=== PATIENT | male | born 1940 | race Caucasian/White ===

== ENCOUNTER 2019-07-20 11:52 | Inpatient (IN) | payer MEDICARE, BC ==
[2019-07-20] MEDS ORDERED: LIDOCAINE 1% INJ 10MG/ML (20 ML MDV) ONE ×2 (12:12→12:32)
[2019-07-20] MEDS ORDERED: NITROGLYCERIN OINT 1 INCH/GM PACKET TOPICAL ONE ×2 (12:58→13:01)
[2019-07-20] MEDS ORDERED: LIDOCAINE 1% INJ 10MG/ML (20 ML MDV) SQ ONE (13:00)
[2019-07-20] MEDS ORDERED: IV FLUID CONTINUATION 700 ML IV ONE (13:01)
[2019-07-20] MEDS ORDERED: MIDAZOLAM 2 MG/2 ML VIAL IV ONE (13:01)
[2019-07-20] MEDS ORDERED: NITROGLYCERIN SL TABS 0.4 MG TAB SUBLINGUAL ONE ×2 (13:24→13:29)
[2019-07-20] MEDS ORDERED: BIVALIRUDIN BOLUS 250 MG/50 ML IV ONE (13:29)
[2019-07-20] MEDS ORDERED: SODIUM CHLORIDE 0.9% IV ONE (13:30)
[2019-07-20] MEDS ORDERED: BIVALIRUDIN IV ONE (13:30)
[2019-07-20] MEDS ORDERED: niCARdipine 25 MG/10 ML VIAL ONE (13:33)
[2019-07-20] MEDS ORDERED: niCARdipine Syringe (1,000 mcg/10 mL) INTRACORON ONE (13:35)
[2019-07-20] MEDS: niCARdipine Syringe (1,000 mcg/10 mL) INTRACORON ONE ×2 (13:35→14:02)
[2019-07-20] MEDS ORDERED: DOPamine DRIP 800 MG in DEXTROSE/WATER 1 250ML.BAG IV ONE ×2 (13:36→13:37)
[2019-07-20] MEDS ORDERED: IOPAMIDOL-370 125ML BTL INJ ONE (13:41)
[2019-07-20] MEDS ORDERED: TICAGRELOR 90 MG TAB ONE (13:53)
[2019-07-20] MEDS ORDERED: TICAGRELOR 90 MG TAB PO ONE (13:56)
[2019-07-20] MEDS ORDERED: BIVALIRUDIN 250 MG in SODIUM CHLORIDE 0.9% 50 ML IV ONE (13:59)
[2019-07-20] MEDS ORDERED: IOPAMIDOL-370 100ML BTL INJ ONE (14:02)
[2019-07-20 14:36] LABS: Glucose,Whole Blood 215 mg/dL (75-99)
--- NOTE | 2019-07-20 15:25 | CONS ---
CONSULTATION CHIEF COMPLAINT: Chest pain. Israel is an 79-year-old gentleman with a history of rlm-viqjvos-awywjbmtu diabetes and hypertension who presented to [facility] with chest pain. He had some chest discomfort yesterday and worsening chest pain this morning. He describes it as a pressure that radiated to his back. His initial EKG showed acute ST-segment elevation in the inferior leads. He was given sublingual nitroglycerin, with which the ST- segment elevation has improved and the chest pain has resolved. At the time of my evaluation, he is pain-free, hemodynamically stable and in no apparent distress. PAST MEDICAL HISTORY: Significant for hypertension and diabetes. MEDICATIONS: Medications at home include aspirin, Lasix, Actos, glipizide, losartan, metformin and Ventolin. ALLERGIES: Allergies are as charted. FAMILY HISTORY: Negative for premature coronary artery disease. SOCIAL HISTORY: Negative for smoking, EtOH abuse or drug abuse. REVIEW OF SYSTEMS: HEENT is unremarkable. CARDIAC: As described above. RESPIRATORY: As described above. GI: Negative. GENITOURINARY: Negative. ALLERGY: Negative. IMMUNOLOGY: Negative. SKIN: Negative. MUSCULOSKELETAL: Negative. ENDOCRINE: Negative. DERMATOLOGY: Negative. CONSTITUTIONAL: Negative. ONCOLOGICAL: Negative. URANIUM PROCESSING SUPERVISOR: Negative. PHYSICAL EXAMINATION: Comfortable at rest. Vital signs are stable. There is no jugular venous distention. Chest exam reveals good air entry bilaterally. Heart exam reveals first and second heart sounds. No gallop. No murmur. Abdomen is soft, nontender. Examination of extremities did not reveal any edema. Peripheral pulses are palpable. ASSESSMENT: 1. Acute anterior wall myocardial infarction. 2. Hypertension. 3. emia. PLAN: The patient will undergo emergency cardiac catheterization with a view to performing angioplasty. MMODL / IJN: [id number] /
[2019-07-20] MEDS: DOPamine DRIP 800 MG in DEXTROSE/WATER 1 250ML.BAG IV SCH (15:27)
[2019-07-20] MEDS: SODIUM CHLORIDE 0.9% 1,000 ML IV SCH (15:29)
--- NOTE | 2019-07-20 18:00 | PTCA ---
PERCUTANEOUSTRANS CORORONARY ANGIOGRAPHY DATE OF SERVICE: 07/20/2019 PROCEDURE: Percutaneous transluminal coronary angioplasty and stenting of super dominant right coronary artery in the setting of an acute inferior myocardial infarction. Three drug- eluting stents were used. PERFORMED BY: Dr. Pili Carlos. Moderate conscious sedation time was 46 minutes. Patient was administered Versed. Oxygen saturation, hemodynamics and EKG were monitored closely. CLINICAL INFORMATION: Mr. Israel Diaz is an 79-year-old gentleman with history of type 2 diabetes, hypertension, hyperlipidemia, obesity and probable sleep apnea syndrome who came in with acute inferior PR from [facility]. He was seen and evaluated by Dr. Enciso, who performed a cardiac cath which revealed 80% proximal RCA stenosis with a heavy thrombus burden, and also major diagonal had significant disease. LAD and circumflex had noncritical disease. He was advised intervention that was performed expeditiously. PROCEDURE NOTE: The existing 6-Burmese introducer in the right femoral artery was used to perform the procedure. I used an all-right 3.5 guide catheter to cannulate the right coronary artery. Patient was administered Angiomax bolus and drip as per protocol. He also received 180 mg of Brilinta orally. I used a run-through wire to cross the lesion. Wire was kept distally. Without predilatation, an 18 mm long 4.0 caliber Xience stent was deployed, and soon after deployment there was some thrombus that went distally, and the entire vessel was occluded. The patient became transiently hypotensive with ST elevation. I gave him some nicardipine and he also received 3 mcg of dopamine very transiently. Blood pressure came back and the vessel opened up. I then noted that there was another lesion proximal to where I had deployed the stent, and this was addressed with another 8 mm Xience stent, and this telescoped into the previously placed stent. There was an acute marginal branch that came off at the junction of proximal and middle one third, and just above it there was a question of napkin ring lesion. In multiple views I was not convinced, but since patient had vessel closure with thrombus that started in that region and went distally, I decided to deploy another stent. I had difficulty getting past the existing stents. I used another truong wire with a Whisper wire, and over this Whisper wire I advanced an 8 mm 4.0 caliber Xience stent and deployed this at the acute marginal branch. Excellent angiographic result was achieved. Patient was hemodynamically stable. The sheath was taken out and Angio-Seal device used to secure hemostasis. He was sent to the ICU in a stable condition. Findings were discussed with the patient and I also communicated with his friend at home by telephone. He was sent to the ICU in a stable condition. MMLASHA / JACOBON: [id number] / NICOLE
[2019-07-20 18:04] LABS: Glucose,Whole Blood 237 mg/dL (75-99)
[2019-07-20 18:23] LABS: Basophils # (A) 0.1 k/uL (0-0.2); Basophils % (A) 1 %; Eosinophils # (A) 0.1 k/uL (0-0.7); Eosinophils % (A) 1 %; HCT 42.2 % (39.0-53.0); HGB 13.1 gm/dL (13.0-17.5); Lymphocytes # (A) 2.1 k/uL (1.0-4.8); Lymphocytes % (A) 19 %; MCH 29.6 pg (25.0-35.0); MCHC 31.1 g/dL (31.0-37.0); MCV 95.2 fL (80.0-100.0); Mean Platelet Volume 8.6; Monocytes # (A) 0.8 k/uL (0-1.0); Monocytes % (A) 7 %; Neutrophils # (A) 7.8 k/uL (1.3-7.7); Neutrophils % (A) 70 %; Platelet Count 205 k/uL (150-450); RBC 4.43 m/uL (4.30-5.90); RDW 14.5 % (11.5-15.5); WBC 11.2 k/uL (3.8-10.6)
[2019-07-20] MEDS: glipiZIDE 5 MG TAB PO SCH (18:32)
[2019-07-20 19:01] LABS: Potassium 4.8 mmol/L (3.5-5.1)
[2019-07-20 20:49] LABS: Glucose,Whole Blood 303 mg/dL (75-99)
[2019-07-20] MEDS: INSULIN ASPART (NovoLOG) 100 UNIT/ML VIAL SQ SCH (21:19)
[2019-07-21] MEDS: SODIUM CHLORIDE 0.9% 1,000 ML IV SCH (05:37)
[2019-07-21 05:59] LABS: Basophils # (A) 0.1 k/uL (0-0.2); Basophils % (A) 1 %; Eosinophils # (A) 0.1 k/uL (0-0.7); Eosinophils % (A) 1 %; HGB 12.7 gm/dL (13.0-17.5); Lymphocytes # (A) 2.2 k/uL (1.0-4.8); Lymphocytes % (A) 18 %; MCH 29.6 pg (25.0-35.0); MCHC 31.1 g/dL (31.0-37.0); MCV 95.5 fL (80.0-100.0); Mean Platelet Volume 8.9; Monocytes # (A) 1.1 k/uL (0-1.0); Monocytes % (A) 9 %; Neutrophils # (A) 8.4 k/uL (1.3-7.7); Neutrophils % (A) 69 %; Platelet Count 201 k/uL (150-450); RDW 14.7 % (11.5-15.5); WBC 12.2 k/uL (3.8-10.6)
[2019-07-21 06:17] LABS: Calcium 9.4 mg/dL (8.4-10.2); Potassium 4.5 mmol/L (3.5-5.1)
[2019-07-21 06:40] LABS: Glucose,Whole Blood 227 mg/dL (75-99)
[2019-07-21] MEDS: glipiZIDE 5 MG TAB PO SCH ×2 (06:50→17:08)
[2019-07-21] MEDS: INSULIN ASPART (NovoLOG) 100 UNIT/ML VIAL SQ SCH ×4 (06:50→20:27)
[2019-07-21] MEDS ORDERED: ATROPINE SULFATE 0.1 MG/ML 10ML SYRINGE ONE (08:17)
[2019-07-21] MEDS: TICAGRELOR 90 MG TAB PO SCH ×2 (08:30→20:26)
[2019-07-21] MEDS: ATORVASTATIN 80 MG TAB PO SCH (08:30)
[2019-07-21] MEDS: ASPIRIN 81 MG PO SCH (08:30)
[2019-07-21] MEDS ORDERED: FAMOTIDINE 20 MG/2 ML VIAL IV SCH (09:00)
[2019-07-21] MEDS ORDERED: METOPROLOL TARTRATE 12.5 MG TAB PO SCH (09:00)
[2019-07-21 11:42] LABS: Glucose,Whole Blood 261 mg/dL (75-99)
[2019-07-21] MEDS: LOSARTAN 50 MG TAB PO SCH ×2 (11:58→12:17)
--- NOTE | 2019-07-21 14:21 | PN ---
PROGRESS NOTE Mr. Diaz is an 79-year-old gentleman who is a fbr-qdnarfe-rdykntoke diabetic and hypertensive, who was admitted to the hospital with ST elevation myocardial infarction. The patient had a cardiac catheterization by Dr. Enciso and subsequently had percutaneous intervention by Dr. Pili Carlos. The patient had a stent placement to the RCA. Xience stent was deployed. The patient has remained relatively stable, but had developed a source of bradycardia with heart rates dipping into 30s and having junctional rhythm. Most seemed to be in sinus rhythm. He is on metoprolol, which is being held. He will continue with the rest of the medications. His activity to be increased as tolerated. He is also on dopamine. His blood pressure is running about 130/70, heart rate is varying between 38-85. O2 saturation 96%. Respirations are 12. His urine output is fair. LAB VALUES: [place] [address]. Electrolytes are within normal limits. Creatinine is 1.23, BUN is 31. Sugars are running between 250-300. His troponin went up maximal 33. Clinically lungs appear to be clear. Heart is regular, but slow. No JVD or peripheral edema. His groin is soft. FINAL IMPRESSION: 1. Status post inferior wall myocardial infarction and stent placement. 2. Bradycardia. PLAN: Will discontinue beta chata. Continue dopamine for now. Continue rest of the medication. Further recommendation will depend upon the course. He will stay in the ICU for 24 hours. MMLASHA / JACOBON: [id number] /
[2019-07-21 14:24] LABS: Hemoglobin A1C 8.9 % (4.0-6.0)
--- NOTE | 2019-07-21 15:12 | P.HPIM ---
History of Present Illness This is a pleasant 79 years old female with past medical history of diabetes mellitus, hypertension. She was transferred from [facility] chest pain. Patient presents with central chest pain, of daily duration of the left side radiating to the neck about 4/10 in severity, associated with little dyspnea, nausea and coughing. No vomiting. No change in urine or bowel habits EKG changes showing ST elevation in inferior leads. Patient has been evaluated by hand cigar making supervisor and underwent emergent cardiac angiogram, and found to have 80% blockage of the right coronary artery, patient underwent difficult PCI with 3 stent placed in the right coronary artery, during the procedure patient became transiently hypotensive and needed dopamine for short period. Postprocedure patient stabilized and transferred to the ICU for further monitoring and treatment Currently vitals are stable. Labs showed leukocytosis of 11.2 K, creatinine is elevated 1.4, glucose high at 215-303 Currently patient is on normal saline 75 mL/h, glipizide 5 mg twice a day, aspirin and Brilinta, metoprolol 12.5 mg Past Medical History Past Medical History: Diabetes Mellitus, Hypertension Additional Past Medical History / Comment(s): sinusitis, diverticulits History of Any Multi-Drug Resistant Organisms: None Reported Past Surgical History: Bowel Resection, Cholecystectomy Additional Past Surgical History / Comment(s): bowel resection d/t diverticulitis, colonoscopy Past Anesthesia/Blood Transfusion Reactions: No Reported Reaction Past Psychological History: No Psychological Hx Reported Additional Psychological History / Comment(s): pt lives with his girlfriend jose, is independant, no assitive devices.no outside services. 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 Smoking Status: Former smoker Past Alcohol Use History: Occasional Past Drug Use History: None Reported - Past Family History Mother Additional Family Medical History / Comment(s): reproductive cancer Father Family Medical History: Diabetes Mellitus Medications and Allergies Home Medications Medication Instructions Recorded Confirmed Type Losartan [Cozaar] 25 mg PO DAILY 01/29/15 07/20/19 History glipiZIDE [Glipizide] 10 mg PO BID 01/29/15 07/20/19 History metFORMIN HCL 1,000 mg PO BID 01/29/15 07/20/19 History Albuterol Sulfate [Ventolin HFA] 2 puff INHALATION RT-Q6H PRN 07/20/19 07/20/19 History Aspirin [Adult Low Dose Aspirin EC] 81 mg PO DAILY 07/20/19 07/20/19 History Furosemide [Lasix] 20 mg PO DAILY 07/20/19 07/20/19 History Pioglitazone [Actos] 30 mg PO DAILY 07/20/19 07/20/19 History Allergies Allergy/AdvReac Type Severity Reaction Status Date / Time Mushroom Allergy Vomiting Verified 01/29/15 19:06 Penicillins Allergy Unknown Verified 01/29/15 19:06 Physical Exam Vitals: Vital Signs Temp Pulse Resp BP Pulse Ox 07/21/19 12:00 98.4 F 38 L 21 137/60 96 07/21/19 11:00 85 12 127/66 92 L 07/21/19 10:30 51 L 12 129/54 93 L 07/21/19 10:00 40 L 22 112/72 97 07/21/19 09:30 41 L 10 L 119/61 93 L 07/21/19 09:00 50 L 12 120/52 96 07/21/19 08:30 60 12 115/47 92 L 07/21/19 08:00 98.1 F 51 L 12 122/65 93 L 07/21/19 07:30 25 L 12 130/51 92 L 07/21/19 07:00 50 L 7 L 139/52 97 07/21/19 06:30 50 L 15 133/52 94 L 07/21/19 06:00 36 L 19 92 L 07/21/19 05:30 31 L 21 117/42 93 L 07/21/19 05:00 48 L 9 L 107/61 93 L 07/21/19 04:30 45 L 16 98/57 95 07/21/19 04:00 97.7 F 50 L 9 L 88/45 89 L 07/21/19 03:30 46 L 25 H 102/70 95 07/21/19 03:00 53 L 13 104/53 93 L 07/21/19 02:30 31 L 16 121/108 90 L 07/21/19 02:00 53 L 17 96 07/21/19 01:30 39 L 21 121/108 91 L 07/21/19 01:00 65 9 L 110/66 90 L 07/21/19 00:30 55 L 20 112/61 93 L 07/21/19 00:00 97 F L 44 L 18 101/49 95 07/20/19 23:30 49 L 13 108/58 94 L 07/20/19 23:12 52 L 10 L 108/58 91 L 07/20/19 23:00 38 L 13 123/66 96 07/20/19 22:30 54 L 17 136/77 93 L 07/20/19 22:00 37 L 20 95 07/20/19 21:30 42 L 7 L 136/60 93 L 07/20/19 21:00 51 L 7 L 138/93 91 L 07/20/19 20:30 36 L 19 142/85 07/20/19 20:00 98.0 F 55 L 14 105/48 92 L 07/20/19 19:30 55 L 12 107/47 92 L 07/20/19 19:00 42 L 8 L 159/92 07/20/19 18:30 72 15 135/71 07/20/19 18:00 34 L 12 134/74 94 L 07/20/19 17:30 50 L 12 146/75 96 07/20/19 17:00 56 L 22 94 L 07/20/19 16:30 34 L 11 L 140/62 94 L 07/20/19 16:00 97.6 F 53 L 17 140/62 93 L 07/20/19 15:31 97.6 F 07/20/19 15:30 31 L 18 139/72 94 L Intake and Output 07/21/19 07/21/19 07/21/19 06:59 14:59 22:59 Intake Total 600 600 Output Total 1300 200 Balance -700 400 Intake: IV 600 600 Sodium Chloride 0.9% 1, 600 600 000 ml @ 50 mls/hr IV . Q20H [facility] Rx#:[id number] Output: Urine 1300 200 Other: Voiding Method Bedside Commode Bedside Commode Weight 143 kg Results CBC & Chem 7: 07/21/19 05:42 07/21/19 05:42 Labs: Abnormal Lab Results - Last 24 Hours (Table) 07/20/19 07/20/19 07/20/19 Range/Units 18:03 18:06 18:06 WBC 11.2 H (3.8-10.6) k/uL Hgb (13.0-17.5) gm/dL Neutrophils # 7.8 H (1.3-7.7) k/uL Monocytes # (0-1.0) k/uL BUN 33 H (9-20) mg/dL Creatinine 1.42 H (0.66-1.25) mg/dL Glucose 219 H (74-99) mg/dL POC Glucose (mg/dL) 237 H (75-99) mg/dL Hemoglobin A1c (4.0-6.0) % Troponin I (0.000-0.034) ng/mL 07/20/19 07/20/19 07/21/19 Range/Units 18:06 20:48 00:08 WBC (3.8-10.6) k/uL Hgb (13.0-17.5) gm/dL Neutrophils # (1.3-7.7) k/uL Monocytes # (0-1.0) k/uL BUN (9-20) mg/dL Creatinine (0.66-1.25) mg/dL Glucose (74-99) mg/dL POC Glucose (mg/dL) 303 H (75-99) mg/dL Hemoglobin A1c (4.0-6.0) % Troponin I 16.600 H* 30.000 H* (0.000-0.034) ng/mL 07/21/19 07/21/19 07/21/19 Range/Units 05:42 05:42 05:42 WBC 12.2 H (3.8-10.6) k/uL Hgb 12.7 L (13.0-17.5) gm/dL Neutrophils # 8.4 H (1.3-7.7) k/uL Monocytes # 1.1 H (0-1.0) k/uL BUN 31 H (9-20) mg/dL Creatinine (0.66-1.25) mg/dL Glucose 230 H (74-99) mg/dL POC Glucose (mg/dL) (75-99) mg/dL Hemoglobin A1c 8.9 H (4.0-6.0) % Troponin I (0.000-0.034) ng/mL 07/21/19 07/21/19 07/21/19 Range/Units 05:42 06:39 11:41 WBC (3.8-10.6) k/uL Hgb (13.0-17.5) gm/dL Neutrophils # (1.3-7.7) k/uL Monocytes # (0-1.0) k/uL BUN (9-20) mg/dL Creatinine (0.66-1.25) mg/dL Glucose (74-99) mg/dL POC Glucose (mg/dL) 227 H 261 H (75-99) mg/dL Hemoglobin A1c (4.0-6.0) % Troponin I 33.000 H* (0.000-0.034) ng/mL Thrombosis Risk Factor Assmnt - Choose All That Apply Any of the Below Risk Factors Present?: Yes Each Factor Represents 1 point: Acute AL Other Risk Factors: Yes Each Risk Factor Represents 2 Points: Patient confined to bed Each Risk Factor Represents 3 Points: Age 75 years or older Other congenital or acquired thrombophilia - If yes, enter type in comment: No Thrombosis Risk Factor Assessment Total Risk Factor Score: 6 Thrombosis Risk Factor Assessment Level: High Risk Assessment and Plan Assessment: Acute inferior STEMI, status post emergent cardiac angiogram with PCI of the Mild leukocytosis, mostly reactive, no signs symptoms of infection Acute kidney injury versus chronic kidney disease Diabetes mellitus, with hyperglycemia Hypertension Plan: This is a pleasant 79 years old female who presents with acute STEMI. Status post cardiac cath and stent placement. Cardiology are following the case closely. Continue with dual antiplatelet therapy. Check hemoglobin A1c. Follow-up WBC. Patient with kidney injury and on the top of that she got angiogram and was transected hypotensive, we'll call nephrology consult, continue with IV fluids Labs and medication were reviewed.. Continue same treatment. Continue with symptomatic treatment. Resume home medication. Monitor lytes and vitals. DVT and GI prophylaxis. Further recommendations of the clinical course of the patient DVT prophylaxis: Dual antiplatelet therapy GI Prophylaxis: Pepcid
[2019-07-21] MEDS ORDERED: HYDROmorphone 0.5 MG/0.5 ML SYRINGE IVP STA (16:37)
[2019-07-21 17:07] LABS: Glucose,Whole Blood 207 mg/dL (75-99)
--- NOTE | 2019-07-21 18:25 | XR ---
EXAMINATION TYPE: XR chest 1V portable DATE OF EXAM: 07/21/2019 COMPARISON: 01/29/2015 HISTORY: Short of breath TECHNIQUE: Single view FINDINGS: Heart is enlarged. There is mild pulmonary congestion. There are chest leads. There is no d efinite pleural effusion. Bony thorax appears intact. IMPRESSION: Cardiomegaly and mild pulmonary congestion that is increased compared to last exam. No ob vious heart failure.
--- NOTE | 2019-07-21 19:13 | CONS ---
CONSULTATION REASON FOR CONSULT: Renal failure. HISTORY OF PRESENT ILLNESS: Patient is an 79-year-old male who was admitted to the hospital with complaints of chest pain. The pain was radiating to the back. The patient initially presented to [facility] and was transferred to [place]. His EKG showed ST-segment elevation in the inferior leads. He was taken for cardiac catheterization yesterday and had stent 3 coronary stents placed. The patient denies any prior history of kidney diseases. His chest pain has resolved. The patient's creatinine was 1.23 mg/dL today. Yesterday it was 1.42 and review of previous labs shows a creatinine of about 1.3-1.2 in 2015. Patient does have a history of hypertension and type 2 diabetes. 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 The patient denies use of any nonsteroidal anti-inflammatory agents. He had been on angiotensin receptor blockers at home prior to admission. Patient's heart rate has also been low. His heart rate was as low as 25 this morning. Currently patient is maintained on dopamine. He is being followed by Cardiology. PAST MEDICAL HISTORY: Diabetes hypertension, dyslipidemia, osteoarthritis. MEDICATIONS: Medications prior to admission included aspirin, Lasix, Actos, glipizide, losartan, metformin, Ventolin. ALLERGIES: PENICILLIN AND MUSHROOMS. SOCIAL HISTORY: Previous history of smoking. No history of alcohol abuse or drug abuse. EXAMINATION: Patient is awake, comfortable, not in any acute distress. Blood pressure was 127/66, heart rate 51 per minute. He is afebrile. Examination of the heart S1, S2. Examination of lungs decreased breath sounds at bases. ABDOMEN: Soft, nontender. Examination of lower extremities shows chronic skin changes. Chronic edema is noted as well. CARD BOXER exam grossly intact. LAB: Show sodium of 139, potassium 4.5, chloride 105, BUN 31, serum creatinine 1.23. Troponin 33. Hemoglobin 12.7. UA is not available. ASSESSMENT: 1. Acute kidney injury, mostly associated with hypotension hypoperfusion. The patient is status post cardiac catheterization yesterday. Continue to monitor his renal function. 2. Chronic kidney disease NKF stage III. Previous creatinine about 1.3-1.2 mg/dL in 2015 as well. Most likely secondary to nephrosclerosis. Check urinalysis. Rule out proteinuria. 3. Type 2 diabetes, maintained on oral hypoglycemic agents including metformin. 4. Hypertension blood pressure had been low yesterday and sap plant maintenance consultant today. We can resume angiotensin receptor blockers. Consider decreasing dose if blood pressure remains low. 5. Bradycardia, maintained on dopamine, being followed by Cardiology. Not on any beta blockers. 6. Acute ST elevation myocardial infarction status post cardiac catheterization and coronary stent placement to RCA. PLAN: Continue normal saline at 50 mL an hour. May continue with angiotensin receptor blockers if blood pressure drops again. Decrease Cozaar to 25 mg per day. Avoid any other nephrotoxic agents. Check urinalysis. MMODL / IJN: [id number] /
[2019-07-21] MEDS: metFORMIN 500 MG TAB PO SCH (20:13)
[2019-07-21 20:24] LABS: Glucose,Whole Blood 206 mg/dL (75-99)
[2019-07-21] MEDS: FAMOTIDINE 20 MG TAB PO SCH (20:27)
[2019-07-21] MEDS: DOPamine DRIP 800 MG in DEXTROSE/WATER 1 250ML.BAG IV SCH (20:27)
[2019-07-21 22:59] LABS: Appearance,Urine Clear (Clear); Bacteria,Urine Rare /hpf; Bilirubin,Urine Negative (Negative); Blood,Urine Negative (Negative); Color,Urine Yellow; Glucose,Urine (UA) 3+ (Negative); Ketones,Urine Trace (Negative); Leukocyte Esterase,Urine Negative (Negative); Mucus,Urine Rare /hpf; Nitrite,Urine Negative (Negative); PH, Urine 5.5 (5.0-8.0); Protein,Urine 1+ (Negative); RBC,Urine <1 /hpf (0-5); Specific Gravity,Urine 1.035 (1.001-1.035); Squamous Epithelial Cell,Urine <1 /hpf (0-4); Urobilinogen,Urine <2.0 mg/dL (<2.0); WBC,Urine 2 /hpf (0-5)
[2019-07-22] MEDS ORDERED: IV FLUID CONTINUATION 1,000 ML IV ONE (02:45)
[2019-07-22] MEDS ORDERED: LIDOCAINE 1% INJ 10MG/ML (20 ML MDV) SQ ONE (03:07)
--- NOTE | 2019-07-22 03:27 | P.PCN ---
Date of Procedure: 07/22/19 Preoperative Diagnosis: Tachybradycardia syndrome with long pauses Postoperative Diagnosis: The same Procedure(s) Performed: Temporary pacemaker insertion Description of Procedure: Patient was brought to the lab in a fasting state. He was prepped and draped in the usual fashion. The right groin is infiltrated with lidocaine and right femoral vein was entered using Seldinger technique and a 6-Vincentian sheath was left in place. A balloon-tip temporary pacemaker wire was advanced under fluoroscopy near the floor of the right ventricle. Satisfactory thresholds were obtained. The pacemaker is set at a rate of 50 and an output of 3. She tolerated the procedure well. The duration of the procedure 13 minutes. Final impression: #1. Successful implantation of temporary pacemaker from the right groin, under fluoroscopy.
[2019-07-22 04:46] LABS: Basophils % (A) 0 %; Eosinophils % (A) 0 %; HCT 37.4 % (39.0-53.0); HGB 12.1 gm/dL (13.0-17.5); Lymphocytes # (A) 1.5 k/uL (1.0-4.8); Lymphocytes % (A) 11 %; MCH 31.1 pg (25.0-35.0); MCHC 32.4 g/dL (31.0-37.0); Mean Platelet Volume 9.8; Monocytes # (A) 1.4 k/uL (0-1.0); Monocytes % (A) 10 %; Neutrophils # (A) 10.8 k/uL (1.3-7.7); Neutrophils % (A) 77 %; Platelet Count 184 k/uL (150-450); RBC 3.89 m/uL (4.30-5.90); RDW 14.7 % (11.5-15.5)
[2019-07-22 04:56] LABS: Calcium 9.1 mg/dL (8.4-10.2); Potassium 4.5 mmol/L (3.5-5.1)
[2019-07-22 05:58] LABS: Glucose,Whole Blood 231 mg/dL (75-99)
[2019-07-22] MEDS: glipiZIDE 5 MG TAB PO SCH ×2 (06:42→17:06)
[2019-07-22] MEDS: MIDODRINE 5 MG TAB PO SCH ×2 (06:42→17:06)
[2019-07-22] MEDS: metFORMIN 500 MG TAB PO SCH ×2 (06:43→17:06)
[2019-07-22] MEDS: INSULIN ASPART (NovoLOG) 100 UNIT/ML VIAL SQ SCH ×4 (06:43→20:44)
--- NOTE | 2019-07-22 06:44 | XR ---
EXAMINATION TYPE: XR chest 1V portable DATE OF EXAM: 07/22/2019 HISTORY: shortness of breath. REFERENCE: Previous study dated 07/21/2019. FINDINGS: The heart is enlarged. There is improved vascular congestion. There is no ranjit edema. No d efinite pleural fluid is seen. There is some left basilar airspace disease either representing atelec tasis or pneumonia. IMPRESSION: OVERALL THERE HAS BEEN IMPROVEMENT IN THE APPEARANCE OF THE CHEST WITH DECREASING VASCULAR CONGESTION .
[2019-07-22] MEDS: SODIUM CHLORIDE 0.9% 1,000 ML IV SCH (06:46)
[2019-07-22] MEDS: ASPIRIN 81 MG PO SCH (08:31)
[2019-07-22] MEDS: TICAGRELOR 90 MG TAB PO SCH ×2 (08:31→20:44)
[2019-07-22] MEDS: ATORVASTATIN 80 MG TAB PO SCH (08:31)
[2019-07-22] MEDS: FAMOTIDINE 20 MG TAB PO SCH (08:31)
[2019-07-22 11:40] LABS: Glucose,Whole Blood 179 mg/dL (75-99)
[2019-07-22] MEDS: LOSARTAN 50 MG TAB PO SCH (11:45)
--- NOTE | 2019-07-22 14:13 | PN ---
PROGRESS NOTE This is an 79-year-old gentleman with history of hypertension, fxj-prccjnc-zpgqctcfl diabetes mellitus, who was admitted with inferior wall DE and underwent stent placement of the RCA. The patient has been hypotensive and bradycardic. He did develop significant pauses up to 10-16 seconds last night associated with dizziness. The patient had a temporary pacemaker implantation and has been stable since then. Still his blood pressure is running about 90-100 systolic. He is still on small dose of dopamine. His urine output for the last 24 hours has been about 1800. A chest x-ray has showed improvement in congestion. LAB WORK: [place] [address], hemoglobin is normal. His creatinine is 1.34. Blood sugars are running about 228. His vital signs showed normal temperature, heart rate is in the 50s, respirations are about 20, saturations are 99%. Clinically, patient appears to be in no acute distress. Does complain of discomfort related to staying in bed and inability to move. Lungs appear to be clear. Heart is regular. His echocardiogram showed mild hypokinesia of the inferior wall areas with ejection fraction 45 to 50 percent. IMPRESSION: 1. Status post acute inferior wall DE and stent placement. 2. Ischemic cardiomyopathy with hypokinesis, inferior wall with ejection fraction of 45-50 percent. 3. Sick sinus syndrome with long pauses, status post temporary pacemaker implantation. 4. Hypertension history, but current presenting hypotension. PLAN: We will continue his current medical therapy. Hold his Cozaar and beta blockers. Continue to monitor his rhythm. If the patient continues to have these long pauses without recovery, patient may need a permanent pacemaker implantation. Further recommendations depend upon the clinical course. MMODL / IJN: [id number] /
--- NOTE | 2019-07-22 14:49 | PN ---
PROGRESS NOTE Patient is seen for followup for acute kidney injury. The patient continues to have long pauses and his blood pressure was low. Urine output had dropped to about 0 mL/hour overnight. This morning, patient had a temporary pacemaker placed. His heart rate is better. Urine output seems to have picked up to about 15 mL/hour. The patient is comfortable awake he is not in any acute distress. PHYSICAL EXAMINATION: On examination, blood pressure was 94/52, heart rate 51 per minute. He is afebrile. Examination shows edema 1+ bilaterally. Abdomen is soft, nontender, obese. Examination of lungs decreased breath sounds at bases. COMMUNITY OUTREACH COORDINATOR exam grossly intact. LABS: Show sodium 138, potassium 4.5, chloride 102, BUN 31, creatinine 1.34, hemoglobin 12.1 g/dL. ASSESSMENT: 1. Acute kidney injury associated with hypotension, hypoperfusion. Serum creatinine is higher again as patient's blood pressure was quite low overnight. Urine output seems to have picked up now after pacemaker placement. Continue to monitor for now. I will discontinue the losartan as blood pressure remains low. I will also add midodrine. 2. Status post acute ST-elevation myocardial infarction status post cardiac catheterization with RCA stenting. 3. Bradycardia, associated with inferior wall myocardial infarction. 4. Hypotension associated with bradycardia, myocardial infarction, maintained on dopamine currently at 2 mics. 5. Hypertension. Blood pressure is currently low. Hold off on angiotensin receptor blockers. PLAN: Hold losartan for now. Add midodrine. Continue to avoid nephrotoxic agents. Repeat labs in a.m. MMHALL / IJN: [id number] /
[2019-07-22 16:52] LABS: Glucose,Whole Blood 166 mg/dL (75-99)
[2019-07-22 20:15] LABS: Glucose,Whole Blood 230 mg/dL (75-99)
--- NOTE | 2019-07-22 20:17 | P.PN ---
Subjective This is a pleasant 79 years old female with past medical history of diabetes mellitus, hypertension. She was transferred from [facility] chest pain. Patient presents with central chest pain, of daily duration of the left side radiating to the neck about 4/10 in severity, associated with little dyspnea, nausea and coughing. No vomiting. No change in urine or bowel habits EKG changes showing ST elevation in inferior leads. Patient has been evaluated by yard driver and underwent emergent cardiac angiogram, and found to have 80% blockage of the right coronary artery, patient underwent difficult PCI with 3 stent placed in the right coronary artery, during the procedure patient became transiently hypotensive and needed dopamine for short period. Postprocedure patient stabilized and transferred to the ICU for further monitoring and treatment Currently vitals are stable. 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 No chest pain or dyspnea. Hematology Technologist following the case closely, losartan. And medial drain was admitted, currently blood pressure 127/53 with heart rate is 50s, WBC 14.4 K, creatinine 1.3 and stable, glucose controlled less than 200 possible patient will need permanent pacemaker and down the root Review of systems CONSTITUTIONAL: No fever, no malaise, no fatigue. HEENT: No recent visual problems or hearing problems. Denied any sore throat. CARDIOVASCULAR: No orthopnea, PND, no palpitations, no syncope. PULMONARY: No shortness of breath, no cough, no hemoptysis. GASTROINTESTINAL: No diarrhea, no nausea, no vomiting, no abdominal pain. Normoactive bowel sounds. NEUROLOGICAL: No headaches, no weakness, no numbness. HEMATOLOGICAL: Denies any bleeding or petechiae. GENITOURINARY: Denies any burning micturition, frequency, or urgency. MUSCULOSKELETAL/RHEUMATOLOGICAL: Denies any joint pain, swelling, or any muscle pain. ENDOCRINE: Denies any polyuria or polydipsia. Active Medications Generic Name Dose Route Start Last Admin Trade Name Freq PRN Reason Stop Dose Admin Aspirin 81 mg 07/21/19 09:00 07/22/19 08:31 Aspirin PO 81 mg DAILY PRIYA Administration Atorvastatin Calcium 80 mg 07/21/19 09:00 07/22/19 08:31 Lipitor PO 80 mg DAILY PRIYA Administration Famotidine 20 mg 07/23/19 09:00 Pepcid PO DAILY PRIYA Glipizide 5 mg 07/20/19 17:30 07/22/19 17:06 Glucotrol PO 5 mg AC-BID PRIYA Administration Dopamine HCl/Dextrose 800 mg/ 250 mls @ 8.114 mls/hr 07/20/19 15:00 07/21/19 20:27 IV Solution IV 3 mcg/kg/min .Q24H PRIYA 8.114 mls/hr Administration Protocol 3 MCG/KG/MIN Sodium Chloride 1,000 mls @ 20 mls/hr 07/22/19 03:30 07/22/19 06:46 Saline 0.9% IV 20 mls/hr .Q24H PRIYA Administration Insulin Aspart 0 unit 07/20/19 21:00 07/22/19 17:06 Novolog SQ 2 unit ACHS PRIYA Administration Protocol Losartan Potassium 50 mg 07/21/19 09:00 07/22/19 11:45 Cozaar PO Not Given DAILY [facility] Metformin HCl 500 mg 07/21/19 19:15 07/22/19 17:06 Glucophage PO 500 mg BID-W/MEALS PRIYA Administration Midodrine 10 mg 07/22/19 07:30 07/22/19 17:06 Proamatine PO 10 mg AC-BID PRIYA Administration Ticagrelor 90 mg 07/21/19 09:00 07/22/19 08:31 Brilinta PO 90 mg BID PRIYA Administration Objective - Vital Signs Vital signs: Vital Signs Temp 98.8 F 07/22/19 16:00 Pulse 58 L 07/22/19 19:00 Resp 22 07/22/19 19:00 BP 119/51 07/22/19 19:00 Pulse Ox 96 07/22/19 19:00 Intake & Output 07/22/19 07/22/19 07/23/19 06:59 18:59 06:59 Intake Total 860.306 380 30 Output Total 570 214 30 Balance 290.306 166 0 Weight 143.2 kg Intake: IV 625 280 30 Sodium Chloride 0.9% 1, 575 160 20 000 ml @ 50 mls/hr IV . Q20H PRIYA Rx#:[id number] TVP 10 mL/hour .9 120 10 Intake, IV Titration 235.306 100 Amount DOPamine DRIP 800 mg In 235.306 Dextrose/Water 1 250ml. bag @ 3 MCG/KG/MIN 8.114 mls/hr IV .Q24H PRIYA Rx#: [id number] Sodium Chloride 0.9% 1, 100 000 ml @ 20 mls/hr IV . Q24H PRIYA Rx#:[id number] Output: Urine 570 214 30 Other: Voiding Method Indwelling Catheter Indwelling Catheter - Exam GENERAL: The patient is alert and oriented x3, not in any acute distress. Well developed, well nourished. HEENT: Pupils are round and equally reacting to light. EOMI. No scleral icterus. No conjunctival pallor. Normocephalic, atraumatic. No pharyngeal erythema. No thyromegaly. CARDIOVASCULAR: S1 and S2 present. No murmurs, rubs, or gallops. PULMONARY: Chest is clear to auscultation, no wheezing or crackles. ABDOMEN: Soft, nontender, nondistended, normoactive bowel sounds. No palpable organomegaly. MUSCULOSKELETAL: No joint swelling or deformity. EXTREMITIES: No cyanosis, clubbing, or pedal edema. NEUROLOGICAL: Gross neurological examination did not reveal any focal deficits. SKIN: No rashes. no petechiae. - Labs CBC & Chem 7: 07/22/19 04:12 07/22/19 04:12 Labs: Abnormal Lab Results - Last 24 Hours (Table) 07/21/19 07/21/19 07/22/19 Range/Units 20:22 22:20 04:12 WBC 14.0 H (3.8-10.6) k/uL RBC 3.89 L (4.30-5.90) m/uL Hgb 12.1 L (13.0-17.5) gm/dL Hct 37.4 L (39.0-53.0) % Neutrophils # 10.8 H (1.3-7.7) k/uL Monocytes # 1.4 H (0-1.0) k/uL BUN (9-20) mg/dL Creatinine (0.66-1.25) mg/dL Glucose (74-99) mg/dL POC Glucose (mg/dL) 206 H (75-99) mg/dL Urine Protein 1+ H (Negative) Urine Glucose (UA) 3+ H (Negative) Urine Ketones Trace H (Negative) Urine Bacteria Rare H (None) /hpf Urine Mucus Rare H (None) /hpf 07/22/19 07/22/19 07/22/19 Range/Units 04:12 05:56 11:39 WBC (3.8-10.6) k/uL RBC (4.30-5.90) m/uL Hgb (13.0-17.5) gm/dL Hct (39.0-53.0) % Neutrophils # (1.3-7.7) k/uL Monocytes # (0-1.0) k/uL BUN 31 H (9-20) mg/dL Creatinine 1.34 H (0.66-1.25) mg/dL Glucose 228 H (74-99) mg/dL POC Glucose (mg/dL) 231 H 179 H (75-99) mg/dL Urine Protein (Negative) Urine Glucose (UA) (Negative) Urine Ketones (Negative) Urine Bacteria (None) /hpf Urine Mucus (None) /hpf 07/22/19 Range/Units 16:51 WBC (3.8-10.6) k/uL RBC (4.30-5.90) m/uL Hgb (13.0-17.5) gm/dL Hct (39.0-53.0) % Neutrophils # (1.3-7.7) k/uL Monocytes # (0-1.0) k/uL BUN (9-20) mg/dL Creatinine (0.66-1.25) mg/dL Glucose (74-99) mg/dL POC Glucose (mg/dL) 166 H (75-99) mg/dL Urine Protein (Negative) Urine Glucose (UA) (Negative) Urine Ketones (Negative) Urine Bacteria (None) /hpf Urine Mucus (None) /hpf Assessment and Plan Assessment: Acute inferior STEMI, status post emergent cardiac angiogram with PCI of the RCA Ischemic cardiomyopathy with ejection fraction 45-50% Sick sinus syndrome status post temporal pacemaker placement Mild leukocytosis, mostly reactive, no signs symptoms of infection Acute kidney injury versus chronic kidney disease Diabetes mellitus, with hyperglycemia Hypertension Plan: This is a pleasant 79 years old female who presents with acute STEMI. Status post cardiac cath and stent placement. Cardiology are following the case closely. Continue with dual antiplatelet therapy. Check hemoglobin A1c. Follow-up WBC. Patient with kidney injury and on the top of that she got angiogram and was transected hypotensive, we'll call nephrology consult, continue with IV fluids Labs and medication were reviewed.. Continue same treatment. Continue with symptomatic treatment. Resume home medication. Monitor lytes and vitals. DVT and GI prophylaxis. Further recommendations of the clinical course of the patient DVT prophylaxis: Dual antiplatelet therapy GI Prophylaxis: Pepcid
[2019-07-23 04:27] LABS: Basophils # (A) 0.1 k/uL (0-0.2); Basophils % (A) 0 %; Eosinophils # (A) 0.2 k/uL (0-0.7); Eosinophils % (A) 1 %; HGB 11.7 gm/dL (13.0-17.5); Hypochromasia Slight; Lymphocytes # (A) 2.4 k/uL (1.0-4.8); Lymphocytes % (A) 17 %; MCH 30.8 pg (25.0-35.0); MCHC 31.6 g/dL (31.0-37.0); MCV 97.4 fL (80.0-100.0); Mean Platelet Volume 9.9; Monocytes # (A) 1.6 k/uL (0-1.0); Monocytes % (A) 12 %; Neutrophils # (A) 9.4 k/uL (1.3-7.7); Neutrophils % (A) 67 %; Platelet Count 185 k/uL (150-450); RDW 14.9 % (11.5-15.5)
[2019-07-23 04:48] LABS: Calcium 8.5 mg/dL (8.4-10.2); Potassium 4.5 mmol/L (3.5-5.1)
[2019-07-23] MEDS: DOPamine DRIP 800 MG in DEXTROSE/WATER 1 250ML.BAG IV SCH ×2 (05:32→16:33)
[2019-07-23] MEDS: SODIUM CHLORIDE 0.9% 1,000 ML IV SCH (05:33)
[2019-07-23 06:53] LABS: Glucose,Whole Blood 200 mg/dL (75-99)
[2019-07-23] MEDS: INSULIN ASPART (NovoLOG) 100 UNIT/ML VIAL SQ SCH ×4 (07:04→20:22)
[2019-07-23] MEDS: glipiZIDE 5 MG TAB PO SCH ×2 (07:05→16:49)
[2019-07-23] MEDS: metFORMIN 500 MG TAB PO SCH (07:05)
[2019-07-23] MEDS: MIDODRINE 5 MG TAB PO SCH ×2 (07:05→16:47)
[2019-07-23] MEDS: FAMOTIDINE 20 MG TAB PO SCH (08:28)
[2019-07-23] MEDS: TICAGRELOR 90 MG TAB PO SCH ×2 (08:28→20:22)
[2019-07-23] MEDS: ASPIRIN 81 MG PO SCH (08:28)
[2019-07-23] MEDS: LOSARTAN 50 MG TAB PO SCH (08:29)
[2019-07-23] MEDS: ATORVASTATIN 80 MG TAB PO SCH (08:29)
--- NOTE | 2019-07-23 10:55 | P.PN ---
Subjective This is a pleasant 79 years old female with past medical history of diabetes mellitus, hypertension. She was transferred from [facility] chest pain. Patient presents with central chest pain, of daily duration of the left side radiating to the neck about 4/10 in severity, associated with little dyspnea, nausea and coughing. No vomiting. No change in urine or bowel habits EKG changes showing ST elevation in inferior leads. Patient has been evaluated by parts processor and underwent emergent cardiac angiogram, and found to have 80% blockage of the right coronary artery, patient underwent difficult PCI with 3 stent placed in the right coronary artery, during the procedure patient became transiently hypotensive and needed dopamine for short period. Postprocedure patient stabilized and transferred to the ICU for further monitoring and treatment Currently vitals are stable. 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 No chest pain or dyspnea. Software Tools Engineer following the case closely, losartan. And medial drain was admitted, currently blood pressure 127/53 with heart rate is 50s, WBC 14.4 K, creatinine 1.3 and stable, glucose controlled less than 200 possible patient will need permanent pacemaker and down the root 07/23/2019 Patient remains to the ICU for close monitoring of his heart rate monitoring. He is fully awake and oriented, no chest pain or dyspnea. He feels generally weak. Vital signs stable, heart rate is 49-52, blood pressure 117/58, temporal pacemaker is in place. Labs reviewed showed creatinine 1.5, WBC 14 K, glucose 166-230. Hemoglobin A1c is 8.9, he wasn't glyburide 5 mg twice a day, metformin 500 mg was added, he going to increase the dose to 850 twice a day Cardiology team R following the patient closely and he might need permanent pacemaker depending on his progress and stability We will check TSH Review of systems CONSTITUTIONAL: No fever, no malaise, no fatigue. HEENT: No recent visual problems or hearing problems. Denied any sore throat. CARDIOVASCULAR: No orthopnea, PND, no palpitations, no syncope. PULMONARY: No shortness of breath, no cough, no hemoptysis. GASTROINTESTINAL: No diarrhea, no nausea, no vomiting, no abdominal pain. Normoactive bowel sounds. NEUROLOGICAL: No headaches, no weakness, no numbness. HEMATOLOGICAL: Denies any bleeding or petechiae. GENITOURINARY: Denies any burning micturition, frequency, or urgency. MUSCULOSKELETAL/RHEUMATOLOGICAL: Denies any joint pain, swelling, or any muscle pain. ENDOCRINE: Denies any polyuria or polydipsia. Active Medications Generic Name Dose Route Start Last Admin Trade Name Freq PRN Reason Stop Dose Admin Aspirin 81 mg 07/21/19 09:00 07/23/19 08:28 Aspirin PO 81 mg DAILY PRIYA Administration Atorvastatin Calcium 80 mg 07/21/19 09:00 07/23/19 08:29 Lipitor PO 80 mg DAILY PRIYA Administration Famotidine 20 mg 07/23/19 09:00 07/23/19 08:28 Pepcid PO 20 mg DAILY PRIYA Administration Glipizide 5 mg 07/20/19 17:30 07/23/19 07:05 Glucotrol PO 5 mg AC-BID PRIYA Administration Dopamine HCl/Dextrose 800 mg/ 250 mls @ 8.114 mls/hr 07/20/19 15:00 07/23/19 10:05 IV Solution IV 0 mcg/kg/min .Q24H PRIYA 0 mls/hr Titration Protocol 3 MCG/KG/MIN Sodium Chloride 1,000 mls @ 20 mls/hr 07/22/19 03:30 07/23/19 05:33 Saline 0.9% IV 20 mls/hr .Q24H PRIYA Administration Insulin Aspart 0 unit 07/20/19 21:00 07/23/19 07:04 Novolog SQ 3 unit ACHS PRIYA Administration Protocol Losartan Potassium 50 mg 07/21/19 09:00 07/23/19 08:29 Cozaar PO Not Given DAILY PRIYA Metformin HCl 500 mg 07/21/19 19:15 07/23/19 07:05 Glucophage PO 500 mg BID-W/MEALS PRIYA Administration Midodrine 10 mg 07/22/19 07:30 07/23/19 07:05 Proamatine PO 10 mg AC-BID PRIYA Administration Ticagrelor 90 mg 07/21/19 09:00 07/23/19 08:28 Brilinta PO 90 mg BID PRIYA Administration Objective - Vital Signs Vital signs: Vital Signs Temp 98.5 F 07/23/19 04:00 Pulse 51 L 07/23/19 10:00 Resp 16 07/23/19 10:00 BP 117/58 07/23/19 10:00 Pulse Ox 97 07/23/19 10:00 Intake & Output 07/22/19 07/23/19 07/23/19 18:59 06:59 18:59 Intake Total 380 571.298 54.611 Output Total 214 295 30 Balance 166 276.298 24.611 Weight 144 kg Intake: IV 280 330 30 Sodium Chloride 0.9% 1, 160 220 20 000 ml @ 50 mls/hr IV . Q20H PRIYA Rx#:[id number] TVP 10 mL/hour .9 120 110 10 Intake, IV Titration 100 241.298 24.611 Amount DOPamine DRIP 800 mg In 241.298 24.611 Dextrose/Water 1 250ml. bag @ 3 MCG/KG/MIN 8.114 mls/hr IV .Q24H PRIYA Rx#: [id number] Sodium Chloride 0.9% 1, 100 000 ml @ 20 mls/hr IV . Q24H PRIYA Rx#:[id number] Output: Urine 214 295 30 Other: Voiding Method Indwelling Catheter Indwelling Catheter - Exam GENERAL: The patient is alert and oriented x3, not in any acute distress. Well developed, well nourished. HEENT: Pupils are round and equally reacting to light. EOMI. No scleral icterus. No conjunctival pallor. Normocephalic, atraumatic. No pharyngeal erythema. No thyromegaly. CARDIOVASCULAR: S1 and S2 present. No murmurs, rubs, or gallops. PULMONARY: Chest is clear to auscultation, no wheezing or crackles. ABDOMEN: Soft, nontender, nondistended, normoactive bowel sounds. No palpable organomegaly. MUSCULOSKELETAL: No joint swelling or deformity. EXTREMITIES: No cyanosis, clubbing, or pedal edema. NEUROLOGICAL: Gross neurological examination did not reveal any focal deficits. SKIN: No rashes. no petechiae. - Labs CBC & Chem 7: 07/23/19 04:00 07/23/19 04:00 Labs: Abnormal Lab Results - Last 24 Hours (Table) 07/22/19 07/22/19 07/22/19 Range/Units 11:39 16:51 20:14 WBC (3.8-10.6) k/uL RBC (4.30-5.90) m/uL Hgb (13.0-17.5) gm/dL Hct (39.0-53.0) % Neutrophils # (1.3-7.7) k/uL Monocytes # (0-1.0) k/uL BUN (9-20) mg/dL Creatinine (0.66-1.25) mg/dL Glucose (74-99) mg/dL POC Glucose (mg/dL) 179 H 166 H 230 H (75-99) mg/dL 07/23/19 07/23/19 07/23/19 Range/Units 04:00 04:00 06:51 WBC 14.0 H (3.8-10.6) k/uL RBC 3.80 L (4.30-5.90) m/uL Hgb 11.7 L (13.0-17.5) gm/dL Hct 37.0 L (39.0-53.0) % Neutrophils # 9.4 H (1.3-7.7) k/uL Monocytes # 1.6 H (0-1.0) k/uL BUN 44 H (9-20) mg/dL Creatinine 1.56 H (0.66-1.25) mg/dL Glucose 173 H (74-99) mg/dL POC Glucose (mg/dL) 200 H (75-99) mg/dL Assessment and Plan Assessment: Acute inferior STEMI, status post emergent cardiac angiogram with PCI of the RCA Ischemic cardiomyopathy with ejection fraction 45-50% Sick sinus syndrome status post temporal pacemaker placement Mild leukocytosis, mostly reactive, no signs symptoms of infection Acute kidney injury versus chronic kidney disease Diabetes mellitus, with hyperglycemia Hypertension Plan: This is a pleasant 79 years old female who presents with acute STEMI. Status post cardiac cath and stent placement. Cardiology are following the case close ly. Continue with dual antiplatelet therapy. Check hemoglobin A1c. Follow-up WBC. Patient with kidney injury and on the top of that she got angiogram and was transected hypotensive, we'll call nephrology consult, continue with IV fluids Labs and medication were reviewed.. Continue same treatment. Continue with symptomatic treatment. Resume home medication. Monitor lytes and vitals. DVT and GI prophylaxis. Further recommendations of the clinical course of the patient DVT prophylaxis: Dual antiplatelet therapy GI Prophylaxis: Pepcid
[2019-07-23 11:46] LABS: Glucose,Whole Blood 173 mg/dL (75-99)
--- NOTE | 2019-07-23 12:44 | PN ---
PROGRESS NOTE Israel is an 79-year-old gentleman who is admitted to hospital with acute inferior wall myocardial infarction, I did an emergent heart catheterization on patient and angioplasty of right coronary artery. Over the weekend, he developed positive sinus pauses and went on to have a temporary pacemaker. This morning, he is intermittently using the pacemaker otherwise free of cardiac symptoms. Heart rate is 50 beats per minute. Blood pressure is 117/58, respiratory rate is 18, O2 saturation is 97%. There is no jugular venous distention. Chest exam reveals diminished air entry at the bases. Heart exam reveals first and second heart sounds. No gallop. No murmur. Abdomen is soft. Exam of extremities did not reveal any edema. Peripheral pulses are felt. LABS: Show a hemoglobin of 11.7, potassium is 4.5, creatinine is 1.5. ASSESSMENT: 1. Acute inferior wall myocardial infarction, status post catheterization and angioplasty of right coronary artery. 2. Sinus pause, status post temporary pacemaker. 3. Chronic renal insufficiency. PLAN: If patient continues to use the temporary pacemaker tomorrow, we will consider permanent pacemaker implantation. I will also obtain a 2D echo on him to evaluate his LV function. MMODL / IJN: [id number] /
[2019-07-23 13:29] LABS: Glucose,Whole Blood 188 mg/dL (75-99)
[2019-07-23 16:41] LABS: Glucose,Whole Blood 159 mg/dL (75-99)
[2019-07-23] MEDS ORDERED: metFORMIN 850 MG TAB PO SCH (17:30)
--- NOTE | 2019-07-23 19:56 | PN ---
PROGRESS NOTE Patient is seen for followup for acute kidney injury. His blood pressure and heart rate have stabilized now. He is currently off of dopamine. Urine output has picked up to about 50 to 40 mL/hour. Overall patient is stable. He is being considered for possible permanent pacemaker placement. On examination this morning, blood pressure was 108/44, heart rate 50 per minute. He is afebrile. EXAMINATION OF THE HEART: S1 and S2. EXAMINATION OF LUNGS: Decreased breath sounds at bases. ABDOMEN: Soft, non-tender. Examination of lower extremities shows trace edema bilaterally. WATER VALVE REPAIRER exam is grossly intact. Labs show sodium 137, potassium 4.5, chloride 104, BUN 44, creatinine 1.56, hemoglobin 11.7 g/dL. ASSESSMENT: 1. Acute kidney injury secondary to hypotension, hypoperfusion as well as a component of contrast nephropathy. Serum creatinine is higher, although urine output has picked up. It should stabilize over the next few days once patient is more hemodynamically stable. He is currently off of dopamine, and we will continue to monitor blood pressure and heart rate. Continue with the Midodrine. Angiotensin receptor blockers are on hold, given the significant hypotension. 2. Status post inferior wall myocardial infarction, status post right coronary artery stenting. 3. Bradycardia associated with inferior myocardial infarction, status post temporary venous pacemaker. 4. Type 2 diabetes, maintained on Glucotrol. 5. History of hypertension. Blood pressures had been low and angiotensin receptor blockers currently on hold. PLAN: Maintain off of dopamine. Avoid any other nephrotoxic agents. Continue with the midodrine. Continue to hold off on angiotensin receptor blockers, given the low blood pressure. Repeat labs in a.m. MMODL / IJN: [id number] /
[2019-07-23 20:17] LABS: Glucose,Whole Blood 183 mg/dL (75-99)
[2019-07-23] MEDS: INSULIN DETEMIR (LEVEMIR) 100 UNIT/ML SYR SQ SCH (21:45)
[2019-07-24 05:15] LABS: Basophils # (A) 0.1 k/uL (0-0.2); Basophils % (A) 1 %; Eosinophils # (A) 0.3 k/uL (0-0.7); Eosinophils % (A) 3 %; HCT 35.6 % (39.0-53.0); HGB 10.9 gm/dL (13.0-17.5); Hypochromasia Slight; Lymphocytes # (A) 1.7 k/uL (1.0-4.8); Lymphocytes % (A) 16 %; MCH 29.4 pg (25.0-35.0); MCHC 30.6 g/dL (31.0-37.0); MCV 96.1 fL (80.0-100.0); Monocytes # (A) 1.2 k/uL (0-1.0); Monocytes % (A) 12 %; Neutrophils # (A) 7.1 k/uL (1.3-7.7); Neutrophils % (A) 67 %; Platelet Count 173 k/uL (150-450); RBC 3.71 m/uL (4.30-5.90); RDW 14.7 % (11.5-15.5); WBC 10.6 k/uL (3.8-10.6)
[2019-07-24 05:26] LABS: Calcium 8.4 mg/dL (8.4-10.2); Potassium 3.9 mmol/L (3.5-5.1)
[2019-07-24] MEDS: SODIUM CHLORIDE 0.9% 1,000 ML IV SCH (06:32)
[2019-07-24] MEDS: MIDODRINE 5 MG TAB PO SCH ×2 (06:34→16:54)
[2019-07-24 06:46] LABS: Glucose,Whole Blood 156 mg/dL (75-99)
[2019-07-24] MEDS: INSULIN ASPART (NovoLOG) 100 UNIT/ML VIAL SQ SCH ×4 (06:49→21:02)
[2019-07-24] MEDS: glipiZIDE 5 MG TAB PO SCH ×2 (06:50→16:57)
[2019-07-24] MEDS: DOPamine DRIP 800 MG in DEXTROSE/WATER 1 250ML.BAG IV SCH (10:48)
[2019-07-24 11:46] LABS: Glucose,Whole Blood 165 mg/dL (75-99)
[2019-07-24] MEDS: TICAGRELOR 90 MG TAB PO SCH ×2 (12:13→21:02)
[2019-07-24] MEDS: FAMOTIDINE 20 MG TAB PO SCH (12:13)
[2019-07-24] MEDS: LOSARTAN 50 MG TAB PO SCH (12:13)
[2019-07-24] MEDS: ASPIRIN 81 MG PO SCH (12:13)
[2019-07-24] MEDS: ATORVASTATIN 80 MG TAB PO SCH (12:13)
--- NOTE | 2019-07-24 14:42 | CONS ---
CHUCK Wood is an 79-year-old gentleman who was admitted to hospital with acute inferior wall myocardial infarction, underwent cardiac catheterization and angioplasty of right coronary artery. His ejection fraction is 40%-45%. He developed intermittent episodes of sinus pauses and underwent temporary pacemaker on Tuesday. He remains in sinus rhythm but is frequently using his pacemaker and will need a permanent pacemaker at this time. I am going to have Dr. Hutton do this tomorrow. PHYSICAL EXAM: Hear rate is 50 beats per minute. Blood pressure is 132/70, respiratory rate is 18, O2 saturation is 98%. There is no jugular venous distention. Carotid upstroke is normal. There is no bruit. Chest exam reveals diminished air entry at the bases, heart exam reveals first and second heart sounds. No gallop. No murmur. Abdomen is soft. Exam of extremities did not reveal any edema. Peripheral pulses are felt. LABS: Show that the hemoglobin is 10.9, potassium is 3.9, creatinine is 1.3. The patient is currently on aspirin, Lipitor, insulin, Cozaar and Brilinta. ASSESSMENT: 1. Acute inferior wall myocardial infarction, status post catheterization and angioplasty. 2. Hypertension. 3. Symptomatic bradycardia. PLAN: Patient will undergo permanent pacemaker tomorrow. MMODL / IJN: [id number] /
--- NOTE | 2019-07-24 15:24 | PN ---
PROGRESS NOTE Patient is seen for followup for acute kidney injury associated with hypotension, bradycardia, inferior MO. Renal function has improved now that patient is hemodynamically stable. He had a temporary venous pacemaker placed. Heart rate is been staying high 40s to 50s. Patient is being considered for permanent pacemaker placement, awaiting Cardiology decision. His urine output has picked up and renal function has improved with creatinine down to 1.36 today from 1.56 yesterday. PHYSICAL EXAMINATION: On examination, blood pressure was 124/59, heart rate 51 per minute, patient is afebrile. Examination of the heart S1, S2. Examination of the lungs, decreased breath sounds at bases. Abdomen is soft, nontender. Examination of the lower extremities shows chronic skin changes, edema 1+ bilaterally,. COMMUNICATIONS ANALYST exam grossly intact. LABS: Show hemoglobin 10.9, sodium 139, potassium 3.9, BUN 44, creatinine 1.36, calcium 8.4. ASSESSMENT: 1. Acute kidney injury associated with hypotension, hypoperfusion, an element of acute tubular necrosis from contrast nephropathy, currently improved significantly. Now that the blood pressure has improved, we can hold the midodrine and use if blood pressure systolic less than 100. 2. Hypotension associated with inferior MO, now improved. Once blood pressure is better, patient can resume his angiotensin receptor blockers. 3. Status post inferior wall MO, status post right coronary artery stents. 4. Chronic kidney disease stage iii previous creatinine 1.3-1.2 mg/dL in 2015. Etiology is nephrosclerosis. PLAN: Hold midodrine can resume angiotensin receptor blockers if blood pressure remains consistently above 120. Repeat labs in a.m. avoid nephrotoxic agents. MMODL / IJN: [id number] /
[2019-07-24 16:47] LABS: Glucose,Whole Blood 248 mg/dL (75-99)
--- NOTE | 2019-07-24 19:04 | P.PN ---
Subjective This is a pleasant 79 years old female with past medical history of diabetes mellitus, hypertension. She was transferred from [facility] chest pain. Patient presents with central chest pain, of daily duration of the left side radiating to the neck about 4/10 in severity, associated with little dyspnea, nausea and coughing. No vomiting. No change in urine or bowel habits EKG changes showing ST elevation in inferior leads. Patient has been evaluated by customer services supervisor and underwent emergent cardiac angiogram, and found to have 80% blockage of the right coronary artery, patient underwent difficult PCI with 3 stent placed in the right coronary artery, during the procedure patient became transiently hypotensive and needed dopamine for short period. Postprocedure patient stabilized and transferred to the ICU for further monitoring and treatment Currently vitals are stable. Labs showed leukocytosis of 11.2 K, creatinine is elevated 1.4, glucose high at 215-303 Currently patient is on normal saline 75 mL/h, glipizide 5 mg twice a day, aspirin and Brilinta, metoprolol 12.5 mg 07/22/2019 Patient remains in the ICU, his heart rate dropped to 20s overnight with low blood pressure, found to have tachycardia bradycardia syndrome with long pauses customer services supervisor placed temporal pacemaker, he is awake and oriented in the ICU. No chest pain or dyspnea. Varnish Blender following the case closely, losartan. And medial drain was admitted, currently blood pressure 127/53 with heart rate is 50s, WBC 14.4 K, creatinine 1.3 and stable, glucose controlled less than 200 possible patient will need permanent pacemaker and down the root 07/23/2019 Patient remains to the ICU for close monitoring of his heart rate monitoring. He is fully awake and oriented, no chest pain or dyspnea. He feels generally weak. Vital signs stable, heart rate is 49-52, blood pressure 117/58, temporal pacemaker is in place. Labs reviewed showed creatinine 1.5, WBC 14 K, glucose 166-230. Hemoglobin A1c is 8.9, he wasn't glyburide 5 mg twice a day, metformin 500 mg was added, he going to increase the dose to 850 twice a day Cardiology team R following the patient closely and he might need permanent pacemaker depending on his progress and stability We will check TSH 07/24/2019 Patient lying in bed, no symptoms reported other than generalized weakness. No chest pain. No dyspnea. No dizziness Size Roller Operator team appointment for permanent pacemaker placement tomorrow Losartan was started. Patient is on aspirin and Brillinta, Hemoglobin A1c 8.9, patient is on glyburide, metformin is on hold. Place the patient on Levemir 5 units at bedtime Review of systems CONSTITUTIONAL: No fever, no malaise, no fatigue. HEENT: No recent visual problems or hearing problems. Denied any sore throat. CARDIOVASCULAR: No orthopnea, PND, no palpitations, no syncope. PULMONARY: No shortness of breath, no cough, no hemoptysis. GASTROINTESTINAL: No diarrhea, no nausea, no vomiting, no abdominal pain. Normoactive bowel sounds. NEUROLOGICAL: No headaches, no weakness, no numbness. HEMATOLOGICAL: Denies any bleeding or petechiae. GENITOURINARY: Denies any burning micturition, frequency, or urgency. MUSCULOSKELETAL/RHEUMATOLOGICAL: Denies any joint pain, swelling, or any muscle pain. ENDOCRINE: Denies any polyuria or polydipsia. Active Medications Generic Name Dose Route Start Last Admin Trade Name Freq PRN Reason Stop Dose Admin Aspirin 81 mg 07/21/19 09:00 07/24/19 12:13 Aspirin PO 81 mg DAILY PRIYA Administration Atorvastatin Calcium 80 mg 07/21/19 09:00 07/24/19 12:13 Lipitor PO 80 mg DAILY PRIYA Administration Famotidine 20 mg 07/23/19 09:00 07/24/19 12:13 Pepcid PO 20 mg DAILY PRIYA Administration Glipizide 5 mg 07/20/19 17:30 07/24/19 16:57 Glucotrol PO 5 mg AC-BID PRIYA Administration Dopamine HCl/Dextrose 800 mg/ 250 mls @ 8.114 mls/hr 07/20/19 15:00 07/24/19 10:48 IV Solution IV Not Given .Q24H PRIYA Protocol 3 MCG/KG/MIN Sodium Chloride 1,000 mls @ 20 mls/hr 07/22/19 03:30 07/24/19 06:32 Saline 0.9% IV 20 mls/hr .Q24H PRIYA Administration Insulin Aspart 0 unit 07/20/19 21:00 07/24/19 16:57 Novolog SQ 5 unit ACHS PRIYA Administration Protocol Insulin Detemir 5 unit 07/23/19 21:15 07/23/19 21:45 Levemir SQ 5 unit HS PRIYA Administration Losartan Potassium 50 mg 07/21/19 09:00 07/24/19 12:13 Cozaar PO 50 mg DAILY PRIYA Administration Midodrine 10 mg 07/22/19 07:30 07/24/19 16:54 Proamatine PO Not Given AC-BID PRIYA Ticagrelor 90 mg 07/21/19 09:00 07/24/19 12:13 Brilinta PO 90 mg BID PRIYA Administration Objective - Vital Signs Vital signs: Vital Signs Temp 98.9 F 07/24/19 12:00 Pulse 58 L 07/24/19 13:00 Resp 22 07/24/19 13:00 BP 123/49 07/24/19 13:00 Pulse Ox 98 07/24/19 13:00 Intake & Output 07/23/19 07/24/19 07/24/19 18:59 06:59 18:59 Intake Total 414.611 330 180 Output Total 645 565 385 Balance -230.389 -235 -205 Weight 142.2 kg Intake: IV 390 330 180 Sodium Chloride 0.9% 1, 260 220 120 000 ml @ 50 mls/hr IV . Q20H PRIYA Rx#:[id number] TVP 10 mL/hour .9 130 110 60 Intake, IV Titration 24.611 Amount DOPamine DRIP 800 mg In 24.611 Dextrose/Water 1 250ml. bag @ 3 MCG/KG/MIN 8.114 mls/hr IV .Q24H PRIYA Rx#: [id number] Output: Urine 645 565 385 Other: Voiding Method Indwelling Catheter Indwelling Catheter Indwelling Catheter # Bowel Movements 1 - Exam GENERAL: The patient is alert and oriented x3, not in any acute distress. Well developed, well nourished. HEENT: Pupils are round and equally reacting to light. EOMI. No scleral icterus. No conjunctival pallor. Normocephalic, atraumatic. No pharyngeal erythema. No thyromegaly. CARDIOVASCULAR: S1 and S2 present. No murmurs, rubs, or gallops. PULMONARY: Chest is clear to auscultation, no wheezing or crackles. ABDOMEN: Soft, nontender, nondistended, normoactive bowel sounds. No palpable organomegaly. MUSCULOSKELETAL: No joint swelling or deformity. EXTREMITIES: No cyanosis, clubbing, or pedal edema. NEUROLOGICAL: Gross neurological examination did not reveal any focal deficits. SKIN: No rashes. no petechiae. - Labs CBC & Chem 7: 07/24/19 04:56 07/24/19 04:56 Labs: Abnormal Lab Results - Last 24 Hours (Table) 07/23/19 07/23/19 07/23/19 Range/Units 13:27 16:30 20:15 RBC (4.30-5.90) m/uL Hgb (13.0-17.5) gm/dL Hct (39.0-53.0) % MCHC (31.0-37.0) g/dL Monocytes # (0-1.0) k/uL BUN (9-20) mg/dL Creatinine (0.66-1.25) mg/dL Glucose (74-99) mg/dL POC Glucose (mg/dL) 188 H 159 H 183 H (75-99) mg/dL 07/24/19 07/24/19 07/24/19 Range/Units 04:56 04:56 06:44 RBC 3.71 L (4.30-5.90) m/uL Hgb 10.9 L (13.0-17.5) gm/dL Hct 35.6 L (39.0-53.0) % MCHC 30.6 L (31.0-37.0) g/dL Monocytes # 1.2 H (0-1.0) k/uL BUN 44 H (9-20) mg/dL Creatinine 1.36 H (0.66-1.25) mg/dL Glucose 157 H (74-99) mg/dL POC Glucose (mg/dL) 156 H (75-99) mg/dL 07/24/19 Range/Units 11:45 RBC (4.30-5.90) m/uL Hgb (13.0-17.5) gm/dL Hct (39.0-53.0) % MCHC (31.0-37.0) g/dL Monocytes # (0-1.0) k/uL BUN (9-20) mg/dL Creatinine (0.66-1.25) mg/dL Glucose (74-99) mg/dL POC Glucose (mg/dL) 165 H (75-99) mg/dL Assessment and Plan Assessment: Acute inferior STEMI, status post emergent cardiac angiogram with PCI of the RCA Ischemic cardiomyopathy with ejection fraction 45-50% Sick sinus syndrome status post temporal pacemaker placement Mild leukocytosis, mostly reactive, no signs symptoms of infection Acute kidney injury versus chronic kidney disease Diabetes mellitus, with hyperglycemia Hypertension Plan: This is a pleasant 79 years old female who presents with acute STEMI. Status post cardiac cath and stent placement. Cardiology are following the case lena cabezas. Continue with dual antiplatelet therapy. Nepnhrology consult cardiology are following The case.Continue with insulin. Pacemaker per cardiology team. Labs and medication were reviewed.. Continue same treatment. Continue with symptomatic treatment. Resume home medication. Monitor lytes and vitals. DVT and GI prophylaxis. Further recommendations of the clinical course of the patient DVT prophylaxis: Dual antiplatelet therapy GI Prophylaxis: Pepcid
[2019-07-24 20:51] LABS: Glucose,Whole Blood 221 mg/dL (75-99)
[2019-07-24] MEDS: INSULIN DETEMIR (LEVEMIR) 100 UNIT/ML SYR SQ SCH (21:01)
[2019-07-25] MEDS: CALCIUM CARBONATE 500 MG CHEWABLE PO PRN (00:27)
[2019-07-25 05:08] LABS: HCT 38.4 % (39.0-53.0); HGB 11.8 gm/dL (13.0-17.5); Hypochromasia Slight; MCH 29.7 pg (25.0-35.0); MCHC 30.7 g/dL (31.0-37.0); MCV 96.7 fL (80.0-100.0); Mean Platelet Volume 9.7; Platelet Count 220 k/uL (150-450); RBC 3.97 m/uL (4.30-5.90); RDW 14.6 % (11.5-15.5); WBC 9.3 k/uL (3.8-10.6)
[2019-07-25 05:21] LABS: Calcium 8.7 mg/dL (8.4-10.2); Potassium 4.1 mmol/L (3.5-5.1)
[2019-07-25 06:16] LABS: Glucose,Whole Blood 172 mg/dL (75-99)
[2019-07-25] MEDS: SODIUM CHLORIDE 0.9% 1,000 ML IV SCH ×2 (06:16→07:02)
[2019-07-25] MEDS: MIDODRINE 5 MG TAB PO SCH ×2 (06:17→17:46)
[2019-07-25] MEDS ORDERED: CLINDAMYCIN 900 MG in DEXTROSE 5% IN WATER 50 ML IVPB ONE ×2 (06:31)
[2019-07-25] MEDS ORDERED: CLINDAMYCIN 600 MG in SODIUM CHLORIDE 0.9% IRRIGATIO 250 ML IRRIGATION ONE ×2 (06:31→07:48)
[2019-07-25] MEDS ORDERED: SODIUM CHLORIDE 0.9% 1,000 ML IV SCH ×3 (06:45→08:00)
[2019-07-25] MEDS ORDERED: SODIUM CHLORIDE 0.9% 500 ML 500 ML IV ONE (07:17)
[2019-07-25] MEDS: INSULIN ASPART (NovoLOG) 100 UNIT/ML VIAL SQ SCH ×4 (07:28→20:28)
[2019-07-25] MEDS: glipiZIDE 5 MG TAB PO SCH ×3 (07:28→16:57)
[2019-07-25] MEDS ORDERED: IOPAMIDOL-250 50ML BTL IV ONE (07:37)
[2019-07-25] MEDS ORDERED: LIDOCAINE 1% INJ 10MG/ML (20 ML MDV) ONE ×2 (07:57)
[2019-07-25] MEDS ORDERED: fentaNYL (PF) 50 MCG/ML 2 ML AMP ONE (08:00)
[2019-07-25] MEDS ORDERED: fentaNYL (PF) 50 MCG/ML 2 ML AMP IV ONE (08:05)
[2019-07-25] MEDS ORDERED: MIDAZOLAM 2 MG/2 ML VIAL IV ONE (08:05)
[2019-07-25] MEDS ORDERED: LIDOCAINE 1% INJ 10MG/ML (20 ML MDV) SQ ONE (08:10)
[2019-07-25] MEDS ORDERED: HYDROcodone/APAP 5-325MG 1 EACH TAB PO PRN (09:11)
[2019-07-25] MEDS ORDERED: ACETAMINOPHEN TAB 325 MG TAB PO PRN (09:11)
--- NOTE | 2019-07-25 09:20 | P.PCN ---
Date of Procedure: 07/25/19 Preoperative Diagnosis: Sick sinus syndrome with pauses up to 16 seconds and severe bradycardia Postoperative Diagnosis: The same Procedure(s) Performed: Axillary venography, dual-chamber pacemaker insertion Description of Procedure: HISTORY: This is a 79-year-old gentleman who was admitted to the hospital with inferior wall myocardial infarction and had stent placement of the RCA. Patient developed significant bradycardia. His of asystole lasting about 16 seconds. Patient was treated with dopamine and had a temporary pacemaker for 3 days without improvement. Patient is advised to have permanent pacemaker insertion. CONSENT:I have discussed the risks, benefits and alternative therapies for the above-mentioned procedure and for both sedation/analgesia as well as necessary blood product administration, if indicated, as they pertain to this patient. The patient has indicated understanding and acceptance of the risks and procedures discussed. PROCEDURE: Patient was brought to the lab in a fasting state. Patient was prepped and draped in the usual fashion. Patient was given IV sedation with fentanyl and Versed. The skin below the left clavicle was infiltrated with lidocaine. An incision was made parallel to deltopectoral groove was deepened until the pectoral fascia was exposed. A pocket was created by blunt dissection and cautery. Axillary venography was performed to delineate the course of the a xillary vein. 2 sticks were performed into extrathoracic portion of the axillary vein and 2 sheaths were advanced over the guidewires and left in subclavian vein. Conscious Sedation: Versed 1mg Fentanyl 50 g Duration 61minutes LEADS: ATRIAL: This is manufactured by [employer]. Model number is 5076-52. Serial number is [id number] VENTRICULAR: This is manufactured by [employer]. Model number is 5076-58 . Serial number is [id number]. The device: This is manufactured by [employer]. Model number is [id number] and the serial number is [id number] The ventricular lead is maneuvered l with help of a straight and curved stylets into the left ventricle apical region. Satisfactory position was obtained and threshold measurements were made. The atrial lead was then maneuvered into the right atrial appendage. And thresholds were obtained. THRESHOLDS: ATRIUM: The minimum patient threshold was about 1.6 at pulse width of 0.5 with impedance of 711. P-wave: 2.9 VENTRICLE:. The minimum patient threshold is 0.8 at a pulse width of 0.5 with impedance of 949 R-wave: 14.2 The leads and pulse generator remained in the pocket after it was washed with antibiotics. Pocket was closed in the usual fashion. The fascia was closed with 2-0 Prolene ,the subcutaneous tissue was closed with 3-0 Prolene and the skin was closed with 4-0 Prolene. PROGRAMMING: MODE: AAIR with mode switch to DDDR RATE: 60 to 130 OUTPUT: Atrium: 3.5 Ventricle: 3.5 FINAL IMPRESSION: Successful implantation of dual-chamber pacemaker. Axillary venography COMPLICATIONS: None PLAN: Continue prophylactic antibiotics. Chest x-ray in the morning. Increase activity from tomorrow
[2019-07-25] MEDS: FAMOTIDINE 20 MG TAB PO SCH ×2 (10:11→20:22)
[2019-07-25] MEDS: TICAGRELOR 90 MG TAB PO SCH ×2 (10:11→20:22)
[2019-07-25] MEDS: ATORVASTATIN 80 MG TAB PO SCH (10:11)
[2019-07-25] MEDS: ASPIRIN 81 MG PO SCH (10:12)
[2019-07-25] MEDS: LOSARTAN 50 MG TAB PO SCH (10:12)
--- NOTE | 2019-07-25 11:38 | ECHOF ---
Referral Reason:Chest pain and cardiomyopathy MEASUREMENTS -------- HEIGHT: 182.9 cm WEIGHT: 142.9 kg BP: 94/76 RVIDd: 3.3 cm (< 3.3) IVSd: 1.6 cm (0.6 - 1.1) LVIDd: 5.5 cm (3.9 - 5.3) LVPWd: 1.6 cm (0.6 - 1.1) IVSs: 1.9 cm LVIDs: 5.2 cm LVPWs: 2.2 cm LA Diam: 3.9 cm (2.7 - 3.8) LAESV Index (A-L): 28.76 ml/m Ao Diam: 3.8 cm (2.0 - 3.7) AV Cusp: 2.1 cm (1.5 - 2.6) MV EXCURSION: 10.542 mm (> 18.000) MV EF SLOPE: 36 mm/s (70 - 150) EPSS: 1.2 cm RAP: 5.00 mmHg RVSP: 55.58 mmHg FINDINGS -------- Resting bradycardia (HR<60bpm). This was a technically difficult study with suboptimal views. The left ventricular size is normal. There is moderate concentric left ventricular hypertrophy. O verall left ventricular systolic function is mildly impaired with, an EF between 45 - 50 %. Basal p osterior LV wall motion is hypokinetic. Basal inferior LV wall motion is hypokinetic. Basal inf eroseptal LV wall motion is hypokinetic. Mid posterior LV wall motion is hypokinetic. Mid infer ior LV wall motion is hypokinetic. The right ventricle is mildly enlarged. LA is midly dilated 29-33ml/m2. The right atrium is normal in size. 5.0mg of Lumason was utilized for enhancement of images Interatrial and interventricular septum intact. There is mild aortic valve sclerosis. There is trace to mild mitral regurgitation. Mild tricuspid regurgitation present. There is moderate to severe pulmonary hypertension. The rig ht ventricular systolic pressure, as measured by Doppler, is 55.58mmHg. Trace/mild (physiologic) pulmonic regurgitation. The aortic root is dilated measuring 3.8cm. Normal inferior vena cava with normal inspiratory collapse consistent with estimated right atrial pre ssure of 5 mmHg. The inferior vena cava is mildly dilated. There is no pericardial effusion. CONCLUSIONS -------- 1. Resting bradycardia (HR<60bpm). 2. This was a technically difficult study with suboptimal views. 3. The left ventricular size is normal. 4. There is moderate concentric left ventricular hypertrophy. 5. Overall left ventricular systolic function is mildly impaired with, an EF between 45 - 50 %. 6. Basal posterior LV wall motion is hypokinetic. 7. Basal inferior LV wall motion is hypokinetic. 8. Basal inferoseptal LV wall motion is hypokinetic. 9. Mid posterior LV wall motion is hypokinetic. 10. Mid inferior LV wall motion is hypokinetic. 11. The right ventricle is mildly enlarged. 12. LA is midly dilated 29-33ml/m2. 13. The right atrium is normal in size. 14. 5.0mg of Lumason was utilized for enhancement of images 15. Interatrial and interventricular septum intact. 16. There is mild aortic valve sclerosis. 17. There is trace to mild mitral regurgitation. 18. Mild tricuspid regurgitation present. 19. There is moderate to severe pulmonary hypertension. 20. The right ventricular systolic pressure, as measured by Doppler, is 55.58mmHg. 21. Trace/mild (physiologic) pulmonic regurgitation. 22. The aortic root is dilated measuring 3.8cm. 23. Normal inferior vena cava with normal inspiratory collapse consistent with estimated right atrial pressure of 5 mmHg. 24. The inferior vena cava is mildly dilated. 25. There is no pericardial effusion. ASSISTANT FINANCIAL ACCOUNTANT: Rosemarie Clark RDCS
[2019-07-25 11:49] LABS: Glucose,Whole Blood 219 mg/dL (75-99)
--- NOTE | 2019-07-25 12:20 | P.PN ---
Subjective This is a pleasant 79 years old female with past medical history of diabetes mellitus, hypertension. She was transferred from [facility] chest pain. Patient presents with central chest pain, of daily duration of the left side radiating to the neck about 4/10 in severity, associated with little dyspnea, nausea and coughing. No vomiting. No change in urine or bowel habits EKG changes showing ST elevation in inferior leads. Patient has been evaluated by director surgical and underwent emergent cardiac angiogram, and found to have 80% blockage of the right coronary artery, patient underwent difficult PCI with 3 stent placed in the right coronary artery, during the procedure patient became transiently hypotensive and needed dopamine for short period. Postprocedure patient stabilized and transferred to the ICU for further monitoring and treatment Currently vitals are stable. 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 No chest pain or dyspnea. Milking Machine Operator following the case closely, losartan. And medial drain was admitted, currently blood pressure 127/53 with heart rate is 50s, WBC 14.4 K, creatinine 1.3 and stable, glucose controlled less than 200 possible patient will need permanent pacemaker and down the root 07/23/2019 Patient remains to the ICU for close monitoring of his heart rate monitoring. He is fully awake and oriented, no chest pain or dyspnea. He feels generally weak. Vital signs stable, heart rate is 49-52, blood pressure 117/58, temporal pacemaker is in place. Labs reviewed showed creatinine 1.5, WBC 14 K, glucose 166-230. Hemoglobin A1c is 8.9, he wasn't glyburide 5 mg twice a day, metformin 500 mg was added, he going to increase the dose to 850 twice a day Cardiology team R following the patient closely and he might need permanent pacemaker depending on his progress and stability We will check TSH 07/24/2019 Patient lying in bed, no symptoms reported other than generalized weakness. No chest pain. No dyspnea. No dizziness Well Service Derrick Worker team appointment for permanent pacemaker placement tomorrow Losartan was started. Patient is on aspirin and Brillinta, Hemoglobin A1c 8.9, patient is on glyburide, metformin is on hold. Place the patient on Levemir 5 units at bedtime 07/25/2019 Patient lives in bed sleepy after the procedure today, his status post permanent pacemaker today. Vitas looks stable. Patient could not provide information now Heart rate 60, rest of vitals are stable. Sugar slightly elevated above 200, he is already on Levemir 5 units will increase it to 7 units and we'll keep monitoring. Labs a stable. He remains on aspirin and Brilinta. Review of systems n/a, patient could not provide information Objective - Vital Signs Vital signs: Vital Signs Temp 98.2 F 07/25/19 12:00 Pulse 60 07/25/19 12:00 Resp 15 07/25/19 12:00 BP 140/60 07/25/19 12:00 Pulse Ox 93 L 07/25/19 12:00 Intake & Output 07/24/19 07/25/19 07/25/19 18:59 06:59 18:59 Intake Total 720 360 190 Output Total 665 685 305 Balance 55 -325 -115 Weight 142.8 kg Intake: IV 360 360 190 0.9 10 Sodium Chloride 0.9% 1, 240 240 20 000 ml @ 50 mls/hr IV . Q20H [facility] Rx#:[id number] TVP 10 mL/hour .9 120 120 10 Oral 360 Output: Urine 665 685 305 Other: Voiding Method Indwelling Catheter Indwelling Catheter # Bowel Movements 1 - Exam GENERAL: The patient is alert and oriented x3, not in any acute distress. Well developed, well nourished. HEENT: Pupils are round and equally reacting to light. EOMI. No scleral icterus. No conjunctival pallor. Normocephalic, atraumatic. No pharyngeal erythema. No thyromegaly. CARDIOVASCULAR: S1 and S2 present. No murmurs, rubs, or gallops. PULMONARY: Chest is clear to auscultation, no wheezing or crackles. ABDOMEN: Soft, nontender, nondistended, normoactive bowel sounds. No palpable organomegaly. MUSCULOSKELETAL: No joint swelling or deformity. EXTREMITIES: No cyanosis, clubbing, or pedal edema. NEUROLOGICAL: Gross neurological examination did not reveal any focal deficits. SKIN: No rashes. no petechiae. - Labs CBC & Chem 7: 07/25/19 04:49 07/25/19 04:49 Labs: Abnormal Lab Results - Last 24 Hours (Table) 07/24/19 07/24/19 07/25/19 Range/Units 16:45 20:50 04:49 RBC (4.30-5.90) m/uL Hgb (13.0-17.5) gm/dL Hct (39.0-53.0) % MCHC (31.0-37.0) g/dL Chloride 110 H (98-107) mmol/L BUN 37 H (9-20) mg/dL Glucose 168 H (74-99) mg/dL POC Glucose (mg/dL) 248 H 221 H (75-99) mg/dL 07/25/19 07/25/19 07/25/19 Range/Units 04:49 06:13 11:47 RBC 3.97 L (4.30-5.90) m/uL Hgb 11.8 L (13.0-17.5) gm/dL Hct 38.4 L (39.0-53.0) % MCHC 30.7 L (31.0-37.0) g/dL Chloride (98-107) mmol/L BUN (9-20) mg/dL Glucose (74-99) mg/dL POC Glucose (mg/dL) 172 H 219 H (75-99) mg/dL Assessment and Plan Assessment: Acute inferior STEMI, status post emergent cardiac angiogram with PCI of the RCA Ischemic cardiomyopathy with ejection fraction 45-50% Sick sinus syndrome status post permanent pacemaker placement Mild leukocytosis, mostly reactive, no signs symptoms of infection. Thresholds Acute kidney injury versus chronic kidney disease, resolved Diabetes mellitus, with hyperglycemia Hypertension Plan: This is a pleasant 79 years old female who presents with acute STEMI. Status post cardiac cath and stent placement. Cardiology are following the case closely. Continue with dual antiplatelet therapy. Nepnhrology consult cardiology are following The case.Continue with insulin. Pacemaker per cardiology team. Labs and medication were reviewed.. Continue same treatment. Continue with symptomatic treatment. Resume home medication. Monitor lytes and vitals. DVT and GI prophylaxis. Further recommendations of the clinical course of the patient DVT prophylaxis: Dual antiplatelet therapy GI Prophylaxis: Pepcid
[2019-07-25] MEDS ORDERED: INSULIN DETEMIR (LEVEMIR) 100 UNIT/ML SYR SQ ONE (13:00)
[2019-07-25] MEDS: CLINDAMYCIN 900 MG in DEXTROSE 5% IN WATER 50 ML IVPB SCH ×4 (13:08→20:21)
--- NOTE | 2019-07-25 15:40 | PN ---
PROGRESS NOTE Patient is seen for followup for acute kidney injury. He is currently doing much better. Patient is status post pacemaker placement, this morning. He is resting comfortably. No chest pains. No other complaints. Urine output is maintained at 60- 80 mL/hour. Serum creatinine is down to 1.2 mg/dL. PHYSICAL EXAMINATION: Today, patient is comfortable, awake, alert, oriented x3, not in any acute distress. Blood pressure was 119/55, heart rate of 60 per minute, he is afebrile. Examination of the heart S1, S2. Examination of the lungs, bilateral breath sounds are heard. Abdomen is soft, nontender. Examination of the lower extremities shows chronic skin changes. Trace edema noted. DYSLEXIA TEACHER exam grossly intact. LABS: Show sodium 142, potassium 4.1, chloride 110, CO2 is 27, BUN 37, creatinine 1.21, hemoglobin 11.8 g/dL. ASSESSMENT: 1. Acute kidney injury, associated with hypotension, hypoperfusion, an element of acute tubular necrosis, currently significantly improved. 2. Bradycardia, associated with inferior wall myocardial infarction, status post pacemaker placement. 3. Hypotension associated with inferior wall myocardial infarction, currently resolved. 4. Status post ST elevation myocardial infarction, inferior wall, status post RCA stenting. 5. Chronic kidney disease stage III. Baseline creatinine 1.3-1.2 mg/dL in 2015, etiology nephrosclerosis. 6. Hypertension, blood pressure had been low. Therefore, antihypertensive medications including Cozaar was on hold. Currently blood pressure is much improved. The patient is back on Cozaar which is appropriate. PLAN: Continue current medications. Avoid hypotension. Repeat labs in a.m. MMODL / IJN: [id number] /
[2019-07-25] MEDS: DOPamine DRIP 800 MG in DEXTROSE/WATER 1 250ML.BAG IV SCH (16:01)
[2019-07-25 16:35] LABS: Glucose,Whole Blood 226 mg/dL (75-99)
[2019-07-25 20:26] LABS: Glucose,Whole Blood 248 mg/dL (75-99)
[2019-07-25] MEDS ORDERED: INSULIN DETEMIR (LEVEMIR) 100 UNIT/ML SYR SQ SCH ×2 (21:00)
[2019-07-26] MEDS: CLINDAMYCIN 900 MG in DEXTROSE 5% IN WATER 50 ML IVPB SCH ×4 (02:25→09:29)
[2019-07-26] MEDS: SODIUM CHLORIDE 0.9% 1,000 ML IV SCH (02:27)
[2019-07-26 06:19] LABS: Calcium 8.5 mg/dL (8.4-10.2); Potassium 4.4 mmol/L (3.5-5.1)
[2019-07-26 06:53] LABS: Glucose,Whole Blood 171 mg/dL (75-99)
[2019-07-26] MEDS: MIDODRINE 5 MG TAB PO SCH ×2 (07:10→16:36)
[2019-07-26] MEDS: INSULIN ASPART (NovoLOG) 100 UNIT/ML VIAL SQ SCH ×4 (07:13→20:49)
[2019-07-26] MEDS: glipiZIDE 5 MG TAB PO SCH ×2 (07:13→16:41)
--- NOTE | 2019-07-26 08:17 | XR ---
EXAMINATION TYPE: XR chest 2V DATE OF EXAM: 07/26/2019 COMPARISON: 07/22/2019 INDICATION: Lead placement check TECHNIQUE: Frontal and lateral views of the chest are obtained. FINDINGS: The heart size is moderately prominent. The pulmonary vasculature is normal. There is some mild left lower lobe retrocardiac infiltrate. Atelectasis and pneumonia should be consi dered. Pacemaker overlies left chest. IMPRESSION: 1. Mild developing left lower lobe infiltrate
[2019-07-26] MEDS: ATORVASTATIN 80 MG TAB PO SCH (09:31)
[2019-07-26] MEDS: FAMOTIDINE 20 MG TAB PO SCH ×2 (09:31→20:49)
[2019-07-26] MEDS: ASPIRIN 81 MG PO SCH (09:31)
[2019-07-26] MEDS: TICAGRELOR 90 MG TAB PO SCH ×2 (09:31→20:49)
[2019-07-26] MEDS: LOSARTAN 50 MG TAB PO SCH (09:31)
--- NOTE | 2019-07-26 10:30 | P.PN ---
Subjective This is a pleasant 79 years old female with past medical history of diabetes mellitus, hypertension. She was transferred from [facility] chest pain. Patient presents with central chest pain, of daily duration of the left side radiating to the neck about 4/10 in severity, associated with little dyspnea, nausea and coughing. No vomiting. No change in urine or bowel habits EKG changes showing ST elevation in inferior leads. Patient has been evaluated by mid level java developer and underwent emergent cardiac angiogram, and found to have 80% blockage of the right coronary artery, patient underwent difficult PCI with 3 stent placed in the right coronary artery, during the procedure patient became transiently hypotensive and needed dopamine for short period. Postprocedure patient stabilized and transferred to the ICU for further monitoring and treatment Currently vitals are stable. Labs showed leukocytosis of 11.2 K, creatinine is elevated 1.4, glucose high at 215-303 Currently patient is on normal saline 75 mL/h, glipizide 5 mg twice a day, aspirin and Brilinta, metoprolol 12.5 mg 07/22/2019 Patient remains in the ICU, his heart rate dropped to 20s overnight with low blood pressure, found to have tachycardia bradycardia syndrome with long pauses mid level java developer placed temporal pacemaker, he is awake and oriented in the ICU. No chest pain or dyspnea. Indian Blanket Weaver following the case closely, losartan. And medial drain was admitted, currently blood pressure 127/53 with heart rate is 50s, WBC 14.4 K, creatinine 1.3 and stable, glucose controlled less than 200 possible patient will need permanent pacemaker and down the root 07/23/2019 Patient remains to the ICU for close monitoring of his heart rate monitoring. He is fully awake and oriented, no chest pain or dyspnea. He feels generally weak. Vital signs stable, heart rate is 49-52, blood pressure 117/58, temporal pacemaker is in place. Labs reviewed showed creatinine 1.5, WBC 14 K, glucose 166-230. Hemoglobin A1c is 8.9, he wasn't glyburide 5 mg twice a day, metformin 500 mg was added, he going to increase the dose to 850 twice a day Cardiology team R following the patient closely and he might need permanent pacemaker depending on his progress and stability We will check TSH 07/24/2019 Patient lying in bed, no symptoms reported other than generalized weakness. No chest pain. No dyspnea. No dizziness Business Process Analyst team appointment for permanent pacemaker placement tomorrow Losartan was started. Patient is on aspirin and Brillinta, Hemoglobin A1c 8.9, patient is on glyburide, metformin is on hold. Place the patient on Levemir 5 units at bedtime 07/25/2019 Patient lives in bed sleepy after the procedure today, his status post permanent pacemaker today. Vitas looks stable. Patient could not provide information now Heart rate 60, rest of vitals are stable. Sugar slightly elevated above 200, he is already on Levemir 5 units will increase it to 7 units and we'll keep monitoring. Labs a stable. He remains on aspirin and Brilinta. 07/26/2019 Patient remains in the ICU. Patient is status post permanent pacemaker yesterday. Today is postprocedure day #1. Pacemaker interrogation was uneventful as per staff at bedside.Heart rate is 60-66, breathing rate 22, blood pressure 129/45 Patient himself has no chest pain or dyspnea, he complains from generalized weakness. TSH 4.1. WBCs back to normal 9.3K. Hemoglobin is 11.8. BMP is unre markable. Sugar control. Chest x-ray showing developing left lower lobe infiltrate Patient currently on normal sinus 50 mL/h and clindamycin per cardiology for postprocedure care which is stopped nowOn discharge, the patient has been prescribed We going to continue the patient on clindamycin. Consent for sputum culture Review of systems CONSTITUTIONAL: No fever, no malaise, no fatigue. HEENT: No recent visual problems or hearing problems. Denied any sore throat. NEUROLOGICAL: No headaches, no weakness, no numbness. HEMATOLOGICAL: Denies any bleeding or petechiae. GENITOURINARY: Denies any burning micturition, frequency, or urgency. MUSCULOSKELETAL/RHEUMATOLOGICAL: Denies any joint pain, swelling, or any muscle pain. ENDOCRINE: Denies any polyuria or polydipsia. Active Medications Generic Name Dose Route Start Last Admin Trade Name Freq PRN Reason Stop Dose Admin Acetaminophen 650 mg 07/25/19 09:11 Tylenol Tab PO Q6HR PRN Mild Pain Hydrocodone Bitart/Acetaminophen 1 each 07/25/19 09:11 [place] 5-325 PO Q4HR PRN Pain Aspirin 81 mg 07/21/19 09:00 07/26/19 09:31 Aspirin PO 81 mg DAILY PRIYA Administration Atorvastatin Calcium 80 mg 05/16/20 09:00 07/26/19 09:31 Lipitor PO 80 mg DAILY PRIYA Administration Calcium Carbonate/Glycine 500 mg 07/24/19 23:58 07/25/19 00:27 Tums PO 500 mg QID PRN Administration Heartburn Famotidine 20 mg 07/25/19 21:00 07/26/19 09:31 Pepcid PO 20 mg BID PRIYA Administration Glipizide 5 mg 07/20/19 17:30 07/26/19 07:13 Glucotrol PO 5 mg AC-BID PRIYA Administration Sodium Chloride 1,000 mls @ 50 mls/hr 07/25/19 06:45 07/26/19 02:27 Saline 0.9% IV 50 mls/hr .Q20H PRIYA Administration Insulin Aspart 0 unit 07/20/19 21:00 07/26/19 07:13 Novolog SQ 2 unit ACHS PRIYA Administration Protocol Insulin Detemir 10 unit 07/25/19 21:00 07/25/19 20:29 Levemir SQ 10 unit HS PRIYA Administration Losartan Potassium 50 mg 07/21/19 09:00 07/26/19 09:31 Cozaar PO 50 mg DAILY PRIYA Administration Midodrine 10 mg 07/22/19 07:30 07/26/19 07:10 Proamatine PO Not Given AC-BID PRIYA Sodium Chloride 10 ml 07/25/19 21:00 07/26/19 09:31 Saline Flush IV 10 ml Q12HR PRIYA Administration Ticagrelor 90 mg 07/21/19 09:00 07/26/19 09:31 Brilinta PO 90 mg BID PRIYA Administration Objective - Vital Signs Vital signs: Vital Signs Temp 98 F 07/26/19 04:00 Pulse 60 07/26/19 08:00 Resp 22 07/26/19 08:00 BP 129/45 07/26/19 08:00 Pulse Ox 92 L 07/26/19 09:59 Intake & Output 07/25/19 07/26/19 07/26/19 18:59 06:59 18:59 Intake Total 290 80 370 Output Total 555 725 250 Balance -265 -645 120 Weight 141.6 kg Intake: IV 290 80 70 0.9 60 30 20 Clindamycin 900 mg In 50 50 50 Dextrose 5% in Water 50 ml @ 50 mls/hr IVPB Q6H PRIYA Rx#:[id number] Sodium Chloride 0.9% 1, 20 000 ml @ 50 mls/hr IV . Q20H PRIYA Rx#:[id number] TVP 10 mL/hour .9 10 Oral 300 Output: Urine 555 725 250 Other: Voiding Method Indwelling Catheter Indwelling Catheter Indwelling Catheter - Exam GENERAL: The patient is alert and oriented x3, not in any acute distress. Well developed, well nourished. HEENT: Pupils are round and equally reacting to light. EOMI. No scleral icterus. No conjunctival pallor. Normocephalic, atraumatic. No pharyngeal erythema. No thyromegaly. CARDIOVASCULAR: S1 and S2 present. No murmurs, rubs, or gallops. PULMONARY: Chest is clear to auscultation, no wheezing or crackles. ABDOMEN: Soft, nontender, nondistended, normoactive bowel sounds. No palpable organomegaly. MUSCULOSKELETAL: No joint swelling or deformity. EXTREMITIES: No cyanosis, clubbing, or pedal edema. NEUROLOGICAL: Gross neurological examination did not reveal any focal deficits. SKIN: No rashes. no petechiae. - Labs CBC & Chem 7: 07/25/19 04:49 07/26/19 04:39 Labs: Abnormal Lab Results - Last 24 Hours (Table) 07/25/19 07/25/19 07/25/19 Range/Units 11:47 16:33 20:24 Chloride (98-107) mmol/L BUN (9-20) mg/dL Glucose (74-99) mg/dL POC Glucose (mg/dL) 219 H 226 H 248 H (75-99) mg/dL 07/26/19 07/26/19 Range/Units 04:39 06:51 Chloride 111 H (98-107) mmol/L BUN 30 H (9-20) mg/dL Glucose 159 H (74-99) mg/dL POC Glucose (mg/dL) 171 H (75-99) mg/dL Assessment and Plan Assessment: Acute inferior STEMI, status post emergent cardiac angiogram with PCI of the RCA Ischemic cardiomyopathy with ejection fraction 45-50% Sick sinus syndrome status post permanent pacemaker placement Mucous lung pneumonia Acute kidney injury versus chronic kidney disease, resolved Diabetes mellitus, with hyperglycemia Hypertension Plan: This is a pleasant 79 years old female who presents with acute STEMI. Status post cardiac cath and stent placement. Cardiology are following the case closely. Continue with dual antiplatelet therapy. Nepnhrology consult cardiology are following The case.Continue with insulin. Pacemaker per cardiology team. Continue with clindamycin. Sputum culture se nsitivity. Swallow evaluation Labs and medication were reviewed.. Continue same treatment. Continue with symptomatic treatment. Resume home medication. Monitor lytes and vitals. DVT and GI prophylaxis. Further recommendations of the clinical course of the patient DVT prophylaxis: Dual antiplatelet therapy GI Prophylaxis: Pepcid
[2019-07-26 11:36] LABS: Glucose,Whole Blood 206 mg/dL (75-99)
[2019-07-26] MEDS: FUROSEMIDE 20 MG TAB PO SCH (11:38)
--- NOTE | 2019-07-26 12:20 | PN ---
PROGRESS NOTE Patient is seen for followup for acute kidney injury. Renal function has improved significantly. Patient is status post pacemaker placement for bradycardia following inferior wall VT. He has good urine output, currently with an indwelling Hidalgo catheter. Patient denies any chest pains or shortness of breath. PHYSICAL EXAMINATION: On examination today, blood pressure was 129/45, heart rate 60 per minute, he is afebrile. Examination of the heart. S1, S2. Examination of lungs decreased breath sounds at bases. Abdomen is soft, nontender. Examination of the lower extremities shows chronic skin changes, edema. 1+ bilaterally. 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 LAB: 1. Shows sodium 142, potassium 4.4, chloride 111, CO2 is 25, BUN 30, creatinine 1.08. ASSESSMENT: 1. Acute kidney injury associated with hypotension hypoperfusion and an element of contrast nephropathy, currently improved. 2. Hypotension. now resolved. 3. Hypertension, back on the angiotensin receptor blockers at a lower dose, tolerating well. 4. Status post ST elevation VT, which was inferior wall VT status post cardiac cath and right coronary artery stenting. 5. Bradycardia status post pacemaker placement. 6. Chronic kidney disease NKF stage III previous creatinine 1.2 in 2015. Etiology is nephrosclerosis and element of diabetic kidney disease as patient does have 1+ proteinuria. PLAN: Discontinue IV fluids, encourage increased oral intake and we may need to resume low- dose loop diuretics upon discharge. Patient was on 20 mg of Lasix p.o. daily at home. We can start that from tomorrow. MMODL / IJN: [id number] /
[2019-07-26 13:28] VITALS: BMI 42.3
[2019-07-26 16:31] LABS: Glucose,Whole Blood 228 mg/dL (75-99)
[2019-07-26] MEDS: CLINDAMYCIN 300 MG in DEXTROSE 5% IN WATER 50 ML IVPB SCH ×4 (16:41→23:45)
--- NOTE | 2019-07-26 19:08 | PN ---
PROGRESS NOTE Israel is an 79-year-old gentleman who is admitted to hospital with acute inferior wall myocardial infarction underwent cardiac catheterization that revealed an 80% proximal right coronary artery stenosis and had significant disease in the diagonal branch. He underwent angioplasty of the same with stent placement. In his post AR recovery phase, he developed sinus pauses, went on to have a permanent pacemaker. An echocardiogram showed an ejection fraction of 45% with hypokinesis involving inferior wall. The patient underwent permanent pacemaker yesterday. He is doing well. The chest x-ray was unremarkable. Pacemaker is functioning normally. EXAM: Rate is 60 beats per minute blood pressure is 138/58, respiratory rate 18. Chest exam reveals diminished air entry at the bases. Heart exam reveals first and second heart sounds and a systolic murmur at the left lower sternal border. ABDOMEN: Soft. Exam of extremities did not reveal any edema. Peripheral pulses are felt. LABS: Show a potassium of 4.4, creatinine is 1.1, hemoglobin is 11.8, platelet count is 220. CURRENT MEDICATIONS: Include aspirin, Lipitor, Lasix, Glucotrol, Brilinta, Cozaar, Cozaar, and I am adding Toprol today. ASSESSMENT: 1. Acute inferior wall myocardial infarction status post catheterization and angioplasty of right coronary artery. 2. High-grade AV block status post permanent pacemaker. PLAN: Patient is doing well. He will be discharged home tomorrow. MMODL / IJN: [id number] /
[2019-07-26] MEDS: metFORMIN 500 MG TAB PO SCH (20:00)
[2019-07-26 20:44] LABS: Glucose,Whole Blood 267 mg/dL (75-99)
[2019-07-27] MEDS: CALCIUM CARBONATE 500 MG CHEWABLE PO PRN (00:02)
[2019-07-27 05:58] LABS: Glucose,Whole Blood 211 mg/dL (75-99)
[2019-07-27] MEDS: MIDODRINE 5 MG TAB PO SCH ×2 (06:23→17:22)
[2019-07-27] MEDS: INSULIN ASPART (NovoLOG) 100 UNIT/ML VIAL SQ SCH ×4 (06:24→20:54)
[2019-07-27] MEDS: glipiZIDE 5 MG TAB PO SCH ×2 (06:24→17:32)
[2019-07-27] MEDS: metFORMIN 500 MG TAB PO SCH ×2 (06:24→17:31)
[2019-07-27] MEDS: ATORVASTATIN 80 MG TAB PO SCH (09:38)
[2019-07-27] MEDS: FUROSEMIDE 20 MG TAB PO SCH (09:38)
[2019-07-27] MEDS: LOSARTAN 50 MG TAB PO SCH (09:38)
[2019-07-27] MEDS: ASPIRIN 81 MG PO SCH (09:38)
[2019-07-27] MEDS: FAMOTIDINE 20 MG TAB PO SCH ×2 (09:38→20:54)
[2019-07-27] MEDS: METOPROLOL SUCCINATE (ER) 25 MG TAB.ER.24H PO SCH (09:38)
[2019-07-27] MEDS: TICAGRELOR 90 MG TAB PO SCH ×2 (09:39→20:54)
[2019-07-27] MEDS: CLINDAMYCIN 300 MG in DEXTROSE 5% IN WATER 50 ML IVPB SCH ×2 (09:54)
--- NOTE | 2019-07-27 10:51 | XR ---
EXAMINATION TYPE: XR chest 1V DATE OF EXAM: 07/27/2019 COMPARISON: 07/26/2019 HISTORY: Lead placement check, follow-up exam TECHNIQUE: Single frontal view of the chest is obtained. FINDINGS: Dual lead left-sided cardiac device is seen with enlarged cardiac mediastinal silhouette. There is improved visualization of the right medial lower lobe with prominent epicardial fat pad. Min imal pulmonary vascular congestion. Lung apices are partially obstructed by the patient's chin. Moder ate degenerative change of the spine. No acute osseous process. IMPRESSION: Minimal pulmonary vascular congestion and improving right basilar opacity.
[2019-07-27 11:48] LABS: Glucose,Whole Blood 205 mg/dL (75-99)
--- NOTE | 2019-07-27 12:11 | PN ---
PROGRESS NOTE Patient is seen for followup for acute kidney injury, associated with hypotension and acute IN with an element of contrast nephropathy as well. Renal function has improved significantly. No labs noted today. Serum creatinine was 1.08 yesterday. Patient is currently comfortable, awake he is not in any acute distress. Blood pressure was 139/100, heart rate 58 per minute. He is afebrile. Examination shows chronic lower extremity changes with 1+ edema which is stable. Abdomen is soft, obese, nontender. Patient's arm remains in a sling from his recent pacemaker placement. 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 LABS: From 07/26/2019 shows sodium 142, potassium 4.4, BUN 30, serum creatinine 1.08. ASSESSMENT: 1. Acute kidney injury, ischemic, ATN with a component of possible contrast nephropathy, currently significantly improved. Patient is maintained on low-dose angiotensin receptor blockers and tolerating it well. 2. Chronic kidney disease stage III previous creatinine 1.2 in 2014, secondary to nephrosclerosis and diabetic kidney disease. 1+ proteinuria noted on UA. 3. Bradycardia from inferior wall myocardial infarction, status post pacemaker placement. 4. Status post ST-elevation IN, which was inferior wall IN, status post cardiac cath and right coronary artery stenting. PLAN: Continue with the Cozaar. Mcgill to use Glucophage and continue with oral Lasix at 20 mg daily. MMODL / IJN: [id number] /
[2019-07-27 12:44] LABS: Basophils # (A) 0.1 k/uL (0-0.2); Basophils % (A) 1 %; Eosinophils # (A) 0.3 k/uL (0-0.7); Eosinophils % (A) 4 %; HCT 36.6 % (39.0-53.0); HGB 11.4 gm/dL (13.0-17.5); Hypochromasia Moderate; Lymphocytes # (A) 1.7 k/uL (1.0-4.8); Lymphocytes % (A) 20 %; MCH 30.4 pg (25.0-35.0); MCHC 31.3 g/dL (31.0-37.0); MCV 97.2 fL (80.0-100.0); Mean Platelet Volume 9.5; Monocytes # (A) 0.9 k/uL (0-1.0); Monocytes % (A) 11 %; Neutrophils # (A) 5.2 k/uL (1.3-7.7); Neutrophils % (A) 62 %; Platelet Count 251 k/uL (150-450); RBC 3.76 m/uL (4.30-5.90); RDW 14.4 % (11.5-15.5); WBC 8.3 k/uL (3.8-10.6)
--- NOTE | 2019-07-27 15:47 | PN ---
PROGRESS NOTE CARDIOLOGY FOLLOW-UP NOTE: This patient is an 79-year-old gentleman who was admitted to hospital with acute inferior wall myocardial infarction. He underwent cardiac catheterization and angioplasty of right coronary artery. He developed significant pauses and underwent temporary pacemaker and subsequently underwent permanent pacemaker. This morning he is doing well and is free of symptoms. Currently on aspirin, Lipitor, Pepcid, Lasix, Glucotrol, Cozaar, Toprol and Brilinta. PHYSICAL EXAMINATION: Comfortable at rest. Vital signs are stable. There is no jugular venous distention. Carotid upstroke is normal. There is no bruit. Chest exam reveals good air entry bilaterally. Heart exam reveals first and second heart sounds. No gallop. No murmur. Abdomen is soft, nontender. Examination of extremities revealed mild edema. Peripheral pulses are felt. LABS: No recent labs. ASSESSMENT: 1. Acute inferior wall myocardial infarction, status post catheterization and angioplasty. 2. Symptomatic sinus pauses, status post permanent pacemaker. PLAN: Patient is doing well. He is stable for discharge and will follow up with me in the office in a week's time to check the pacemaker. MMODL / IJN: [id number] /
[2019-07-27 16:40] LABS: Glucose,Whole Blood 193 mg/dL (75-99)
[2019-07-27] MEDS: CLINDAMYCIN 150 MG CAP PO SCH ×2 (17:32→22:46)
--- NOTE | 2019-07-27 18:04 | P.DS ---
Providers Date of admission: 07/20/19 12:37 Attending physician: Zoey Pacheco Consults: 07/20/19 14:55 Consult Physician Urgent Consulting Provider: Suzanne Carlos Consult Reason/Comments: stemi Do you want consulting provider notified?: Already Contacted 07/20/19 22:41 Consult Physician Routine Consulting Provider: Jas Hubbard Consult Reason/Comments: Elevated creatinine Do you want consulting provider notified?: Yes Primary care physician: Stated None Hospital Course: Diagnoses: Acute inferior STEMI, status post emergent cardiac angiogram with PCI of the RCA Ischemic cardiomyopathy with ejection fraction 45-50% Sick sinus syndrome status post permanent pacemaker placement Left lower lobe pneumonia Acute kidney injury versus chronic kidney disease, resolved Diabetes mellitus, with hyperglycemia Hypertension Hospital course: This is a pleasant 79 years old female with past medical history of diabetes mellitus, hypertension. She was transferred from [facility] chest pain. Patient presents with central chest pain, EKG changes showing ST elevation in inferior leads. Patient has been evaluated by stoker erector and underwent emergent cardiac angiogram, and found to have 80% blockage of the right coronary artery, patient underwent difficult PCI with 3 stent placed in the right coronary artery, during the procedure patient became transiently hypotensive and needed dopamine for short period. Postprocedure patient stabilized and transferred to the ICU for further monitoring and treatment. However heart rate was dropping down to 20s And patient was placed on temporal pacemaker, eventually patient need permanent pacemaker placed by stoker erector team. Chest x-ray was showing mild developing left lower lobe infiltrate, patient was already on clindamycin. No leukocytosis or fever Elevated creatinine on admission came down with, [place] from 1.4 down to 1.08, and patient was restarted on his metformin as well as home dose of glyburide Physical therapy evaluated patient and recommended home with home health care. On the day of discharge patient denies chest pain or dyspnea, no abdominal pain, no nausea vomiting, no fever. No coughing. Vitas looks stable. Bedside swallow evaluation is fine. He feels generally weak, his pacemaker site is clean and dry, and he is paced on the monitor, Repeat chest x-ray this morning showing improving right basilar opacity Patient was cleared for discharge by cardiology and nephrology teams. Patient will be discharged on aspirin and Brilinta and short course of gentamicin with close outpatient follow-up Problems and management plan were discussed with the patient and he verbalized understanding and acceptance Patient was found stable and can be discharged home however he needs follow-up as an outpatient. Patient was instructed to follow up with PCP Dr. Rhoades within one week and patient agrees. Patient was instructed also to follow up with stoker erector arnol Quintero in one week and he agrees. pt told me he can call and make his own appointment , also he will call and make appointment with his new pcp and that he has his contact information at home Gen: patient is a AAOx3, no distress. Generally CVS: S1-S2, RRR, no murmur Lungs: B/L CTA, no wheezing Abdomen: soft, no distention, no tenderness, positive bowel sounds Extremity: no leg edema or induration Time spent more than 35 minutes N.B pt states he will try to get a ride to leave tonight , and if not he will has to wait till tomorrow morning , as he lives about two hours driving from the hospital Plan - Discharge Summary Discharge Rx Participant: Yes New Discharge Prescriptions: New Ticagrelor [Brilinta] 90 mg PO BID #30 tab Clindamycin [Cleocin] 150 mg PO Q8HR 5 Days #15 cap Losartan [Cozaar] 50 mg PO DAILY #30 tab Atorvastatin [Lipitor] 80 mg PO DAILY #30 tab Famotidine [Pepcid] 20 mg PO BID #60 tab Midodrine [ProAmatine] 10 mg PO AC-BID #120 tab Metoprolol Succinate (ER) [Toprol XL] 25 mg PO DAILY #30 tab.er.24h Continue glipiZIDE [Glipizide] 10 mg PO BID metFORMIN HCL 1,000 mg PO BID Pioglitazone [Actos] 30 mg PO DAILY Albuterol Sulfate [Ventolin HFA] 2 puff INHALATION RT-Q6H PRN PRN Reason: Shortness Of Breath Aspirin [Adult Low Dose Aspirin EC] 81 mg PO DAILY #30 tab Furosemide [Lasix] 20 mg PO DAILY #30 tab Discontinued Losartan [Cozaar] 25 mg PO DAILY Discharge Medication List glipiZIDE [Glipizide] 10 mg PO BID 01/29/15 [History] metFORMIN HCL 1,000 mg PO BID 01/29/15 [History] Albuterol Sulfate [Ventolin HFA] 2 puff INHALATION RT-Q6H PRN 07/20/19 [History] Pioglitazone [Actos] 30 mg PO DAILY 07/20/19 [History] Aspirin [Adult Low Dose Aspirin EC] 81 mg PO DAILY #30 tab 07/27/19 [Rx] Atorvastatin [Lipitor] 80 mg PO DAILY #30 tab 07/27/19 [Rx] Clindamycin [Cleocin] 150 mg PO Q8HR 5 Days #15 cap 07/27/19 [Rx] Famotidine [Pepcid] 20 mg PO BID #60 tab 07/27/19 [Rx] Furosemide [Lasix] 20 mg PO DAILY #30 tab 07/27/19 [Rx] Losartan [Cozaar] 50 mg PO DAILY #30 tab 07/27/19 [Rx] Metoprolol Succinate (ER) [Toprol XL] 25 mg PO DAILY #30 tab.er.24h 07/27/19 [Rx] Midodrine [ProAmatine] 10 mg PO AC-BID #120 tab 07/27/19 [Rx] Ticagrelor [Brilinta] 90 mg PO BID #30 tab 07/27/19 [Rx] Follow up Appointment(s)/Referral(s): Jas Hubbard DO [STAFF PHYSICIAN] - 2 Weeks Fletcher Mitchell [NON-STAFF] - (Supplied cane) Arnol Enciso MD [STAFF PHYSICIAN] - 1 Week Activity/Diet/Wound Care/Special Instructions: cardiac diet activity is limited till you see your doctor Discharge Disposition: HOME WITH HOME HEALTH SERVICES
[2019-07-27 20:31] LABS: Glucose,Whole Blood 265 mg/dL (75-99)
[2019-07-27 21:02] VITALS: TEMP 98.5
[2019-07-27 23:29] VITALS: RESP 16
[2019-07-28 06:06] LABS: Glucose,Whole Blood 162 mg/dL (75-99)
[2019-07-28] MEDS: MIDODRINE 5 MG TAB PO SCH (06:06)
[2019-07-28] MEDS: INSULIN ASPART (NovoLOG) 100 UNIT/ML VIAL SQ SCH ×2 (06:19→12:41)
[2019-07-28] MEDS: metFORMIN 500 MG TAB PO SCH (06:23)
[2019-07-28] MEDS: glipiZIDE 5 MG TAB PO SCH (06:23)
--- NOTE | 2019-07-28 07:50 | P.PN ---
Subjective Principal diagnosis: 79-year-old male patient with an inferior wall [place] Symptomatic sinus pauses status post permanent pacemaker implantation Left ventricular ejection fraction mildly impaired 450% with inferior wall hypokinesis Elevated RVSP He is on Midrin 10 mg twice daily along with losartan and metoprolol He is on aspirin and Brilinta Labs reviewed hemoglobin 11.4 sodium 142 potassium 4.4 creatinine 1.08 C. diff negative TSH 4.1 On examination blood pressure 142/73, pulse rate in the 60s afebrile 98.5F respirations nonlabored Breath sounds are reduced bilaterally No cardiac murmurs audible Mild bilateral lower extremity edema Patient looks comfortable Impression acute inferior wall [place] status post stenting line sinus pauses status post permanent pacemaker implantation 1 blood pressure reading that was low on the . Subsequently the blood pressure readings have been fine He has ischemic cardio myopathy I would hold off giving Midrin and observe him without his trunk If needed losartan dose can be decreased I will discontinue midodrine Watch blood pressure Ambulate Objective - Vital Signs Vital signs: Vital Signs Temp 98.5 F 07/27/19 20:00 Pulse 63 07/28/19 04:00 Resp 16 07/28/19 04:00 BP 148/65 07/28/19 04:00 Pulse Ox 95 07/28/19 04:00 Intake & Output 07/27/19 07/28/19 07/28/19 18:59 06:59 18:59 Intake Total 480 100 Balance 480 100 Weight 140.6 kg Intake: Oral 480 100 Other: # Voids 1 1 # Bowel Movements 1 1 - Labs CBC & Chem 7: 07/27/19 10:38 07/26/19 04:39 Labs: Abnormal Lab Results - Last 24 Hours (Table) 07/27/19 07/27/19 07/27/19 Range/Units 10:38 11:46 16:39 RBC 3.76 L (4.30-5.90) m/uL Hgb 11.4 L (13.0-17.5) gm/dL Hct 36.6 L (39.0-53.0) % POC Glucose (mg/dL) 205 H 193 H (75-99) mg/dL 07/27/19 07/28/19 Range/Units 20:29 06:04 RBC (4.30-5.90) m/uL Hgb (13.0-17.5) gm/dL Hct (39.0-53.0) % POC Glucose (mg/dL) 265 H 162 H (75-99) mg/dL Microbiology - Last 24 Hours (Table) 07/26/19 14:30 Gram Stain - Preliminary Sputum Sputum Culture - Preliminary
[2019-07-28] MEDS: FUROSEMIDE 20 MG TAB PO SCH (09:52)
[2019-07-28] MEDS: METOPROLOL SUCCINATE (ER) 25 MG TAB.ER.24H PO SCH (09:52)
[2019-07-28] MEDS: FAMOTIDINE 20 MG TAB PO SCH (09:52)
[2019-07-28] MEDS: ATORVASTATIN 80 MG TAB PO SCH (09:52)
[2019-07-28] MEDS: LOSARTAN 50 MG TAB PO SCH (09:52)
[2019-07-28] MEDS: CLINDAMYCIN 150 MG CAP PO SCH (09:52)
[2019-07-28] MEDS: TICAGRELOR 90 MG TAB PO SCH (09:52)
[2019-07-28] MEDS: ASPIRIN 81 MG PO SCH (09:52)
[2019-07-28 09:53] VITALS: PULSE 60
--- NOTE | 2019-07-28 11:00 | P.PN ---
Subjective Patient is seen in follow-up for acute kidney injury. Creatinine 1.08 as of July 25. Denies chest pain or shortness of breath. Good urine output. Vital signs are stable. General: The patient appeared well nourished and normally developed. HEENT: Head exam is unremarkable. Neck is without jugular venous distension. LUNGS: Lungs are clear to auscultation and percussion. Breath sounds decreased. HEART: Rate and Rhythm are regular. First and second heart sounds normal. No murmurs, rubs or gallops. ABDOMEN: Abdominal exam reveals normal bowel sounds. Non-tender and non- distended. EXTREMITITES: No clubbing, cyanosis, or edema. Objective - Vital Signs Vital signs: Vital Signs Temp 98.5 F 07/28/19 09:45 Pulse 60 07/28/19 09:45 Resp 16 07/28/19 09:45 BP 137/61 07/28/19 09:45 Pulse Ox 94 L 07/28/19 09:45 Intake & Output 07/27/19 07/28/19 07/28/19 18:59 06:59 18:59 Intake Total 480 100 Balance 480 100 Weight 140.6 kg Intake: Oral 480 100 Other: # Voids 1 1 # Bowel Movements 1 1 - Labs CBC & Chem 7: 07/27/19 10:38 07/26/19 04:39 Labs: Abnormal Lab Results - Last 24 Hours (Table) 07/27/19 07/27/19 07/27/19 Range/Units 10:38 11:46 16:39 RBC 3.76 L (4.30-5.90) m/uL Hgb 11.4 L (13.0-17.5) gm/dL Hct 36.6 L (39.0-53.0) % POC Glucose (mg/dL) 205 H 193 H (75-99) mg/dL 07/27/19 07/28/19 Range/Units 20:29 06:04 RBC (4.30-5.90) m/uL Hgb (13.0-17.5) gm/dL Hct (39.0-53.0) % POC Glucose (mg/dL) 265 H 162 H (75-99) mg/dL Microbiology - Last 24 Hours (Table) 07/26/19 14:30 Gram Stain - Final Sputum Sputum Culture - Final Assessment and Plan Plan: Assessment: 1. Acute kidney injury secondary to ATN secondary to acute CO with component of contrast-induced acute kidney injury. Improved. 2. Coronary artery disease status post stenting to the RCA and pacemaker placement. 3. Diabetes mellitus. 4. Chronic systolic CHF with ejection fraction of 40-45% with moderate to severe pulmonary hypertension. Plan: Maintain Lasix 20 mg orally once daily. Avoid nephrotoxins. Anticipate discharge soon. Follow up outpatient in 2 weeks.
[2019-07-28 12:01] VITALS: BP 164/74
[2019-07-28 12:24] LABS: Glucose,Whole Blood 258 mg/dL (75-99)
--- NOTE | 2019-07-28 19:13 | PN ---
PROGRESS NOTE DATE OF SERVICE: 07/28/2019 This 79-year-old gentleman admitted with acute inferior myocardial infarction had emergent cardiac cath/PCI of the RCA. The patient was seen by Cardiology with ejection fraction 45 to 50%. The patient also had sick sinus syndrome, pacemaker implant. Patient being closely monitored at this time. PAST MEDICAL HISTORY: Reviewed. REVIEW OF SYSTEMS: Cardiovascular system: S1, S2. Respiratory: As mentioned earlier. GI as mentioned earlier. CENTRAL NERVOUS SYSTEM: No numbness or weakness. CURRENT MEDICATIONS: Reviewed and include: 1. Tylenol p.r.n. 2. [place]. 3. Aspirin. 4. Lipitor. 5. Tums. 6. Pepcid. 7. Lasix. 8. Glucotrol. 9. NovoLog. 10.Cozaar. 11.Glucophage. 12.Toprol-XL. 13.ProAmatine. 14.Brilinta. PHYSICAL EXAMINATION: Alert and oriented times three. Pulse 60. Blood pressure 136/61, respirations 16, temperature 98.2, pulse ox 94% on room air. HEENT: Conjunctivae normal. Oral mucosa moist. NECK is no jugular venous distention. No carotid bruit. No lymph node enlargement. CARDIOVASCULAR: S1, S2 muffled. RESPIRATORY: Breath sounds diminished in the bases. Scattered rhonchi. ABDOMEN: Soft, nontender. LEGS no edema. No swelling. CENTRAL NERVOUS SYSTEM: No focal deficits. LABS: At this time shows Accu-Cheks 162, 258. ASSESSMENT: 1. Acute inferior wall [id number] myocardial infarction status post cardiac catheterization, PCI to RCA. 2. Ischemic cardiomyopathy, ejection fraction 45-50 percent. 3. Sick sinus syndrome status post permanent pacemaker implantation. 4. Left lower pneumonia. 5. Acute kidney injury with possible chronic kidney stage III baseline. 6. Diabetes mellitus type 2 with hyperglycemia. 7. Hypertension. 8. History of cholecystectomy. 9. Remote history of nicotine dependence. 10.Obesity with body mass of 42. 11.FULL CODE. RECOMMENDATIONS AND DISCUSSION: This 79-year-old gentleman presented with multiple complex medical issues, we will monitor the patient closely, continue the current medications, management and symptomatic treatment. I recommend the patient to be discharged home and follow up with Dr. Jf Harris in the outpatient setting as well as follow up with Nephrology and as well as Cardiology and the new medications are Brilinta, short course of Cleocin, Lipitor, Pepcid, and metoprolol and as well as Cozaar. Please refer to the medication reconciliation sheet for a list of discharge medications. MMODL / IJN: [id number] /
[2019-07-29] MEDS ORDERED: LOSARTAN 25 MG TAB PO SCH (09:00)
== END 2019-07-28 15:47 | disposition home health service (06) | DRG 242 ==
LOC: 2SICU 12:37 → 3SCARD 07-26 20:11
PROVIDERS: ADMIT Hospitalist; ATTEND Hospitalist
PROC: 027036Z Dilation of Coronary Artery, One Artery with Three Drug-eluting Intraluminal Devices, Percutaneous Approach (ICD-10-PCS; 2019-07-20 15:10)
PROC: 3E033XZ Introduction of Vasopressor into Peripheral Vein, Percutaneous Approach (ICD-10-PCS; 2019-07-20 15:10)
PROC: 5A1223Z Performance of Cardiac Pacing, Continuous (ICD-10-PCS; 2019-07-22)
PROC: 0JH606Z Insertion of Pacemaker, Dual Chamber into Chest Subcutaneous Tissue and Fascia, Open Approach (ICD-10-PCS; principal; 2019-07-25 08:00)
PROC: 02H63JZ Insertion of Pacemaker Lead into Right Atrium, Percutaneous Approach (ICD-10-PCS; principal; 2019-07-25 08:00)
PROC: 02HK3JZ Insertion of Pacemaker Lead into Right Ventricle, Percutaneous Approach (ICD-10-PCS; principal; 2019-07-25 08:00)
DX: I21.19 ST elevation (STEMI) myocardial infarction involving other coronary artery of inferior wall (principal); J18.9 Pneumonia, unspecified organism; N17.0 Acute kidney failure with tubular necrosis; I44.2 Atrioventricular block, complete; Z68.41 Body mass index [BMI] 40.0-44.9, adult; I13.0 Hypertensive heart and chronic kidney disease with heart failure and stage 1 through stage 4 chronic kidney disease, or unspecified chronic kidney disease; I50.22 Chronic systolic (congestive) heart failure; I49.5 Sick sinus syndrome; I27.20 Pulmonary hypertension, unspecified; E11.22 Type 2 diabetes mellitus with diabetic chronic kidney disease; N18.3 Chronic kidney disease, stage 3 (moderate); E11.65 Type 2 diabetes mellitus with hyperglycemia; E66.9 Obesity, unspecified; I25.10 Atherosclerotic heart disease of native coronary artery without angina pectoris; I25.5 Ischemic cardiomyopathy; I95.9 Hypotension, unspecified; N14.1 Nephropathy induced by other drugs, medicaments and biological substances; T50.8X5A Adverse effect of diagnostic agents, initial encounter; E78.5 Hyperlipidemia, unspecified; G47.30 Sleep apnea, unspecified; M19.90 Unspecified osteoarthritis, unspecified site; Z79.82 Long term (current) use of aspirin; Z79.84 Long term (current) use of oral hypoglycemic drugs; Z79.899 Other long term (current) drug therapy; Z87.891 Personal history of nicotine dependence; Z71.3 Dietary counseling and surveillance; Z87.19 Personal history of other diseases of the digestive system; Z90.49 Acquired absence of other specified parts of digestive tract; Z98.890 Other specified postprocedural states; Z88.0 Allergy status to penicillin; Z91.018 Allergy to other foods; Y92.230 Patient room in hospital as the place of occurrence of the external cause; Z83.3 Family history of diabetes mellitus; Z80.49 Family history of malignant neoplasm of other genital organs
CPT/HCPCS: 33208; 33210; 71045; 71046; 80048; 81001; 83036; 84443; 84484; 85025; 85027; 87070; 87205; 87324; 87635; 93306; 93458

== ENCOUNTER 2020-05-20 18:34 | Inpatient (IN) | payer MEDICARE, BC ==
[2020-05-20] MEDS ORDERED: ACETAMINOPHEN TAB 500 MG TAB PO STA (19:11)
[2020-05-20] MEDS ORDERED: dexAMETHasone 2 MG TAB PO STA (19:12)
--- NOTE | 2020-05-20 19:15 | ED ---
General Adult HPI - General Chief complaint: Shortness of Breath Stated complaint: ZAK Time Seen by Provider: 05/20/20 18:40 Source: patient, EMS, RN notes reviewed, old records reviewed Mode of arrival: EMS Limitations: no limitations - History of Present Illness Initial comments: This is an 80-year-old male who presents emergency Department stating that he has had shortness of breath and feeling fatigued for at least 2 weeks. Patient states he has had exposure to COVID . Patient states he has had a fever. Patient states she's also states and smile. Patient also states she's had diarrhea. Patient denies any chest pain or palpitations. Patient denies any abdominal pain patient denies nausea vomiting diarrhea. According to EMS with the patient was coming in he was satting in the low 80s. Patient is currently on a few liters of oxygen and sat in mid 90s. Patient is a diabetic and has high blood pressure. Patient also has a pacemaker. - Related Data Home Medications Medication Instructions Recorded Confirmed glipiZIDE [Glipizide] 20 mg PO BID 01/29/15 05/20/20 metFORMIN HCL 1,000 mg PO BID 01/29/15 05/20/20 Pioglitazone [Actos] 30 mg PO DAILY 07/20/19 05/20/20 Clopidogrel Bisulfate [Plavix] 75 mg PO DAILY 05/20/20 05/20/20 Losartan [Cozaar] 50 mg PO DAILY 05/20/20 05/20/20 Metoprolol Succinate (ER) [Toprol 50 mg PO DAILY 05/20/20 05/20/20 Xl] Previous Rx's Medication Instructions Recorded Aspirin [Adult Low Dose Aspirin EC] 81 mg PO DAILY #30 tab 07/27/19 Atorvastatin [Lipitor] 80 mg PO DAILY #30 tab 07/27/19 Furosemide [Lasix] 20 mg PO DAILY #30 tab 07/27/19 Allergies Allergy/AdvReac Type Severity Reaction Status Date / Time Mushroom Allergy Vomiting Verified 05/20/20 20:46 Penicillins Allergy Unknown Verified 05/20/20 20:46 Review of Systems ROS Statement: Those systems with pertinent positive or pertinent negative responses have been documented in the HPI. ROS Other: All systems not noted in ROS Statement are negative. Past Medical History Past Medical History: Diabetes Mellitus, Hypertension Additional Past Medical History / Comment(s): sinusitis, diverticulits History of Any Multi-Drug Resistant Organisms: None Reported Past Surgical History: Bowel Resection, Cholecystectomy Additional Past Surgical History / Comment(s): bowel resection d/t diverticulitis, colonoscopy Past Anesthesia/Blood Transfusion Reactions: No Reported Reaction Past Psychological History: No Psychological Hx Reported Smoking Status: Never smoker Past Alcohol Use History: Occasional Past Drug Use History: None Reported - Past Family History Mother Additional Family Medical History / Comment(s): reproductive cancer Father Family Medical History: Diabetes Mellitus General Exam - General Exam Comments Initial Comments: GENERAL: Patient is well-developed and well-nourished. Patient is nontoxic and well-hydr ated and is in moderate distress. ENT: Neck is soft and supple. No significant lymphadenopathy is noted. Oropharynx is clear. Moist mucous membranes. Neck has full range of motion without eliciting any pain. EYES: The sclera were anicteric and conjunctiva were pink and moist. Extraocular move ments were intact and pupils were equal round and reactive to light. Eyelids were unremarkable. PULMONARY: Unlabored respirations. Good breath sounds bilaterally. Crackles bilateral bases. CARDIOVASCULAR: There is a regular rate and rhythm without any murmurs gallops or rubs. ABDOMEN: Soft and nontender with normal bowel sounds. SKIN: Skin is clear with no lesions or rashes and otherwise unremarkable. NEUROLOGIC: Patient is alert and oriented x3. Cranial nerves II through XII are grossly intact. Motor and sensory are also intact. Normal speech, volume and content. Symmetrical smile. MUSCULOSKELETAL: Normal extremities with adequate strength and full range of motion. No lower extremity swelling or edema. No calf tenderness. LYMPHATICS: No significant lymphadenopathy is noted PSYCHIATRIC: Normal psychiatric evaluation. Limitations: no limitations Course Vital Signs 05/20/20 05/20/20 18:41 18:45 Temperature 101.5 F H Pulse Rate 62 67 Respiratory 26 H Rate Blood Pressure 119/62 O2 Sat by Pulse 84 L 97 Oximetry Medical Decision Making - Medical Decision Making EKG shows a paced rhythm at 65 bpm UT interval is on a 72 QRS is 186 QT interval 46 QTC is 505. Chest x-ray shows pulmonary infiltrates consistent with COVID. Patient was 85% on room air. I placed the patient on oxygen and he was satting 95-96%. Patient was much more comfortable. I started the patient on Decadron and ordered Decadron daily. I spoke with Dr. Edwards agreed to admit the patient admitted the patient wrote admitting orders I consult pulmonary. - Lab Data Result diagrams: 05/20/20 19:34 05/20/20 19:34 Lab Results 05/20/20 05/20/20 05/20/20 Range/Units 19:34 19:34 19:34 WBC 4.6 (3.8-10.6) k/uL RBC 3.92 L (4.30-5.90) m/uL Hgb 12.5 L (13.0-17.5) gm/dL Hct 37.1 L (39.0-53.0) % MCV 94.7 (80.0-100.0) fL MCH 31.8 (25.0-35.0) pg MCHC 33.6 (31.0-37.0) g/dL RDW 13.2 (11.5-15.5) % Plt Count 153 (150-450) k/uL MPV 9.2 Neutrophils % 53 % Lymphocytes % 32 % Monocytes % 11 % Eosinophils % 1 % Basophils % 1 % Neutrophils # 2.4 (1.3-7.7) k/uL Lymphocytes # 1.5 (1.0-4.8) k/uL Monocytes # 0.5 (0-1.0) k/uL Eosinophils # 0.0 (0-0.7) k/uL Basophils # 0.1 (0-0.2) k/uL PT 10.1 (9.0-12.0) sec INR 0.9 (<1.2) APTT 24.7 (22.0-30.0) sec D-Dimer 0.77 H (<0.60) mg/L FEU Sodium (137-145) mmol/L Potassium (3.5-5.1) mmol/L Chloride (98-107) mmol/L Carbon Dioxide (22-30) mmol/L Anion Gap mmol/L BUN (9-20) mg/dL Creatinine (0.66-1.25) mg/dL Est GFR (CKD-EPI)AfAm (>60 ml/min/1.73 sqM) Est GFR (CKD-EPI)NonAf (>60 ml/min/1.73 sqM) Glucose (74-99) mg/dL Plasma Lactic Acid José (0.7-2.0) mmol/L Calcium (8.4-10.2) mg/dL Magnesium (1.6-2.3) mg/dL Total Bilirubin (0.2-1.3) mg/dL AST (17-59) U/L ALT (4-49) U/L Alkaline Phosphatase (38-126) U/L Lactate Dehydrogenase (313-618) U/L C-Reactive Protein (<10.0) mg/L Total Protein (6.3-8.2) g/dL Albumin (3.5-5.0) g/dL Coronavirus (PCR) Detected A (Not Detectd) 05/20/20 05/20/20 Range/Units 19:34 19:34 WBC (3.8-10.6) k/uL RBC (4.30-5.90) m/uL Hgb (13.0-17.5) gm/dL Hct (39.0-53.0) % MCV (80.0-100.0) fL MCH (25.0-35.0) pg MCHC (31.0-37.0) g/dL RDW (11.5-15.5) % Plt Count (150-450) k/uL MPV Neutrophils % % Lymphocytes % % Monocytes % % Eosinophils % % Basophils % % Neutrophils # (1.3-7.7) k/uL Lymphocytes # (1.0-4.8) k/uL Monocytes # (0-1.0) k/uL Eosinophils # (0-0.7) k/uL Basophils # (0-0.2) k/uL PT (9.0-12.0) sec INR (<1.2) APTT (22.0-30.0) sec D-Dimer (<0.60) mg/L FEU Sodium 136 L (137-145) mmol/L Potassium 4.5 (3.5-5.1) mmol/L Chloride 102 (98-107) mmol/L Carbon Dioxide 26 (22-30) mmol/L Anion Gap 8 mmol/L BUN 47 H (9-20) mg/dL Creatinine 1.63 H (0.66-1.25) mg/dL Est GFR (CKD-EPI)AfAm 45 (>60 ml/min/1.73 sqM) Est GFR (CKD-EPI)NonAf 39 (>60 ml/min/1.73 sqM) Glucose 203 H (74-99) mg/dL Plasma Lactic Acid José 1.6 (0.7-2.0) mmol/L Calcium 8.3 L (8.4-10.2) mg/dL Magnesium 1.8 (1.6-2.3) mg/dL Total Bilirubin 0.5 (0.2-1.3) mg/dL AST 44 (17-59) U/L ALT 22 (4-49) U/L Alkaline Phosphatase 53 (38-126) U/L Lactate Dehydrogenase 818 H (313-618) U/L C-Reactive Protein 57.7 H (<10.0) mg/L Total Protein 6.7 (6.3-8.2) g/dL Albumin 3.4 L (3.5-5.0) g/dL Coronavirus (PCR) (Not Detectd) Disposition Clinical Impression: Pneumonia due to COVID-19 virus Disposition: ADMITTED IP TO THIS [facility] Referrals: Nonstaff,Physician [Primary Care Provider] - 1-2 days Time of Disposition: 21:06
[2020-05-20 19:49] LABS: Basophils # (A) 0.1 k/uL (0-0.2); Basophils % (A) 1 %; Eosinophils % (A) 1 %; HCT 37.1 % (39.0-53.0); HGB 12.5 gm/dL (13.0-17.5); Lymphocytes # (A) 1.5 k/uL (1.0-4.8); Lymphocytes % (A) 32 %; MCH 31.8 pg (25.0-35.0); MCHC 33.6 g/dL (31.0-37.0); MCV 94.7 fL (80.0-100.0); Mean Platelet Volume 9.2; Monocytes # (A) 0.5 k/uL (0-1.0); Monocytes % (A) 11 %; Neutrophils # (A) 2.4 k/uL (1.3-7.7); Neutrophils % (A) 53 %; Platelet Count 153 k/uL (150-450); RBC 3.92 m/uL (4.30-5.90); RDW 13.2 % (11.5-15.5); WBC 4.6 k/uL (3.8-10.6)
[2020-05-20 20:00] LABS: Albumin 3.4 g/dL (3.5-5.0); C Reactive Protein 57.7 mg/L (<10.0); Calcium 8.3 mg/dL (8.4-10.2); Magnesium 1.8 mg/dL (1.6-2.3); Potassium 4.5 mmol/L (3.5-5.1); Total Bilirubin 0.5 mg/dL (0.2-1.3); Total Protein 6.7 g/dL (6.3-8.2)
[2020-05-20 20:02] LABS: INR 0.9 (<1.2); Partial Thromboplastin Time 24.7 sec (22.0-30.0); Prothrombin Time 10.1 sec (9.0-12.0)
[2020-05-20 20:11] LABS: D-Dimer 0.77 mg/L FEU (<0.60)
--- NOTE | 2020-05-20 20:28 | XR ---
EXAMINATION TYPE: XR chest 1V portable DATE OF EXAM: 05/20/2020 COMPARISON: 07/27/2019 HISTORY: Pneumonia. Short of breath. TECHNIQUE: Single view FINDINGS: There is some coarse interstitial density in the mid and lower lung waller. Heart is slight ly enlarged. There is no obvious heart failure. There is left axillary pacemaker. IMPRESSION: Mild interstitial pulmonary infiltrates improved compared to old exam. No obvious heart f ailure. Stable cardiomegaly.
[2020-05-20] MEDS ORDERED: SODIUM CHLORIDE 0.9% 1,000 ML IV ONE (21:07)
[2020-05-20] MEDS: ENOXAPARIN 30 MG/0.3 ML SYRINGE SQ SCH (23:45)
[2020-05-21 05:08] LABS: Ferritin 984.6 ng/mL (22.0-322.0)
[2020-05-21 07:00] LABS: Glucose,Whole Blood 328 mg/dL (75-99)
[2020-05-21] MEDS: ENOXAPARIN 30 MG/0.3 ML SYRINGE SQ SCH (07:24)
[2020-05-21] MEDS: INSULIN ASPART (NovoLOG) 100 UNIT/ML VIAL SQ SCH ×4 (07:24→21:00)
[2020-05-21] MEDS: glipiZIDE 10 MG TAB PO SCH ×2 (07:25→21:00)
[2020-05-21] MEDS: ASPIRIN 81 MG PO SCH (07:25)
[2020-05-21] MEDS: PIOGLITAZONE 30 MG TAB PO SCH (07:25)
[2020-05-21] MEDS: METOPROLOL SUCCINATE (ER) 50 MG TAB.ER.24H PO SCH (07:26)
[2020-05-21] MEDS: CLOPIDOGREL 75 MG TAB PO SCH (07:26)
[2020-05-21] MEDS: dexAMETHasone 2 MG TAB PO SCH (07:26)
[2020-05-21] MEDS: ASCORBIC ACID 500 MG TAB PO SCH (07:26)
[2020-05-21] MEDS: ZINC SULFATE 220 MG CAP PO SCH (07:27)
[2020-05-21] MEDS: ATORVASTATIN 80 MG TAB PO SCH (07:27)
[2020-05-21] MEDS ORDERED: LOSARTAN 50 MG TAB PO SCH (09:00)
[2020-05-21] MEDS ORDERED: FUROSEMIDE 20 MG TAB PO SCH (09:00)
[2020-05-21] MEDS ORDERED: FAMOTIDINE 20 MG TAB PO SCH (09:00)
[2020-05-21 12:23] LABS: Glucose,Whole Blood 395 mg/dL (75-99)
--- NOTE | 2020-05-21 15:26 | P.HPIM ---
History of Present Illness 80-year-old male who presents emergency Department stating that he has had shortness of breath and feeling fatigued for at least 2 weeks. Patient states he has had exposure to COVID . Patient states he has had a fever. Patient st ates she's also states and smile. Patient also states she's had diarrhea. Patient denies any chest pain or palpitations. Patient denies any abdominal pain patient denies nausea vomiting diarrhea. According to EMS with the patient was coming in he was satting in the low 80s. Patient is currently on a few liters of oxygen and sat in mid 90s. Patient is a diabetic and has high blood pressure. Patient also has a pacemaker. Patient is presently on 2 L of oxygen was requiring 4 L yesterday. Patient was started on IV fluids patient creatinine went up to 1.6 baseline is around 1. Patient's blood sugars are highly elevated. Patient tests positive for Covid. Review of Systems REVIEW OF SYSTEMS: CONSTITUTIONAL: As mentioned in HPI HEENT: No recent visual problems or hearing problems. Denied any sore throat. CARDIOVASCULAR: No chest pain, orthopnea, PND, no palpitations, no syncope. PULMONARY: no hemoptysis. GASTROINTESTINAL: No diarrhea, no nausea, no vomiting, no abdominal pain. NEUROLOGICAL: No headaches, no weakness, no numbness. HEMATOLOGICAL: Denies any bleeding or petechiae. GENITOURINARY: Denies any burning micturition, frequency, or urgency. MUSCULOSKELETAL/RHEUMATOLOGICAL: Denies any joint pain, swelling, or any muscle pain. ENDOCRINE: Denies any polyuria or polydipsia. The rest of the 14-point review of systems is negative. Past Medical History Past Medical History: Diabetes Mellitus, Hypertension Additional Past Medical History / Comment(s): sinusitis, diverticulits History of Any Multi-Drug Resistant Organisms: None Reported Past Surgical History: Bowel Resection, Cholecystectomy Additional Past Surgical History / Comment(s): bowel resection d/t diverticulitis, colonoscopy Past Anesthesia/Blood Transfusion Reactions: No Reported Reaction Past Psychological History: No Psychological Hx Reported Additional Psychological History / Comment(s): pt lives with his girlfriend jose, is independant, no assistive devices.no outside services. 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 Smoking Status: Former smoker Past Alcohol Use History: Occasional Past Drug Use History: None Reported - Past Family History Mother Additional Family Medical History / Comment(s): reproductive cancer Father Family Medical History: Diabetes Mellitus Medications and Allergies Home Medications Medication Instructions Recorded Confirmed Type glipiZIDE [Glipizide] 20 mg PO BID 01/29/15 05/20/20 History metFORMIN HCL 1,000 mg PO BID 01/29/15 05/20/20 History Pioglitazone [Actos] 30 mg PO DAILY 07/20/19 05/20/20 History Aspirin [Adult Low Dose Aspirin EC] 81 mg PO DAILY #30 tab 07/27/19 05/20/20 Rx Atorvastatin [Lipitor] 80 mg PO DAILY #30 tab 07/27/19 05/20/20 Rx Furosemide [Lasix] 20 mg PO DAILY #30 tab 07/27/19 05/20/20 Rx Clopidogrel Bisulfate [Plavix] 75 mg PO DAILY 05/20/20 05/20/20 History Losartan [Cozaar] 50 mg PO DAILY 05/20/20 05/20/20 History Metoprolol Succinate (ER) [Toprol 50 mg PO DAILY 05/20/20 05/20/20 History Xl] Allergies Allergy/AdvReac Type Severity Reaction Status Date / Time Mushroom Allergy Vomiting Verified 05/20/20 20:46 Penicillins Allergy Unknown Verified 05/20/20 20:46 Physical Exam Vitals: Vital Signs Temp Pulse Pulse Resp BP BP Pulse Ox 05/21/20 10:36 97.8 F 65 16 104/53 95 05/21/20 08:58 98 05/21/20 05:28 97.6 F 64 124/62 98 05/21/20 00:10 98.3 F 63 19 104/60 93 L 05/20/20 23:30 98.9 F 05/20/20 18:45 67 97 05/20/20 18:41 101.5 F H 62 26 H 119/62 84 L Intake and Output 05/21/20 05/21/20 05/21/20 06:59 14:59 22:59 Other: Voiding Method Toilet Toilet # Voids 1 # Bowel Movements 0 Weight 136.078 kg PHYSICAL EXAMINATION: GENERAL: The patient is alert and oriented x3, not in any acute distress. Obese HEENT: Pupils are round and equally reacting to light. EOMI. No scleral icterus. No conjunctival pallor. Normocephalic, atraumatic. No pharyngeal erythema. No thyromegaly. CARDIOVASCULAR: S1 and S2 present. No murmurs, rubs, or gallops. PULMONARY: Chest is clear to auscultation, no wheezing or crackles. ABDOMEN: Soft, nontender, nondistended, normoactive bowel sounds. No palpable organomegaly. MUSCULOSKELETAL: No joint swelling or deformity. EXTREMITIES: No cyanosis, clubbing, or pedal edema. NEUROLOGICAL: Gross neurological examination did not reveal any focal deficits. SKIN: No rashes. Note: Because of COVID 19 isolation, some of the history and physical exam findings are indirect and obtained from nursing staff, and other physician examinations to avoid unnecessary contact with the patient. Results CBC & Chem 7: 05/20/20 19:34 05/20/20 19:34 Labs: Abnormal Lab Results - Last 24 Hours (Table) 05/20/20 05/20/20 05/20/20 Range/Units 19:34 19:34 19:34 RBC 3.92 L (4.30-5.90) m/uL Hgb 12.5 L (13.0-17.5) gm/dL Hct 37.1 L (39.0-53.0) % D-Dimer 0.77 H (<0.60) mg/L FEU Sodium (137-145) mmol/L BUN (9-20) mg/dL Creatinine (0.66-1.25) mg/dL Glucose (74-99) mg/dL POC Glucose (mg/dL) (75-99) mg/dL Calcium (8.4-10.2) mg/dL Ferritin (22.0-322.0) ng/mL Lactate Dehydrogenase (313-618) U/L C-Reactive Protein (<10.0) mg/L Albumin (3.5-5.0) g/dL Procalcitonin (0.02-0.09) ng/mL Coronavirus (PCR) Detected A (Not Detectd) 05/20/20 05/20/20 05/21/20 Range/Units 19:34 19:34 06:58 RBC (4.30-5.90) m/uL Hgb (13.0-17.5) gm/dL Hct (39.0-53.0) % D-Dimer (<0.60) mg/L FEU Sodium 136 L (137-145) mmol/L BUN 47 H (9-20) mg/dL Creatinine 1.63 H (0.66-1.25) mg/dL Glucose 203 H (74-99) mg/dL POC Glucose (mg/dL) 328 H (75-99) mg/dL Calcium 8.3 L (8.4-10.2) mg/dL Ferritin 984.6 H (22.0-322.0) ng/mL Lactate Dehydrogenase 818 H (313-618) U/L C-Reactive Protein 57.7 H (<10.0) mg/L Albumin 3.4 L (3.5-5.0) g/dL Procalcitonin 0.12 H (0.02-0.09) ng/mL Coronavirus (PCR) (Not Detectd) 05/21/20 Range/Units 12:21 RBC (4.30-5.90) m/uL Hgb (13.0-17.5) gm/dL Hct (39.0-53.0) % D-Dimer (<0.60) mg/L FEU Sodium (137-145) mmol/L BUN (9-20) mg/dL Creatinine (0.66-1.25) mg/dL Glucose (74-99) mg/dL POC Glucose (mg/dL) 395 H (75-99) mg/dL Calcium (8.4-10.2) mg/dL Ferritin (22.0-322.0) ng/mL Lactate Dehydrogenase (313-618) U/L C-Reactive Protein (<10.0) mg/L Albumin (3.5-5.0) g/dL Procalcitonin (0.02-0.09) ng/mL Coronavirus (PCR) (Not Detectd) Thrombosis Risk Factor Assmnt - Choose All That Apply Any of the Below Risk Factors Present?: Yes Each Factor Represents 1 point: Obesity (BMI >25) Other Risk Factors: Yes Each Risk Factor Represents 3 Points: Age 75 years or older Other congenital or acquired thrombophilia - If yes, enter type in comment: No Thrombosis Risk Factor Assessment Total Risk Factor Score: 4 Thrombosis Risk Factor Assessment Level: Moderate Risk Assessment and Plan Plan: -acute hypoxic respiratory failure: Secondary to covid 19 pneumonia patient will be can you done Decadron. Will be can you done Covid vitamins. Monitor inflammatory markers. -Type 2 diabetes mellitus uncontrolled elevated blood sugars secondary to systemic steroids metformin is held because of his the elevated creatinine. Patient was started on insulin. We'll also await hemoglobin A1c most probably will require insulin even if he is not on systemic steroids as per the patient his blood sugars are well controlled at home -Hypotonic hyponatremia continue with IV fluids -Acute renal failure secondary to Covid 19: Patient will be started on IV fluids -Hypertension -DVT prophylaxis-Lovenox
--- NOTE | 2020-05-21 15:34 | P.CNPUL ---
History of Present Illness Consult date: 05/21/20 Requesting physician: Fidencio Jolley Reason for consult: dyspnea, cough, hypoxemia, pneumonia, abnormal CXR/CT Chief complaint: Shortness of breath, cough, chest congestion. History of present illness: 80-year-old male, who was brought to the emergency department by EMS. The patient apparently has had 2 weeks' worth of increasing shortness of breath, and significant fatigue. The patient also had chest congestion. He had a fever. The patient states that he is just not been feeling well and getting progressively worse. He also apparently had an episode or 2 of diarrhea. The patient denied any chest pain or chest pressure or palpitations. The patient also denied nausea, vomiting, and abdominal pain. Apparently when EMS arrived, the patient's saturations were in the low 80s on room air. For that reason, he was transported in, evaluated, and admitted with a diagnosis of COVID 19 19 pneumonia. The patient does have a history of diabetes, hypertension, and a previous pacemaker insertion. White count was 4.6, hemoglobin 12.5, hematocrit 37.1, and platelet count 153,000. PT, INR, and PTT were all normal. D-dimer was 0.77. Sodium 136, potassium 4.5, chlorides 102, CO2 26, anion gap 8, BUN 47, and creatinine 1.63. Ferritin was 985, LDH 818, C-reactive protein 58, and pro-calcitonin level was 0.12. Chest x-ray did show some interstitial infiltrates. Review of Systems REVIEW OF SYSTEMS: CONSTITUTIONAL: Weakness, fatigue, and fever. NEUROLOGIC: [ Negative.] HEENT: [ Negative.] CARDIAC: [Negative.] PULMONARY: Shortness of breath, chest congestion, pain in the chest while coughing, and minimal phlegm production. GI: Diarrhea. : [Negative.] RHEUMATOLOGIC: [ Negative.] IMMUNOLOGIC: [ Negative.] ENDOCRINE: [Negative. ] DERMATOLOGIC: [Negative.] Past Medical History Past Medical History: Diabetes Mellitus, Hypertension Additional Past Medical History / Comment(s): sinusitis, diverticulits History of Any Multi-Drug Resistant Organisms: None Reported Past Surgical History: Bowel Resection, Cholecystectomy Additional Past Surgical History / Comment(s): bowel resection d/t diverticulit is, colonoscopy Past Anesthesia/Blood Transfusion Reactions: No Reported Reaction Past Psychological History: No Psychological Hx Reported Additional Psychological History / Comment(s): pt lives with his girlfriend jose, is independant, no assistive devices.no outside services. 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 Smoking Status: Former smoker Past Alcohol Use History: Occasional Past Drug Use History: None Reported - Past Family History Mother Additional Family Medical History / Comment(s): reproductive cancer Father Family Medical History: Diabetes Mellitus Medications and Allergies Home Medications Medication Instructions Recorded Confirmed Type glipiZIDE [Glipizide] 20 mg PO BID 01/29/15 05/20/20 History metFORMIN HCL 1,000 mg PO BID 01/29/15 05/20/20 History Pioglitazone [Actos] 30 mg PO DAILY 07/20/19 05/20/20 History Aspirin [Adult Low Dose Aspirin EC] 81 mg PO DAILY #30 tab 07/27/19 05/20/20 Rx Atorvastatin [Lipitor] 80 mg PO DAILY #30 tab 07/27/19 05/20/20 Rx Furosemide [Lasix] 20 mg PO DAILY #30 tab 07/27/19 05/20/20 Rx Clopidogrel Bisulfate [Plavix] 75 mg PO DAILY 05/20/20 05/20/20 History Losartan [Cozaar] 50 mg PO DAILY 05/20/20 05/20/20 History Metoprolol Succinate (ER) [Toprol 50 mg PO DAILY 05/20/20 05/20/20 History Xl] Allergies Allergy/AdvReac Type Severity Reaction Status Date / Time Mushroom Allergy Vomiting Verified 05/20/20 20:46 Penicillins Allergy Unknown Verified 05/20/20 20:46 Physical Exam Osteopathic Statement: *. No significant issues noted on an osteopathic structural exam other than those noted in the History and Physical/Consult. Vitals: Vital Signs Temp Pulse Pulse Resp BP BP Pulse Ox 05/21/20 10:36 97.8 F 65 16 104/53 95 05/21/20 08:58 98 05/21/20 05:28 97.6 F 64 124/62 98 05/21/20 00:10 98.3 F 63 19 104/60 93 L 05/20/20 23:30 98.9 F 05/20/20 18:45 67 97 05/20/20 18:41 101.5 F H 62 26 H 119/62 84 L Intake and Output 03/05/21/20 05/21/20 06:59 14:59 22:59 Other: Voiding Method Toilet Toilet # Voids 1 # Bowel Movements 0 Weight 136.078 kg No acute distress, oriented 3. Currently on 2 L nasal cannula. No conversational dyspnea, or use of accessory muscles. HEENT examination is grossly unremarkable. Mucous membranes are moist. No oral lesions. Neck supple. Full range of motion. No adenopathy thyromegaly or neck vein distention. Cardiovascular examination reveals regular rhythm rate. S1-S2 normal. No S3 or S4. No discernible murmur noted. Heart rate 65 bpm. Lungs reveal bilateral coarse rhonchi and bibasilar crackles. No wheezes. Breath sounds equal bilaterally. Abdomen soft bowel sounds are heard. No masses or tenderness. Extremities are intact. No cyanosis clubbing or edema. Skin is without rash or lesion. Neurologic examination is brief but nonfocal. Results - Laboratory Findings CBC and BMP: 05/20/20 19:34 05/20/20 19:34 PT/INR, D-dimer PT 10.1 sec (9.0-12.0) 05/20/20 19:34 INR 0.9 (<1.2) 05/20/20 19:34 D-Dimer 0.77 mg/L FEU (<0.60) H 05/20/20 19:34 Abnormal lab findings: Abnormal Labs 05/20/20 05/20/20 05/20/20 19:34 19:34 19:34 RBC 3.92 L Hgb 12.5 L Hct 37.1 L D-Dimer 0.77 H Sodium BUN Creatinine Glucose POC Glucose (mg/dL) Calcium Ferritin Lactate Dehydrogenase C-Reactive Protein Albumin Procalcitonin Coronavirus (PCR) Detected A 05/20/20 05/20/20 05/21/20 19:34 19:34 06:58 RBC Hgb Hct D-Dimer Sodium 136 L BUN 47 H Creatinine 1.63 H Glucose 203 H POC Glucose (mg/dL) 328 H Calcium 8.3 L Ferritin 984.6 H Lactate Dehydrogenase 818 H C-Reactive Protein 57.7 H Albumin 3.4 L Procalcitonin 0.12 H Coronavirus (PCR) 05/21/20 12:21 RBC Hgb Hct D-Dimer Sodium BUN Creatinine Glucose POC Glucose (mg/dL) 395 H Calcium Ferritin Lactate Dehydrogenase C-Reactive Protein Albumin Procalcitonin Coronavirus (PCR) - Diagnostic Findings Chest x-ray: image reviewed Assessment and Plan Assessment: Acute hypoxemic respiratory failure, secondary to COVID 19 pneumonitis/pneumonia. History of diabetes mellitus. History of hypertension. History of hyperlipidemia. History of chronic sinus disease. History of diverticulitis, status post bowel resection. Plan: Plan dated 05/21/2020. The patient was only a candidate for Decadron, and the typical vitamin cocktail. He was not a candidate for REM, TOCI, or CP. We will continue to follow. Prognosis is guarded. We'll make additional recommendations were appropriate. The patient should have a follow-up chest x-ray next day or two. Also, inflammatory markers should be checked periodically. Prognosis is guarded. Time with Patient: Greater than 30
[2020-05-21 17:18] LABS: Glucose,Whole Blood 450 mg/dL (75-99)
[2020-05-21 20:32] LABS: Glucose,Whole Blood 437 mg/dL (75-99)
[2020-05-21] MEDS ORDERED: INSULIN DETEMIR (LEVEMIR) 100 UNIT/ML SYR SQ SCH (21:00)
[2020-05-22] MEDS ORDERED: INSULIN DETEMIR (LEVEMIR) 100 UNIT/ML SYR SQ SCH (07:00)
[2020-05-22] MEDS: PIOGLITAZONE 30 MG TAB PO SCH (07:39)
[2020-05-22] MEDS: dexAMETHasone 2 MG TAB PO SCH (07:39)
[2020-05-22] MEDS: ASPIRIN 81 MG PO SCH (07:39)
[2020-05-22] MEDS: CLOPIDOGREL 75 MG TAB PO SCH (07:40)
[2020-05-22] MEDS: FAMOTIDINE 20 MG TAB PO SCH (07:40)
[2020-05-22] MEDS: ZINC SULFATE 220 MG CAP PO SCH (07:40)
[2020-05-22] MEDS: ASCORBIC ACID 500 MG TAB PO SCH (07:40)
[2020-05-22] MEDS: METOPROLOL SUCCINATE (ER) 50 MG TAB.ER.24H PO SCH (07:40)
[2020-05-22] MEDS: glipiZIDE 10 MG TAB PO SCH ×2 (07:40→20:22)
[2020-05-22] MEDS: ATORVASTATIN 80 MG TAB PO SCH (07:40)
[2020-05-22 07:41] LABS: Glucose,Whole Blood >600 mg/dL (75-99)
[2020-05-22] MEDS: INSULIN ASPART (NovoLOG) 100 UNIT/ML VIAL SQ SCH ×4 (07:41→20:21)
[2020-05-22 07:43] LABS: Glucose,Whole Blood 321 mg/dL (75-99)
[2020-05-22 08:01] LABS: Glucose,Whole Blood 300 mg/dL (75-99)
[2020-05-22] MEDS ORDERED: ENOXAPARIN 40 MG/0.4 ML SYRINGE SQ SCH (09:00)
[2020-05-22 09:51] LABS: Anion Gap 7.7 mmol/L (4.00-12.00); BUN/Creat Ratio 36.11 Ratio (12.00-20.00); Calcium 8.8 mg/dL (8.7-10.3); Carbon Dioxide 24.3 mmol/L (21.6-31.8); Non-African American GFR(CKD) 34.5 (60.0-200.0); Potassium 5.1 mmol/L (3.5-5.5)
[2020-05-22 12:07] LABS: Glucose,Whole Blood 266 mg/dL (75-99)
--- NOTE | 2020-05-22 14:09 | P.PN ---
Subjective 80-year-old male who presents emergency Department stating that he has had shortness of breath and feeling fatigued for at least 2 weeks. Patient states he has had exposure to COVID . Patient states he has had a fever. Patient states she's also states and smile. Patient also states she's had diarrhea. Patient denies any chest pain or palpitations. Patient denies any abdominal pain patient denies nausea vomiting diarrhea. According to EMS with the patient was coming in he was satting in the low 80s. Patient is currently on a few liters of oxygen and sat in mid 90s. Patient is a diabetic and has high blood pressure. Patient also has a pacemaker. Patient is presently on 2 L of oxygen was requiring 4 L yesterday. Patient was started on IV fluids patient creatinine went up to 1.6 baseline is around 1. Patient's blood sugars are highly elevated. Patient tests positive for Covid. 05/22/2020 Patient is presently on 2 L of oxygen appears to be doing better possibility of discharge tomorrow. Creatinine went up a bit to 1.6 baseline is around the 1. Patient was started on IV fluids will recheck the basic metabolic profile t omorrow. Constitutional: Denied any fatigue denied any fever. Cardio vascular: denied any chest pain, palpitations Gastrointestinal denied any nausea vomiting Pulmonary: Denied any shortness of breath cough Neurologic denied any new focal deficits All inpatient medications were reviewed and appropriate changes in these medications as dictated in the interval history and assessment and plan. Objective - Vital Signs Vital signs: Vital Signs Temp 98.2 F 05/22/20 11:38 Pulse 65 05/22/20 11:38 Resp 16 05/22/20 11:38 BP 131/63 05/22/20 11:38 Pulse Ox 90 L 05/22/20 11:38 Intake & Output 05/21/20 05/22/20 05/22/20 18:59 06:59 18:59 Other: Voiding Method Toilet Toilet Toilet # Voids 1 # Bowel Movements 1 1 - Exam PHYSICAL EXAMINATION: GENERAL: The patient is alert and oriented x3, not in any acute distress. Obese HEENT: Pupils are round and equally reacting to light. EOMI. No scleral icterus. No conjunctival pallor. Normocephalic, atraumatic. No pharyngeal erythema. No thyromegaly. CARDIOVASCULAR: S1 and S2 present. No murmurs, rubs, or gallops. PULMONARY: Chest is clear to auscultation, no wheezing or crackles. ABDOMEN: Soft, nontender, nondistended, normoactive bowel sounds. No palpable organomegaly. MUSCULOSKELETAL: No joint swelling or deformity. EXTREMITIES: No cyanosis, clubbing, or pedal edema. NEUROLOGICAL: Gross neurological examination did not reveal any focal deficits. SKIN: No rashes. Note: Because of COVID 19 isolation, some of the history and physical exam findings are indirect and obtained from nursing staff, and other physician examinations to avoid unnecessary contact with the patient. - Labs CBC & Chem 7: 05/20/20 19:34 05/22/20 06:26 Labs: Abnormal Lab Results - Last 24 Hours (Table) 05/21/20 05/21/20 05/22/20 Range/Units 17:17 20:31 06:26 BUN 65.0 H (9.0-27.0) mg/dL Creatinine 1.8 H (0.6-1.5) mg/dL Est GFR (CKD-EPI)AfAm 40.0 L (60.0-200.0) Est GFR (CKD-EPI)NonAf 34.5 L (60.0-200.0) BUN/Creatinine Ratio 36.11 H (12.00-20.00) Ratio Glucose 320 H (70-110) mg/dL POC Glucose (mg/dL) 450 H 437 H (75-99) mg/dL 05/22/20 05/22/20 05/22/20 Range/Units 07:40 07:42 07:49 BUN (9.0-27.0) mg/dL Creatinine (0.6-1.5) mg/dL Est GFR (CKD-EPI)AfAm (60.0-200.0) Est GFR (CKD-EPI)NonAf (60.0-200.0) BUN/Creatinine Ratio (12.00-20.00) Ratio Glucose (70-110) mg/dL POC Glucose (mg/dL) >600 H 321 H 300 H (75-99) mg/dL 05/22/20 Range/Units 12:06 BUN (9.0-27.0) mg/dL Creatinine (0.6-1.5) mg/dL Est GFR (CKD-EPI)AfAm (60.0-200.0) Est GFR (CKD-EPI)NonAf (60.0-200.0) BUN/Creatinine Ratio (12.00-20.00) Ratio Glucose (70-110) mg/dL POC Glucose (mg/dL) 266 H (75-99) mg/dL Microbiology - Last 24 Hours (Table) 05/20/20 19:15 Blood Culture - Preliminary Blood No Growth after 24 hours 05/20/20 19:34 Blood Culture - Preliminary Blood No Growth after 24 hours Assessment and Plan Plan: -acute hypoxic respiratory failure: Secondary to covid 19 pneumonia patient will be can you done Decadron. Will be can you done Covid vitamins. Monitor inflammatory markers. It appears to have improvement competitors to possibility of discharge tomorrow -Type 2 diabetes mellitus uncontrolled elevated blood sugars secondary to systemic steroids metformin is held because of his the elevated creatinine. Patient was started on insulin. We'll also await hemoglobin A1c most probably will require insulin even if he is not on systemic steroids as per the patient his blood sugars are well controlled at home -Hypotonic hyponatremia continue with IV fluids -Acute renal failure secondary to Covid 19: Patient will be continued on IV fluids -Hypertension -DVT subcutaneous heparin
--- NOTE | 2020-05-22 16:18 | P.PN ---
Subjective Progress Note Date: 05/22/20 Principal diagnosis: COVID 19 80-year-old male, who was brought to the emergency department by EMS. The patient apparently has had 2 weeks' worth of increasing shortness of breath, and significant fatigue. The patient also had chest congestion. He had a fever. The patient states that he is just not been feeling well and getting progressively worse. He also apparently had an episode or 2 of diarrhea. The patient denied any chest pain or chest pressure or palpitations. The patient also denied nausea, vomiting, and abdominal pain. Apparently when EMS arrived, the patient's saturations were in the low 80s on room air. For that reason, he was transported in, evaluated, and admitted with a diagnosis of COVID 19 19 pneumonia. The patient does have a history of diabetes, hypertension, and a previous pacemaker insertion. White count was 4.6, hemoglobin 12.5, hematocrit 37.1, and platelet count 153,000. PT, INR, and PTT were all normal. D-dimer was 0.77. Sodium 136, potassium 4.5, chlorides 102, CO2 26, anion gap 8, BUN 47, and creatinine 1.63. Ferritin was 985, LDH 818, C-reactive protein 58, and pro-calcitonin level was 0.12. Chest x-ray did show some interstitial infiltrates. On 05/22/2020 patient seen in follow-up on medical floor. he is on 2 L of oxygen his pulse ox is 90-94%, breathing comfortably, no fever or chills, blood pressure has been stable. Denies any worsening dyspnea or hypoxemia, he has a mild cough, no chest discomfort. He continues on oral Decadron 6 mg daily, IV hydration, vitamins, d-dimer was low at 0.77, patient is on subcu heparin for DVT prophylaxis, pro-calcitonin level was low, inflammatory markers were not significantly elevated on admission. Clinically symptoms have not progressed, and patient will be considered for discharge in next 24 hours. Objective - Vital Signs Vital signs: Vital Signs Temp 97.8 F 05/22/20 15:38 Pulse 64 05/22/20 15:38 Resp 16 05/22/20 15:38 BP 135/71 05/22/20 15:38 Pulse Ox 92 L 05/22/20 15:38 Intake & Output 05/21/20 05/22/20 05/22/20 18:59 06:59 18:59 Other: Voiding Method Toilet Toilet Toilet # Voids 1 # Bowel Movements 1 1 - Exam GENERAL EXAM: Alert, pleasant, 80-year-old white male is of oxygen with a pulse ox of 90-94% comfortable in no apparent distress. HEAD: Normocephalic/atraumatic. EYES: Normal reaction of pupils, equal size. Conjunctiva pink, sclera white. NOSE: Clear with pink turbinates. THROAT: No erythema or exudates. NECK: No masses, no JVD, no thyroid enlargement, no adenopathy. CHEST: No chest wall deformity. Symmetrical expansion. LUNGS: Equal air entry with no crackles, wheeze, rhonchi or dullness. CVS: Regular rate and rhythm, normal S1 and S2, no gallops, no murmurs, no rubs ABDOMEN: Soft, nontender. No hepatosplenomegaly, normal bowel sounds, no guarding or rigidity. EXTREMITIES: No clubbing, no edema, no cyanosis, 2+ pulses and upper and lower extremities. MUSCULOSKELETAL: Muscle strength and tone normal. SPINE: No scoliosis or deformity SKIN: No rashes CENTRAL NERVOUS SYSTEM: Alert and oriented -3. No focal deficits, tone is normal in all 4 extremities. PSYCHIATRIC: Alert and oriented -3. Appropriate affect. Intact judgment and insight. - Labs CBC & Chem 7: 05/20/20 19:34 05/22/20 06:26 Labs: Abnormal Lab Results - Last 24 Hours (Table) 05/21/20 05/21/20 05/22/20 Range/Units 17:17 20:31 06:26 BUN 65.0 H (9.0-27.0) mg/dL Creatinine 1.8 H (0.6-1.5) mg/dL Est GFR (CKD-EPI)AfAm 40.0 L (60.0-200.0) Est GFR (CKD-EPI)NonAf 34.5 L (60.0-200.0) BUN/Creatinine Ratio 36.11 H (12.00-20.00) Ratio Glucose 320 H (70-110) mg/dL POC Glucose (mg/dL) 450 H 437 H (75-99) mg/dL 05/22/20 05/22/20 05/22/20 Range/Units 07:40 07:42 07:49 BUN (9.0-27.0) mg/dL Creatinine (0.6-1.5) mg/dL Est GFR (CKD-EPI)AfAm (60.0-200.0) Est GFR (CKD-EPI)NonAf (60.0-200.0) BUN/Creatinine Ratio (12.00-20.00) Ratio Glucose (70-110) mg/dL POC Glucose (mg/dL) >600 H 321 H 300 H (75-99) mg/dL 05/22/20 Range/Units 12:06 BUN (9.0-27.0) mg/dL Creatinine (0.6-1.5) mg/dL Est GFR (CKD-EPI)AfAm (60.0-200.0) Est GFR (CKD-EPI)NonAf (60.0-200.0) BUN/Creatinine Ratio (12.00-20.00) Ratio Glucose (70-110) mg/dL POC Glucose (mg/dL) 266 H (75-99) mg/dL Microbiology - Last 24 Hours (Table) 05/20/20 19:15 Blood Culture - Preliminary Blood No Growth after 24 hours 05/20/20 19:34 Blood Culture - Preliminary Blood No Growth after 24 hours Assessment and Plan Plan: Assessment: #1. Acute hypoxic respiratory failure secondary to quit drinking pneumonia, she was not a candidate for Remdesivir, Tocilizumab or convalescent plasma #2. History of diabetes mellitus type 2 #3. History of hypertension #4. History of chronic sinus disease #5. History of diverticulitis, status post bowel resection Plan: Continue current medical treatment, continue vitamin cocktail, continue Decadron IV hydration, if there is no worsening dyspnea or hypoxia, patient may be considered for discharge home in the next 24 hours. We'll obtain follow-up inflammatory markers in follow-up d-dimer. I performed a history & physical examination of the patient and discussed their management with my nurse practitioner, Kay Buchanan. I reviewed the nurse practitioner's note and agree with the documented findings and plan of care. Lung sounds are positive for dim breath sounds throughout the lung waller. The findings and the impression was discussed with the patient. I attest to the d ocumentation by the nurse practitioner. Time with Patient: Less than 30
[2020-05-22 17:27] LABS: Glucose,Whole Blood 353 mg/dL (75-99)
[2020-05-22] MEDS: HEPARIN SODIUM,PORCINE 5,000 UNIT/ML 1 ML VIAL SQ SCH (17:48)
[2020-05-22] MEDS: SODIUM CHLORIDE 0.9% 1,000 ML IV SCH ×2 (17:48→23:32)
[2020-05-22 19:56] LABS: Glucose,Whole Blood 368 mg/dL (75-99)
[2020-05-22] MEDS: INSULIN DETEMIR (LEVEMIR) 100 UNIT/ML SYR SQ SCH (21:38)
[2020-05-23] MEDS: HEPARIN SODIUM,PORCINE 5,000 UNIT/ML 1 ML VIAL SQ SCH ×3 (00:14→17:15)
[2020-05-23 06:40] LABS: African American GFR (CKD) 66 (>60 ml/min/1.73 sqM); Anion Gap 4 mmol/L; Blood Urea Nitrogen 47 mg/dL (9-20); Carbon Dioxide 29 mmol/L (22-30); Chloride 110 mmol/L (98-107); Glucose 225 mg/dL (74-99); Non-African American GFR(CKD) 57 (>60 ml/min/1.73 sqM); Potassium 5.5 mmol/L (3.5-5.1); Sodium 143 mmol/L (137-145)
[2020-05-23 06:52] LABS: Glucose,Whole Blood 202 mg/dL (75-99)
[2020-05-23] MEDS: ZINC SULFATE 220 MG CAP PO SCH (07:38)
[2020-05-23] MEDS: glipiZIDE 10 MG TAB PO SCH ×2 (07:38→20:36)
[2020-05-23] MEDS: CLOPIDOGREL 75 MG TAB PO SCH (07:38)
[2020-05-23] MEDS: dexAMETHasone 2 MG TAB PO SCH (07:38)
[2020-05-23] MEDS: FAMOTIDINE 20 MG TAB PO SCH (07:38)
[2020-05-23] MEDS: ASPIRIN 81 MG PO SCH (07:38)
[2020-05-23] MEDS: ASCORBIC ACID 500 MG TAB PO SCH (07:39)
[2020-05-23] MEDS: ATORVASTATIN 80 MG TAB PO SCH (07:39)
[2020-05-23] MEDS: METOPROLOL SUCCINATE (ER) 50 MG TAB.ER.24H PO SCH (07:39)
[2020-05-23] MEDS: INSULIN ASPART (NovoLOG) 100 UNIT/ML VIAL SQ SCH ×3 (07:39→17:16)
[2020-05-23] MEDS: PIOGLITAZONE 30 MG TAB PO SCH (07:40)
[2020-05-23] MEDS ORDERED: SODIUM POLYSTYRENE SULFONATE 15 GM/60 ML BOTTLE PO STA (09:36)
[2020-05-23 11:42] LABS: Glucose,Whole Blood 255 mg/dL (75-99)
--- NOTE | 2020-05-23 13:19 | XR ---
EXAMINATION TYPE: XR chest 1V DATE OF EXAM: 05/23/2020 CLINICAL HISTORY: Difficulty breathing and covid pneumonia progress study. TECHNIQUE: Single AP portable upright view of the chest is obtained. COMPARISON: Chest x-ray from 3 days earlier FINDINGS: Chronic parenchymal change with multifocal opacities is redemonstrated. Opacities greatest in the lower lungs lung periphery left mid to lower lung and right upper lungs. Stable mild cardiomeg nakul with dual lead pacemaker and atherosclerotic change thoracic aorta. Multilevel spurring thoracic spine. IMPRESSION: Bilateral multifocal opacities consistent with known covid infection, no significant neri ge from most recent x-ray.
--- NOTE | 2020-05-23 16:02 | P.PN ---
Subjective Progress Note Date: 05/23/20 80-year-old male who presents emergency Department stating that he has had shortness of breath and feeling fatigued for at least 2 weeks. Patient states he has had exposure to COVID . Patient states he has had a fever. Patient states she's also states and smile. Patient also states she's had diarrhea. Patient denies any chest pain or palpitations. Patient denies any abdominal pain patient denies nausea vomiting diarrhea. According to EMS with the patient was coming in he was satting in the low 80s. Patient is currently on a few liters of oxygen and sat in mid 90s. Patient is a diabetic and has high blood pressure. Patient also has a pacemaker. Patient is presently on 2 L of oxygen was requiring 4 L yesterday. Patient was started on IV fluids patient creatinine went up to 1.6 baseline is around 1. Patient's blood sugars are highly elevated. Patient tests positive for Covid. 05/22/2020 Patient is presently on 2 L of oxygen appears to be doing better possibility of discharge tomorrow. Creatinine went up a bit to 1.6 baseline is around the 1. Patient was started on IV fluids will recheck the basic metabolic profile tomorrow. 05/23/2020 Patient seen and evaluated in follow-up continues to be on 2 L of oxygen and becomes dyspneic with exertion. Patient states he does not know wear oxygen at home. Pulmonary is following. Patient's blood sugars are elevated and will continue sliding scale at this time as patient is on steroids. Potassium was found to be slightly elevated at 5.5 and was given a dose of Kayexalate. Will repeat a.m. labs. Instructed and encouraged the patient to get up and increase activity as tolerated. Constitutional: Denied any fatigue denied any fever. Cardio vascular: denied any chest pain, palpitations Gastrointestinal denied any nausea vomiting Pulmonary: Denied any shortness of breath cough Neurologic denied any new focal deficits All inpatient medications were reviewed and appropriate changes in these medications as dictated in the interval history and assessment and plan. Objective - Vital Signs Vital signs: Vital Signs Temp 98.2 F 05/23/20 10:00 Pulse 74 05/23/20 10:00 Resp 18 05/23/20 10:00 BP 143/70 05/23/20 10:00 Pulse Ox 92 L 05/23/20 10:00 Intake & Output 05/22/20 05/23/20 05/23/20 18:59 06:59 18:59 Output Total 375 Balance -375 Output: Urine 375 Other: Voiding Method Toilet Toilet Toilet # Voids 3 3 # Bowel Movements 1 1 - Exam GENERAL: The patient is alert and oriented x3, not in any acute distress. Obese HEENT: Pupils are round and equally reacting to light. EOMI. No scleral icterus. No conjunctival pallor. Normocephalic, atraumatic. No pharyngeal erythema. No thyromegaly. CARDIOVASCULAR: S1 and S2 present. No murmurs, rubs, or gallops. PULMONARY: Chest is clear to auscultation, no wheezing or crackles. ABDOMEN: Soft, nontender, nondistended, normoactive bowel sounds. No palpable organomegaly. MUSCULOSKELETAL: No joint swelling or deformity. EXTREMITIES: No cyanosis, clubbing, or pedal edema. NEUROLOGICAL: Gross neurological examination did not reveal any focal deficits. SKIN: No rashes. - Labs CBC & Chem 7: 05/20/20 19:34 05/23/20 06:05 Labs: Abnormal Lab Results - Last 24 Hours (Table) 05/22/20 05/22/20 05/23/20 Range/Units 17:24 19:53 06:05 Potassium 5.5 H (3.5-5.1) mmol/L Chloride 110 H (98-107) mmol/L BUN 47 H (9-20) mg/dL Glucose 225 H (74-99) mg/dL POC Glucose (mg/dL) 353 H 368 H (75-99) mg/dL 05/23/20 05/23/20 Range/Units 06:51 11:40 Potassium (3.5-5.1) mmol/L Chloride (98-107) mmol/L BUN (9-20) mg/dL Glucose (74-99) mg/dL POC Glucose (mg/dL) 202 H 255 H (75-99) mg/dL Microbiology - Last 24 Hours (Table) 05/20/20 19:34 Blood Culture - Preliminary Blood No Growth after 48 hours 05/20/20 19:15 Blood Culture - Preliminary Blood No Growth after 48 hours Assessment and Plan Assessment: -acute hypoxic respiratory failure: Secondary to covid 19 pneumonia patient maintained on Decadron and vitamin and zinc supplements. Monitor inflammatory markers. Patient continues on 2 L of oxygen and discussed with nursing staff prior to his tolerated. -Type 2 diabetes mellitus uncontrolled elevated blood sugars secondary to systemic steroids metformin is held because of his the elevated creatinine. Patient was started on insulin. We'll also await hemoglobin A1c most probably will require insulin even if he is not on systemic steroids as per the patient his blood sugars are not well controlled at home -Hyperkalemia, potassium was 5.5 and given a dose of Kayexalate and will repeat a.m. labs -Hypotonic hyponatremia, improved -Acute renal failure secondary to Covid 19: Improved, current creatinine is 1.19 -Hypertension -DVT subcutaneous heparin Plan: Continue with current medications. IV fluids have been discontinued. Will continue with dexamethasone along with vitamin and zinc supplements. Repeat inflammatory markers in the morning along with d-dimer. Patient continues to require 2 L of oxygen and discussed with nursing staff about weaning FiO2 as tolerated. Continue with sliding scale as blood sugars have been elevated and patient is on steroids. Will repeat a.m. labs as well is potassium was elevated today and given a dose of Kayexalate. Will add incentive spirometer and instructed the patient to increase activity as tolerated. Possible discharge in 24-48 hours.
[2020-05-23 16:46] LABS: Glucose,Whole Blood 309 mg/dL (75-99)
--- NOTE | 2020-05-23 17:09 | P.PN ---
Subjective Progress Note Date: 05/23/20 Principal diagnosis: CoVID 19 pneumonia 80-year-old male, who was brought to the emergency department by EMS. The patient apparently has had 2 weeks' worth of increasing shortness of breath, and significant fatigue. The patient also had chest congestion. He had a fever. The patient states that he is just not been feeling well and getting progressively worse. He also apparently had an episode or 2 of diarrhea. The patient denied any chest pain or chest pressure or palpitations. The patient also denied nausea, vomiting, and abdominal pain. Apparently when EMS arrived, the patient's saturations were in the low 80s on room air. For that reason, he was transported in, evaluated, and admitted with a diagnosis of COVID 19 19 pneumonia. The patient does have a history of diabetes, hypertension, and a previous pacemaker insertion. White count was 4.6, hemoglobin 12.5, hematocrit 37.1, and platelet count 153,000. PT, INR, and PTT were all normal. D-dimer was 0.77. Sodium 136, potassium 4.5, chlorides 102, CO2 26, anion gap 8, BUN 47, and creatinine 1.63. Ferritin was 985, LDH 818, C-reactive protein 58, and pro-calcitonin level was 0.12. Chest x-ray did show some interstitial infiltrates. On 05/22/2020 patient seen in follow-up on medical floor. he is on 2 L of oxygen his pulse ox is 90-94%, breathing comfortably, no fever or chills, blood pressure has been stable. Denies any worsening dyspnea or hypoxemia, he has a mild cough, no chest discomfort. He continues on oral Decadron 6 mg daily, IV hydration, vitamins, d-dimer was low at 0.77, patient is on subcu heparin for DVT prophylaxis, pro-calcitonin level was low, inflammatory markers were not significantly elevated on admission. Clinically symptoms have not progressed, and patient will be considered for discharge in next 24 hours. The patient is seen today 05/23/2020 in follow-up on the regular medical floor. He is currently sitting up in chair at the bedside. Awake and alert in no acute distress. Continue O2 saturations in the low 90s on 2 L/m per nasal cannula. Afebrile. Hemodynamically stable. Blood cultures reveal no growth. Blood glucose 202. Sodium 143. Potassium 5.5. Creatinine 1.19. He remains on dexamethasone, so continues heparin, vitamin supplements. Chest x-ray continues to show bilateral multifocal opacities consistent with CoVID infection. No neri ge. Objective - Vital Signs Vital signs: Vital Signs Temp 98.0 F 05/23/20 14:00 Pulse 63 05/23/20 14:00 Resp 18 05/23/20 14:00 BP 127/63 05/23/20 14:00 Pulse Ox 90 L 05/23/20 14:00 Intake & Output 05/22/20 05/23/20 05/23/20 18:59 06:59 18:59 Output Total 375 Balance -375 Output: Urine 375 Other: Voiding Method Toilet Toilet Toilet # Voids 3 3 # Bowel Movements 1 1 - Exam GENERAL EXAM: Alert, pleasant, 80-year-old male patient, on 2 L of oxygen is of oxygen with a pulse ox of 90% comfortable in no apparent distress. HEAD: Normocephalic/atraumatic. EYES: Normal reaction of pupils, equal size. Conjunctiva pink, sclera white. NOSE: Clear with pink turbinates. THROAT: No erythema or exudates. NECK: No masses, no JVD, no thyroid enlargement, no adenopathy. CHEST: No chest wall deformity. Symmetrical expansion. LUNGS: Equal air entry with bibasilar coarse crackles CVS: Regular rate and rhythm, normal S1 and S2, no gallops, no murmurs, no rubs ABDOMEN: Soft, nontender. No hepatosplenomegaly, normal bowel sounds, no gu arding or rigidity. EXTREMITIES: No clubbing, no edema, no cyanosis, 2+ pulses and upper and lower e xtremities. MUSCULOSKELETAL: Muscle strength and tone normal. SPINE: No scoliosis or deformity SKIN: No rashes CENTRAL NERVOUS SYSTEM: No focal deficits, tone is normal in all 4 extremities. PSYCHIATRIC: Alert and oriented -3. Appropriate affect. Intact judgment and insight. - Labs CBC & Chem 7: 05/20/20 19:34 05/23/20 06:05 Labs: Abnormal Lab Results - Last 24 Hours (Table) 05/22/20 05/22/20 05/23/20 Range/Units 17:24 19:53 06:05 Potassium 5.5 H (3.5-5.1) mmol/L Chloride 110 H (98-107) mmol/L BUN 47 H (9-20) mg/dL Glucose 225 H (74-99) mg/dL POC Glucose (mg/dL) 353 H 368 H (75-99) mg/dL 05/23/20 05/23/20 05/23/20 Range/Units 06:51 11:40 16:42 Potassium (3.5-5.1) mmol/L Chloride (98-107) mmol/L BUN (9-20) mg/dL Glucose (74-99) mg/dL POC Glucose (mg/dL) 202 H 255 H 309 H (75-99) mg/dL Microbiology - Last 24 Hours (Table) 05/20/20 19:34 Blood Culture - Preliminary Blood No Growth after 48 hours 05/20/20 19:15 Blood Culture - Preliminary Blood No Growth after 48 hours Assessment and Plan Assessment: 1 Acute hypoxic respiratory failure secondary to quit drinking pneumonia, she was not a candidate for Remdesivir, Tocilizumab or convalescent plasma 2 History of diabetes mellitus type 2 3 History of hypertension 4 History of chronic sinus disease 5 History of diverticulitis, status post bowel resection Plan: The patient was seen and evaluated by Dr. Koenig Chest x-ray and labs reviewed Continue the current treatment plan Increase his activity as tolerated We'll continue to follow I, the cosigning physician, performed a history & physical examination of the patient. Lungs sounds crackles in the bilateral posterior bases. Maintaining good O2 saturations in the 90s on 2 L/m per nasal cannula. I discussed the assessment and plan of care with my nurse practitioner, Krupa Alarcon. I attest to the above note as dictated by her.
[2020-05-23 20:00] LABS: Glucose,Whole Blood 361 mg/dL (75-99)
[2020-05-23] MEDS: INSULIN DETEMIR (LEVEMIR) 100 UNIT/ML SYR SQ SCH (20:38)
[2020-05-24] MEDS: INSULIN ASPART (NovoLOG) 100 UNIT/ML VIAL SQ SCH ×5 (00:11→20:52)
[2020-05-24] MEDS: HEPARIN SODIUM,PORCINE 5,000 UNIT/ML 1 ML VIAL SQ SCH ×3 (00:36→17:10)
[2020-05-24 07:07] LABS: Glucose,Whole Blood 227 mg/dL (75-99)
[2020-05-24] MEDS: CLOPIDOGREL 75 MG TAB PO SCH (07:51)
[2020-05-24] MEDS: FAMOTIDINE 20 MG TAB PO SCH (07:51)
[2020-05-24] MEDS: ASCORBIC ACID 500 MG TAB PO SCH (07:51)
[2020-05-24] MEDS: dexAMETHasone 2 MG TAB PO SCH (07:51)
[2020-05-24] MEDS: ASPIRIN 81 MG PO SCH (07:51)
[2020-05-24] MEDS: ATORVASTATIN 80 MG TAB PO SCH (07:52)
[2020-05-24] MEDS: PIOGLITAZONE 30 MG TAB PO SCH (07:52)
[2020-05-24] MEDS: METOPROLOL SUCCINATE (ER) 50 MG TAB.ER.24H PO SCH (07:52)
[2020-05-24] MEDS: glipiZIDE 10 MG TAB PO SCH ×2 (07:52→20:53)
[2020-05-24] MEDS: ZINC SULFATE 220 MG CAP PO SCH (07:52)
[2020-05-24 11:41] LABS: Glucose,Whole Blood 202 mg/dL (75-99)
[2020-05-24 12:33] LABS: African American GFR (CKD) 59.3 (60.0-200.0); Anion Gap 5.9 mmol/L (4.00-12.00); BUN/Creat Ratio 32.31 Ratio (12.00-20.00); C Reactive Protein 4.4 mg/dL (0.0-0.8); Calcium 9.1 mg/dL (8.7-10.3); Carbon Dioxide 29.1 mmol/L (21.6-31.8); Non-African American GFR(CKD) 51.2 (60.0-200.0); Potassium 5.1 mmol/L (3.5-5.5)
--- NOTE | 2020-05-24 15:34 | P.PN ---
Subjective Progress Note Date: 05/24/20 Principal diagnosis: CoVID 19 pneumonia 80-year-old male, who was brought to the emergency department by EMS. The patient apparently has had 2 weeks' worth of increasing shortness of breath, and significant fatigue. The patient also had chest congestion. He had a fever. The patient states that he is just not been feeling well and getting progressively worse. He also apparently had an episode or 2 of diarrhea. The patient denied any chest pain or chest pressure or palpitations. The patient also denied nausea, vomiting, and abdominal pain. Apparently when EMS arrived, the patient's saturations were in the low 80s on room air. For that reason, he was transported in, evaluated, and admitted with a diagnosis of COVID 19 19 pneumonia. The patient does have a history of diabetes, hypertension, and a previous pacemaker insertion. White count was 4.6, hemoglobin 12.5, hematocrit 37.1, and platelet count 153,000. PT, INR, and PTT were all normal. D-dimer was 0.77. Sodium 136, potassium 4.5, chlorides 102, CO2 26, anion gap 8, BUN 47, and creatinine 1.63. Ferritin was 985, LDH 818, C-reactive protein 58, and pro-calcitonin level was 0.12. Chest x-ray did show some interstitial infiltrates. On 05/22/2020 patient seen in follow-up on medical floor. he is on 2 L of oxygen his pulse ox is 90-94%, breathing comfortably, no fever or chills, blood pressure has been stable. Denies any worsening dyspnea or hypoxemia, he has a mild cough, no chest discomfort. He continues on oral Decadron 6 mg daily, IV hydration, vitamins, d-dimer was low at 0.77, patient is on subcu heparin for DVT prophylaxis, pro-calcitonin level was low, inflammatory markers were not significantly elevated on admission. Clinically symptoms have not progressed, and patient will be considered for discharge in next 24 hours. The patient is seen today 05/23/2020 in follow-up on the regular medical floor. He is currently sitting up in chair at the bedside. Awake and alert in no acute distress. Continue O2 saturations in the low 90s on 2 L/m per nasal cannula. Afebrile. Hemodynamically stable. Blood cultures reveal no growth. Blood glucose 202. Sodium 143. Potassium 5.5. Creatinine 1.19. He remains on dexamethasone, so continues heparin, vitamin supplements. Chest x-ray continues to show bilateral multifocal opacities consistent with CoVID infection. No neri ge. The patient is seen today 05/24/2020 in follow-up on the regular medical floor. He is currently resting comfortably in bed. Awake and alert in no acute distress. He is maintaining O2 saturations in the 90s on 2 L/m per nasal cannula. He's been on dexamethasone, vitamin supplements, subcutaneous heparin. No worsening shortness of breath, cough or congestion. D-dimer 1.02. Sodium 145. Potassium 5.1. Creatinine 1.3. LDH 485. C-reactive protein 4.4. Objective - Vital Signs Vital signs: Vital Signs Temp 97.6 F 05/24/20 09:32 Pulse 59 L 05/24/20 09:32 Resp 18 05/24/20 09:32 BP 143/58 05/24/20 09:32 Pulse Ox 91 L 05/24/20 11:46 Intake & Output 05/23/20 05/24/20 05/24/20 18:59 06:59 18:59 Output Total 300 Balance -300 Output: Urine 300 Other: Voiding Method Toilet Toilet Toilet # Voids 3 # Bowel Movements 2 - Exam GENERAL EXAM: Alert, pleasant, 80-year-old male patient, on 2 L of oxygen is of oxygen with a pulse ox of 91% comfortable in no apparent distress. HEAD: Normocephalic/atraumatic. EYES: Normal reaction of pupils, equal size. Conjunctiva pink, sclera white. NOSE: Clear with pink turbinates. THROAT: No erythema or exudates. NECK: No masses, no JVD, no thyroid enlargement, no adenopathy. CHEST: No chest wall deformity. Symmetrical expansion. LUNGS: Equal air entry with bibasilar coarse crackles CVS: Regular rate and rhythm, normal S1 and S2, no gallops, no murmurs, no rubs ABDOMEN: Soft, nontender. No hepatosplenomegaly, normal bowel sounds, no guarding or rigidity. EXTREMITIES: No clubbing, no edema, no cyanosis, 2+ pulses and upper and lower extremities. MUSCULOSKELETAL: Muscle strength and tone normal. SPINE: No scoliosis or deformity SKIN: No rashes CENTRAL NERVOUS SYSTEM: No focal deficits, tone is normal in all 4 extremities. PSYCHIATRIC: Alert and oriented -3. Appropriate affect. Intact judgment and insight. - Labs CBC & Chem 7: 05/20/20 19:34 05/24/20 07:08 Labs: Abnormal Lab Results - Last 24 Hours (Table) 05/23/20 05/23/20 05/24/20 Range/Units 16:42 19:58 07:04 D-Dimer (<0.60) mg/L FEU Chloride (96-109) mmol/L BUN (9.0-27.0) mg/dL Est GFR (CKD-EPI)AfAm (60.0-200.0) Est GFR (CKD-EPI)NonAf (60.0-200.0) BUN/Creatinine Ratio (12.00-20.00) Ratio Glucose (70-110) mg/dL POC Glucose (mg/dL) 309 H 361 H 227 H (75-99) mg/dL Lactate Dehydrogenase (120-246) U/L C-Reactive Protein (0.0-0.8) mg/dL 05/24/20 05/24/20 05/24/20 Range/Units 07:08 07:08 11:39 D-Dimer 1.02 H (<0.60) mg/L FEU Chloride 110 H (96-109) mmol/L BUN 42.0 H (9.0-27.0) mg/dL Est GFR (CKD-EPI)AfAm 59.3 L (60.0-200.0) Est GFR (CKD-EPI)NonAf 51.2 L (60.0-200.0) BUN/Creatinine Ratio 32.31 H (12.00-20.00) Ratio Glucose 221 H (70-110) mg/dL POC Glucose (mg/dL) 202 H (75-99) mg/dL Lactate Dehydrogenase 485 H (120-246) U/L C-Reactive Protein 4.4 H (0.0-0.8) mg/dL Microbiology - Last 24 Hours (Table) 05/20/20 19:34 Blood Culture - Preliminary Blood No Growth after 72 hours 05/20/20 19:15 Blood Culture - Preliminary Blood No Growth after 72 hours Assessment and Plan Assessment: 1 Acute hypoxic respiratory failure secondary to quit drinking pneumonia, he was not a candidate for Remdesivir, Tocilizumab or convalescent plasma 2 History of diabetes mellitus type 2 3 History of hypertension 4 History of chronic sinus disease 5 History of diverticulitis, status post bowel resection Plan: The patient was seen and evaluated by Dr. Koenig The patient could be discharged home today Evaluated for possible home oxygen We will see as needed I, the cosigning physician, performed a history & physical examination of the patient. Lungs sounds crackles in the bilateral posterior bases. Maintaining good O2 saturations in the 90s on 2 L/m per nasal cannula. I discussed the assessment and plan of care with my nurse practitioner, Krupa Alarcon. I attest to the above note as dictated by her.
[2020-05-24 16:48] LABS: Glucose,Whole Blood 326 mg/dL (75-99)
--- NOTE | 2020-05-24 16:55 | P.PN ---
Subjective 80-year-old male who presents emergency Department stating that he has had shortness of breath and feeling fatigued for at least 2 weeks. Patient states he has had exposure to COVID . Patient states he has had a fever. Patient states she's also states and smile. Patient also states she's had diarrhea. Patient denies any chest pain or palpitations. Patient denies any abdominal pain patient denies nausea vomiting diarrhea. According to EMS with the patient was coming in he was satting in the low 80s. Patient is currently on a few liters of oxygen and sat in mid 90s. Patient is a diabetic and has high blood pressure. Patient also has a pacemaker. Patient is presently on 2 L of oxygen was requiring 4 L yesterday. Patient was started on IV fluids patient creatinine went up to 1.6 baseline is around 1. Patient's blood sugars are highly elevated. Patient tests positive for Covid. 05/22/2020 Patient is presently on 2 L of oxygen appears to be doing better possibility of discharge tomorrow. Creatinine went up a bit to 1.6 baseline is around the 1. Patient was started on IV fluids will recheck the basic metabolic profile to merari. 05/23/2020 Patient seen and evaluated in follow-up continues to be on 2 L of oxygen and bec omes dyspneic with exertion. Patient states he does not know wear oxygen at home. Pulmonary is following. Patient's blood sugars are elevated and will continue sliding scale at this time as patient is on steroids. Potassium was found to be slightly elevated at 5.5 and was given a dose of Kayexalate. Will repeat a.m. labs. Instructed and encouraged the patient to get up and increase activity as tolerated. 05/24/2020 Patient is presently in 2 does of hours and doing clinically well. Patient is on dexamethasone, vitamin supplements, subcutaneous heparin. No worsening shortness of breath, cough or congestion. D-dimer 1.02. Sodium 145. Potassium 5.1. Creatinine 1.3. LDH 485. C-reactive protein 4.4. His creatinine actually went up a little bit from 1.19-1.3 Constitutional: Denied any fatigue denied any fever. Cardio vascular: denied any chest pain, palpitations Gastrointestinal denied any nausea vomiting Pulmonary: Denied any shortness of breath cough Neurologic denied any new focal deficits All inpatient medications were reviewed and appropriate changes in these medicat ions as dictated in the interval history and assessment and plan. Objective - Vital Signs Vital signs: Vital Signs Temp 97.6 F 05/24/20 09:32 Pulse 59 L 05/24/20 09:32 Resp 18 05/24/20 09:32 BP 143/58 05/24/20 09:32 Pulse Ox 91 L 05/24/20 11:46 Intake & Output 05/23/20 05/24/20 05/24/20 18:59 06:59 18:59 Output Total 300 Balance -300 Output: Urine 300 Other: Voiding Method Toilet Toilet Toilet # Voids 3 # Bowel Movements 2 - Exam PHYSICAL EXAMINATION: GENERAL: The patient is alert and oriented x3, not in any acute distress. Obese HEENT: Pupils are round and equally reacting to light. EOMI. No scleral icterus. No conjunctival pallor. Normocephalic, atraumatic. No pharyngeal erythema. No thyromegaly. CARDIOVASCULAR: S1 and S2 present. No murmurs, rubs, or gallops. PULMONARY: Chest is clear to auscultation, no wheezing or crackles. ABDOMEN: Soft, nontender, nondistended, normoactive bowel sounds. No palpable organomegaly. MUSCULOSKELETAL: No joint swelling or deformity. EXTREMITIES: No cyanosis, clubbing, or pedal edema. NEUROLOGICAL: Gross neurological examination did not reveal any focal deficits. SKIN: No rashes. Note: Because of COVID 19 isolation, some of the history and physical exam findings are indirect and obtained from nursing staff, and other physician examinations to avoid unnecessary contact with the patient. - Labs CBC & Chem 7: 05/20/20 19:34 05/24/20 07:08 Labs: Abnormal Lab Results - Last 24 Hours (Table) 05/23/20 05/24/20 05/24/20 Range/Units 19:58 07:04 07:08 D-Dimer (<0.60) mg/L FEU Chloride 110 H (96-109) mmol/L BUN 42.0 H (9.0-27.0) mg/dL Est GFR (CKD-EPI)AfAm 59.3 L (60.0-200.0) Est GFR (CKD-EPI)NonAf 51.2 L (60.0-200.0) BUN/Creatinine Ratio 32.31 H (12.00-20.00) Ratio Glucose 221 H (70-110) mg/dL POC Glucose (mg/dL) 361 H 227 H (75-99) mg/dL Lactate Dehydrogenase 485 H (120-246) U/L C-Reactive Protein 4.4 H (0.0-0.8) mg/dL 05/24/20 05/24/20 05/24/20 Range/Units 07:08 11:39 16:45 D-Dimer 1.02 H (<0.60) mg/L FEU Chloride (96-109) mmol/L BUN (9.0-27.0) mg/dL Est GFR (CKD-EPI)AfAm (60.0-200.0) Est GFR (CKD-EPI)NonAf (60.0-200.0) BUN/Creatinine Ratio (12.00-20.00) Ratio Glucose (70-110) mg/dL POC Glucose (mg/dL) 202 H 326 H (75-99) mg/dL Lactate Dehydrogenase (120-246) U/L C-Reactive Protein (0.0-0.8) mg/dL Microbiology - Last 24 Hours (Table) 05/20/20 19:34 Blood Culture - Preliminary Blood No Growth after 72 hours 05/20/20 19:15 Blood Culture - Preliminary Blood No Growth after 72 hours Assessment and Plan Plan: -acute hypoxic respiratory failure: Secondary to covid 19 pneumonia patient maintained on Decadron and vitamin and zinc supplements. Monitor inflammatory markers. Patient continues on 2 L of oxygen. -Type 2 diabetes mellitus uncontrolled elevated blood sugars -Hyperkalemia, potassium was 5.5 and given a dose of Kayexalate and will repeat a.m. labs -Hypovolemic hyponatremia, improved -Acute renal failure secondary to Covid 19: Improved, current creatinine is 1.3 -Hypertension -DVT subcutaneous heparin
[2020-05-24 20:51] LABS: Glucose,Whole Blood 409 mg/dL (75-99)
[2020-05-24] MEDS: INSULIN DETEMIR (LEVEMIR) 100 UNIT/ML SYR SQ SCH (20:52)
[2020-05-25] MEDS: HEPARIN SODIUM,PORCINE 5,000 UNIT/ML 1 ML VIAL SQ SCH ×4 (00:11→23:27)
[2020-05-25 07:12] LABS: Glucose,Whole Blood 200 mg/dL (75-99)
[2020-05-25] MEDS: ATORVASTATIN 80 MG TAB PO SCH (08:15)
[2020-05-25] MEDS: dexAMETHasone 2 MG TAB PO SCH (08:15)
[2020-05-25] MEDS: FAMOTIDINE 20 MG TAB PO SCH (08:15)
[2020-05-25] MEDS: ASPIRIN 81 MG PO SCH (08:15)
[2020-05-25] MEDS: CLOPIDOGREL 75 MG TAB PO SCH (08:15)
[2020-05-25] MEDS: ASCORBIC ACID 500 MG TAB PO SCH (08:15)
[2020-05-25] MEDS: INSULIN ASPART (NovoLOG) 100 UNIT/ML VIAL SQ SCH ×6 (08:15→20:49)
[2020-05-25] MEDS: PIOGLITAZONE 30 MG TAB PO SCH (08:15)
[2020-05-25] MEDS: glipiZIDE 10 MG TAB PO SCH ×2 (08:16→20:49)
[2020-05-25] MEDS: ZINC SULFATE 220 MG CAP PO SCH (08:16)
[2020-05-25] MEDS: METOPROLOL SUCCINATE (ER) 50 MG TAB.ER.24H PO SCH (08:16)
[2020-05-25 09:36] LABS: African American GFR (CKD) 65.3 (60.0-200.0); Anion Gap 5.1 mmol/L (4.00-12.00); BUN/Creat Ratio 30.83 Ratio (12.00-20.00); Carbon Dioxide 28.9 mmol/L (21.6-31.8); Non-African American GFR(CKD) 56.4 (60.0-200.0); Potassium 4.7 mmol/L (3.5-5.5)
--- NOTE | 2020-05-25 10:54 | P.PN ---
Subjective 80-year-old male who presents emergency Department stating that he has had shortness of breath and feeling fatigued for at least 2 weeks. Patient states he has had exposure to COVID . Patient states he has had a fever. Patient states she's also states and smile. Patient also states she's had diarrhea. Patient denies any chest pain or palpitations. Patient denies any abdominal pain patient denies nausea vomiting diarrhea. According to EMS with the patient was coming in he was satting in the low 80s. Patient is currently on a few liters of oxygen and sat in mid 90s. Patient is a diabetic and has high blood pressure. Patient also has a pacemaker. Patient is presently on 2 L of oxygen was requiring 4 L yesterday. Patient was started on IV fluids patient creatinine went up to 1.6 baseline is around 1. Patient's blood sugars are highly elevated. Patient tests positive for Covid. 05/22/2020 Patient is presently on 2 L of oxygen appears to be doing better possibility of discharge tomorrow. Creatinine went up a bit to 1.6 baseline is around the 1. Patient was started on IV fluids will recheck the basic metabolic profile to merari. 05/23/2020 Patient seen and evaluated in follow-up continues to be on 2 L of oxygen and bec omes dyspneic with exertion. Patient states he does not know wear oxygen at home. Pulmonary is following. Patient's blood sugars are elevated and will continue sliding scale at this time as patient is on steroids. Potassium was found to be slightly elevated at 5.5 and was given a dose of Kayexalate. Will repeat a.m. labs. Instructed and encouraged the patient to get up and increase activity as tolerated. 05/24/2020 Patient is presently in 2 does of hours and doing clinically well. Patient is on dexamethasone, vitamin supplements, subcutaneous heparin. No worsening shortness of breath, cough or congestion. D-dimer 1.02. Sodium 145. Potassium 5.1. Creatinine 1.3. LDH 485. C-reactive protein 4.4. His creatinine actually went up a little bit from 1.19-1.3 05/25/2020 Patient is fairly stable no significant improvement or worsening. Patient is still on 2 L of oxygen. We'll monitor him 1 more night. Continues to require oxygen patient probably can be discharged on 2 L tomorrow this can be tapered or discontinued as an outpatient. Patient d-dimer is bit worse compared to admission. Although other inflammatory markers are better Constitutional: Denied any fatigue denied any fever. Cardio vascular: denied any chest pain, palpitations Gastrointestinal denied any nausea vomiting Pulmonary: Denied any shortness of breath cough Neurologic denied any new focal deficits All inpatient medications were reviewed and appropriate changes in these medications as dictated in the interval history and assessment and plan. Objective - Vital Signs Vital signs: Vital Signs Temp 99.6 F 05/25/20 09:25 Pulse 63 05/25/20 09:25 Resp 18 05/25/20 09:25 BP 124/55 05/25/20 09:25 Pulse Ox 90 L 05/25/20 09:25 Intake & Output 05/24/20 05/25/20 05/25/20 18:59 06:59 18:59 Intake Total 1020 Balance 1020 Intake: Oral 1020 Other: Voiding Method Toilet Toilet # Voids 2 # Bowel Movements 0 - Exam PHYSICAL EXAMINATION: GENERAL: The patient is alert and oriented x3, not in any acute distress. Obese HEENT: Pupils are round and equally reacting to light. EOMI. No scleral icterus. No conjunctival pallor. Normocephalic, atraumatic. No pharyngeal erythema. No thyromegaly. CARDIOVASCULAR: S1 and S2 present. No murmurs, rubs, or gallops. PULMONARY: Chest is clear to auscultation, no wheezing or crackles. ABDOMEN: Soft, nontender, nondistended, normoactive bowel sounds. No palpable organomegaly. MUSCULOSKELETAL: No joint swelling or deformity. EXTREMITIES: No cyanosis, clubbing, or pedal edema. NEUROLOGICAL: Gross neurological examination did not reveal any focal deficits. SKIN: No rashes. Note: Because of COVID 19 isolation, some of the history and physical exam findings are indirect and obtained from nursing staff, and other physician examinations to avoid unnecessary contact with the patient. - Labs CBC & Chem 7: 05/20/20 19:34 05/25/20 06:25 Labs: Abnormal Lab Results - Last 24 Hours (Table) 05/24/20 05/24/20 05/24/20 Range/Units 07:08 11:39 16:45 Chloride 110 H (96-109) mmol/L BUN 42.0 H (9.0-27.0) mg/dL Est GFR (CKD-EPI)AfAm 59.3 L (60.0-200.0) Est GFR (CKD-EPI)NonAf 51.2 L (60.0-200.0) BUN/Creatinine Ratio 32.31 H (12.00-20.00) Ratio Glucose 221 H (70-110) mg/dL POC Glucose (mg/dL) 202 H 326 H (75-99) mg/dL Lactate Dehydrogenase 485 H (120-246) U/L C-Reactive Protein 4.4 H (0.0-0.8) mg/dL 05/24/20 05/25/20 05/25/20 Range/Units 20:50 06:25 07:10 Chloride 110 H (96-109) mmol/L BUN 37.0 H (9.0-27.0) mg/dL Est GFR (CKD-EPI)AfAm (60.0-200.0) Est GFR (CKD-EPI)NonAf 56.4 L (60.0-200.0) BUN/Creatinine Ratio 30.83 H (12.00-20.00) Ratio Glucose 173 H (70-110) mg/dL POC Glucose (mg/dL) 409 H 200 H (75-99) mg/dL Lactate Dehydrogenase (120-246) U/L C-Reactive Protein (0.0-0.8) mg/dL Microbiology - Last 24 Hours (Table) 05/20/20 19:15 Blood Culture - Preliminary Blood No Growth after 96 hours 05/20/20 19:34 Blood Culture - Preliminary Blood No Growth after 96 hours Assessment and Plan Plan: -acute hypoxic respiratory failure: Secondary to covid 19 pneumonia patient maintained on Decadron and vitamin and zinc supplements. Monitor inflammatory markers. Patient continues on 2 L of oxygen. -Type 2 diabetes mellitus uncontrolled elevated blood sugars, bit better controlled now , will add pre-meal insulin -Hyperkalemia, potassium was 5.5 and given a dose of Kayexalate and will repeat a.m. labs -Hypovolemic hyponatremia, improved -Acute renal failure secondary to Covid 19: Improved, current creatinine is 1.3 -Hypertension -DVT prophylaxis subcutaneous heparin
[2020-05-25 11:44] LABS: Glucose,Whole Blood 195 mg/dL (75-99)
--- NOTE | 2020-05-25 16:01 | P.PN ---
Subjective Progress Note Date: 05/25/20 Principal diagnosis: CoVID 19 pneumonia 80-year-old male, who was brought to the emergency department by EMS. The patient apparently has had 2 weeks' worth of increasing shortness of breath, and significant fatigue. The patient also had chest congestion. He had a fever. The patient states that he is just not been feeling well and getting progressively worse. He also apparently had an episode or 2 of diarrhea. The patient denied any chest pain or chest pressure or palpitations. The patient also denied nausea, vomiting, and abdominal pain. Apparently when EMS arrived, the patient's saturations were in the low 80s on room air. For that reason, he was transported in, evaluated, and admitted with a diagnosis of COVID 19 19 pneumonia. The patient does have a history of diabetes, hypertension, and a previous pacemaker insertion. White count was 4.6, hemoglobin 12.5, hematocrit 37.1, and platelet count 153,000. PT, INR, and PTT were all normal. D-dimer was 0.77. Sodium 136, potassium 4.5, chlorides 102, CO2 26, anion gap 8, BUN 47, and creatinine 1.63. Ferritin was 985, LDH 818, C-reactive protein 58, and pro-calcitonin level was 0.12. Chest x-ray did show some interstitial infiltrates. On 05/22/2020 patient seen in follow-up on medical floor. he is on 2 L of oxygen his pulse ox is 90-94%, breathing comfortably, no fever or chills, blood pressure has been stable. Denies any worsening dyspnea or hypoxemia, he has a mild cough, no chest discomfort. He continues on oral Decadron 6 mg daily, IV hydration, vitamins, d-dimer was low at 0.77, patient is on subcu heparin for DVT prophylaxis, pro-calcitonin level was low, inflammatory markers were not significantly elevated on admission. Clinically symptoms have not progressed, and patient will be considered for discharge in next 24 hours. The patient is seen today 05/23/2020 in follow-up on the regular medical floor. He is currently sitting up in chair at the bedside. Awake and alert in no acute distress. Continue O2 saturations in the low 90s on 2 L/m per nasal cannula. Afebrile. Hemodynamically stable. Blood cultures reveal no growth. Blood glucose 202. Sodium 143. Potassium 5.5. Creatinine 1.19. He remains on dexamethasone, so continues heparin, vitamin supplements. Chest x-ray continues to show bilateral multifocal opacities consistent with CoVID infection. No neri ge. The patient is seen today 05/24/2020 in follow-up on the regular medical floor. He is currently resting comfortably in bed. Awake and alert in no acute distress. He is maintaining O2 saturations in the 90s on 2 L/m per nasal cannula. He's been on dexamethasone, vitamin supplements, subcutaneous heparin. No worsening shortness of breath, cough or congestion. D-dimer 1.02. Sodium 145. Potassium 5.1. Creatinine 1.3. LDH 485. C-reactive protein 4.4. The patient is seen today 05/25/2020 in follow-up on the regular medical floor. He is currently resting quite comfortably in bed. Maintaining O2 saturations in the low 90s on 2 L/m per nasal cannula. Sodium 144. Potassium 4.7. Creatinine 1.2. Glucose 173. He remains on dexamethasone, heparin, vitamin supplements. Objective - Vital Signs Vital signs: Vital Signs Temp 98.5 F 05/25/20 14:04 Pulse 64 05/25/20 14:04 Resp 18 05/25/20 14:04 BP 126/63 05/25/20 14:04 Pulse Ox 92 L 05/25/20 14:04 Intake & Output 05/24/20 05/25/20 05/25/20 18:59 06:59 18:59 Intake Total 1020 Balance 1020 Intake: Oral 1020 Other: Voiding Method Toilet Toilet Toilet # Voids 2 # Bowel Movements 0 - Exam GENERAL EXAM: Alert, pleasant, 80-year-old male patient, on 2 L of oxygen is of oxygen with a pulse ox of 90% comfortable in no apparent distress. HEAD: Normocephalic/atraumatic. EYES: Normal reaction of pupils, equal size. Conjunctiva pink, sclera white. NOSE: Clear with pink turbinates. THROAT: No erythema or exudates. NECK: No masses, no JVD, no thyroid enlargement, no adenopathy. CHEST: No chest wall deformity. Symmetrical expansion. LUNGS: Equal air entry with bibasilar coarse crackles CVS: Regular rate and rhythm, normal S1 and S2, no gallops, no murmurs, no rubs ABDOMEN: Soft, nontender. No hepatosplenomegaly, normal bowel sounds, no guarding or rigidity. EXTREMITIES: No clubbing, no edema, no cyanosis, 2+ pulses and upper and lower extremities. MUSCULOSKELETAL: Muscle strength and tone normal. SPINE: No scoliosis or deformity SKIN: No rashes CENTRAL NERVOUS SYSTEM: No focal deficits, tone is normal in all 4 extremities. PSYCHIATRIC: Alert and oriented -3. Appropriate affect. Intact judgment and insight. - Labs CBC & Chem 7: 05/20/20 19:34 05/25/20 06:25 Labs: Abnormal Lab Results - Last 24 Hours (Table) 05/24/20 05/24/20 05/25/20 Range/Units 16:45 20:50 06:25 Chloride 110 H (96-109) mmol/L BUN 37.0 H (9.0-27.0) mg/dL Est GFR (CKD-EPI)NonAf 56.4 L (60.0-200.0) BUN/Creatinine Ratio 30.83 H (12.00-20.00) Ratio Glucose 173 H (70-110) mg/dL POC Glucose (mg/dL) 326 H 409 H (75-99) mg/dL 05/25/20 05/25/20 Range/Units 07:10 11:41 Chloride (96-109) mmol/L BUN (9.0-27.0) mg/dL Est GFR (CKD-EPI)NonAf (60.0-200.0) BUN/Creatinine Ratio (12.00-20.00) Ratio Glucose (70-110) mg/dL POC Glucose (mg/dL) 200 H 195 H (75-99) mg/dL Microbiology - Last 24 Hours (Table) 05/20/20 19:15 Blood Culture - Preliminary Blood No Growth after 96 hours 05/20/20 19:34 Blood Culture - Preliminary Blood No Growth after 96 hours Assessment and Plan Assessment: 1 Acute hypoxic respiratory failure secondary to CoVID 19 pneumonia, he was not a candidate for Remdesivir, Tocilizumab or convalescent plasma 2 History of diabetes mellitus type 2 3 History of hypertension 4 History of chronic sinus disease 5 History of diverticulitis, status post bowel resection Plan: The patient was seen and evaluated by Dr. Koenig The patient may need subacute rehabilitation Repeat chest x-ray for a markers in the a.m. Titrate the FiO2 as tolerated We will continue to follow I, the cosigning physician, performed a history & physical examination of the patient. Lungs sounds crackles in the bilateral posterior bases. Maintaining good O2 saturations in the 90s on 2 L/m per nasal cannula. I discussed the assessment and plan of care with my nurse practitioner, Krupa Alarcon. I attest to the above note as dictated by her.
[2020-05-25 16:46] LABS: Glucose,Whole Blood 215 mg/dL (75-99)
[2020-05-25 20:34] LABS: Glucose,Whole Blood 329 mg/dL (75-99)
[2020-05-25] MEDS: INSULIN DETEMIR (LEVEMIR) 100 UNIT/ML SYR SQ SCH (20:49)
[2020-05-26 06:44] LABS: Glucose,Whole Blood 207 mg/dL (75-99)
--- NOTE | 2020-05-26 07:19 | XR ---
EXAMINATION TYPE: XR chest 1V portable DATE OF EXAM: 05/26/2020 HISTORY: Shortness of breath. COMPARISON: 05/23/2020 TECHNIQUE: Single view of the chest is submitted. FINDINGS: Demonstrated are scattered senescent parenchymal change. Patchy perihilar and basilar infiltrates noted. No significant change appreciated. The heart is stable. Hilar and mediastinal structures are within normal limits. Degenerative changes are seen of the dorsal spine. IMPRESSION: 1. Patchy perihilar and basilar infiltrates noted. No significant change appreciated.
[2020-05-26] MEDS: HEPARIN SODIUM,PORCINE 5,000 UNIT/ML 1 ML VIAL SQ SCH (07:47)
[2020-05-26] MEDS: ATORVASTATIN 80 MG TAB PO SCH (07:48)
[2020-05-26] MEDS: dexAMETHasone 2 MG TAB PO SCH (07:48)
[2020-05-26] MEDS: CLOPIDOGREL 75 MG TAB PO SCH (07:48)
[2020-05-26] MEDS: ASCORBIC ACID 500 MG TAB PO SCH (07:48)
[2020-05-26] MEDS: FAMOTIDINE 20 MG TAB PO SCH (07:48)
[2020-05-26] MEDS: ZINC SULFATE 220 MG CAP PO SCH (07:48)
[2020-05-26] MEDS: glipiZIDE 10 MG TAB PO SCH ×2 (07:48→20:23)
[2020-05-26] MEDS: ASPIRIN 81 MG PO SCH (07:48)
[2020-05-26] MEDS: PIOGLITAZONE 30 MG TAB PO SCH (07:48)
[2020-05-26] MEDS: INSULIN ASPART (NovoLOG) 100 UNIT/ML VIAL SQ SCH ×7 (07:49→20:23)
[2020-05-26] MEDS: METOPROLOL SUCCINATE (ER) 50 MG TAB.ER.24H PO SCH (07:49)
[2020-05-26 11:44] LABS: Glucose,Whole Blood 285 mg/dL (75-99)
--- NOTE | 2020-05-26 12:20 | P.PN ---
Subjective Progress Note Date: 05/26/20 80-year-old male, who was brought to the emergency department by EMS. The patient apparently has had 2 weeks' worth of increasing shortness of breath, and significant fatigue. The patient also had chest congestion. He had a fever. The patient states that he is just not been feeling well and getting progressively worse. He also apparently had an episode or 2 of diarrhea. The patient denied any chest pain or chest pressure or palpitations. The patient also denied nausea, vomiting, and abdominal pain. Apparently when EMS arrived, the patient's saturations were in the low 80s on room air. For that reason, he was transported in, evaluated, and admitted with a diagnosis of COVID 19 19 pneumonia. The patient does have a history of diabetes, hypertension, and a previous pacemaker insertion. White count was 4.6, hemoglobin 12.5, hematocrit 37.1, and platelet count 153,000. PT, INR, and PTT were all normal. D-dimer was 0.77. Sodium 136, potassium 4.5, chlorides 102, CO2 26, anion gap 8, BUN 47, and creatinine 1.63. Ferritin was 985, LDH 818, C-reactive protein 58, and pro-calcitonin level was 0.12. Chest x-ray did show some interstitial infiltrates. On 05/22/2020 patient seen in follow-up on medical floor. he is on 2 L of oxygen his pulse ox is 90-94%, breathing comfortably, no fever or chills, blood pressure has been stable. Denies any worsening dyspnea or hypoxemia, he has a mild cough, no chest discomfort. He continues on oral Decadron 6 mg daily, IV hydration, vitamins, d-dimer was low at 0.77, patient is on subcu heparin for DVT prophylaxis, pro-calcitonin level was low, inflammatory markers were not significantly elevated on admission. Clinically symptoms have not progressed, and patient will be considered for discharge in next 24 hours. The patient is seen today 05/23/2020 in follow-up on the regular medical floor. He is currently sitting up in chair at the bedside. Awake and alert in no acute distress. Continue O2 saturations in the low 90s on 2 L/m per nasal cannula. Afebrile. Hemodynamically stable. Blood cultures reveal no growth. Blood g lucose 202. Sodium 143. Potassium 5.5. Creatinine 1.19. He remains on dexamethasone, so continues heparin, vitamin supplements. Chest x-ray continues to show bilateral multifocal opacities consistent with CoVID infection. No change. The patient is seen today 05/24/2020 in follow-up on the regular medical floor. He is currently resting comfortably in bed. Awake and alert in no acute distre ss. He is maintaining O2 saturations in the 90s on 2 L/m per nasal cannula. He's been on dexamethasone, vitamin supplements, subcutaneous heparin. No worsening shortness of breath, cough or congestion. D-dimer 1.02. Sodium 145. Potassium 5.1. Creatinine 1.3. LDH 485. C-reactive protein 4.4. The patient is seen today 05/25/2020 in follow-up on the regular medical floor. He is currently resting quite comfortably in bed. Maintaining O2 saturations in the low 90s on 2 L/m per nasal cannula. Sodium 144. Potassium 4.7. Creatinine 1.2. Glucose 173. He remains on dexamethasone, heparin, vitamin supplements. 05/26/2020 on seeing the patient for a follow-up regarding the patient's acute hypoxic respiratory failure due to Covid 19 related pneumonia. The patient was not a candidate for Remdesivir, Tocilizumab or convalescent plasma, and the patient is currently on Decadron 6 mg on a daily basis and addition to Levemir insulin 50 units daily at bedtime and NovoLog 6 units 3 times a day with meals and a sliding scale coverage. The patient was on 2 L about 2 by nasal cannula with pulse ox of 93%. Earlier this morning, the patient's oxidation progressively got worse in the patient is currently on 100% nonrebreather facemask maintaining a saturation above 90% at around 94%. Overall, the patient is doing well. Creatinine is at 1.2. The patient had a CRP level of 4.4 with an LDH level of 485 from 05/24/2020. Inflammatory markers are being monitored. Last d-dimer from 05/24/2020 was 1.02. Blood cultures were negative repeat chest x-ray was done today and the findings are essentially stable and the patient has patchy bilateral perihilar pulmonary infiltrates without any significant interval change. D-dimer from today is at 1.7 and the patient remains on Lovenox. Objective - Vital Signs Vital signs: Vital Signs Temp 98.3 F 05/26/20 09:58 Pulse 67 05/26/20 09:58 Resp 18 05/26/20 09:58 BP 105/64 05/26/20 09:58 Pulse Ox 89 L 05/26/20 09:58 Intake & Output 05/25/20 05/26/20 05/26/20 18:59 06:59 18:59 Intake Total 350 Balance 350 Intake: Oral 350 Other: Voiding Method Toilet Toilet Toilet # Voids 3 2 - Exam GENERAL EXAM: Alert, pleasant, 80-year-old male patient, on 100% nonrebreather oxygen mask , comfortable in no apparent distress. HEAD: Normocephalic/atraumatic. EYES: Normal reaction of pupils, equal size. Conjunctiva pink, sclera white. NOSE: Clear with pink turbinates. THROAT: No erythema or exudates. NECK: No masses, no JVD, no thyroid enlargement, no adenopathy. CHEST: No chest wall deformity. Symmetrical expansion. LUNGS: Equal air entry with bibasilar coarse crackles CVS: Regular rate and rhythm, normal S1 and S2, no gallops, no murmurs, no rubs ABDOMEN: Soft, nontender. No hepatosplenomegaly, normal bowel so milligrams unds, no guarding or rigidity. EXTREMITIES: No clubbing, no edema, no cyanosis, 2+ pulses and upper and lower extremities. MUSCULOSKELETAL: Muscle strength and tone normal. SPINE: No scoliosis or deformity SKIN: No rashes CENTRAL NERVOUS SYSTEM: No focal deficits, tone is normal in all 4 extremities. PSYCHIATRIC: Alert and oriented -3. Appropriate affect. Intact judgment and insight. - Labs CBC & Chem 7: 05/20/20 19:34 05/25/20 06:25 Labs: Abnormal Lab Results - Last 24 Hours (Table) 05/25/20 05/25/20 05/26/20 Range/Units 16:45 20:33 05:25 D-Dimer 1.70 H (<0.60) mg/L FEU POC Glucose (mg/dL) 215 H 329 H (75-99) mg/dL 05/26/20 05/26/20 Range/Units 06:42 11:42 D-Dimer (<0.60) mg/L FEU POC Glucose (mg/dL) 207 H 285 H (75-99) mg/dL Microbiology - Last 24 Hours (Table) 05/20/20 19:34 Blood Culture - Preliminary Blood No Growth after 120 hours 05/20/20 19:15 Blood Culture - Preliminary Blood No Growth after 120 hours Assessment and Plan Plan: 1 Acute hypoxic respiratory failure secondary to CoVID 19 pneumonia, he was not a candidate for Remdesivir, Tocilizumab or convalescent plasma, currently on D ecadron the patient is on 100% nonrebreather facemask. The patient was infected approximately 2 weeks ago when he came into the hospital with few liters of oxygen by nasal cannula, specifically at around 2 L and patient condition decompensated earlier this morning and is currently on 100% nonrebreather facemask. Chest x-ray findings are stable. D-dimer slightly elevated. 2 History of diabetes mellitus type 2, currently on Levemir insulin for blood sugar control 3 History of hypertension 4 History of chronic sinus disease 5 History of diverticulitis, status post bowel resection Plan: Lovenox 40 mg subcu for DVT prophylaxis In view of worsening in oxygenation and decompensation of the respirator status, the patient would be a candidate for Tocilizumab Repeat chest x-ray for a markers in the a.m. The patient 100% nonrebreather facemask will consider switching this patient to high flow oxygen by nasal cannula which would also offered him some CPAP Titrate the FiO2 as tolerated We will continue to follow
[2020-05-26] MEDS: ENOXAPARIN 40 MG/0.4 ML SYRINGE SQ SCH (12:27)
[2020-05-26 13:19] LABS: C Reactive Protein 9.4 mg/dL (0.0-0.8)
[2020-05-26] MEDS ORDERED: TOCILIZUMAB 400 MG in SODIUM CHLORIDE 0.9% 80 ML IV ONE (15:00)
[2020-05-26 15:35] VITALS: BMI 39.5
--- NOTE | 2020-05-26 16:05 | P.PN ---
Subjective Progress Note Date: 05/26/20 80-year-old male who presents emergency Department stating that he has had shortness of breath and feeling fatigued for at least 2 weeks. Patient states he has had exposure to COVID . Patient states he has had a fever. Patient states she's also states and smile. Patient also states she's had diarrhea. Patient denies any chest pain or palpitations. Patient denies any abdominal pain patient denies nausea vomiting diarrhea. According to EMS with the patient was coming in he was satting in the low 80s. Patient is currently on a few liters of oxygen and sat in mid 90s. Patient is a diabetic and has high blood pressure. Patient also has a pacemaker. Patient is presently on 2 L of oxygen was requiring 4 L yesterday. Patient was started on IV fluids patient creatinine went up to 1.6 baseline is around 1. Patient's blood sugars are highly elevated. Patient tests positive for Covid. 05/22/2020 Patient is presently on 2 L of oxygen appears to be doing better possibility of discharge tomorrow. Creatinine went up a bit to 1.6 baseline is around the 1. Patient was started on IV fluids will recheck the basic metabolic profile tomorrow. 05/23/2020 Patient seen and evaluated in follow-up continues to be on 2 L of oxygen and becomes dyspneic with exertion. Patient states he does not know wear oxygen at home. Pulmonary is following. Patient's blood sugars are elevated and will continue sliding scale at this time as patient is on steroids. Potassium was found to be slightly elevated at 5.5 and was given a dose of Kayexalate. Will repeat a.m. labs. Instructed and encouraged the patient to get up and increase activity as tolerated. 05/24/2020 Patient is presently in 2 does of hours and doing clinically well. Patient is on dexamethasone, vitamin supplements, subcutaneous heparin. No worsening shortness of breath, cough or congestion. D-dimer 1.02. Sodium 145. Potassium 5.1. Creatinine 1.3. LDH 485. C-reactive protein 4.4. His creatinine actually went up a little bit from 1.19-1.3 05/25/2020 Patient is fairly stable no significant improvement or worsening. Patient is still on 2 L of oxygen. We'll monitor him 1 more night. Continues to require oxygen patient probably can be discharged on 2 L tomorrow this can be tapered or discontinued as an outpatient. Patient d-dimer is bit worse compared to admission. Although other inflammatory markers are better 05/26/2020 Patient is seen this morning currently on nonrebreather and airvo as his oxygen was found to be 89% on 6 L of oxygen. Pulmonary is following. D-dimer has gone up at 1.70 along with lactate dehydrogenase at 491 and CRP is 9.4. Blood sugars continue to be elevated and patient is maintained on sliding scale along with long-acting and pre-meal insulin and will continue at this time. Patient continues on vitamin and zinc supplements along with Lovenox and dexamethasone daily. Patient is scheduled to receive Tocilizumab today. Will continue to monitor closely based on the clinical course of the patient. Patient continues to be weak and was seen and evaluated by physical therapy recommending subacute rehab and patient is now agreeable and a social work consult was placed. Constitutional: Denied any fatigue denied any fever. Cardio vascular: denied any chest pain, palpitations Gastrointestinal denied any nausea vomiting Pulmonary: Denied any shortness of breath cough Neurologic denied any new focal deficits All inpatient medications were reviewed and appropriate changes in these medications as dictated in the interval history and assessment and plan. Objective - Vital Signs Vital signs: Vital Signs Temp 98.3 F 05/26/20 09:58 Pulse 67 05/26/20 09:58 Resp 18 05/26/20 09:58 BP 105/64 05/26/20 09:58 Pulse Ox 89 L 05/26/20 09:58 Intake & Output 05/25/20 05/26/20 05/26/20 18:59 06:59 18:59 Intake Total 350 Balance 350 Intake: Oral 350 Other: Voiding Method Toilet Toilet Toilet # Voids 3 2 - Exam GENERAL: The patient is alert and oriented x3, not in any acute distress. Obese, currently on a nonrebreather HEENT: Pupils are round and equally reacting to light. EOMI. No scleral icterus. No conjunctival pallor. Normocephalic, atraumatic. No pharyngeal erythema. No thyromegaly. CARDIOVASCULAR: S1 and S2 present. No murmurs, rubs, or gallops. PULMONARY: Chest is clear to auscultation, no wheezing or crackles. ABDOMEN: Soft, nontender, nondistended, normoactive bowel sounds. No palpable organomegaly. MUSCULOSKELETAL: No joint swelling or deformity. EXTREMITIES: No cyanosis, clubbing, or pedal edema. NEUROLOGICAL: Gross neurological examination did not reveal any focal deficits. SKIN: No rashes. - Labs CBC & Chem 7: 05/20/20 19:34 05/25/20 06:25 Labs: Abnormal Lab Results - Last 24 Hours (Table) 05/25/20 05/25/20 05/26/20 Range/Units 16:45 20:33 05:25 D-Dimer 1.70 H (<0.60) mg/L FEU POC Glucose (mg/dL) 215 H 329 H (75-99) mg/dL 05/26/20 05/26/20 Range/Units 06:42 11:42 D-Dimer (<0.60) mg/L FEU POC Glucose (mg/dL) 207 H 285 H (75-99) mg/dL Microbiology - Last 24 Hours (Table) 05/20/20 19:34 Blood Culture - Preliminary Blood No Growth after 120 hours 05/20/20 19:15 Blood Culture - Preliminary Blood No Growth after 120 hours Assessment and Plan Assessment: -acute hypoxic respiratory failure: Secondary to covid 19 pneumonia patient maintained on Decadron and vitamin and zinc supplements. Monitor inflammatory markers. Patient continues on 2 L of oxygen and was found to be in the low 80s to 89% on 6 L and currently on a nonrebreather. Pulmonary following -Type 2 diabetes mellitus uncontrolled elevated blood sugars secondary to systemic steroids, continue with pre-meal, sliding scale, and long-acting -Hyperkalemia, improved -Hypotonic hyponatremia, improved -Acute renal failure secondary to Covid 19: Improved, current creatinine is 1.2 -Hypertension -DVT subcutaneous Lovenox Plan: Continue with current medications. IV fluids have been discontinued. Will continue with dexamethasone along with vitamin and zinc supplements. Lovenox has been added and patient is scheduled to receive Tocilizumab. Pulmonary following . Repeat labs in the morning along with d-dimer. Patient currently on nonrebreather along with airvo requiring more oxygen. PT/OT evaluating the patient and patient continues to be weak requiring subacute rehab and social work consult was placed to discuss possible ECF upon discharge once stabilized. Will continue to monitor closely and make further recommendations based on the clinical course of the patient. Prognosis is guarded.
[2020-05-26 16:41] LABS: Glucose,Whole Blood 385 mg/dL (75-99)
[2020-05-26 20:01] LABS: Glucose,Whole Blood 373 mg/dL (75-99)
[2020-05-26] MEDS: INSULIN DETEMIR (LEVEMIR) 100 UNIT/ML SYR SQ SCH (20:23)
[2020-05-27 06:51] LABS: Glucose,Whole Blood 171 mg/dL (75-99)
[2020-05-27] MEDS: PIOGLITAZONE 30 MG TAB PO SCH (07:34)
[2020-05-27] MEDS: ZINC SULFATE 220 MG CAP PO SCH (07:34)
[2020-05-27] MEDS: ENOXAPARIN 40 MG/0.4 ML SYRINGE SQ SCH (07:34)
[2020-05-27] MEDS: ASPIRIN 81 MG PO SCH (07:35)
[2020-05-27] MEDS: ASCORBIC ACID 500 MG TAB PO SCH (07:35)
[2020-05-27] MEDS: glipiZIDE 10 MG TAB PO SCH ×2 (07:35→20:40)
[2020-05-27] MEDS: ATORVASTATIN 80 MG TAB PO SCH (07:35)
[2020-05-27] MEDS: CLOPIDOGREL 75 MG TAB PO SCH (07:35)
[2020-05-27] MEDS: FAMOTIDINE 20 MG TAB PO SCH (07:35)
[2020-05-27] MEDS: dexAMETHasone 2 MG TAB PO SCH (07:35)
[2020-05-27] MEDS: METOPROLOL SUCCINATE (ER) 50 MG TAB.ER.24H PO SCH (07:35)
[2020-05-27] MEDS: INSULIN ASPART (NovoLOG) 100 UNIT/ML VIAL SQ SCH ×7 (07:36→20:40)
[2020-05-27] MEDS ORDERED: TOCILIZUMAB 400 MG in SODIUM CHLORIDE 0.9% 80 ML IV ONE (10:00)
[2020-05-27 11:38] LABS: Glucose,Whole Blood 189 mg/dL (75-99)
[2020-05-27 11:50] LABS: Basophils # (A) 0.01 X 10*3/uL (0.00-0.10); Basophils % (A) 0.1 %; Eosinophils # (A) 0.01 X 10*3/uL (0.04-0.35); Eosinophils % (A) 0.1 %; HCT 39.5 % (39.6-50.0); HGB 12.6 g/dL (13.0-17.0); Lymphocytes # (A) 1.36 X 10*3/uL (0.90-5.00); Lymphocytes % (A) 12.6 %; MCH 30.6 pg (27.0-32.0); MCHC 31.9 g/dL (32.0-37.0); MCV 95.9 fL (80.0-97.0); Mean Platelet Volume 11.7 fL (9.5-12.2); Monocytes # (A) 0.82 X 10*3/uL (0.20-1.00); Monocytes % (A) 7.6 %; Neutrophils % (A) 77.7 %; Platelet Count 281 X 10*3/uL (140-440); RBC 4.12 X 10*6/uL (4.40-5.60); RDW 13.6 % (11.5-14.5)
--- NOTE | 2020-05-27 12:55 | P.PN ---
Subjective Progress Note Date: 05/27/20 80-year-old male, who was brought to the emergency department by EMS. The patient apparently has had 2 weeks' worth of increasing shortness of breath, and significant fatigue. The patient also had chest congestion. He had a fever. The patient states that he is just not been feeling well and getting progressively worse. He also apparently had an episode or 2 of diarrhea. The patient denied any chest pain or chest pressure or palpitations. The patient also denied nausea, vomiting, and abdominal pain. Apparently when EMS arrived, the patient's saturations were in the low 80s on room air. For that reason, he was transported in, evaluated, and admitted with a diagnosis of COVID 19 19 pneumonia. The patient does have a history of diabetes, hypertension, and a previous pacemaker insertion. White count was 4.6, hemoglobin 12.5, hematocrit 37.1, and platelet count 153,000. PT, INR, and PTT were all normal. D-dimer was 0.77. Sodium 136, potassium 4.5, chlorides 102, CO2 26, anion gap 8, BUN 47, and creatinine 1.63. Ferritin was 985, LDH 818, C-reactive protein 58, and pro-calcitonin level was 0.12. Chest x-ray did show some interstitial infiltrates. On 05/22/2020 patient seen in follow-up on medical floor. he is on 2 L of oxygen his pulse ox is 90-94%, breathing comfortably, no fever or chills, blood pressure has been stable. Denies any worsening dyspnea or hypoxemia, he has a mild cough, no chest discomfort. He continues on oral Decadron 6 mg daily, IV hydration, vitamins, d-dimer was low at 0.77, patient is on subcu heparin for DVT prophylaxis, pro-calcitonin level was low, inflammatory markers were not significantly elevated on admission. Clinically symptoms have not progressed, and patient will be considered for discharge in next 24 hours. The patient is seen today 05/23/2020 in follow-up on the regular medical floor. He is currently sitting up in chair at the bedside. Awake and alert in no acute distress. Continue O2 saturations in the low 90s on 2 L/m per nasal cannula. Afebrile. Hemodynamically stable. Blood cultures reveal no growth. Blood g lucose 202. Sodium 143. Potassium 5.5. Creatinine 1.19. He remains on dexamethasone, so continues heparin, vitamin supplements. Chest x-ray continues to show bilateral multifocal opacities consistent with CoVID infection. No change. The patient is seen today 05/24/2020 in follow-up on the regular medical floor. He is currently resting comfortably in bed. Awake and alert in no acute distre ss. He is maintaining O2 saturations in the 90s on 2 L/m per nasal cannula. He's been on dexamethasone, vitamin supplements, subcutaneous heparin. No worsening shortness of breath, cough or congestion. D-dimer 1.02. Sodium 145. Potassium 5.1. Creatinine 1.3. LDH 485. C-reactive protein 4.4. The patient is seen today 05/25/2020 in follow-up on the regular medical floor. He is currently resting quite comfortably in bed. Maintaining O2 saturations in the low 90s on 2 L/m per nasal cannula. Sodium 144. Potassium 4.7. Creatinine 1.2. Glucose 173. He remains on dexamethasone, heparin, vitamin supplements. 05/26/2020 on seeing the patient for a follow-up regarding the patient's acute hypoxic respiratory failure due to Covid 19 related pneumonia. The patient was not a candidate for Remdesivir, Tocilizumab or convalescent plasma, and the patient is currently on Decadron 6 mg on a daily basis and addition to Levemir insulin 50 units daily at bedtime and NovoLog 6 units 3 times a day with meals and a sliding scale coverage. The patient was on 2 L about 2 by nasal cannula with pulse ox of 93%. Earlier this morning, the patient's oxidation progressively got worse in the patient is currently on 100% nonrebreather facemask maintaining a saturation above 90% at around 94%. Overall, the patient is doing well. Creatinine is at 1.2. The patient had a CRP level of 4.4 with an LDH level of 485 from 05/24/2020. Inflammatory markers are being monitored. Last d-dimer from 05/24/2020 was 1.02. Blood cultures were negative repeat chest x-ray was done today and the findings are essentially stable and the patient has patchy bilateral perihilar pulmonary infiltrates without any significant interval change. D-dimer from today is at 1.7 and the patient remains on Lovenox. 05/27/2020 the patient is being seen for a follow-up. The patient is currently on high flow oxygen at 6 L. Note that the patient was on 100% nonrebreather facemask and was switched him to a high flow oxygen yesterday at 60 L. As part of his treatment, the patient received steroids and currently is receiving dexamethasone 6 mg by mouth daily. He is also Toci 2 yesterday and today. He completed treatment without any major side effects. Note that the patient was on low-flow oxygen and he progressively got worse requiring 100% nonrebreather and subsequent high flow oxygen. On today's evaluation, his white cell count is at 10. His d-dimer is at 1.6. Rest of the inflammatory markers have not been checked and this will be repeated tomorrow. LDH from yesterday was 491 with a CRP of 9.4. Otherwise, his renal function shows a stable creatinine of 1.2. The patient has been on FiO2 of 60% with a high flow oxygen of 60 L and the patient has been essentially stable since yesterday. No other significant events. Remains on Lovenox 40 mg subcu on a daily basis. Objective - Vital Signs Vital signs: Vital Signs Temp 97.5 F L 05/27/20 10:00 Pulse 57 L 05/27/20 10:00 Resp 21 05/27/20 10:00 BP 100/60 05/27/20 10:00 Pulse Ox 90 L 05/27/20 11:35 Intake & Output 05/26/20 05/27/20 05/27/20 18:59 06:59 18:59 Intake Total 580 Balance 580 Weight 136.078 kg Intake: Intake, IV Titration 100 Amount Tocilizumab 400 mg In 100 Sodium Chloride 0.9% 80 ml @ 100 mls/hr IV ONCE ONE Rx#:[id number] Oral 480 Other: Voiding Method Toilet Toilet # Voids 3 2 # Bowel Movements 1 - Exam GENERAL EXAM: Alert, pleasant, 80-year-old male patient, on 60l with an FiO2 of 65 HEAD: Normocephalic/atraumatic. EYES: Normal reaction of pupils, equal size. Conjunctiva pink, sclera white. NOSE: Clear with pink turbinates. THROAT: No erythema or exudates. NECK: No masses, no JVD, no thyroid enlargement, no adenopathy. CHEST: No chest wall deformity. Symmetrical expansion. LUNGS: Equal air entry with bibasilar coarse crackles CVS: Regular rate and rhythm, normal S1 and S2, no gallops, no murmurs, no rubs ABDOMEN: Soft, nontender. No hepatosplenomegaly, normal bowel so milligrams unds, no guarding or rigidity. EXTREMITIES: No clubbing, no edema, no cyanosis, 2+ pulses and upper and lower extremities. MUSCULOSKELETAL: Muscle strength and tone normal. SPINE: No scoliosis or deformity SKIN: No rashes CENTRAL NERVOUS SYSTEM: No focal deficits, tone is normal in all 4 extremities. PSYCHIATRIC: Alert and oriented -3. Appropriate affect. Intact judgment and insight. - Labs CBC & Chem 7: 05/27/20 06:34 05/25/20 06:25 Labs: Abnormal Lab Results - Last 24 Hours (Table) 05/26/20 05/26/20 05/26/20 Range/Units 05:25 16:37 19:59 WBC (4.50-10.00) X 10*3/uL RBC (4.40-5.60) X 10*6/uL Hgb (13.0-17.0) g/dL Hct (39.6-50.0) % MCHC (32.0-37.0) g/dL Immature Gran # (0.00-0.04) X 10*3/uL Neutrophils # (1.80-7.70) X 10*3/uL Eosinophils # (0.04-0.35) X 10*3/uL D-Dimer (<0.60) mg/L FEU POC Glucose (mg/dL) 385 H 373 H (75-99) mg/dL Lactate Dehydrogenase 491 H (120-246) U/L C-Reactive Protein 9.4 H (0.0-0.8) mg/dL 05/27/20 05/27/20 05/27/20 Range/Units 06:34 06:34 06:50 WBC 10.80 H (4.50-10.00) X 10*3/uL RBC 4.12 L (4.40-5.60) X 10*6/uL Hgb 12.6 L (13.0-17.0) g/dL Hct 39.5 L (39.6-50.0) % MCHC 31.9 L (32.0-37.0) g/dL Immature Gran # 0.20 H (0.00-0.04) X 10*3/uL Neutrophils # 8.40 H (1.80-7.70) X 10*3/uL Eosinophils # 0.01 L (0.04-0.35) X 10*3/uL D-Dimer 1.60 H (<0.60) mg/L FEU POC Glucose (mg/dL) 171 H (75-99) mg/dL Lactate Dehydrogenase (120-246) U/L C-Reactive Protein (0.0-0.8) mg/dL 05/27/20 Range/Units 11:37 WBC (4.50-10.00) X 10*3/uL RBC (4.40-5.60) X 10*6/uL Hgb (13.0-17.0) g/dL Hct (39.6-50.0) % MCHC (32.0-37.0) g/dL Immature Gran # (0.00-0.04) X 10*3/uL Neutrophils # (1.80-7.70) X 10*3/uL Eosinophils # (0.04-0.35) X 10*3/uL D-Dimer (<0.60) mg/L FEU POC Glucose (mg/dL) 189 H (75-99) mg/dL Lactate Dehydrogenase (120-246) U/L C-Reactive Protein (0.0-0.8) mg/dL Microbiology - Last 24 Hours (Table) 05/20/20 19:34 Blood Culture - Final Blood No Growth after 144 hours 05/20/20 19:15 Blood Culture - Final Blood No Growth after 144 hours Assessment and Plan Plan: 1 Acute hypoxic respiratory failure secondary to CoVID 19 pneumonia, currently on Decadron 6 mg and this received Tocilizumab 2 doses, the cardia the patient on high flow oxygen 6 L with an FiO2 of 65%.. 2 History of diabetes mellitus type 2, currently on Levemir insulin for blood sugar control 3 History of hypertension 4 History of chronic sinus disease 5 History of diverticulitis, status post bowel resection Plan: Lovenox 40 mg subcu for DVT prophylaxis Completed Tocilizumab 2 and the patient is currently on Decadron Repeat chest x-ray for a markers in the a.m. Keep the high flow oxygen 60 L with an FiO2 of 65% Titrate the FiO2 as tolerated We will continue to follow
--- NOTE | 2020-05-27 13:09 | P.PN ---
Subjective Progress Note Date: 05/27/20 80-year-old male who presents emergency Department stating that he has had shortness of breath and feeling fatigued for at least 2 weeks. Patient states he has had exposure to COVID . Patient states he has had a fever. Patient states she's also states and smile. Patient also states she's had diarrhea. Patient denies any chest pain or palpitations. Patient denies any abdominal pain patient denies nausea vomiting diarrhea. According to EMS with the patient was coming in he was satting in the low 80s. Patient is currently on a few liters of oxygen and sat in mid 90s. Patient is a diabetic and has high blood pressure. Patient also has a pacemaker. Patient is presently on 2 L of oxygen was requiring 4 L yesterday. Patient was started on IV fluids patient creatinine went up to 1.6 baseline is around 1. Patient's blood sugars are highly elevated. Patient tests positive for Covid. 05/22/2020 Patient is presently on 2 L of oxygen appears to be doing better possibility of discharge tomorrow. Creatinine went up a bit to 1.6 baseline is around the 1. Patient was started on IV fluids will recheck the basic metabolic profile tomorrow. 05/23/2020 Patient seen and evaluated in follow-up continues to be on 2 L of oxygen and becomes dyspneic with exertion. Patient states he does not know wear oxygen at home. Pulmonary is following. Patient's blood sugars are elevated and will continue sliding scale at this time as patient is on steroids. Potassium was found to be slightly elevated at 5.5 and was given a dose of Kayexalate. Will repeat a.m. labs. Instructed and encouraged the patient to get up and increase activity as tolerated. 05/24/2020 Patient is presently in 2 does of hours and doing clinically well. Patient is on dexamethasone, vitamin supplements, subcutaneous heparin. No worsening shortness of breath, cough or congestion. D-dimer 1.02. Sodium 145. Potassium 5.1. Creatinine 1.3. LDH 485. C-reactive protein 4.4. His creatinine actually went up a little bit from 1.19-1.3 05/25/2020 Patient is fairly stable no significant improvement or worsening. Patient is still on 2 L of oxygen. We'll monitor him 1 more night. Continues to require oxygen patient probably can be discharged on 2 L tomorrow this can be tapered or discontinued as an outpatient. Patient d-dimer is bit worse compared to admission. Although other inflammatory markers are better 05/26/2020 Patient is seen this morning currently on nonrebreather and airvo as his oxygen was found to be 89% on 6 L of oxygen. Pulmonary is following. D-dimer has gone up at 1.70 along with lactate dehydrogenase at 491 and CRP is 9.4. Blood sugars continue to be elevated and patient is maintained on sliding scale along with long-acting and pre-meal insulin and will continue at this time. Patient continues on vitamin and zinc supplements along with Lovenox and dexamethasone daily. Patient is scheduled to receive Tocilizumab today. Will continue to monitor closely based on the clinical course of the patient. Patient continues to be weak and was seen and evaluated by physical therapy recommending subacute rehab and patient is now agreeable and a social work consult was placed. 05/27/2020 Patient is seen and evaluated this morning with no improvement in respiratory status. Patient remains on Airvo with supplemental nonrebreather. Patient is day 2 of receiving Tocilizumab. Will repeat a.m. chest x-ray along with inflammatory markers. D-dimer today was 1.60. White blood count has gone up in is 10.8, hemoglobin is 12.6. Patient is afebrile. To continue with dexametha sone, Lovenox, vitamin C and zinc supplements. Pulmonary is following. Had a discussion with the patient about CODE STATUS along with his son Mauricio and currently wish to remain a full code until talking with family member more extensively about the situation. Will continue to monitor closely. Prognosis remains guarded. Constitutional: Reports fatigue, denied any fever. Cardio vascular: denied any chest pain, palpitations Gastrointestinal denied any nausea vomiting Pulmonary: Reports worsening shortness of breath Neurologic reports generalized weakness All inpatient medications were reviewed and appropriate changes in these medications as dictated in the interval history and assessment and plan. Objective - Vital Signs Vital signs: Vital Signs Temp 97.5 F L 05/27/20 10:00 Pulse 57 L 05/27/20 10:00 Resp 21 05/27/20 10:00 BP 100/60 05/27/20 10:00 Pulse Ox 90 L 05/27/20 11:35 Intake & Output 05/26/20 05/27/20 05/27/20 18:59 06:59 18:59 Intake Total 580 Balance 580 Weight 136.078 kg Intake: Intake, IV Titration 100 Amount Tocilizumab 400 mg In 100 Sodium Chloride 0.9% 80 ml @ 100 mls/hr IV ONCE ONE Rx#:[id number] Oral 480 Other: Voiding Method Toilet Toilet # Voids 3 2 # Bowel Movements 1 - Exam GENERAL: The patient is alert and oriented x3, not in any acute distress. Obese, currently on a nonrebreather and airvo at a flow rate of 60 with an FiO2 of 65 HEENT: Pupils are round and equally reacting to light. EOMI. No scleral icterus. No conjunctival pallor. Normocephalic, atraumatic. No pharyngeal erythema. No thyromegaly. CARDIOVASCULAR: S1 and S2 present. No murmurs, rubs, or gallops. PULMONARY: Diminished breath sounds with diffuse rhonchi noted ABDOMEN: Soft, nontender, nondistended, normoactive bowel sounds. No palpable organomegaly. MUSCULOSKELETAL: No joint swelling or deformity. EXTREMITIES: No cyanosis, clubbing, or pedal edema. NEUROLOGICAL: Gross neurological examination did not reveal any focal deficits. SKIN: No rashes. - Labs CBC & Chem 7: 05/27/20 06:34 05/25/20 06:25 Labs: Abnormal Lab Results - Last 24 Hours (Table) 05/26/20 05/26/20 05/26/20 Range/Units 05:25 16:37 19:59 WBC (4.50-10.00) X 10*3/uL RBC (4.40-5.60) X 10*6/uL Hgb (13.0-17.0) g/dL Hct (39.6-50.0) % MCHC (32.0-37.0) g/dL Immature Gran # (0.00-0.04) X 10*3/uL Neutrophils # (1.80-7.70) X 10*3/uL Eosinophils # (0.04-0.35) X 10*3/uL D-Dimer (<0.60) mg/L FEU POC Glucose (mg/dL) 385 H 373 H (75-99) mg/dL Lactate Dehydrogenase 491 H (120-246) U/L C-Reactive Protein 9.4 H (0.0-0.8) mg/dL 05/27/20 05/27/20 05/27/20 Range/Units 06:34 06:34 06:50 WBC 10.80 H (4.50-10.00) X 10*3/uL RBC 4.12 L (4.40-5.60) X 10*6/uL Hgb 12.6 L (13.0-17.0) g/dL Hct 39.5 L (39.6-50.0) % MCHC 31.9 L (32.0-37.0) g/dL Immature Gran # 0.20 H (0.00-0.04) X 10*3/uL Neutrophils # 8.40 H (1.80-7.70) X 10*3/uL Eosinophils # 0.01 L (0.04-0.35) X 10*3/uL D-Dimer 1.60 H (<0.60) mg/L FEU POC Glucose (mg/dL) 171 H (75-99) mg/dL Lactate Dehydrogenase (120-246) U/L C-Reactive Protein (0.0-0.8) mg/dL 05/27/20 Range/Units 11:37 WBC (4.50-10.00) X 10*3/uL RBC (4.40-5.60) X 10*6/uL Hgb (13.0-17.0) g/dL Hct (39.6-50.0) % MCHC (32.0-37.0) g/dL Immature Gran # (0.00-0.04) X 10*3/uL Neutrophils # (1.80-7.70) X 10*3/uL Eosinophils # (0.04-0.35) X 10*3/uL D-Dimer (<0.60) mg/L FEU POC Glucose (mg/dL) 189 H (75-99) mg/dL Lactate Dehydrogenase (120-246) U/L C-Reactive Protein (0.0-0.8) mg/dL Microbiology - Last 24 Hours (Table) 05/20/20 19:34 Blood Culture - Final Blood No Growth after 144 hours 05/20/20 19:15 Blood Culture - Final Blood No Growth after 144 hours Assessment and Plan Assessment: -acute hypoxic respiratory failure: Secondary to covid 19 pneumonia patient ma intained on Decadron and vitamin and zinc supplements. Patient has received 2 doses of Tocilizumab and is continued on Lovenox. Monitor inflammatory markers. Patient currently on Airvo with intermittent nonrebreather. Pulmonary following -Type 2 diabetes mellitus uncontrolled elevated blood sugars secondary to systemic steroids, continue with pre-meal, sliding scale, and long-acting -Hyperkalemia, improved -Hypotonic hyponatremia, improved -Acute renal failure secondary to Covid 19: Improved, current creatinine is 1.2 -Hypertension -DVT subcutaneous Lovenox -Full code Plan: Continue with current medications. Will continue with dexamethasone along with vitamin and zinc supplements. Lovenox has been added and patient has received Tocilizumab x2. Pulmonary following . Repeat labs in the morning along with inflammatory markers. CMP ordered this morning currently pending. Patient c urrently on nonrebreather along with airvo requiring more oxygen. PT/OT evaluating the patient and patient continues to be weak requiring subacute rehab and social work consult was placed to discuss possible ECF upon discharge once stabilized. Will continue to monitor closely and make further recommendations based on the clinical course of the patient. Prognosis remains guarded.
[2020-05-27 13:45] LABS: African American GFR (CKD) 65.3 (60.0-200.0); Albumin 3.2 g/dL (3.80-4.90); Albumin/Globulin Ratio 1.19 (1.60-3.17); Anion Gap 11.4 mmol/L (4.00-12.00); Calcium 8.8 mg/dL (8.7-10.3); Carbon Dioxide 24.6 mmol/L (21.6-31.8); Globulin 2.7 g/dL (1.6-3.3); Non-African American GFR(CKD) 56.4 (60.0-200.0); Potassium 5.2 mmol/L (3.5-5.5); Total Bilirubin 0.4 mg/dL (0.2-1.2); Total Protein 5.9 g/dL (6.2-8.2)
[2020-05-27 16:32] LABS: Glucose,Whole Blood 328 mg/dL (75-99)
[2020-05-27 20:20] LABS: Glucose,Whole Blood 280 mg/dL (75-99)
[2020-05-27] MEDS: INSULIN DETEMIR (LEVEMIR) 100 UNIT/ML SYR SQ SCH (20:40)
[2020-05-28 07:17] LABS: Glucose,Whole Blood 121 mg/dL (75-99)
[2020-05-28] MEDS: INSULIN ASPART (NovoLOG) 100 UNIT/ML VIAL SQ SCH ×7 (07:22→20:39)
[2020-05-28] MEDS: METOPROLOL SUCCINATE (ER) 50 MG TAB.ER.24H PO SCH (07:33)
[2020-05-28] MEDS: glipiZIDE 10 MG TAB PO SCH ×2 (07:33→20:38)
[2020-05-28] MEDS: ATORVASTATIN 80 MG TAB PO SCH (07:33)
[2020-05-28] MEDS: ZINC SULFATE 220 MG CAP PO SCH (07:33)
[2020-05-28] MEDS: ASCORBIC ACID 500 MG TAB PO SCH (07:33)
[2020-05-28] MEDS: dexAMETHasone 2 MG TAB PO SCH (07:34)
[2020-05-28] MEDS: FAMOTIDINE 20 MG TAB PO SCH (07:34)
[2020-05-28] MEDS: ASPIRIN 81 MG PO SCH (07:35)
[2020-05-28] MEDS: CLOPIDOGREL 75 MG TAB PO SCH (07:35)
[2020-05-28] MEDS: PIOGLITAZONE 30 MG TAB PO SCH (07:36)
[2020-05-28] MEDS: ENOXAPARIN 40 MG/0.4 ML SYRINGE SQ SCH (07:36)
[2020-05-28 09:59] LABS: African American GFR (CKD) 65.3 (60.0-200.0); Albumin 3.3 g/dL (3.80-4.90); Albumin/Globulin Ratio 1.18 (1.60-3.17); Anion Gap 6.8 mmol/L (4.00-12.00); BUN/Creat Ratio 37.5 Ratio (12.00-20.00); C Reactive Protein 2.9 mg/dL (0.0-0.8); Calcium 8.9 mg/dL (8.7-10.3); Carbon Dioxide 28.2 mmol/L (21.6-31.8); Globulin 2.8 g/dL (1.6-3.3); Non-African American GFR(CKD) 56.4 (60.0-200.0); Potassium 5.1 mmol/L (3.5-5.5); Total Bilirubin 0.5 mg/dL (0.3-1.2); Total Protein 6.1 g/dL (6.2-8.2)
--- NOTE | 2020-05-28 10:14 | XR ---
EXAMINATION TYPE: XR chest 1V portable DATE OF EXAM: 05/28/2020 COMPARISON: 05/26/2020 INDICATION: Covid, short of breath TECHNIQUE: Single frontal view of the chest is obtained. FINDINGS: The heart size is normal. The pulmonary vasculature is upper limits for normal. Scattered subsegmental infiltrates are present through the lower lung waller bilaterally. Findings ar e worsening over the interval. IMPRESSION: 1. Bibasilar infiltrates which are nonspecific but worsening. Correlate for atypical pneumonia.
[2020-05-28] MEDS ORDERED: ACETAMINOPHEN TAB 325 MG TAB PO PRN (10:21)
[2020-05-28 11:47] LABS: Glucose,Whole Blood 104 mg/dL (75-99)
--- NOTE | 2020-05-28 12:26 | P.PN ---
Subjective Progress Note Date: 05/28/20 80-year-old male who presents emergency Department stating that he has had shortness of breath and feeling fatigued for at least 2 weeks. Patient states he has had exposure to COVID . Patient states he has had a fever. Patient states she's also states and smile. Patient also states she's had diarrhea. Patient denies any chest pain or palpitations. Patient denies any abdominal pain patient denies nausea vomiting diarrhea. According to EMS with the patient was coming in he was satting in the low 80s. Patient is currently on a few liters of oxygen and sat in mid 90s. Patient is a diabetic and has high blood pressure. Patient also has a pacemaker. Patient is presently on 2 L of oxygen was requiring 4 L yesterday. Patient was started on IV fluids patient creatinine went up to 1.6 baseline is around 1. Patient's blood sugars are highly elevated. Patient tests positive for Covid. 05/22/2020 Patient is presently on 2 L of oxygen appears to be doing better possibility of discharge tomorrow. Creatinine went up a bit to 1.6 baseline is around the 1. Patient was started on IV fluids will recheck the basic metabolic profile tomorrow. 05/23/2020 Patient seen and evaluated in follow-up continues to be on 2 L of oxygen and becomes dyspneic with exertion. Patient states he does not know wear oxygen at home. Pulmonary is following. Patient's blood sugars are elevated and will continue sliding scale at this time as patient is on steroids. Potassium was found to be slightly elevated at 5.5 and was given a dose of Kayexalate. Will repeat a.m. labs. Instructed and encouraged the patient to get up and increase activity as tolerated. 05/24/2020 Patient is presently in 2 does of hours and doing clinically well. Patient is on dexamethasone, vitamin supplements, subcutaneous heparin. No worsening shortness of breath, cough or congestion. D-dimer 1.02. Sodium 145. Potassium 5.1. Creatinine 1.3. LDH 485. C-reactive protein 4.4. His creatinine actually went up a little bit from 1.19-1.3 05/25/2020 Patient is fairly stable no significant improvement or worsening. Patient is still on 2 L of oxygen. We'll monitor him 1 more night. Continues to require oxygen patient probably can be discharged on 2 L tomorrow this can be tapered or discontinued as an outpatient. Patient d-dimer is bit worse compared to admission. Although other inflammatory markers are better 05/26/2020 Patient is seen this morning currently on nonrebreather and airvo as his oxygen was found to be 89% on 6 L of oxygen. Pulmonary is following. D-dimer has gone up at 1.70 along with lactate dehydrogenase at 491 and CRP is 9.4. Blood sugars continue to be elevated and patient is maintained on sliding scale along with long-acting and pre-meal insulin and will continue at this time. Patient continues on vitamin and zinc supplements along with Lovenox and dexamethasone daily. Patient is scheduled to receive Tocilizumab today. Will continue to monitor closely based on the clinical course of the patient. Patient continues to be weak and was seen and evaluated by physical therapy recommending subacute rehab and patient is now agreeable and a social work consult was placed. 05/27/2020 Patient is seen and evaluated this morning with no improvement in respiratory status. Patient remains on Airvo with supplemental nonrebreather. Patient is day 2 of receiving Tocilizumab. Will repeat a.m. chest x-ray along with inflammatory markers. D-dimer today was 1.60. White blood count has gone up in is 10.8, hemoglobin is 12.6. Patient is afebrile. To continue with dexametha sone, Lovenox, vitamin C and zinc supplements. Pulmonary is following. Had a discussion with the patient about CODE STATUS along with his son Mauricio and currently wish to remain a full code until talking with family member more extensively about the situation. Will continue to monitor closely. Prognosis remains guarded. 05/28/2020 Patient is seen this morning status post getting up to the bathroom and continues to be extremely dyspneic with any exertion and was found to be low 80s to 83% oxygenation. Patient continues on the airvo with a flow rate of 60 and FiO2 of 64 and is currently 91%. Patient denies any chest pain or palpitations. Patient is afebrile. Patient reports to tolerating diet with no nausea or vomiting noted. D-dimer continues to be elevated at 2.56, sodium today is 140 with a potassium of 5.1 and creatinine is 1.2. Blood sugars on the lower side this morning and will continue to monitor closely and treat accordingly with sliding scale. Inflammatory markers trending down. Pulmonary following closely. Chest x-ray today shows continued bibasilar infiltrates which are nonspecific but worsening. Constitutional: Reports fatigue, denied any fever. Cardio vascular: denied any chest pain, palpitations Gastrointestinal denied any nausea vomiting Pulmonary: Reports worsening shortness of breath Neurologic reports generalized weakness All inpatient medications were reviewed and appropriate changes in these medications as dictated in the interval history and assessment and plan. Objective - Vital Signs Vital signs: Vital Signs Temp 98.5 F 05/28/20 05:48 Pulse 67 05/28/20 05:48 Resp 19 05/28/20 05:48 BP 126/63 05/28/20 05:48 Pulse Ox 86 L 05/28/20 08:47 Intake & Output 05/27/20 05/28/20 05/28/20 18:59 06:59 18:59 Intake Total 600 Output Total 375 Balance 600 -375 Intake: Oral 600 Output: Urine 375 Other: Voiding Method Toilet # Voids 4 - Exam GENERAL: The patient is alert and oriented x3, not in any acute distress. Obese, currently on a nonrebreather and airvo at a flow rate of 60 with an FiO2 of 64 HEENT: Pupils are round and equally reacting to light. EOMI. No scleral icterus. No conjunctival pallor. Normocephalic, atraumatic. No pharyngeal erythema. No thyromegaly. CARDIOVASCULAR: S1 and S2 present. No murmurs, rubs, or gallops. PULMONARY: Diminished breath sounds with diffuse rhonchi noted ABDOMEN: Soft, nontender, nondistended, normoactive bowel sounds. No palpable organomegaly. MUSCULOSKELETAL: No joint swelling or deformity. EXTREMITIES: No cyanosis, clubbing, or pedal edema. NEUROLOGICAL: Gross neurological examination did not reveal any focal deficits. SKIN: No rashes. - Labs CBC & Chem 7: 05/27/20 06:34 05/28/20 06:25 Labs: Abnormal Lab Results - Last 24 Hours (Table) 05/27/20 05/27/20 05/27/20 Range/Units 06:34 06:34 11:37 WBC 10.80 H (4.50-10.00) X 10*3/uL RBC 4.12 L (4.40-5.60) X 10*6/uL Hgb 12.6 L (13.0-17.0) g/dL Hct 39.5 L (39.6-50.0) % MCHC 31.9 L (32.0-37.0) g/dL Immature Gran # 0.20 H (0.00-0.04) X 10*3/uL Neutrophils # 8.40 H (1.80-7.70) X 10*3/uL Eosinophils # 0.01 L (0.04-0.35) X 10*3/uL D-Dimer (<0.60) mg/L FEU BUN 42.0 H (9.0-27.0) mg/dL Est GFR (CKD-EPI)NonAf 56.4 L (60.0-200.0) BUN/Creatinine Ratio 35.00 H (12.00-20.00) Ratio Glucose 195 H (70-110) mg/dL POC Glucose (mg/dL) 189 H (75-99) mg/dL Total Protein 5.9 L (6.2-8.2) g/dL Albumin 3.20 L (3.80-4.90) g/dL Albumin/Globulin Ratio 1.19 L (1.60-3.17) g/dL 05/27/20 05/27/20 05/28/20 Range/Units 16:31 20:18 06:25 WBC (4.50-10.00) X 10*3/uL RBC (4.40-5.60) X 10*6/uL Hgb (13.0-17.0) g/dL Hct (39.6-50.0) % MCHC (32.0-37.0) g/dL Immature Gran # (0.00-0.04) X 10*3/uL Neutrophils # (1.80-7.70) X 10*3/uL Eosinophils # (0.04-0.35) X 10*3/uL D-Dimer 2.56 H (<0.60) mg/L FEU BUN (9.0-27.0) mg/dL Est GFR (CKD-EPI)NonAf (60.0-200.0) BUN/Creatinine Ratio (12.00-20.00) Ratio Glucose (70-110) mg/dL POC Glucose (mg/dL) 328 H 280 H (75-99) mg/dL Total Protein (6.2-8.2) g/dL Albumin (3.80-4.90) g/dL Albumin/Globulin Ratio (1.60-3.17) g/dL 05/28/20 Range/Units 07:05 WBC (4.50-10.00) X 10*3/uL RBC (4.40-5.60) X 10*6/uL Hgb (13.0-17.0) g/dL Hct (39.6-50.0) % MCHC (32.0-37.0) g/dL Immature Gran # (0.00-0.04) X 10*3/uL Neutrophils # (1.80-7.70) X 10*3/uL Eosinophils # (0.04-0.35) X 10*3/uL D-Dimer (<0.60) mg/L FEU BUN (9.0-27.0) mg/dL Est GFR (CKD-EPI)NonAf (60.0-200.0) BUN/Creatinine Ratio (12.00-20.00) Ratio Glucose (70-110) mg/dL POC Glucose (mg/dL) 121 H (75-99) mg/dL Total Protein (6.2-8.2) g/dL Albumin (3.80-4.90) g/dL Albumin/Globulin Ratio (1.60-3.17) g/dL Assessment and Plan Assessment: -acute hypoxic respiratory failure: Secondary to covid 19 pneumonia patient maintained on Decadron and vitamin and zinc supplements. Patient has received 2 doses of Tocilizumab and is continued on Lovenox. inflammatory markers trending down. Patient currently on Airvo with intermittent nonrebreather. Pulmonary following -Type 2 diabetes mellitus uncontrolled elevated blood sugars secondary to systemic steroids, continue with pre-meal, sliding scale, and long-acting -Hyperkalemia, improved -Hypotonic hyponatremia, improved -Acute renal failure secondary to Covid 19: Improved, current creatinine is 1.2 -Hypertension -DVT subcutaneous Lovenox -Full code Plan: Continue with current medications. Will continue with dexamethasone along with vitamin and zinc supplements. Lovenox has been added and patient has received Tocilizumab x2. Pulmonary following . Patient currently on nonrebreather along with airvo requiring more oxygen. PT/OT evaluating the patient and patient co ntinues to be weak requiring subacute rehab and social work consult was placed to discuss possible ECF upon discharge once stabilized. Will continue to monitor closely and make further recommendations based on the clinical course of the patient. Prognosis remains guarded.
--- NOTE | 2020-05-28 14:18 | P.PN ---
Subjective Progress Note Date: 05/28/20 80-year-old male, who was brought to the emergency department by EMS. The patient apparently has had 2 weeks' worth of increasing shortness of breath, and significant fatigue. The patient also had chest congestion. He had a fever. The patient states that he is just not been feeling well and getting progressively worse. He also apparently had an episode or 2 of diarrhea. The patient denied any chest pain or chest pressure or palpitations. The patient also denied nausea, vomiting, and abdominal pain. Apparently when EMS arrived, the patient's saturations were in the low 80s on room air. For that reason, he was transported in, evaluated, and admitted with a diagnosis of COVID 19 19 pneumonia. The patient does have a history of diabetes, hypertension, and a previous pacemaker insertion. White count was 4.6, hemoglobin 12.5, hematocrit 37.1, and platelet count 153,000. PT, INR, and PTT were all normal. D-dimer was 0.77. Sodium 136, potassium 4.5, chlorides 102, CO2 26, anion gap 8, BUN 47, and creatinine 1.63. Ferritin was 985, LDH 818, C-reactive protein 58, and pro-calcitonin level was 0.12. Chest x-ray did show some interstitial infiltrates. On 05/22/2020 patient seen in follow-up on medical floor. he is on 2 L of oxygen his pulse ox is 90-94%, breathing comfortably, no fever or chills, blood pressure has been stable. Denies any worsening dyspnea or hypoxemia, he has a mild cough, no chest discomfort. He continues on oral Decadron 6 mg daily, IV hydration, vitamins, d-dimer was low at 0.77, patient is on subcu heparin for DVT prophylaxis, pro-calcitonin level was low, inflammatory markers were not significantly elevated on admission. Clinically symptoms have not progressed, and patient will be considered for discharge in next 24 hours. The patient is seen today 05/23/2020 in follow-up on the regular medical floor. He is currently sitting up in chair at the bedside. Awake and alert in no acute distress. Continue O2 saturations in the low 90s on 2 L/m per nasal cannula. Afebrile. Hemodynamically stable. Blood cultures reveal no growth. Blood g lucose 202. Sodium 143. Potassium 5.5. Creatinine 1.19. He remains on dexamethasone, so continues heparin, vitamin supplements. Chest x-ray continues to show bilateral multifocal opacities consistent with CoVID infection. No change. The patient is seen today 05/24/2020 in follow-up on the regular medical floor. He is currently resting comfortably in bed. Awake and alert in no acute distre ss. He is maintaining O2 saturations in the 90s on 2 L/m per nasal cannula. He's been on dexamethasone, vitamin supplements, subcutaneous heparin. No worsening shortness of breath, cough or congestion. D-dimer 1.02. Sodium 145. Potassium 5.1. Creatinine 1.3. LDH 485. C-reactive protein 4.4. The patient is seen today 05/25/2020 in follow-up on the regular medical floor. He is currently resting quite comfortably in bed. Maintaining O2 saturations in the low 90s on 2 L/m per nasal cannula. Sodium 144. Potassium 4.7. Creatinine 1.2. Glucose 173. He remains on dexamethasone, heparin, vitamin supplements. 05/26/2020 on seeing the patient for a follow-up regarding the patient's acute hypoxic respiratory failure due to Covid 19 related pneumonia. The patient was not a candidate for Remdesivir, Tocilizumab or convalescent plasma, and the patient is currently on Decadron 6 mg on a daily basis and addition to Levemir insulin 50 units daily at bedtime and NovoLog 6 units 3 times a day with meals and a sliding scale coverage. The patient was on 2 L about 2 by nasal cannula with pulse ox of 93%. Earlier this morning, the patient's oxidation progressively got worse in the patient is currently on 100% nonrebreather facemask maintaining a saturation above 90% at around 94%. Overall, the patient is doing well. Creatinine is at 1.2. The patient had a CRP level of 4.4 with an LDH level of 485 from 05/24/2020. Inflammatory markers are being monitored. Last d-dimer from 05/24/2020 was 1.02. Blood cultures were negative repeat chest x-ray was done today and the findings are essentially stable and the patient has patchy bilateral perihilar pulmonary infiltrates without any significant interval change. D-dimer from today is at 1.7 and the patient remains on Lovenox. 05/27/2020 the patient is being seen for a follow-up. The patient is currently on high flow oxygen at 6 L. Note that the patient was on 100% nonrebreather facemask and was switched him to a high flow oxygen yesterday at 60 L. As part of his treatment, the patient received steroids and currently is receiving dexamethasone 6 mg by mouth daily. He is also Toci 2 yesterday and today. He completed treatment without any major side effects. Note that the patient was on low-flow oxygen and he progressively got worse requiring 100% nonrebreather and subsequent high flow oxygen. On today's evaluation, his white cell count is at 10. His d-dimer is at 1.6. Rest of the inflammatory markers have not been checked and this will be repeated tomorrow. LDH from yesterday was 491 with a CRP of 9.4. Otherwise, his renal function shows a stable creatinine of 1.2. The patient has been on FiO2 of 60% with a high flow oxygen of 60 L and the patient has been essentially stable since yesterday. No other significant events. Remains on Lovenox 40 mg subcu on a daily basis. 05/28/2020, the patient is still on high flow oxygen and 60 L. He is not utilizing the 100% nonrebreather facemask this morning. Note that the patient has received steroids, and he remains on Decadron 6 mg by mouth daily. He also completed Tocilizumab. On today's evaluation, chest x-ray findings are stable without any interval change in the bilateral pulmonary infiltrates. The patient is resting comfortably in bed. He is also able to move on a recliner. Labs today shows an LDH of 414 and a CRP of 2.9 and the patient is d-dimer is at 2.56. The patient remains on Lovenox 40 mg subcu on a daily basis. He is on Levemir insulin 50 units daily along with NovoLog 6 units with meals plus a sliding coverage. I will say his condition essentially the same as unchanged compared to yesterday. He is not doing much in progress for now. Objective - Vital Signs Vital signs: Vital Signs Temp 97.8 F 05/28/20 10:00 Pulse 62 05/28/20 10:00 Resp 22 05/28/20 10:00 BP 111/63 05/28/20 10:00 Pulse Ox 91 L 05/28/20 11:43 Intake & Output 05/27/20 05/28/20 05/28/20 18:59 06:59 18:59 Intake Total 600 Output Total 375 Balance 600 -375 Intake: Oral 600 Output: Urine 375 Other: Voiding Method Toilet Toilet # Voids 4 - Exam GENERAL EXAM: Alert, pleasant, 80-year-old male patient, on 60l with an FiO2 of 65 HEAD: Normocephalic/atraumatic. EYES: Normal reaction of pupils, equal size. Conjunctiva pink, sclera white. NOSE: Clear with pink turbinates. THROAT: No erythema or exudates. NECK: No masses, no JVD, no thyroid enlargement, no adenopathy. CHEST: No chest wall deformity. Symmetrical expansion. LUNGS: Equal air entry with bibasilar coarse crackles CVS: Regular rate and rhythm, normal S1 and S2, no gallops, no murmurs, no rubs ABDOMEN: Soft, nontender. No hepatosplenomegaly, normal bowel so milligrams unds, no guarding or rigidity. EXTREMITIES: No clubbing, no edema, no cyanosis, 2+ pulses and upper and lower extremities. MUSCULOSKELETAL: Muscle strength and tone normal. SPINE: No scoliosis or deformity SKIN: No rashes CENTRAL NERVOUS SYSTEM: No focal deficits, tone is normal in all 4 extremities. PSYCHIATRIC: Alert and oriented -3. Appropriate affect. Intact judgment and insight. - Labs CBC & Chem 7: 05/27/20 06:34 05/28/20 06:25 Labs: Abnormal Lab Results - Last 24 Hours (Table) 05/27/20 05/27/20 05/28/20 Range/Units 16:31 20:18 06:25 D-Dimer 2.56 H (<0.60) mg/L FEU BUN (9.0-27.0) mg/dL Est GFR (CKD-EPI)NonAf (60.0-200.0) BUN/Creatinine Ratio (12.00-20.00) Ratio Glucose (70-110) mg/dL POC Glucose (mg/dL) 328 H 280 H (75-99) mg/dL Lactate Dehydrogenase (120-246) U/L C-Reactive Protein (0.0-0.8) mg/dL Total Protein (6.2-8.2) g/dL Albumin (3.80-4.90) g/dL Albumin/Globulin Ratio (1.60-3.17) g/dL 05/28/20 05/28/20 05/28/20 Range/Units 06:25 07:05 11:35 D-Dimer (<0.60) mg/L FEU BUN 45.0 H (9.0-27.0) mg/dL Est GFR (CKD-EPI)NonAf 56.4 L (60.0-200.0) BUN/Creatinine Ratio 37.50 H (12.00-20.00) Ratio Glucose 117 H (70-110) mg/dL POC Glucose (mg/dL) 121 H 104 H (75-99) mg/dL Lactate Dehydrogenase 414 H (120-246) U/L C-Reactive Protein 2.9 H (0.0-0.8) mg/dL Total Protein 6.1 L (6.2-8.2) g/dL Albumin 3.30 L (3.80-4.90) g/dL Albumin/Globulin Ratio 1.18 L (1.60-3.17) g/dL Assessment and Plan Plan: 1 Acute hypoxic respiratory failure secondary to CoVID 19 pneumonia, currently on Decadron 6 mg and this received Tocilizumab 2 doses, the patient on high flow oxygen 60 L with an FiO2 of 65%.. The chest x-ray findings are stable without any interval improvement or change. Inflammatory markers are down with LDH is down to 414 and the CRP level is down to 2.9. D-dimer is at 156 and the patient remains on Lovenox. 2 History of diabetes mellitus type 2, currently on Levemir insulin for blood sugar control 3 History of hypertension 4 History of chronic sinus disease 5 History of diverticulitis, status post bowel resection Plan: Continue Decadron Continue Lovenox 40 mg subcu for DVT prophylaxis Completed Tocilizumab 2 n Repeat chest x-ray for a markers of this morning was noted and no major changes. Chest x-ray findings are stable. The markers of lower. Keep the high flow oxygen 60 L with an FiO2 of 65% Titrate the FiO2 as tolerated We will continue to follow
[2020-05-28 17:18] LABS: Glucose,Whole Blood 229 mg/dL (75-99)
[2020-05-28 20:37] LABS: Glucose,Whole Blood 301 mg/dL (75-99)
[2020-05-28] MEDS: INSULIN DETEMIR (LEVEMIR) 100 UNIT/ML SYR SQ SCH (20:39)
[2020-05-29 07:32] LABS: Glucose,Whole Blood 77 mg/dL (75-99)
[2020-05-29] MEDS: INSULIN ASPART (NovoLOG) 100 UNIT/ML VIAL SQ SCH ×7 (07:58→20:39)
[2020-05-29] MEDS: CLOPIDOGREL 75 MG TAB PO SCH (08:04)
[2020-05-29] MEDS: ASPIRIN 81 MG PO SCH (08:04)
[2020-05-29] MEDS: ASCORBIC ACID 500 MG TAB PO SCH (08:04)
[2020-05-29] MEDS: glipiZIDE 10 MG TAB PO SCH ×2 (08:04→20:39)
[2020-05-29] MEDS: FAMOTIDINE 20 MG TAB PO SCH (08:04)
[2020-05-29] MEDS: PIOGLITAZONE 30 MG TAB PO SCH (08:04)
[2020-05-29] MEDS: dexAMETHasone 2 MG TAB PO SCH (08:04)
[2020-05-29] MEDS: METOPROLOL SUCCINATE (ER) 50 MG TAB.ER.24H PO SCH (08:04)
[2020-05-29] MEDS: ZINC SULFATE 220 MG CAP PO SCH (08:04)
[2020-05-29] MEDS: ENOXAPARIN 40 MG/0.4 ML SYRINGE SQ SCH (08:04)
[2020-05-29] MEDS: ATORVASTATIN 80 MG TAB PO SCH (08:04)
[2020-05-29 11:58] LABS: Glucose,Whole Blood 155 mg/dL (75-99)
[2020-05-29 12:30] LABS: Basophils % (A) 0 %; Eosinophils # (A) 0.2 k/uL (0-0.7); Eosinophils % (A) 2 %; HCT 40.3 % (39.0-53.0); HGB 13.2 gm/dL (13.0-17.5); Lymphocytes # (A) 0.8 k/uL (1.0-4.8); Lymphocytes % (A) 6 %; MCH 30.5 pg (25.0-35.0); MCHC 32.7 g/dL (31.0-37.0); MCV 93.2 fL (80.0-100.0); Mean Platelet Volume 8.6; Monocytes # (A) 0.4 k/uL (0-1.0); Monocytes % (A) 3 %; Neutrophils # (A) 12.3 k/uL (1.3-7.7); Neutrophils % (A) 89 %; Platelet Count 277 k/uL (150-450); RBC 4.32 m/uL (4.30-5.90); WBC 13.9 k/uL (3.8-10.6)
[2020-05-29 12:35] LABS: African American GFR (CKD) 63 (>60 ml/min/1.73 sqM); Anion Gap 5 mmol/L; Blood Urea Nitrogen 51 mg/dL (9-20); C Reactive Protein 12.6 mg/L (<10.0); Calcium 8.8 mg/dL (8.4-10.2); Carbon Dioxide 29 mmol/L (22-30); Chloride 103 mmol/L (98-107); Glucose 181 mg/dL (74-99); LDH 1221 U/L (313-618); Non-African American GFR(CKD) 55 (>60 ml/min/1.73 sqM); Potassium 5.1 mmol/L (3.5-5.1); Sodium 137 mmol/L (137-145)
--- NOTE | 2020-05-29 14:29 | P.PN ---
Subjective Progress Note Date: 05/29/20 80-year-old male, who was brought to the emergency department by EMS. The patient apparently has had 2 weeks' worth of increasing shortness of breath, and significant fatigue. The patient also had chest congestion. He had a fever. The patient states that he is just not been feeling well and getting progressively worse. He also apparently had an episode or 2 of diarrhea. The patient denied any chest pain or chest pressure or palpitations. The patient also denied nausea, vomiting, and abdominal pain. Apparently when EMS arrived, the patient's saturations were in the low 80s on room air. For that reason, he was transported in, evaluated, and admitted with a diagnosis of COVID 19 19 pneumonia. The patient does have a history of diabetes, hypertension, and a previous pacemaker insertion. White count was 4.6, hemoglobin 12.5, hematocrit 37.1, and platelet count 153,000. PT, INR, and PTT were all normal. D-dimer was 0.77. Sodium 136, potassium 4.5, chlorides 102, CO2 26, anion gap 8, BUN 47, and creatinine 1.63. Ferritin was 985, LDH 818, C-reactive protein 58, and pro-calcitonin level was 0.12. Chest x-ray did show some interstitial infiltrates. On 05/22/2020 patient seen in follow-up on medical floor. he is on 2 L of oxygen his pulse ox is 90-94%, breathing comfortably, no fever or chills, blood pressure has been stable. Denies any worsening dyspnea or hypoxemia, he has a mild cough, no chest discomfort. He continues on oral Decadron 6 mg daily, IV hydration, vitamins, d-dimer was low at 0.77, patient is on subcu heparin for DVT prophylaxis, pro-calcitonin level was low, inflammatory markers were not significantly elevated on admission. Clinically symptoms have not progressed, and patient will be considered for discharge in next 24 hours. The patient is seen today 05/23/2020 in follow-up on the regular medical floor. He is currently sitting up in chair at the bedside. Awake and alert in no acute distress. Continue O2 saturations in the low 90s on 2 L/m per nasal cannula. Afebrile. Hemodynamically stable. Blood cultures reveal no growth. Blood g lucose 202. Sodium 143. Potassium 5.5. Creatinine 1.19. He remains on dexamethasone, so continues heparin, vitamin supplements. Chest x-ray continues to show bilateral multifocal opacities consistent with CoVID infection. No change. The patient is seen today 05/24/2020 in follow-up on the regular medical floor. He is currently resting comfortably in bed. Awake and alert in no acute distre ss. He is maintaining O2 saturations in the 90s on 2 L/m per nasal cannula. He's been on dexamethasone, vitamin supplements, subcutaneous heparin. No worsening shortness of breath, cough or congestion. D-dimer 1.02. Sodium 145. Potassium 5.1. Creatinine 1.3. LDH 485. C-reactive protein 4.4. The patient is seen today 05/25/2020 in follow-up on the regular medical floor. He is currently resting quite comfortably in bed. Maintaining O2 saturations in the low 90s on 2 L/m per nasal cannula. Sodium 144. Potassium 4.7. Creatinine 1.2. Glucose 173. He remains on dexamethasone, heparin, vitamin supplements. 05/26/2020 on seeing the patient for a follow-up regarding the patient's acute hypoxic respiratory failure due to Covid 19 related pneumonia. The patient was not a candidate for Remdesivir, Tocilizumab or convalescent plasma, and the patient is currently on Decadron 6 mg on a daily basis and addition to Levemir insulin 50 units daily at bedtime and NovoLog 6 units 3 times a day with meals and a sliding scale coverage. The patient was on 2 L about 2 by nasal cannula with pulse ox of 93%. Earlier this morning, the patient's oxidation progressively got worse in the patient is currently on 100% nonrebreather facemask maintaining a saturation above 90% at around 94%. Overall, the patient is doing well. Creatinine is at 1.2. The patient had a CRP level of 4.4 with an LDH level of 485 from 05/24/2020. Inflammatory markers are being monitored. Last d-dimer from 05/24/2020 was 1.02. Blood cultures were negative repeat chest x-ray was done today and the findings are essentially stable and the patient has patchy bilateral perihilar pulmonary infiltrates without any significant interval change. D-dimer from today is at 1.7 and the patient remains on Lovenox. 05/27/2020 the patient is being seen for a follow-up. The patient is currently on high flow oxygen at 6 L. Note that the patient was on 100% nonrebreather facemask and was switched him to a high flow oxygen yesterday at 60 L. As part of his treatment, the patient received steroids and currently is receiving dexamethasone 6 mg by mouth daily. He is also Toci 2 yesterday and today. He completed treatment without any major side effects. Note that the patient was on low-flow oxygen and he progressively got worse requiring 100% nonrebreather and subsequent high flow oxygen. On today's evaluation, his white cell count is at 10. His d-dimer is at 1.6. Rest of the inflammatory markers have not been checked and this will be repeated tomorrow. LDH from yesterday was 491 with a CRP of 9.4. Otherwise, his renal function shows a stable creatinine of 1.2. The patient has been on FiO2 of 60% with a high flow oxygen of 60 L and the patient has been essentially stable since yesterday. No other significant events. Remains on Lovenox 40 mg subcu on a daily basis. 05/28/2020, the patient is still on high flow oxygen and 60 L. He is not utilizing the 100% nonrebreather facemask this morning. Note that the patient has received steroids, and he remains on Decadron 6 mg by mouth daily. He also completed Tocilizumab. On today's evaluation, chest x-ray findings are stable without any interval change in the bilateral pulmonary infiltrates. The patient is resting comfortably in bed. He is also able to move on a recliner. Labs today shows an LDH of 414 and a CRP of 2.9 and the patient is d-dimer is at 2.56. The patient remains on Lovenox 40 mg subcu on a daily basis. He is on Levemir insulin 50 units daily along with NovoLog 6 units with meals plus a sliding coverage. I will say his condition essentially the same as unchanged compared to yesterday. He is not doing much in progress for now. On today's evaluation of 05/29/2020 the patient is being seen for a follow-up. The patient remains on high flow oxygen with a flow of 6 L an FiO2 of 60%. His current pulse ox is around 88%. He is afebrile. He is doing well. Sitting up on a chair. No signs of any respiratory distress. His breathing is nonlabored and he doesn't have any significant cough unless he takes a deep inspiration. The patient had follow-up blood work today. His LDL level is up 1221 and a CRP level is up to 12.6 and his d-dimer currently is at 2.95. I cannot explain the rise in these inflammatory markers. His creatinine is at 1.2. Was a causative 13.7 with a hemoglobin of 13.2. His chest x-ray from yesterday was showing right basilar infiltrates which are nonspecific and it was mentioned that he was getting worse. The patient remains on Decadron 6 mg by mouth daily. He remains on 50 units of Levemir insulin along with 6 units of NovoLog [id number]. He remains on aspirin. He remains on Lovenox for DVT prophylaxis 40 mg subcu. Objective - Vital Signs Vital signs: Vital Signs Temp 97.6 F 05/29/20 10:00 Pulse 59 L 05/29/20 10:00 Resp 20 05/29/20 10:00 BP 112/63 05/29/20 10:00 Pulse Ox 88 L 05/29/20 10:00 Intake & Output 05/28/20 05/29/20 05/29/20 18:59 06:59 18:59 Intake Total 120 Output Total 1000 750 Balance -1000 -750 120 Intake: Oral 120 Output: Urine 1000 750 Other: Voiding Method Toilet Toilet Toilet - Exam GENERAL EXAM: Alert, pleasant, 80-year-old male patient, on 60l with an FiO2 of 65 HEAD: Normocephalic/atraumatic. EYES: Normal reaction of pupils, equal size. Conjunctiva pink, sclera white. NOSE: Clear with pink turbinates. THROAT: No erythema or exudates. NECK: No masses, no JVD, no thyroid enlargement, no adenopathy. CHEST: No chest wall deformity. Symmetrical expansion. LUNGS: Equal air entry with bibasilar coarse crackles CVS: Regular rate and rhythm, normal S1 and S2, no gallops, no murmurs, no rubs ABDOMEN: Soft, nontender. No hepatosplenomegaly, normal bowel so milligrams unds, no guarding or rigidity. EXTREMITIES: No clubbing, no edema, no cyanosis, 2+ pulses and upper and lower extremities. MUSCULOSKELETAL: Muscle strength and tone normal. SPINE: No scoliosis or deformity SKIN: No rashes CENTRAL NERVOUS SYSTEM: No focal deficits, tone is normal in all 4 extremities. PSYCHIATRIC: Alert and oriented -3. Appropriate affect. Intact judgment and insight. - Labs CBC & Chem 7: 05/29/20 11:57 05/29/20 11:57 Labs: Abnormal Lab Results - Last 24 Hours (Table) 05/28/20 05/28/20 05/29/20 Range/Units 17:11 20:35 11:55 WBC (3.8-10.6) k/uL Neutrophils # (1.3-7.7) k/uL Lymphocytes # (1.0-4.8) k/uL D-Dimer (<0.60) mg/L FEU BUN (9-20) mg/dL Glucose (74-99) mg/dL POC Glucose (mg/dL) 229 H 301 H 155 H (75-99) mg/dL Lactate Dehydrogenase (313-618) U/L C-Reactive Protein (<10.0) mg/L 05/29/20 05/29/20 05/29/20 Range/Units 11:57 11:57 11:57 WBC 13.9 H (3.8-10.6) k/uL Neutrophils # 12.3 H (1.3-7.7) k/uL Lymphocytes # 0.8 L (1.0-4.8) k/uL D-Dimer 2.95 H (<0.60) mg/L FEU BUN 51 H (9-20) mg/dL Glucose 181 H (74-99) mg/dL POC Glucose (mg/dL) (75-99) mg/dL Lactate Dehydrogenase 1221 H (313-618) U/L C-Reactive Protein 12.6 H (<10.0) mg/L Assessment and Plan Plan: 1 Acute hypoxic respiratory failure secondary to CoVID 19 pneumonia, currently on Decadron 6 mg and this received Tocilizumab 2 doses, the patient on high flow oxygen 60 L with an FiO2 of 65%.. The chest x-ray findings are stable without any interval improvement or change. Inflammatory markers are down with LDH is down to 414 and the CRP level is down to 2.9. Subsequently, the LDH and the CRP went up and the d-dimer is slightly also elevated. Despite this rise in inflammatory markers, the patient is clinically unchanged. 2 History of diabetes mellitus type 2, currently on Levemir insulin for blood sugar control 3 History of hypertension 4 History of chronic sinus disease 5 History of diverticulitis, status post bowel resection Plan: Continue steroids and stop the Decadron is with patient Solu-Medrol. Continue Lovenox 40 mg subcu for DVT prophylaxis Completed Tocilizumab 2 Repeat chest x-ray for a markers of this morning was noted and no major changes. Chest x-ray findings are stable. The markers are fluctuating. After the decline, the LDH and the d-dimer and the CRP are back elevated. Keep the high flow oxygen 60 L with an FiO2 of 65% Titrate the FiO2 as tolerated We will continue to follow
--- NOTE | 2020-05-29 15:00 | P.PN ---
Subjective Progress Note Date: 05/29/20 80-year-old male who presents emergency Department stating that he has had shortness of breath and feeling fatigued for at least 2 weeks. Patient states he has had exposure to COVID . Patient states he has had a fever. Patient states she's also states and smile. Patient also states she's had diarrhea. Patient denies any chest pain or palpitations. Patient denies any abdominal pain patient denies nausea vomiting diarrhea. According to EMS with the patient was coming in he was satting in the low 80s. Patient is currently on a few liters of oxygen and sat in mid 90s. Patient is a diabetic and has high blood pressure. Patient also has a pacemaker. Patient is presently on 2 L of oxygen was requiring 4 L yesterday. Patient was started on IV fluids patient creatinine went up to 1.6 baseline is around 1. Patient's blood sugars are highly elevated. Patient tests positive for Covid. 05/22/2020 Patient is presently on 2 L of oxygen appears to be doing better possibility of discharge tomorrow. Creatinine went up a bit to 1.6 baseline is around the 1. Patient was started on IV fluids will recheck the basic metabolic profile tomorrow. 05/23/2020 Patient seen and evaluated in follow-up continues to be on 2 L of oxygen and becomes dyspneic with exertion. Patient states he does not know wear oxygen at home. Pulmonary is following. Patient's blood sugars are elevated and will continue sliding scale at this time as patient is on steroids. Potassium was found to be slightly elevated at 5.5 and was given a dose of Kayexalate. Will repeat a.m. labs. Instructed and encouraged the patient to get up and increase activity as tolerated. 05/24/2020 Patient is presently in 2 does of hours and doing clinically well. Patient is on dexamethasone, vitamin supplements, subcutaneous heparin. No worsening shortness of breath, cough or congestion. D-dimer 1.02. Sodium 145. Potassium 5.1. Creatinine 1.3. LDH 485. C-reactive protein 4.4. His creatinine actually went up a little bit from 1.19-1.3 05/25/2020 Patient is fairly stable no significant improvement or worsening. Patient is still on 2 L of oxygen. We'll monitor him 1 more night. Continues to require oxygen patient probably can be discharged on 2 L tomorrow this can be tapered or discontinued as an outpatient. Patient d-dimer is bit worse compared to admission. Although other inflammatory markers are better 05/26/2020 Patient is seen this morning currently on nonrebreather and airvo as his oxygen was found to be 89% on 6 L of oxygen. Pulmonary is following. D-dimer has gone up at 1.70 along with lactate dehydrogenase at 491 and CRP is 9.4. Blood sugars continue to be elevated and patient is maintained on sliding scale along with long-acting and pre-meal insulin and will continue at this time. Patient continues on vitamin and zinc supplements along with Lovenox and dexamethasone daily. Patient is scheduled to receive Tocilizumab today. Will continue to monitor closely based on the clinical course of the patient. Patient continues to be weak and was seen and evaluated by physical therapy recommending subacute rehab and patient is now agreeable and a social work consult was placed. 05/27/2020 Patient is seen and evaluated this morning with no improvement in respiratory status. Patient remains on Airvo with supplemental nonrebreather. Patient is day 2 of receiving Tocilizumab. Will repeat a.m. chest x-ray along with inflammatory markers. D-dimer today was 1.60. White blood count has gone up in is 10.8, hemoglobin is 12.6. Patient is afebrile. To continue with dexametha sone, Lovenox, vitamin C and zinc supplements. Pulmonary is following. Had a discussion with the patient about CODE STATUS along with his son Mauricio and currently wish to remain a full code until talking with family member more extensively about the situation. Will continue to monitor closely. Prognosis remains guarded. 05/28/2020 Patient is seen this morning status post getting up to the bathroom and continues to be extremely dyspneic with any exertion and was found to be low 80s to 83% oxygenation. Patient continues on the airvo with a flow rate of 60 and FiO2 of 64 and is currently 91%. Patient denies any chest pain or palpitations. Patient is afebrile. Patient reports to tolerating diet with no nausea or vomiting noted. D-dimer continues to be elevated at 2.56, sodium today is 140 with a potassium of 5.1 and creatinine is 1.2. Blood sugars on the lower side this morning and will continue to monitor closely and treat accordingly with sliding scale. Inflammatory markers trending down. Pulmonary following closely. Chest x-ray today shows continued bibasilar infiltrates which are nonspecific but worsening. 05/29/2020 Patient is seen in follow-up this morning and continues to be on Airvo no significant change. Patient was on dexamethasone all being transitioned to IV Solu-Medrol and will continue with Accu-Cheks and close glycemic control with pre-meal, long-acting, and sliding scale. White blood count is 13.9, hemoglobin is stable at 13.2, d-dimer is 2.95, sodium is 137, potassium is 5.1, creatinine slightly elevated at 1.24. Inflammatory markers have gone up. Patient is sitting up in the chair and denies any chest pain or worsening shortness of breath. Patient states he feels he is about the same. Patient also states he has been sleeping a lot and tolerating diet with no reports of nausea or vomiting. Discussed with patient about increasing activity as tolerated although patient is extremely dyspneic with minimal exertion. Constitutional: Reports fatigue, denied any fever. Cardio vascular: denied any chest pain, palpitations Gastrointestinal denied any nausea vomiting Pulmonary: Reports continued shortness of breath Neurologic reports generalized weakness All inpatient medications were reviewed and appropriate changes in these medications as dictated in the interval history and assessment and plan. Objective - Vital Signs Vital signs: Vital Signs Temp 97.7 F 05/29/20 05:46 Pulse 60 05/29/20 05:46 Resp 20 05/29/20 05:46 BP 118/73 05/29/20 05:46 Pulse Ox 90 L 05/29/20 05:46 Intake & Output 05/28/20 05/29/20 05/29/20 18:59 06:59 18:59 Output Total 1000 750 Balance -1000 -750 Output: Urine 1000 750 Other: Voiding Method Toilet Toilet - Exam GENERAL: The patient is alert and oriented x3, not in any acute distress. Obese, currently on a nonrebreather and airvo at a flow rate of 60 with an FiO2 of 62, slowly weaning as tolerated HEENT: Pupils are round and equally reacting to light. EOMI. No scleral icterus. No conjunctival pallor. Normocephalic, atraumatic. No pharyngeal erythema. No thyromegaly. CARDIOVASCULAR: S1 and S2 present. No murmurs, rubs, or gallops. PULMONARY: Diminished breath sounds with diffuse rhonchi noted ABDOMEN: Soft, nontender, nondistended, normoactive bowel sounds. No palpable organomegaly. MUSCULOSKELETAL: No joint swelling or deformity. EXTREMITIES: No cyanosis, clubbing, or pedal edema. NEUROLOGICAL: Gross neurological examination did not reveal any focal deficits. SKIN: No rashes. - Labs CBC & Chem 7: 05/29/20 11:57 05/29/20 11:57 Labs: Abnormal Lab Results - Last 24 Hours (Table) 05/28/20 05/28/20 05/28/20 Range/Units 06:25 11:35 17:11 BUN 45.0 H (9.0-27.0) mg/dL Est GFR (CKD-EPI)NonAf 56.4 L (60.0-200.0) BUN/Creatinine Ratio 37.50 H (12.00-20.00) Ratio Glucose 117 H (70-110) mg/dL POC Glucose (mg/dL) 104 H 229 H (75-99) mg/dL Lactate Dehydrogenase 414 H (120-246) U/L C-Reactive Protein 2.9 H (0.0-0.8) mg/dL Total Protein 6.1 L (6.2-8.2) g/dL Albumin 3.30 L (3.80-4.90) g/dL Albumin/Globulin Ratio 1.18 L (1.60-3.17) g/dL 05/28/20 Range/Units 20:35 BUN (9.0-27.0) mg/dL Est GFR (CKD-EPI)NonAf (60.0-200.0) BUN/Creatinine Ratio (12.00-20.00) Ratio Glucose (70-110) mg/dL POC Glucose (mg/dL) 301 H (75-99) mg/dL Lactate Dehydrogenase (120-246) U/L C-Reactive Protein (0.0-0.8) mg/dL Total Protein (6.2-8.2) g/dL Albumin (3.80-4.90) g/dL Albumin/Globulin Ratio (1.60-3.17) g/dL Assessment and Plan Assessment: -acute hypoxic respiratory failure: Secondary to covid 19 pneumonia patient maintained on vitamin and zinc supplements. Patient was on Decadron and being transitioned IV solu-Medrol. has received 2 doses of Tocilizumab and is continued on Lovenox. inflammatory markers ,Patient currently on Airvo with intermittent nonrebreather. Pulmonary following -Type 2 diabetes mellitus uncontrolled elevated blood sugars secondary to systemic steroids, continue with pre-meal, sliding scale, and long-acting -Hyperkalemia, improved -Hypotonic hyponatremia, improved -Acute renal failure secondary to Covid 19: Improved, current creatinine is 1.24 -Hypertension -DVT subcutaneous Lovenox -Full code Plan: Continue with current medications. Will continue IV Solu-Medrolith vitamin and zinc supplements. Lovenox has been added and patient has received Tocilizumab x2. Pulmonary following . Patient currently on intermittent nonrebreather along with airvo slowly weaning as tolerated. Inflammatory markers trending up and will repeat and monitor closely tomorrow. Repeat chest x-ray in the morning. PT/OT following and patient may likely require ECF for continued PT/OT therapy due to weakness once stabilized and discharged. Will continue to monito r closely and make further recommendations based on the clinical course of the patient. Prognosis remains guarded.
[2020-05-29] MEDS: methylPREDNISolone SOD SUCCI 125 MG/2 ML VIAL IV SCH ×3 (15:02→21:35)
[2020-05-29 17:00] LABS: Glucose,Whole Blood 405 mg/dL (75-99)
[2020-05-29 20:26] LABS: Glucose,Whole Blood 288 mg/dL (75-99)
[2020-05-29] MEDS: INSULIN DETEMIR (LEVEMIR) 100 UNIT/ML SYR SQ SCH (20:40)
[2020-05-30] MEDS: methylPREDNISolone SOD SUCCI 125 MG/2 ML VIAL IV SCH ×4 (05:58→23:21)
[2020-05-30 06:53] LABS: Glucose,Whole Blood 288 mg/dL (75-99)
--- NOTE | 2020-05-30 07:21 | XR ---
EXAMINATION TYPE: XR chest 1V portable DATE OF EXAM: 05/30/2020 COMPARISON: 05/28/2020 HISTORY: Shortness of breath TECHNIQUE: Single frontal view of the chest is obtained. FINDINGS: There are bilateral patchy diffuse infiltrates bilaterally which are stable given differen noelle in technique. Heart enlarged. Cardiac device seen with no pneumothorax. No sizable pleural effusi on. IMPRESSION: Bilateral diffuse infiltrates are stable.
[2020-05-30] MEDS: PIOGLITAZONE 30 MG TAB PO SCH (07:37)
[2020-05-30] MEDS: FAMOTIDINE 20 MG TAB PO SCH (07:37)
[2020-05-30] MEDS: CLOPIDOGREL 75 MG TAB PO SCH (07:38)
[2020-05-30] MEDS: ASPIRIN 81 MG PO SCH (07:38)
[2020-05-30] MEDS: ZINC SULFATE 220 MG CAP PO SCH (07:38)
[2020-05-30] MEDS: glipiZIDE 10 MG TAB PO SCH ×2 (07:38→20:54)
[2020-05-30] MEDS: METOPROLOL SUCCINATE (ER) 50 MG TAB.ER.24H PO SCH (07:38)
[2020-05-30] MEDS: ENOXAPARIN 40 MG/0.4 ML SYRINGE SQ SCH (07:38)
[2020-05-30] MEDS: ATORVASTATIN 80 MG TAB PO SCH (07:38)
[2020-05-30] MEDS: ASCORBIC ACID 500 MG TAB PO SCH (07:38)
[2020-05-30] MEDS: INSULIN ASPART (NovoLOG) 100 UNIT/ML VIAL SQ SCH ×7 (07:39→20:55)
[2020-05-30 10:17] LABS: African American GFR (CKD) 65.3 (60.0-200.0); Anion Gap 6.4 mmol/L (4.00-12.00); BUN/Creat Ratio 37.5 Ratio (12.00-20.00); C Reactive Protein 0.7 mg/dL (0.0-0.8); Calcium 8.6 mg/dL (8.7-10.3); Carbon Dioxide 24.6 mmol/L (21.6-31.8); Non-African American GFR(CKD) 56.4 (60.0-200.0); Potassium 5.5 mmol/L (3.5-5.5)
[2020-05-30 11:10] LABS: Glucose,Whole Blood 407 mg/dL (75-99)
--- NOTE | 2020-05-30 11:40 | P.PN ---
Subjective Progress Note Date: 05/30/20 80-year-old male, who was brought to the emergency department by EMS. The patient apparently has had 2 weeks' worth of increasing shortness of breath, and significant fatigue. The patient also had chest congestion. He had a fever. The patient states that he is just not been feeling well and getting progressively worse. He also apparently had an episode or 2 of diarrhea. The patient denied any chest pain or chest pressure or palpitations. The patient also denied nausea, vomiting, and abdominal pain. Apparently when EMS arrived, the patient's saturations were in the low 80s on room air. For that reason, he was transported in, evaluated, and admitted with a diagnosis of COVID 19 19 pneumonia. The patient does have a history of diabetes, hypertension, and a previous pacemaker insertion. White count was 4.6, hemoglobin 12.5, hematocrit 37.1, and platelet count 153,000. PT, INR, and PTT were all normal. D-dimer was 0.77. Sodium 136, potassium 4.5, chlorides 102, CO2 26, anion gap 8, BUN 47, and creatinine 1.63. Ferritin was 985, LDH 818, C-reactive protein 58, and pro-calcitonin level was 0.12. Chest x-ray did show some interstitial infiltrates. On 05/22/2020 patient seen in follow-up on medical floor. he is on 2 L of oxygen his pulse ox is 90-94%, breathing comfortably, no fever or chills, blood pressure has been stable. Denies any worsening dyspnea or hypoxemia, he has a mild cough, no chest discomfort. He continues on oral Decadron 6 mg daily, IV hydration, vitamins, d-dimer was low at 0.77, patient is on subcu heparin for DVT prophylaxis, pro-calcitonin level was low, inflammatory markers were not significantly elevated on admission. Clinically symptoms have not progressed, and patient will be considered for discharge in next 24 hours. The patient is seen today 05/23/2020 in follow-up on the regular medical floor. He is currently sitting up in chair at the bedside. Awake and alert in no acute distress. Continue O2 saturations in the low 90s on 2 L/m per nasal cannula. Afebrile. Hemodynamically stable. Blood cultures reveal no growth. Blood g lucose 202. Sodium 143. Potassium 5.5. Creatinine 1.19. He remains on dexamethasone, so continues heparin, vitamin supplements. Chest x-ray continues to show bilateral multifocal opacities consistent with CoVID infection. No change. The patient is seen today 05/24/2020 in follow-up on the regular medical floor. He is currently resting comfortably in bed. Awake and alert in no acute distre ss. He is maintaining O2 saturations in the 90s on 2 L/m per nasal cannula. He's been on dexamethasone, vitamin supplements, subcutaneous heparin. No worsening shortness of breath, cough or congestion. D-dimer 1.02. Sodium 145. Potassium 5.1. Creatinine 1.3. LDH 485. C-reactive protein 4.4. The patient is seen today 05/25/2020 in follow-up on the regular medical floor. He is currently resting quite comfortably in bed. Maintaining O2 saturations in the low 90s on 2 L/m per nasal cannula. Sodium 144. Potassium 4.7. Creatinine 1.2. Glucose 173. He remains on dexamethasone, heparin, vitamin supplements. 05/26/2020 on seeing the patient for a follow-up regarding the patient's acute hypoxic respiratory failure due to Covid 19 related pneumonia. The patient was not a candidate for Remdesivir, Tocilizumab or convalescent plasma, and the patient is currently on Decadron 6 mg on a daily basis and addition to Levemir insulin 50 units daily at bedtime and NovoLog 6 units 3 times a day with meals and a sliding scale coverage. The patient was on 2 L about 2 by nasal cannula with pulse ox of 93%. Earlier this morning, the patient's oxidation progressively got worse in the patient is currently on 100% nonrebreather facemask maintaining a saturation above 90% at around 94%. Overall, the patient is doing well. Creatinine is at 1.2. The patient had a CRP level of 4.4 with an LDH level of 485 from 05/24/2020. Inflammatory markers are being monitored. Last d-dimer from 05/24/2020 was 1.02. Blood cultures were negative repeat chest x-ray was done today and the findings are essentially stable and the patient has patchy bilateral perihilar pulmonary infiltrates without any significant interval change. D-dimer from today is at 1.7 and the patient remains on Lovenox. 05/27/2020 the patient is being seen for a follow-up. The patient is currently on high flow oxygen at 6 L. Note that the patient was on 100% nonrebreather facemask and was switched him to a high flow oxygen yesterday at 60 L. As part of his treatment, the patient received steroids and currently is receiving dexamethasone 6 mg by mouth daily. He is also Toci 2 yesterday and today. He completed treatment without any major side effects. Note that the patient was on low-flow oxygen and he progressively got worse requiring 100% nonrebreather and subsequent high flow oxygen. On today's evaluation, his white cell count is at 10. His d-dimer is at 1.6. Rest of the inflammatory markers have not been checked and this will be repeated tomorrow. LDH from yesterday was 491 with a CRP of 9.4. Otherwise, his renal function shows a stable creatinine of 1.2. The patient has been on FiO2 of 60% with a high flow oxygen of 60 L and the patient has been essentially stable since yesterday. No other significant events. Remains on Lovenox 40 mg subcu on a daily basis. 05/28/2020, the patient is still on high flow oxygen and 60 L. He is not utilizing the 100% nonrebreather facemask this morning. Note that the patient has received steroids, and he remains on Decadron 6 mg by mouth daily. He also completed Tocilizumab. On today's evaluation, chest x-ray findings are stable without any interval change in the bilateral pulmonary infiltrates. The patient is resting comfortably in bed. He is also able to move on a recliner. Labs today shows an LDH of 414 and a CRP of 2.9 and the patient is d-dimer is at 2.56. The patient remains on Lovenox 40 mg subcu on a daily basis. He is on Levemir insulin 50 units daily along with NovoLog 6 units with meals plus a sliding coverage. I will say his condition essentially the same as unchanged compared to yesterday. He is not doing much in progress for now. On today's evaluation of 05/29/2020 the patient is being seen for a follow-up. The patient remains on high flow oxygen with a flow of 6 L an FiO2 of 60%. His current pulse ox is around 88%. He is afebrile. He is doing well. Sitting up on a chair. No signs of any respiratory distress. His breathing is nonlabored and he doesn't have any significant cough unless he takes a deep inspiration. The patient had follow-up blood work today. His LDL level is up 1221 and a CRP level is up to 12.6 and his d-dimer currently is at 2.95. I cannot explain the rise in these inflammatory markers. His creatinine is at 1.2. Was a causative 13.7 with a hemoglobin of 13.2. His chest x-ray from yesterday was showing right basilar infiltrates which are nonspecific and it was mentioned that he was getting worse. The patient remains on Decadron 6 mg by mouth daily. He remains on 50 units of Levemir insulin along with 6 units of NovoLog [id number]. He remains on aspirin. He remains on Lovenox for DVT prophylaxis 40 mg subcu. 05/30/2020 the patient is on high flow oxygen at 60 L with an FiO2 of 70%. His pulse ox was around 93%. He feels well. No altered mentation. Resting comfortably. Sitting up and he has no significant shortness of breath at rest. His chest x-ray still showing diffuse bilateral pulmonary infiltrates, peripheral distribution, probably slightly worse compared to yesterday. However, the radiologist reports is stating that the findings are essentially stable. Clinically he is also stable. The labs from today shows a sugar of 407 is quite high and a d-dimer is down to 1.89 and the patient's LDH level is down to 419 with a CRP level of 0.7. The patient remains on Levemir insulin and is currently taking 50 units along with 6 units with meals of NovoLog. Objective - Vital Signs Vital signs: Vital Signs Temp 97.7 F 05/30/20 10:00 Pulse 60 05/30/20 10:00 Resp 20 05/30/20 10:00 BP 110/57 05/30/20 10:00 Pulse Ox 91 L 05/30/20 10:00 Intake & Output 05/29/20 05/30/20 05/30/20 18:59 06:59 18:59 Intake Total 320 Output Total 400 Balance 320 -400 Intake: Oral 320 Output: Urine 400 Other: Voiding Method Toilet Bedside Commode Bedside Commode Urinal Urinal # Voids 2 - Exam GENERAL EXAM: Alert, pleasant, 80-year-old male patient, on 60l with an FiO2 of 70% HEAD: Normocephalic/atraumatic. EYES: Normal reaction of pupils, equal size. Conjunctiva pink, sclera white. NOSE: Clear with pink turbinates. THROAT: No erythema or exudates. NECK: No masses, no JVD, no thyroid enlargement, no adenopathy. CHEST: No chest wall deformity. Symmetrical expansion. LUNGS: Equal air entry with bibasilar coarse crackles CVS: Regular rate and rhythm, normal S1 and S2, no gallops, no murmurs, no rubs ABDOMEN: Soft, nontender. No hepatosplenomegaly, normal bowel so milligrams unds, no guarding or rigidity. EXTREMITIES: No clubbing, no edema, no cyanosis, 2+ pulses and upper and lower extremities. MUSCULOSKELETAL: Muscle strength and tone normal. SPINE: No scoliosis or deformity SKIN: No rashes CENTRAL NERVOUS SYSTEM: No focal deficits, tone is normal in all 4 extremities. PSYCHIATRIC: Alert and oriented -3. Appropriate affect. Intact judgment and insight. - Labs CBC & Chem 7: 05/29/20 11:57 05/30/20 05:40 Labs: Abnormal Lab Results - Last 24 Hours (Table) 05/29/20 05/29/20 05/29/20 Range/Units 11:55 11:57 11:57 WBC 13.9 H (3.8-10.6) k/uL Neutrophils # 12.3 H (1.3-7.7) k/uL Lymphocytes # 0.8 L (1.0-4.8) k/uL D-Dimer 2.95 H (<0.60) mg/L FEU BUN (9-20) mg/dL Est GFR (CKD-EPI)NonAf (60.0-200.0) BUN/Creatinine Ratio (12.00-20.00) Ratio Glucose (74-99) mg/dL POC Glucose (mg/dL) 155 H (75-99) mg/dL Calcium (8.7-10.3) mg/dL Lactate Dehydrogenase (313-618) U/L C-Reactive Protein (<10.0) mg/L 05/29/20 05/29/20 05/29/20 Range/Units 11:57 16:36 20:26 WBC (3.8-10.6) k/uL Neutrophils # (1.3-7.7) k/uL Lymphocytes # (1.0-4.8) k/uL D-Dimer (<0.60) mg/L FEU BUN 51 H (9-20) mg/dL Est GFR (CKD-EPI)NonAf (60.0-200.0) BUN/Creatinine Ratio (12.00-20.00) Ratio Glucose 181 H (74-99) mg/dL POC Glucose (mg/dL) 405 H 288 H (75-99) mg/dL Calcium (8.7-10.3) mg/dL Lactate Dehydrogenase 1221 H (313-618) U/L C-Reactive Protein 12.6 H (<10.0) mg/L 05/30/20 05/30/20 05/30/20 Range/Units 05:40 05:40 06:51 WBC (3.8-10.6) k/uL Neutrophils # (1.3-7.7) k/uL Lymphocytes # (1.0-4.8) k/uL D-Dimer 1.89 H (<0.60) mg/L FEU BUN 45.0 H (9-20) mg/dL Est GFR (CKD-EPI)NonAf 56.4 L (60.0-200.0) BUN/Creatinine Ratio 37.50 H (12.00-20.00) Ratio Glucose 325 H (74-99) mg/dL POC Glucose (mg/dL) 288 H (75-99) mg/dL Calcium 8.6 L (8.7-10.3) mg/dL Lactate Dehydrogenase 419 H (313-618) U/L C-Reactive Protein (<10.0) mg/L 05/30/20 Range/Units 11:08 WBC (3.8-10.6) k/uL Neutrophils # (1.3-7.7) k/uL Lymphocytes # (1.0-4.8) k/uL D-Dimer (<0.60) mg/L FEU BUN (9-20) mg/dL Est GFR (CKD-EPI)NonAf (60.0-200.0) BUN/Creatinine Ratio (12.00-20.00) Ratio Glucose (74-99) mg/dL POC Glucose (mg/dL) 407 H (75-99) mg/dL Calcium (8.7-10.3) mg/dL Lactate Dehydrogenase (313-618) U/L C-Reactive Protein (<10.0) mg/L Assessment and Plan Plan: 1 Acute hypoxic respiratory failure secondary to CoVID 19 pneumonia, currently on IV Solu-Medrol and this received Tocilizumab 2 doses, the patient on high flow oxygen 60 L with an FiO2 of 70%.. The chest x-ray findings are stable without any interval improvement or change. Inflammatory markers are down with LDH is down to 414 and the CRP level is down to 2.9. Subsequently, the LDH levels have improved and the LDH level is down and the CRP is down went up and the d-dimer is low. Chest x-ray findings are stable. Oxygenation is also stable with FiO2 is ranging between 60 and 70%. 2 History of diabetes mellitus type 2, currently on Levemir insulin for blood sugar control 3 History of hypertension 4 History of chronic sinus disease 5 History of diverticulitis, status post bowel resection Plan: Continue Solu-Medrol. Continue Lovenox 40 mg subcu for DVT prophylaxis Completed Tocilizumab 2 Chest x-ray findings are stable. LDH and the d-dimer and the CRP are down trending flow oxygen 60 L with an FiO2 of 70% Titrate the FiO2 as tolerated Please the Levemir up to 60 units along with 10 units of NovoLog with meals and monitor the blood sugars We will continue to follow
--- NOTE | 2020-05-30 13:09 | P.PN ---
Subjective Progress Note Date: 05/30/20 80-year-old male who presents emergency Department stating that he has had shortness of breath and feeling fatigued for at least 2 weeks. Patient states he has had exposure to COVID . Patient states he has had a fever. Patient states she's also states and smile. Patient also states she's had diarrhea. Patient denies any chest pain or palpitations. Patient denies any abdominal pain patient denies nausea vomiting diarrhea. According to EMS with the patient was coming in he was satting in the low 80s. Patient is currently on a few liters of oxygen and sat in mid 90s. Patient is a diabetic and has high blood pressure. Patient also has a pacemaker. Patient is presently on 2 L of oxygen was requiring 4 L yesterday. Patient was started on IV fluids patient creatinine went up to 1.6 baseline is around 1. Patient's blood sugars are highly elevated. Patient tests positive for Covid. 05/22/2020 Patient is presently on 2 L of oxygen appears to be doing better possibility of discharge tomorrow. Creatinine went up a bit to 1.6 baseline is around the 1. Patient was started on IV fluids will recheck the basic metabolic profile tomorrow. 05/23/2020 Patient seen and evaluated in follow-up continues to be on 2 L of oxygen and becomes dyspneic with exertion. Patient states he does not know wear oxygen at home. Pulmonary is following. Patient's blood sugars are elevated and will continue sliding scale at this time as patient is on steroids. Potassium was found to be slightly elevated at 5.5 and was given a dose of Kayexalate. Will repeat a.m. labs. Instructed and encouraged the patient to get up and increase activity as tolerated. 05/24/2020 Patient is presently in 2 does of hours and doing clinically well. Patient is on dexamethasone, vitamin supplements, subcutaneous heparin. No worsening shortness of breath, cough or congestion. D-dimer 1.02. Sodium 145. Potassium 5.1. Creatinine 1.3. LDH 485. C-reactive protein 4.4. His creatinine actually went up a little bit from 1.19-1.3 05/25/2020 Patient is fairly stable no significant improvement or worsening. Patient is still on 2 L of oxygen. We'll monitor him 1 more night. Continues to require oxygen patient probably can be discharged on 2 L tomorrow this can be tapered or discontinued as an outpatient. Patient d-dimer is bit worse compared to admission. Although other inflammatory markers are better 05/26/2020 Patient is seen this morning currently on nonrebreather and airvo as his oxygen was found to be 89% on 6 L of oxygen. Pulmonary is following. D-dimer has gone up at 1.70 along with lactate dehydrogenase at 491 and CRP is 9.4. Blood sugars continue to be elevated and patient is maintained on sliding scale along with long-acting and pre-meal insulin and will continue at this time. Patient continues on vitamin and zinc supplements along with Lovenox and dexamethasone daily. Patient is scheduled to receive Tocilizumab today. Will continue to monitor closely based on the clinical course of the patient. Patient continues to be weak and was seen and evaluated by physical therapy recommending subacute rehab and patient is now agreeable and a social work consult was placed. 05/27/2020 Patient is seen and evaluated this morning with no improvement in respiratory status. Patient remains on Airvo with supplemental nonrebreather. Patient is day 2 of receiving Tocilizumab. Will repeat a.m. chest x-ray along with inflammatory markers. D-dimer today was 1.60. White blood count has gone up in is 10.8, hemoglobin is 12.6. Patient is afebrile. To continue with dexametha sone, Lovenox, vitamin C and zinc supplements. Pulmonary is following. Had a discussion with the patient about CODE STATUS along with his son Mauricio and currently wish to remain a full code until talking with family member more extensively about the situation. Will continue to monitor closely. Prognosis remains guarded. 05/28/2020 Patient is seen this morning status post getting up to the bathroom and continues to be extremely dyspneic with any exertion and was found to be low 80s to 83% oxygenation. Patient continues on the airvo with a flow rate of 60 and FiO2 of 64 and is currently 91%. Patient denies any chest pain or palpitations. Patient is afebrile. Patient reports to tolerating diet with no nausea or vomiting noted. D-dimer continues to be elevated at 2.56, sodium today is 140 with a potassium of 5.1 and creatinine is 1.2. Blood sugars on the lower side this morning and will continue to monitor closely and treat accordingly with sliding scale. Inflammatory markers trending down. Pulmonary following closely. Chest x-ray today shows continued bibasilar infiltrates which are nonspecific but worsening. 05/29/2020 Patient is seen in follow-up this morning and continues to be on Airvo no significant change. Patient was on dexamethasone all being transitioned to IV Solu-Medrol and will continue with Accu-Cheks and close glycemic control with pre-meal, long-acting, and sliding scale. White blood count is 13.9, hemoglobin is stable at 13.2, d-dimer is 2.95, sodium is 137, potassium is 5.1, creatinine slightly elevated at 1.24. Inflammatory markers have gone up. Patient is sitting up in the chair and denies any chest pain or worsening shortness of breath. Patient states he feels he is about the same. Patient also states he has been sleeping a lot and tolerating diet with no reports of nausea or vomiting. Discussed with patient about increasing activity as tolerated although patient is extremely dyspneic with minimal exertion. 05/30/2020 Patient is seen and evaluated this morning and follow-up with no acute overnight issues. Patient continues to be on Airvo with a flow rate of 60 and FiO2 of 70 and is being closely monitored. Transitioned to IV Solu-Medrol and will continue at this time. Blood sugars elevated and increasing long-acting and pre-meal insulins and will continue sliding scale along with oral antidiabetic agents. Need tighter glycemic control. Patient has been eating 100% of all meals with no reports of nausea or vomiting noted. Patient clinically looking better and chest x-ray displays stable infiltrates. D-dimer slightly trending down along with inflammatory markers. Creatinine is stable at 1.2 and potassium is 5.5. Will continue to monitor vital signs and labs closely. Constitutional: Reports fatigue although slightly more awake today, denied any fever. Cardio vascular: denied any chest pain, palpitations Gastrointestinal denied any nausea vomiting Pulmonary: Reports continued shortness of breath but feels has improved slightly Neurologic reports generalized weakness All inpatient medications were reviewed and appropriate changes in these medications as dictated in the interval history and assessment and plan. Active Medications Acetaminophen (Acetaminophen Tab 325 Mg Tab) 650 mg PO Q6HR PRN PRN Reason: Fever and/ or Pain Last Admin: 05/28/20 11:12 Dose: 650 mg Documented by: Ascorbic Acid (Ascorbic Acid 500 Mg Tab) 1,000 mg PO DAILY [facility] Last Admin: 05/30/20 07:38 Dose: 1,000 mg Documented by: Aspirin (Aspirin 81 Mg) 81 mg PO DAILY [facility] Last Admin: 05/30/20 07:38 Dose: 81 mg Documented by: Atorvastatin Calcium (Atorvastatin 80 Mg Tab) 80 mg PO DAILY [facility] Last Admin: 05/30/20 07:38 Dose: 80 mg Documented by: Clopidogrel Bisulfate (Clopidogrel 75 Mg Tab) 75 mg PO DAILY [facility] Last Admin: 05/30/20 07:38 Dose: 75 mg Documented by: Enoxaparin Sodium (Enoxaparin 40 Mg/0.4 Ml Syringe) 40 mg SQ DAILY [facility] Last Admin: 05/30/20 07:38 Dose: 40 mg Documented by: Famotidine (Famotidine 20 Mg Tab) 40 mg PO DAILY [facility] Last Admin: 05/30/20 07:37 Dose: 40 mg Documented by: Glipizide (Glipizide 10 Mg Tab) 20 mg PO BID [facility] Last Admin: 05/30/20 07:38 Dose: 20 mg Documented by: Insulin Aspart (Insulin Aspart (Novolog) 100 Unit/Ml Vial) 0 unit SQ ACHS [facility]; Protocol Last Admin: 05/30/20 11:50 Dose: 12 unit Documented by: Insulin Aspart (Insulin Aspart (Novolog) 100 Unit/Ml Vial) 10 unit SQ AC-TID [facility] Last Admin: 05/30/20 11:50 Dose: 10 unit Documented by: Insulin Detemir (Insulin Detemir (Levemir) 100 Unit/Ml Syr) 60 unit SQ HS [facility] Methylprednisolone Sodium Succinate (Methylprednisolone Sod Succi 125 Mg/2 Ml Vial) 60 mg IV Q6HR [facility] Last Admin: 05/30/20 11:50 Dose: 60 mg Documented by: Metoprolol Succinate (Metoprolol Succinate (Er) 50 Mg Tab.Er.24h) 50 mg PO DAILY [facility] Last Admin: 05/30/20 07:38 Dose: 50 mg Documented by: Pioglitazone HCl (Pioglitazone 30 Mg Tab) 30 mg PO DAILY [facility] Last Admin: 05/30/20 07:37 Dose: 30 mg Documented by: Zinc Sulfate (Zinc Sulfate 220 Mg Cap) 220 mg PO DAILY [facility] Last Admin: 05/30/20 07:38 Dose: 220 mg Documented by: Objective - Vital Signs Vital signs: Vital Signs Temp 97.7 F 05/30/20 10:00 Pulse 60 05/30/20 10:00 Resp 20 05/30/20 10:00 BP 110/57 05/30/20 10:00 Pulse Ox 91 L 05/30/20 10:00 Intake & Output 05/29/20 05/30/20 05/30/20 18:59 06:59 18:59 Intake Total 320 Output Total 400 Balance 320 -400 Intake: Oral 320 Output: Urine 400 Other: Voiding Method Toilet Bedside Commode Bedside Commode Urinal Urinal # Voids 2 - Exam GENERAL: The patient is alert and oriented x3, not in any acute distress. Obese, currently on airvo at a flow rate of 60 with an FiO2 of 70, continue to wean as tolerated HEENT: Pupils are round and equally reacting to light. EOMI. No scleral icterus. No conjunctival pallor. Normocephalic, atraumatic. No pharyngeal erythema. No thyromegaly. CARDIOVASCULAR: S1 and S2 present. No murmurs, rubs, or gallops. PULMONARY: Diminished breath sounds with diffuse rhonchi noted ABDOMEN: Soft, nontender, nondistended, normoactive bowel sounds. No palpable organomegaly. MUSCULOSKELETAL: No joint swelling or deformity. EXTREMITIES: No cyanosis, clubbing, or pedal edema. NEUROLOGICAL: Gross neurological examination did not reveal any focal deficits. SKIN: No rashes. - Labs CBC & Chem 7: 05/29/20 11:57 05/30/20 05:40 Labs: Abnormal Lab Results - Last 24 Hours (Table) 05/29/20 05/29/20 05/30/20 Range/Units 16:36 20:26 05:40 D-Dimer 1.89 H (<0.60) mg/L FEU BUN (9.0-27.0) mg/dL Est GFR (CKD-EPI)NonAf (60.0-200.0) BUN/Creatinine Ratio (12.00-20.00) Ratio Glucose (70-110) mg/dL POC Glucose (mg/dL) 405 H 288 H (75-99) mg/dL Calcium (8.7-10.3) mg/dL Lactate Dehydrogenase (120-246) U/L 05/30/20 05/30/20 05/30/20 Range/Units 05:40 06:51 11:08 D-Dimer (<0.60) mg/L FEU BUN 45.0 H (9.0-27.0) mg/dL Est GFR (CKD-EPI)NonAf 56.4 L (60.0-200.0) BUN/Creatinine Ratio 37.50 H (12.00-20.00) Ratio Glucose 325 H (70-110) mg/dL POC Glucose (mg/dL) 288 H 407 H (75-99) mg/dL Calcium 8.6 L (8.7-10.3) mg/dL Lactate Dehydrogenase 419 H (120-246) U/L Assessment and Plan Assessment: -acute hypoxic respiratory failure: Secondary to covid 19 pneumonia patient maintained on vitamin and zinc supplements. Patient currently on IV solu- Medrol. has received 2 doses of Tocilizumab and is continued on Lovenox. inflammatory markers ,Patient currently on Airvo with intermittent nonrebreather. Pulmonary following -Type 2 diabetes mellitus uncontrolled elevated blood sugars secondary to systemic steroids, continue with pre-meal, sliding scale, and long-acting, with adjustments made and will increase pre-male and long-acting doses -Hyperkalemia, improved -Hypotonic hyponatremia, improved -Acute renal failure secondary to Covid 19: Improved, current creatinine is 1.2 -Hypertension -DVT subcutaneous Lovenox -Full code Plan: Continue with current medications. Will continue IV Solu-Medrol with vitamin and zinc supplements, and lovenox . patient has received Tocilizumab x2. Pulmonary following . Patient currently on intermittent nonrebreather along with airvo slowly weaning as tolerated. Inflammatory markers trending down today and will repeat and monitor closely tomorrow. Repeat chest x-ray shows stable infiltrates. PT/OT following and patient may likely require ECF for continued PT/OT therapy due to weakness once stabilized and discharged. Will continue to monitor closely and make further recommendations based on the clinical course of the patient. Prognosis remains guarded.
[2020-05-30 16:46] LABS: Glucose,Whole Blood 291 mg/dL (75-99)
[2020-05-30 20:40] LABS: Glucose,Whole Blood 311 mg/dL (75-99)
[2020-05-30] MEDS: INSULIN DETEMIR (LEVEMIR) 100 UNIT/ML SYR SQ SCH (20:55)
[2020-05-31] MEDS: methylPREDNISolone SOD SUCCI 125 MG/2 ML VIAL IV SCH ×4 (05:31→23:03)
[2020-05-31 07:00] LABS: Glucose,Whole Blood 321 mg/dL (75-99)
[2020-05-31] MEDS: METOPROLOL SUCCINATE (ER) 50 MG TAB.ER.24H PO SCH (07:30)
[2020-05-31] MEDS: ATORVASTATIN 80 MG TAB PO SCH (07:30)
[2020-05-31] MEDS: CLOPIDOGREL 75 MG TAB PO SCH (07:30)
[2020-05-31] MEDS: FAMOTIDINE 20 MG TAB PO SCH (07:30)
[2020-05-31] MEDS: ZINC SULFATE 220 MG CAP PO SCH (07:30)
[2020-05-31] MEDS: ASCORBIC ACID 500 MG TAB PO SCH (07:30)
[2020-05-31] MEDS: ASPIRIN 81 MG PO SCH (07:30)
[2020-05-31] MEDS: glipiZIDE 10 MG TAB PO SCH ×2 (07:30→20:29)
[2020-05-31] MEDS: ENOXAPARIN 40 MG/0.4 ML SYRINGE SQ SCH (07:31)
[2020-05-31] MEDS: INSULIN ASPART (NovoLOG) 100 UNIT/ML VIAL SQ SCH ×7 (07:31→20:29)
[2020-05-31] MEDS: PIOGLITAZONE 30 MG TAB PO SCH (07:31)
[2020-05-31 07:48] LABS: Basophils % (A) 0 %; Eosinophils % (A) 0 %; HCT 39.5 % (39.0-53.0); HGB 13.1 gm/dL (13.0-17.5); Lymphocytes # (A) 1.3 k/uL (1.0-4.8); Lymphocytes % (A) 6 %; MCH 31.2 pg (25.0-35.0); MCHC 33.2 g/dL (31.0-37.0); Monocytes # (A) 0.8 k/uL (0-1.0); Monocytes % (A) 4 %; Neutrophils # (A) 20.6 k/uL (1.3-7.7); Neutrophils % (A) 90 %; Platelet Count 299 k/uL (150-450); RDW 13.1 % (11.5-15.5); WBC 22.9 k/uL (3.8-10.6)
[2020-05-31 08:02] LABS: African American GFR (CKD) 69 (>60 ml/min/1.73 sqM); Anion Gap 6 mmol/L; Blood Urea Nitrogen 55 mg/dL (9-20); C Reactive Protein <5.0 mg/L (<10.0); Calcium 8.8 mg/dL (8.4-10.2); Carbon Dioxide 26 mmol/L (22-30); Chloride 104 mmol/L (98-107); Glucose 322 mg/dL (74-99); LDH 1059 U/L (313-618); Non-African American GFR(CKD) 60 (>60 ml/min/1.73 sqM); Potassium 5.6 mmol/L (3.5-5.1); Sodium 136 mmol/L (137-145)
--- NOTE | 2020-05-31 08:07 | XR ---
EXAMINATION TYPE: XR chest 1V portable DATE OF EXAM: 05/31/2020 COMPARISON: 05/30/2020 HISTORY: Shortness of breath TECHNIQUE: Single frontal view of the chest is obtained. FINDINGS: There are diffuse partially consolidative opacities in both lungs predominantly in the mid and lower lung zones unchanged since the prior study. There is no pneumothorax or definite pleural effusion. The heart size is prominent. There is a 2-lead cardiac pacemaker. The osseous structures are intact. IMPRESSION: No change in the mild to moderate mid and lower lung zone infiltrates.
--- NOTE | 2020-05-31 11:13 | P.PN ---
Subjective Progress Note Date: 05/31/20 80-year-old male, who was brought to the emergency department by EMS. The patient apparently has had 2 weeks' worth of increasing shortness of breath, and significant fatigue. The patient also had chest congestion. He had a fever. The patient states that he is just not been feeling well and getting progressively worse. He also apparently had an episode or 2 of diarrhea. The patient denied any chest pain or chest pressure or palpitations. The patient also denied nausea, vomiting, and abdominal pain. Apparently when EMS arrived, the patient's saturations were in the low 80s on room air. For that reason, he was transported in, evaluated, and admitted with a diagnosis of COVID 19 19 pneumonia. The patient does have a history of diabetes, hypertension, and a previous pacemaker insertion. White count was 4.6, hemoglobin 12.5, hematocrit 37.1, and platelet count 153,000. PT, INR, and PTT were all normal. D-dimer was 0.77. Sodium 136, potassium 4.5, chlorides 102, CO2 26, anion gap 8, BUN 47, and creatinine 1.63. Ferritin was 985, LDH 818, C-reactive protein 58, and pro-calcitonin level was 0.12. Chest x-ray did show some interstitial infiltrates. On 05/22/2020 patient seen in follow-up on medical floor. he is on 2 L of oxygen his pulse ox is 90-94%, breathing comfortably, no fever or chills, blood pressure has been stable. Denies any worsening dyspnea or hypoxemia, he has a mild cough, no chest discomfort. He continues on oral Decadron 6 mg daily, IV hydration, vitamins, d-dimer was low at 0.77, patient is on subcu heparin for DVT prophylaxis, pro-calcitonin level was low, inflammatory markers were not significantly elevated on admission. Clinically symptoms have not progressed, and patient will be considered for discharge in next 24 hours. The patient is seen today 05/23/2020 in follow-up on the regular medical floor. He is currently sitting up in chair at the bedside. Awake and alert in no acute distress. Continue O2 saturations in the low 90s on 2 L/m per nasal cannula. Afebrile. Hemodynamically stable. Blood cultures reveal no growth. Blood g lucose 202. Sodium 143. Potassium 5.5. Creatinine 1.19. He remains on dexamethasone, so continues heparin, vitamin supplements. Chest x-ray continues to show bilateral multifocal opacities consistent with CoVID infection. No change. The patient is seen today 05/24/2020 in follow-up on the regular medical floor. He is currently resting comfortably in bed. Awake and alert in no acute distre ss. He is maintaining O2 saturations in the 90s on 2 L/m per nasal cannula. He's been on dexamethasone, vitamin supplements, subcutaneous heparin. No worsening shortness of breath, cough or congestion. D-dimer 1.02. Sodium 145. Potassium 5.1. Creatinine 1.3. LDH 485. C-reactive protein 4.4. The patient is seen today 05/25/2020 in follow-up on the regular medical floor. He is currently resting quite comfortably in bed. Maintaining O2 saturations in the low 90s on 2 L/m per nasal cannula. Sodium 144. Potassium 4.7. Creatinine 1.2. Glucose 173. He remains on dexamethasone, heparin, vitamin supplements. 05/26/2020 on seeing the patient for a follow-up regarding the patient's acute hypoxic respiratory failure due to Covid 19 related pneumonia. The patient was not a candidate for Remdesivir, Tocilizumab or convalescent plasma, and the patient is currently on Decadron 6 mg on a daily basis and addition to Levemir insulin 50 units daily at bedtime and NovoLog 6 units 3 times a day with meals and a sliding scale coverage. The patient was on 2 L about 2 by nasal cannula with pulse ox of 93%. Earlier this morning, the patient's oxidation progressively got worse in the patient is currently on 100% nonrebreather facemask maintaining a saturation above 90% at around 94%. Overall, the patient is doing well. Creatinine is at 1.2. The patient had a CRP level of 4.4 with an LDH level of 485 from 05/24/2020. Inflammatory markers are being monitored. Last d-dimer from 05/24/2020 was 1.02. Blood cultures were negative repeat chest x-ray was done today and the findings are essentially stable and the patient has patchy bilateral perihilar pulmonary infiltrates without any significant interval change. D-dimer from today is at 1.7 and the patient remains on Lovenox. 05/27/2020 the patient is being seen for a follow-up. The patient is currently on high flow oxygen at 6 L. Note that the patient was on 100% nonrebreather facemask and was switched him to a high flow oxygen yesterday at 60 L. As part of his treatment, the patient received steroids and currently is receiving dexamethasone 6 mg by mouth daily. He is also Toci 2 yesterday and today. He completed treatment without any major side effects. Note that the patient was on low-flow oxygen and he progressively got worse requiring 100% nonrebreather and subsequent high flow oxygen. On today's evaluation, his white cell count is at 10. His d-dimer is at 1.6. Rest of the inflammatory markers have not been checked and this will be repeated tomorrow. LDH from yesterday was 491 with a CRP of 9.4. Otherwise, his renal function shows a stable creatinine of 1.2. The patient has been on FiO2 of 60% with a high flow oxygen of 60 L and the patient has been essentially stable since yesterday. No other significant events. Remains on Lovenox 40 mg subcu on a daily basis. 05/28/2020, the patient is still on high flow oxygen and 60 L. He is not utilizing the 100% nonrebreather facemask this morning. Note that the patient has received steroids, and he remains on Decadron 6 mg by mouth daily. He also completed Tocilizumab. On today's evaluation, chest x-ray findings are stable without any interval change in the bilateral pulmonary infiltrates. The patient is resting comfortably in bed. He is also able to move on a recliner. Labs today shows an LDH of 414 and a CRP of 2.9 and the patient is d-dimer is at 2.56. The patient remains on Lovenox 40 mg subcu on a daily basis. He is on Levemir insulin 50 units daily along with NovoLog 6 units with meals plus a sliding coverage. I will say his condition essentially the same as unchanged compared to yesterday. He is not doing much in progress for now. On today's evaluation of 05/29/2020 the patient is being seen for a follow-up. The patient remains on high flow oxygen with a flow of 6 L an FiO2 of 60%. His current pulse ox is around 88%. He is afebrile. He is doing well. Sitting up on a chair. No signs of any respiratory distress. His breathing is nonlabored and he doesn't have any significant cough unless he takes a deep inspiration. The patient had follow-up blood work today. His LDL level is up 1221 and a CRP level is up to 12.6 and his d-dimer currently is at 2.95. I cannot explain the rise in these inflammatory markers. His creatinine is at 1.2. Was a causative 13.7 with a hemoglobin of 13.2. His chest x-ray from yesterday was showing right basilar infiltrates which are nonspecific and it was mentioned that he was getting worse. The patient remains on Decadron 6 mg by mouth daily. He remains on 50 units of Levemir insulin along with 6 units of NovoLog [id number]. He remains on aspirin. He remains on Lovenox for DVT prophylaxis 40 mg subcu. 05/30/2020 the patient is on high flow oxygen at 60 L with an FiO2 of 70%. His pulse ox was around 93%. He feels well. No altered mentation. Resting comfortably. Sitting up and he has no significant shortness of breath at rest. His chest x-ray still showing diffuse bilateral pulmonary infiltrates, peripheral distribution, probably slightly worse compared to yesterday. However, the radiologist reports is stating that the findings are essentially stable. Clinically he is also stable. The labs from today shows a sugar of 407 is quite high and a d-dimer is down to 1.89 and the patient's LDH level is down to 419 with a CRP level of 0.7. The patient remains on Levemir insulin and is currently taking 50 units along with 6 units with meals of NovoLog. 05/31/2020 the patient remains on high flow at 60 L with an FiO2 of 70% which is essentially the same as yesterday. His pulse ox currently is around 93%. His chest x-ray from today is showing diffuse bilateral pulmonary infiltrates, peripheral distribution, I thought his chest x-ray and probably the x-ray findings are improved compared to yesterday's chest x-ray. I have the patient on Solu-Medrol 60 mg every 6 hours. He is also on anticoagulation. He is receiving Lovenox.. His d-dimer is at 1.57 on today's evaluation. His LDH level is high today at 1059 with a CRP of less than 5. He remains on Levemir insulin 50 units along with 6 units of NovoLog with meals and his blood sugars under adequate control for now. He has no other complaints otherwise. Note that initially the patient was started on Decadron and during the course of his treatment he was given Toci Objective - Vital Signs Vital signs: Vital Signs Temp 97.6 F 05/31/20 10:00 Pulse 61 05/31/20 10:00 Resp 19 05/31/20 10:00 BP 120/56 05/31/20 10:00 Pulse Ox 93 L 05/31/20 10:00 Intake & Output 05/30/20 05/31/20 05/31/20 18:59 06:59 18:59 Other: Voiding Method Bedside Commode Bedside Commode Bedside Commode Urinal Urinal Urinal # Voids 2 2 - Exam GENERAL EXAM: Alert, pleasant, 80-year-old male patient, on 60l with an FiO2 of 70% HEAD: Normocephalic/atraumatic. EYES: Normal reaction of pupils, equal size. Conjunctiva pink, sclera white. NOSE: Clear with pink turbinates. THROAT: No erythema or exudates. NECK: No masses, no JVD, no thyroid enlargement, no adenopathy. CHEST: No chest wall deformity. Symmetrical expansion. LUNGS: Equal air entry with bibasilar coarse crackles CVS: Regular rate and rhythm, normal S1 and S2, no gallops, no murmurs, no rubs ABDOMEN: Soft, nontender. No hepatosplenomegaly, normal bowel so milligrams unds, no guarding or rigidity. EXTREMITIES: No clubbing, no edema, no cyanosis, 2+ pulses and upper and lower extremities. MUSCULOSKELETAL: Muscle strength and tone normal. SPINE: No scoliosis or deformity SKIN: No rashes CENTRAL NERVOUS SYSTEM: No focal deficits, tone is normal in all 4 extremities. PSYCHIATRIC: Alert and oriented -3. Appropriate affect. Intact judgment and insight. - Labs CBC & Chem 7: 05/31/20 06:30 05/31/20 06:30 Labs: Abnormal Lab Results - Last 24 Hours (Table) 05/30/20 05/30/20 05/30/20 Range/Units 11:08 16:38 20:38 WBC (3.8-10.6) k/uL RBC (4.30-5.90) m/uL Neutrophils # (1.3-7.7) k/uL D-Dimer (<0.60) mg/L FEU Sodium (137-145) mmol/L Potassium (3.5-5.1) mmol/L BUN (9-20) mg/dL Glucose (74-99) mg/dL POC Glucose (mg/dL) 407 H 291 H 311 H (75-99) mg/dL Lactate Dehydrogenase (313-618) U/L 05/31/20 05/31/20 05/31/20 Range/Units 06:30 06:30 06:30 WBC 22.9 H (3.8-10.6) k/uL RBC 4.20 L (4.30-5.90) m/uL Neutrophils # 20.6 H (1.3-7.7) k/uL D-Dimer 1.57 H (<0.60) mg/L FEU Sodium 136 L (137-145) mmol/L Potassium 5.6 H (3.5-5.1) mmol/L BUN 55 H (9-20) mg/dL Glucose 322 H (74-99) mg/dL POC Glucose (mg/dL) (75-99) mg/dL Lactate Dehydrogenase 1059 H (313-618) U/L 05/31/20 Range/Units 06:58 WBC (3.8-10.6) k/uL RBC (4.30-5.90) m/uL Neutrophils # (1.3-7.7) k/uL D-Dimer (<0.60) mg/L FEU Sodium (137-145) mmol/L Potassium (3.5-5.1) mmol/L BUN (9-20) mg/dL Glucose (74-99) mg/dL POC Glucose (mg/dL) 321 H (75-99) mg/dL Lactate Dehydrogenase (313-618) U/L Assessment and Plan Plan: 1 Acute hypoxic respiratory failure secondary to CoVID 19 pneumonia, currently on IV Solu-Medrol and this received Tocilizumab 2 doses, the patient on high flow oxygen 60 L with an FiO2 of 70%.. The chest x-ray findings are stable without any interval improvement or change. Inflammatory markers arehigh again including LDH being above 1000. Chest x-ray findings are stable, probably improved. Oxygenation is also stable with FiO2 is ranging between 60 and 70%. 2 History of diabetes mellitus type 2, currently on Levemir insulin for blood sugar control 3 History of hypertension 4 History of chronic sinus disease 5 History of diverticulitis, status post bowel resection Plan: Continue same treatment Changes oxygenation compared to yesterday. The patient has been in the hospital for more than 10 days. He is very slow to progress. Continue Solu-Medrol. Continue Lovenox 40 mg subcu for DVT prophylaxis Completed Tocilizumab 2 Chest x-ray findings are stable. LDH and the d-dimer and the CRP are fluctuating and the most recent LDH level is higher flow oxygen 60 L with an FiO2 of 70% Titrate the FiO2 as tolerated Please the Levemir up to 60 units along with 10 units of NovoLog with meals and monitor the blood sugars We will continue to follow
[2020-05-31 11:21] LABS: Glucose,Whole Blood 302 mg/dL (75-99)
[2020-05-31 16:29] LABS: Glucose,Whole Blood 372 mg/dL (75-99)
[2020-05-31 20:27] LABS: Glucose,Whole Blood 381 mg/dL (75-99)
[2020-05-31] MEDS: INSULIN DETEMIR (LEVEMIR) 100 UNIT/ML SYR SQ SCH (20:29)
[2020-06-01] MEDS: methylPREDNISolone SOD SUCCI 125 MG/2 ML VIAL IV SCH ×4 (05:21→23:09)
[2020-06-01 06:59] LABS: Glucose,Whole Blood 224 mg/dL (75-99)
[2020-06-01] MEDS: FAMOTIDINE 20 MG TAB PO SCH (07:31)
[2020-06-01] MEDS: ATORVASTATIN 80 MG TAB PO SCH (07:31)
[2020-06-01] MEDS: ZINC SULFATE 220 MG CAP PO SCH (07:31)
[2020-06-01] MEDS: METOPROLOL SUCCINATE (ER) 50 MG TAB.ER.24H PO SCH (07:31)
[2020-06-01] MEDS: PIOGLITAZONE 30 MG TAB PO SCH (07:31)
[2020-06-01] MEDS: glipiZIDE 10 MG TAB PO SCH ×2 (07:31→20:32)
[2020-06-01] MEDS: ENOXAPARIN 40 MG/0.4 ML SYRINGE SQ SCH (07:31)
[2020-06-01] MEDS: CLOPIDOGREL 75 MG TAB PO SCH (07:31)
[2020-06-01] MEDS: ASCORBIC ACID 500 MG TAB PO SCH (07:32)
[2020-06-01] MEDS: INSULIN ASPART (NovoLOG) 100 UNIT/ML VIAL SQ SCH ×7 (07:32→20:31)
[2020-06-01] MEDS: ASPIRIN 81 MG PO SCH (07:32)
[2020-06-01 09:17] LABS: C Reactive Protein <0.4 mg/dL (0.0-0.8); LDH 378 U/L (120-246)
[2020-06-01 11:38] LABS: Glucose,Whole Blood 301 mg/dL (75-99)
--- NOTE | 2020-06-01 12:15 | P.PN ---
Subjective Progress Note Date: 06/01/20 80-year-old male, who was brought to the emergency department by EMS. The patient apparently has had 2 weeks' worth of increasing shortness of breath, and significant fatigue. The patient also had chest congestion. He had a fever. The patient states that he is just not been feeling well and getting progressively worse. He also apparently had an episode or 2 of diarrhea. The patient denied any chest pain or chest pressure or palpitations. The patient also denied nausea, vomiting, and abdominal pain. Apparently when EMS arrived, the patient's saturations were in the low 80s on room air. For that reason, he was transported in, evaluated, and admitted with a diagnosis of COVID 19 19 pneumonia. The patient does have a history of diabetes, hypertension, and a previous pacemaker insertion. White count was 4.6, hemoglobin 12.5, hematocrit 37.1, and platelet count 153,000. PT, INR, and PTT were all normal. D-dimer was 0.77. Sodium 136, potassium 4.5, chlorides 102, CO2 26, anion gap 8, BUN 47, and creatinine 1.63. Ferritin was 985, LDH 818, C-reactive protein 58, and pro-calcitonin level was 0.12. Chest x-ray did show some interstitial infiltrates. On 05/22/2020 patient seen in follow-up on medical floor. he is on 2 L of oxygen his pulse ox is 90-94%, breathing comfortably, no fever or chills, blood pressure has been stable. Denies any worsening dyspnea or hypoxemia, he has a mild cough, no chest discomfort. He continues on oral Decadron 6 mg daily, IV hydration, vitamins, d-dimer was low at 0.77, patient is on subcu heparin for DVT prophylaxis, pro-calcitonin level was low, inflammatory markers were not significantly elevated on admission. Clinically symptoms have not progressed, and patient will be considered for discharge in next 24 hours. The patient is seen today 05/23/2020 in follow-up on the regular medical floor. He is currently sitting up in chair at the bedside. Awake and alert in no acute distress. Continue O2 saturations in the low 90s on 2 L/m per nasal cannula. Afebrile. Hemodynamically stable. Blood cultures reveal no growth. Blood g lucose 202. Sodium 143. Potassium 5.5. Creatinine 1.19. He remains on dexamethasone, so continues heparin, vitamin supplements. Chest x-ray continues to show bilateral multifocal opacities consistent with CoVID infection. No change. The patient is seen today 05/24/2020 in follow-up on the regular medical floor. He is currently resting comfortably in bed. Awake and alert in no acute distre ss. He is maintaining O2 saturations in the 90s on 2 L/m per nasal cannula. He's been on dexamethasone, vitamin supplements, subcutaneous heparin. No worsening shortness of breath, cough or congestion. D-dimer 1.02. Sodium 145. Potassium 5.1. Creatinine 1.3. LDH 485. C-reactive protein 4.4. The patient is seen today 05/25/2020 in follow-up on the regular medical floor. He is currently resting quite comfortably in bed. Maintaining O2 saturations in the low 90s on 2 L/m per nasal cannula. Sodium 144. Potassium 4.7. Creatinine 1.2. Glucose 173. He remains on dexamethasone, heparin, vitamin supplements. 05/26/2020 on seeing the patient for a follow-up regarding the patient's acute hypoxic respiratory failure due to Covid 19 related pneumonia. The patient was not a candidate for Remdesivir, Tocilizumab or convalescent plasma, and the patient is currently on Decadron 6 mg on a daily basis and addition to Levemir insulin 50 units daily at bedtime and NovoLog 6 units 3 times a day with meals and a sliding scale coverage. The patient was on 2 L about 2 by nasal cannula with pulse ox of 93%. Earlier this morning, the patient's oxidation progressively got worse in the patient is currently on 100% nonrebreather facemask maintaining a saturation above 90% at around 94%. Overall, the patient is doing well. Creatinine is at 1.2. The patient had a CRP level of 4.4 with an LDH level of 485 from 05/24/2020. Inflammatory markers are being monitored. Last d-dimer from 05/24/2020 was 1.02. Blood cultures were negative repeat chest x-ray was done today and the findings are essentially stable and the patient has patchy bilateral perihilar pulmonary infiltrates without any significant interval change. D-dimer from today is at 1.7 and the patient remains on Lovenox. 05/27/2020 the patient is being seen for a follow-up. The patient is currently on high flow oxygen at 6 L. Note that the patient was on 100% nonrebreather facemask and was switched him to a high flow oxygen yesterday at 60 L. As part of his treatment, the patient received steroids and currently is receiving dexamethasone 6 mg by mouth daily. He is also Toci 2 yesterday and today. He completed treatment without any major side effects. Note that the patient was on low-flow oxygen and he progressively got worse requiring 100% nonrebreather and subsequent high flow oxygen. On today's evaluation, his white cell count is at 10. His d-dimer is at 1.6. Rest of the inflammatory markers have not been checked and this will be repeated tomorrow. LDH from yesterday was 491 with a CRP of 9.4. Otherwise, his renal function shows a stable creatinine of 1.2. The patient has been on FiO2 of 60% with a high flow oxygen of 60 L and the patient has been essentially stable since yesterday. No other significant events. Remains on Lovenox 40 mg subcu on a daily basis. 05/28/2020, the patient is still on high flow oxygen and 60 L. He is not utilizing the 100% nonrebreather facemask this morning. Note that the patient has received steroids, and he remains on Decadron 6 mg by mouth daily. He also completed Tocilizumab. On today's evaluation, chest x-ray findings are stable without any interval change in the bilateral pulmonary infiltrates. The patient is resting comfortably in bed. He is also able to move on a recliner. Labs today shows an LDH of 414 and a CRP of 2.9 and the patient is d-dimer is at 2.56. The patient remains on Lovenox 40 mg subcu on a daily basis. He is on Levemir insulin 50 units daily along with NovoLog 6 units with meals plus a sliding coverage. I will say his condition essentially the same as unchanged compared to yesterday. He is not doing much in progress for now. On today's evaluation of 05/29/2020 the patient is being seen for a follow-up. The patient remains on high flow oxygen with a flow of 6 L an FiO2 of 60%. His current pulse ox is around 88%. He is afebrile. He is doing well. Sitting up on a chair. No signs of any respiratory distress. His breathing is nonlabored and he doesn't have any significant cough unless he takes a deep inspiration. The patient had follow-up blood work today. His LDL level is up 1221 and a CRP level is up to 12.6 and his d-dimer currently is at 2.95. I cannot explain the rise in these inflammatory markers. His creatinine is at 1.2. Was a causative 13.7 with a hemoglobin of 13.2. His chest x-ray from yesterday was showing right basilar infiltrates which are nonspecific and it was mentioned that he was getting worse. The patient remains on Decadron 6 mg by mouth daily. He remains on 50 units of Levemir insulin along with 6 units of NovoLog [id number]. He remains on aspirin. He remains on Lovenox for DVT prophylaxis 40 mg subcu. 05/30/2020 the patient is on high flow oxygen at 60 L with an FiO2 of 70%. His pulse ox was around 93%. He feels well. No altered mentation. Resting comfortably. Sitting up and he has no significant shortness of breath at rest. His chest x-ray still showing diffuse bilateral pulmonary infiltrates, peripheral distribution, probably slightly worse compared to yesterday. However, the radiologist reports is stating that the findings are essentially stable. Clinically he is also stable. The labs from today shows a sugar of 407 is quite high and a d-dimer is down to 1.89 and the patient's LDH level is down to 419 with a CRP level of 0.7. The patient remains on Levemir insulin and is currently taking 50 units along with 6 units with meals of NovoLog. 05/31/2020 the patient remains on high flow at 60 L with an FiO2 of 70% which is essentially the same as yesterday. His pulse ox currently is around 93%. His chest x-ray from today is showing diffuse bilateral pulmonary infiltrates, peripheral distribution, I thought his chest x-ray and probably the x-ray findings are improved compared to yesterday's chest x-ray. I have the patient on Solu-Medrol 60 mg every 6 hours. He is also on anticoagulation. He is receiving Lovenox.. His d-dimer is at 1.57 on today's evaluation. His LDH level is high today at 1059 with a CRP of less than 5. He remains on Levemir insulin 50 units along with 6 units of NovoLog with meals and his blood sugars under adequate control for now. He has no other complaints otherwise. Note that initially the patient was started on Decadron and during the course of his treatment he was given Toci 06/01/2020, the patient is on high flow oxygen at 60 L along with an FiO2 of 70%. Pulse ox is in order of 96%. I'm hoping to get down the FiO2 further today. The patient is on IV Solu-Medrol. He is on long-term anticoagulation. He is receiving Lovenox at a dose of 40 mg subcu on a daily basis. In terms of inflammatory markers and blood work, the patient's CRP is less than 0.4 and the LDH level is at 378. The chest x-ray was done yesterday showed some lower lobe active pulmonary infiltrates, findings are unchanged. The patient is awake and alert and following commands and answering questions. He is on Levemir insulin as a dose of 60 daily at bedtime and he is also on NovoLog 10 units with meals and a sliding scale coverage. He has completed tocilizumab Objective - Vital Signs Vital signs: Vital Signs Temp 97.9 F 06/01/20 10:00 Pulse 63 06/01/20 10:00 Resp 20 06/01/20 10:00 BP 127/70 06/01/20 10:00 Pulse Ox 96 06/01/20 10:00 Intake & Output 05/31/20 06/01/20 06/01/20 18:59 06:59 18:59 Output Total 775 Balance -775 Output: Urine 775 Other: Voiding Method Bedside Commode Bedside Commode Urinal Urinal # Voids 2 2 - Exam GENERAL EXAM: Alert, pleasant, 80-year-old male patient, on 60l with an FiO2 of 70% HEAD: Normocephalic/atraumatic. EYES: Normal reaction of pupils, equal size. Conjunctiva pink, sclera white. NOSE: Clear with pink turbinates. THROAT: No erythema or exudates. NECK: No masses, no JVD, no thyroid enlargement, no adenopathy. CHEST: No chest wall deformity. Symmetrical expansion. LUNGS: Equal air entry with bibasilar coarse crackles CVS: Regular rate and rhythm, normal S1 and S2, no gallops, no murmurs, no rubs ABDOMEN: Soft, nontender. No hepatosplenomegaly, normal bowel so milligrams unds, no guarding or rigidity. EXTREMITIES: No clubbing, no edema, no cyanosis, 2+ pulses and upper and lower extremities. MUSCULOSKELETAL: Muscle strength and tone normal. SPINE: No scoliosis or deformity SKIN: No rashes CENTRAL NERVOUS SYSTEM: No focal deficits, tone is normal in all 4 extremities. PSYCHIATRIC: Alert and oriented -3. Appropriate affect. Intact judgment and insight. - Labs CBC & Chem 7: 05/31/20 06:30 05/31/20 06:30 Labs: Abnormal Lab Results - Last 24 Hours (Table) 05/31/20 05/31/20 06/01/20 Range/Units 16:27 20:25 06:10 D-Dimer 1.53 H (<0.60) mg/L FEU POC Glucose (mg/dL) 372 H 381 H (75-99) mg/dL Lactate Dehydrogenase (120-246) U/L 06/01/20 06/01/20 06/01/20 Range/Units 06:10 06:57 11:37 D-Dimer (<0.60) mg/L FEU POC Glucose (mg/dL) 224 H 301 H (75-99) mg/dL Lactate Dehydrogenase 378 H (120-246) U/L Assessment and Plan Plan: 1 Acute hypoxic respiratory failure secondary to CoVID 19 pneumonia -IV Solu-Medrol and this received Tocilizumab 2 doses -high flow oxygen 60 L with an FiO2 of 70%.. -The chest x-ray findings are stable without any interval improvement or change. -Inflammatory markers are improving and the LDH is back down to 378 and is declining again. 2 History of diabetes mellitus type 2, currently on Levemir insulin for blood sugar control 3 History of hypertension 4 History of chronic sinus disease 5 History of diverticulitis, status post bowel resection Plan: Continue same treatment Changes oxygenation compared to yesterday. The patient has been in the hospital for more than 12 days. He is very slow to progress. Continue Solu-Medrol. Continue Lovenox 40 mg subcu for DVT prophylaxis Completed Tocilizumab 2 Chest x-ray findings are stable. LDH and the d-dimer and the CRP are fluctuating and the most recent LDH level is improving and the levels are lower flow oxygen 60 L with an FiO2 of 70% Titrate the FiO2 as tolerated Please the Levemir up to 60 units along with 10 units of NovoLog with meals and monitor the blood sugars We will continue to follow
[2020-06-01 16:34] LABS: Glucose,Whole Blood 315 mg/dL (75-99)
[2020-06-01 20:30] LABS: Glucose,Whole Blood 321 mg/dL (75-99)
[2020-06-01] MEDS: INSULIN DETEMIR (LEVEMIR) 100 UNIT/ML SYR SQ SCH (20:31)
--- NOTE | 2020-06-02 00:16 | P.PN ---
Subjective Progress Note Date: 05/31/20 Principal diagnosis: COVID pneumonia 80-year-old male who presents emergency Department stating that he has had shortness of breath and feeling fatigued for at least 2 weeks. Patient states he has had exposure to COVID . Patient states he has had a fever. Patient states she's also states and smile. Patient also states she's had diarrhea. Patient denies any chest pain or palpitations. Patient denies any abdominal pain patient denies nausea vomiting diarrhea. According to EMS with the patient was coming in he was satting in the low 80s. Patient is currently on a few liters of oxygen and sat in mid 90s. Patient is a diabetic and has high blood pressure. Patient also has a pacemaker. Patient is presently on 2 L of oxygen was requiring 4 L yesterday. Patient was started on IV fluids patient creatinine went up to 1.6 baseline is around 1. Patient's blood sugars are highly elevated. Patient tests positive for Covid. 05/22/2020 Patient is presently on 2 L of oxygen appears to be doing better possibility of discharge tomorrow. Creatinine went up a bit to 1.6 baseline is around the 1. Patient was started on IV fluids will recheck the basic metabolic profile tomorrow. 05/23/2020 Patient seen and evaluated in follow-up continues to be on 2 L of oxygen and becomes dyspneic with exertion. Patient states he does not know wear oxygen at home. Pulmonary is following. Patient's blood sugars are elevated and will continue sliding scale at this time as patient is on steroids. Potassium was found to be slightly elevated at 5.5 and was given a dose of Kayexalate. Will repeat a.m. labs. Instructed and encouraged the patient to get up and increase activity as tolerated. 05/24/2020 Patient is presently in 2 does of hours and doing clinically well. Patient is on dexamethasone, vitamin supplements, subcutaneous heparin. No worsening shortness of breath, cough or congestion. D-dimer 1.02. Sodium 145. Potassium 5.1. Creatinine 1.3. LDH 485. C-reactive protein 4.4. His creatinine actually went up a little bit from 1.19-1.3 05/25/2020 Patient is fairly stable no significant improvement or worsening. Patient is still on 2 L of oxygen. We'll monitor him 1 more night. Continues to require oxygen patient probably can be discharged on 2 L tomorrow this can be tapered or discontinued as an outpatient. Patient d-dimer is bit worse compared to admission. Although other inflammatory markers are better 05/26/2020 Patient is seen this morning currently on nonrebreather and airvo as his oxygen was found to be 89% on 6 L of oxygen. Pulmonary is following. D-dimer has gone up at 1.70 along with lactate dehydrogenase at 491 and CRP is 9.4. Blood sugars continue to be elevated and patient is maintained on sliding scale along with long-acting and pre-meal insulin and will continue at this time. Patient continues on vitamin and zinc supplements along with Lovenox and dexamethasone daily. Patient is scheduled to receive Tocilizumab today. Will continue to monitor closely based on the clinical course of the patient. Patient continues to be weak and was seen and evaluated by physical therapy recommending subacute rehab and patient is now agreeable and a social work consult was placed. 05/27/2020 Patient is seen and evaluated this morning with no improvement in respiratory status. Patient remains on Airvo with supplemental nonrebreather. Patient is day 2 of receiving Tocilizumab. Will repeat a.m. chest x-ray along with in flammatory markers. D-dimer today was 1.60. White blood count has gone up in is 10.8, hemoglobin is 12.6. Patient is afebrile. To continue with dexamethasone, Lovenox, vitamin C and zinc supplements. Pulmonary is following. Had a discussion with the patient about CODE STATUS along with his son Mauricio and currently wish to remain a full code until talking with family member more extensively about the situation. Will continue to monitor closely. Prognosis remains guarded. 05/28/2020 Patient is seen this morning status post getting up to the bathroom and continues to be extremely dyspneic with any exertion and was found to be low 80s to 83% oxygenation. Patient continues on the airvo with a flow rate of 60 and FiO2 of 64 and is currently 91%. Patient denies any chest pain or palpitations. Patient is afebrile. Patient reports to tolerating diet with no nausea or vomiting noted. D-dimer continues to be elevated at 2.56, sodium today is 140 with a potassium of 5.1 and creatinine is 1.2. Blood sugars on the lower side this morning and will continue to monitor closely and treat accordingly with sliding scale. Inflammatory markers trending down. Pulmonary following closely. Chest x-ray today shows continued bibasilar infiltrates which are nonspecific but worsening. 05/29/2020 Patient is seen in follow-up this morning and continues to be on Airvo no significant change. Patient was on dexamethasone all being transitioned to IV Solu-Medrol and will continue with Accu-Cheks and close glycemic control with pre-meal, long-acting, and sliding scale. White blood count is 13.9, hemoglobin is stable at 13.2, d-dimer is 2.95, sodium is 137, potassium is 5.1, creatinine slightly elevated at 1.24. Inflammatory markers have gone up. Patient is sitting up in the chair and denies any chest pain or worsening shortness of breath. Patient states he feels he is about the same. Patient also states he has been sleeping a lot and tolerating diet with no reports of nausea or vom iting. Discussed with patient about increasing activity as tolerated although patient is extremely dyspneic with minimal exertion. 05/30/2020 Patient is seen and evaluated this morning and follow-up with no acute overnight issues. Patient continues to be on Airvo with a flow rate of 60 and FiO2 of 70 and is being closely monitored. Transitioned to IV Solu-Medrol and will continue at this time. Blood sugars elevated and increasing long-acting and pre-meal insulins and will continue sliding scale along with oral antidiabetic agents. Need tighter glycemic control. Patient has been eating 100% of all meals with no reports of nausea or vomiting noted. Patient clinically looking better and chest x-ray displays stable infiltrates. D-dimer slightly trending down along with inflammatory markers. Creatinine is stable at 1.2 and potassium is 5.5. Will continue to monitor vital signs and labs closely. On 05/31/2020 -patient is seen and examined at the bedside. He is sitting up in the chair and is on Airvo 60 L with FiO2 of 70%, saturating about 90%. He still complains of exertional dyspnea and cough at times. Denies having any fevers chills or rigors. He complains of generalized weakness. On reviewing his vitals temperature of 97.9, heart rate 63, respiratory rate 18, blood pressure 120 x 62 . On reviewing his labs white count of 22.9, hemoglobin 13, platelets 299. Sodium 136, potassium 5.6, chloride 104, bicarb 26, BUN 55, creatinine 1.15. Blood sugars running on the higher side around 300s. Patient had a chest x-ray done this morning showing mild to moderate mid and lower zone infiltrates. All medications have been reviewed and pertinent changes made. Objective - Vital Signs Vital signs: Vital Signs Temp 97.9 F 05/31/20 13:57 Pulse 63 05/31/20 13:57 Resp 18 05/31/20 13:57 BP 120/62 05/31/20 13:57 Pulse Ox 92 L 05/31/20 13:57 Intake & Output 05/30/20 05/31/20 05/31/20 18:59 06:59 18:59 Other: Voiding Method Bedside Commode Bedside Commode Bedside Commode Urinal Urinal Urinal # Voids 2 2 - Exam GENERAL: The patient is alert and oriented x3, not in any acute distress. Obese, ill appearing HEENT: Pupils are round and equally reacting to light. EOMI. No scleral icterus. No conjunctival pallor. . CARDIOVASCULAR: S1 and S2 present. No murmurs, rubs, or gallops. PULMONARY: Diminished breath sounds with diffuse rhonchi ABDOMEN: Soft, nontender, nondistended, normoactive bowel sounds. No palpable organomegaly. MUSCULOSKELETAL: No joint swelling or deformity. EXTREMITIES: No cyanosis, clubbing, Mil pedal edema. NEUROLOGICAL: Gross neurological examination did not reveal any focal deficits. SKIN: No rashes. - Labs CBC & Chem 7: 05/31/20 06:30 05/31/20 06:30 Labs: Abnormal Lab Results - Last 24 Hours (Table) 05/30/20 05/30/20 05/31/20 Range/Units 16:38 20:38 06:30 WBC (3.8-10.6) k/uL RBC (4.30-5.90) m/uL Neutrophils # (1.3-7.7) k/uL D-Dimer 1.57 H (<0.60) mg/L FEU Sodium (137-145) mmol/L Potassium (3.5-5.1) mmol/L BUN (9-20) mg/dL Glucose (74-99) mg/dL POC Glucose (mg/dL) 291 H 311 H (75-99) mg/dL Lactate Dehydrogenase (313-618) U/L 05/31/20 05/31/20 05/31/20 Range/Units 06:30 06:30 06:58 WBC 22.9 H (3.8-10.6) k/uL RBC 4.20 L (4.30-5.90) m/uL Neutrophils # 20.6 H (1.3-7.7) k/uL D-Dimer (<0.60) mg/L FEU Sodium 136 L (137-145) mmol/L Potassium 5.6 H (3.5-5.1) mmol/L BUN 55 H (9-20) mg/dL Glucose 322 H (74-99) mg/dL POC Glucose (mg/dL) 321 H (75-99) mg/dL Lactate Dehydrogenase 1059 H (313-618) U/L 05/31/20 Range/Units 11:19 WBC (3.8-10.6) k/uL RBC (4.30-5.90) m/uL Neutrophils # (1.3-7.7) k/uL D-Dimer (<0.60) mg/L FEU Sodium (137-145) mmol/L Potassium (3.5-5.1) mmol/L BUN (9-20) mg/dL Glucose (74-99) mg/dL POC Glucose (mg/dL) 302 H (75-99) mg/dL Lactate Dehydrogenase (313-618) U/L Assessment and Plan Assessment: Assessment: -Acute hypoxic respiratory failure: Secondary to covid 19 pneumonia -Type 2 diabetes mellitus uncontrolled -Hyperkalemia, improved -Hypotonic hyponatremia, improved -Acute renal failure secondary to Covid 19: Improved, current creatinine is 1.2 -Hypertension -DVT subcutaneous Lovenox -Full code Plan: Continue with current medications. Will continue IV Solu-Medrol with vitamin and zinc supplements, and lovenox . patient has received Tocilizumab x2. Pulmonary following . Patient currently on intermittent nonrebreather along with airvo slowly weaning as tolerated. Inflammatory markers trending down today and will repeat and monitor closely tomorrow. Repeat chest x-ray shows stable infiltrates. Elevated blood sugars secondary to systemic steroids, continue with pre-meal, sliding scale, and long-acting, with adjustments made and will increase pre-male and long-acting doses. PT/OT following and patient may likely require ECF for continued PT/OT therapy due to weakness once stabilized and discharged. Will continue to monitor closely and make further recommendations based on the clinical course of the patient. Prognosis remains guarded.
--- NOTE | 2020-06-02 00:25 | P.PN ---
Subjective Progress Note Date: 06/01/20 Principal diagnosis: COVID pneumonia 80-year-old male who presents emergency Department stating that he has had shortness of breath and feeling fatigued for at least 2 weeks. Patient states he has had exposure to COVID . Patient states he has had a fever. Patient states she's also states and smile. Patient also states she's had diarrhea. Patient denies any chest pain or palpitations. Patient denies any abdominal pain patient denies nausea vomiting diarrhea. According to EMS with the patient was coming in he was satting in the low 80s. Patient is currently on a few liters of oxygen and sat in mid 90s. Patient is a diabetic and has high blood pressure. Patient also has a pacemaker. Patient is presently on 2 L of oxygen was requiring 4 L yesterday. Patient was started on IV fluids patient creatinine went up to 1.6 baseline is around 1. Patient's blood sugars are highly elevated. Patient tests positive for Covid. 05/22/2020 Patient is presently on 2 L of oxygen appears to be doing better possibility of discharge tomorrow. Creatinine went up a bit to 1.6 baseline is around the 1. Patient was started on IV fluids will recheck the basic metabolic profile tomorrow. 05/23/2020 Patient seen and evaluated in follow-up continues to be on 2 L of oxygen and becomes dyspneic with exertion. Patient states he does not know wear oxygen at home. Pulmonary is following. Patient's blood sugars are elevated and will continue sliding scale at this time as patient is on steroids. Potassium was found to be slightly elevated at 5.5 and was given a dose of Kayexalate. Will repeat a.m. labs. Instructed and encouraged the patient to get up and increase activity as tolerated. 05/24/2020 Patient is presently in 2 does of hours and doing clinically well. Patient is on dexamethasone, vitamin supplements, subcutaneous heparin. No worsening shortness of breath, cough or congestion. D-dimer 1.02. Sodium 145. Potassium 5.1. Creatinine 1.3. LDH 485. C-reactive protein 4.4. His creatinine actually went up a little bit from 1.19-1.3 05/25/2020 Patient is fairly stable no significant improvement or worsening. Patient is still on 2 L of oxygen. We'll monitor him 1 more night. Continues to require oxygen patient probably can be discharged on 2 L tomorrow this can be tapered or discontinued as an outpatient. Patient d-dimer is bit worse compared to admission. Although other inflammatory markers are better 05/26/2020 Patient is seen this morning currently on nonrebreather and airvo as his oxygen was found to be 89% on 6 L of oxygen. Pulmonary is following. D-dimer has gone up at 1.70 along with lactate dehydrogenase at 491 and CRP is 9.4. Blood sugars continue to be elevated and patient is maintained on sliding scale along with long-acting and pre-meal insulin and will continue at this time. Patient continues on vitamin and zinc supplements along with Lovenox and dexamethasone daily. Patient is scheduled to receive Tocilizumab today. Will continue to monitor closely based on the clinical course of the patient. Patient continues to be weak and was seen and evaluated by physical therapy recommending subacute rehab and patient is now agreeable and a social work consult was placed. 05/27/2020 Patient is seen and evaluated this morning with no improvement in respiratory status. Patient remains on Airvo with supplemental nonrebreather. Patient is day 2 of receiving Tocilizumab. Will repeat a.m. chest x-ray along with in flammatory markers. D-dimer today was 1.60. White blood count has gone up in is 10.8, hemoglobin is 12.6. Patient is afebrile. To continue with dexamethasone, Lovenox, vitamin C and zinc supplements. Pulmonary is following. Had a discussion with the patient about CODE STATUS along with his son Mauricio and currently wish to remain a full code until talking with family member more extensively about the situation. Will continue to monitor closely. Prognosis remains guarded. 05/28/2020 Patient is seen this morning status post getting up to the bathroom and continues to be extremely dyspneic with any exertion and was found to be low 80s to 83% oxygenation. Patient continues on the airvo with a flow rate of 60 and FiO2 of 64 and is currently 91%. Patient denies any chest pain or palpitations. Patient is afebrile. Patient reports to tolerating diet with no nausea or vomiting noted. D-dimer continues to be elevated at 2.56, sodium today is 140 with a potassium of 5.1 and creatinine is 1.2. Blood sugars on the lower side this morning and will continue to monitor closely and treat accordingly with sliding scale. Inflammatory markers trending down. Pulmonary following closely. Chest x-ray today shows continued bibasilar infiltrates which are nonspecific but worsening. 05/29/2020 Patient is seen in follow-up this morning and continues to be on Airvo no significant change. Patient was on dexamethasone all being transitioned to IV Solu-Medrol and will continue with Accu-Cheks and close glycemic control with pre-meal, long-acting, and sliding scale. White blood count is 13.9, hemoglobin is stable at 13.2, d-dimer is 2.95, sodium is 137, potassium is 5.1, creatinine slightly elevated at 1.24. Inflammatory markers have gone up. Patient is sitting up in the chair and denies any chest pain or worsening shortness of breath. Patient states he feels he is about the same. Patient also states he has been sleeping a lot and tolerating diet with no reports of nausea or vom iting. Discussed with patient about increasing activity as tolerated although patient is extremely dyspneic with minimal exertion. 05/30/2020 Patient is seen and evaluated this morning and follow-up with no acute overnight issues. Patient continues to be on Airvo with a flow rate of 60 and FiO2 of 70 and is being closely monitored. Transitioned to IV Solu-Medrol and will continue at this time. Blood sugars elevated and increasing long-acting and pre-meal insulins and will continue sliding scale along with oral antidiabetic agents. Need tighter glycemic control. Patient has been eating 100% of all meals with no reports of nausea or vomiting noted. Patient clinically looking better and chest x-ray displays stable infiltrates. D-dimer slightly trending down along with inflammatory markers. Creatinine is stable at 1.2 and potassium is 5.5. Will continue to monitor vital signs and labs closely. On 05/31/2020 -patient is seen and examined at the bedside. He is sitting up in the chair and is on Airvo 60 L with FiO2 of 70%, saturating about 90%. He still complains of exertional dyspnea and cough at times. Denies having any fevers chills or rigors. He complains of generalized weakness. On reviewing his vitals temperature of 97.9, heart rate 63, respiratory rate 18, blood pressure 120 x 62 . On reviewing his labs white count of 22.9, hemoglobin 13, platelets 299. Sodium 136, potassium 5.6, chloride 104, bicarb 26, BUN 55, creatinine 1.15. Blood sugars running on the higher side around 300s. Patient had a chest x-ray done this morning showing mild to moderate mid and lower zone infiltrates. On 06/01/2020 -patient is seen and examined at bedside. He is sitting up in a chair at fifth high flow oxygen at 60 L FiO2 of 70% and pulse ox at 94%. He is still having exertional dyspnea and complains of generalized weakness. He states that he is tired of using the oxygen. On reviewing the vitals T-max of 97.9, heart rate 60, respiratory 19, blood pressure 130/60. Reviewing the labs LDH 378, CRP less than 0.04 and D-dimer of 1.53. All medications have been reviewed and pertinent changes made. Objective - Vital Signs Vital signs: Vital Signs Temp 98.2 F 06/01/20 14:00 Pulse 60 06/01/20 14:00 Resp 18 06/01/20 14:00 BP 134/61 06/01/20 14:00 Pulse Ox 93 L 06/01/20 14:00 Intake & Output 05/31/20 06/01/20 06/01/20 18:59 06:59 18:59 Output Total 775 Balance -775 Output: Urine 775 Other: Voiding Method Bedside Commode Bedside Commode Urinal Urinal # Voids 2 2 - Exam GENERAL: The patient is alert and oriented x3, not in any acute distress. Obese, ill appearing HEENT: Pupils are round and equally reacting to light. EOMI. No scleral icterus. No conjunctival pallor. . CARDIOVASCULAR: S1 and S2 present. No murmurs, rubs, or gallops. PULMONARY: Diminished breath sounds with diffuse rhonchi ABDOMEN: Soft, nontender, nondistended, normoactive bowel sounds. MUSCULOSKELETAL: No joint swelling or deformity. EXTREMITIES: No cyanosis, clubbing, Mil pedal edema. NEUROLOGICAL: Gross neurological examination did not reveal any focal deficits. SKIN: No rashes. - Labs CBC & Chem 7: 05/31/20 06:30 05/31/20 06:30 Labs: Abnormal Lab Results - Last 24 Hours (Table) 05/31/20 05/31/20 06/01/20 Range/Units 16:27 20:25 06:10 D-Dimer 1.53 H (<0.60) mg/L FEU POC Glucose (mg/dL) 372 H 381 H (75-99) mg/dL Lactate Dehydrogenase (120-246) U/L 06/01/20 06/01/20 06/01/20 Range/Units 06:10 06:57 11:37 D-Dimer (<0.60) mg/L FEU POC Glucose (mg/dL) 224 H 301 H (75-99) mg/dL Lactate Dehydrogenase 378 H (120-246) U/L Assessment and Plan Assessment: Assessment: -Acute hypoxic respiratory failure: Secondary to covid 19 pneumonia -Type 2 diabetes mellitus uncontrolled -Hyperkalemia, improved -Hypotonic hyponatremia, improved -Acute renal failure secondary to Covid 19: Improved, current creatinine is 1.2 -Hypertension -DVT subcutaneous Lovenox -Full code Plan: Continue with current medications. Will continue IV Solu-Medrol with vitamin and zinc supplements, and lovenox . patient has received Tocilizumab x2. Inflammatory markers and chest x-ray will be followed. Elevated blood sugars secondary to systemic steroids, continue with pre-meal, sliding scale, and long- acting, with adjustments made and will increase pre-male and long-acting doses. PT/OT following and patient may likely require ECF for continued PT/OT therapy due to weakness once stabilized and discharged. Will continue to monitor closely and make further recommendations based on the clinical course of the patient. He is response to treatment is gradual. Prognosis remains guarded.
[2020-06-02] MEDS: methylPREDNISolone SOD SUCCI 125 MG/2 ML VIAL IV SCH ×4 (04:51→23:00)
[2020-06-02 07:13] LABS: Glucose,Whole Blood 224 mg/dL (75-99)
[2020-06-02] MEDS: glipiZIDE 10 MG TAB PO SCH ×2 (07:35→21:30)
[2020-06-02] MEDS: ASPIRIN 81 MG PO SCH (07:35)
[2020-06-02] MEDS: PIOGLITAZONE 30 MG TAB PO SCH (07:35)
[2020-06-02] MEDS: CLOPIDOGREL 75 MG TAB PO SCH (07:36)
[2020-06-02] MEDS: FAMOTIDINE 20 MG TAB PO SCH (07:36)
[2020-06-02] MEDS: ENOXAPARIN 40 MG/0.4 ML SYRINGE SQ SCH (07:36)
[2020-06-02] MEDS: METOPROLOL SUCCINATE (ER) 50 MG TAB.ER.24H PO SCH (07:36)
[2020-06-02] MEDS: ASCORBIC ACID 500 MG TAB PO SCH (07:36)
[2020-06-02] MEDS: INSULIN ASPART (NovoLOG) 100 UNIT/ML VIAL SQ SCH ×7 (07:36→21:30)
[2020-06-02] MEDS: ATORVASTATIN 80 MG TAB PO SCH (07:36)
[2020-06-02] MEDS: ZINC SULFATE 220 MG CAP PO SCH (07:36)
[2020-06-02 08:47] LABS: Basophils # (A) 0.03 X 10*3/uL (0.00-0.10); Basophils % (A) 0.2 %; Eosinophils # (A) 0 X 10*3/uL (0.04-0.35); Eosinophils % (A) 0 %; HCT 41.5 % (39.6-50.0); HGB 13.2 g/dL (13.0-17.0); Lymphocytes % (A) 5.9 %; MCH 30.4 pg (27.0-32.0); MCHC 31.8 g/dL (32.0-37.0); MCV 95.6 fL (80.0-97.0); Mean Platelet Volume 11.7 fL (9.5-12.2); Monocytes # (A) 0.96 X 10*3/uL (0.20-1.00); Monocytes % (A) 5.2 %; Neutrophils # (A) 16.29 X 10*3/uL (1.80-7.70); Neutrophils % (A) 87.3 %; Platelet Count 293 X 10*3/uL (140-440); RBC 4.34 X 10*6/uL (4.40-5.60); RDW 13.6 % (11.5-14.5); WBC 18.64 X 10*3/uL (4.50-10.00)
[2020-06-02 10:03] LABS: African American GFR (CKD) 65.3 (60.0-200.0); C Reactive Protein <0.4 mg/dL (0.0-0.8); Calcium 8.8 mg/dL (8.7-10.3); Carbon Dioxide 24.2 mmol/L (21.6-31.8); Chloride 106 mmol/L (96-109); Glucose 241 mg/dL (70-110); Non-African American GFR(CKD) 56.4 (60.0-200.0); Potassium 6.1 mmol/L (3.5-5.5); Sodium 136 mmol/L (135-145)
[2020-06-02] MEDS ORDERED: DEXTROSE 50% SYRINGE 50 ML IVP STA (10:34)
[2020-06-02] MEDS ORDERED: INSULIN REGULAR 100 UNIT/ML VIAL IV ONE (10:34)
[2020-06-02 12:10] LABS: Glucose,Whole Blood 326 mg/dL (75-99)
[2020-06-02 12:58] LABS: LDH 503 U/L (120-246)
--- NOTE | 2020-06-02 14:53 | P.PN ---
Subjective Progress Note Date: 06/02/20 80-year-old male who presents emergency Department stating that he has had shortness of breath and feeling fatigued for at least 2 weeks. Patient states he has had exposure to COVID . Patient states he has had a fever. Patient states she's also states and smile. Patient also states she's had diarrhea. Patient denies any chest pain or palpitations. Patient denies any abdominal pain patient denies nausea vomiting diarrhea. According to EMS with the patient was coming in he was satting in the low 80s. Patient is currently on a few liters of oxygen and sat in mid 90s. Patient is a diabetic and has high blood pressure. Patient also has a pacemaker. Patient is presently on 2 L of oxygen was requiring 4 L yesterday. Patient was started on IV fluids patient creatinine went up to 1.6 baseline is around 1. Patient's blood sugars are highly elevated. Patient tests positive for Covid. 05/22/2020 Patient is presently on 2 L of oxygen appears to be doing better possibility of discharge tomorrow. Creatinine went up a bit to 1.6 baseline is around the 1. Patient was started on IV fluids will recheck the basic metabolic profile tomorrow. 05/23/2020 Patient seen and evaluated in follow-up continues to be on 2 L of oxygen and becomes dyspneic with exertion. Patient states he does not know wear oxygen at home. Pulmonary is following. Patient's blood sugars are elevated and will continue sliding scale at this time as patient is on steroids. Potassium was found to be slightly elevated at 5.5 and was given a dose of Kayexalate. Will repeat a.m. labs. Instructed and encouraged the patient to get up and increase activity as tolerated. 05/24/2020 Patient is presently in 2 does of hours and doing clinically well. Patient is on dexamethasone, vitamin supplements, subcutaneous heparin. No worsening shortness of breath, cough or congestion. D-dimer 1.02. Sodium 145. Potassium 5.1. Creatinine 1.3. LDH 485. C-reactive protein 4.4. His creatinine actually went up a little bit from 1.19-1.3 05/25/2020 Patient is fairly stable no significant improvement or worsening. Patient is still on 2 L of oxygen. We'll monitor him 1 more night. Continues to require oxygen patient probably can be discharged on 2 L tomorrow this can be tapered or discontinued as an outpatient. Patient d-dimer is bit worse compared to admission. Although other inflammatory markers are better 05/26/2020 Patient is seen this morning currently on nonrebreather and airvo as his oxygen was found to be 89% on 6 L of oxygen. Pulmonary is following. D-dimer has gone up at 1.70 along with lactate dehydrogenase at 491 and CRP is 9.4. Blood sugars continue to be elevated and patient is maintained on sliding scale along with long-acting and pre-meal insulin and will continue at this time. Patient continues on vitamin and zinc supplements along with Lovenox and dexamethasone daily. Patient is scheduled to receive Tocilizumab today. Will continue to monitor closely based on the clinical course of the patient. Patient continues to be weak and was seen and evaluated by physical therapy recommending subacute rehab and patient is now agreeable and a social work consult was placed. 05/27/2020 Patient is seen and evaluated this morning with no improvement in respiratory status. Patient remains on Airvo with supplemental nonrebreather. Patient is day 2 of receiving Tocilizumab. Will repeat a.m. chest x-ray along with inflammatory markers. D-dimer today was 1.60. White blood count has gone up in is 10.8, hemoglobin is 12.6. Patient is afebrile. To continue with dexametha sone, Lovenox, vitamin C and zinc supplements. Pulmonary is following. Had a discussion with the patient about CODE STATUS along with his son Mauricio and currently wish to remain a full code until talking with family member more extensively about the situation. Will continue to monitor closely. Prognosis remains guarded. 05/28/2020 Patient is seen this morning status post getting up to the bathroom and continues to be extremely dyspneic with any exertion and was found to be low 80s to 83% oxygenation. Patient continues on the airvo with a flow rate of 60 and FiO2 of 64 and is currently 91%. Patient denies any chest pain or palpitations. Patient is afebrile. Patient reports to tolerating diet with no nausea or vomiting noted. D-dimer continues to be elevated at 2.56, sodium today is 140 with a potassium of 5.1 and creatinine is 1.2. Blood sugars on the lower side this morning and will continue to monitor closely and treat accordingly with sliding scale. Inflammatory markers trending down. Pulmonary following closely. Chest x-ray today shows continued bibasilar infiltrates which are nonspecific but worsening. 05/29/2020 Patient is seen in follow-up this morning and continues to be on Airvo no significant change. Patient was on dexamethasone all being transitioned to IV Solu-Medrol and will continue with Accu-Cheks and close glycemic control with pre-meal, long-acting, and sliding scale. White blood count is 13.9, hemoglobin is stable at 13.2, d-dimer is 2.95, sodium is 137, potassium is 5.1, creatinine slightly elevated at 1.24. Inflammatory markers have gone up. Patient is sitting up in the chair and denies any chest pain or worsening shortness of breath. Patient states he feels he is about the same. Patient also states he has been sleeping a lot and tolerating diet with no reports of nausea or vomiting. Discussed with patient about increasing activity as tolerated although patient is extremely dyspneic with minimal exertion. 05/30/2020 Patient is seen and evaluated this morning and follow-up with no acute overnight issues. Patient continues to be on Airvo with a flow rate of 60 and FiO2 of 70 and is being closely monitored. Transitioned to IV Solu-Medrol and will continue at this time. Blood sugars elevated and increasing long-acting and pre-meal insulins and will continue sliding scale along with oral antidiabetic agents. Need tighter glycemic control. Patient has been eating 100% of all meals with no reports of nausea or vomiting noted. Patient clinically looking better and chest x-ray displays stable infiltrates. D-dimer slightly trending down along with inflammatory markers. Creatinine is stable at 1.2 and potassium is 5.5. Will continue to monitor vital signs and labs closely. On 05/31/2020 -patient is seen and examined at the bedside. He is sitting up in the chair and is on Airvo 60 L with FiO2 of 70%, saturating about 90%. He still complains of exertional dyspnea and cough at times. Denies having any fevers chills or rigors. He complains of generalized weakness. On reviewing his vitals temperature of 97.9, heart rate 63, respiratory rate 18, blood pressure 120 x 62 . On reviewing his labs white count of 22.9, hemoglobin 13, platelets 299. Sodium 136, potassium 5.6, chloride 104, bicarb 26, BUN 55, creatinine 1.15. Blood sugars running on the higher side around 300s. Patient had a chest x-ray done this morning showing mild to moderate mid and lower zone infiltrates. On 06/01/2020 -patient is seen and examined at bedside. He is sitting up in a chair at fifth high flow oxygen at 60 L FiO2 of 70% and pulse ox at 94%. He is still having exertional dyspnea and complains of generalized weakness. He states that he is tired of using the oxygen. On reviewing the vitals T-max of 97.9, heart rate 60, respiratory 19, blood pressure 130/60. Reviewing the labs LDH 378, CRP less than 0.04 and D-dimer of 1.53. All medications have been reviewed and pertinent changes made. 06/02/2020 Patient is seen and evaluated this morning with no acute overnight issues. Patient continues to sit up in the chair throughout most of the day as he states his breathing is better. Patient continues to be on Airvo and flow rate has been decreased to 40 with an FiO2 of 70% and is currently 92%. Patient con tinues to have dyspnea with minimal exertion and continues to have weakness and will likely require some form rehab once stabilized and discharged. PT/OT to continue to follow. White blood count trending down at 18.64 and hemoglobin is stable at 13.2. D-dimer is 1.60 with a sodium of 136 and potassium was found to be 6.1 and being corrected and will repeat a.m. labs. Creatinine is 1.2. Blood sugars continue to be elevated and will continue with sliding scale and long- acting and monitor closely. LDH trending back up at 503 and will monitor closely. CRP is 0.4. Constitutional: Reports fatigue although slightly more awake today, denied any fever. Cardio vascular: denied any chest pain, palpitations Gastrointestinal denied any nausea vomiting Pulmonary: Reports continued shortness of breath but feels has improved slightly Neurologic reports generalized weakness All inpatient medications were reviewed and appropriate changes in these medications as dictated in the interval history and assessment and plan. Objective - Vital Signs Vital signs: Vital Signs Temp 98.0 F 06/02/20 06:00 Pulse 59 L 06/02/20 06:00 Resp 18 06/02/20 06:00 BP 153/72 06/02/20 06:00 Pulse Ox 92 L 06/02/20 08:52 Intake & Output 06/01/20 06/02/20 06/02/20 18:59 06:59 18:59 Output Total 450 Balance -450 Output: Urine 450 Other: Voiding Method Urinal # Voids 2 1 - Exam GENERAL: The patient is alert and oriented x3, not in any acute distress. Obese, currently on airvo at a flow rate of 40 with an FiO2 of 70, continue to wean as tolerated HEENT: Pupils are round and equally reacting to light. EOMI. No scleral icterus. No conjunctival pallor. Normocephalic, atraumatic. No pharyngeal erythema. No thyromegaly. CARDIOVASCULAR: S1 and S2 present. No murmurs, rubs, or gallops. PULMONARY: Diminished breath sounds bilaterally with no wheezing or rhonchi noted ABDOMEN: Soft, nontender, nondistended, normoactive bowel sounds. No palpable organomegaly. MUSCULOSKELETAL: No joint swelling or deformity. EXTREMITIES: No cyanosis, clubbing, or pedal edema. NEUROLOGICAL: Gross neurological examination did not reveal any focal deficits. SKIN: No rashes. - Labs CBC & Chem 7: 06/02/20 06:17 06/02/20 06:17 Labs: Abnormal Lab Results - Last 24 Hours (Table) 06/01/20 06/01/20 06/01/20 Range/Units 11:37 16:33 20:28 WBC (4.50-10.00) X 10*3/uL RBC (4.40-5.60) X 10*6/uL MCHC (32.0-37.0) g/dL Immature Gran # (0.00-0.04) X 10*3/uL Neutrophils # (1.80-7.70) X 10*3/uL Eosinophils # (0.04-0.35) X 10*3/uL D-Dimer (<0.60) mg/L FEU Potassium (3.5-5.5) mmol/L BUN (9.0-27.0) mg/dL Est GFR (CKD-EPI)NonAf (60.0-200.0) BUN/Creatinine Ratio (12.00-20.00) Ratio Glucose (70-110) mg/dL POC Glucose (mg/dL) 301 H 315 H 321 H (75-99) mg/dL 06/02/20 06/02/20 06/02/20 Range/Units 06:17 06:17 06:17 WBC 18.64 H (4.50-10.00) X 10*3/uL RBC 4.34 L (4.40-5.60) X 10*6/uL MCHC 31.8 L (32.0-37.0) g/dL Immature Gran # 0.26 H (0.00-0.04) X 10*3/uL Neutrophils # 16.29 H (1.80-7.70) X 10*3/uL Eosinophils # 0 L (0.04-0.35) X 10*3/uL D-Dimer 1.60 H (<0.60) mg/L FEU Potassium 6.1 H* (3.5-5.5) mmol/L BUN 57.0 H (9.0-27.0) mg/dL Est GFR (CKD-EPI)NonAf 56.4 L (60.0-200.0) BUN/Creatinine Ratio 47.50 H (12.00-20.00) Ratio Glucose 241 H (70-110) mg/dL POC Glucose (mg/dL) (75-99) mg/dL 06/02/20 Range/Units 07:10 WBC (4.50-10.00) X 10*3/uL RBC (4.40-5.60) X 10*6/uL MCHC (32.0-37.0) g/dL Immature Gran # (0.00-0.04) X 10*3/uL Neutrophils # (1.80-7.70) X 10*3/uL Eosinophils # (0.04-0.35) X 10*3/uL D-Dimer (<0.60) mg/L FEU Potassium (3.5-5.5) mmol/L BUN (9.0-27.0) mg/dL Est GFR (CKD-EPI)NonAf (60.0-200.0) BUN/Creatinine Ratio (12.00-20.00) Ratio Glucose (70-110) mg/dL POC Glucose (mg/dL) 224 H (75-99) mg/dL Assessment and Plan Assessment: -acute hypoxic respiratory failure: Secondary to covid 19 pneumonia patient maintained on vitamin and zinc supplements. Patient currently on IV solu- Medrol. has received 2 doses of Tocilizumab and is continued on Lovenox. inflammatory markers ,Patient currently on Airvo. Pulmonary following -Type 2 diabetes mellitus uncontrolled elevated blood sugars secondary to systemic steroids, continue with pre-meal, sliding scale, and long-acting, with adjustments made and will increase pre-male and long-acting doses -Hyperkalemia, improved -Hypotonic hyponatremia, improved -Acute renal failure secondary to Covid 19: Improved, current creatinine is 1.2 -Hypertension -DVT subcutaneous Lovenox -Full code Plan: Continue with current medications. Will continue IV Solu-Medrol with vitamin and zinc supplements, and lovenox . patient has received Tocilizumab x2. Pulmonary following . Patient currently on airvo and slowly weaning as tolerated. PT/OT following and patient may likely require ECF for continued PT/OT therapy due to weakness once stabilized and discharged. Patient response to treatment is slow. Will continue to monitor closely. Prognosis remains guarded.
[2020-06-02 16:52] LABS: Glucose,Whole Blood 311 mg/dL (75-99)
--- NOTE | 2020-06-02 17:27 | P.PN ---
Subjective Progress Note Date: 06/02/20 Principal diagnosis: CoVID 19 pneumonia 80-year-old male, who was brought to the emergency department by EMS. The patient apparently has had 2 weeks' worth of increasing shortness of breath, and significant fatigue. The patient also had chest congestion. He had a fever. The patient states that he is just not been feeling well and getting progressively worse. He also apparently had an episode or 2 of diarrhea. The patient denied any chest pain or chest pressure or palpitations. The patient also denied nausea, vomiting, and abdominal pain. Apparently when EMS arrived, the patient's saturations were in the low 80s on room air. For that reason, he was transported in, evaluated, and admitted with a diagnosis of COVID 19 19 pneumonia. The patient does have a history of diabetes, hypertension, and a previous pacemaker insertion. White count was 4.6, hemoglobin 12.5, hematocrit 37.1, and platelet count 153,000. PT, INR, and PTT were all normal. D-dimer was 0.77. Sodium 136, potassium 4.5, chlorides 102, CO2 26, anion gap 8, BUN 47, and creatinine 1.63. Ferritin was 985, LDH 818, C-reactive protein 58, and pro-calcitonin level was 0.12. Chest x-ray did show some interstitial infiltrates. On 05/22/2020 patient seen in follow-up on medical floor. he is on 2 L of oxygen his pulse ox is 90-94%, breathing comfortably, no fever or chills, blood pressure has been stable. Denies any worsening dyspnea or hypoxemia, he has a mild cough, no chest discomfort. He continues on oral Decadron 6 mg daily, IV hydration, vitamins, d-dimer was low at 0.77, patient is on subcu heparin for DVT prophylaxis, pro-calcitonin level was low, inflammatory markers were not significantly elevated on admission. Clinically symptoms have not progressed, and patient will be considered for discharge in next 24 hours. The patient is seen today 05/23/2020 in follow-up on the regular medical floor. He is currently sitting up in chair at the bedside. Awake and alert in no acute distress. Continue O2 saturations in the low 90s on 2 L/m per nasal cannula. Afebrile. Hemodynamically stable. Blood cultures reveal no growth. Blood glucose 202. Sodium 143. Potassium 5.5. Creatinine 1.19. He remains on dexamethasone, so continues heparin, vitamin supplements. Chest x-ray continues to show bilateral multifocal opacities consistent with CoVID infection. No neri ge. The patient is seen today 05/24/2020 in follow-up on the regular medical floor. He is currently resting comfortably in bed. Awake and alert in no acute distress. He is maintaining O2 saturations in the 90s on 2 L/m per nasal cannula. He's been on dexamethasone, vitamin supplements, subcutaneous heparin. No worsening shortness of breath, cough or congestion. D-dimer 1.02. Sodium 145. Potassium 5.1. Creatinine 1.3. LDH 485. C-reactive protein 4.4. The patient is seen today 05/25/2020 in follow-up on the regular medical floor. He is currently resting quite comfortably in bed. Maintaining O2 saturations in the low 90s on 2 L/m per nasal cannula. Sodium 144. Potassium 4.7. Creatinine 1.2. Glucose 173. He remains on dexamethasone, heparin, vitamin supplements. 05/26/2020 on seeing the patient for a follow-up regarding the patient's acute hypoxic respiratory failure due to Covid 19 related pneumonia. The patient was not a candidate for Remdesivir, Tocilizumab or convalescent plasma, and the patient is currently on Decadron 6 mg on a daily basis and addition to Levemir insulin 50 units daily at bedtime and NovoLog 6 units 3 times a day with meals and a sliding scale coverage. The patient was on 2 L about 2 by nasal cannula with pulse ox of 93%. Earlier this morning, the patient's oxidation progressively got worse in the patient is currently on 100% nonrebreather facemask maintaining a saturation above 90% at around 94%. Overall, the patient is doing well. Creatinine is at 1.2. The patient had a CRP level of 4.4 with an LDH level of 485 from 05/24/2020. Inflammatory markers are being monitored. Last d-dimer from 05/24/2020 was 1.02. Blood cultures were negative repeat chest x-ray was done today and the findings are essentially stable and the pat ient has patchy bilateral perihilar pulmonary infiltrates without any significant interval change. D-dimer from today is at 1.7 and the patient remains on Lovenox. 05/27/2020 the patient is being seen for a follow-up. The patient is currently on high flow oxygen at 6 L. Note that the patient was on 100% nonrebreather facemask and was switched him to a high flow oxygen yesterday at 60 L. As part of his treatment, the patient received steroids and currently is receiving dexamethasone 6 mg by mouth daily. He is also Toci 2 yesterday and today. He completed treatment without any major side effects. Note that the patient was on low-flow oxygen and he progressively got worse requiring 100% nonrebreather and subsequent high flow oxygen. On today's evaluation, his white cell count is at 10. His d-dimer is at 1.6. Rest of the inflammatory markers have not been checked and this will be repeated tomorrow. LDH from yesterday was 491 with a CRP of 9.4. Otherwise, his renal function shows a stable creatinine of 1.2. The patient has been on FiO2 of 60% with a high flow oxygen of 60 L and the patient has been essentially stable since yesterday. No other significant events. Remains on Lovenox 40 mg subcu on a daily basis. 05/28/2020, the patient is still on high flow oxygen and 60 L. He is not utilizing the 100% nonrebreather facemask this morning. Note that the patient has received steroids, and he remains on Decadron 6 mg by mouth daily. He also completed Tocilizumab. On today's evaluation, chest x-ray findings are stable without any interval change in the bilateral pulmonary infiltrates. The patient is resting comfortably in bed. He is also able to move on a recliner. Labs today shows an LDH of 414 and a CRP of 2.9 and the patient is d-dimer is at 2.56. The patient remains on Lovenox 40 mg subcu on a daily basis. He is on Levemir insulin 50 units daily along with NovoLog 6 units with meals plus a sliding coverage. I will say his condition essentially the same as unchanged compared to yesterday. He is not doing much in progress for now. On today's evaluation of 05/29/2020 the patient is being seen for a follow-up. The patient remains on high flow oxygen with a flow of 6 L an FiO2 of 60%. His current pulse ox is around 88%. He is afebrile. He is doing well. Sitting up on a chair. No signs of any respiratory distress. His breathing is nonlabored and he doesn't have any significant cough unless he takes a deep inspiration. The patient had follow-up blood work today. His LDL level is up 1221 and a CRP level is up to 12.6 and his d-dimer currently is at 2.95. I cannot explain the rise in these inflammatory markers. His creatinine is at 1.2. Was a causative 13.7 with a hemoglobin of 13.2. His chest x-ray from yesterday was showing right basilar infiltrates which are nonspecific and it was mentioned that he was getting worse. The patient remains on Decadron 6 mg by mouth daily. He remains on 50 units of Levemir insulin along with 6 units of NovoLog [id number]. He remains on aspirin. He remains on Lovenox for DVT prophylaxis 40 mg subcu. 05/30/2020 the patient is on high flow oxygen at 60 L with an FiO2 of 70%. His pulse ox was around 93%. He feels well. No altered mentation. Resting comfortably. Sitting up and he has no significant shortness of breath at rest. His chest x-ray still showing diffuse bilateral pulmonary infiltrates, peripheral distribution, probably slightly worse compared to yesterday. However, the radiologist reports is stating that the findings are essentially stable. Clinically he is also stable. The labs from today shows a sugar of 407 is quite high and a d-dimer is down to 1.89 and the patient's LDH level is down to 419 with a CRP level of 0.7. The patient remains on Levemir insulin and is currently taking 50 units along with 6 units with meals of NovoLog. 05/31/2020 the patient remains on high flow at 60 L with an FiO2 of 70% which is essentially the same as yesterday. His pulse ox currently is around 93%. His chest x-ray from today is showing diffuse bilateral pulmonary infiltrates, peripheral distribution, I thought his chest x-ray and probably the x-ray findings are improved compared to yesterday's chest x-ray. I have the patient on Solu-Medrol 60 mg every 6 hours. He is also on anticoagulation. He is receiving Lovenox.. His d-dimer is at 1.57 on today's evaluation. His LDH level is high today at 1059 with a CRP of less than 5. He remains on Levemir insulin 50 units along with 6 units of NovoLog with meals and his blood sugars under adequate control for now. He has no other complaints otherwise. Note that initially the patient was started on Decadron and during the course of his treatment he was given Toci 06/01/2020, the patient is on high flow oxygen at 60 L along with an FiO2 of 70%. Pulse ox is in order of 96%. I'm hoping to get down the FiO2 further today. The patient is on IV Solu-Medrol. He is on long-term anticoagulation. He is receiving Lovenox at a dose of 40 mg subcu on a daily basis. In terms of inflammatory markers and blood work, the patient's CRP is less than 0.4 and the LDH level is at 378. The chest x-ray was done yesterday showed some lower lobe active pulmonary infiltrates, findings are unchanged. The patient is awake and alert and following commands and answering questions. He is on Levemir insulin as a dose of 60 daily at bedtime and he is also on NovoLog 10 units with meals and a sliding scale coverage. He has completed tocilizumab The patient is seen today 06/02/2020 in follow-up on the regular medical floor. He is currently sitting up in a chair at the bedside. Awake and alert in no acute distress. He remains on AirVo high flow oxygen at 40 L and 70% FiO2. He is afebrile. White count 18.6. Hemoglobin 13.2. D-dimer 1.6. Sodium 136. Potassium 6.1. Creatinine 1.2. LDH 503. C-reactive protein less than 0.4. Remains on Lovenox, IV Soluj Medrol, vitamin supplements. Objective - Vital Signs Vital signs: Vital Signs Temp 97.7 F 06/02/20 15:05 Pulse 74 06/02/20 15:05 Resp 18 06/02/20 15:05 BP 126/63 06/02/20 15:05 Pulse Ox 90 L 06/02/20 16:19 Intake & Output 06/01/20 06/02/20 06/02/20 18:59 06:59 18:59 Output Total 450 Balance -450 Output: Urine 450 Other: Voiding Method Urinal # Voids 2 1 # Bowel Movements 1 - Exam GENERAL EXAM: Alert, pleasant, 80-year-old male patient, on AirVo high flow oxygen at 40 L and 70% FiO2 comfortable in no apparent distress. HEAD: Normocephalic/atraumatic. EYES: Normal reaction of pupils, equal size. Conjunctiva pink, sclera white. NOSE: Clear with pink turbinates. THROAT: No erythema or exudates. NECK: No masses, no JVD, no thyroid enlargement, no adenopathy. CHEST: No chest wall deformity. Symmetrical expansion. LUNGS: Equal air entry with bibasilar coarse crackles CVS: Regular rate and rhythm, normal S1 and S2, no gallops, no murmurs, no rubs ABDOMEN: Soft, nontender. No hepatosplenomegaly, normal bowel sounds, no guarding or rigidity. EXTREMITIES: No clubbing, no edema, no cyanosis, 2+ pulses and upper and lower extremities. MUSCULOSKELETAL: Muscle strength and tone normal. SPINE: No scoliosis or deformity SKIN: No rashes CENTRAL NERVOUS SYSTEM: No focal deficits, tone is normal in all 4 extremities. PSYCHIATRIC: Alert and oriented -3. Appropriate affect. Intact judgment and insight. - Labs CBC & Chem 7: 06/02/20 06:17 06/02/20 06:17 Labs: Abnormal Lab Results - Last 24 Hours (Table) 06/01/20 06/02/20 06/02/20 Range/Units 20:28 06:17 06:17 WBC 18.64 H (4.50-10.00) X 10*3/uL RBC 4.34 L (4.40-5.60) X 10*6/uL MCHC 31.8 L (32.0-37.0) g/dL Immature Gran # 0.26 H (0.00-0.04) X 10*3/uL Neutrophils # 16.29 H (1.80-7.70) X 10*3/uL Eosinophils # 0 L (0.04-0.35) X 10*3/uL D-Dimer 1.60 H (<0.60) mg/L FEU Potassium (3.5-5.5) mmol/L BUN (9.0-27.0) mg/dL Est GFR (CKD-EPI)NonAf (60.0-200.0) BUN/Creatinine Ratio (12.00-20.00) Ratio Glucose (70-110) mg/dL POC Glucose (mg/dL) 321 H (75-99) mg/dL Lactate Dehydrogenase (120-246) U/L 06/02/20 06/02/20 06/02/20 Range/Units 06:17 07:10 12:08 WBC (4.50-10.00) X 10*3/uL RBC (4.40-5.60) X 10*6/uL MCHC (32.0-37.0) g/dL Immature Gran # (0.00-0.04) X 10*3/uL Neutrophils # (1.80-7.70) X 10*3/uL Eosinophils # (0.04-0.35) X 10*3/uL D-Dimer (<0.60) mg/L FEU Potassium 6.1 H* (3.5-5.5) mmol/L BUN 57.0 H (9.0-27.0) mg/dL Est GFR (CKD-EPI)NonAf 56.4 L (60.0-200.0) BUN/Creatinine Ratio 47.50 H (12.00-20.00) Ratio Glucose 241 H (70-110) mg/dL POC Glucose (mg/dL) 224 H 326 H (75-99) mg/dL Lactate Dehydrogenase 503 H (120-246) U/L 06/02/20 Range/Units 16:48 WBC (4.50-10.00) X 10*3/uL RBC (4.40-5.60) X 10*6/uL MCHC (32.0-37.0) g/dL Immature Gran # (0.00-0.04) X 10*3/uL Neutrophils # (1.80-7.70) X 10*3/uL Eosinophils # (0.04-0.35) X 10*3/uL D-Dimer (<0.60) mg/L FEU Potassium (3.5-5.5) mmol/L BUN (9.0-27.0) mg/dL Est GFR (CKD-EPI)NonAf (60.0-200.0) BUN/Creatinine Ratio (12.00-20.00) Ratio Glucose (70-110) mg/dL POC Glucose (mg/dL) 311 H (75-99) mg/dL Lactate Dehydrogenase (120-246) U/L Assessment and Plan Assessment: 1 Acute hypoxic respiratory failure secondary to CoVID 19 pneumonia, he did receive Tocilizumab 2 History of diabetes mellitus type 2 3 History of hypertension 4 History of chronic sinus disease 5 History of diverticulitis, status post bowel resection 6 Hyperkalemia Plan: The patient was seen and evaluated by Dr. Sidhu Hyperkalemia treated Continue current treatment plan Titrate the FiO2 as tolerated Prognosis is guarded We will continue to follow I, the cosigning physician, performed a history & physical examination of the patient. Lungs sounds crackles in the bilateral posterior bases. Maintaining good O2 saturations in the 90s onAirVo high flow oxygen at 40 L and 70% FiO2. I discussed the assessment and plan of care with my nurse practitioner, Krupa Alarcon. I attest to the above note as dictated by her.
[2020-06-02 21:08] LABS: Glucose,Whole Blood 303 mg/dL (75-99)
[2020-06-02] MEDS: INSULIN DETEMIR (LEVEMIR) 100 UNIT/ML SYR SQ SCH (21:31)
[2020-06-03] MEDS: methylPREDNISolone SOD SUCCI 125 MG/2 ML VIAL IV SCH ×4 (05:33→23:41)
[2020-06-03 07:19] LABS: Glucose,Whole Blood 214 mg/dL (75-99)
[2020-06-03] MEDS: glipiZIDE 10 MG TAB PO SCH ×2 (07:46→20:43)
[2020-06-03] MEDS: PIOGLITAZONE 30 MG TAB PO SCH (07:46)
[2020-06-03] MEDS: ENOXAPARIN 40 MG/0.4 ML SYRINGE SQ SCH (07:47)
[2020-06-03] MEDS: ZINC SULFATE 220 MG CAP PO SCH (07:47)
[2020-06-03] MEDS: INSULIN ASPART (NovoLOG) 100 UNIT/ML VIAL SQ SCH ×7 (07:47→20:42)
[2020-06-03] MEDS: ATORVASTATIN 80 MG TAB PO SCH (07:47)
[2020-06-03] MEDS: ASPIRIN 81 MG PO SCH (07:47)
[2020-06-03] MEDS: FAMOTIDINE 20 MG TAB PO SCH (07:47)
[2020-06-03] MEDS: CLOPIDOGREL 75 MG TAB PO SCH (07:47)
[2020-06-03] MEDS: METOPROLOL SUCCINATE (ER) 50 MG TAB.ER.24H PO SCH (07:47)
[2020-06-03] MEDS: ASCORBIC ACID 500 MG TAB PO SCH (07:47)
[2020-06-03 10:22] LABS: African American GFR (CKD) 59.3 (60.0-200.0); Albumin/Globulin Ratio 1.25 (1.60-3.17); Anion Gap 5.5 mmol/L (4.00-12.00); BUN/Creat Ratio 48.46 Ratio (12.00-20.00); Calcium 8.7 mg/dL (8.7-10.3); Carbon Dioxide 22.5 mmol/L (21.6-31.8); Globulin 2.4 g/dL (1.6-3.3); Non-African American GFR(CKD) 51.2 (60.0-200.0); Potassium 5.6 mmol/L (3.5-5.5); Total Bilirubin 0.3 mg/dL (0.2-1.2); Total Protein 5.4 g/dL (6.2-8.2)
[2020-06-03] MEDS ORDERED: SODIUM POLYSTYRENE SULFONATE 15 GM/60 ML BOTTLE PO STA (11:25)
[2020-06-03 11:35] LABS: Glucose,Whole Blood 237 mg/dL (75-99)
--- NOTE | 2020-06-03 15:06 | P.PN ---
Subjective 80-year-old male who presents emergency Department stating that he has had shortness of breath and feeling fatigued for at least 2 weeks. Patient states he has had exposure to COVID . Patient states he has had a fever. Patient states she's also states and smile. Patient also states she's had diarrhea. Patient denies any chest pain or palpitations. Patient denies any abdominal pain patient denies nausea vomiting diarrhea. According to EMS with the patient was coming in he was satting in the low 80s. Patient is currently on a few liters of oxygen and sat in mid 90s. Patient is a diabetic and has high blood pressure. Patient also has a pacemaker. Patient is presently on 2 L of oxygen was requiring 4 L yesterday. Patient was started on IV fluids patient creatinine went up to 1.6 baseline is around 1. Patient's blood sugars are highly elevated. Patient tests positive for Covid. 05/22/2020 Patient is presently on 2 L of oxygen appears to be doing better possibility of discharge tomorrow. Creatinine went up a bit to 1.6 baseline is around the 1. Patient was started on IV fluids will recheck the basic metabolic profile to merari. 05/23/2020 Patient seen and evaluated in follow-up continues to be on 2 L of oxygen and bec omes dyspneic with exertion. Patient states he does not know wear oxygen at home. Pulmonary is following. Patient's blood sugars are elevated and will continue sliding scale at this time as patient is on steroids. Potassium was found to be slightly elevated at 5.5 and was given a dose of Kayexalate. Will repeat a.m. labs. Instructed and encouraged the patient to get up and increase activity as tolerated. 05/24/2020 Patient is presently in 2 does of hours and doing clinically well. Patient is on dexamethasone, vitamin supplements, subcutaneous heparin. No worsening shortness of breath, cough or congestion. D-dimer 1.02. Sodium 145. Potassium 5.1. Creatinine 1.3. LDH 485. C-reactive protein 4.4. His creatinine actually went up a little bit from 1.19-1.3 05/25/2020 Patient is fairly stable no significant improvement or worsening. Patient is still on 2 L of oxygen. We'll monitor him 1 more night. Continues to require oxygen patient probably can be discharged on 2 L tomorrow this can be tapered or discontinued as an outpatient. Patient d-dimer is bit worse compared to admission. Although other inflammatory markers are better 05/26/2020 Patient is seen this morning currently on nonrebreather and airvo as his oxygen was found to be 89% on 6 L of oxygen. Pulmonary is following. D-dimer has gone up at 1.70 along with lactate dehydrogenase at 491 and CRP is 9.4. Blood sugars continue to be elevated and patient is maintained on sliding scale along with long-acting and pre-meal insulin and will continue at this time. Patient continues on vitamin and zinc supplements along with Lovenox and dexamethasone daily. Patient is scheduled to receive Tocilizumab today. Will continue to monitor closely based on the clinical course of the patient. Patient continues to be weak and was seen and evaluated by physical therapy recommending subacute rehab and patient is now agreeable and a social work consult was placed. 05/27/2020 Patient is seen and evaluated this morning with no improvement in respiratory status. Patient remains on Airvo with supplemental nonrebreather. Patient is day 2 of receiving Tocilizumab. Will repeat a.m. chest x-ray along with i nflammatory markers. D-dimer today was 1.60. White blood count has gone up in is 10.8, hemoglobin is 12.6. Patient is afebrile. To continue with dexamethasone, Lovenox, vitamin C and zinc supplements. Pulmonary is following. Had a discussion with the patient about CODE STATUS along with his son Mauricio and currently wish to remain a full code until talking with family member more extensively about the situation. Will continue to monitor closely. Prognosis remains guarded. 05/28/2020 Patient is seen this morning status post getting up to the bathroom and continues to be extremely dyspneic with any exertion and was found to be low 80s to 83% oxygenation. Patient continues on the airvo with a flow rate of 60 and FiO2 of 64 and is currently 91%. Patient denies any chest pain or palpitations. Patient is afebrile. Patient reports to tolerating diet with no nausea or vomiting noted. D-dimer continues to be elevated at 2.56, sodium today is 140 with a potassium of 5.1 and creatinine is 1.2. Blood sugars on the lower side this morning and will continue to monitor closely and treat accordingly with sliding scale. Inflammatory markers trending down. Pulmonary following closely. Chest x-ray today shows continued bibasilar infiltrates which are nonspecific but worsening. 05/29/2020 Patient is seen in follow-up this morning and continues to be on Airvo no significant change. Patient was on dexamethasone all being transitioned to IV Solu-Medrol and will continue with Accu-Cheks and close glycemic control with pre-meal, long-acting, and sliding scale. White blood count is 13.9, hemoglobin is stable at 13.2, d-dimer is 2.95, sodium is 137, potassium is 5.1, creatinine slightly elevated at 1.24. Inflammatory markers have gone up. Patient is sitting up in the chair and denies any chest pain or worsening shortness of breath. Patient states he feels he is about the same. Patient also states he has been sleeping a lot and tolerating diet with no reports of nausea or vomiting. Discussed with patient about increasing activity as tolerated although patient is extremely dyspneic with minimal exertion. 05/30/2020 Patient is seen and evaluated this morning and follow-up with no acute overnight issues. Patient continues to be on Airvo with a flow rate of 60 and FiO2 of 70 and is being closely monitored. Transitioned to IV Solu-Medrol and will continue at this time. Blood sugars elevated and increasing long-acting and pre-meal insulins and will continue sliding scale along with oral antidiabetic agents. Need tighter glycemic control. Patient has been eating 100% of all meals with no reports of nausea or vomiting noted. Patient clinically looking better and chest x-ray displays stable infiltrates. D-dimer slightly trending down along with inflammatory markers. Creatinine is stable at 1.2 and potassium is 5.5. Will continue to monitor vital signs and labs closely. On 05/31/2020 -patient is seen and examined at the bedside. He is sitting up in the chair and is on Airvo 60 L with FiO2 of 70%, saturating about 90%. He still complains of exertional dyspnea and cough at times. Denies having any fevers chills or rigors. He complains of generalized weakness. On reviewing his vitals temperature of 97.9, heart rate 63, respiratory rate 18, blood pressure 120 x 62 . On reviewing his labs white count of 22.9, hemoglobin 13, platelets 299. Sodium 136, potassium 5.6, chloride 104, bicarb 26, BUN 55, creatinine 1.15. Blood sugars running on the higher side around 300s. Patient had a chest x-ray done this morning showing mild to moderate mid and lower zone infiltrates. On 06/01/2020 -patient is seen and examined at bedside. He is sitting up in a chair at fifth high flow oxygen at 60 L FiO2 of 70% and pulse ox at 94%. He is still having exertional dyspnea and complains of generalized weakness. He states that he is tired of using the oxygen. On reviewing the vitals T-max of 97.9, heart rate 60, respiratory 19, blood pressure 130/60. Reviewing the labs LDH 378, CRP less than 0.04 and D-dimer of 1.53. All medications have been reviewed and pertinent changes made. 06/02/2020 Patient is seen and evaluated this morning with no acute overnight issues. Patient continues to sit up in the chair throughout most of the day as he states his breathing is better. Patient continues to be on Airvo and flow rate has been decreased to 40 with an FiO2 of 70% and is currently 92%. Patient continues to have dyspnea with minimal exertion and continues to have weakness and will likely require some form rehab once stabilized and discharged. PT/OT to continue to follow. White blood count trending down at 18.64 and hemoglobin is stable at 13.2. D-dimer is 1.60 with a sodium of 136 and potassium was found to be 6.1 and being corrected and will repeat a.m. labs. Creatinine is 1.2. Blood sugars continue to be elevated and will continue with sliding scale and long-acting and monitor closely. LDH trending back up at 503 and will monitor closely. CRP is 0.4. 06/03/2020 Patient's potassium is still high received the calcium gluconate and insulin as today. Will order capsulate. This is nonhemolyzed sample patient was started on low potassium diet. Patient remains on Airvo , 40 L and 60% FiO2 which is better compared to yesterday and saturating better appears to have been some improvement. Constitutional: Reports fatigue although slightly more awake today, denied any fever. Cardio vascular: denied any chest pain, palpitations Gastrointestinal denied any nausea vomiting Pulmonary: No shortness of breath today Neurologic reports generalized weakness All inpatient medications were reviewed and appropriate changes in these medications as dictated in the interval history and assessment and plan. Objective - Vital Signs Vital signs: Vital Signs Temp 97.9 F 06/03/20 09:00 Pulse 63 06/03/20 09:00 Resp 18 06/03/20 09:00 BP 123/65 06/03/20 09:00 Pulse Ox 88 L 06/03/20 09:46 Intake & Output 06/02/20 06/03/20 06/03/20 18:59 06:59 18:59 Output Total 200 Balance -200 Output: Urine 200 Other: Voiding Method Urinal # Voids 1 2 # Bowel Movements 1 1 - Exam - Exam GENERAL: The patient is alert and oriented x3, not in any acute distress. Obese, currently on airvo at a flow rate of 40 with an FiO2 of 70, continue to wean as tolerated HEENT: Pupils are round and equally reacting to light. EOMI. No scleral icterus. No conjunctival pallor. Normocephalic, atraumatic. No pharyngeal erythema. No thyromegaly. CARDIOVASCULAR: S1 and S2 present. No murmurs, rubs, or gallops. PULMONARY: Diminished breath sounds bilaterally with no wheezing or rhonchi noted ABDOMEN: Soft, nontender, nondistended, normoactive bowel sounds. No palpable organomegaly. MUSCULOSKELETAL: No joint swelling or deformity. EXTREMITIES: No cyanosis, clubbing, or pedal edema. NEUROLOGICAL: Gross neurological examination did not reveal any focal deficits. SKIN: No rashes. - Labs CBC & Chem 7: 06/02/20 06:17 06/03/20 06:14 Labs: Abnormal Lab Results - Last 24 Hours (Table) 06/02/20 06/02/20 06/03/20 Range/Units 16:48 21:07 06:14 Potassium 5.6 H (3.5-5.5) mmol/L BUN 63.0 H (9.0-27.0) mg/dL Est GFR (CKD-EPI)AfAm 59.3 L (60.0-200.0) Est GFR (CKD-EPI)NonAf 51.2 L (60.0-200.0) BUN/Creatinine Ratio 48.46 H (12.00-20.00) Ratio Glucose 228 H (70-110) mg/dL POC Glucose (mg/dL) 311 H 303 H (75-99) mg/dL Total Protein 5.4 L (6.2-8.2) g/dL Albumin 3.00 L (3.80-4.90) g/dL Albumin/Globulin Ratio 1.25 L (1.60-3.17) g/dL 06/03/20 06/03/20 Range/Units 07:17 11:33 Potassium (3.5-5.5) mmol/L BUN (9.0-27.0) mg/dL Est GFR (CKD-EPI)AfAm (60.0-200.0) Est GFR (CKD-EPI)NonAf (60.0-200.0) BUN/Creatinine Ratio (12.00-20.00) Ratio Glucose (70-110) mg/dL POC Glucose (mg/dL) 214 H 237 H (75-99) mg/dL Total Protein (6.2-8.2) g/dL Albumin (3.80-4.90) g/dL Albumin/Globulin Ratio (1.60-3.17) g/dL Assessment and Plan Plan: -acute hypoxic respiratory failure: Secondary to covid 19 pneumonia patient maintained on vitamin and zinc supplements. Patient currently on IV solu-Medrol. has received 2 doses of Tocilizumab and is continued on Lovenox. inflammatory markers ,Patient currently on Airvo. Pulmonary following -Type 2 diabetes mellitus uncontrolled elevated blood sugars secondary to systemic steroids, continue with pre-meal, sliding scale, and long-acting, with adjustments made and will increase pre-male and long-acting doses -Hyperkalemia, improved -Hypotonic hyponatremia, improved -Acute renal failure secondary to Covid 19: Improved, current creatinine is 1.2 -Hypertension -DVT subcutaneous Lovenox -Full code Plan: Continue with current medications. Will continue IV Solu-Medrol with vitamin and zinc supplements, and lovenox . patient has received Tocilizumab x2. Pulmonary following . Patient currently on airvo and slowly weaning as tolerated. PT/OT following and patient may likely require ECF for continued PT/OT therapy due to weakness once stabilized and discharged. Patient response to treatment is slow. Will continue to monitor closely. Prognosis remains guarded.
[2020-06-03 17:00] LABS: Glucose,Whole Blood 271 mg/dL (75-99)
--- NOTE | 2020-06-03 18:09 | P.PN ---
Subjective Progress Note Date: 06/03/20 Principal diagnosis: CoVID 19 pneumonia 80-year-old male, who was brought to the emergency department by EMS. The patient apparently has had 2 weeks' worth of increasing shortness of breath, and significant fatigue. The patient also had chest congestion. He had a fever. The patient states that he is just not been feeling well and getting progressively worse. He also apparently had an episode or 2 of diarrhea. The patient denied any chest pain or chest pressure or palpitations. The patient also denied nausea, vomiting, and abdominal pain. Apparently when EMS arrived, the patient's saturations were in the low 80s on room air. For that reason, he was transported in, evaluated, and admitted with a diagnosis of COVID 19 19 pneumonia. The patient does have a history of diabetes, hypertension, and a previous pacemaker insertion. White count was 4.6, hemoglobin 12.5, hematocrit 37.1, and platelet count 153,000. PT, INR, and PTT were all normal. D-dimer was 0.77. Sodium 136, potassium 4.5, chlorides 102, CO2 26, anion gap 8, BUN 47, and creatinine 1.63. Ferritin was 985, LDH 818, C-reactive protein 58, and pro-calcitonin level was 0.12. Chest x-ray did show some interstitial infiltrates. On 05/22/2020 patient seen in follow-up on medical floor. he is on 2 L of oxygen his pulse ox is 90-94%, breathing comfortably, no fever or chills, blood pressure has been stable. Denies any worsening dyspnea or hypoxemia, he has a mild cough, no chest discomfort. He continues on oral Decadron 6 mg daily, IV hydration, vitamins, d-dimer was low at 0.77, patient is on subcu heparin for DVT prophylaxis, pro-calcitonin level was low, inflammatory markers were not significantly elevated on admission. Clinically symptoms have not progressed, and patient will be considered for discharge in next 24 hours. The patient is seen today 05/23/2020 in follow-up on the regular medical floor. He is currently sitting up in chair at the bedside. Awake and alert in no acute distress. Continue O2 saturations in the low 90s on 2 L/m per nasal cannula. Afebrile. Hemodynamically stable. Blood cultures reveal no growth. Blood glucose 202. Sodium 143. Potassium 5.5. Creatinine 1.19. He remains on dexamethasone, so continues heparin, vitamin supplements. Chest x-ray continues to show bilateral multifocal opacities consistent with CoVID infection. No neri ge. The patient is seen today 05/24/2020 in follow-up on the regular medical floor. He is currently resting comfortably in bed. Awake and alert in no acute distress. He is maintaining O2 saturations in the 90s on 2 L/m per nasal cannula. He's been on dexamethasone, vitamin supplements, subcutaneous heparin. No worsening shortness of breath, cough or congestion. D-dimer 1.02. Sodium 145. Potassium 5.1. Creatinine 1.3. LDH 485. C-reactive protein 4.4. The patient is seen today 05/25/2020 in follow-up on the regular medical floor. He is currently resting quite comfortably in bed. Maintaining O2 saturations in the low 90s on 2 L/m per nasal cannula. Sodium 144. Potassium 4.7. Creatinine 1.2. Glucose 173. He remains on dexamethasone, heparin, vitamin supplements. 05/26/2020 on seeing the patient for a follow-up regarding the patient's acute hypoxic respiratory failure due to Covid 19 related pneumonia. The patient was not a candidate for Remdesivir, Tocilizumab or convalescent plasma, and the patient is currently on Decadron 6 mg on a daily basis and addition to Levemir insulin 50 units daily at bedtime and NovoLog 6 units 3 times a day with meals and a sliding scale coverage. The patient was on 2 L about 2 by nasal cannula with pulse ox of 93%. Earlier this morning, the patient's oxidation progressively got worse in the patient is currently on 100% nonrebreather facemask maintaining a saturation above 90% at around 94%. Overall, the patient is doing well. Creatinine is at 1.2. The patient had a CRP level of 4.4 with an LDH level of 485 from 05/24/2020. Inflammatory markers are being monitored. Last d-dimer from 05/24/2020 was 1.02. Blood cultures were negative repeat chest x-ray was done today and the findings are essentially stable and the pat ient has patchy bilateral perihilar pulmonary infiltrates without any significant interval change. D-dimer from today is at 1.7 and the patient remains on Lovenox. 05/27/2020 the patient is being seen for a follow-up. The patient is currently on high flow oxygen at 6 L. Note that the patient was on 100% nonrebreather facemask and was switched him to a high flow oxygen yesterday at 60 L. As part of his treatment, the patient received steroids and currently is receiving dexamethasone 6 mg by mouth daily. He is also Toci 2 yesterday and today. He completed treatment without any major side effects. Note that the patient was on low-flow oxygen and he progressively got worse requiring 100% nonrebreather and subsequent high flow oxygen. On today's evaluation, his white cell count is at 10. His d-dimer is at 1.6. Rest of the inflammatory markers have not been checked and this will be repeated tomorrow. LDH from yesterday was 491 with a CRP of 9.4. Otherwise, his renal function shows a stable creatinine of 1.2. The patient has been on FiO2 of 60% with a high flow oxygen of 60 L and the patient has been essentially stable since yesterday. No other significant events. Remains on Lovenox 40 mg subcu on a daily basis. 05/28/2020, the patient is still on high flow oxygen and 60 L. He is not utilizing the 100% nonrebreather facemask this morning. Note that the patient has received steroids, and he remains on Decadron 6 mg by mouth daily. He also completed Tocilizumab. On today's evaluation, chest x-ray findings are stable without any interval change in the bilateral pulmonary infiltrates. The patient is resting comfortably in bed. He is also able to move on a recliner. Labs today shows an LDH of 414 and a CRP of 2.9 and the patient is d-dimer is at 2.56. The patient remains on Lovenox 40 mg subcu on a daily basis. He is on Levemir insulin 50 units daily along with NovoLog 6 units with meals plus a sliding coverage. I will say his condition essentially the same as unchanged compared to yesterday. He is not doing much in progress for now. On today's evaluation of 05/29/2020 the patient is being seen for a follow-up. The patient remains on high flow oxygen with a flow of 6 L an FiO2 of 60%. His current pulse ox is around 88%. He is afebrile. He is doing well. Sitting up on a chair. No signs of any respiratory distress. His breathing is nonlabored and he doesn't have any significant cough unless he takes a deep inspiration. The patient had follow-up blood work today. His LDL level is up 1221 and a CRP level is up to 12.6 and his d-dimer currently is at 2.95. I cannot explain the rise in these inflammatory markers. His creatinine is at 1.2. Was a causative 13.7 with a hemoglobin of 13.2. His chest x-ray from yesterday was showing right basilar infiltrates which are nonspecific and it was mentioned that he was getting worse. The patient remains on Decadron 6 mg by mouth daily. He remains on 50 units of Levemir insulin along with 6 units of NovoLog [id number]. He remains on aspirin. He remains on Lovenox for DVT prophylaxis 40 mg subcu. 05/30/2020 the patient is on high flow oxygen at 60 L with an FiO2 of 70%. His pulse ox was around 93%. He feels well. No altered mentation. Resting comfortably. Sitting up and he has no significant shortness of breath at rest. His chest x-ray still showing diffuse bilateral pulmonary infiltrates, peripheral distribution, probably slightly worse compared to yesterday. However, the radiologist reports is stating that the findings are essentially stable. Clinically he is also stable. The labs from today shows a sugar of 407 is quite high and a d-dimer is down to 1.89 and the patient's LDH level is down to 419 with a CRP level of 0.7. The patient remains on Levemir insulin and is currently taking 50 units along with 6 units with meals of NovoLog. 05/31/2020 the patient remains on high flow at 60 L with an FiO2 of 70% which is essentially the same as yesterday. His pulse ox currently is around 93%. His chest x-ray from today is showing diffuse bilateral pulmonary infiltrates, peripheral distribution, I thought his chest x-ray and probably the x-ray findings are improved compared to yesterday's chest x-ray. I have the patient on Solu-Medrol 60 mg every 6 hours. He is also on anticoagulation. He is receiving Lovenox.. His d-dimer is at 1.57 on today's evaluation. His LDH level is high today at 1059 with a CRP of less than 5. He remains on Levemir insulin 50 units along with 6 units of NovoLog with meals and his blood sugars under adequate control for now. He has no other complaints otherwise. Note that initially the patient was started on Decadron and during the course of his treatment he was given Toci 06/01/2020, the patient is on high flow oxygen at 60 L along with an FiO2 of 70%. Pulse ox is in order of 96%. I'm hoping to get down the FiO2 further today. The patient is on IV Solu-Medrol. He is on long-term anticoagulation. He is receiving Lovenox at a dose of 40 mg subcu on a daily basis. In terms of inflammatory markers and blood work, the patient's CRP is less than 0.4 and the LDH level is at 378. The chest x-ray was done yesterday showed some lower lobe active pulmonary infiltrates, findings are unchanged. The patient is awake and alert and following commands and answering questions. He is on Levemir insulin as a dose of 60 daily at bedtime and he is also on NovoLog 10 units with meals and a sliding scale coverage. He has completed tocilizumab The patient is seen today 06/02/2020 in follow-up on the regular medical floor. He is currently sitting up in a chair at the bedside. Awake and alert in no acute distress. He remains on AirVo high flow oxygen at 40 L and 70% FiO2. He is afebrile. White count 18.6. Hemoglobin 13.2. D-dimer 1.6. Sodium 136. Potassium 6.1. Creatinine 1.2. LDH 503. C-reactive protein less than 0.4. Remains on Lovenox, IV Soluj Medrol, vitamin supplements. The patient is seen today 06/03/2020 in follow-up on the regular medical floor. Currently sitting up in a chair at the bedside. Awake and alert in no acute distress. He remains on AirVo high flow oxygen at 40 L and 60% FiO2 to maintain O2 saturations at 88%. Sodium 137. Potassium 5.6. Creatinine 1.3. Glucose 271. Remains on IV Solu-Medrol, Lovenox, vitamin supplements. Levemir and NovoLog sliding scale. Objective - Vital Signs Vital signs: Vital Signs Temp 97.6 F 06/03/20 13:44 Pulse 60 06/03/20 13:44 Resp 18 06/03/20 13:44 BP 127/65 06/03/20 13:44 Pulse Ox 92 L 06/03/20 16:46 Intake & Output 06/02/20 06/03/20 06/03/20 18:59 06:59 18:59 Output Total 200 Balance -200 Output: Urine 200 Other: Voiding Method Urinal # Voids 1 2 # Bowel Movements 1 1 - Exam GENERAL EXAM: Alert, pleasant, 80-year-old male patient, on AirVo high flow oxygen at 40 L and 60% FiO2 comfortable in no apparent distress. HEAD: Normocephalic/atraumatic. EYES: Normal reaction of pupils, equal size. Conjunctiva pink, sclera white. NOSE: Clear with pink turbinates. THROAT: No erythema or exudates. NECK: No masses, no JVD, no thyroid enlargement, no adenopathy. CHEST: No chest wall deformity. Symmetrical expansion. LUNGS: Equal air entry with bibasilar coarse crackles CVS: Regular rate and rhythm, normal S1 and S2, no gallops, no murmurs, no rubs ABDOMEN: Soft, nontender. No hepatosplenomegaly, normal bowel sounds, no guarding or rigidity. EXTREMITIES: No clubbing, no edema, no cyanosis, 2+ pulses and upper and lower extremities. MUSCULOSKELETAL: Muscle strength and tone normal. SPINE: No scoliosis or deformity SKIN: No rashes CENTRAL NERVOUS SYSTEM: No focal deficits, tone is normal in all 4 extremities. PSYCHIATRIC: Alert and oriented -3. Appropriate affect. Intact judgment and insight. - Labs CBC & Chem 7: 06/02/20 06:17 06/03/20 06:14 Labs: Abnormal Lab Results - Last 24 Hours (Table) 06/02/20 06/03/20 06/03/20 Range/Units 21:07 06:14 07:17 Potassium 5.6 H (3.5-5.5) mmol/L BUN 63.0 H (9.0-27.0) mg/dL Est GFR (CKD-EPI)AfAm 59.3 L (60.0-200.0) Est GFR (CKD-EPI)NonAf 51.2 L (60.0-200.0) BUN/Creatinine Ratio 48.46 H (12.00-20.00) Ratio Glucose 228 H (70-110) mg/dL POC Glucose (mg/dL) 303 H 214 H (75-99) mg/dL Total Protein 5.4 L (6.2-8.2) g/dL Albumin 3.00 L (3.80-4.90) g/dL Albumin/Globulin Ratio 1.25 L (1.60-3.17) g/dL 06/03/20 06/03/20 Range/Units 11:33 16:57 Potassium (3.5-5.5) mmol/L BUN (9.0-27.0) mg/dL Est GFR (CKD-EPI)AfAm (60.0-200.0) Est GFR (CKD-EPI)NonAf (60.0-200.0) BUN/Creatinine Ratio (12.00-20.00) Ratio Glucose (70-110) mg/dL POC Glucose (mg/dL) 237 H 271 H (75-99) mg/dL Total Protein (6.2-8.2) g/dL Albumin (3.80-4.90) g/dL Albumin/Globulin Ratio (1.60-3.17) g/dL Assessment and Plan Assessment: 1 Acute hypoxic respiratory failure secondary to CoVID 19 pneumonia, he did receive Tocilizumab 2 History of diabetes mellitus type 2 3 History of hypertension 4 History of chronic sinus disease 5 History of diverticulitis, status post bowel resection 6 Hyperkalemia Plan: The patient was seen and evaluated by Dr. Sidhu Continue current treatment plan Titrate the FiO2 as tolerated Follow-up chest x-ray in the a.m. We will continue to follow I, the cosigning physician, performed a history & physical examination of the patient. Lungs sounds crackles in the bilateral posterior bases. Maintaining good O2 saturations in the 90s on AirVo high flow oxygen at 40 L and 60% FiO2. I discussed the assessment and plan of care with my nurse practitioner, Krupa Alarcon. I attest to the above note as dictated by her.
[2020-06-03 20:31] LABS: Glucose,Whole Blood 253 mg/dL (75-99)
[2020-06-03] MEDS: INSULIN DETEMIR (LEVEMIR) 100 UNIT/ML SYR SQ SCH (20:43)
[2020-06-04 07:11] LABS: Glucose,Whole Blood 120 mg/dL (75-99)
[2020-06-04] MEDS: INSULIN ASPART (NovoLOG) 100 UNIT/ML VIAL SQ SCH ×7 (07:59→20:39)
[2020-06-04] MEDS: METOPROLOL SUCCINATE (ER) 50 MG TAB.ER.24H PO SCH (08:05)
[2020-06-04] MEDS: FAMOTIDINE 20 MG TAB PO SCH (08:05)
[2020-06-04] MEDS: ASPIRIN 81 MG PO SCH (08:05)
[2020-06-04] MEDS: methylPREDNISolone SOD SUCCI 125 MG/2 ML VIAL IV SCH ×2 (08:06→17:06)
[2020-06-04] MEDS: CLOPIDOGREL 75 MG TAB PO SCH (08:06)
[2020-06-04] MEDS: ATORVASTATIN 80 MG TAB PO SCH (08:06)
[2020-06-04] MEDS: ZINC SULFATE 220 MG CAP PO SCH (08:06)
[2020-06-04] MEDS: ASCORBIC ACID 500 MG TAB PO SCH (08:06)
[2020-06-04] MEDS: ENOXAPARIN 40 MG/0.4 ML SYRINGE SQ SCH (08:06)
[2020-06-04] MEDS: glipiZIDE 10 MG TAB PO SCH ×2 (08:06→20:39)
[2020-06-04] MEDS: PIOGLITAZONE 30 MG TAB PO SCH (08:08)
--- NOTE | 2020-06-04 08:55 | XR ---
EXAMINATION TYPE: XR chest 1V portable DATE OF EXAM: 06/04/2020 COMPARISON: 05/31/2020 INDICATION: Atypical pneumonia TECHNIQUE: Single frontal view of the chest is obtained. FINDINGS: The heart size is normal. The pulmonary vasculature is prominent. Patchy bilateral infiltrates are present. Findings are nonspecific and can be compatible with atypica l pneumonia. A pacemaker overlies left chest. IMPRESSION: 1. Patchy bilateral infiltrates similar to prior exam can be compatible with atypical pneumonia.
[2020-06-04 09:45] LABS: African American GFR (CKD) 59.3 (60.0-200.0); Anion Gap 5.1 mmol/L (4.00-12.00); BUN/Creat Ratio 43.08 Ratio (12.00-20.00); Calcium 8.5 mg/dL (8.7-10.3); Carbon Dioxide 23.9 mmol/L (21.6-31.8); Non-African American GFR(CKD) 51.2 (60.0-200.0); Potassium 5.2 mmol/L (3.5-5.5)
[2020-06-04 11:58] LABS: Glucose,Whole Blood 252 mg/dL (75-99)
[2020-06-04 16:42] LABS: Glucose,Whole Blood 220 mg/dL (75-99)
--- NOTE | 2020-06-04 17:43 | P.PN ---
Subjective Progress Note Date: 06/04/20 80-year-old male who presents emergency Department stating that he has had shortness of breath and feeling fatigued for at least 2 weeks. Patient states he has had exposure to COVID . Patient states he has had a fever. Patient states she's also states and smile. Patient also states she's had diarrhea. Patient denies any chest pain or palpitations. Patient denies any abdominal pain patient denies nausea vomiting diarrhea. According to EMS with the patient was coming in he was satting in the low 80s. Patient is currently on a few liters of oxygen and sat in mid 90s. Patient is a diabetic and has high blood pressure. Patient also has a pacemaker. Patient is presently on 2 L of oxygen was requiring 4 L yesterday. Patient was started on IV fluids patient creatinine went up to 1.6 baseline is around 1. Patient's blood sugars are highly elevated. Patient tests positive for Covid. 05/22/2020 Patient is presently on 2 L of oxygen appears to be doing better possibility of discharge tomorrow. Creatinine went up a bit to 1.6 baseline is around the 1. Patient was started on IV fluids will recheck the basic metabolic profile tomorrow. 05/23/2020 Patient seen and evaluated in follow-up continues to be on 2 L of oxygen and becomes dyspneic with exertion. Patient states he does not know wear oxygen at home. Pulmonary is following. Patient's blood sugars are elevated and will continue sliding scale at this time as patient is on steroids. Potassium was found to be slightly elevated at 5.5 and was given a dose of Kayexalate. Will repeat a.m. labs. Instructed and encouraged the patient to get up and increase activity as tolerated. 05/24/2020 Patient is presently in 2 does of hours and doing clinically well. Patient is on dexamethasone, vitamin supplements, subcutaneous heparin. No worsening shortness of breath, cough or congestion. D-dimer 1.02. Sodium 145. Potassium 5.1. Creatinine 1.3. LDH 485. C-reactive protein 4.4. His creatinine actually went up a little bit from 1.19-1.3 05/25/2020 Patient is fairly stable no significant improvement or worsening. Patient is still on 2 L of oxygen. We'll monitor him 1 more night. Continues to require oxygen patient probably can be discharged on 2 L tomorrow this can be tapered or discontinued as an outpatient. Patient d-dimer is bit worse compared to admission. Although other inflammatory markers are better 05/26/2020 Patient is seen this morning currently on nonrebreather and airvo as his oxygen was found to be 89% on 6 L of oxygen. Pulmonary is following. D-dimer has gone up at 1.70 along with lactate dehydrogenase at 491 and CRP is 9.4. Blood sugars continue to be elevated and patient is maintained on sliding scale along with long-acting and pre-meal insulin and will continue at this time. Patient continues on vitamin and zinc supplements along with Lovenox and dexamethasone daily. Patient is scheduled to receive Tocilizumab today. Will continue to monitor closely based on the clinical course of the patient. Patient continues to be weak and was seen and evaluated by physical therapy recommending subacute rehab and patient is now agreeable and a social work consult was placed. 05/27/2020 Patient is seen and evaluated this morning with no improvement in respiratory status. Patient remains on Airvo with supplemental nonrebreather. Patient is day 2 of receiving Tocilizumab. Will repeat a.m. chest x-ray along with inflammatory markers. D-dimer today was 1.60. White blood count has gone up in is 10.8, hemoglobin is 12.6. Patient is afebrile. To continue with dexametha sone, Lovenox, vitamin C and zinc supplements. Pulmonary is following. Had a discussion with the patient about CODE STATUS along with his son Mauricio and currently wish to remain a full code until talking with family member more extensively about the situation. Will continue to monitor closely. Prognosis remains guarded. 05/28/2020 Patient is seen this morning status post getting up to the bathroom and continues to be extremely dyspneic with any exertion and was found to be low 80s to 83% oxygenation. Patient continues on the airvo with a flow rate of 60 and FiO2 of 64 and is currently 91%. Patient denies any chest pain or palpitations. Patient is afebrile. Patient reports to tolerating diet with no nausea or vomiting noted. D-dimer continues to be elevated at 2.56, sodium today is 140 with a potassium of 5.1 and creatinine is 1.2. Blood sugars on the lower side this morning and will continue to monitor closely and treat accordingly with sliding scale. Inflammatory markers trending down. Pulmonary following closely. Chest x-ray today shows continued bibasilar infiltrates which are nonspecific but worsening. 05/29/2020 Patient is seen in follow-up this morning and continues to be on Airvo no significant change. Patient was on dexamethasone all being transitioned to IV Solu-Medrol and will continue with Accu-Cheks and close glycemic control with pre-meal, long-acting, and sliding scale. White blood count is 13.9, hemoglobin is stable at 13.2, d-dimer is 2.95, sodium is 137, potassium is 5.1, creatinine slightly elevated at 1.24. Inflammatory markers have gone up. Patient is sitting up in the chair and denies any chest pain or worsening shortness of breath. Patient states he feels he is about the same. Patient also states he has been sleeping a lot and tolerating diet with no reports of nausea or vomiting. Discussed with patient about increasing activity as tolerated although patient is extremely dyspneic with minimal exertion. 05/30/2020 Patient is seen and evaluated this morning and follow-up with no acute overnight issues. Patient continues to be on Airvo with a flow rate of 60 and FiO2 of 70 and is being closely monitored. Transitioned to IV Solu-Medrol and will continue at this time. Blood sugars elevated and increasing long-acting and pre-meal insulins and will continue sliding scale along with oral antidiabetic agents. Need tighter glycemic control. Patient has been eating 100% of all meals with no reports of nausea or vomiting noted. Patient clinically looking better and chest x-ray displays stable infiltrates. D-dimer slightly trending down along with inflammatory markers. Creatinine is stable at 1.2 and potassium is 5.5. Will continue to monitor vital signs and labs closely. On 05/31/2020 -patient is seen and examined at the bedside. He is sitting up in the chair and is on Airvo 60 L with FiO2 of 70%, saturating about 90%. He still complains of exertional dyspnea and cough at times. Denies having any fevers chills or rigors. He complains of generalized weakness. On reviewing his vitals temperature of 97.9, heart rate 63, respiratory rate 18, blood pressure 120 x 62 . On reviewing his labs white count of 22.9, hemoglobin 13, platelets 299. Sodium 136, potassium 5.6, chloride 104, bicarb 26, BUN 55, creatinine 1.15. Blood sugars running on the higher side around 300s. Patient had a chest x-ray done this morning showing mild to moderate mid and lower zone infiltrates. On 06/01/2020 -patient is seen and examined at bedside. He is sitting up in a chair at fifth high flow oxygen at 60 L FiO2 of 70% and pulse ox at 94%. He is still having exertional dyspnea and complains of generalized weakness. He states that he is tired of using the oxygen. On reviewing the vitals T-max of 97.9, heart rate 60, respiratory 19, blood pressure 130/60. Reviewing the labs LDH 378, CRP less than 0.04 and D-dimer of 1.53. All medications have been reviewed and pertinent changes made. 06/02/2020 Patient is seen and evaluated this morning with no acute overnight issues. Patient continues to sit up in the chair throughout most of the day as he states his breathing is better. Patient continues to be on Airvo and flow rate has been decreased to 40 with an FiO2 of 70% and is currently 92%. Patient con tinues to have dyspnea with minimal exertion and continues to have weakness and will likely require some form rehab once stabilized and discharged. PT/OT to continue to follow. White blood count trending down at 18.64 and hemoglobin is stable at 13.2. D-dimer is 1.60 with a sodium of 136 and potassium was found to be 6.1 and being corrected and will repeat a.m. labs. Creatinine is 1.2. Blood sugars continue to be elevated and will continue with sliding scale and long- acting and monitor closely. LDH trending back up at 503 and will monitor closely. CRP is 0.4. 06/03/2020 Patient's potassium is still high received the calcium gluconate and insulin as today. Will order capsulate. This is nonhemolyzed sample patient was started on low potassium diet. Patient remains on Airvo , 40 L and 60% FiO2 which is better compared to yesterday and saturating better appears to have been some improvement. 06/04/2020 Patient is seen and evaluated this morning continues to be sitting up in the chair. Patient states he feels his breathing is improved but "I'm still here in the hospital". Patient has continued weakness and has been working with PT/OT therapy. Patient does require assistance to the bedside commode and will have PT/OT therapy reevaluate with the possibility of ECF once stabilized and discharged. Sodium today is 138 with a potassium of 5.2 and current creatinine is 1.3. Blood sugars being closely monitored and will continue with current medication regimen. Respiratory slowly weaning Airvo settings and is maintained on a flow rate of 35 with an FiO2 of 65%. Pulmonary is following. Constitutional: No reports of fatigue, denied any fever. Cardio vascular: denied any chest pain, palpitations Gastrointestinal denied any nausea vomiting Pulmonary: Reports continued shortness of breath but feels has improved slightly Neurologic reports generalized weakness All inpatient medications were reviewed and appropriate changes in these medications as dictated in the interval history and assessment and plan. Objective - Vital Signs Vital signs: Vital Signs Temp 97.6 F 06/04/20 10:11 Pulse 65 06/04/20 10:11 Resp 16 06/04/20 10:11 BP 125/56 06/04/20 10:11 Pulse Ox 88 L 06/04/20 10:11 Intake & Output 06/03/20 06/04/20 06/04/20 18:59 06:59 18:59 Output Total 900 Balance -900 Output: Urine 900 Other: Voiding Method Bedside Commode Bedside Commode Urinal Urinal # Voids 2 - Exam GENERAL: The patient is alert and oriented x3, not in any acute distress. Obese, currently on airvo at a flow rate of 35 with an FiO2 of 65, continue to wean as tolerated HEENT: Pupils are round and equally reacting to light. EOMI. No scleral icterus. No conjunctival pallor. Normocephalic, atraumatic. No pharyngeal erythema. No thyromegaly. CARDIOVASCULAR: S1 and S2 present. No murmurs, rubs, or gallops. PULMONARY: Diminished breath sounds bilaterally with no wheezing or rhonchi noted ABDOMEN: Soft, nontender, nondistended, normoactive bowel sounds. No palpable organomegaly. MUSCULOSKELETAL: No joint swelling or deformity. EXTREMITIES: No cyanosis, clubbing, or pedal edema. NEUROLOGICAL: Gross neurological examination did not reveal any focal deficits. Diffuse weakness SKIN: No rashes. - Labs CBC & Chem 7: 06/02/20 06:17 06/04/20 06:06 Labs: Abnormal Lab Results - Last 24 Hours (Table) 06/03/20 06/03/20 06/04/20 Range/Units 16:57 20:29 06:06 BUN 56.0 H (9.0-27.0) mg/dL Est GFR (CKD-EPI)AfAm 59.3 L (60.0-200.0) Est GFR (CKD-EPI)NonAf 51.2 L (60.0-200.0) BUN/Creatinine Ratio 43.08 H (12.00-20.00) Ratio Glucose 119 H (70-110) mg/dL POC Glucose (mg/dL) 271 H 253 H (75-99) mg/dL Calcium 8.5 L (8.7-10.3) mg/dL 06/04/20 06/04/20 Range/Units 07:01 11:55 BUN (9.0-27.0) mg/dL Est GFR (CKD-EPI)AfAm (60.0-200.0) Est GFR (CKD-EPI)NonAf (60.0-200.0) BUN/Creatinine Ratio (12.00-20.00) Ratio Glucose (70-110) mg/dL POC Glucose (mg/dL) 120 H 252 H (75-99) mg/dL Calcium (8.7-10.3) mg/dL Assessment and Plan Assessment: -acute hypoxic respiratory failure: Secondary to covid 19 pneumonia patient maintained on vitamin and zinc supplements. Patient currently on IV solu- Medrol. has received 2 doses of Tocilizumab and is continued on Lovenox. inflammatory markers ,Patient currently on Airvo. Pulmonary following -Type 2 diabetes mellitus uncontrolled elevated blood sugars secondary to systemic steroids, continue with pre-meal, sliding scale, and long-acting, with adjustments made and will increase pre-male and long-acting doses -Hyperkalemia, improved continue with low potassium diet -Hypotonic hyponatremia, improved -Acute renal failure secondary to Covid 19: Improved, current creatinine is 1.3 -Hypertension -DVT subcutaneous Lovenox -Full code Plan: Continue with current medications. Will continue IV Solu-Medrol with vitamin and zinc supplements, and lovenox . patient has received Tocilizumab x2. Pulmonary following . Patient currently on airvo and slowly weaning as tolerated. Current settings are flow rate of 35 and FiO2 of 65%. Continue with low potassium diet and will repeat a.m. labs potassium within normal limits today. PT/OT following and patient may likely require ECF for continued PT/OT therapy due to weakness once stabilized and discharged. Patient response to treatment is slow. Will continue to monitor closely. Prognosis remains guarded.
--- NOTE | 2020-06-04 19:04 | P.PN ---
Subjective Progress Note Date: 06/04/20 Principal diagnosis: CoVID 19 pneumonia 80-year-old male, who was brought to the emergency department by EMS. The patient apparently has had 2 weeks' worth of increasing shortness of breath, and significant fatigue. The patient also had chest congestion. He had a fever. The patient states that he is just not been feeling well and getting progressively worse. He also apparently had an episode or 2 of diarrhea. The patient denied any chest pain or chest pressure or palpitations. The patient also denied nausea, vomiting, and abdominal pain. Apparently when EMS arrived, the patient's saturations were in the low 80s on room air. For that reason, he was transported in, evaluated, and admitted with a diagnosis of COVID 19 19 pneumonia. The patient does have a history of diabetes, hypertension, and a previous pacemaker insertion. White count was 4.6, hemoglobin 12.5, hematocrit 37.1, and platelet count 153,000. PT, INR, and PTT were all normal. D-dimer was 0.77. Sodium 136, potassium 4.5, chlorides 102, CO2 26, anion gap 8, BUN 47, and creatinine 1.63. Ferritin was 985, LDH 818, C-reactive protein 58, and pro-calcitonin level was 0.12. Chest x-ray did show some interstitial infiltrates. On 05/22/2020 patient seen in follow-up on medical floor. he is on 2 L of oxygen his pulse ox is 90-94%, breathing comfortably, no fever or chills, blood pressure has been stable. Denies any worsening dyspnea or hypoxemia, he has a mild cough, no chest discomfort. He continues on oral Decadron 6 mg daily, IV hydration, vitamins, d-dimer was low at 0.77, patient is on subcu heparin for DVT prophylaxis, pro-calcitonin level was low, inflammatory markers were not significantly elevated on admission. Clinically symptoms have not progressed, and patient will be considered for discharge in next 24 hours. The patient is seen today 05/23/2020 in follow-up on the regular medical floor. He is currently sitting up in chair at the bedside. Awake and alert in no acute distress. Continue O2 saturations in the low 90s on 2 L/m per nasal cannula. Afebrile. Hemodynamically stable. Blood cultures reveal no growth. Blood glucose 202. Sodium 143. Potassium 5.5. Creatinine 1.19. He remains on dexamethasone, so continues heparin, vitamin supplements. Chest x-ray continues to show bilateral multifocal opacities consistent with CoVID infection. No neri ge. The patient is seen today 05/24/2020 in follow-up on the regular medical floor. He is currently resting comfortably in bed. Awake and alert in no acute distress. He is maintaining O2 saturations in the 90s on 2 L/m per nasal cannula. He's been on dexamethasone, vitamin supplements, subcutaneous heparin. No worsening shortness of breath, cough or congestion. D-dimer 1.02. Sodium 145. Potassium 5.1. Creatinine 1.3. LDH 485. C-reactive protein 4.4. The patient is seen today 05/25/2020 in follow-up on the regular medical floor. He is currently resting quite comfortably in bed. Maintaining O2 saturations in the low 90s on 2 L/m per nasal cannula. Sodium 144. Potassium 4.7. Creatinine 1.2. Glucose 173. He remains on dexamethasone, heparin, vitamin supplements. 05/26/2020 on seeing the patient for a follow-up regarding the patient's acute hypoxic respiratory failure due to Covid 19 related pneumonia. The patient was not a candidate for Remdesivir, Tocilizumab or convalescent plasma, and the patient is currently on Decadron 6 mg on a daily basis and addition to Levemir insulin 50 units daily at bedtime and NovoLog 6 units 3 times a day with meals and a sliding scale coverage. The patient was on 2 L about 2 by nasal cannula with pulse ox of 93%. Earlier this morning, the patient's oxidation progressively got worse in the patient is currently on 100% nonrebreather facemask maintaining a saturation above 90% at around 94%. Overall, the patient is doing well. Creatinine is at 1.2. The patient had a CRP level of 4.4 with an LDH level of 485 from 05/24/2020. Inflammatory markers are being monitored. Last d-dimer from 05/24/2020 was 1.02. Blood cultures were negative repeat chest x-ray was done today and the findings are essentially stable and the pat ient has patchy bilateral perihilar pulmonary infiltrates without any significant interval change. D-dimer from today is at 1.7 and the patient remains on Lovenox. 05/27/2020 the patient is being seen for a follow-up. The patient is currently on high flow oxygen at 6 L. Note that the patient was on 100% nonrebreather facemask and was switched him to a high flow oxygen yesterday at 60 L. As part of his treatment, the patient received steroids and currently is receiving dexamethasone 6 mg by mouth daily. He is also Toci 2 yesterday and today. He completed treatment without any major side effects. Note that the patient was on low-flow oxygen and he progressively got worse requiring 100% nonrebreather and subsequent high flow oxygen. On today's evaluation, his white cell count is at 10. His d-dimer is at 1.6. Rest of the inflammatory markers have not been checked and this will be repeated tomorrow. LDH from yesterday was 491 with a CRP of 9.4. Otherwise, his renal function shows a stable creatinine of 1.2. The patient has been on FiO2 of 60% with a high flow oxygen of 60 L and the patient has been essentially stable since yesterday. No other significant events. Remains on Lovenox 40 mg subcu on a daily basis. 05/28/2020, the patient is still on high flow oxygen and 60 L. He is not utilizing the 100% nonrebreather facemask this morning. Note that the patient has received steroids, and he remains on Decadron 6 mg by mouth daily. He also completed Tocilizumab. On today's evaluation, chest x-ray findings are stable without any interval change in the bilateral pulmonary infiltrates. The patient is resting comfortably in bed. He is also able to move on a recliner. Labs today shows an LDH of 414 and a CRP of 2.9 and the patient is d-dimer is at 2.56. The patient remains on Lovenox 40 mg subcu on a daily basis. He is on Levemir insulin 50 units daily along with NovoLog 6 units with meals plus a sliding coverage. I will say his condition essentially the same as unchanged compared to yesterday. He is not doing much in progress for now. On today's evaluation of 05/29/2020 the patient is being seen for a follow-up. The patient remains on high flow oxygen with a flow of 6 L an FiO2 of 60%. His current pulse ox is around 88%. He is afebrile. He is doing well. Sitting up on a chair. No signs of any respiratory distress. His breathing is nonlabored and he doesn't have any significant cough unless he takes a deep inspiration. The patient had follow-up blood work today. His LDL level is up 1221 and a CRP level is up to 12.6 and his d-dimer currently is at 2.95. I cannot explain the rise in these inflammatory markers. His creatinine is at 1.2. Was a causative 13.7 with a hemoglobin of 13.2. His chest x-ray from yesterday was showing right basilar infiltrates which are nonspecific and it was mentioned that he was getting worse. The patient remains on Decadron 6 mg by mouth daily. He remains on 50 units of Levemir insulin along with 6 units of NovoLog [id number]. He remains on aspirin. He remains on Lovenox for DVT prophylaxis 40 mg subcu. 05/30/2020 the patient is on high flow oxygen at 60 L with an FiO2 of 70%. His pulse ox was around 93%. He feels well. No altered mentation. Resting comfortably. Sitting up and he has no significant shortness of breath at rest. His chest x-ray still showing diffuse bilateral pulmonary infiltrates, peripheral distribution, probably slightly worse compared to yesterday. However, the radiologist reports is stating that the findings are essentially stable. Clinically he is also stable. The labs from today shows a sugar of 407 is quite high and a d-dimer is down to 1.89 and the patient's LDH level is down to 419 with a CRP level of 0.7. The patient remains on Levemir insulin and is currently taking 50 units along with 6 units with meals of NovoLog. 05/31/2020 the patient remains on high flow at 60 L with an FiO2 of 70% which is essentially the same as yesterday. His pulse ox currently is around 93%. His chest x-ray from today is showing diffuse bilateral pulmonary infiltrates, peripheral distribution, I thought his chest x-ray and probably the x-ray findings are improved compared to yesterday's chest x-ray. I have the patient on Solu-Medrol 60 mg every 6 hours. He is also on anticoagulation. He is receiving Lovenox.. His d-dimer is at 1.57 on today's evaluation. His LDH level is high today at 1059 with a CRP of less than 5. He remains on Levemir insulin 50 units along with 6 units of NovoLog with meals and his blood sugars under adequate control for now. He has no other complaints otherwise. Note that initially the patient was started on Decadron and during the course of his treatment he was given Toci 06/01/2020, the patient is on high flow oxygen at 60 L along with an FiO2 of 70%. Pulse ox is in order of 96%. I'm hoping to get down the FiO2 further today. The patient is on IV Solu-Medrol. He is on long-term anticoagulation. He is receiving Lovenox at a dose of 40 mg subcu on a daily basis. In terms of inflammatory markers and blood work, the patient's CRP is less than 0.4 and the LDH level is at 378. The chest x-ray was done yesterday showed some lower lobe active pulmonary infiltrates, findings are unchanged. The patient is awake and alert and following commands and answering questions. He is on Levemir insulin as a dose of 60 daily at bedtime and he is also on NovoLog 10 units with meals and a sliding scale coverage. He has completed tocilizumab The patient is seen today 06/02/2020 in follow-up on the regular medical floor. He is currently sitting up in a chair at the bedside. Awake and alert in no acute distress. He remains on AirVo high flow oxygen at 40 L and 70% FiO2. He is afebrile. White count 18.6. Hemoglobin 13.2. D-dimer 1.6. Sodium 136. Potassium 6.1. Creatinine 1.2. LDH 503. C-reactive protein less than 0.4. Remains on Lovenox, IV Soluj Medrol, vitamin supplements. The patient is seen today 06/03/2020 in follow-up on the regular medical floor. Currently sitting up in a chair at the bedside. Awake and alert in no acute distress. He remains on AirVo high flow oxygen at 40 L and 60% FiO2 to maintain O2 saturations at 88%. Sodium 137. Potassium 5.6. Creatinine 1.3. Glucose 271. Remains on IV Solu-Medrol, Lovenox, vitamin supplements. Levemir and NovoLog sliding scale. Patient is seen today 06/04/2020 in follow-up on the regular medical floor. He is currently sitting up in a chair at the bedside. Awake, alert in no acute distress. Feeling a bit better today compared to yesterday. He is still on AirVo high flow oxygen at 35 L and 65% FiO2 and maintaining O2 saturations at 94%. He remains on IV Solu-Medrol, Lovenox, vitamin supplements. Chest x-ray continues to show patchy bilateral infiltrates similar to previous. Objective - Vital Signs Vital signs: Vital Signs Temp 98.0 F 06/04/20 18:00 Pulse 60 06/04/20 18:00 Resp 16 06/04/20 18:00 BP 114/62 06/04/20 18:00 Pulse Ox 91 L 06/04/20 18:00 Intake & Output 06/04/20 06/04/20 06/05/20 06:59 18:59 06:59 Output Total 900 2 Balance -900 -2 Output: Urine 900 1 Stool 1 Other: Voiding Method Bedside Commode Bedside Commode Urinal Urinal - Exam GENERAL EXAM: Alert, pleasant, 80-year-old male patient, on AirVo high flow oxyg en at 35 L and 65% FiO2 comfortable in no apparent distress. HEAD: Normocephalic/atraumatic. EYES: Normal reaction of pupils, equal size. Conjunctiva pink, sclera white. NOSE: Clear with pink turbinates. THROAT: No erythema or exudates. NECK: No masses, no JVD, no thyroid enlargement, no adenopathy. CHEST: No chest wall deformity. Symmetrical expansion. LUNGS: Equal air entry with bibasilar coarse crackles CVS: Regular rate and rhythm, normal S1 and S2, no gallops, no murmurs, no rubs ABDOMEN: Soft, nontender. No hepatosplenomegaly, normal bowel sounds, no guarding or rigidity. EXTREMITIES: No clubbing, no edema, no cyanosis, 2+ pulses and upper and lower extremities. MUSCULOSKELETAL: Muscle strength and tone normal. SPINE: No scoliosis or deformity SKIN: No rashes CENTRAL NERVOUS SYSTEM: No focal deficits, tone is normal in all 4 extremities. PSYCHIATRIC: Alert and oriented -3. Appropriate affect. Intact judgment and insight. - Labs CBC & Chem 7: 06/02/20 06:17 06/04/20 06:06 Labs: Abnormal Lab Results - Last 24 Hours (Table) 06/03/20 06/04/20 06/04/20 Range/Units 20:29 06:06 07:01 BUN 56.0 H (9.0-27.0) mg/dL Est GFR (CKD-EPI)AfAm 59.3 L (60.0-200.0) Est GFR (CKD-EPI)NonAf 51.2 L (60.0-200.0) BUN/Creatinine Ratio 43.08 H (12.00-20.00) Ratio Glucose 119 H (70-110) mg/dL POC Glucose (mg/dL) 253 H 120 H (75-99) mg/dL Calcium 8.5 L (8.7-10.3) mg/dL 06/04/20 06/04/20 Range/Units 11:55 16:39 BUN (9.0-27.0) mg/dL Est GFR (CKD-EPI)AfAm (60.0-200.0) Est GFR (CKD-EPI)NonAf (60.0-200.0) BUN/Creatinine Ratio (12.00-20.00) Ratio Glucose (70-110) mg/dL POC Glucose (mg/dL) 252 H 220 H (75-99) mg/dL Calcium (8.7-10.3) mg/dL Assessment and Plan Assessment: 1 Acute hypoxic respiratory failure secondary to CoVID 19 pneumonia, he did receive Tocilizumab 2 History of diabetes mellitus type 2 3 History of hypertension 4 History of chronic sinus disease 5 History of diverticulitis, status post bowel resection 6 Hyperkalemia Plan: The patient was seen and evaluated by Dr. Sidhu Chest x-ray and labs reviewed Titrate the FiO2 as tolerated, transition to high flow nasal cannula We will continue to follow I, the cosigning physician, performed a history & physical examination of the patient. Lungs sounds crackles in the bilateral posterior bases. Maintaining good O2 saturations in the 90s on AirVo high flow oxygen at 35 L and 65% FiO2. I discussed the assessment and plan of care with my nurse practitioner, Krupa Alarcon. I attest to the above note as dictated by her.
[2020-06-04 20:30] LABS: Glucose,Whole Blood 213 mg/dL (75-99)
[2020-06-04] MEDS: INSULIN DETEMIR (LEVEMIR) 100 UNIT/ML SYR SQ SCH (20:38)
[2020-06-05] MEDS: methylPREDNISolone SOD SUCCI 125 MG/2 ML VIAL IV SCH ×4 (00:02→23:51)
[2020-06-05 07:00] LABS: Glucose,Whole Blood 108 mg/dL (75-99)
[2020-06-05] MEDS: INSULIN ASPART (NovoLOG) 100 UNIT/ML VIAL SQ SCH ×7 (07:41→20:17)
[2020-06-05] MEDS: ASCORBIC ACID 500 MG TAB PO SCH (07:48)
[2020-06-05] MEDS: METOPROLOL SUCCINATE (ER) 50 MG TAB.ER.24H PO SCH (07:49)
[2020-06-05] MEDS: ZINC SULFATE 220 MG CAP PO SCH (07:49)
[2020-06-05] MEDS: ATORVASTATIN 80 MG TAB PO SCH (07:49)
[2020-06-05] MEDS: FAMOTIDINE 20 MG TAB PO SCH (07:49)
[2020-06-05] MEDS: glipiZIDE 10 MG TAB PO SCH ×2 (07:49→20:17)
[2020-06-05] MEDS: ASPIRIN 81 MG PO SCH (07:50)
[2020-06-05] MEDS: ENOXAPARIN 40 MG/0.4 ML SYRINGE SQ SCH (07:50)
[2020-06-05] MEDS: CLOPIDOGREL 75 MG TAB PO SCH (07:50)
[2020-06-05] MEDS: PIOGLITAZONE 30 MG TAB PO SCH (07:51)
[2020-06-05 09:16] LABS: Basophils % (A) 0 %; Eosinophils % (A) 0 %; HCT 42.8 % (39.0-53.0); HGB 14.2 gm/dL (13.0-17.5); Lymphocytes # (A) 1.3 k/uL (1.0-4.8); Lymphocytes % (A) 9 %; MCH 31.2 pg (25.0-35.0); MCHC 33.1 g/dL (31.0-37.0); MCV 94.1 fL (80.0-100.0); Mean Platelet Volume 8.8; Monocytes # (A) 0.8 k/uL (0-1.0); Monocytes % (A) 5 %; Neutrophils # (A) 13.2 k/uL (1.3-7.7); Neutrophils % (A) 86 %; Platelet Count 274 k/uL (150-450); RBC 4.55 m/uL (4.30-5.90); RDW 13.3 % (11.5-15.5); WBC 15.4 k/uL (3.8-10.6)
[2020-06-05 09:38] LABS: African American GFR (CKD) 71 (>60 ml/min/1.73 sqM); Anion Gap 3 mmol/L; Blood Urea Nitrogen 58 mg/dL (9-20); Calcium 8.6 mg/dL (8.4-10.2); Carbon Dioxide 25 mmol/L (22-30); Chloride 107 mmol/L (98-107); Glucose 170 mg/dL (74-99); Non-African American GFR(CKD) 62 (>60 ml/min/1.73 sqM); Potassium 5.2 mmol/L (3.5-5.1); Sodium 135 mmol/L (137-145)
[2020-06-05 11:26] LABS: Glucose,Whole Blood 297 mg/dL (75-99)
--- NOTE | 2020-06-05 15:33 | P.PN ---
Subjective Progress Note Date: 06/05/20 80-year-old male who presents emergency Department stating that he has had shortness of breath and feeling fatigued for at least 2 weeks. Patient states he has had exposure to COVID . Patient states he has had a fever. Patient states she's also states and smile. Patient also states she's had diarrhea. Patient denies any chest pain or palpitations. Patient denies any abdominal pain patient denies nausea vomiting diarrhea. According to EMS with the patient was coming in he was satting in the low 80s. Patient is currently on a few liters of oxygen and sat in mid 90s. Patient is a diabetic and has high blood pressure. Patient also has a pacemaker. Patient is presently on 2 L of oxygen was requiring 4 L yesterday. Patient was started on IV fluids patient creatinine went up to 1.6 baseline is around 1. Patient's blood sugars are highly elevated. Patient tests positive for Covid. 05/22/2020 Patient is presently on 2 L of oxygen appears to be doing better possibility of discharge tomorrow. Creatinine went up a bit to 1.6 baseline is around the 1. Patient was started on IV fluids will recheck the basic metabolic profile tomorrow. 05/23/2020 Patient seen and evaluated in follow-up continues to be on 2 L of oxygen and becomes dyspneic with exertion. Patient states he does not know wear oxygen at home. Pulmonary is following. Patient's blood sugars are elevated and will continue sliding scale at this time as patient is on steroids. Potassium was found to be slightly elevated at 5.5 and was given a dose of Kayexalate. Will repeat a.m. labs. Instructed and encouraged the patient to get up and increase activity as tolerated. 05/24/2020 Patient is presently in 2 does of hours and doing clinically well. Patient is on dexamethasone, vitamin supplements, subcutaneous heparin. No worsening shortness of breath, cough or congestion. D-dimer 1.02. Sodium 145. Potassium 5.1. Creatinine 1.3. LDH 485. C-reactive protein 4.4. His creatinine actually went up a little bit from 1.19-1.3 05/25/2020 Patient is fairly stable no significant improvement or worsening. Patient is still on 2 L of oxygen. We'll monitor him 1 more night. Continues to require oxygen patient probably can be discharged on 2 L tomorrow this can be tapered or discontinued as an outpatient. Patient d-dimer is bit worse compared to admission. Although other inflammatory markers are better 05/26/2020 Patient is seen this morning currently on nonrebreather and airvo as his oxygen was found to be 89% on 6 L of oxygen. Pulmonary is following. D-dimer has gone up at 1.70 along with lactate dehydrogenase at 491 and CRP is 9.4. Blood sugars continue to be elevated and patient is maintained on sliding scale along with long-acting and pre-meal insulin and will continue at this time. Patient continues on vitamin and zinc supplements along with Lovenox and dexamethasone daily. Patient is scheduled to receive Tocilizumab today. Will continue to monitor closely based on the clinical course of the patient. Patient continues to be weak and was seen and evaluated by physical therapy recommending subacute rehab and patient is now agreeable and a social work consult was placed. 05/27/2020 Patient is seen and evaluated this morning with no improvement in respiratory status. Patient remains on Airvo with supplemental nonrebreather. Patient is day 2 of receiving Tocilizumab. Will repeat a.m. chest x-ray along with inflammatory markers. D-dimer today was 1.60. White blood count has gone up in is 10.8, hemoglobin is 12.6. Patient is afebrile. To continue with dexametha sone, Lovenox, vitamin C and zinc supplements. Pulmonary is following. Had a discussion with the patient about CODE STATUS along with his son Mauricio and currently wish to remain a full code until talking with family member more extensively about the situation. Will continue to monitor closely. Prognosis remains guarded. 05/28/2020 Patient is seen this morning status post getting up to the bathroom and continues to be extremely dyspneic with any exertion and was found to be low 80s to 83% oxygenation. Patient continues on the airvo with a flow rate of 60 and FiO2 of 64 and is currently 91%. Patient denies any chest pain or palpitations. Patient is afebrile. Patient reports to tolerating diet with no nausea or vomiting noted. D-dimer continues to be elevated at 2.56, sodium today is 140 with a potassium of 5.1 and creatinine is 1.2. Blood sugars on the lower side this morning and will continue to monitor closely and treat accordingly with sliding scale. Inflammatory markers trending down. Pulmonary following closely. Chest x-ray today shows continued bibasilar infiltrates which are nonspecific but worsening. 05/29/2020 Patient is seen in follow-up this morning and continues to be on Airvo no significant change. Patient was on dexamethasone all being transitioned to IV Solu-Medrol and will continue with Accu-Cheks and close glycemic control with pre-meal, long-acting, and sliding scale. White blood count is 13.9, hemoglobin is stable at 13.2, d-dimer is 2.95, sodium is 137, potassium is 5.1, creatinine slightly elevated at 1.24. Inflammatory markers have gone up. Patient is sitting up in the chair and denies any chest pain or worsening shortness of breath. Patient states he feels he is about the same. Patient also states he has been sleeping a lot and tolerating diet with no reports of nausea or vomiting. Discussed with patient about increasing activity as tolerated although patient is extremely dyspneic with minimal exertion. 05/30/2020 Patient is seen and evaluated this morning and follow-up with no acute overnight issues. Patient continues to be on Airvo with a flow rate of 60 and FiO2 of 70 and is being closely monitored. Transitioned to IV Solu-Medrol and will continue at this time. Blood sugars elevated and increasing long-acting and pre-meal insulins and will continue sliding scale along with oral antidiabetic agents. Need tighter glycemic control. Patient has been eating 100% of all meals with no reports of nausea or vomiting noted. Patient clinically looking better and chest x-ray displays stable infiltrates. D-dimer slightly trending down along with inflammatory markers. Creatinine is stable at 1.2 and potassium is 5.5. Will continue to monitor vital signs and labs closely. On 05/31/2020 -patient is seen and examined at the bedside. He is sitting up in the chair and is on Airvo 60 L with FiO2 of 70%, saturating about 90%. He still complains of exertional dyspnea and cough at times. Denies having any fevers chills or rigors. He complains of generalized weakness. On reviewing his vitals temperature of 97.9, heart rate 63, respiratory rate 18, blood pressure 120 x 62 . On reviewing his labs white count of 22.9, hemoglobin 13, platelets 299. Sodium 136, potassium 5.6, chloride 104, bicarb 26, BUN 55, creatinine 1.15. Blood sugars running on the higher side around 300s. Patient had a chest x-ray done this morning showing mild to moderate mid and lower zone infiltrates. On 06/01/2020 -patient is seen and examined at bedside. He is sitting up in a chair at fifth high flow oxygen at 60 L FiO2 of 70% and pulse ox at 94%. He is still having exertional dyspnea and complains of generalized weakness. He states that he is tired of using the oxygen. On reviewing the vitals T-max of 97.9, heart rate 60, respiratory 19, blood pressure 130/60. Reviewing the labs LDH 378, CRP less than 0.04 and D-dimer of 1.53. All medications have been reviewed and pertinent changes made. 06/02/2020 Patient is seen and evaluated this morning with no acute overnight issues. Patient continues to sit up in the chair throughout most of the day as he states his breathing is better. Patient continues to be on Airvo and flow rate has been decreased to 40 with an FiO2 of 70% and is currently 92%. Patient con tinues to have dyspnea with minimal exertion and continues to have weakness and will likely require some form rehab once stabilized and discharged. PT/OT to continue to follow. White blood count trending down at 18.64 and hemoglobin is stable at 13.2. D-dimer is 1.60 with a sodium of 136 and potassium was found to be 6.1 and being corrected and will repeat a.m. labs. Creatinine is 1.2. Blood sugars continue to be elevated and will continue with sliding scale and long- acting and monitor closely. LDH trending back up at 503 and will monitor closely. CRP is 0.4. 06/03/2020 Patient's potassium is still high received the calcium gluconate and insulin as today. Will order capsulate. This is nonhemolyzed sample patient was started on low potassium diet. Patient remains on Airvo , 40 L and 60% FiO2 which is better compared to yesterday and saturating better appears to have been some improvement. 06/04/2020 Patient is seen and evaluated this morning continues to be sitting up in the chair. Patient states he feels his breathing is improved but "I'm still here in the hospital". Patient has continued weakness and has been working with PT/OT therapy. Patient does require assistance to the bedside commode and will have PT/OT therapy reevaluate with the possibility of ECF once stabilized and discharged. Sodium today is 138 with a potassium of 5.2 and current creatinine is 1.3. Blood sugars being closely monitored and will continue with current medication regimen. Respiratory slowly weaning Airvo settings and is maintained on a flow rate of 35 with an FiO2 of 65%. Pulmonary is following. 06/05/2020 Patient is seen this morning continues to be on Airvo and slow to respond. Current settings have a flow rate of 36 and FiO2 of 60%. Patient denies any worsening shortness of breath. White blood count trending down at 15.4, hemoglobin is stable at 14.2, sodium is 135, potassium is 5.2, current creatinine slightly improved at 1.12. Constitutional: No reports of fatigue, denied any fever. Cardio vascular: denied any chest pain, palpitations Gastrointestinal denied any nausea vomiting Pulmonary: Reports continued shortness of breath but feels has improved slightly Neurologic reports generalized weakness All inpatient medications were reviewed and appropriate changes in these medications as dictated in the interval history and assessment and plan. Objective - Vital Signs Vital signs: Vital Signs Temp 97.6 F 06/05/20 05:55 Pulse 65 06/05/20 05:55 Resp 16 06/05/20 08:00 BP 134/61 06/05/20 05:55 Pulse Ox 92 L 06/05/20 05:55 Intake & Output 06/04/20 06/05/20 06/05/20 18:59 06:59 18:59 Output Total 2 700 Balance -2 -700 Output: Urine 1 700 Stool 1 Other: Voiding Method Bedside Commode Bedside Commode Urinal Urinal - Exam GENERAL: The patient is alert and oriented x3, not in any acute distress. Obese, currently on airvo at a flow rate of 36 with an FiO2 of 60, continue to wean as tolerated HEENT: Pupils are round and equally reacting to light. EOMI. No scleral icterus. No conjunctival pallor. Normocephalic, atraumatic. No pharyngeal erythema. No thyromegaly. CARDIOVASCULAR: S1 and S2 present. No murmurs, rubs, or gallops. PULMONARY: Diminished breath sounds bilaterally with no wheezing or rhonchi noted ABDOMEN: Soft, nontender, nondistended, normoactive bowel sounds. No palpable organomegaly. MUSCULOSKELETAL: No joint swelling or deformity. EXTREMITIES: No cyanosis, clubbing, or pedal edema. NEUROLOGICAL: Gross neurological examination did not reveal any focal deficits. Diffuse weakness SKIN: No rashes. - Labs CBC & Chem 7: 06/05/20 08:49 06/05/20 08:49 Labs: Abnormal Lab Results - Last 24 Hours (Table) 06/04/20 06/04/20 06/04/20 Range/Units 06:06 11:55 16:39 BUN 56.0 H (9.0-27.0) mg/dL Est GFR (CKD-EPI)AfAm 59.3 L (60.0-200.0) Est GFR (CKD-EPI)NonAf 51.2 L (60.0-200.0) BUN/Creatinine Ratio 43.08 H (12.00-20.00) Ratio Glucose 119 H (70-110) mg/dL POC Glucose (mg/dL) 252 H 220 H (75-99) mg/dL Calcium 8.5 L (8.7-10.3) mg/dL 06/04/20 06/05/20 Range/Units 20:29 06:50 BUN (9.0-27.0) mg/dL Est GFR (CKD-EPI)AfAm (60.0-200.0) Est GFR (CKD-EPI)NonAf (60.0-200.0) BUN/Creatinine Ratio (12.00-20.00) Ratio Glucose (70-110) mg/dL POC Glucose (mg/dL) 213 H 108 H (75-99) mg/dL Calcium (8.7-10.3) mg/dL Assessment and Plan Assessment: -acute hypoxic respiratory failure: Secondary to covid 19 pneumonia patient maintained on vitamin and zinc supplements. Patient currently on IV solu- Medrol. has received 2 doses of Tocilizumab and is continued on Lovenox. inflammatory markers ,Patient currently on Airvo. Pulmonary following -Type 2 diabetes mellitus uncontrolled elevated blood sugars secondary to systemic steroids, continue with pre-meal, sliding scale, and long-acting, with adjustments made and will increase pre-male and long-acting doses -Hyperkalemia, improved continue with low potassium diet -Hypotonic hyponatremia, improved -Acute renal failure secondary to Covid 19: Improved, current creatinine is 1.1 -Hypertension -DVT subcutaneous Lovenox -Full code Plan: Continue with current medications. Will continue IV Solu-Medrol with vitamin and zinc supplements, and lovenox . patient has received Tocilizumab x2. Pulmonary following . Patient currently on airvo and slowly weaning as tolerated. Very slow to respond. Current settings are flow rate of 36 and FiO2 of 60%. Continue with low potassium diet. PT/OT following and patient will likely require ECF for continued PT/OT therapy due to weakness once stabilized and discharged. Patient response to treatment is slow. Will continue to monitor closely. Prognosis remains guarded.
--- NOTE | 2020-06-05 16:18 | P.PN ---
Subjective Progress Note Date: 06/05/20 Principal diagnosis: CoVID 19 pneumonia 80-year-old male, who was brought to the emergency department by EMS. The patient apparently has had 2 weeks' worth of increasing shortness of breath, and significant fatigue. The patient also had chest congestion. He had a fever. The patient states that he is just not been feeling well and getting progressively worse. He also apparently had an episode or 2 of diarrhea. The patient denied any chest pain or chest pressure or palpitations. The patient also denied nausea, vomiting, and abdominal pain. Apparently when EMS arrived, the patient's saturations were in the low 80s on room air. For that reason, he was transported in, evaluated, and admitted with a diagnosis of COVID 19 19 pneumonia. The patient does have a history of diabetes, hypertension, and a previous pacemaker insertion. White count was 4.6, hemoglobin 12.5, hematocrit 37.1, and platelet count 153,000. PT, INR, and PTT were all normal. D-dimer was 0.77. Sodium 136, potassium 4.5, chlorides 102, CO2 26, anion gap 8, BUN 47, and creatinine 1.63. Ferritin was 985, LDH 818, C-reactive protein 58, and pro-calcitonin level was 0.12. Chest x-ray did show some interstitial infiltrates. On 05/22/2020 patient seen in follow-up on medical floor. he is on 2 L of oxygen his pulse ox is 90-94%, breathing comfortably, no fever or chills, blood pressure has been stable. Denies any worsening dyspnea or hypoxemia, he has a mild cough, no chest discomfort. He continues on oral Decadron 6 mg daily, IV hydration, vitamins, d-dimer was low at 0.77, patient is on subcu heparin for DVT prophylaxis, pro-calcitonin level was low, inflammatory markers were not significantly elevated on admission. Clinically symptoms have not progressed, and patient will be considered for discharge in next 24 hours. The patient is seen today 05/23/2020 in follow-up on the regular medical floor. He is currently sitting up in chair at the bedside. Awake and alert in no acute distress. Continue O2 saturations in the low 90s on 2 L/m per nasal cannula. Afebrile. Hemodynamically stable. Blood cultures reveal no growth. Blood glucose 202. Sodium 143. Potassium 5.5. Creatinine 1.19. He remains on dexamethasone, so continues heparin, vitamin supplements. Chest x-ray continues to show bilateral multifocal opacities consistent with CoVID infection. No neri ge. The patient is seen today 05/24/2020 in follow-up on the regular medical floor. He is currently resting comfortably in bed. Awake and alert in no acute distress. He is maintaining O2 saturations in the 90s on 2 L/m per nasal cannula. He's been on dexamethasone, vitamin supplements, subcutaneous heparin. No worsening shortness of breath, cough or congestion. D-dimer 1.02. Sodium 145. Potassium 5.1. Creatinine 1.3. LDH 485. C-reactive protein 4.4. The patient is seen today 05/25/2020 in follow-up on the regular medical floor. He is currently resting quite comfortably in bed. Maintaining O2 saturations in the low 90s on 2 L/m per nasal cannula. Sodium 144. Potassium 4.7. Creatinine 1.2. Glucose 173. He remains on dexamethasone, heparin, vitamin supplements. 05/26/2020 on seeing the patient for a follow-up regarding the patient's acute hypoxic respiratory failure due to Covid 19 related pneumonia. The patient was not a candidate for Remdesivir, Tocilizumab or convalescent plasma, and the patient is currently on Decadron 6 mg on a daily basis and addition to Levemir insulin 50 units daily at bedtime and NovoLog 6 units 3 times a day with meals and a sliding scale coverage. The patient was on 2 L about 2 by nasal cannula with pulse ox of 93%. Earlier this morning, the patient's oxidation progressively got worse in the patient is currently on 100% nonrebreather facemask maintaining a saturation above 90% at around 94%. Overall, the patient is doing well. Creatinine is at 1.2. The patient had a CRP level of 4.4 with an LDH level of 485 from 05/24/2020. Inflammatory markers are being monitored. Last d-dimer from 05/24/2020 was 1.02. Blood cultures were negative repeat chest x-ray was done today and the findings are essentially stable and the pat ient has patchy bilateral perihilar pulmonary infiltrates without any significant interval change. D-dimer from today is at 1.7 and the patient remains on Lovenox. 05/27/2020 the patient is being seen for a follow-up. The patient is currently on high flow oxygen at 6 L. Note that the patient was on 100% nonrebreather facemask and was switched him to a high flow oxygen yesterday at 60 L. As part of his treatment, the patient received steroids and currently is receiving dexamethasone 6 mg by mouth daily. He is also Toci 2 yesterday and today. He completed treatment without any major side effects. Note that the patient was on low-flow oxygen and he progressively got worse requiring 100% nonrebreather and subsequent high flow oxygen. On today's evaluation, his white cell count is at 10. His d-dimer is at 1.6. Rest of the inflammatory markers have not been checked and this will be repeated tomorrow. LDH from yesterday was 491 with a CRP of 9.4. Otherwise, his renal function shows a stable creatinine of 1.2. The patient has been on FiO2 of 60% with a high flow oxygen of 60 L and the patient has been essentially stable since yesterday. No other significant events. Remains on Lovenox 40 mg subcu on a daily basis. 05/28/2020, the patient is still on high flow oxygen and 60 L. He is not utilizing the 100% nonrebreather facemask this morning. Note that the patient has received steroids, and he remains on Decadron 6 mg by mouth daily. He also completed Tocilizumab. On today's evaluation, chest x-ray findings are stable without any interval change in the bilateral pulmonary infiltrates. The patient is resting comfortably in bed. He is also able to move on a recliner. Labs today shows an LDH of 414 and a CRP of 2.9 and the patient is d-dimer is at 2.56. The patient remains on Lovenox 40 mg subcu on a daily basis. He is on Levemir insulin 50 units daily along with NovoLog 6 units with meals plus a sliding coverage. I will say his condition essentially the same as unchanged compared to yesterday. He is not doing much in progress for now. On today's evaluation of 05/29/2020 the patient is being seen for a follow-up. The patient remains on high flow oxygen with a flow of 6 L an FiO2 of 60%. His current pulse ox is around 88%. He is afebrile. He is doing well. Sitting up on a chair. No signs of any respiratory distress. His breathing is nonlabored and he doesn't have any significant cough unless he takes a deep inspiration. The patient had follow-up blood work today. His LDL level is up 1221 and a CRP level is up to 12.6 and his d-dimer currently is at 2.95. I cannot explain the rise in these inflammatory markers. His creatinine is at 1.2. Was a causative 13.7 with a hemoglobin of 13.2. His chest x-ray from yesterday was showing right basilar infiltrates which are nonspecific and it was mentioned that he was getting worse. The patient remains on Decadron 6 mg by mouth daily. He remains on 50 units of Levemir insulin along with 6 units of NovoLog [id number]. He remains on aspirin. He remains on Lovenox for DVT prophylaxis 40 mg subcu. 05/30/2020 the patient is on high flow oxygen at 60 L with an FiO2 of 70%. His pulse ox was around 93%. He feels well. No altered mentation. Resting comfortably. Sitting up and he has no significant shortness of breath at rest. His chest x-ray still showing diffuse bilateral pulmonary infiltrates, peripheral distribution, probably slightly worse compared to yesterday. However, the radiologist reports is stating that the findings are essentially stable. Clinically he is also stable. The labs from today shows a sugar of 407 is quite high and a d-dimer is down to 1.89 and the patient's LDH level is down to 419 with a CRP level of 0.7. The patient remains on Levemir insulin and is currently taking 50 units along with 6 units with meals of NovoLog. 05/31/2020 the patient remains on high flow at 60 L with an FiO2 of 70% which is essentially the same as yesterday. His pulse ox currently is around 93%. His chest x-ray from today is showing diffuse bilateral pulmonary infiltrates, peripheral distribution, I thought his chest x-ray and probably the x-ray findings are improved compared to yesterday's chest x-ray. I have the patient on Solu-Medrol 60 mg every 6 hours. He is also on anticoagulation. He is receiving Lovenox.. His d-dimer is at 1.57 on today's evaluation. His LDH level is high today at 1059 with a CRP of less than 5. He remains on Levemir insulin 50 units along with 6 units of NovoLog with meals and his blood sugars under adequate control for now. He has no other complaints otherwise. Note that initially the patient was started on Decadron and during the course of his treatment he was given Toci 06/01/2020, the patient is on high flow oxygen at 60 L along with an FiO2 of 70%. Pulse ox is in order of 96%. I'm hoping to get down the FiO2 further today. The patient is on IV Solu-Medrol. He is on long-term anticoagulation. He is receiving Lovenox at a dose of 40 mg subcu on a daily basis. In terms of inflammatory markers and blood work, the patient's CRP is less than 0.4 and the LDH level is at 378. The chest x-ray was done yesterday showed some lower lobe active pulmonary infiltrates, findings are unchanged. The patient is awake and alert and following commands and answering questions. He is on Levemir insulin as a dose of 60 daily at bedtime and he is also on NovoLog 10 units with meals and a sliding scale coverage. He has completed tocilizumab The patient is seen today 06/02/2020 in follow-up on the regular medical floor. He is currently sitting up in a chair at the bedside. Awake and alert in no acute distress. He remains on AirVo high flow oxygen at 40 L and 70% FiO2. He is afebrile. White count 18.6. Hemoglobin 13.2. D-dimer 1.6. Sodium 136. Potassium 6.1. Creatinine 1.2. LDH 503. C-reactive protein less than 0.4. Remains on Lovenox, IV Soluj Medrol, vitamin supplements. The patient is seen today 06/03/2020 in follow-up on the regular medical floor. Currently sitting up in a chair at the bedside. Awake and alert in no acute distress. He remains on AirVo high flow oxygen at 40 L and 60% FiO2 to maintain O2 saturations at 88%. Sodium 137. Potassium 5.6. Creatinine 1.3. Glucose 271. Remains on IV Solu-Medrol, Lovenox, vitamin supplements. Levemir and NovoLog sliding scale. Patient is seen today 06/04/2020 in follow-up on the regular medical floor. He is currently sitting up in a chair at the bedside. Awake, alert in no acute distress. Feeling a bit better today compared to yesterday. He is still on AirVo high flow oxygen at 35 L and 65% FiO2 and maintaining O2 saturations at 94%. He remains on IV Solu-Medrol, Lovenox, vitamin supplements. Chest x-ray continues to show patchy bilateral infiltrates similar to previous. The patient is seen today 06/05/2020 in follow-up on the regular medical floor. He is currently resting in bed. Awake and alert in no acute distress. Still requiring AirVo high flow oxygen at 30 L and 60% FiO2. Chest x-ray remains stable. Lung sounds but are clearing. He is feeling better today compared to yesterday. Afebrile. White count 15.4. Hemoglobin 14.2. Sodium 135. Potassium 5.2. Creatinine 1.12. He remains on Lovenox, Solu-Medrol, vitamin supplements. Objective - Vital Signs Vital signs: Vital Signs Temp 98.1 F 06/05/20 13:56 Pulse 68 06/05/20 13:56 Resp 22 06/05/20 13:56 BP 141/58 06/05/20 13:56 Pulse Ox 88 L 06/05/20 13:56 Intake & Output 06/04/20 06/05/20 06/05/20 18:59 06:59 18:59 Output Total 2 700 700 Balance -2 -700 -700 Output: Urine 1 700 700 Stool 1 Other: Voiding Method Bedside Commode Bedside Commode Urinal Urinal # Bowel Movements 1 - Exam GENERAL EXAM: Alert, pleasant, 80-year-old male patient, on AirVo high flow oxygen at 30 L and 60% FiO2 comfortable in no apparent distress. HEAD: Normocephalic/atraumatic. EYES: Normal reaction of pupils, equal size. Conjunctiva pink, sclera white. NOSE: Clear with pink turbinates. THROAT: No erythema or exudates. NECK: No masses, no JVD, no thyroid enlargement, no adenopathy. CHEST: No chest wall deformity. Symmetrical expansion. LUNGS: Equal air entry with bibasilar coarse crackles CVS: Regular rate and rhythm, normal S1 and S2, no gallops, no murmurs, no rubs ABDOMEN: Soft, nontender. No hepatosplenomegaly, normal bowel sounds, no guarding or rigidity. EXTREMITIES: No clubbing, no edema, no cyanosis, 2+ pulses and upper and lower extremities. MUSCULOSKELETAL: Muscle strength and tone normal. SPINE: No scoliosis or deformity SKIN: No rashes CENTRAL NERVOUS SYSTEM: No focal deficits, tone is normal in all 4 extremities. PSYCHIATRIC: Alert and oriented -3. Appropriate affect. Intact judgment and insight. - Labs CBC & Chem 7: 06/05/20 08:49 06/05/20 08:49 Labs: Abnormal Lab Results - Last 24 Hours (Table) 06/04/20 06/04/20 06/05/20 Range/Units 16:39 20:29 06:50 WBC (3.8-10.6) k/uL Neutrophils # (1.3-7.7) k/uL Sodium (137-145) mmol/L Potassium (3.5-5.1) mmol/L BUN (9-20) mg/dL Glucose (74-99) mg/dL POC Glucose (mg/dL) 220 H 213 H 108 H (75-99) mg/dL 06/05/20 06/05/20 06/05/20 Range/Units 08:49 08:49 11:22 WBC 15.4 H (3.8-10.6) k/uL Neutrophils # 13.2 H (1.3-7.7) k/uL Sodium 135 L (137-145) mmol/L Potassium 5.2 H (3.5-5.1) mmol/L BUN 58 H (9-20) mg/dL Glucose 170 H (74-99) mg/dL POC Glucose (mg/dL) 297 H (75-99) mg/dL Assessment and Plan Assessment: 1 Acute hypoxic respiratory failure secondary to CoVID 19 pneumonia, he did receive Tocilizumab 2 History of diabetes mellitus type 2 3 History of hypertension 4 History of chronic sinus disease 5 History of diverticulitis, status post bowel resection 6 Hyperkalemia Plan: The patient was seen and evaluated by Dr. Sidhu Oxygen requirements improving. Currently at 30 L and 60% FiO2 via AirVo Titrate the FiO2 as tolerated Continue the current treatment plan We will continue to follow I, the cosigning physician, performed a history & physical examination of the patient. Lungs sounds crackles in the bilateral posterior bases. Maintaining good O2 saturations in the 90s on AirVo high flow oxygen at 30 L and 60% FiO2. I discussed the assessment and plan of care with my nurse practitioner, Krupa Alarcon. I attest to the above note as dictated by her.
[2020-06-05 17:07] LABS: Glucose,Whole Blood 319 mg/dL (75-99)
[2020-06-05 20:07] LABS: Glucose,Whole Blood 233 mg/dL (75-99)
[2020-06-05] MEDS: INSULIN DETEMIR (LEVEMIR) 100 UNIT/ML SYR SQ SCH (20:17)
[2020-06-06 07:09] LABS: Glucose,Whole Blood 109 mg/dL (75-99)
[2020-06-06] MEDS: INSULIN ASPART (NovoLOG) 100 UNIT/ML VIAL SQ SCH ×7 (08:04→20:22)
[2020-06-06] MEDS: CLOPIDOGREL 75 MG TAB PO SCH (08:13)
[2020-06-06] MEDS: ATORVASTATIN 80 MG TAB PO SCH (08:13)
[2020-06-06] MEDS: METOPROLOL SUCCINATE (ER) 50 MG TAB.ER.24H PO SCH (08:13)
[2020-06-06] MEDS: glipiZIDE 10 MG TAB PO SCH ×2 (08:13→20:21)
[2020-06-06] MEDS: methylPREDNISolone SOD SUCCI 125 MG/2 ML VIAL IV SCH ×3 (08:13→23:19)
[2020-06-06] MEDS: ASCORBIC ACID 500 MG TAB PO SCH (08:13)
[2020-06-06] MEDS: FAMOTIDINE 20 MG TAB PO SCH (08:14)
[2020-06-06] MEDS: ZINC SULFATE 220 MG CAP PO SCH (08:14)
[2020-06-06] MEDS: PIOGLITAZONE 30 MG TAB PO SCH (08:14)
[2020-06-06] MEDS: ENOXAPARIN 40 MG/0.4 ML SYRINGE SQ SCH (08:14)
[2020-06-06] MEDS: ASPIRIN 81 MG PO SCH (08:14)
--- NOTE | 2020-06-06 10:05 | XR ---
EXAMINATION TYPE: XR chest 1V portable DATE OF EXAM: 06/06/2020 Comparison: 06/04/2020 Clinical History: 80-year-old male shortness of breath, covid Findings: Left anterior chest wall pacemaker generator with right atrial and ventricular leads. Heart upper gutierrez its of normal in size. Patchy bilateral airspace opacities, slightly increased in the mid and lower l ungs. No pleural effusion. Impression: Patchy bilateral airspace disease, slightly increased in the mid and lower lungs.
[2020-06-06 10:36] LABS: African American GFR (CKD) 64 (>60 ml/min/1.73 sqM); Anion Gap 0 mmol/L; Blood Urea Nitrogen 54 mg/dL (9-20); Calcium 8.2 mg/dL (8.4-10.2); Carbon Dioxide 31 mmol/L (22-30); Chloride 106 mmol/L (98-107); Glucose 133 mg/dL (74-99); Non-African American GFR(CKD) 56 (>60 ml/min/1.73 sqM); Potassium 4.7 mmol/L (3.5-5.1); Sodium 137 mmol/L (137-145)
[2020-06-06 11:17] LABS: Glucose,Whole Blood 136 mg/dL (75-99)
--- NOTE | 2020-06-06 15:57 | P.PN ---
Subjective Progress Note Date: 06/06/20 80-year-old male who presents emergency Department stating that he has had shortness of breath and feeling fatigued for at least 2 weeks. Patient states he has had exposure to COVID . Patient states he has had a fever. Patient states she's also states and smile. Patient also states she's had diarrhea. Patient denies any chest pain or palpitations. Patient denies any abdominal pain patient denies nausea vomiting diarrhea. According to EMS with the patient was coming in he was satting in the low 80s. Patient is currently on a few liters of oxygen and sat in mid 90s. Patient is a diabetic and has high blood pressure. Patient also has a pacemaker. Patient is presently on 2 L of oxygen was requiring 4 L yesterday. Patient was started on IV fluids patient creatinine went up to 1.6 baseline is around 1. Patient's blood sugars are highly elevated. Patient tests positive for Covid. 05/22/2020 Patient is presently on 2 L of oxygen appears to be doing better possibility of discharge tomorrow. Creatinine went up a bit to 1.6 baseline is around the 1. Patient was started on IV fluids will recheck the basic metabolic profile tomorrow. 05/23/2020 Patient seen and evaluated in follow-up continues to be on 2 L of oxygen and becomes dyspneic with exertion. Patient states he does not know wear oxygen at home. Pulmonary is following. Patient's blood sugars are elevated and will continue sliding scale at this time as patient is on steroids. Potassium was found to be slightly elevated at 5.5 and was given a dose of Kayexalate. Will repeat a.m. labs. Instructed and encouraged the patient to get up and increase activity as tolerated. 05/24/2020 Patient is presently in 2 does of hours and doing clinically well. Patient is on dexamethasone, vitamin supplements, subcutaneous heparin. No worsening shortness of breath, cough or congestion. D-dimer 1.02. Sodium 145. Potassium 5.1. Creatinine 1.3. LDH 485. C-reactive protein 4.4. His creatinine actually went up a little bit from 1.19-1.3 05/25/2020 Patient is fairly stable no significant improvement or worsening. Patient is still on 2 L of oxygen. We'll monitor him 1 more night. Continues to require oxygen patient probably can be discharged on 2 L tomorrow this can be tapered or discontinued as an outpatient. Patient d-dimer is bit worse compared to admission. Although other inflammatory markers are better 05/26/2020 Patient is seen this morning currently on nonrebreather and airvo as his oxygen was found to be 89% on 6 L of oxygen. Pulmonary is following. D-dimer has gone up at 1.70 along with lactate dehydrogenase at 491 and CRP is 9.4. Blood sugars continue to be elevated and patient is maintained on sliding scale along with long-acting and pre-meal insulin and will continue at this time. Patient continues on vitamin and zinc supplements along with Lovenox and dexamethasone daily. Patient is scheduled to receive Tocilizumab today. Will continue to monitor closely based on the clinical course of the patient. Patient continues to be weak and was seen and evaluated by physical therapy recommending subacute rehab and patient is now agreeable and a social work consult was placed. 05/27/2020 Patient is seen and evaluated this morning with no improvement in respiratory status. Patient remains on Airvo with supplemental nonrebreather. Patient is day 2 of receiving Tocilizumab. Will repeat a.m. chest x-ray along with inflammatory markers. D-dimer today was 1.60. White blood count has gone up in is 10.8, hemoglobin is 12.6. Patient is afebrile. To continue with dexametha sone, Lovenox, vitamin C and zinc supplements. Pulmonary is following. Had a discussion with the patient about CODE STATUS along with his son Mauricio and currently wish to remain a full code until talking with family member more extensively about the situation. Will continue to monitor closely. Prognosis remains guarded. 05/28/2020 Patient is seen this morning status post getting up to the bathroom and continues to be extremely dyspneic with any exertion and was found to be low 80s to 83% oxygenation. Patient continues on the airvo with a flow rate of 60 and FiO2 of 64 and is currently 91%. Patient denies any chest pain or palpitations. Patient is afebrile. Patient reports to tolerating diet with no nausea or vomiting noted. D-dimer continues to be elevated at 2.56, sodium today is 140 with a potassium of 5.1 and creatinine is 1.2. Blood sugars on the lower side this morning and will continue to monitor closely and treat accordingly with sliding scale. Inflammatory markers trending down. Pulmonary following closely. Chest x-ray today shows continued bibasilar infiltrates which are nonspecific but worsening. 05/29/2020 Patient is seen in follow-up this morning and continues to be on Airvo no significant change. Patient was on dexamethasone all being transitioned to IV Solu-Medrol and will continue with Accu-Cheks and close glycemic control with pre-meal, long-acting, and sliding scale. White blood count is 13.9, hemoglobin is stable at 13.2, d-dimer is 2.95, sodium is 137, potassium is 5.1, creatinine slightly elevated at 1.24. Inflammatory markers have gone up. Patient is sitting up in the chair and denies any chest pain or worsening shortness of breath. Patient states he feels he is about the same. Patient also states he has been sleeping a lot and tolerating diet with no reports of nausea or vomiting. Discussed with patient about increasing activity as tolerated although patient is extremely dyspneic with minimal exertion. 05/30/2020 Patient is seen and evaluated this morning and follow-up with no acute overnight issues. Patient continues to be on Airvo with a flow rate of 60 and FiO2 of 70 and is being closely monitored. Transitioned to IV Solu-Medrol and will continue at this time. Blood sugars elevated and increasing long-acting and pre-meal insulins and will continue sliding scale along with oral antidiabetic agents. Need tighter glycemic control. Patient has been eating 100% of all meals with no reports of nausea or vomiting noted. Patient clinically looking better and chest x-ray displays stable infiltrates. D-dimer slightly trending down along with inflammatory markers. Creatinine is stable at 1.2 and potassium is 5.5. Will continue to monitor vital signs and labs closely. On 05/31/2020 -patient is seen and examined at the bedside. He is sitting up in the chair and is on Airvo 60 L with FiO2 of 70%, saturating about 90%. He still complains of exertional dyspnea and cough at times. Denies having any fevers chills or rigors. He complains of generalized weakness. On reviewing his vitals temperature of 97.9, heart rate 63, respiratory rate 18, blood pressure 120 x 62 . On reviewing his labs white count of 22.9, hemoglobin 13, platelets 299. Sodium 136, potassium 5.6, chloride 104, bicarb 26, BUN 55, creatinine 1.15. Blood sugars running on the higher side around 300s. Patient had a chest x-ray done this morning showing mild to moderate mid and lower zone infiltrates. On 06/01/2020 -patient is seen and examined at bedside. He is sitting up in a chair at fifth high flow oxygen at 60 L FiO2 of 70% and pulse ox at 94%. He is still having exertional dyspnea and complains of generalized weakness. He states that he is tired of using the oxygen. On reviewing the vitals T-max of 97.9, heart rate 60, respiratory 19, blood pressure 130/60. Reviewing the labs LDH 378, CRP less than 0.04 and D-dimer of 1.53. All medications have been reviewed and pertinent changes made. 06/02/2020 Patient is seen and evaluated this morning with no acute overnight issues. Patient continues to sit up in the chair throughout most of the day as he states his breathing is better. Patient continues to be on Airvo and flow rate has been decreased to 40 with an FiO2 of 70% and is currently 92%. Patient con tinues to have dyspnea with minimal exertion and continues to have weakness and will likely require some form rehab once stabilized and discharged. PT/OT to continue to follow. White blood count trending down at 18.64 and hemoglobin is stable at 13.2. D-dimer is 1.60 with a sodium of 136 and potassium was found to be 6.1 and being corrected and will repeat a.m. labs. Creatinine is 1.2. Blood sugars continue to be elevated and will continue with sliding scale and long- acting and monitor closely. LDH trending back up at 503 and will monitor closely. CRP is 0.4. 06/03/2020 Patient's potassium is still high received the calcium gluconate and insulin as today. Will order capsulate. This is nonhemolyzed sample patient was started on low potassium diet. Patient remains on Airvo , 40 L and 60% FiO2 which is better compared to yesterday and saturating better appears to have been some improvement. 06/04/2020 Patient is seen and evaluated this morning continues to be sitting up in the chair. Patient states he feels his breathing is improved but "I'm still here in the hospital". Patient has continued weakness and has been working with PT/OT therapy. Patient does require assistance to the bedside commode and will have PT/OT therapy reevaluate with the possibility of ECF once stabilized and discharged. Sodium today is 138 with a potassium of 5.2 and current creatinine is 1.3. Blood sugars being closely monitored and will continue with current medication regimen. Respiratory slowly weaning Airvo settings and is maintained on a flow rate of 35 with an FiO2 of 65%. Pulmonary is following. 06/05/2020 Patient is seen this morning continues to be on Airvo and slow to respond. Current settings have a flow rate of 36 and FiO2 of 60%. Patient denies any worsening shortness of breath. White blood count trending down at 15.4, hemoglobin is stable at 14.2, sodium is 135, potassium is 5.2, current creatinine slightly improved at 1.12. 06/06/2020 Patient is seen and evaluated and follow-up continues to be on airvo requiring more oxygen support with a flow rate of 50 and an FiO2 of 70%. D-dimer continues to trend down at 1.58, sodium is 137, potassium is 4.7, current creatinine is 1.22. Blood sugars have been variable and will continue with current regimen and monitor closely. Continue with Accu-Cheks before meals and at bedtime. Patient is afebrile. Constitutional: No reports of fatigue, denied any fever. Cardio vascular: denied any chest pain, palpitations Gastrointestinal denied any nausea vomiting Pulmonary: Reports continued shortness of breath but feels has improved slightly Neurologic reports generalized weakness All inpatient medications were reviewed and appropriate changes in these medications as dictated in the interval history and assessment and plan. Objective - Vital Signs Vital signs: Vital Signs Temp 97.5 F L 06/06/20 05:28 Pulse 63 06/06/20 05:28 Resp 16 06/06/20 05:28 BP 137/61 06/06/20 05:28 Pulse Ox 84 L 06/06/20 07:55 Intake & Output 06/05/20 06/06/20 06/06/20 18:59 06:59 18:59 Intake Total 300 Output Total 700 1150 Balance -700 -850 Intake: Oral 300 Output: Urine 700 1150 Other: Voiding Method Bedside Commode Bedside Commode Urinal Urinal # Bowel Movements 1 - Exam GENERAL: The patient is alert and oriented x3, not in any acute distress. Obese, currently on airvo at a flow rate of 36 with an FiO2 of 60, continue to wean as tolerated HEENT: Pupils are round and equally reacting to light. EOMI. No scleral icterus. No conjunctival pallor. Normocephalic, atraumatic. No pharyngeal erythema. No thyromegaly. CARDIOVASCULAR: S1 and S2 present. No murmurs, rubs, or gallops. PULMONARY: Diminished breath sounds bilaterally with no wheezing noted, coarse rhonchi noted bilaterally ABDOMEN: Soft, nontender, nondistended, normoactive bowel sounds. No palpable organomegaly. MUSCULOSKELETAL: No joint swelling or deformity. EXTREMITIES: No cyanosis, clubbing, or pedal edema. NEUROLOGICAL: Gross neurological examination did not reveal any focal deficits. Diffuse weakness SKIN: No rashes. - Labs CBC & Chem 7: 06/05/20 08:49 06/06/20 10:04 Labs: Abnormal Lab Results - Last 24 Hours (Table) 06/05/20 06/05/20 06/05/20 Range/Units 08:49 11:22 16:26 Sodium 135 L (137-145) mmol/L Potassium 5.2 H (3.5-5.1) mmol/L BUN 58 H (9-20) mg/dL Glucose 170 H (74-99) mg/dL POC Glucose (mg/dL) 297 H 319 H (75-99) mg/dL 06/05/20 06/06/20 Range/Units 20:05 07:08 Sodium (137-145) mmol/L Potassium (3.5-5.1) mmol/L BUN (9-20) mg/dL Glucose (74-99) mg/dL POC Glucose (mg/dL) 233 H 109 H (75-99) mg/dL Assessment and Plan Assessment: -acute hypoxic respiratory failure: Secondary to covid 19 pneumonia patient maintained on vitamin and zinc supplements. Patient currently on IV solu- Medrol. has received 2 doses of Tocilizumab and is continued on Lovenox. ,Patient currently on Airvo requiring increase in titration. Pulmonary following -Type 2 diabetes mellitus uncontrolled elevated blood sugars secondary to systemic steroids, continue with pre-meal, sliding scale, and long-acting, with adjustments made and will increase pre-male and long-acting doses -Hyperkalemia, improved continue with low potassium diet -Hypotonic hyponatremia, improved -Acute renal failure secondary to Covid 19: Improved, current creatinine is 1.22 -Hypertension -DVT subcutaneous Lovenox -Full code Plan: Continue with current medications. Will continue IV Solu-Medrol with vitamin and zinc supplements, and lovenox . patient has received Tocilizumab x2. Pulmonary following . Patient currently on airvo and requiring an increase in titration today. Very slow to respond. Current settings are flow rate of 50 and FiO2 of 70%. Continue with low potassium diet. Patient response to treatment is slow. Will continue to monitor closely. Prognosis remains guarded.
[2020-06-06 16:53] LABS: Glucose,Whole Blood 162 mg/dL (75-99)
--- NOTE | 2020-06-06 17:15 | P.PN ---
Subjective Progress Note Date: 06/06/20 Principal diagnosis: CoVID 19 pneumonia 80-year-old male, who was brought to the emergency department by EMS. The patient apparently has had 2 weeks' worth of increasing shortness of breath, and significant fatigue. The patient also had chest congestion. He had a fever. The patient states that he is just not been feeling well and getting progressively worse. He also apparently had an episode or 2 of diarrhea. The patient denied any chest pain or chest pressure or palpitations. The patient also denied nausea, vomiting, and abdominal pain. Apparently when EMS arrived, the patient's saturations were in the low 80s on room air. For that reason, he was transported in, evaluated, and admitted with a diagnosis of COVID 19 19 pneumonia. The patient does have a history of diabetes, hypertension, and a previous pacemaker insertion. White count was 4.6, hemoglobin 12.5, hematocrit 37.1, and platelet count 153,000. PT, INR, and PTT were all normal. D-dimer was 0.77. Sodium 136, potassium 4.5, chlorides 102, CO2 26, anion gap 8, BUN 47, and creatinine 1.63. Ferritin was 985, LDH 818, C-reactive protein 58, and pro-calcitonin level was 0.12. Chest x-ray did show some interstitial infiltrates. On 05/22/2020 patient seen in follow-up on medical floor. he is on 2 L of oxygen his pulse ox is 90-94%, breathing comfortably, no fever or chills, blood pressure has been stable. Denies any worsening dyspnea or hypoxemia, he has a mild cough, no chest discomfort. He continues on oral Decadron 6 mg daily, IV hydration, vitamins, d-dimer was low at 0.77, patient is on subcu heparin for DVT prophylaxis, pro-calcitonin level was low, inflammatory markers were not significantly elevated on admission. Clinically symptoms have not progressed, and patient will be considered for discharge in next 24 hours. The patient is seen today 05/23/2020 in follow-up on the regular medical floor. He is currently sitting up in chair at the bedside. Awake and alert in no acute distress. Continue O2 saturations in the low 90s on 2 L/m per nasal cannula. Afebrile. Hemodynamically stable. Blood cultures reveal no growth. Blood glucose 202. Sodium 143. Potassium 5.5. Creatinine 1.19. He remains on dexamethasone, so continues heparin, vitamin supplements. Chest x-ray continues to show bilateral multifocal opacities consistent with CoVID infection. No neri ge. The patient is seen today 05/24/2020 in follow-up on the regular medical floor. He is currently resting comfortably in bed. Awake and alert in no acute distress. He is maintaining O2 saturations in the 90s on 2 L/m per nasal cannula. He's been on dexamethasone, vitamin supplements, subcutaneous heparin. No worsening shortness of breath, cough or congestion. D-dimer 1.02. Sodium 145. Potassium 5.1. Creatinine 1.3. LDH 485. C-reactive protein 4.4. The patient is seen today 05/25/2020 in follow-up on the regular medical floor. He is currently resting quite comfortably in bed. Maintaining O2 saturations in the low 90s on 2 L/m per nasal cannula. Sodium 144. Potassium 4.7. Creatinine 1.2. Glucose 173. He remains on dexamethasone, heparin, vitamin supplements. 05/26/2020 on seeing the patient for a follow-up regarding the patient's acute hypoxic respiratory failure due to Covid 19 related pneumonia. The patient was not a candidate for Remdesivir, Tocilizumab or convalescent plasma, and the patient is currently on Decadron 6 mg on a daily basis and addition to Levemir insulin 50 units daily at bedtime and NovoLog 6 units 3 times a day with meals and a sliding scale coverage. The patient was on 2 L about 2 by nasal cannula with pulse ox of 93%. Earlier this morning, the patient's oxidation progressively got worse in the patient is currently on 100% nonrebreather facemask maintaining a saturation above 90% at around 94%. Overall, the patient is doing well. Creatinine is at 1.2. The patient had a CRP level of 4.4 with an LDH level of 485 from 05/24/2020. Inflammatory markers are being monitored. Last d-dimer from 05/24/2020 was 1.02. Blood cultures were negative repeat chest x-ray was done today and the findings are essentially stable and the pat ient has patchy bilateral perihilar pulmonary infiltrates without any significant interval change. D-dimer from today is at 1.7 and the patient remains on Lovenox. 05/27/2020 the patient is being seen for a follow-up. The patient is currently on high flow oxygen at 6 L. Note that the patient was on 100% nonrebreather facemask and was switched him to a high flow oxygen yesterday at 60 L. As part of his treatment, the patient received steroids and currently is receiving dexamethasone 6 mg by mouth daily. He is also Toci 2 yesterday and today. He completed treatment without any major side effects. Note that the patient was on low-flow oxygen and he progressively got worse requiring 100% nonrebreather and subsequent high flow oxygen. On today's evaluation, his white cell count is at 10. His d-dimer is at 1.6. Rest of the inflammatory markers have not been checked and this will be repeated tomorrow. LDH from yesterday was 491 with a CRP of 9.4. Otherwise, his renal function shows a stable creatinine of 1.2. The patient has been on FiO2 of 60% with a high flow oxygen of 60 L and the patient has been essentially stable since yesterday. No other significant events. Remains on Lovenox 40 mg subcu on a daily basis. 05/28/2020, the patient is still on high flow oxygen and 60 L. He is not utilizing the 100% nonrebreather facemask this morning. Note that the patient has received steroids, and he remains on Decadron 6 mg by mouth daily. He also completed Tocilizumab. On today's evaluation, chest x-ray findings are stable without any interval change in the bilateral pulmonary infiltrates. The patient is resting comfortably in bed. He is also able to move on a recliner. Labs today shows an LDH of 414 and a CRP of 2.9 and the patient is d-dimer is at 2.56. The patient remains on Lovenox 40 mg subcu on a daily basis. He is on Levemir insulin 50 units daily along with NovoLog 6 units with meals plus a sliding coverage. I will say his condition essentially the same as unchanged compared to yesterday. He is not doing much in progress for now. On today's evaluation of 05/29/2020 the patient is being seen for a follow-up. The patient remains on high flow oxygen with a flow of 6 L an FiO2 of 60%. His current pulse ox is around 88%. He is afebrile. He is doing well. Sitting up on a chair. No signs of any respiratory distress. His breathing is nonlabored and he doesn't have any significant cough unless he takes a deep inspiration. The patient had follow-up blood work today. His LDL level is up 1221 and a CRP level is up to 12.6 and his d-dimer currently is at 2.95. I cannot explain the rise in these inflammatory markers. His creatinine is at 1.2. Was a causative 13.7 with a hemoglobin of 13.2. His chest x-ray from yesterday was showing right basilar infiltrates which are nonspecific and it was mentioned that he was getting worse. The patient remains on Decadron 6 mg by mouth daily. He remains on 50 units of Levemir insulin along with 6 units of NovoLog [id number]. He remains on aspirin. He remains on Lovenox for DVT prophylaxis 40 mg subcu. 05/30/2020 the patient is on high flow oxygen at 60 L with an FiO2 of 70%. His pulse ox was around 93%. He feels well. No altered mentation. Resting comfortably. Sitting up and he has no significant shortness of breath at rest. His chest x-ray still showing diffuse bilateral pulmonary infiltrates, peripheral distribution, probably slightly worse compared to yesterday. However, the radiologist reports is stating that the findings are essentially stable. Clinically he is also stable. The labs from today shows a sugar of 407 is quite high and a d-dimer is down to 1.89 and the patient's LDH level is down to 419 with a CRP level of 0.7. The patient remains on Levemir insulin and is currently taking 50 units along with 6 units with meals of NovoLog. 05/31/2020 the patient remains on high flow at 60 L with an FiO2 of 70% which is essentially the same as yesterday. His pulse ox currently is around 93%. His chest x-ray from today is showing diffuse bilateral pulmonary infiltrates, peripheral distribution, I thought his chest x-ray and probably the x-ray findings are improved compared to yesterday's chest x-ray. I have the patient on Solu-Medrol 60 mg every 6 hours. He is also on anticoagulation. He is receiving Lovenox.. His d-dimer is at 1.57 on today's evaluation. His LDH level is high today at 1059 with a CRP of less than 5. He remains on Levemir insulin 50 units along with 6 units of NovoLog with meals and his blood sugars under adequate control for now. He has no other complaints otherwise. Note that initially the patient was started on Decadron and during the course of his treatment he was given Toci 06/01/2020, the patient is on high flow oxygen at 60 L along with an FiO2 of 70%. Pulse ox is in order of 96%. I'm hoping to get down the FiO2 further today. The patient is on IV Solu-Medrol. He is on long-term anticoagulation. He is receiving Lovenox at a dose of 40 mg subcu on a daily basis. In terms of inflammatory markers and blood work, the patient's CRP is less than 0.4 and the LDH level is at 378. The chest x-ray was done yesterday showed some lower lobe active pulmonary infiltrates, findings are unchanged. The patient is awake and alert and following commands and answering questions. He is on Levemir insulin as a dose of 60 daily at bedtime and he is also on NovoLog 10 units with meals and a sliding scale coverage. He has completed tocilizumab The patient is seen today 06/02/2020 in follow-up on the regular medical floor. He is currently sitting up in a chair at the bedside. Awake and alert in no acute distress. He remains on AirVo high flow oxygen at 40 L and 70% FiO2. He is afebrile. White count 18.6. Hemoglobin 13.2. D-dimer 1.6. Sodium 136. Potassium 6.1. Creatinine 1.2. LDH 503. C-reactive protein less than 0.4. Remains on Lovenox, IV Soluj Medrol, vitamin supplements. The patient is seen today 06/03/2020 in follow-up on the regular medical floor. Currently sitting up in a chair at the bedside. Awake and alert in no acute distress. He remains on AirVo high flow oxygen at 40 L and 60% FiO2 to maintain O2 saturations at 88%. Sodium 137. Potassium 5.6. Creatinine 1.3. Glucose 271. Remains on IV Solu-Medrol, Lovenox, vitamin supplements. Levemir and NovoLog sliding scale. Patient is seen today 06/04/2020 in follow-up on the regular medical floor. He is currently sitting up in a chair at the bedside. Awake, alert in no acute distress. Feeling a bit better today compared to yesterday. He is still on AirVo high flow oxygen at 35 L and 65% FiO2 and maintaining O2 saturations at 94%. He remains on IV Solu-Medrol, Lovenox, vitamin supplements. Chest x-ray continues to show patchy bilateral infiltrates similar to previous. The patient is seen today 06/05/2020 in follow-up on the regular medical floor. He is currently resting in bed. Awake and alert in no acute distress. Still requiring AirVo high flow oxygen at 30 L and 60% FiO2. Chest x-ray remains stable. Lung sounds but are clearing. He is feeling better today compared to yesterday. Afebrile. White count 15.4. Hemoglobin 14.2. Sodium 135. Potassium 5.2. Creatinine 1.12. He remains on Lovenox, Solu-Medrol, vitamin supplements. The patient is seen today 06/06/2020 in follow-up on the regular medical floor. He is currently resting comfortably in bed. Awake and alert in no acute distress. He has been slow to progress. He remains on AirVo high flow oxygen at 50L and 90% FiO2 to maintain O2 saturations in the upper 80s lower 90s. Continue basilar crackles left greater than right. Chest x-ray continues to show patchy bilateral airspace disease slightly increase in the mid and lower lung waller. D-dimer 1.58. Sodium 137. Potassium 4.7. Creatinine 1.22. Rem ains on IV Solu-Medrol, Lovenox, vitamin supplements. Objective - Vital Signs Vital signs: Vital Signs Temp 98.3 F 06/06/20 14:00 Pulse 87 06/06/20 14:00 Resp 22 06/06/20 14:00 BP 176/80 06/06/20 14:00 Pulse Ox 94 L 06/06/20 15:31 Intake & Output 06/05/20 06/06/20 06/06/20 18:59 06:59 18:59 Intake Total 300 Output Total 700 1150 Balance -700 -850 Intake: Oral 300 Output: Urine 700 1150 Other: Voiding Method Bedside Commode Bedside Commode Urinal Urinal # Bowel Movements 1 - Exam GENERAL EXAM: Alert, pleasant, 80-year-old male patient, on AirVo high flow oxygen at 50 L and 90% FiO2 comfortable in no apparent distress. HEAD: Normocephalic/atraumatic. EYES: Normal reaction of pupils, equal size. Conjunctiva pink, sclera white. NOSE: Clear with pink turbinates. THROAT: No erythema or exudates. NECK: No masses, no JVD, no thyroid enlargement, no adenopathy. CHEST: No chest wall deformity. Symmetrical expansion. LUNGS: Equal air entry with bibasilar coarse crackles CVS: Regular rate and rhythm, normal S1 and S2, no gallops, no murmurs, no rubs ABDOMEN: Soft, nontender. No hepatosplenomegaly, normal bowel sounds, no guarding or rigidity. EXTREMITIES: No clubbing, no edema, no cyanosis, 2+ pulses and upper and lower extremities. MUSCULOSKELETAL: Muscle strength and tone normal. SPINE: No scoliosis or deformity SKIN: No rashes CENTRAL NERVOUS SYSTEM: No focal deficits, tone is normal in all 4 extremities. PSYCHIATRIC: Alert and oriented -3. Appropriate affect. Intact judgment and insight. - Labs CBC & Chem 7: 06/05/20 08:49 06/06/20 10:04 Labs: Abnormal Lab Results - Last 24 Hours (Table) 06/05/20 06/06/20 06/06/20 Range/Units 20:05 07:08 10:04 D-Dimer (<0.60) mg/L FEU Carbon Dioxide 31 H (22-30) mmol/L BUN 54 H (9-20) mg/dL Glucose 133 H (74-99) mg/dL POC Glucose (mg/dL) 233 H 109 H (75-99) mg/dL Calcium 8.2 L (8.4-10.2) mg/dL 06/06/20 06/06/20 06/06/20 Range/Units 10:04 11:16 16:49 D-Dimer 1.58 H (<0.60) mg/L FEU Carbon Dioxide (22-30) mmol/L BUN (9-20) mg/dL Glucose (74-99) mg/dL POC Glucose (mg/dL) 136 H 162 H (75-99) mg/dL Calcium (8.4-10.2) mg/dL Assessment and Plan Assessment: 1 Acute hypoxic respiratory failure secondary to CoVID 19 pneumonia, he did receive Tocilizumab 2 History of diabetes mellitus type 2 3 History of hypertension 4 History of chronic sinus disease 5 History of diverticulitis, status post bowel resection 6 Hyperkalemia Plan: The patient was seen and evaluated by Dr. Sidhu He has been slow to progress Chest x-ray and labs reviewed Oxygen requirements waxing and waning. Currently at 50 L and 90% FiO2 via AirVo Titrate the FiO2 as tolerated Continue the current treatment plan We will continue to follow I, the cosigning physician, performed a history & physical examination of the patient. Lungs sounds crackles in the bilateral posterior bases. Maintaining good O2 saturations in the 90s on AirVo high flow oxygen at 50 L and 90% FiO2. I discussed the assessment and plan of care with my nurse practitioner, Krupa Alarcon. I attest to the above note as dictated by her.
[2020-06-06 20:01] LABS: Glucose,Whole Blood 141 mg/dL (75-99)
[2020-06-06] MEDS: INSULIN DETEMIR (LEVEMIR) 100 UNIT/ML SYR SQ SCH (20:22)
[2020-06-07 06:58] LABS: Glucose,Whole Blood 159 mg/dL (75-99)
[2020-06-07] MEDS: METOPROLOL SUCCINATE (ER) 50 MG TAB.ER.24H PO SCH (07:32)
[2020-06-07] MEDS: FAMOTIDINE 20 MG TAB PO SCH (07:32)
[2020-06-07] MEDS: PIOGLITAZONE 30 MG TAB PO SCH (07:32)
[2020-06-07] MEDS: glipiZIDE 10 MG TAB PO SCH ×2 (07:32→21:24)
[2020-06-07] MEDS: methylPREDNISolone SOD SUCCI 125 MG/2 ML VIAL IV SCH ×2 (07:32→17:22)
[2020-06-07] MEDS: CLOPIDOGREL 75 MG TAB PO SCH (07:32)
[2020-06-07] MEDS: ASPIRIN 81 MG PO SCH (07:32)
[2020-06-07] MEDS: ENOXAPARIN 40 MG/0.4 ML SYRINGE SQ SCH (07:33)
[2020-06-07] MEDS: ASCORBIC ACID 500 MG TAB PO SCH (07:33)
[2020-06-07] MEDS: INSULIN ASPART (NovoLOG) 100 UNIT/ML VIAL SQ SCH ×7 (07:33→21:25)
[2020-06-07] MEDS: ATORVASTATIN 80 MG TAB PO SCH (07:33)
[2020-06-07] MEDS: ZINC SULFATE 220 MG CAP PO SCH (07:33)
[2020-06-07 11:22] LABS: Basophils # (A) 0.01 X 10*3/uL (0.00-0.10); Basophils % (A) 0.1 %; Eosinophils # (A) 0 X 10*3/uL (0.04-0.35); Eosinophils % (A) 0 %; HCT 35.2 % (39.6-50.0); HGB 11.2 g/dL (13.0-17.0); Lymphocytes # (A) 1.34 X 10*3/uL (0.90-5.00); Lymphocytes % (A) 10.2 %; MCH 30.4 pg (27.0-32.0); MCHC 31.8 g/dL (32.0-37.0); MCV 95.4 fL (80.0-97.0); Mean Platelet Volume 11.7 fL (9.5-12.2); Monocytes # (A) 1.01 X 10*3/uL (0.20-1.00); Monocytes % (A) 7.7 %; Neutrophils # (A) 10.63 X 10*3/uL (1.80-7.70); Neutrophils % (A) 81.1 %; Platelet Count 202 X 10*3/uL (140-440); RBC 3.69 X 10*6/uL (4.40-5.60); WBC 13.11 X 10*3/uL (4.50-10.00)
[2020-06-07 11:35] LABS: Glucose,Whole Blood 232 mg/dL (75-99)
[2020-06-07 12:41] LABS: African American GFR (CKD) 72.6 (60.0-200.0); Anion Gap 0.6 mmol/L (4.00-12.00); BUN/Creat Ratio 51.82 Ratio (12.00-20.00); Calcium 7.7 mg/dL (8.7-10.3); Carbon Dioxide 27.4 mmol/L (21.6-31.8); Non-African American GFR(CKD) 62.6 (60.0-200.0); Potassium 5.3 mmol/L (3.5-5.5)
--- NOTE | 2020-06-07 15:41 | P.PN ---
Subjective 80-year-old male who presents emergency Department stating that he has had shortness of breath and feeling fatigued for at least 2 weeks. Patient states he has had exposure to COVID . Patient states he has had a fever. Patient states she's also states and smile. Patient also states she's had diarrhea. Patient denies any chest pain or palpitations. Patient denies any abdominal pain patient denies nausea vomiting diarrhea. According to EMS with the patient was coming in he was satting in the low 80s. Patient is currently on a few liters of oxygen and sat in mid 90s. Patient is a diabetic and has high blood pressure. Patient also has a pacemaker. Patient is presently on 2 L of oxygen was requiring 4 L yesterday. Patient was started on IV fluids patient creatinine went up to 1.6 baseline is around 1. Patient's blood sugars are highly elevated. Patient tests positive for Covid. 05/22/2020 Patient is presently on 2 L of oxygen appears to be doing better possibility of discharge tomorrow. Creatinine went up a bit to 1.6 baseline is around the 1. Patient was started on IV fluids will recheck the basic metabolic profile to merari. 05/23/2020 Patient seen and evaluated in follow-up continues to be on 2 L of oxygen and bec omes dyspneic with exertion. Patient states he does not know wear oxygen at home. Pulmonary is following. Patient's blood sugars are elevated and will continue sliding scale at this time as patient is on steroids. Potassium was found to be slightly elevated at 5.5 and was given a dose of Kayexalate. Will repeat a.m. labs. Instructed and encouraged the patient to get up and increase activity as tolerated. 05/24/2020 Patient is presently in 2 does of hours and doing clinically well. Patient is on dexamethasone, vitamin supplements, subcutaneous heparin. No worsening shortness of breath, cough or congestion. D-dimer 1.02. Sodium 145. Potassium 5.1. Creatinine 1.3. LDH 485. C-reactive protein 4.4. His creatinine actually went up a little bit from 1.19-1.3 05/25/2020 Patient is fairly stable no significant improvement or worsening. Patient is still on 2 L of oxygen. We'll monitor him 1 more night. Continues to require oxygen patient probably can be discharged on 2 L tomorrow this can be tapered or discontinued as an outpatient. Patient d-dimer is bit worse compared to admission. Although other inflammatory markers are better 05/26/2020 Patient is seen this morning currently on nonrebreather and airvo as his oxygen was found to be 89% on 6 L of oxygen. Pulmonary is following. D-dimer has gone up at 1.70 along with lactate dehydrogenase at 491 and CRP is 9.4. Blood sugars continue to be elevated and patient is maintained on sliding scale along with long-acting and pre-meal insulin and will continue at this time. Patient continues on vitamin and zinc supplements along with Lovenox and dexamethasone daily. Patient is scheduled to receive Tocilizumab today. Will continue to monitor closely based on the clinical course of the patient. Patient continues to be weak and was seen and evaluated by physical therapy recommending subacute rehab and patient is now agreeable and a social work consult was placed. 05/27/2020 Patient is seen and evaluated this morning with no improvement in respiratory status. Patient remains on Airvo with supplemental nonrebreather. Patient is day 2 of receiving Tocilizumab. Will repeat a.m. chest x-ray along with i nflammatory markers. D-dimer today was 1.60. White blood count has gone up in is 10.8, hemoglobin is 12.6. Patient is afebrile. To continue with dexamethasone, Lovenox, vitamin C and zinc supplements. Pulmonary is following. Had a discussion with the patient about CODE STATUS along with his son Mauricio and currently wish to remain a full code until talking with family member more extensively about the situation. Will continue to monitor closely. Prognosis remains guarded. 05/28/2020 Patient is seen this morning status post getting up to the bathroom and continues to be extremely dyspneic with any exertion and was found to be low 80s to 83% oxygenation. Patient continues on the airvo with a flow rate of 60 and FiO2 of 64 and is currently 91%. Patient denies any chest pain or palpitations. Patient is afebrile. Patient reports to tolerating diet with no nausea or vomiting noted. D-dimer continues to be elevated at 2.56, sodium today is 140 with a potassium of 5.1 and creatinine is 1.2. Blood sugars on the lower side this morning and will continue to monitor closely and treat accordingly with sliding scale. Inflammatory markers trending down. Pulmonary following closely. Chest x-ray today shows continued bibasilar infiltrates which are nonspecific but worsening. 05/29/2020 Patient is seen in follow-up this morning and continues to be on Airvo no significant change. Patient was on dexamethasone all being transitioned to IV Solu-Medrol and will continue with Accu-Cheks and close glycemic control with pre-meal, long-acting, and sliding scale. White blood count is 13.9, hemoglobin is stable at 13.2, d-dimer is 2.95, sodium is 137, potassium is 5.1, creatinine slightly elevated at 1.24. Inflammatory markers have gone up. Patient is sitting up in the chair and denies any chest pain or worsening shortness of breath. Patient states he feels he is about the same. Patient also states he has been sleeping a lot and tolerating diet with no reports of nausea or vomiting. Discussed with patient about increasing activity as tolerated although patient is extremely dyspneic with minimal exertion. 05/30/2020 Patient is seen and evaluated this morning and follow-up with no acute overnight issues. Patient continues to be on Airvo with a flow rate of 60 and FiO2 of 70 and is being closely monitored. Transitioned to IV Solu-Medrol and will continue at this time. Blood sugars elevated and increasing long-acting and pre-meal insulins and will continue sliding scale along with oral antidiabetic agents. Need tighter glycemic control. Patient has been eating 100% of all meals with no reports of nausea or vomiting noted. Patient clinically looking better and chest x-ray displays stable infiltrates. D-dimer slightly trending down along with inflammatory markers. Creatinine is stable at 1.2 and potassium is 5.5. Will continue to monitor vital signs and labs closely. On 05/31/2020 -patient is seen and examined at the bedside. He is sitting up in the chair and is on Airvo 60 L with FiO2 of 70%, saturating about 90%. He still complains of exertional dyspnea and cough at times. Denies having any fevers chills or rigors. He complains of generalized weakness. On reviewing his vitals temperature of 97.9, heart rate 63, respiratory rate 18, blood pressure 120 x 62 . On reviewing his labs white count of 22.9, hemoglobin 13, platelets 299. Sodium 136, potassium 5.6, chloride 104, bicarb 26, BUN 55, creatinine 1.15. Blood sugars running on the higher side around 300s. Patient had a chest x-ray done this morning showing mild to moderate mid and lower zone infiltrates. On 06/01/2020 -patient is seen and examined at bedside. He is sitting up in a chair at fifth high flow oxygen at 60 L FiO2 of 70% and pulse ox at 94%. He is still having exertional dyspnea and complains of generalized weakness. He states that he is tired of using the oxygen. On reviewing the vitals T-max of 97.9, heart rate 60, respiratory 19, blood pressure 130/60. Reviewing the labs LDH 378, CRP less than 0.04 and D-dimer of 1.53. All medications have been reviewed and pertinent changes made. 06/02/2020 Patient is seen and evaluated this morning with no acute overnight issues. Patient continues to sit up in the chair throughout most of the day as he states his breathing is better. Patient continues to be on Airvo and flow rate has been decreased to 40 with an FiO2 of 70% and is currently 92%. Patient continues to have dyspnea with minimal exertion and continues to have weakness and will likely require some form rehab once stabilized and discharged. PT/OT to continue to follow. White blood count trending down at 18.64 and hemoglobin is stable at 13.2. D-dimer is 1.60 with a sodium of 136 and potassium was found to be 6.1 and being corrected and will repeat a.m. labs. Creatinine is 1.2. Blood sugars continue to be elevated and will continue with sliding scale and long-acting and monitor closely. LDH trending back up at 503 and will monitor closely. CRP is 0.4. 06/03/2020 Patient's potassium is still high received the calcium gluconate and insulin as today. Will order capsulate. This is nonhemolyzed sample patient was started on low potassium diet. Patient remains on Airvo , 40 L and 60% FiO2 which is better compared to yesterday and saturating better appears to have been some improvement. 06/08/2020 Patient's overall respiratory status remains the patient is oxygen flow rate of 40 L with FiO2 of 60% may be a mild improvement but saturations are going down again. Patient is already on low potassium diet not an ALE inhibitor potassium supplementation will repeat basic metabolic profile again tomorrow. Patient is not on any IV fluids is eating well. Constitutional: Reports fatigue although slightly more awake today, denied any fever. Cardio vascular: denied any chest pain, palpitations Gastrointestinal denied any nausea vomiting Pulmonary: No shortness of breath today Neurologic reports generalized weakness All inpatient medications were reviewed and appropriate changes in these medications as dictated in the interval history and assessment and plan. Creatinine improved but potassium is high Objective - Vital Signs Vital signs: Vital Signs Temp 97.9 F 06/07/20 14:00 Pulse 60 06/07/20 14:00 Resp 19 06/07/20 14:00 BP 97/68 06/07/20 14:00 Pulse Ox 91 L 06/07/20 14:00 Intake & Output 06/06/20 06/07/20 06/07/20 18:59 06:59 18:59 Output Total 525 Balance -525 Weight 136.078 kg Output: Urine 525 Other: Voiding Method Bedside Commode Urinal # Voids 2 - Exam - Exam GENERAL: The patient is alert and oriented x3, not in any acute distress. Obese, currently on airvo at a flow rate of 40 with an FiO2 of 70, continue to wean as tolerated HEENT: Pupils are round and equally reacting to light. EOMI. No scleral icterus. No conjunctival pallor. Normocephalic, atraumatic. No pharyngeal erythema. No thyromegaly. CARDIOVASCULAR: S1 and S2 present. No murmurs, rubs, or gallops. PULMONARY: Diminished breath sounds bilaterally with no wheezing or rhonchi noted ABDOMEN: Soft, nontender, nondistended, normoactive bowel sounds. No palpable organomegaly. MUSCULOSKELETAL: No joint swelling or deformity. EXTREMITIES: No cyanosis, clubbing, or pedal edema. NEUROLOGICAL: Gross neurological examination did not reveal any focal deficits. SKIN: No rashes. - Labs CBC & Chem 7: 06/07/20 07:13 06/07/20 07:13 Labs: Abnormal Lab Results - Last 24 Hours (Table) 06/06/20 06/06/20 06/07/20 Range/Units 16:49 19:59 06:54 WBC (4.50-10.00) X 10*3/uL RBC (4.40-5.60) X 10*6/uL Hgb (13.0-17.0) g/dL Hct (39.6-50.0) % MCHC (32.0-37.0) g/dL Immature Gran # (0.00-0.04) X 10*3/uL Neutrophils # (1.80-7.70) X 10*3/uL Monocytes # (0.20-1.00) X 10*3/uL Eosinophils # (0.04-0.35) X 10*3/uL Anion Gap (4.00-12.00) mmol/L BUN (9.0-27.0) mg/dL BUN/Creatinine Ratio (12.00-20.00) Ratio Glucose (70-110) mg/dL POC Glucose (mg/dL) 162 H 141 H 159 H (75-99) mg/dL Calcium (8.7-10.3) mg/dL 06/07/20 06/07/20 06/07/20 Range/Units 07:13 07:13 11:34 WBC 13.11 H (4.50-10.00) X 10*3/uL RBC 3.69 L (4.40-5.60) X 10*6/uL Hgb 11.2 L (13.0-17.0) g/dL Hct 35.2 L (39.6-50.0) % MCHC 31.8 L (32.0-37.0) g/dL Immature Gran # 0.12 H (0.00-0.04) X 10*3/uL Neutrophils # 10.63 H (1.80-7.70) X 10*3/uL Monocytes # 1.01 H (0.20-1.00) X 10*3/uL Eosinophils # 0 L (0.04-0.35) X 10*3/uL Anion Gap 0.60 L (4.00-12.00) mmol/L BUN 57.0 H (9.0-27.0) mg/dL BUN/Creatinine Ratio 51.82 H (12.00-20.00) Ratio Glucose 164 H (70-110) mg/dL POC Glucose (mg/dL) 232 H (75-99) mg/dL Calcium 7.7 L (8.7-10.3) mg/dL Assessment and Plan Plan: -acute hypoxic respiratory failure: Secondary to covid 19 pneumonia patient maintained on vitamin and zinc supplements. Patient currently on IV solu- Medrol. has received 2 doses of Tocilizumab and is continued on Lovenox. inflammatory markers ,Patient currently on Airvo. Pulmonary following -Type 2 diabetes mellitus uncontrolled elevated blood sugars secondary to systemic steroids, continue with pre-meal, sliding scale, and long-acting, with adjustments made and will increase pre-male and long-acting doses -Hyperkalemia, improved -Hypotonic hyponatremia, improved -Acute renal failure secondary to Covid 19: Improved, current creatinine is 1.2 -Hypertension -DVT subcutaneous Lovenox -Full code Plan: Continue with current medications. Will continue IV Solu-Medrol with vitamin and zinc supplements, and lovenox . patient has received Tocilizumab. Pulmonary following . Patient currently on airvo and slowly weaning as tolerated. PT/OT following and patient may likely require ECF for continued PT/OT therapy due to weakness once stabilized and discharged. Patient response to treatment is slow. Will continue to monitor closely. Prognosis remains guarded.
--- NOTE | 2020-06-07 15:44 | P.PN ---
Subjective Progress Note Date: 06/07/20 Principal diagnosis: CoVID 19 pneumonia 80-year-old male, who was brought to the emergency department by EMS. The patient apparently has had 2 weeks' worth of increasing shortness of breath, and significant fatigue. The patient also had chest congestion. He had a fever. The patient states that he is just not been feeling well and getting progressively worse. He also apparently had an episode or 2 of diarrhea. The patient denied any chest pain or chest pressure or palpitations. The patient also denied nausea, vomiting, and abdominal pain. Apparently when EMS arrived, the patient's saturations were in the low 80s on room air. For that reason, he was transported in, evaluated, and admitted with a diagnosis of COVID 19 19 pneumonia. The patient does have a history of diabetes, hypertension, and a previous pacemaker insertion. White count was 4.6, hemoglobin 12.5, hematocrit 37.1, and platelet count 153,000. PT, INR, and PTT were all normal. D-dimer was 0.77. Sodium 136, potassium 4.5, chlorides 102, CO2 26, anion gap 8, BUN 47, and creatinine 1.63. Ferritin was 985, LDH 818, C-reactive protein 58, and pro-calcitonin level was 0.12. Chest x-ray did show some interstitial infiltrates. On 05/22/2020 patient seen in follow-up on medical floor. he is on 2 L of oxygen his pulse ox is 90-94%, breathing comfortably, no fever or chills, blood pressure has been stable. Denies any worsening dyspnea or hypoxemia, he has a mild cough, no chest discomfort. He continues on oral Decadron 6 mg daily, IV hydration, vitamins, d-dimer was low at 0.77, patient is on subcu heparin for DVT prophylaxis, pro-calcitonin level was low, inflammatory markers were not significantly elevated on admission. Clinically symptoms have not progressed, and patient will be considered for discharge in next 24 hours. The patient is seen today 05/23/2020 in follow-up on the regular medical floor. He is currently sitting up in chair at the bedside. Awake and alert in no acute distress. Continue O2 saturations in the low 90s on 2 L/m per nasal cannula. Afebrile. Hemodynamically stable. Blood cultures reveal no growth. Blood glucose 202. Sodium 143. Potassium 5.5. Creatinine 1.19. He remains on dexamethasone, so continues heparin, vitamin supplements. Chest x-ray continues to show bilateral multifocal opacities consistent with CoVID infection. No neri ge. The patient is seen today 05/24/2020 in follow-up on the regular medical floor. He is currently resting comfortably in bed. Awake and alert in no acute distress. He is maintaining O2 saturations in the 90s on 2 L/m per nasal cannula. He's been on dexamethasone, vitamin supplements, subcutaneous heparin. No worsening shortness of breath, cough or congestion. D-dimer 1.02. Sodium 145. Potassium 5.1. Creatinine 1.3. LDH 485. C-reactive protein 4.4. The patient is seen today 05/25/2020 in follow-up on the regular medical floor. He is currently resting quite comfortably in bed. Maintaining O2 saturations in the low 90s on 2 L/m per nasal cannula. Sodium 144. Potassium 4.7. Creatinine 1.2. Glucose 173. He remains on dexamethasone, heparin, vitamin supplements. 05/26/2020 on seeing the patient for a follow-up regarding the patient's acute hypoxic respiratory failure due to Covid 19 related pneumonia. The patient was not a candidate for Remdesivir, Tocilizumab or convalescent plasma, and the patient is currently on Decadron 6 mg on a daily basis and addition to Levemir insulin 50 units daily at bedtime and NovoLog 6 units 3 times a day with meals and a sliding scale coverage. The patient was on 2 L about 2 by nasal cannula with pulse ox of 93%. Earlier this morning, the patient's oxidation progressively got worse in the patient is currently on 100% nonrebreather facemask maintaining a saturation above 90% at around 94%. Overall, the patient is doing well. Creatinine is at 1.2. The patient had a CRP level of 4.4 with an LDH level of 485 from 05/24/2020. Inflammatory markers are being monitored. Last d-dimer from 05/24/2020 was 1.02. Blood cultures were negative repeat chest x-ray was done today and the findings are essentially stable and the pat ient has patchy bilateral perihilar pulmonary infiltrates without any significant interval change. D-dimer from today is at 1.7 and the patient remains on Lovenox. 05/27/2020 the patient is being seen for a follow-up. The patient is currently on high flow oxygen at 6 L. Note that the patient was on 100% nonrebreather facemask and was switched him to a high flow oxygen yesterday at 60 L. As part of his treatment, the patient received steroids and currently is receiving dexamethasone 6 mg by mouth daily. He is also Toci 2 yesterday and today. He completed treatment without any major side effects. Note that the patient was on low-flow oxygen and he progressively got worse requiring 100% nonrebreather and subsequent high flow oxygen. On today's evaluation, his white cell count is at 10. His d-dimer is at 1.6. Rest of the inflammatory markers have not been checked and this will be repeated tomorrow. LDH from yesterday was 491 with a CRP of 9.4. Otherwise, his renal function shows a stable creatinine of 1.2. The patient has been on FiO2 of 60% with a high flow oxygen of 60 L and the patient has been essentially stable since yesterday. No other significant events. Remains on Lovenox 40 mg subcu on a daily basis. 05/28/2020, the patient is still on high flow oxygen and 60 L. He is not utilizing the 100% nonrebreather facemask this morning. Note that the patient has received steroids, and he remains on Decadron 6 mg by mouth daily. He also completed Tocilizumab. On today's evaluation, chest x-ray findings are stable without any interval change in the bilateral pulmonary infiltrates. The patient is resting comfortably in bed. He is also able to move on a recliner. Labs today shows an LDH of 414 and a CRP of 2.9 and the patient is d-dimer is at 2.56. The patient remains on Lovenox 40 mg subcu on a daily basis. He is on Levemir insulin 50 units daily along with NovoLog 6 units with meals plus a sliding coverage. I will say his condition essentially the same as unchanged compared to yesterday. He is not doing much in progress for now. On today's evaluation of 05/29/2020 the patient is being seen for a follow-up. The patient remains on high flow oxygen with a flow of 6 L an FiO2 of 60%. His current pulse ox is around 88%. He is afebrile. He is doing well. Sitting up on a chair. No signs of any respiratory distress. His breathing is nonlabored and he doesn't have any significant cough unless he takes a deep inspiration. The patient had follow-up blood work today. His LDL level is up 1221 and a CRP level is up to 12.6 and his d-dimer currently is at 2.95. I cannot explain the rise in these inflammatory markers. His creatinine is at 1.2. Was a causative 13.7 with a hemoglobin of 13.2. His chest x-ray from yesterday was showing right basilar infiltrates which are nonspecific and it was mentioned that he was getting worse. The patient remains on Decadron 6 mg by mouth daily. He remains on 50 units of Levemir insulin along with 6 units of NovoLog [id number]. He remains on aspirin. He remains on Lovenox for DVT prophylaxis 40 mg subcu. 05/30/2020 the patient is on high flow oxygen at 60 L with an FiO2 of 70%. His pulse ox was around 93%. He feels well. No altered mentation. Resting comfortably. Sitting up and he has no significant shortness of breath at rest. His chest x-ray still showing diffuse bilateral pulmonary infiltrates, peripheral distribution, probably slightly worse compared to yesterday. However, the radiologist reports is stating that the findings are essentially stable. Clinically he is also stable. The labs from today shows a sugar of 407 is quite high and a d-dimer is down to 1.89 and the patient's LDH level is down to 419 with a CRP level of 0.7. The patient remains on Levemir insulin and is currently taking 50 units along with 6 units with meals of NovoLog. 05/31/2020 the patient remains on high flow at 60 L with an FiO2 of 70% which is essentially the same as yesterday. His pulse ox currently is around 93%. His chest x-ray from today is showing diffuse bilateral pulmonary infiltrates, peripheral distribution, I thought his chest x-ray and probably the x-ray findings are improved compared to yesterday's chest x-ray. I have the patient on Solu-Medrol 60 mg every 6 hours. He is also on anticoagulation. He is receiving Lovenox.. His d-dimer is at 1.57 on today's evaluation. His LDH level is high today at 1059 with a CRP of less than 5. He remains on Levemir insulin 50 units along with 6 units of NovoLog with meals and his blood sugars under adequate control for now. He has no other complaints otherwise. Note that initially the patient was started on Decadron and during the course of his treatment he was given Toci 06/01/2020, the patient is on high flow oxygen at 60 L along with an FiO2 of 70%. Pulse ox is in order of 96%. I'm hoping to get down the FiO2 further today. The patient is on IV Solu-Medrol. He is on long-term anticoagulation. He is receiving Lovenox at a dose of 40 mg subcu on a daily basis. In terms of inflammatory markers and blood work, the patient's CRP is less than 0.4 and the LDH level is at 378. The chest x-ray was done yesterday showed some lower lobe active pulmonary infiltrates, findings are unchanged. The patient is awake and alert and following commands and answering questions. He is on Levemir insulin as a dose of 60 daily at bedtime and he is also on NovoLog 10 units with meals and a sliding scale coverage. He has completed tocilizumab The patient is seen today 06/02/2020 in follow-up on the regular medical floor. He is currently sitting up in a chair at the bedside. Awake and alert in no acute distress. He remains on AirVo high flow oxygen at 40 L and 70% FiO2. He is afebrile. White count 18.6. Hemoglobin 13.2. D-dimer 1.6. Sodium 136. Potassium 6.1. Creatinine 1.2. LDH 503. C-reactive protein less than 0.4. Remains on Lovenox, IV Soluj Medrol, vitamin supplements. The patient is seen today 06/03/2020 in follow-up on the regular medical floor. Currently sitting up in a chair at the bedside. Awake and alert in no acute distress. He remains on AirVo high flow oxygen at 40 L and 60% FiO2 to maintain O2 saturations at 88%. Sodium 137. Potassium 5.6. Creatinine 1.3. Glucose 271. Remains on IV Solu-Medrol, Lovenox, vitamin supplements. Levemir and NovoLog sliding scale. Patient is seen today 06/04/2020 in follow-up on the regular medical floor. He is currently sitting up in a chair at the bedside. Awake, alert in no acute distress. Feeling a bit better today compared to yesterday. He is still on AirVo high flow oxygen at 35 L and 65% FiO2 and maintaining O2 saturations at 94%. He remains on IV Solu-Medrol, Lovenox, vitamin supplements. Chest x-ray continues to show patchy bilateral infiltrates similar to previous. The patient is seen today 06/05/2020 in follow-up on the regular medical floor. He is currently resting in bed. Awake and alert in no acute distress. Still requiring AirVo high flow oxygen at 30 L and 60% FiO2. Chest x-ray remains stable. Lung sounds but are clearing. He is feeling better today compared to yesterday. Afebrile. White count 15.4. Hemoglobin 14.2. Sodium 135. Potassium 5.2. Creatinine 1.12. He remains on Lovenox, Solu-Medrol, vitamin supplements. The patient is seen today 06/06/2020 in follow-up on the regular medical floor. He is currently resting comfortably in bed. Awake and alert in no acute distress. He has been slow to progress. He remains on AirVo high flow oxygen at 50L and 90% FiO2 to maintain O2 saturations in the upper 80s lower 90s. Continue basilar crackles left greater than right. Chest x-ray continues to show patchy bilateral airspace disease slightly increase in the mid and lower lung waller. D-dimer 1.58. Sodium 137. Potassium 4.7. Creatinine 1.22. Rem ains on IV Solu-Medrol, Lovenox, vitamin supplements. The patient is seen today 06/07/2020 in follow-up on the regular medical floor. He is currently sitting up at the bedside. Awake and alert in no acute distress. States he is feeling stronger each day. He remains on AirVo high flow oxygen 40 L and 70% FiO2. Working well with the incentive spirometer. White count 13.1. Hemoglobin 11.2. Leukocytes 1.34. Sodium 137. Potassium 5.3. Creatinine 1.1. Remains on IV Solu-Medrol, Lovenox, vitamin supplements. Objective - Vital Signs Vital signs: Vital Signs Temp 97.9 F 06/07/20 14:00 Pulse 60 06/07/20 14:00 Resp 19 06/07/20 14:00 BP 97/68 06/07/20 14:00 Pulse Ox 91 L 06/07/20 14:00 Intake & Output 06/06/20 06/07/20 06/07/20 18:59 06:59 18:59 Output Total 525 Balance -525 Weight 136.078 kg Output: Urine 525 Other: Voiding Method Bedside Commode Urinal # Voids 2 - Exam GENERAL EXAM: Alert, pleasant, 80-year-old male patient, on AirVo high flow oxygen at 40 L and 70% FiO2 comfortable in no apparent distress. HEAD: Normocephalic/atraumatic. EYES: Normal reaction of pupils, equal size. Conjunctiva pink, sclera white. NOSE: Clear with pink turbinates. THROAT: No erythema or exudates. NECK: No masses, no JVD, no thyroid enlargement, no adenopathy. CHEST: No chest wall deformity. Symmetrical expansion. LUNGS: Equal air entry with bibasilar coarse crackles CVS: Regular rate and rhythm, normal S1 and S2, no gallops, no murmurs, no rubs ABDOMEN: Soft, nontender. No hepatosplenomegaly, normal bowel sounds, no guarding or rigidity. EXTREMITIES: No clubbing, no edema, no cyanosis, 2+ pulses and upper and lower extremities. MUSCULOSKELETAL: Muscle strength and tone normal. SPINE: No scoliosis or deformity SKIN: No rashes CENTRAL NERVOUS SYSTEM: No focal deficits, tone is normal in all 4 extremities. PSYCHIATRIC: Alert and oriented -3. Appropriate affect. Intact judgment and insight. - Labs CBC & Chem 7: 06/07/20 07:13 06/07/20 07:13 Labs: Abnormal Lab Results - Last 24 Hours (Table) 06/06/20 06/06/20 06/07/20 Range/Units 16:49 19:59 06:54 WBC (4.50-10.00) X 10*3/uL RBC (4.40-5.60) X 10*6/uL Hgb (13.0-17.0) g/dL Hct (39.6-50.0) % MCHC (32.0-37.0) g/dL Immature Gran # (0.00-0.04) X 10*3/uL Neutrophils # (1.80-7.70) X 10*3/uL Monocytes # (0.20-1.00) X 10*3/uL Eosinophils # (0.04-0.35) X 10*3/uL Anion Gap (4.00-12.00) mmol/L BUN (9.0-27.0) mg/dL BUN/Creatinine Ratio (12.00-20.00) Ratio Glucose (70-110) mg/dL POC Glucose (mg/dL) 162 H 141 H 159 H (75-99) mg/dL Calcium (8.7-10.3) mg/dL 06/07/20 06/07/20 06/07/20 Range/Units 07:13 07:13 11:34 WBC 13.11 H (4.50-10.00) X 10*3/uL RBC 3.69 L (4.40-5.60) X 10*6/uL Hgb 11.2 L (13.0-17.0) g/dL Hct 35.2 L (39.6-50.0) % MCHC 31.8 L (32.0-37.0) g/dL Immature Gran # 0.12 H (0.00-0.04) X 10*3/uL Neutrophils # 10.63 H (1.80-7.70) X 10*3/uL Monocytes # 1.01 H (0.20-1.00) X 10*3/uL Eosinophils # 0 L (0.04-0.35) X 10*3/uL Anion Gap 0.60 L (4.00-12.00) mmol/L BUN 57.0 H (9.0-27.0) mg/dL BUN/Creatinine Ratio 51.82 H (12.00-20.00) Ratio Glucose 164 H (70-110) mg/dL POC Glucose (mg/dL) 232 H (75-99) mg/dL Calcium 7.7 L (8.7-10.3) mg/dL Assessment and Plan Assessment: 1 Acute hypoxic respiratory failure secondary to CoVID 19 pneumonia, he did receive Tocilizumab 2 History of diabetes mellitus type 2 3 History of hypertension 4 History of chronic sinus disease 5 History of diverticulitis, status post bowel resection 6 Hyperkalemia Plan: The patient was seen and evaluated by Dr. Nahum Currently at 40 L and 70% FiO2 via AirVo Titrate the FiO2 as tolerated Continue the current treatment plan We will continue to follow I, the cosigning physician, performed a history & physical examination of the patient. Lungs sounds crackles in the bilateral posterior bases. Maintaining good O2 saturations in the 90s on AirVo high flow oxygen at 40 L and 70% FiO2. I discussed the assessment and plan of care with my nurse practitioner, Krupa Alarcon. I attest to the above note as dictated by her.
[2020-06-07 16:56] LABS: Glucose,Whole Blood 240 mg/dL (75-99)
[2020-06-07 20:47] LABS: Glucose,Whole Blood 208 mg/dL (75-99)
[2020-06-07] MEDS: INSULIN DETEMIR (LEVEMIR) 100 UNIT/ML SYR SQ SCH (21:24)
[2020-06-08] MEDS: methylPREDNISolone SOD SUCCI 125 MG/2 ML VIAL IV SCH ×3 (00:02→16:35)
[2020-06-08 06:54] LABS: Glucose,Whole Blood 235 mg/dL (75-99)
[2020-06-08] MEDS: ATORVASTATIN 80 MG TAB PO SCH (07:45)
[2020-06-08] MEDS: CLOPIDOGREL 75 MG TAB PO SCH (07:45)
[2020-06-08] MEDS: FAMOTIDINE 20 MG TAB PO SCH (07:45)
[2020-06-08] MEDS: ASPIRIN 81 MG PO SCH (07:45)
[2020-06-08] MEDS: ZINC SULFATE 220 MG CAP PO SCH (07:45)
[2020-06-08] MEDS: ENOXAPARIN 40 MG/0.4 ML SYRINGE SQ SCH (07:45)
[2020-06-08] MEDS: INSULIN ASPART (NovoLOG) 100 UNIT/ML VIAL SQ SCH ×7 (07:46→20:51)
[2020-06-08] MEDS: METOPROLOL SUCCINATE (ER) 50 MG TAB.ER.24H PO SCH (07:46)
[2020-06-08] MEDS: glipiZIDE 10 MG TAB PO SCH ×2 (07:46→20:51)
[2020-06-08] MEDS: ASCORBIC ACID 500 MG TAB PO SCH (07:46)
[2020-06-08] MEDS: PIOGLITAZONE 30 MG TAB PO SCH (07:46)
[2020-06-08 10:24] LABS: African American GFR (CKD) 81.4 (60.0-200.0); Non-African American GFR(CKD) 70.3 (60.0-200.0); Potassium 5.8 mmol/L (3.5-5.5)
[2020-06-08 10:43] LABS: Anion Gap 9.5 mmol/L (4.00-12.00); Carbon Dioxide 17.5 mmol/L (21.6-31.8)
[2020-06-08 11:59] LABS: Glucose,Whole Blood 289 mg/dL (75-99)
--- NOTE | 2020-06-08 15:55 | P.PN ---
Subjective Progress Note Date: 06/08/20 Principal diagnosis: CoVID 19 pneumonia 80-year-old male, who was brought to the emergency department by EMS. The patient apparently has had 2 weeks' worth of increasing shortness of breath, and significant fatigue. The patient also had chest congestion. He had a fever. The patient states that he is just not been feeling well and getting progressively worse. He also apparently had an episode or 2 of diarrhea. The patient denied any chest pain or chest pressure or palpitations. The patient also denied nausea, vomiting, and abdominal pain. Apparently when EMS arrived, the patient's saturations were in the low 80s on room air. For that reason, he was transported in, evaluated, and admitted with a diagnosis of COVID 19 19 pneumonia. The patient does have a history of diabetes, hypertension, and a previous pacemaker insertion. White count was 4.6, hemoglobin 12.5, hematocrit 37.1, and platelet count 153,000. PT, INR, and PTT were all normal. D-dimer was 0.77. Sodium 136, potassium 4.5, chlorides 102, CO2 26, anion gap 8, BUN 47, and creatinine 1.63. Ferritin was 985, LDH 818, C-reactive protein 58, and pro-calcitonin level was 0.12. Chest x-ray did show some interstitial infiltrates. On 05/22/2020 patient seen in follow-up on medical floor. he is on 2 L of oxygen his pulse ox is 90-94%, breathing comfortably, no fever or chills, blood pressure has been stable. Denies any worsening dyspnea or hypoxemia, he has a mild cough, no chest discomfort. He continues on oral Decadron 6 mg daily, IV hydration, vitamins, d-dimer was low at 0.77, patient is on subcu heparin for DVT prophylaxis, pro-calcitonin level was low, inflammatory markers were not significantly elevated on admission. Clinically symptoms have not progressed, and patient will be considered for discharge in next 24 hours. The patient is seen today 05/23/2020 in follow-up on the regular medical floor. He is currently sitting up in chair at the bedside. Awake and alert in no acute distress. Continue O2 saturations in the low 90s on 2 L/m per nasal cannula. Afebrile. Hemodynamically stable. Blood cultures reveal no growth. Blood glucose 202. Sodium 143. Potassium 5.5. Creatinine 1.19. He remains on dexamethasone, so continues heparin, vitamin supplements. Chest x-ray continues to show bilateral multifocal opacities consistent with CoVID infection. No neri ge. The patient is seen today 05/24/2020 in follow-up on the regular medical floor. He is currently resting comfortably in bed. Awake and alert in no acute distress. He is maintaining O2 saturations in the 90s on 2 L/m per nasal cannula. He's been on dexamethasone, vitamin supplements, subcutaneous heparin. No worsening shortness of breath, cough or congestion. D-dimer 1.02. Sodium 145. Potassium 5.1. Creatinine 1.3. LDH 485. C-reactive protein 4.4. The patient is seen today 05/25/2020 in follow-up on the regular medical floor. He is currently resting quite comfortably in bed. Maintaining O2 saturations in the low 90s on 2 L/m per nasal cannula. Sodium 144. Potassium 4.7. Creatinine 1.2. Glucose 173. He remains on dexamethasone, heparin, vitamin supplements. 05/26/2020 on seeing the patient for a follow-up regarding the patient's acute hypoxic respiratory failure due to Covid 19 related pneumonia. The patient was not a candidate for Remdesivir, Tocilizumab or convalescent plasma, and the patient is currently on Decadron 6 mg on a daily basis and addition to Levemir insulin 50 units daily at bedtime and NovoLog 6 units 3 times a day with meals and a sliding scale coverage. The patient was on 2 L about 2 by nasal cannula with pulse ox of 93%. Earlier this morning, the patient's oxidation progressively got worse in the patient is currently on 100% nonrebreather facemask maintaining a saturation above 90% at around 94%. Overall, the patient is doing well. Creatinine is at 1.2. The patient had a CRP level of 4.4 with an LDH level of 485 from 05/24/2020. Inflammatory markers are being monitored. Last d-dimer from 05/24/2020 was 1.02. Blood cultures were negative repeat chest x-ray was done today and the findings are essentially stable and the pat ient has patchy bilateral perihilar pulmonary infiltrates without any significant interval change. D-dimer from today is at 1.7 and the patient remains on Lovenox. 05/27/2020 the patient is being seen for a follow-up. The patient is currently on high flow oxygen at 6 L. Note that the patient was on 100% nonrebreather facemask and was switched him to a high flow oxygen yesterday at 60 L. As part of his treatment, the patient received steroids and currently is receiving dexamethasone 6 mg by mouth daily. He is also Toci 2 yesterday and today. He completed treatment without any major side effects. Note that the patient was on low-flow oxygen and he progressively got worse requiring 100% nonrebreather and subsequent high flow oxygen. On today's evaluation, his white cell count is at 10. His d-dimer is at 1.6. Rest of the inflammatory markers have not been checked and this will be repeated tomorrow. LDH from yesterday was 491 with a CRP of 9.4. Otherwise, his renal function shows a stable creatinine of 1.2. The patient has been on FiO2 of 60% with a high flow oxygen of 60 L and the patient has been essentially stable since yesterday. No other significant events. Remains on Lovenox 40 mg subcu on a daily basis. 05/28/2020, the patient is still on high flow oxygen and 60 L. He is not utilizing the 100% nonrebreather facemask this morning. Note that the patient has received steroids, and he remains on Decadron 6 mg by mouth daily. He also completed Tocilizumab. On today's evaluation, chest x-ray findings are stable without any interval change in the bilateral pulmonary infiltrates. The patient is resting comfortably in bed. He is also able to move on a recliner. Labs today shows an LDH of 414 and a CRP of 2.9 and the patient is d-dimer is at 2.56. The patient remains on Lovenox 40 mg subcu on a daily basis. He is on Levemir insulin 50 units daily along with NovoLog 6 units with meals plus a sliding coverage. I will say his condition essentially the same as unchanged compared to yesterday. He is not doing much in progress for now. On today's evaluation of 05/29/2020 the patient is being seen for a follow-up. The patient remains on high flow oxygen with a flow of 6 L an FiO2 of 60%. His current pulse ox is around 88%. He is afebrile. He is doing well. Sitting up on a chair. No signs of any respiratory distress. His breathing is nonlabored and he doesn't have any significant cough unless he takes a deep inspiration. The patient had follow-up blood work today. His LDL level is up 1221 and a CRP level is up to 12.6 and his d-dimer currently is at 2.95. I cannot explain the rise in these inflammatory markers. His creatinine is at 1.2. Was a causative 13.7 with a hemoglobin of 13.2. His chest x-ray from yesterday was showing right basilar infiltrates which are nonspecific and it was mentioned that he was getting worse. The patient remains on Decadron 6 mg by mouth daily. He remains on 50 units of Levemir insulin along with 6 units of NovoLog [id number]. He remains on aspirin. He remains on Lovenox for DVT prophylaxis 40 mg subcu. 05/30/2020 the patient is on high flow oxygen at 60 L with an FiO2 of 70%. His pulse ox was around 93%. He feels well. No altered mentation. Resting comfortably. Sitting up and he has no significant shortness of breath at rest. His chest x-ray still showing diffuse bilateral pulmonary infiltrates, peripheral distribution, probably slightly worse compared to yesterday. However, the radiologist reports is stating that the findings are essentially stable. Clinically he is also stable. The labs from today shows a sugar of 407 is quite high and a d-dimer is down to 1.89 and the patient's LDH level is down to 419 with a CRP level of 0.7. The patient remains on Levemir insulin and is currently taking 50 units along with 6 units with meals of NovoLog. 05/31/2020 the patient remains on high flow at 60 L with an FiO2 of 70% which is essentially the same as yesterday. His pulse ox currently is around 93%. His chest x-ray from today is showing diffuse bilateral pulmonary infiltrates, peripheral distribution, I thought his chest x-ray and probably the x-ray findings are improved compared to yesterday's chest x-ray. I have the patient on Solu-Medrol 60 mg every 6 hours. He is also on anticoagulation. He is receiving Lovenox.. His d-dimer is at 1.57 on today's evaluation. His LDH level is high today at 1059 with a CRP of less than 5. He remains on Levemir insulin 50 units along with 6 units of NovoLog with meals and his blood sugars under adequate control for now. He has no other complaints otherwise. Note that initially the patient was started on Decadron and during the course of his treatment he was given Toci 06/01/2020, the patient is on high flow oxygen at 60 L along with an FiO2 of 70%. Pulse ox is in order of 96%. I'm hoping to get down the FiO2 further today. The patient is on IV Solu-Medrol. He is on long-term anticoagulation. He is receiving Lovenox at a dose of 40 mg subcu on a daily basis. In terms of inflammatory markers and blood work, the patient's CRP is less than 0.4 and the LDH level is at 378. The chest x-ray was done yesterday showed some lower lobe active pulmonary infiltrates, findings are unchanged. The patient is awake and alert and following commands and answering questions. He is on Levemir insulin as a dose of 60 daily at bedtime and he is also on NovoLog 10 units with meals and a sliding scale coverage. He has completed tocilizumab The patient is seen today 06/02/2020 in follow-up on the regular medical floor. He is currently sitting up in a chair at the bedside. Awake and alert in no acute distress. He remains on AirVo high flow oxygen at 40 L and 70% FiO2. He is afebrile. White count 18.6. Hemoglobin 13.2. D-dimer 1.6. Sodium 136. Potassium 6.1. Creatinine 1.2. LDH 503. C-reactive protein less than 0.4. Remains on Lovenox, IV Soluj Medrol, vitamin supplements. The patient is seen today 06/03/2020 in follow-up on the regular medical floor. Currently sitting up in a chair at the bedside. Awake and alert in no acute distress. He remains on AirVo high flow oxygen at 40 L and 60% FiO2 to maintain O2 saturations at 88%. Sodium 137. Potassium 5.6. Creatinine 1.3. Glucose 271. Remains on IV Solu-Medrol, Lovenox, vitamin supplements. Levemir and NovoLog sliding scale. Patient is seen today 06/04/2020 in follow-up on the regular medical floor. He is currently sitting up in a chair at the bedside. Awake, alert in no acute distress. Feeling a bit better today compared to yesterday. He is still on AirVo high flow oxygen at 35 L and 65% FiO2 and maintaining O2 saturations at 94%. He remains on IV Solu-Medrol, Lovenox, vitamin supplements. Chest x-ray continues to show patchy bilateral infiltrates similar to previous. The patient is seen today 06/05/2020 in follow-up on the regular medical floor. He is currently resting in bed. Awake and alert in no acute distress. Still requiring AirVo high flow oxygen at 30 L and 60% FiO2. Chest x-ray remains stable. Lung sounds but are clearing. He is feeling better today compared to yesterday. Afebrile. White count 15.4. Hemoglobin 14.2. Sodium 135. Potassium 5.2. Creatinine 1.12. He remains on Lovenox, Solu-Medrol, vitamin supplements. The patient is seen today 06/06/2020 in follow-up on the regular medical floor. He is currently resting comfortably in bed. Awake and alert in no acute distress. He has been slow to progress. He remains on AirVo high flow oxygen at 50L and 90% FiO2 to maintain O2 saturations in the upper 80s lower 90s. Continue basilar crackles left greater than right. Chest x-ray continues to show patchy bilateral airspace disease slightly increase in the mid and lower lung waller. D-dimer 1.58. Sodium 137. Potassium 4.7. Creatinine 1.22. Rem ains on IV Solu-Medrol, Lovenox, vitamin supplements. The patient is seen today 06/07/2020 in follow-up on the regular medical floor. He is currently sitting up at the bedside. Awake and alert in no acute distress. States he is feeling stronger each day. He remains on AirVo high flow oxygen 40 L and 70% FiO2. Working well with the incentive spirometer. White count 13.1. Hemoglobin 11.2. Leukocytes 1.34. Sodium 137. Potassium 5.3. Creatinine 1.1. Remains on IV Solu-Medrol, Lovenox, vitamin supplements. The patient is seen today 06/08/2020 in follow-up on the regular medical floor. Awake and alert in no acute distress. Sitting up in a chair at the bedside. He is improving daily. He has been slow to progress. Remains on airflow high flow oxygen at 40 L and 50% FiO2. Sodium 135. Potassium 5.8. Creatinine 1.0. Glucose 243. He remains on Lovenox, IV Solu-Medrol, vitamin supplements. Objective - Vital Signs Vital signs: Vital Signs Temp 97.9 F 06/08/20 14:00 Pulse 64 06/08/20 14:00 Resp 18 06/08/20 14:00 BP 124/51 06/08/20 14:00 Pulse Ox 89 L 06/08/20 14:00 Intake & Output 06/07/20 06/08/20 06/08/20 18:59 06:59 18:59 Output Total 400 1 Balance -400 -1 Weight 136.078 kg Output: Urine 400 Stool 1 Other: Voiding Method Bedside Commode Bedside Commode Urinal Urinal # Voids 3 2 - Exam GENERAL EXAM: Alert, pleasant, 80-year-old male patient, on AirVo high flow oxygen at 40 L and 50% FiO2 comfortable in no apparent distress. HEAD: Normocephalic/atraumatic. EYES: Normal reaction of pupils, equal size. Conjunctiva pink, sclera white. NOSE: Clear with pink turbinates. THROAT: No erythema or exudates. NECK: No masses, no JVD, no thyroid enlargement, no adenopathy. CHEST: No chest wall deformity. Symmetrical expansion. LUNGS: Equal air entry with bibasilar coarse crackles CVS: Regular rate and rhythm, normal S1 and S2, no gallops, no murmurs, no rubs ABDOMEN: Soft, nontender. No hepatosplenomegaly, normal bowel sounds, no guarding or rigidity. EXTREMITIES: No clubbing, no edema, no cyanosis, 2+ pulses and upper and lower extremities. MUSCULOSKELETAL: Muscle strength and tone normal. SPINE: No scoliosis or deformity SKIN: No rashes CENTRAL NERVOUS SYSTEM: No focal deficits, tone is normal in all 4 extremities. PSYCHIATRIC: Alert and oriented -3. Appropriate affect. Intact judgment and insight. - Labs CBC & Chem 7: 06/07/20 07:13 06/08/20 06:28 Labs: Abnormal Lab Results - Last 24 Hours (Table) 06/07/20 06/07/20 06/08/20 Range/Units 16:54 20:45 06:28 Potassium 5.8 H (3.5-5.5) mmol/L Carbon Dioxide 17.5 L (21.6-31.8) mmol/L BUN 71.0 H (9.0-27.0) mg/dL BUN/Creatinine Ratio 71.00 H (12.00-20.00) Ratio Glucose 243 H (70-110) mg/dL POC Glucose (mg/dL) 240 H 208 H (75-99) mg/dL Calcium 8.0 L (8.7-10.3) mg/dL 06/08/20 06/08/20 Range/Units 06:53 11:57 Potassium (3.5-5.5) mmol/L Carbon Dioxide (21.6-31.8) mmol/L BUN (9.0-27.0) mg/dL BUN/Creatinine Ratio (12.00-20.00) Ratio Glucose (70-110) mg/dL POC Glucose (mg/dL) 235 H 289 H (75-99) mg/dL Calcium (8.7-10.3) mg/dL Assessment and Plan Assessment: 1 Acute hypoxic respiratory failure secondary to CoVID 19 pneumonia, he did receive Tocilizumab 2 History of diabetes mellitus type 2 3 History of hypertension 4 History of chronic sinus disease 5 History of diverticulitis, status post bowel resection 6 Hyperkalemia Plan: The patient was seen and evaluated by Dr. Sidhu Currently at 40 L and 50% FiO2 via AirVo Titrate the FiO2 as tolerated Continue the current treatment plan Home once down to 4-5 L of oxygen We will continue to follow I, the cosigning physician, performed a history & physical examination of the patient. Lungs sounds crackles in the bilateral posterior bases. Maintaining good O2 saturations in the 90s on AirVo high flow oxygen at 40 L and 50% FiO2. I discussed the assessment and plan of care with my nurse practitioner, Krupa Alarcon. I attest to the above note as dictated by her.
[2020-06-08 16:40] LABS: Basophils % (A) 0 %; Eosinophils % (A) 0 %; HCT 33.1 % (39.0-53.0); Lymphocytes # (A) 1.3 k/uL (1.0-4.8); Lymphocytes % (A) 9 %; MCH 30.6 pg (25.0-35.0); MCHC 32.2 g/dL (31.0-37.0); Mean Platelet Volume 9.3; Monocytes % (A) 6 %; Neutrophils # (A) 13.1 k/uL (1.3-7.7); Neutrophils % (A) 84 %; Platelet Count 208 k/uL (150-450); RBC 3.48 m/uL (4.30-5.90); RDW 14.3 % (11.5-15.5); WBC 15.6 k/uL (3.8-10.6)
--- NOTE | 2020-06-08 16:51 | P.PN ---
Subjective 80-year-old male who presents emergency Department stating that he has had shortness of breath and feeling fatigued for at least 2 weeks. Patient states he has had exposure to COVID . Patient states he has had a fever. Patient states she's also states and smile. Patient also states she's had diarrhea. Patient denies any chest pain or palpitations. Patient denies any abdominal pain patient denies nausea vomiting diarrhea. According to EMS with the patient was coming in he was satting in the low 80s. Patient is currently on a few liters of oxygen and sat in mid 90s. Patient is a diabetic and has high blood pressure. Patient also has a pacemaker. Patient is presently on 2 L of oxygen was requiring 4 L yesterday. Patient was started on IV fluids patient creatinine went up to 1.6 baseline is around 1. Patient's blood sugars are highly elevated. Patient tests positive for Covid. 05/22/2020 Patient is presently on 2 L of oxygen appears to be doing better possibility of discharge tomorrow. Creatinine went up a bit to 1.6 baseline is around the 1. Patient was started on IV fluids will recheck the basic metabolic profile to merari. 05/23/2020 Patient seen and evaluated in follow-up continues to be on 2 L of oxygen and bec omes dyspneic with exertion. Patient states he does not know wear oxygen at home. Pulmonary is following. Patient's blood sugars are elevated and will continue sliding scale at this time as patient is on steroids. Potassium was found to be slightly elevated at 5.5 and was given a dose of Kayexalate. Will repeat a.m. labs. Instructed and encouraged the patient to get up and increase activity as tolerated. 05/24/2020 Patient is presently in 2 does of hours and doing clinically well. Patient is on dexamethasone, vitamin supplements, subcutaneous heparin. No worsening shortness of breath, cough or congestion. D-dimer 1.02. Sodium 145. Potassium 5.1. Creatinine 1.3. LDH 485. C-reactive protein 4.4. His creatinine actually went up a little bit from 1.19-1.3 05/25/2020 Patient is fairly stable no significant improvement or worsening. Patient is still on 2 L of oxygen. We'll monitor him 1 more night. Continues to require oxygen patient probably can be discharged on 2 L tomorrow this can be tapered or discontinued as an outpatient. Patient d-dimer is bit worse compared to admission. Although other inflammatory markers are better 05/26/2020 Patient is seen this morning currently on nonrebreather and airvo as his oxygen was found to be 89% on 6 L of oxygen. Pulmonary is following. D-dimer has gone up at 1.70 along with lactate dehydrogenase at 491 and CRP is 9.4. Blood sugars continue to be elevated and patient is maintained on sliding scale along with long-acting and pre-meal insulin and will continue at this time. Patient continues on vitamin and zinc supplements along with Lovenox and dexamethasone daily. Patient is scheduled to receive Tocilizumab today. Will continue to monitor closely based on the clinical course of the patient. Patient continues to be weak and was seen and evaluated by physical therapy recommending subacute rehab and patient is now agreeable and a social work consult was placed. 05/27/2020 Patient is seen and evaluated this morning with no improvement in respiratory status. Patient remains on Airvo with supplemental nonrebreather. Patient is day 2 of receiving Tocilizumab. Will repeat a.m. chest x-ray along with i nflammatory markers. D-dimer today was 1.60. White blood count has gone up in is 10.8, hemoglobin is 12.6. Patient is afebrile. To continue with dexamethasone, Lovenox, vitamin C and zinc supplements. Pulmonary is following. Had a discussion with the patient about CODE STATUS along with his son Mauricio and currently wish to remain a full code until talking with family member more extensively about the situation. Will continue to monitor closely. Prognosis remains guarded. 05/28/2020 Patient is seen this morning status post getting up to the bathroom and continues to be extremely dyspneic with any exertion and was found to be low 80s to 83% oxygenation. Patient continues on the airvo with a flow rate of 60 and FiO2 of 64 and is currently 91%. Patient denies any chest pain or palpitations. Patient is afebrile. Patient reports to tolerating diet with no nausea or vomiting noted. D-dimer continues to be elevated at 2.56, sodium today is 140 with a potassium of 5.1 and creatinine is 1.2. Blood sugars on the lower side this morning and will continue to monitor closely and treat accordingly with sliding scale. Inflammatory markers trending down. Pulmonary following closely. Chest x-ray today shows continued bibasilar infiltrates which are nonspecific but worsening. 05/29/2020 Patient is seen in follow-up this morning and continues to be on Airvo no significant change. Patient was on dexamethasone all being transitioned to IV Solu-Medrol and will continue with Accu-Cheks and close glycemic control with pre-meal, long-acting, and sliding scale. White blood count is 13.9, hemoglobin is stable at 13.2, d-dimer is 2.95, sodium is 137, potassium is 5.1, creatinine slightly elevated at 1.24. Inflammatory markers have gone up. Patient is sitting up in the chair and denies any chest pain or worsening shortness of breath. Patient states he feels he is about the same. Patient also states he has been sleeping a lot and tolerating diet with no reports of nausea or vomiting. Discussed with patient about increasing activity as tolerated although patient is extremely dyspneic with minimal exertion. 05/30/2020 Patient is seen and evaluated this morning and follow-up with no acute overnight issues. Patient continues to be on Airvo with a flow rate of 60 and FiO2 of 70 and is being closely monitored. Transitioned to IV Solu-Medrol and will continue at this time. Blood sugars elevated and increasing long-acting and pre-meal insulins and will continue sliding scale along with oral antidiabetic agents. Need tighter glycemic control. Patient has been eating 100% of all meals with no reports of nausea or vomiting noted. Patient clinically looking better and chest x-ray displays stable infiltrates. D-dimer slightly trending down along with inflammatory markers. Creatinine is stable at 1.2 and potassium is 5.5. Will continue to monitor vital signs and labs closely. On 05/31/2020 -patient is seen and examined at the bedside. He is sitting up in the chair and is on Airvo 60 L with FiO2 of 70%, saturating about 90%. He still complains of exertional dyspnea and cough at times. Denies having any fevers chills or rigors. He complains of generalized weakness. On reviewing his vitals temperature of 97.9, heart rate 63, respiratory rate 18, blood pressure 120 x 62 . On reviewing his labs white count of 22.9, hemoglobin 13, platelets 299. Sodium 136, potassium 5.6, chloride 104, bicarb 26, BUN 55, creatinine 1.15. Blood sugars running on the higher side around 300s. Patient had a chest x-ray done this morning showing mild to moderate mid and lower zone infiltrates. On 06/01/2020 -patient is seen and examined at bedside. He is sitting up in a chair at fifth high flow oxygen at 60 L FiO2 of 70% and pulse ox at 94%. He is still having exertional dyspnea and complains of generalized weakness. He states that he is tired of using the oxygen. On reviewing the vitals T-max of 97.9, heart rate 60, respiratory 19, blood pressure 130/60. Reviewing the labs LDH 378, CRP less than 0.04 and D-dimer of 1.53. All medications have been reviewed and pertinent changes made. 06/02/2020 Patient is seen and evaluated this morning with no acute overnight issues. Patient continues to sit up in the chair throughout most of the day as he states his breathing is better. Patient continues to be on Airvo and flow rate has been decreased to 40 with an FiO2 of 70% and is currently 92%. Patient continues to have dyspnea with minimal exertion and continues to have weakness and will likely require some form rehab once stabilized and discharged. PT/OT to continue to follow. White blood count trending down at 18.64 and hemoglobin is stable at 13.2. D-dimer is 1.60 with a sodium of 136 and potassium was found to be 6.1 and being corrected and will repeat a.m. labs. Creatinine is 1.2. Blood sugars continue to be elevated and will continue with sliding scale and long-acting and monitor closely. LDH trending back up at 503 and will monitor closely. CRP is 0.4. 06/03/2020 Patient's potassium is still high received the calcium gluconate and insulin as today. Will order capsulate. This is nonhemolyzed sample patient was started on low potassium diet. Patient remains on Airvo , 40 L and 60% FiO2 which is better compared to yesterday and saturating better appears to have been some improvement. 06/07/2020 Patient's overall respiratory status remains the patient is oxygen flow rate of 40 L with FiO2 of 60% may be a mild improvement but saturations are going down again. Patient is already on low potassium diet not an ALE inhibitor potassium supplementation will repeat basic metabolic profile again tomorrow. Patient is not on any IV fluids is eating well. 06/08/2020 Patient is doing bit better today his oxygen requirements are going down patient is on Harleen at the cefoxitin and 50% FiO2. Blood glucose is bit elevated. Patient had an episode of GI bleed will continue with anticoagulation and aspirin gastro-oncology will be consulted probably hemorrhoidal bleed patient had blood in the stools. Constitutional: Reports fatigue although slightly more awake today, denied any fever. Cardio vascular: denied any chest pain, palpitations Gastrointestinal denied any nausea vomiting Pulmonary: No shortness of breath today Neurologic reports generalized weakness All inpatient medications were reviewed and appropriate changes in these medications as dictated in the interval history and assessment and plan. Creatinine improved but potassium is high Objective - Vital Signs Vital signs: Vital Signs Temp 97.9 F 06/08/20 14:00 Pulse 64 06/08/20 14:00 Resp 18 06/08/20 14:00 BP 124/51 06/08/20 14:00 Pulse Ox 93 L 06/08/20 16:12 Intake & Output 06/07/20 06/08/20 06/08/20 18:59 06:59 18:59 Intake Total 540 Output Total 400 1 Balance -400 539 Weight 136.078 kg Intake: Oral 540 Output: Urine 400 Stool 1 Other: Voiding Method Bedside Commode Bedside Commode Urinal Urinal # Voids 3 2 3 # Bowel Movements 2 - Exam - Exam GENERAL: The patient is alert and oriented x3, not in any acute distress. Obese, currently on airvo at a flow rate of 40 with an FiO2 of 70, continue to wean as tolerated HEENT: Pupils are round and equally reacting to light. EOMI. No scleral icterus. No conjunctival pallor. Normocephalic, atraumatic. No pharyngeal erythema. No thyromegaly. CARDIOVASCULAR: S1 and S2 present. No murmurs, rubs, or gallops. PULMONARY: Diminished breath sounds bilaterally with no wheezing or rhonchi noted ABDOMEN: Soft, nontender, nondistended, normoactive bowel sounds. No palpable organomegaly. MUSCULOSKELETAL: No joint swelling or deformity. EXTREMITIES: No cyanosis, clubbing, or pedal edema. NEUROLOGICAL: Gross neurological examination did not reveal any focal deficits. SKIN: No rashes. - Labs CBC & Chem 7: 06/07/20 07:13 06/08/20 06:28 Labs: Abnormal Lab Results - Last 24 Hours (Table) 06/07/20 06/07/20 06/08/20 Range/Units 16:54 20:45 06:28 Potassium 5.8 H (3.5-5.5) mmol/L Carbon Dioxide 17.5 L (21.6-31.8) mmol/L BUN 71.0 H (9.0-27.0) mg/dL BUN/Creatinine Ratio 71.00 H (12.00-20.00) Ratio Glucose 243 H (70-110) mg/dL POC Glucose (mg/dL) 240 H 208 H (75-99) mg/dL Calcium 8.0 L (8.7-10.3) mg/dL 06/08/20 06/08/20 Range/Units 06:53 11:57 Potassium (3.5-5.5) mmol/L Carbon Dioxide (21.6-31.8) mmol/L BUN (9.0-27.0) mg/dL BUN/Creatinine Ratio (12.00-20.00) Ratio Glucose (70-110) mg/dL POC Glucose (mg/dL) 235 H 289 H (75-99) mg/dL Calcium (8.7-10.3) mg/dL Assessment and Plan Plan: -acute hypoxic respiratory failure: Secondary to covid 19 pneumonia patient maintained on vitamin and zinc supplements. Patient currently on IV solu- Medrol. has received Tocilizumab, monitor inflammatory markers ,Patient currently on Airvo. Pulmonary following -Acute lower GI bleed: Possibly hemorrhoidal bleed hold off on Lovenox and aspirin, gastroneurology was consulted -Type 2 diabetes mellitus uncontrolled elevated blood sugars secondary to systemic steroids, continue with pre-meal, sliding scale, and long-acting, with adjustments made and will increase pre-male and long-acting doses -Hyperkalemia, improved -Hypotonic hyponatremia, improved -Acute renal failure secondary to Covid 19: Improved, current creatinine is 1.2 -Hypertension -DVT subcutaneous Lovenox -Full code Plan: Continue with current medications. Will continue IV Solu-Medrol with vitamin and zinc supplements . patient has received Tocilizumab. Pulmonary following . Patient currently on airvo and slowly weaning as tolerated. PT/OT following and patient may likely require ECF for continued PT/OT therapy due to weakness once stabilized and discharged. Patient response to treatment is slow. Will continue to monitor closely. Prognosis remains guarded.
[2020-06-08 16:58] LABS: HGB 10.7 gm/dL (13.0-17.5)
[2020-06-08 17:10] LABS: Glucose,Whole Blood 170 mg/dL (75-99)
[2020-06-08 20:36] LABS: Glucose,Whole Blood 178 mg/dL (75-99)
[2020-06-08] MEDS: INSULIN DETEMIR (LEVEMIR) 100 UNIT/ML SYR SQ SCH (20:51)
[2020-06-09] MEDS: methylPREDNISolone SOD SUCCI 125 MG/2 ML VIAL IV SCH ×3 (00:30→17:54)
[2020-06-09 06:51] LABS: Glucose,Whole Blood 91 mg/dL (75-99)
[2020-06-09] MEDS: INSULIN ASPART (NovoLOG) 100 UNIT/ML VIAL SQ SCH ×7 (07:24→21:06)
[2020-06-09] MEDS: FAMOTIDINE 20 MG TAB PO SCH (07:34)
[2020-06-09] MEDS: CLOPIDOGREL 75 MG TAB PO SCH (07:35)
[2020-06-09] MEDS: ATORVASTATIN 80 MG TAB PO SCH (07:35)
[2020-06-09] MEDS: METOPROLOL SUCCINATE (ER) 50 MG TAB.ER.24H PO SCH (07:35)
[2020-06-09] MEDS: ASCORBIC ACID 500 MG TAB PO SCH (07:35)
[2020-06-09] MEDS: glipiZIDE 10 MG TAB PO SCH ×2 (07:35→21:04)
[2020-06-09] MEDS: PIOGLITAZONE 30 MG TAB PO SCH (07:36)
[2020-06-09] MEDS: ZINC SULFATE 220 MG CAP PO SCH (07:36)
[2020-06-09 08:50] LABS: HCT 30.5 % (39.6-50.0); HGB 9.9 g/dL (13.0-17.0); MCH 31.1 pg (27.0-32.0); MCHC 32.5 g/dL (32.0-37.0); MCV 95.9 fL (80.0-97.0); Mean Platelet Volume 11.9 fL (9.5-12.2); Platelet Count 193 X 10*3/uL (140-440); RBC 3.18 X 10*6/uL (4.40-5.60); RDW 14.3 % (11.5-14.5); WBC 14.75 X 10*3/uL (4.50-10.00)
[2020-06-09 11:22] LABS: Glucose,Whole Blood 218 mg/dL (75-99)
[2020-06-09 12:04] LABS: African American GFR (CKD) 72.6 (60.0-200.0); Anion Gap 2.1 mmol/L (4.00-12.00); Calcium 8.3 mg/dL (8.7-10.3); Carbon Dioxide 26.9 mmol/L (21.6-31.8); Non-African American GFR(CKD) 62.6 (60.0-200.0); Potassium 5.1 mmol/L (3.5-5.5)
--- NOTE | 2020-06-09 14:47 | P.CONS ---
History of Present Illness - Reason for Consult Consult date: 06/09/20 Blood per rectum Requesting physician: María Elena Vyas - Chief Complaint Shortness of breath, fever - History of Present Illness 80-year-old male with multiple medical comorbidities including diabetes mellitus, hypertension, prior pacemaker placement, diverticulosis with prior bowel resection for complicated diverticulitis who presented to the hospital due to concerns over shortness of breath and fever. Patient was diagnosed with Covid 19 pneumonia for which he is currently receiving treatment. The patient is on high flow nasal cannula at this time setting bedside and eating. He is unsure if he previously had a colonoscopy and reports that his prior bowel res ection was 40 years ago. The patient has been treated for viral infection and developed some bleeding yesterday. Multiple episodes of blood per rectum otherwise bowel movements have remained normal with no diarrhea or constipation. Only one day of bleeding with no further bleeding today. Hemoglobin found to fall to 9.9. He denies any abdominal pain. Review of Systems REVIEW OF SYSTEMS: CONSTITUTIONAL: Denies any fevers, chills, weight change but he had been experiencing fevers on presentation. CARDIOVASCULAR: Denies any chest pain, palpitations high or low blood pressures RESPIRATORY: Denies any hemoptysis but the patient had been complaining of shortness of breath on presentation, currently having symptoms of shortness of breath on exertion. GENITOURINARY: No dysuria or hematuria. MUSCULOSKELETAL: No weakness reported. SKIN: Denies any new rashes or lesions, jaundice or pallor. PSYCHIATRIC: Denies any depression or anxiety. NEUROLOGY: Denies headache, denies any new focal deficits. EARS/NOSE/THROAT: No recent hearing change, congestion, nasal discharge or sore throat. EYES: No pain in eyes, discharge or change in vision. GASTROINTESTINAL: As per HPI. Past Medical History Past Medical History: Diabetes Mellitus, Hypertension Additional Past Medical History / Comment(s): sinusitis, diverticulits History of Any Multi-Drug Resistant Organisms: None Reported Past Surgical History: Bowel Resection, Cholecystectomy Additional Past Surgical History / Comment(s): bowel resection d/t diverticulitis, colonoscopy Past Anesthesia/Blood Transfusion Reactions: No Reported Reaction Past Psychological History: No Psychological Hx Reported Additional Psychological History / Comment(s): pt lives with his girlfriend jose, is independant, no assistive devices.no outside services. 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 Smoking Status: Former smoker Past Alcohol Use History: Occasional Past Drug Use History: None Reported - Past Family History Mother Additional Family Medical History / Comment(s): reproductive cancer Father Family Medical History: Diabetes Mellitus Medications and Allergies Home Medications Medication Instructions Recorded Confirmed Type glipiZIDE [Glipizide] 20 mg PO BID 01/29/15 05/20/20 History metFORMIN HCL 1,000 mg PO BID 01/29/15 05/20/20 History Pioglitazone [Actos] 30 mg PO DAILY 07/20/19 05/20/20 History Aspirin [Adult Low Dose Aspirin EC] 81 mg PO DAILY #30 tab 07/27/19 05/20/20 Rx Atorvastatin [Lipitor] 80 mg PO DAILY #30 tab 07/27/19 05/20/20 Rx Furosemide [Lasix] 20 mg PO DAILY #30 tab 07/27/19 05/20/20 Rx Clopidogrel Bisulfate [Plavix] 75 mg PO DAILY 05/20/20 05/20/20 History Losartan [Cozaar] 50 mg PO DAILY 05/20/20 05/20/20 History Metoprolol Succinate (ER) [Toprol 50 mg PO DAILY 05/20/20 05/20/20 History Xl] Allergies Allergy/AdvReac Type Severity Reaction Status Date / Time Mushroom Allergy Vomiting Verified 05/20/20 20:46 Penicillins Allergy Unknown Verified 05/20/20 20:46 Physical Exam Vitals: Vital Signs Temp Pulse Resp BP Pulse Ox 06/09/20 09:39 97.7 F 64 18 105/48 94 L 06/09/20 08:04 89 L 06/09/20 05:40 97.6 F 19 122/62 92 L 06/09/20 02:00 98.1 F 58 L 19 128/56 96 06/08/20 23:34 92 L 06/08/20 20:21 97.8 F 62 15 122/55 94 L 06/08/20 20:00 97 06/08/20 17:53 98.2 F 56 L 18 125/61 97 06/08/20 16:12 93 L 06/08/20 14:00 97.9 F 64 18 124/51 89 L Intake and Output 06/08/20 06/09/20 06/09/20 22:59 06:59 14:59 Intake Total 1080 Balance 1080 Intake: Oral 1080 Other: # Voids 2 2 # Bowel Movements 2 On physical examination, patient appears comfortable in no apparent distress. HEAD: Normocephalic, atraumatic. EYES: No scleral icterus. No conjunctival injection. MOUTH: No lesions, tongue midline. NECK: Trachea midline, no gross abnormalities. CHEST: Decreased air entry in all lung waller. HEART: S1-S2 appreciated. ABDOMEN: Soft, obese, nontender to palpation. Bowel sounds are positive. No organomegaly. No guarding or rigidity. EXTREMITIES: Bilateral pedal edema. SKIN: No rashes, no jaundice. NEUROLOGIC: Alert and oriented to person and place. Results CBC & Chem 7: 06/09/20 06:09 06/09/20 06:09 Labs: Abnormal Lab Results - Last 24 Hours (Table) 06/08/20 06/08/20 06/08/20 Range/Units 11:57 15:45 17:09 WBC 15.6 H (3.8-10.6) k/uL RBC 3.48 L (4.30-5.90) m/uL Hgb 10.7 L D (13.0-17.5) gm/dL Hct 33.1 L (39.0-53.0) % Neutrophils # 13.1 H (1.3-7.7) k/uL POC Glucose (mg/dL) 289 H 170 H (75-99) mg/dL 06/08/20 06/09/20 06/09/20 Range/Units 20:32 06:09 11:16 WBC 14.75 H (3.8-10.6) k/uL RBC 3.18 L (4.30-5.90) m/uL Hgb 9.9 L (13.0-17.5) gm/dL Hct 30.5 L (39.0-53.0) % Neutrophils # (1.3-7.7) k/uL POC Glucose (mg/dL) 178 H 218 H (75-99) mg/dL Chest x-ray: report reviewed Assessment and Plan (1) Blood per rectum Narrative/Plan: 80-year-old male with multiple medical comorbidities currently receiving treatment for Covid 19 pneumonia. Patient had witnessed episodes of bright red blood per rectum on the medical floor. Currently improved and is stable at 9.9, was initially 14 on presentation. Patient does have a history of prior bowel resection approximate 40 years ago for consultative diverticulitis. No further bleeding today. No abdominal pain reported. He is tolerating his diet. Unclear etiology, may be related to perirectal and hemorrhoidal disease, cannot rule out anastomotic site ulcer, ischemic colitis less likely given absence of abdominal pain, or other etiology. Current Visit: Yes Status: Acute Code(s): K62.5 - HEMORRHAGE OF ANUS AND RECTUM SNOMED Code(s): 46439496 (2) Anemia associated with acute blood loss Current Visit: Yes Status: Acute Code(s): D62 - ACUTE POSTHEMORRHAGIC ANEMIA SNOMED Code(s): 773795264 Plan: Supportive care Okay for diet as tolerated Continue to monitor CBC and transfuse as needed Continue to monitor for signs and symptoms of GI bleeding Local hemorrhoidal care with topical steroid therapy ordered Anemia laboratory evaluation ordered Extensive discussion with the patient regarding possible treatment options at this time the patient is not interested in any endoscopy, continue to monitor and reevaluated further bleeding or fall in hemoglobin Thank you for allowing us to persist in the care of this patient we will continue to follow
--- NOTE | 2020-06-09 16:36 | P.PN ---
Subjective Progress Note Date: 06/09/20 80-year-old male who presents emergency Department stating that he has had shortness of breath and feeling fatigued for at least 2 weeks. Patient states he has had exposure to COVID . Patient states he has had a fever. Patient states she's also states and smile. Patient also states she's had diarrhea. Patient denies any chest pain or palpitations. Patient denies any abdominal pain patient denies nausea vomiting diarrhea. According to EMS with the patient was coming in he was satting in the low 80s. Patient is currently on a few liters of oxygen and sat in mid 90s. Patient is a diabetic and has high blood pressure. Patient also has a pacemaker. Patient is presently on 2 L of oxygen was requiring 4 L yesterday. Patient was started on IV fluids patient creatinine went up to 1.6 baseline is around 1. Patient's blood sugars are highly elevated. Patient tests positive for Covid. 05/22/2020 Patient is presently on 2 L of oxygen appears to be doing better possibility of discharge tomorrow. Creatinine went up a bit to 1.6 baseline is around the 1. Patient was started on IV fluids will recheck the basic metabolic profile tomorrow. 05/23/2020 Patient seen and evaluated in follow-up continues to be on 2 L of oxygen and becomes dyspneic with exertion. Patient states he does not know wear oxygen at home. Pulmonary is following. Patient's blood sugars are elevated and will continue sliding scale at this time as patient is on steroids. Potassium was found to be slightly elevated at 5.5 and was given a dose of Kayexalate. Will repeat a.m. labs. Instructed and encouraged the patient to get up and increase activity as tolerated. 05/24/2020 Patient is presently in 2 does of hours and doing clinically well. Patient is on dexamethasone, vitamin supplements, subcutaneous heparin. No worsening shortness of breath, cough or congestion. D-dimer 1.02. Sodium 145. Potassium 5.1. Creatinine 1.3. LDH 485. C-reactive protein 4.4. His creatinine actually went up a little bit from 1.19-1.3 05/25/2020 Patient is fairly stable no significant improvement or worsening. Patient is still on 2 L of oxygen. We'll monitor him 1 more night. Continues to require oxygen patient probably can be discharged on 2 L tomorrow this can be tapered or discontinued as an outpatient. Patient d-dimer is bit worse compared to admission. Although other inflammatory markers are better 05/26/2020 Patient is seen this morning currently on nonrebreather and airvo as his oxygen was found to be 89% on 6 L of oxygen. Pulmonary is following. D-dimer has gone up at 1.70 along with lactate dehydrogenase at 491 and CRP is 9.4. Blood sugars continue to be elevated and patient is maintained on sliding scale along with long-acting and pre-meal insulin and will continue at this time. Patient continues on vitamin and zinc supplements along with Lovenox and dexamethasone daily. Patient is scheduled to receive Tocilizumab today. Will continue to monitor closely based on the clinical course of the patient. Patient continues to be weak and was seen and evaluated by physical therapy recommending subacute rehab and patient is now agreeable and a social work consult was placed. 05/27/2020 Patient is seen and evaluated this morning with no improvement in respiratory status. Patient remains on Airvo with supplemental nonrebreather. Patient is day 2 of receiving Tocilizumab. Will repeat a.m. chest x-ray along with inflammatory markers. D-dimer today was 1.60. White blood count has gone up in is 10.8, hemoglobin is 12.6. Patient is afebrile. To continue with dexametha sone, Lovenox, vitamin C and zinc supplements. Pulmonary is following. Had a discussion with the patient about CODE STATUS along with his son Mauricio and currently wish to remain a full code until talking with family member more extensively about the situation. Will continue to monitor closely. Prognosis remains guarded. 05/28/2020 Patient is seen this morning status post getting up to the bathroom and continues to be extremely dyspneic with any exertion and was found to be low 80s to 83% oxygenation. Patient continues on the airvo with a flow rate of 60 and FiO2 of 64 and is currently 91%. Patient denies any chest pain or palpitations. Patient is afebrile. Patient reports to tolerating diet with no nausea or vomiting noted. D-dimer continues to be elevated at 2.56, sodium today is 140 with a potassium of 5.1 and creatinine is 1.2. Blood sugars on the lower side this morning and will continue to monitor closely and treat accordingly with sliding scale. Inflammatory markers trending down. Pulmonary following closely. Chest x-ray today shows continued bibasilar infiltrates which are nonspecific but worsening. 05/29/2020 Patient is seen in follow-up this morning and continues to be on Airvo no significant change. Patient was on dexamethasone all being transitioned to IV Solu-Medrol and will continue with Accu-Cheks and close glycemic control with pre-meal, long-acting, and sliding scale. White blood count is 13.9, hemoglobin is stable at 13.2, d-dimer is 2.95, sodium is 137, potassium is 5.1, creatinine slightly elevated at 1.24. Inflammatory markers have gone up. Patient is sitting up in the chair and denies any chest pain or worsening shortness of breath. Patient states he feels he is about the same. Patient also states he has been sleeping a lot and tolerating diet with no reports of nausea or vomiting. Discussed with patient about increasing activity as tolerated although patient is extremely dyspneic with minimal exertion. 05/30/2020 Patient is seen and evaluated this morning and follow-up with no acute overnight issues. Patient continues to be on Airvo with a flow rate of 60 and FiO2 of 70 and is being closely monitored. Transitioned to IV Solu-Medrol and will continue at this time. Blood sugars elevated and increasing long-acting and pre-meal insulins and will continue sliding scale along with oral antidiabetic agents. Need tighter glycemic control. Patient has been eating 100% of all meals with no reports of nausea or vomiting noted. Patient clinically looking better and chest x-ray displays stable infiltrates. D-dimer slightly trending down along with inflammatory markers. Creatinine is stable at 1.2 and potassium is 5.5. Will continue to monitor vital signs and labs closely. On 05/31/2020 -patient is seen and examined at the bedside. He is sitting up in the chair and is on Airvo 60 L with FiO2 of 70%, saturating about 90%. He still complains of exertional dyspnea and cough at times. Denies having any fevers chills or rigors. He complains of generalized weakness. On reviewing his vitals temperature of 97.9, heart rate 63, respiratory rate 18, blood pressure 120 x 62 . On reviewing his labs white count of 22.9, hemoglobin 13, platelets 299. Sodium 136, potassium 5.6, chloride 104, bicarb 26, BUN 55, creatinine 1.15. Blood sugars running on the higher side around 300s. Patient had a chest x-ray done this morning showing mild to moderate mid and lower zone infiltrates. On 06/01/2020 -patient is seen and examined at bedside. He is sitting up in a chair at fifth high flow oxygen at 60 L FiO2 of 70% and pulse ox at 94%. He is still having exertional dyspnea and complains of generalized weakness. He states that he is tired of using the oxygen. On reviewing the vitals T-max of 97.9, heart rate 60, respiratory 19, blood pressure 130/60. Reviewing the labs LDH 378, CRP less than 0.04 and D-dimer of 1.53. All medications have been reviewed and pertinent changes made. 06/02/2020 Patient is seen and evaluated this morning with no acute overnight issues. Patient continues to sit up in the chair throughout most of the day as he states his breathing is better. Patient continues to be on Airvo and flow rate has been decreased to 40 with an FiO2 of 70% and is currently 92%. Patient con tinues to have dyspnea with minimal exertion and continues to have weakness and will likely require some form rehab once stabilized and discharged. PT/OT to continue to follow. White blood count trending down at 18.64 and hemoglobin is stable at 13.2. D-dimer is 1.60 with a sodium of 136 and potassium was found to be 6.1 and being corrected and will repeat a.m. labs. Creatinine is 1.2. Blood sugars continue to be elevated and will continue with sliding scale and long- acting and monitor closely. LDH trending back up at 503 and will monitor closely. CRP is 0.4. 06/03/2020 Patient's potassium is still high received the calcium gluconate and insulin as today. Will order capsulate. This is nonhemolyzed sample patient was started on low potassium diet. Patient remains on Airvo , 40 L and 60% FiO2 which is better compared to yesterday and saturating better appears to have been some improvement. 06/04/2020 Patient is seen and evaluated this morning continues to be sitting up in the chair. Patient states he feels his breathing is improved but "I'm still here in the hospital". Patient has continued weakness and has been working with PT/OT therapy. Patient does require assistance to the bedside commode and will have PT/OT therapy reevaluate with the possibility of ECF once stabilized and discharged. Sodium today is 138 with a potassium of 5.2 and current creatinine is 1.3. Blood sugars being closely monitored and will continue with current medication regimen. Respiratory slowly weaning Airvo settings and is maintained on a flow rate of 35 with an FiO2 of 65%. Pulmonary is following. 06/05/2020 Patient is seen this morning continues to be on Airvo and slow to respond. Current settings have a flow rate of 36 and FiO2 of 60%. Patient denies any worsening shortness of breath. White blood count trending down at 15.4, hemoglobin is stable at 14.2, sodium is 135, potassium is 5.2, current creatinine slightly improved at 1.12. 06/06/2020 Patient is seen and evaluated and follow-up continues to be on airvo requiring more oxygen support with a flow rate of 50 and an FiO2 of 70%. D-dimer continues to trend down at 1.58, sodium is 137, potassium is 4.7, current creatinine is 1.22. Blood sugars have been variable and will continue with current regimen and monitor closely. Continue with Accu-Cheks before meals and at bedtime. Patient is afebrile. 06/07/2020 Patient's overall respiratory status remains the patient is oxygen flow rate of 40 L with FiO2 of 60% may be a mild improvement but saturations are going down again. Patient is already on low potassium diet not an ALE inhibitor potassium supplementation will repeat basic metabolic profile again tomorrow. Patient is not on any IV fluids is eating well. 06/08/2020 Patient is doing bit better today his oxygen requirements are going down patient is on Airvo and 50% FiO2. Blood glucose is bit elevated. Patient had an episode of GI bleed will continue with anticoagulation and aspirin gastro- oncology will be consulted probably hemorrhoidal bleed patient had blood in the stools. 06/09/2020 Patient is seen and evaluated and follow-up with no acute overnight issues. Apparently patient had a few episodes of blood in the stool and was evaluated by GI and no plans for endoscopic intervention at this time as patient is not interested. Patient denies any pain or discomfort. Hemoglobin today is able at 9.9 and will continue to monitor closely. Patient continues on Airvo the flow rate of 35 and FiO2 of 60% and currently 93%. Patient is afebrile. Discussed with the patient about increasing activity as tolerated and sitting up in the chair more often. Constitutional: No reports of fatigue, denied any fever. Cardio vascular: denied any chest pain, palpitations Gastrointestinal denied any nausea vomiting, denies any bleeding in the stool today Pulmonary: Reports continued shortness of breath no worse Neurologic reports generalized weakness All inpatient medications were reviewed and appropriate changes in these medications as dictated in the interval history and assessment and plan. Objective - Vital Signs Vital signs: Vital Signs Temp 98.1 F 06/09/20 13:24 Pulse 84 06/09/20 13:24 Resp 20 06/09/20 13:24 BP 114/57 06/09/20 13:24 Pulse Ox 93 L 06/09/20 15:53 Intake & Output 06/08/20 06/09/20 06/09/20 18:59 06:59 18:59 Intake Total 1080 Output Total 1 Balance 1079 Intake: Oral 1080 Output: Stool 1 Other: Voiding Method Bedside Commode Urinal # Voids 2 2 # Bowel Movements 2 - Exam GENERAL: The patient is alert and oriented x3, not in any acute distress. Obese, currently on airvo at a flow rate of 35 with an FiO2 of 60, continue to wean as tolerated HEENT: Pupils are round and equally reacting to light. EOMI. No scleral icterus. No conjunctival pallor. Normocephalic, atraumatic. No pharyngeal erythema. No thyromegaly. CARDIOVASCULAR: S1 and S2 present. No murmurs, rubs, or gallops. PULMONARY: Diminished breath sounds bilaterally with no wheezing noted, coarse rhonchi noted bilaterally ABDOMEN: Soft, nontender, nondistended, normoactive bowel sounds. No palpable organomegaly. MUSCULOSKELETAL: No joint swelling or deformity. EXTREMITIES: No cyanosis, clubbing, or pedal edema. NEUROLOGICAL: Gross neurological examination did not reveal any focal deficits. Diffuse weakness SKIN: No rashes. - Labs CBC & Chem 7: 06/09/20 06:09 06/09/20 06:09 Labs: Abnormal Lab Results - Last 24 Hours (Table) 06/08/20 06/08/20 06/08/20 Range/Units 15:45 17:09 20:32 WBC 15.6 H (3.8-10.6) k/uL RBC 3.48 L (4.30-5.90) m/uL Hgb 10.7 L D (13.0-17.5) gm/dL Hct 33.1 L (39.0-53.0) % Neutrophils # 13.1 H (1.3-7.7) k/uL Anion Gap (4.00-12.00) mmol/L BUN (9.0-27.0) mg/dL BUN/Creatinine Ratio (12.00-20.00) Ratio POC Glucose (mg/dL) 170 H 178 H (75-99) mg/dL Calcium (8.7-10.3) mg/dL 06/09/20 06/09/20 06/09/20 Range/Units 06:09 06:09 11:16 WBC 14.75 H (3.8-10.6) k/uL RBC 3.18 L (4.30-5.90) m/uL Hgb 9.9 L (13.0-17.5) gm/dL Hct 30.5 L (39.0-53.0) % Neutrophils # (1.3-7.7) k/uL Anion Gap 2.10 L (4.00-12.00) mmol/L BUN 66.0 H (9.0-27.0) mg/dL BUN/Creatinine Ratio 60.00 H (12.00-20.00) Ratio POC Glucose (mg/dL) 218 H (75-99) mg/dL Calcium 8.3 L (8.7-10.3) mg/dL Assessment and Plan Assessment: -acute hypoxic respiratory failure: Secondary to covid 19 pneumonia patient maintained on vitamin and zinc supplements. Patient currently on IV solu- Medrol. has received 2 doses of Tocilizumab and is continued on Lovenox. ,Patient currently on Airvo and weaning as tolerated. Pulmonary following -Possible hemorrhoids with blood noted in the stool, GI evaluated the patient and ordered anti-hemorrhoidal and no plans for endoscopic intervention, will monitor hemoglobin closely -Type 2 diabetes mellitus uncontrolled elevated blood sugars secondary to systemic steroids, continue with pre-meal, sliding scale, and long-acting, with adjustments made and will increase pre-male and long-acting doses -Hyperkalemia, improved -Hypotonic hyponatremia, improved -Acute renal failure secondary to Covid 19: Improved, current creatinine is 1.1 -Hypertension -DVT subcutaneous Lovenox -Full code Plan: Continue with current medications. Will continue IV Solu-Medrol with vitamin and zinc supplements, and lovenox . patient has received Tocilizumab x2. Pulmonary following . Patient currently on airvo and weaning as tolerated. Very slow to respond. Current settings are flow rate of 35 and FiO2 of 60%. Discussed with the patient to increase activity as tolerated. Hemoglobin is stable at 9.9 with no further bleeding noted in the stool. Will repeat a.m. labs and continue to monitor closely Continue with low potassium diet. Patient response to treatment is slow. Will continue to monitor closely. Prognosis remains guarded.
[2020-06-09 16:58] LABS: Glucose,Whole Blood 281 mg/dL (75-99)
--- NOTE | 2020-06-09 18:51 | P.PN ---
Subjective Progress Note Date: 06/09/20 Principal diagnosis: COVID 19 80-year-old male, who was brought to the emergency department by EMS. The patient apparently has had 2 weeks' worth of increasing shortness of breath, and significant fatigue. The patient also had chest congestion. He had a fever. The patient states that he is just not been feeling well and getting progressively worse. He also apparently had an episode or 2 of diarrhea. The patient denied any chest pain or chest pressure or palpitations. The patient also denied nausea, vomiting, and abdominal pain. Apparently when EMS arrived, the patient's saturations were in the low 80s on room air. For that reason, he was transported in, evaluated, and admitted with a diagnosis of COVID 19 19 pneumonia. The patient does have a history of diabetes, hypertension, and a previous pacemaker insertion. White count was 4.6, hemoglobin 12.5, hematocrit 37.1, and platelet count 153,000. PT, INR, and PTT were all normal. D-dimer was 0.77. Sodium 136, potassium 4.5, chlorides 102, CO2 26, anion gap 8, BUN 47, and creatinine 1.63. Ferritin was 985, LDH 818, C-reactive protein 58, and pro-calcitonin level was 0.12. Chest x-ray did show some interstitial infiltrates. On 05/22/2020 patient seen in follow-up on medical floor. he is on 2 L of oxygen his pulse ox is 90-94%, breathing comfortably, no fever or chills, blood pressure has been stable. Denies any worsening dyspnea or hypoxemia, he has a mild cough, no chest discomfort. He continues on oral Decadron 6 mg daily, IV hydration, vitamins, d-dimer was low at 0.77, patient is on subcu heparin for DVT prophylaxis, pro-calcitonin level was low, inflammatory markers were not significantly elevated on admission. Clinically symptoms have not progressed, and patient will be considered for discharge in next 24 hours. On 06/09/2020 patient seen in follow-up on medical surgical floor, patient remains on irritable at 35 L and FiO2 of 60%, with a pulse ox is ranging between 86-93%, no worsening dyspnea, no chills, hemodynamically stable. Patient is resting in bed, despite requiring high flow oxygen his lung sounds are clear, no significant wheezes or crackles or rhonchi. Patient states he was up in a chair earlier and he felt dizzy, occasional cough with no phlegm production, no chest pain or hemoptysis, his last chest x-ray was on O2 2020 showing patchy bilateral airspace disease, but slightly increased in the mid and lower lungs. Objective - Vital Signs Vital signs: Vital Signs Temp 97.9 F 06/09/20 17:45 Pulse 65 06/09/20 17:45 Resp 18 06/09/20 17:45 BP 125/42 06/09/20 17:45 Pulse Ox 95 06/09/20 17:45 Intake & Output 06/08/20 06/09/20 06/09/20 18:59 06:59 18:59 Intake Total 1080 Output Total 1 600 Balance 1079 -600 Intake: Oral 1080 Output: Urine 600 Stool 1 Other: Voiding Method Bedside Commode Urinal # Voids 2 2 # Bowel Movements 2 - Exam GENERAL EXAM: Alert, pleasant, 80-year-old white male currently on Airvo at 35 L and FiO2 of 60% with a pulse ox between 86-93% comfortable in no apparent distress. HEAD: Normocephalic/atraumatic. EYES: Normal reaction of pupils, equal size. Conjunctiva pink, sclera white. NOSE: Clear with pink turbinates. THROAT: No erythema or exudates. NECK: No masses, no JVD, no thyroid enlargement, no adenopathy. CHEST: No chest wall deformity. Symmetrical expansion. LUNGS: Equal air entry with no crackles, wheeze, rhonchi or dullness. CVS: Regular rate and rhythm, normal S1 and S2, no gallops, no murmurs, no rubs ABDOMEN: Soft, nontender. No hepatosplenomegaly, normal bowel sounds, no guarding or rigidity. EXTREMITIES: No clubbing, no edema, no cyanosis, 2+ pulses and upper and lower extremities. MUSCULOSKELETAL: Muscle strength and tone normal. SPINE: No scoliosis or deformity SKIN: No rashes CENTRAL NERVOUS SYSTEM: Alert and oriented -3. No focal deficits, tone is normal in all 4 extremities. PSYCHIATRIC: Alert and oriented -3. Appropriate affect. Intact judgment and insight. - Labs CBC & Chem 7: 06/09/20 06:09 06/09/20 06:09 Labs: Abnormal Lab Results - Last 24 Hours (Table) 04/06/2506/09/20 06/09/20 Range/Units 20:32 06:09 06:09 WBC 14.75 H (4.50-10.00) X 10*3/uL RBC 3.18 L (4.40-5.60) X 10*6/uL Hgb 9.9 L (13.0-17.0) g/dL Hct 30.5 L (39.6-50.0) % Anion Gap 2.10 L (4.00-12.00) mmol/L BUN 66.0 H (9.0-27.0) mg/dL BUN/Creatinine Ratio 60.00 H (12.00-20.00) Ratio POC Glucose (mg/dL) 178 H (75-99) mg/dL Calcium 8.3 L (8.7-10.3) mg/dL 06/09/20 06/09/20 Range/Units 11:16 16:37 WBC (4.50-10.00) X 10*3/uL RBC (4.40-5.60) X 10*6/uL Hgb (13.0-17.0) g/dL Hct (39.6-50.0) % Anion Gap (4.00-12.00) mmol/L BUN (9.0-27.0) mg/dL BUN/Creatinine Ratio (12.00-20.00) Ratio POC Glucose (mg/dL) 218 H 281 H (75-99) mg/dL Calcium (8.7-10.3) mg/dL Assessment and Plan Plan: Assessment: #1. Acute hypoxic respiratory failure secondary to quit drinking pneumonia, she was not a candidate for Remdesivir, patient did receive Tocilizumab 400 mg IV piggyback 2 on oral 05/26/2020 and 05/27/2020 #2. History of diabetes mellitus type 2 #3. History of hypertension #4. History of chronic sinus disease #5. History of diverticulitis, status post bowel resection #6. Anemia with blood per rectum, GI service is following, anticoagulation is on hold Plan: Continue current medical treatment, wean FiO2, encourage deep breathing and coughing, anticoagulation remains on, hemoglobin is 9.9, GI service is following, no plans for endoscopic studies at this time. Use mechanical DVT prophylaxis, follow d-dimer tomorrow, follow up chest x-ray inflammatory ryder ers, continue Decadron I performed a history & physical examination of the patient and discussed their management with my nurse practitioner, Kay Buchanan. I reviewed the nurse practitioner's note and agree with the documented findings and plan of care. Lung sounds are positive for dim breath sounds throughout the lung waller. The findings and the impression was discussed with the patient. I attest to the documentation by the nurse practitioner. Time with Patient: Less than 30
[2020-06-09 20:54] LABS: Glucose,Whole Blood 249 mg/dL (75-99)
[2020-06-09] MEDS: INSULIN DETEMIR (LEVEMIR) 100 UNIT/ML SYR SQ SCH (21:06)
[2020-06-09] MEDS: HYDROCORTISONE 2.5% RECTAL CREAM 30 GM TUBE RECTAL SCH (21:07)
[2020-06-10 07:03] LABS: Glucose,Whole Blood 69 mg/dL (75-99)
[2020-06-10] MEDS: INSULIN ASPART (NovoLOG) 100 UNIT/ML VIAL SQ SCH ×7 (07:27→21:52)
[2020-06-10 07:33] LABS: Glucose,Whole Blood 85 mg/dL (75-99)
[2020-06-10] MEDS: methylPREDNISolone SOD SUCCI 125 MG/2 ML VIAL IV SCH ×4 (07:45→23:08)
[2020-06-10] MEDS: FAMOTIDINE 20 MG TAB PO SCH (07:45)
[2020-06-10] MEDS: ASCORBIC ACID 500 MG TAB PO SCH (07:45)
[2020-06-10] MEDS: ZINC SULFATE 220 MG CAP PO SCH (07:46)
[2020-06-10] MEDS: glipiZIDE 10 MG TAB PO SCH ×2 (07:46→21:52)
[2020-06-10] MEDS: METOPROLOL SUCCINATE (ER) 50 MG TAB.ER.24H PO SCH (07:46)
[2020-06-10] MEDS: PIOGLITAZONE 30 MG TAB PO SCH (07:46)
[2020-06-10] MEDS: ATORVASTATIN 80 MG TAB PO SCH (07:46)
[2020-06-10] MEDS: CLOPIDOGREL 75 MG TAB PO SCH (07:46)
[2020-06-10] MEDS: HYDROCORTISONE 2.5% RECTAL CREAM 30 GM TUBE RECTAL SCH ×2 (07:56→21:53)
[2020-06-10 11:21] LABS: Basophils # (A) 0.02 X 10*3/uL (0.00-0.10); Basophils % (A) 0.1 %; Eosinophils # (A) 0 X 10*3/uL (0.04-0.35); Eosinophils % (A) 0 %; HCT 31.6 % (39.6-50.0); Lymphocytes # (A) 1.25 X 10*3/uL (0.90-5.00); Lymphocytes % (A) 7.6 %; MCH 30.9 pg (27.0-32.0); MCHC 31.6 g/dL (32.0-37.0); MCV 97.5 fL (80.0-97.0); Mean Platelet Volume 12.1 fL (9.5-12.2); Monocytes # (A) 1.23 X 10*3/uL (0.20-1.00); Monocytes % (A) 7.5 %; Neutrophils # (A) 13.52 X 10*3/uL (1.80-7.70); Neutrophils % (A) 82.8 %; Platelet Count 194 X 10*3/uL (140-440); RBC 3.24 X 10*6/uL (4.40-5.60); RDW 14.6 % (11.5-14.5); WBC 16.35 X 10*3/uL (4.50-10.00)
[2020-06-10 11:23] LABS: Glucose,Whole Blood 193 mg/dL (75-99)
--- NOTE | 2020-06-10 12:16 | XR ---
EXAMINATION TYPE: XR chest 1V portable DATE OF EXAM: 06/10/2020 COMPARISON: 06/06/2020 INDICATION: Covid TECHNIQUE: Single frontal view of the chest is obtained. FINDINGS: The heart size is normal. The pulmonary vasculature is slightly prominent. Mild diffuse increased lung markings are present bilaterally. Findings are similar to comparison. Pac emaker overlies left chest IMPRESSION: 1. Diffuse increased lung markings are nonspecific but can be compatible with atypical pneumonia.
[2020-06-10 13:45] LABS: Folate, Serum 5.4 ng/mL
--- NOTE | 2020-06-10 13:58 | P.PN ---
Subjective Progress Note Date: 06/10/20 Principal diagnosis: Acute hypoxic respiratory failure secondary to covid with 19 pneumonitis. 80-year-old male, who was brought to the emergency department by EMS. The patient apparently has had 2 weeks' worth of increasing shortness of breath, and significant fatigue. The patient also had chest congestion. He had a fever. The patient states that he is just not been feeling well and getting progressively worse. He also apparently had an episode or 2 of diarrhea. The p atient denied any chest pain or chest pressure or palpitations. The patient also denied nausea, vomiting, and abdominal pain. Apparently when EMS arrived, the patient's saturations were in the low 80s on room air. For that reason, he was transported in, evaluated, and admitted with a diagnosis of COVID 19 19 pneumonia. The patient does have a history of diabetes, hypertension, and a previous pacemaker insertion. White count was 4.6, hemoglobin 12.5, hematocrit 37.1, and platelet count 153,000. PT, INR, and PTT were all normal. D-dimer was 0.77. Sodium 136, potassium 4.5, chlorides 102, CO2 26, anion gap 8, BUN 47, and creatinine 1.63. Ferritin was 985, LDH 818, C-reactive protein 58, and pro-calcitonin level was 0.12. Chest x-ray did show some interstitial infiltrates. On 05/22/2020 patient seen in follow-up on medical floor. he is on 2 L of oxygen his pulse ox is 90-94%, breathing comfortably, no fever or chills, blood pressure has been stable. Denies any worsening dyspnea or hypoxemia, he has a mild cough, no chest discomfort. He continues on oral Decadron 6 mg daily, IV hydration, vitamins, d-dimer was low at 0.77, patient is on subcu heparin for DVT prophylaxis, pro-calcitonin level was low, inflammatory markers were not significantly elevated on admission. Clinically symptoms have not progressed, and patient will be considered for discharge in next 24 hours. On 06/09/2020 patient seen in follow-up on medical surgical floor, patient remains on irritable at 35 L and FiO2 of 60%, with a pulse ox is ranging between 86-93%, no worsening dyspnea, no chills, hemodynamically stable. Patient is resting in bed, despite requiring high flow oxygen his lung sounds are clear, no significant wheezes or crackles or rhonchi. Patient states he was up in a chair earlier and he felt dizzy, occasional cough with no phlegm production, no chest pain or hemoptysis, his last chest x-ray was on O2 2020 showing patchy bilateral airspace disease, but slightly increased in the mid and lower lungs. Patient was reevaluated today on 06/10/2020, he is now on 40% FiO2 and 33 L flow using airvo, patient seems to be comfortable, doing quite well, his O2 saturation is 92% present. Patient denies any shortness of breath at rest, he does have dyspnea on exertion. No cough no fever no chills no hemoptysis. WBC count today is 16.3 his platelets are 194. No inflammatory markers ordered today. Chest x-ray from today shows diffuse interstitial infiltrates bilaterally Objective - Vital Signs Vital signs: Vital Signs Temp 98.5 F 06/10/20 10:00 Pulse 65 06/10/20 10:00 Resp 20 06/10/20 10:00 BP 136/81 06/10/20 10:00 Pulse Ox 86 L 06/10/20 13:08 Intake & Output 06/09/20 06/10/20 06/10/20 18:59 06:59 18:59 Output Total 600 900 Balance -600 -900 Output: Urine 600 900 Other: Voiding Method Bedside Commode Urinal # Voids 1 # Bowel Movements 1 - Exam GENERAL EXAM: Alert, pleasant, 80-year-old white male currently on Airvo as noted earlier. HEAD: Normocephalic/atraumatic. HEENT: PERRLA, EOMI, nonicteric, no neck masses, no JVD, no stridor. CHEST: No chest wall deformity. Symmetrical expansion. LUNGS: Equal air entry fine crackles at the bases noted. CVS: Regular rate and rhythm, normal S1 and S2, no gallops, no murmurs, no rubs ABDOMEN: Soft, nontender. No hepatosplenomegaly, normal bowel sounds, no guarding or rigidity. EXTREMITIES: No clubbing, no edema, no cyanosis, 2+ pulses and upper and lower extremities. MUSCULOSKELETAL: Muscle strength and tone normal. SPINE: No scoliosis or deformity SKIN: No rashes CENTRAL NERVOUS SYSTEM: Alert and oriented 3 focal deficits. PSYCHIATRIC: Normal mood, affect and normal mental status examination - Labs CBC & Chem 7: 06/10/20 06:45 06/09/20 06:09 Labs: Abnormal Lab Results - Last 24 Hours (Table) 06/09/20 06/09/20 06/10/20 Range/Units 16:37 20:52 06:45 WBC 16.35 H (4.50-10.00) X 10*3/uL RBC 3.24 L (4.40-5.60) X 10*6/uL Hgb 10.0 L (13.0-17.0) g/dL Hct 31.6 L (39.6-50.0) % MCV 97.5 H (80.0-97.0) fL MCHC 31.6 L (32.0-37.0) g/dL RDW 14.6 H (11.5-14.5) % Immature Gran # 0.33 H (0.00-0.04) X 10*3/uL Neutrophils # 13.52 H (1.80-7.70) X 10*3/uL Monocytes # 1.23 H (0.20-1.00) X 10*3/uL Eosinophils # 0 L (0.04-0.35) X 10*3/uL D-Dimer (<0.60) mg/L FEU POC Glucose (mg/dL) 281 H 249 H (75-99) mg/dL 06/10/20 06/10/20 06/10/20 Range/Units 06:45 06:58 11:16 WBC (4.50-10.00) X 10*3/uL RBC (4.40-5.60) X 10*6/uL Hgb (13.0-17.0) g/dL Hct (39.6-50.0) % MCV (80.0-97.0) fL MCHC (32.0-37.0) g/dL RDW (11.5-14.5) % Immature Gran # (0.00-0.04) X 10*3/uL Neutrophils # (1.80-7.70) X 10*3/uL Monocytes # (0.20-1.00) X 10*3/uL Eosinophils # (0.04-0.35) X 10*3/uL D-Dimer 1.12 H (<0.60) mg/L FEU POC Glucose (mg/dL) 69 L 193 H (75-99) mg/dL Assessment and Plan Assessment: Impression: Acute hypoxic respiratory failure secondary to cope at 19 pneumonia. Patient did receive toci Type 2 diabetes. Benign essential hypertension. History of bowel resection for diverticulitis. Lower GI bleeding, anticoagulation is presently on hold. Being addressed by gastroenterology. Recommendation: Continue present supportive care measures Continue oxygen and titrate accordingly. GI to evaluate for his GI bleeding. Continue DVT prophylaxis. Continue to follow markers. Continue Decadron. We will continue to follow, patient is not ready for discharge at this time. Time with Patient: Less than 30
--- NOTE | 2020-06-10 14:10 | P.PN ---
Subjective Progress Note Date: 06/10/20 Principal diagnosis: Blood per rectum Should seen and examined lying in bed. He still remains on high flow oxygen. He denies any further bowel movements her rectal bleeding. His hemoglobin is stable at 10.0. He denies any abdominal pain, nausea, or vomiting. Objective - Vital Signs Vital signs: Vital Signs Temp 98.4 F 06/10/20 06:00 Pulse 60 06/10/20 06:00 Resp 17 06/10/20 06:00 BP 103/53 06/10/20 06:00 Pulse Ox 93 L 06/10/20 06:00 Intake & Output 06/09/20 06/10/20 06/10/20 18:59 06:59 18:59 Output Total 600 900 Balance -600 -900 Output: Urine 600 900 Other: Voiding Method Bedside Commode Urinal # Voids 1 # Bowel Movements 1 - Exam General appearance: The patient is alert, oriented, appears in no acute distress. HET: Head is normocephalic and atraumatic. Conjunctiva pink. Sclera anicteric. Neck: Supple without lymphadenopathy. Abdomen: Soft, nontender, nondistended with bowel sounds. No guarding or rigidity. Extremities: Normal skin color and turgor. No pedal edema Skin: No rashes, no jaundice Neurological: No focal deficits. Alert and oriented 3. - Labs CBC & Chem 7: 06/10/20 06:45 06/09/20 06:09 Labs: Abnormal Lab Results - Last 24 Hours (Table) 06/09/20 06/09/20 06/09/20 Range/Units 06:09 11:16 16:37 D-Dimer (<0.60) mg/L FEU Anion Gap 2.10 L (4.00-12.00) mmol/L BUN 66.0 H (9.0-27.0) mg/dL BUN/Creatinine Ratio 60.00 H (12.00-20.00) Ratio POC Glucose (mg/dL) 218 H 281 H (75-99) mg/dL Calcium 8.3 L (8.7-10.3) mg/dL 06/09/20 06/10/20 06/10/20 Range/Units 20:52 06:45 06:58 D-Dimer 1.12 H (<0.60) mg/L FEU Anion Gap (4.00-12.00) mmol/L BUN (9.0-27.0) mg/dL BUN/Creatinine Ratio (12.00-20.00) Ratio POC Glucose (mg/dL) 249 H 69 L (75-99) mg/dL Calcium (8.7-10.3) mg/dL Assessment and Plan (1) Anemia associated with acute blood loss Narrative/Plan: 80-year-old male with multiple medical comorbidities currently receiving treatment for Covid 19 pneumonia. Patient had witnessed episodes of bright red blood per rectum on the medical floor. Currently improved and is stable at 9.9, was initially 14 on presentation. Patient does have a history of prior bowel resection approximate 40 years ago for consultative diverticulitis. No further bleeding today. No abdominal pain reported. He is tolerating his diet. Unclear etiology, may be related to perirectal and hemorrhoidal disease, cannot rule out anastomotic site ulcer, ischemic colitis less likely given absence of abdominal pain, or other etiology. Current Visit: Yes Status: Acute Code(s): D62 - ACUTE POSTHEMORRHAGIC ANEMIA SNOMED Code(s): 267782733 (2) Blood per rectum Current Visit: Yes Status: Acute Code(s): K62.5 - HEMORRHAGE OF ANUS AND RECTUM SNOMED Code(s): 09649523 Plan: 1. Supportive care 2. Okay for diet as tolerated 3. Continue to monitor CBC and transfuse as needed 4. Continue to monitor for signs and symptoms of GI bleeding 5. Local hemorrhoidal care with topical steroid therapy ordered 6. Anemia laboratory evaluation ordered Extensive discussion with the patient regarding possible treatment options at this time the patient is not interested in any endoscopy, continue to monitor and reevaluated further bleeding or fall in hemoglobin Thank you for this consultation, we will be on standby
[2020-06-10 14:20] LABS: % Iron Saturation 35.99 (15.00-50.00); African American GFR (CKD) 65.3 (60.0-200.0); C Reactive Protein <0.4 mg/dL (0.0-0.8); Calcium 8.3 mg/dL (8.7-10.3); Carbon Dioxide 27.7 mmol/L (21.6-31.8); Chloride 108 mmol/L (96-109); Glucose 52 mg/dL (70-110); Iron 104 ug/dL (65-175); LDH 425 U/L (120-246); Non-African American GFR(CKD) 56.4 (60.0-200.0); Potassium 5.5 mmol/L (3.5-5.5); Sodium 140 mmol/L (135-145); Total Iron Binding Capacity 289 ug/dL (228-460)
--- NOTE | 2020-06-10 14:44 | P.PN ---
Subjective Progress Note Date: 06/10/20 80-year-old male who presents emergency Department stating that he has had shortness of breath and feeling fatigued for at least 2 weeks. Patient states he has had exposure to COVID . Patient states he has had a fever. Patient states she's also states and smile. Patient also states she's had diarrhea. Patient denies any chest pain or palpitations. Patient denies any abdominal pain patient denies nausea vomiting diarrhea. According to EMS with the patient was coming in he was satting in the low 80s. Patient is currently on a few liters of oxygen and sat in mid 90s. Patient is a diabetic and has high blood pressure. Patient also has a pacemaker. Patient is presently on 2 L of oxygen was requiring 4 L yesterday. Patient was started on IV fluids patient creatinine went up to 1.6 baseline is around 1. Patient's blood sugars are highly elevated. Patient tests positive for Covid. 05/22/2020 Patient is presently on 2 L of oxygen appears to be doing better possibility of discharge tomorrow. Creatinine went up a bit to 1.6 baseline is around the 1. Patient was started on IV fluids will recheck the basic metabolic profile tomorrow. 05/23/2020 Patient seen and evaluated in follow-up continues to be on 2 L of oxygen and becomes dyspneic with exertion. Patient states he does not know wear oxygen at home. Pulmonary is following. Patient's blood sugars are elevated and will continue sliding scale at this time as patient is on steroids. Potassium was found to be slightly elevated at 5.5 and was given a dose of Kayexalate. Will repeat a.m. labs. Instructed and encouraged the patient to get up and increase activity as tolerated. 05/24/2020 Patient is presently in 2 does of hours and doing clinically well. Patient is on dexamethasone, vitamin supplements, subcutaneous heparin. No worsening shortness of breath, cough or congestion. D-dimer 1.02. Sodium 145. Potassium 5.1. Creatinine 1.3. LDH 485. C-reactive protein 4.4. His creatinine actually went up a little bit from 1.19-1.3 05/25/2020 Patient is fairly stable no significant improvement or worsening. Patient is still on 2 L of oxygen. We'll monitor him 1 more night. Continues to require oxygen patient probably can be discharged on 2 L tomorrow this can be tapered or discontinued as an outpatient. Patient d-dimer is bit worse compared to admission. Although other inflammatory markers are better 05/26/2020 Patient is seen this morning currently on nonrebreather and airvo as his oxygen was found to be 89% on 6 L of oxygen. Pulmonary is following. D-dimer has gone up at 1.70 along with lactate dehydrogenase at 491 and CRP is 9.4. Blood sugars continue to be elevated and patient is maintained on sliding scale along with long-acting and pre-meal insulin and will continue at this time. Patient continues on vitamin and zinc supplements along with Lovenox and dexamethasone daily. Patient is scheduled to receive Tocilizumab today. Will continue to monitor closely based on the clinical course of the patient. Patient continues to be weak and was seen and evaluated by physical therapy recommending subacute rehab and patient is now agreeable and a social work consult was placed. 05/27/2020 Patient is seen and evaluated this morning with no improvement in respiratory status. Patient remains on Airvo with supplemental nonrebreather. Patient is day 2 of receiving Tocilizumab. Will repeat a.m. chest x-ray along with inflammatory markers. D-dimer today was 1.60. White blood count has gone up in is 10.8, hemoglobin is 12.6. Patient is afebrile. To continue with dexametha sone, Lovenox, vitamin C and zinc supplements. Pulmonary is following. Had a discussion with the patient about CODE STATUS along with his son Mauricio and currently wish to remain a full code until talking with family member more extensively about the situation. Will continue to monitor closely. Prognosis remains guarded. 05/28/2020 Patient is seen this morning status post getting up to the bathroom and continues to be extremely dyspneic with any exertion and was found to be low 80s to 83% oxygenation. Patient continues on the airvo with a flow rate of 60 and FiO2 of 64 and is currently 91%. Patient denies any chest pain or palpitations. Patient is afebrile. Patient reports to tolerating diet with no nausea or vomiting noted. D-dimer continues to be elevated at 2.56, sodium today is 140 with a potassium of 5.1 and creatinine is 1.2. Blood sugars on the lower side this morning and will continue to monitor closely and treat accordingly with sliding scale. Inflammatory markers trending down. Pulmonary following closely. Chest x-ray today shows continued bibasilar infiltrates which are nonspecific but worsening. 05/29/2020 Patient is seen in follow-up this morning and continues to be on Airvo no significant change. Patient was on dexamethasone all being transitioned to IV Solu-Medrol and will continue with Accu-Cheks and close glycemic control with pre-meal, long-acting, and sliding scale. White blood count is 13.9, hemoglobin is stable at 13.2, d-dimer is 2.95, sodium is 137, potassium is 5.1, creatinine slightly elevated at 1.24. Inflammatory markers have gone up. Patient is sitting up in the chair and denies any chest pain or worsening shortness of breath. Patient states he feels he is about the same. Patient also states he has been sleeping a lot and tolerating diet with no reports of nausea or vomiting. Discussed with patient about increasing activity as tolerated although patient is extremely dyspneic with minimal exertion. 05/30/2020 Patient is seen and evaluated this morning and follow-up with no acute overnight issues. Patient continues to be on Airvo with a flow rate of 60 and FiO2 of 70 and is being closely monitored. Transitioned to IV Solu-Medrol and will continue at this time. Blood sugars elevated and increasing long-acting and pre-meal insulins and will continue sliding scale along with oral antidiabetic agents. Need tighter glycemic control. Patient has been eating 100% of all meals with no reports of nausea or vomiting noted. Patient clinically looking better and chest x-ray displays stable infiltrates. D-dimer slightly trending down along with inflammatory markers. Creatinine is stable at 1.2 and potassium is 5.5. Will continue to monitor vital signs and labs closely. On 05/31/2020 -patient is seen and examined at the bedside. He is sitting up in the chair and is on Airvo 60 L with FiO2 of 70%, saturating about 90%. He still complains of exertional dyspnea and cough at times. Denies having any fevers chills or rigors. He complains of generalized weakness. On reviewing his vitals temperature of 97.9, heart rate 63, respiratory rate 18, blood pressure 120 x 62 . On reviewing his labs white count of 22.9, hemoglobin 13, platelets 299. Sodium 136, potassium 5.6, chloride 104, bicarb 26, BUN 55, creatinine 1.15. Blood sugars running on the higher side around 300s. Patient had a chest x-ray done this morning showing mild to moderate mid and lower zone infiltrates. On 06/01/2020 -patient is seen and examined at bedside. He is sitting up in a chair at fifth high flow oxygen at 60 L FiO2 of 70% and pulse ox at 94%. He is still having exertional dyspnea and complains of generalized weakness. He states that he is tired of using the oxygen. On reviewing the vitals T-max of 97.9, heart rate 60, respiratory 19, blood pressure 130/60. Reviewing the labs LDH 378, CRP less than 0.04 and D-dimer of 1.53. All medications have been reviewed and pertinent changes made. 06/02/2020 Patient is seen and evaluated this morning with no acute overnight issues. Patient continues to sit up in the chair throughout most of the day as he states his breathing is better. Patient continues to be on Airvo and flow rate has been decreased to 40 with an FiO2 of 70% and is currently 92%. Patient con tinues to have dyspnea with minimal exertion and continues to have weakness and will likely require some form rehab once stabilized and discharged. PT/OT to continue to follow. White blood count trending down at 18.64 and hemoglobin is stable at 13.2. D-dimer is 1.60 with a sodium of 136 and potassium was found to be 6.1 and being corrected and will repeat a.m. labs. Creatinine is 1.2. Blood sugars continue to be elevated and will continue with sliding scale and long- acting and monitor closely. LDH trending back up at 503 and will monitor closely. CRP is 0.4. 06/03/2020 Patient's potassium is still high received the calcium gluconate and insulin as today. Will order capsulate. This is nonhemolyzed sample patient was started on low potassium diet. Patient remains on Airvo , 40 L and 60% FiO2 which is better compared to yesterday and saturating better appears to have been some improvement. 06/04/2020 Patient is seen and evaluated this morning continues to be sitting up in the chair. Patient states he feels his breathing is improved but "I'm still here in the hospital". Patient has continued weakness and has been working with PT/OT therapy. Patient does require assistance to the bedside commode and will have PT/OT therapy reevaluate with the possibility of ECF once stabilized and discharged. Sodium today is 138 with a potassium of 5.2 and current creatinine is 1.3. Blood sugars being closely monitored and will continue with current medication regimen. Respiratory slowly weaning Airvo settings and is maintained on a flow rate of 35 with an FiO2 of 65%. Pulmonary is following. 06/05/2020 Patient is seen this morning continues to be on Airvo and slow to respond. Current settings have a flow rate of 36 and FiO2 of 60%. Patient denies any worsening shortness of breath. White blood count trending down at 15.4, hemoglobin is stable at 14.2, sodium is 135, potassium is 5.2, current creatinine slightly improved at 1.12. 06/06/2020 Patient is seen and evaluated and follow-up continues to be on airvo requiring more oxygen support with a flow rate of 50 and an FiO2 of 70%. D-dimer continues to trend down at 1.58, sodium is 137, potassium is 4.7, current creatinine is 1.22. Blood sugars have been variable and will continue with current regimen and monitor closely. Continue with Accu-Cheks before meals and at bedtime. Patient is afebrile. 06/07/2020 Patient's overall respiratory status remains the patient is oxygen flow rate of 40 L with FiO2 of 60% may be a mild improvement but saturations are going down again. Patient is already on low potassium diet not an ALE inhibitor potassium supplementation will repeat basic metabolic profile again tomorrow. Patient is not on any IV fluids is eating well. 06/08/2020 Patient is doing bit better today his oxygen requirements are going down patient is on Airvo and 50% FiO2. Blood glucose is bit elevated. Patient had an episode of GI bleed will continue with anticoagulation and aspirin gastro- oncology will be consulted probably hemorrhoidal bleed patient had blood in the stools. 06/09/2020 Patient is seen and evaluated and follow-up with no acute overnight issues. Apparently patient had a few episodes of blood in the stool and was evaluated by GI and no plans for endoscopic intervention at this time as patient is not interested. Patient denies any pain or discomfort. Hemoglobin today is able at 9.9 and will continue to monitor closely. Patient continues on Airvo the flow rate of 35 and FiO2 of 60% and currently 93%. Patient is afebrile. Discussed with the patient about increasing activity as tolerated and sitting up in the chair more often. 06/10/2020 Patient is seen and evaluated and follow-up currently asleep but easily arousable. Per nursing staff patient has not been getting up out of the bed only sitting at the bedside for meals and continues to be fatigued and short of breath. Patient is maintained on a flow rate of 30 and an FiO2 of 40% and currently 86% oxygen saturation on the Airvo. Pulmonary is following. Patient white count blood count going up at 16.35, hemoglobin is 10.0 with no active bleeding noted. D-dimer is 1.12 and inflammatory markers trending down. Sodium today is 140 with a potassium of 5.5 and current creatinine is 1.2. Patient to continue low potassium diet and monitor labs closely. Patient needs aggressive PT/OT therapy daily as he continues to be weak and has been mostly lying in the bed. Will discuss with PT/OT. Constitutional: reports of fatigue, denied any fever. Cardio vascular: denied any chest pain, palpitations Gastrointestinal denied any nausea vomiting, denies any bleeding in the stool today Pulmonary: Reports continued shortness of breath no worse Neurologic reports generalized weakness All inpatient medications were reviewed and appropriate changes in these medications as dictated in the interval history and assessment and plan. Objective - Vital Signs Vital signs: Vital Signs Temp 98.5 F 06/10/20 10:00 Pulse 65 06/10/20 10:00 Resp 20 06/10/20 10:00 BP 136/81 06/10/20 10:00 Pulse Ox 86 L 06/10/20 13:08 Intake & Output 06/09/20 06/10/20 06/10/20 18:59 06:59 18:59 Output Total 600 900 Balance -600 -900 Output: Urine 600 900 Other: Voiding Method Bedside Commode Urinal # Voids 1 # Bowel Movements 1 - Exam GENERAL: The patient is alert and oriented x3, not in any acute distress. Obese, currently on airvo at a flow rate of 30 with an FiO2 of 40, continue to wean as tolerated HEENT: Pupils are round and equally reacting to light. EOMI. No scleral icterus. No conjunctival pallor. Normocephalic, atraumatic. No pharyngeal erythema. No thyromegaly. CARDIOVASCULAR: S1 and S2 present. No murmurs, rubs, or gallops. PULMONARY: Diminished breath sounds bilaterally with no wheezing noted, coarse rhonchi noted bilaterally ABDOMEN: Soft, nontender, nondistended, normoactive bowel sounds. No palpable organomegaly. MUSCULOSKELETAL: No joint swelling or deformity. EXTREMITIES: No cyanosis, clubbing, or pedal edema. NEUROLOGICAL: Gross neurological examination did not reveal any focal deficits. Diffuse weakness SKIN: No rashes. - Labs CBC & Chem 7: 06/10/20 06:45 06/10/20 06:44 Labs: Abnormal Lab Results - Last 24 Hours (Table) 06/09/20 06/09/20 06/10/20 Range/Units 16:37 20:52 06:44 WBC (4.50-10.00) X 10*3/uL RBC (4.40-5.60) X 10*6/uL Hgb (13.0-17.0) g/dL Hct (39.6-50.0) % MCV (80.0-97.0) fL MCHC (32.0-37.0) g/dL RDW (11.5-14.5) % Immature Gran # (0.00-0.04) X 10*3/uL Neutrophils # (1.80-7.70) X 10*3/uL Monocytes # (0.20-1.00) X 10*3/uL Eosinophils # (0.04-0.35) X 10*3/uL D-Dimer (<0.60) mg/L FEU BUN 60.0 H (9.0-27.0) mg/dL Est GFR (CKD-EPI)NonAf 56.4 L (60.0-200.0) BUN/Creatinine Ratio 50.00 H (12.00-20.00) Ratio Glucose 52 L (70-110) mg/dL POC Glucose (mg/dL) 281 H 249 H (75-99) mg/dL Calcium 8.3 L (8.7-10.3) mg/dL Ferritin 344.0 H (22.0-322.0) ng/mL Lactate Dehydrogenase 425 H (120-246) U/L 06/10/20 06/10/20 06/10/20 Range/Units 06:45 06:45 06:58 WBC 16.35 H (4.50-10.00) X 10*3/uL RBC 3.24 L (4.40-5.60) X 10*6/uL Hgb 10.0 L (13.0-17.0) g/dL Hct 31.6 L (39.6-50.0) % MCV 97.5 H (80.0-97.0) fL MCHC 31.6 L (32.0-37.0) g/dL RDW 14.6 H (11.5-14.5) % Immature Gran # 0.33 H (0.00-0.04) X 10*3/uL Neutrophils # 13.52 H (1.80-7.70) X 10*3/uL Monocytes # 1.23 H (0.20-1.00) X 10*3/uL Eosinophils # 0 L (0.04-0.35) X 10*3/uL D-Dimer 1.12 H (<0.60) mg/L FEU BUN (9.0-27.0) mg/dL Est GFR (CKD-EPI)NonAf (60.0-200.0) BUN/Creatinine Ratio (12.00-20.00) Ratio Glucose (70-110) mg/dL POC Glucose (mg/dL) 69 L (75-99) mg/dL Calcium (8.7-10.3) mg/dL Ferritin (22.0-322.0) ng/mL Lactate Dehydrogenase (120-246) U/L 06/10/20 Range/Units 11:16 WBC (4.50-10.00) X 10*3/uL RBC (4.40-5.60) X 10*6/uL Hgb (13.0-17.0) g/dL Hct (39.6-50.0) % MCV (80.0-97.0) fL MCHC (32.0-37.0) g/dL RDW (11.5-14.5) % Immature Gran # (0.00-0.04) X 10*3/uL Neutrophils # (1.80-7.70) X 10*3/uL Monocytes # (0.20-1.00) X 10*3/uL Eosinophils # (0.04-0.35) X 10*3/uL D-Dimer (<0.60) mg/L FEU BUN (9.0-27.0) mg/dL Est GFR (CKD-EPI)NonAf (60.0-200.0) BUN/Creatinine Ratio (12.00-20.00) Ratio Glucose (70-110) mg/dL POC Glucose (mg/dL) 193 H (75-99) mg/dL Calcium (8.7-10.3) mg/dL Ferritin (22.0-322.0) ng/mL Lactate Dehydrogenase (120-246) U/L Assessment and Plan Assessment: -acute hypoxic respiratory failure: Secondary to covid 19 pneumonia patient maintained on vitamin and zinc supplements. Patient currently on IV solu- Medrol. has received 2 doses of Tocilizumab and is continued on Lovenox. ,Patient currently on Airvo and weaning as tolerated. Will ask us with respiratory about attempting high flow nasal cannula. Pulmonary following -Possible hemorrhoids with blood noted in the stool, GI evaluated the patient and ordered anti-hemorrhoidal and no plans for endoscopic intervention, will monitor hemoglobin closely, hemoglobin is stable at 10.0 -Type 2 diabetes mellitus uncontrolled elevated blood sugars secondary to systemic steroids, continue with pre-meal, sliding scale, and long-acting, with adjustments made and will increase pre-male and long-acting doses -Hyperkalemia, improved -Hypotonic hyponatremia, improved -Acute renal failure secondary to Covid 19: Improved, current creatinine is 1.2 -Hypertension -DVT subcutaneous Lovenox -Full code Plan: Continue with current medications. Will continue IV Solu-Medrol with vitamin and zinc supplements, and lovenox . patient has received Tocilizumab x2. Pulmonary following. Potential he transitioned oral prednisone taper tomorrow. Patient currently on airvo and weaning as tolerated. Very slow to respond. Current settings are flow rate of 30 and FiO2 of 40%. Discussed with the patient to increase activity as tolerated. Will need aggressive PT/OT and have them see him daily. Hemoglobin is stable at 10.0 with no further bleeding noted in the stool. Will repeat a.m. labs and continue to monitor closely Continue with low potassium diet. Patient response to treatment is slow. Will continue to monitor closely. Prognosis remains guarded.
[2020-06-10 17:13] LABS: Glucose,Whole Blood 228 mg/dL (75-99)
[2020-06-10 20:44] LABS: Glucose,Whole Blood 256 mg/dL (75-99)
[2020-06-10] MEDS: INSULIN DETEMIR (LEVEMIR) 100 UNIT/ML SYR SQ SCH (21:53)
[2020-06-11 07:24] LABS: Glucose,Whole Blood 163 mg/dL (75-99)
[2020-06-11] MEDS: FAMOTIDINE 20 MG TAB PO SCH (07:37)
[2020-06-11] MEDS: methylPREDNISolone SOD SUCCI 125 MG/2 ML VIAL IV SCH (07:37)
[2020-06-11] MEDS: ZINC SULFATE 220 MG CAP PO SCH (07:38)
[2020-06-11] MEDS: glipiZIDE 10 MG TAB PO SCH ×2 (07:38→20:48)
[2020-06-11] MEDS: ASCORBIC ACID 500 MG TAB PO SCH (07:38)
[2020-06-11] MEDS: INSULIN ASPART (NovoLOG) 100 UNIT/ML VIAL SQ SCH ×7 (07:38→22:26)
[2020-06-11] MEDS: CLOPIDOGREL 75 MG TAB PO SCH (07:38)
[2020-06-11] MEDS: METOPROLOL SUCCINATE (ER) 50 MG TAB.ER.24H PO SCH (07:38)
[2020-06-11] MEDS: ATORVASTATIN 80 MG TAB PO SCH (07:38)
[2020-06-11] MEDS: PIOGLITAZONE 30 MG TAB PO SCH (07:39)
[2020-06-11] MEDS: HYDROCORTISONE 2.5% RECTAL CREAM 30 GM TUBE RECTAL SCH ×2 (07:50→20:49)
[2020-06-11 08:58] LABS: African American GFR (CKD) 77 (>60 ml/min/1.73 sqM); Anion Gap 1 mmol/L; Blood Urea Nitrogen 54 mg/dL (9-20); Calcium 7.8 mg/dL (8.4-10.2); Carbon Dioxide 26 mmol/L (22-30); Chloride 108 mmol/L (98-107); Glucose 150 mg/dL (74-99); Non-African American GFR(CKD) 67 (>60 ml/min/1.73 sqM); Potassium 5.3 mmol/L (3.5-5.1); Sodium 135 mmol/L (137-145)
--- NOTE | 2020-06-11 11:25 | P.PN ---
Subjective Progress Note Date: 06/11/20 Principal diagnosis: Acute hypoxic respiratory failure secondary to covid with 19 pneumonitis. 80-year-old male, who was brought to the emergency department by EMS. The patient apparently has had 2 weeks' worth of increasing shortness of breath, and significant fatigue. The patient also had chest congestion. He had a fever. The patient states that he is just not been feeling well and getting progressively worse. He also apparently had an episode or 2 of diarrhea. The p atient denied any chest pain or chest pressure or palpitations. The patient also denied nausea, vomiting, and abdominal pain. Apparently when EMS arrived, the patient's saturations were in the low 80s on room air. For that reason, he was transported in, evaluated, and admitted with a diagnosis of COVID 19 19 pneumonia. The patient does have a history of diabetes, hypertension, and a previous pacemaker insertion. White count was 4.6, hemoglobin 12.5, hematocrit 37.1, and platelet count 153,000. PT, INR, and PTT were all normal. D-dimer was 0.77. Sodium 136, potassium 4.5, chlorides 102, CO2 26, anion gap 8, BUN 47, and creatinine 1.63. Ferritin was 985, LDH 818, C-reactive protein 58, and pro-calcitonin level was 0.12. Chest x-ray did show some interstitial infiltrates. On 05/22/2020 patient seen in follow-up on medical floor. he is on 2 L of oxygen his pulse ox is 90-94%, breathing comfortably, no fever or chills, blood pressure has been stable. Denies any worsening dyspnea or hypoxemia, he has a mild cough, no chest discomfort. He continues on oral Decadron 6 mg daily, IV hydration, vitamins, d-dimer was low at 0.77, patient is on subcu heparin for DVT prophylaxis, pro-calcitonin level was low, inflammatory markers were not significantly elevated on admission. Clinically symptoms have not progressed, and patient will be considered for discharge in next 24 hours. On 06/09/2020 patient seen in follow-up on medical surgical floor, patient remains on irritable at 35 L and FiO2 of 60%, with a pulse ox is ranging between 86-93%, no worsening dyspnea, no chills, hemodynamically stable. Patient is resting in bed, despite requiring high flow oxygen his lung sounds are clear, no significant wheezes or crackles or rhonchi. Patient states he was up in a chair earlier and he felt dizzy, occasional cough with no phlegm production, no chest pain or hemoptysis, his last chest x-ray was on O2 2020 showing patchy bilateral airspace disease, but slightly increased in the mid and lower lungs. Patient was reevaluated today on 06/10/2020, he is now on 40% FiO2 and 33 L flow using airvo, patient seems to be comfortable, doing quite well, his O2 saturation is 92% present. Patient denies any shortness of breath at rest, he does have dyspnea on exertion. No cough no fever no chills no hemoptysis. WBC count today is 16.3 his platelets are 194. No inflammatory markers ordered today. Chest x-ray from today shows diffuse interstitial infiltrates bilaterally Patient was reevaluated today on 06/11/2020, patient has been tapered down to 6 L high flow nasal cannula, and his O2 saturations 97%. Patient is feeling much better, breathing a lot easier, hardly any cough no wheezing, and he has no other constitutional symptoms. Basic metabolic profile is normal today, BUN is 54 creatinine 1.05. Sugar is 150. Chest x-ray from yesterday continues to show bilateral significant airspace disease and opacities left more so than right. Patient was seen by GI on consultation for his rectal bleeding, and the recommendation was to monitor closely transfuse as needed and local hemorrhoidal care with topical steroids therapy ordered. No endoscopy is recommended because the patient is not interested. Objective - Vital Signs Vital signs: Vital Signs Temp 97.9 F 06/11/20 06:00 Pulse 90 06/11/20 06:00 Resp 18 06/11/20 06:00 BP 142/60 06/11/20 06:00 Pulse Ox 97 06/11/20 06:00 Intake & Output 06/10/20 06/11/20 06/11/20 18:59 06:59 18:59 Intake Total 540 Output Total 800 325 Balance -800 215 Intake: Oral 540 Output: Urine 800 325 Other: Voiding Method Bedside Commode Urinal # Voids 2 - Exam GENERAL EXAM: Alert, pleasant, 80-year-old white male currently on 6 L high flow nasal cannula HEAD: Normocephalic/atraumatic. HEENT: PERRLA, EOMI, nonicteric, no neck masses, no JVD, no stridor. CHEST: No chest wall deformity. Symmetrical expansion. LUNGS: Equal air bilateral crackles noted posteriorly. CVS: Regular rate and rhythm, normal S1 and S2, no gallops, no murmurs, no rubs ABDOMEN: Soft, nontender. No hepatosplenomegaly, normal bowel sounds, no guarding or rigidity. EXTREMITIES: No clubbing, no edema, no cyanosis, 2+ pulses and upper and lower extremities. MUSCULOSKELETAL: Muscle strength and tone normal. SPINE: No scoliosis or deformity SKIN: No rashes CENTRAL NERVOUS SYSTEM: Alert and oriented 3 focal deficits. PSYCHIATRIC: Normal mood, affect and normal mental status examination - Labs CBC & Chem 7: 06/10/20 06:45 06/11/20 07:04 Labs: Abnormal Lab Results - Last 24 Hours (Table) 06/10/20 06/10/20 06/10/20 Range/Units 06:44 06:45 11:16 WBC 16.35 H (4.50-10.00) X 10*3/uL RBC 3.24 L (4.40-5.60) X 10*6/uL Hgb 10.0 L (13.0-17.0) g/dL Hct 31.6 L (39.6-50.0) % MCV 97.5 H (80.0-97.0) fL MCHC 31.6 L (32.0-37.0) g/dL RDW 14.6 H (11.5-14.5) % Immature Gran # 0.33 H (0.00-0.04) X 10*3/uL Neutrophils # 13.52 H (1.80-7.70) X 10*3/uL Monocytes # 1.23 H (0.20-1.00) X 10*3/uL Eosinophils # 0 L (0.04-0.35) X 10*3/uL Sodium (137-145) mmol/L Potassium (3.5-5.1) mmol/L Chloride (98-107) mmol/L BUN 60.0 H (9.0-27.0) mg/dL Est GFR (CKD-EPI)NonAf 56.4 L (60.0-200.0) BUN/Creatinine Ratio 50.00 H (12.00-20.00) Ratio Glucose 52 L (70-110) mg/dL POC Glucose (mg/dL) 193 H (75-99) mg/dL Calcium 8.3 L (8.7-10.3) mg/dL Ferritin 344.0 H (22.0-322.0) ng/mL Lactate Dehydrogenase 425 H (120-246) U/L 06/10/20 06/10/20 06/11/20 Range/Units 16:56 20:42 07:04 WBC (4.50-10.00) X 10*3/uL RBC (4.40-5.60) X 10*6/uL Hgb (13.0-17.0) g/dL Hct (39.6-50.0) % MCV (80.0-97.0) fL MCHC (32.0-37.0) g/dL RDW (11.5-14.5) % Immature Gran # (0.00-0.04) X 10*3/uL Neutrophils # (1.80-7.70) X 10*3/uL Monocytes # (0.20-1.00) X 10*3/uL Eosinophils # (0.04-0.35) X 10*3/uL Sodium 135 L (137-145) mmol/L Potassium 5.3 H (3.5-5.1) mmol/L Chloride 108 H (98-107) mmol/L BUN 54 H (9.0-27.0) mg/dL Est GFR (CKD-EPI)NonAf (60.0-200.0) BUN/Creatinine Ratio (12.00-20.00) Ratio Glucose 150 H (70-110) mg/dL POC Glucose (mg/dL) 228 H 256 H (75-99) mg/dL Calcium 7.8 L (8.7-10.3) mg/dL Ferritin (22.0-322.0) ng/mL Lactate Dehydrogenase (120-246) U/L 06/11/20 Range/Units 07:23 WBC (4.50-10.00) X 10*3/uL RBC (4.40-5.60) X 10*6/uL Hgb (13.0-17.0) g/dL Hct (39.6-50.0) % MCV (80.0-97.0) fL MCHC (32.0-37.0) g/dL RDW (11.5-14.5) % Immature Gran # (0.00-0.04) X 10*3/uL Neutrophils # (1.80-7.70) X 10*3/uL Monocytes # (0.20-1.00) X 10*3/uL Eosinophils # (0.04-0.35) X 10*3/uL Sodium (137-145) mmol/L Potassium (3.5-5.1) mmol/L Chloride (98-107) mmol/L BUN (9.0-27.0) mg/dL Est GFR (CKD-EPI)NonAf (60.0-200.0) BUN/Creatinine Ratio (12.00-20.00) Ratio Glucose (70-110) mg/dL POC Glucose (mg/dL) 163 H (75-99) mg/dL Calcium (8.7-10.3) mg/dL Ferritin (22.0-322.0) ng/mL Lactate Dehydrogenase (120-246) U/L Assessment and Plan Assessment: Impression: Acute hypoxic respiratory failure secondary to covid 19 pneumonia Type 2 diabetes. Benign essential hypertension. History of bowel resection for diverticulitis. Lower GI bleeding, anticoagulation is presently on hold. Being addressed by gastroenterology. Recommendation: Continue present supportive care measures Continue oxygen and titrate accordingly. Patient could possibly tolerate going down below 6 L high flow nasal cannula, and if that is the case we can start discussing discharge planning. GI to evaluate for his GI bleeding. Continue DVT prophylaxis. Continue Decadron. Patient will be cleared from our perspective for discharge once his oxygen requirement is less then 6 L nasal cannula. Time with Patient: Less than 30
[2020-06-11 12:07] LABS: Glucose,Whole Blood 252 mg/dL (75-99)
--- NOTE | 2020-06-11 15:16 | P.PN ---
Subjective Progress Note Date: 06/11/20 80-year-old male who presents emergency Department stating that he has had shortness of breath and feeling fatigued for at least 2 weeks. Patient states he has had exposure to COVID . Patient states he has had a fever. Patient states she's also states and smile. Patient also states she's had diarrhea. Patient denies any chest pain or palpitations. Patient denies any abdominal pain patient denies nausea vomiting diarrhea. According to EMS with the patient was coming in he was satting in the low 80s. Patient is currently on a few liters of oxygen and sat in mid 90s. Patient is a diabetic and has high blood pressure. Patient also has a pacemaker. Patient is presently on 2 L of oxygen was requiring 4 L yesterday. Patient was started on IV fluids patient creatinine went up to 1.6 baseline is around 1. Patient's blood sugars are highly elevated. Patient tests positive for Covid. 05/22/2020 Patient is presently on 2 L of oxygen appears to be doing better possibility of discharge tomorrow. Creatinine went up a bit to 1.6 baseline is around the 1. Patient was started on IV fluids will recheck the basic metabolic profile tomorrow. 05/23/2020 Patient seen and evaluated in follow-up continues to be on 2 L of oxygen and becomes dyspneic with exertion. Patient states he does not know wear oxygen at home. Pulmonary is following. Patient's blood sugars are elevated and will continue sliding scale at this time as patient is on steroids. Potassium was found to be slightly elevated at 5.5 and was given a dose of Kayexalate. Will repeat a.m. labs. Instructed and encouraged the patient to get up and increase activity as tolerated. 05/24/2020 Patient is presently in 2 does of hours and doing clinically well. Patient is on dexamethasone, vitamin supplements, subcutaneous heparin. No worsening shortness of breath, cough or congestion. D-dimer 1.02. Sodium 145. Potassium 5.1. Creatinine 1.3. LDH 485. C-reactive protein 4.4. His creatinine actually went up a little bit from 1.19-1.3 05/25/2020 Patient is fairly stable no significant improvement or worsening. Patient is still on 2 L of oxygen. We'll monitor him 1 more night. Continues to require oxygen patient probably can be discharged on 2 L tomorrow this can be tapered or discontinued as an outpatient. Patient d-dimer is bit worse compared to admission. Although other inflammatory markers are better 05/26/2020 Patient is seen this morning currently on nonrebreather and airvo as his oxygen was found to be 89% on 6 L of oxygen. Pulmonary is following. D-dimer has gone up at 1.70 along with lactate dehydrogenase at 491 and CRP is 9.4. Blood sugars continue to be elevated and patient is maintained on sliding scale along with long-acting and pre-meal insulin and will continue at this time. Patient continues on vitamin and zinc supplements along with Lovenox and dexamethasone daily. Patient is scheduled to receive Tocilizumab today. Will continue to monitor closely based on the clinical course of the patient. Patient continues to be weak and was seen and evaluated by physical therapy recommending subacute rehab and patient is now agreeable and a social work consult was placed. 05/27/2020 Patient is seen and evaluated this morning with no improvement in respiratory status. Patient remains on Airvo with supplemental nonrebreather. Patient is day 2 of receiving Tocilizumab. Will repeat a.m. chest x-ray along with inflammatory markers. D-dimer today was 1.60. White blood count has gone up in is 10.8, hemoglobin is 12.6. Patient is afebrile. To continue with dexametha sone, Lovenox, vitamin C and zinc supplements. Pulmonary is following. Had a discussion with the patient about CODE STATUS along with his son Mauricio and currently wish to remain a full code until talking with family member more extensively about the situation. Will continue to monitor closely. Prognosis remains guarded. 05/28/2020 Patient is seen this morning status post getting up to the bathroom and continues to be extremely dyspneic with any exertion and was found to be low 80s to 83% oxygenation. Patient continues on the airvo with a flow rate of 60 and FiO2 of 64 and is currently 91%. Patient denies any chest pain or palpitations. Patient is afebrile. Patient reports to tolerating diet with no nausea or vomiting noted. D-dimer continues to be elevated at 2.56, sodium today is 140 with a potassium of 5.1 and creatinine is 1.2. Blood sugars on the lower side this morning and will continue to monitor closely and treat accordingly with sliding scale. Inflammatory markers trending down. Pulmonary following closely. Chest x-ray today shows continued bibasilar infiltrates which are nonspecific but worsening. 05/29/2020 Patient is seen in follow-up this morning and continues to be on Airvo no significant change. Patient was on dexamethasone all being transitioned to IV Solu-Medrol and will continue with Accu-Cheks and close glycemic control with pre-meal, long-acting, and sliding scale. White blood count is 13.9, hemoglobin is stable at 13.2, d-dimer is 2.95, sodium is 137, potassium is 5.1, creatinine slightly elevated at 1.24. Inflammatory markers have gone up. Patient is sitting up in the chair and denies any chest pain or worsening shortness of breath. Patient states he feels he is about the same. Patient also states he has been sleeping a lot and tolerating diet with no reports of nausea or vomiting. Discussed with patient about increasing activity as tolerated although patient is extremely dyspneic with minimal exertion. 05/30/2020 Patient is seen and evaluated this morning and follow-up with no acute overnight issues. Patient continues to be on Airvo with a flow rate of 60 and FiO2 of 70 and is being closely monitored. Transitioned to IV Solu-Medrol and will continue at this time. Blood sugars elevated and increasing long-acting and pre-meal insulins and will continue sliding scale along with oral antidiabetic agents. Need tighter glycemic control. Patient has been eating 100% of all meals with no reports of nausea or vomiting noted. Patient clinically looking better and chest x-ray displays stable infiltrates. D-dimer slightly trending down along with inflammatory markers. Creatinine is stable at 1.2 and potassium is 5.5. Will continue to monitor vital signs and labs closely. On 05/31/2020 -patient is seen and examined at the bedside. He is sitting up in the chair and is on Airvo 60 L with FiO2 of 70%, saturating about 90%. He still complains of exertional dyspnea and cough at times. Denies having any fevers chills or rigors. He complains of generalized weakness. On reviewing his vitals temperature of 97.9, heart rate 63, respiratory rate 18, blood pressure 120 x 62 . On reviewing his labs white count of 22.9, hemoglobin 13, platelets 299. Sodium 136, potassium 5.6, chloride 104, bicarb 26, BUN 55, creatinine 1.15. Blood sugars running on the higher side around 300s. Patient had a chest x-ray done this morning showing mild to moderate mid and lower zone infiltrates. On 06/01/2020 -patient is seen and examined at bedside. He is sitting up in a chair at fifth high flow oxygen at 60 L FiO2 of 70% and pulse ox at 94%. He is still having exertional dyspnea and complains of generalized weakness. He states that he is tired of using the oxygen. On reviewing the vitals T-max of 97.9, heart rate 60, respiratory 19, blood pressure 130/60. Reviewing the labs LDH 378, CRP less than 0.04 and D-dimer of 1.53. All medications have been reviewed and pertinent changes made. 06/02/2020 Patient is seen and evaluated this morning with no acute overnight issues. Patient continues to sit up in the chair throughout most of the day as he states his breathing is better. Patient continues to be on Airvo and flow rate has been decreased to 40 with an FiO2 of 70% and is currently 92%. Patient con tinues to have dyspnea with minimal exertion and continues to have weakness and will likely require some form rehab once stabilized and discharged. PT/OT to continue to follow. White blood count trending down at 18.64 and hemoglobin is stable at 13.2. D-dimer is 1.60 with a sodium of 136 and potassium was found to be 6.1 and being corrected and will repeat a.m. labs. Creatinine is 1.2. Blood sugars continue to be elevated and will continue with sliding scale and long- acting and monitor closely. LDH trending back up at 503 and will monitor closely. CRP is 0.4. 06/03/2020 Patient's potassium is still high received the calcium gluconate and insulin as today. Will order capsulate. This is nonhemolyzed sample patient was started on low potassium diet. Patient remains on Airvo , 40 L and 60% FiO2 which is better compared to yesterday and saturating better appears to have been some improvement. 06/04/2020 Patient is seen and evaluated this morning continues to be sitting up in the chair. Patient states he feels his breathing is improved but "I'm still here in the hospital". Patient has continued weakness and has been working with PT/OT therapy. Patient does require assistance to the bedside commode and will have PT/OT therapy reevaluate with the possibility of ECF once stabilized and discharged. Sodium today is 138 with a potassium of 5.2 and current creatinine is 1.3. Blood sugars being closely monitored and will continue with current medication regimen. Respiratory slowly weaning Airvo settings and is maintained on a flow rate of 35 with an FiO2 of 65%. Pulmonary is following. 06/05/2020 Patient is seen this morning continues to be on Airvo and slow to respond. Current settings have a flow rate of 36 and FiO2 of 60%. Patient denies any worsening shortness of breath. White blood count trending down at 15.4, hemoglobin is stable at 14.2, sodium is 135, potassium is 5.2, current creatinine slightly improved at 1.12. 06/06/2020 Patient is seen and evaluated and follow-up continues to be on airvo requiring more oxygen support with a flow rate of 50 and an FiO2 of 70%. D-dimer continues to trend down at 1.58, sodium is 137, potassium is 4.7, current creatinine is 1.22. Blood sugars have been variable and will continue with current regimen and monitor closely. Continue with Accu-Cheks before meals and at bedtime. Patient is afebrile. 06/07/2020 Patient's overall respiratory status remains the patient is oxygen flow rate of 40 L with FiO2 of 60% may be a mild improvement but saturations are going down again. Patient is already on low potassium diet not an ALE inhibitor potassium supplementation will repeat basic metabolic profile again tomorrow. Patient is not on any IV fluids is eating well. 06/08/2020 Patient is doing bit better today his oxygen requirements are going down patient is on Airvo and 50% FiO2. Blood glucose is bit elevated. Patient had an episode of GI bleed will continue with anticoagulation and aspirin gastro- oncology will be consulted probably hemorrhoidal bleed patient had blood in the stools. 06/09/2020 Patient is seen and evaluated and follow-up with no acute overnight issues. Apparently patient had a few episodes of blood in the stool and was evaluated by GI and no plans for endoscopic intervention at this time as patient is not interested. Patient denies any pain or discomfort. Hemoglobin today is able at 9.9 and will continue to monitor closely. Patient continues on Airvo the flow rate of 35 and FiO2 of 60% and currently 93%. Patient is afebrile. Discussed with the patient about increasing activity as tolerated and sitting up in the chair more often. 06/10/2020 Patient is seen and evaluated and follow-up currently asleep but easily arousable. Per nursing staff patient has not been getting up out of the bed only sitting at the bedside for meals and continues to be fatigued and short of breath. Patient is maintained on a flow rate of 30 and an FiO2 of 40% and currently 86% oxygen saturation on the Airvo. Pulmonary is following. Patient white count blood count going up at 16.35, hemoglobin is 10.0 with no active bleeding noted. D-dimer is 1.12 and inflammatory markers trending down. Sodium today is 140 with a potassium of 5.5 and current creatinine is 1.2. Patient to continue low potassium diet and monitor labs closely. Patient needs aggressive PT/OT therapy daily as he continues to be weak and has been mostly lying in the bed. Will discuss with PT/OT. 06/11/2020 Patient is seen this morning and follow-up and did not want to work with physical therapy at the bedside although with encouragement patient has gotten up and is currently sitting up in the chair. Discussed with respiratory yesterday about attempting nasal cannula and patient was maintaining above 90% on 6 L and is currently maintaining 93% on 4 L via nasal cannula. Patient is afebrile. Potassium today is 5.3 and current creatinine is 1.05. Social work following and working on placement with the possibility of discharged tomorrow. Constitutional: reports of fatigue, denied any fever. Cardio vascular: denied any chest pain, palpitations Gastrointestinal denied any nausea vomiting, or diarrhea Pulmonary: Reports less shortness of breath Neurologic reports generalized weakness All inpatient medications were reviewed and appropriate changes in these medications as dictated in the interval history and assessment and plan. Objective - Vital Signs Vital signs: Vital Signs Temp 97.9 F 06/11/20 06:00 Pulse 90 06/11/20 06:00 Resp 18 06/11/20 06:00 BP 142/60 06/11/20 06:00 Pulse Ox 97 06/11/20 06:00 Intake & Output 06/10/20 06/11/20 06/11/20 18:59 06:59 18:59 Intake Total 540 Output Total 800 325 Balance -800 215 Intake: Oral 540 Output: Urine 800 325 Other: Voiding Method Bedside Commode Urinal # Voids 2 - Exam GENERAL: The patient is alert and oriented x3, not in any acute distress. Obese, currently on 4 L via nasal cannula and maintaining 93-94% oxygen saturation HEENT: Pupils are round and equally reacting to light. EOMI. No scleral icterus. No conjunctival pallor. Normocephalic, atraumatic. No pharyngeal erythema. No thyromegaly. CARDIOVASCULAR: S1 and S2 present. No murmurs, rubs, or gallops. PULMONARY: Diminished breath sounds bilaterally with no wheezing noted or rhonchi noted ABDOMEN: Soft, nontender, nondistended, normoactive bowel sounds. No palpable organomegaly. MUSCULOSKELETAL: No joint swelling or deformity. EXTREMITIES: No cyanosis, clubbing, or pedal edema. NEUROLOGICAL: Gross neurological examination did not reveal any focal deficits. Diffuse weakness SKIN: No rashes. - Labs CBC & Chem 7: 06/10/20 06:45 06/11/20 07:04 Labs: Abnormal Lab Results - Last 24 Hours (Table) 06/10/20 06/10/20 06/10/20 Range/Units 06:44 06:45 11:16 WBC 16.35 H (4.50-10.00) X 10*3/uL RBC 3.24 L (4.40-5.60) X 10*6/uL Hgb 10.0 L (13.0-17.0) g/dL Hct 31.6 L (39.6-50.0) % MCV 97.5 H (80.0-97.0) fL MCHC 31.6 L (32.0-37.0) g/dL RDW 14.6 H (11.5-14.5) % Immature Gran # 0.33 H (0.00-0.04) X 10*3/uL Neutrophils # 13.52 H (1.80-7.70) X 10*3/uL Monocytes # 1.23 H (0.20-1.00) X 10*3/uL Eosinophils # 0 L (0.04-0.35) X 10*3/uL Sodium (137-145) mmol/L Potassium (3.5-5.1) mmol/L Chloride (98-107) mmol/L BUN 60.0 H (9.0-27.0) mg/dL Est GFR (CKD-EPI)NonAf 56.4 L (60.0-200.0) BUN/Creatinine Ratio 50.00 H (12.00-20.00) Ratio Glucose 52 L (70-110) mg/dL POC Glucose (mg/dL) 193 H (75-99) mg/dL Calcium 8.3 L (8.7-10.3) mg/dL Ferritin 344.0 H (22.0-322.0) ng/mL Lactate Dehydrogenase 425 H (120-246) U/L 06/10/20 06/10/20 06/11/20 Range/Units 16:56 20:42 07:04 WBC (4.50-10.00) X 10*3/uL RBC (4.40-5.60) X 10*6/uL Hgb (13.0-17.0) g/dL Hct (39.6-50.0) % MCV (80.0-97.0) fL MCHC (32.0-37.0) g/dL RDW (11.5-14.5) % Immature Gran # (0.00-0.04) X 10*3/uL Neutrophils # (1.80-7.70) X 10*3/uL Monocytes # (0.20-1.00) X 10*3/uL Eosinophils # (0.04-0.35) X 10*3/uL Sodium 135 L (137-145) mmol/L Potassium 5.3 H (3.5-5.1) mmol/L Chloride 108 H (98-107) mmol/L BUN 54 H (9.0-27.0) mg/dL Est GFR (CKD-EPI)NonAf (60.0-200.0) BUN/Creatinine Ratio (12.00-20.00) Ratio Glucose 150 H (70-110) mg/dL POC Glucose (mg/dL) 228 H 256 H (75-99) mg/dL Calcium 7.8 L (8.7-10.3) mg/dL Ferritin (22.0-322.0) ng/mL Lactate Dehydrogenase (120-246) U/L 06/11/20 Range/Units 07:23 WBC (4.50-10.00) X 10*3/uL RBC (4.40-5.60) X 10*6/uL Hgb (13.0-17.0) g/dL Hct (39.6-50.0) % MCV (80.0-97.0) fL MCHC (32.0-37.0) g/dL RDW (11.5-14.5) % Immature Gran # (0.00-0.04) X 10*3/uL Neutrophils # (1.80-7.70) X 10*3/uL Monocytes # (0.20-1.00) X 10*3/uL Eosinophils # (0.04-0.35) X 10*3/uL Sodium (137-145) mmol/L Potassium (3.5-5.1) mmol/L Chloride (98-107) mmol/L BUN (9.0-27.0) mg/dL Est GFR (CKD-EPI)NonAf (60.0-200.0) BUN/Creatinine Ratio (12.00-20.00) Ratio Glucose (70-110) mg/dL POC Glucose (mg/dL) 163 H (75-99) mg/dL Calcium (8.7-10.3) mg/dL Ferritin (22.0-322.0) ng/mL Lactate Dehydrogenase (120-246) U/L Assessment and Plan Assessment: -acute hypoxic respiratory failure: Secondary to covid 19 pneumonia patient maintained on vitamin and zinc supplements. Patient currently on IV solu-Medrol and we will transition to oral prednisone with a taper. has received 2 doses of Tocilizumab and is continued on Lovenox. ,Patient currently on 4 L via nasal cannula. Pulmonary following -Possible hemorrhoids with blood noted in the stool, GI evaluated the patient and ordered anti-hemorrhoidal and no plans for endoscopic intervention -Type 2 diabetes mellitus uncontrolled elevated blood sugars secondary to systemic steroids, continue with pre-meal, sliding scale, and long-acting, with adjustments made and will increase pre-male and long-acting doses -Hyperkalemia, improved -Hypotonic hyponatremia, improved -Acute renal failure secondary to Covid 19: Improved, current creatinine is 1.05 -Hypertension -DVT subcutaneous Lovenox -Full code Plan: Continue with current medications. Will continue with vitamin and zinc supplements, and lovenox . patient has received Tocilizumab x2. Pulmonary following. Will transition to oral prednisone taper. Patient currently on 4 L of oxygen via nasal cannula. Discussed with the patient to increase activity as tolerated. PT OT following daily as patient needs continued encouragement to increase activity. Continue low potassium diet. Will continue to monitor closely. Prognosis remains guarded. Social work following and working on placement and anticipate discharge in the morning.
[2020-06-11 16:46] LABS: Glucose,Whole Blood 227 mg/dL (75-99)
[2020-06-11] MEDS: methylPREDNISolone SOD SUCCI 40 MG/ML 1 ML VIAL IV SCH (20:49)
[2020-06-11 22:10] LABS: Glucose,Whole Blood 180 mg/dL (75-99)
[2020-06-11] MEDS: INSULIN DETEMIR (LEVEMIR) 100 UNIT/ML SYR SQ SCH (22:26)
[2020-06-12 07:20] LABS: Glucose,Whole Blood 174 mg/dL (75-99)
[2020-06-12] MEDS: methylPREDNISolone SOD SUCCI 40 MG/ML 1 ML VIAL IV SCH (09:36)
[2020-06-12] MEDS: ASCORBIC ACID 500 MG TAB PO SCH (09:36)
[2020-06-12] MEDS: glipiZIDE 10 MG TAB PO SCH (09:36)
[2020-06-12] MEDS: ZINC SULFATE 220 MG CAP PO SCH (09:36)
[2020-06-12] MEDS: INSULIN ASPART (NovoLOG) 100 UNIT/ML VIAL SQ SCH ×4 (09:36→12:45)
[2020-06-12] MEDS: METOPROLOL SUCCINATE (ER) 50 MG TAB.ER.24H PO SCH (09:36)
[2020-06-12] MEDS: ATORVASTATIN 80 MG TAB PO SCH (09:37)
[2020-06-12] MEDS: CLOPIDOGREL 75 MG TAB PO SCH (09:37)
[2020-06-12] MEDS: FAMOTIDINE 20 MG TAB PO SCH (09:37)
[2020-06-12] MEDS: PIOGLITAZONE 30 MG TAB PO SCH (09:38)
[2020-06-12 11:11] VITALS: BP 117/50; PULSE 75; RESP 20; TEMP 97.6
[2020-06-12 11:38] LABS: Glucose,Whole Blood 241 mg/dL (75-99)
--- NOTE | 2020-06-12 11:50 | P.PN ---
Subjective Progress Note Date: 06/12/20 Principal diagnosis: Acute hypoxic respiratory failure secondary to covid with 19 pneumonitis. 80-year-old male, who was brought to the emergency department by EMS. The patient apparently has had 2 weeks' worth of increasing shortness of breath, and significant fatigue. The patient also had chest congestion. He had a fever. The patient states that he is just not been feeling well and getting progressively worse. He also apparently had an episode or 2 of diarrhea. The p atient denied any chest pain or chest pressure or palpitations. The patient also denied nausea, vomiting, and abdominal pain. Apparently when EMS arrived, the patient's saturations were in the low 80s on room air. For that reason, he was transported in, evaluated, and admitted with a diagnosis of COVID 19 19 pneumonia. The patient does have a history of diabetes, hypertension, and a previous pacemaker insertion. White count was 4.6, hemoglobin 12.5, hematocrit 37.1, and platelet count 153,000. PT, INR, and PTT were all normal. D-dimer was 0.77. Sodium 136, potassium 4.5, chlorides 102, CO2 26, anion gap 8, BUN 47, and creatinine 1.63. Ferritin was 985, LDH 818, C-reactive protein 58, and pro-calcitonin level was 0.12. Chest x-ray did show some interstitial infiltrates. On 05/22/2020 patient seen in follow-up on medical floor. he is on 2 L of oxygen his pulse ox is 90-94%, breathing comfortably, no fever or chills, blood pressure has been stable. Denies any worsening dyspnea or hypoxemia, he has a mild cough, no chest discomfort. He continues on oral Decadron 6 mg daily, IV hydration, vitamins, d-dimer was low at 0.77, patient is on subcu heparin for DVT prophylaxis, pro-calcitonin level was low, inflammatory markers were not significantly elevated on admission. Clinically symptoms have not progressed, and patient will be considered for discharge in next 24 hours. On 06/09/2020 patient seen in follow-up on medical surgical floor, patient remains on irritable at 35 L and FiO2 of 60%, with a pulse ox is ranging between 86-93%, no worsening dyspnea, no chills, hemodynamically stable. Patient is resting in bed, despite requiring high flow oxygen his lung sounds are clear, no significant wheezes or crackles or rhonchi. Patient states he was up in a chair earlier and he felt dizzy, occasional cough with no phlegm production, no chest pain or hemoptysis, his last chest x-ray was on O2 2020 showing patchy bilateral airspace disease, but slightly increased in the mid and lower lungs. Patient was reevaluated today on 06/10/2020, he is now on 40% FiO2 and 33 L flow using airvo, patient seems to be comfortable, doing quite well, his O2 saturation is 92% present. Patient denies any shortness of breath at rest, he does have dyspnea on exertion. No cough no fever no chills no hemoptysis. WBC count today is 16.3 his platelets are 194. No inflammatory markers ordered today. Chest x-ray from today shows diffuse interstitial infiltrates bilaterally Patient was reevaluated today on 06/11/2020, patient has been tapered down to 6 L high flow nasal cannula, and his O2 saturations 97%. Patient is feeling much better, breathing a lot easier, hardly any cough no wheezing, and he has no other constitutional symptoms. Basic metabolic profile is normal today, BUN is 54 creatinine 1.05. Sugar is 150. Chest x-ray from yesterday continues to show bilateral significant airspace disease and opacities left more so than right. Patient was seen by GI on consultation for his rectal bleeding, and the recommendation was to monitor closely transfuse as needed and local hemorrhoidal care with topical steroids therapy ordered. No endoscopy is recommended because the patient is not interested. Reevaluated today on 06/12/2020, patient is doing great today, he is on 4 L nasal cannula. Asymptomatic, no cough no wheezing no shortness of breath, being evaluated for possible rehab placement. Objective - Vital Signs Vital signs: Vital Signs Temp 97.6 F 06/12/20 10:11 Pulse 75 06/12/20 10:11 Resp 20 06/12/20 10:11 BP 117/50 06/12/20 10:11 Pulse Ox 99 06/12/20 10:11 Intake & Output 06/11/20 06/12/20 06/12/20 18:59 06:59 18:59 Intake Total 540 Output Total 300 Balance 240 Intake: Oral 540 Output: Urine 300 Other: Voiding Method Bedside Commode Urinal - Exam GENERAL EXAM: Alert, pleasant, 80-year-old white male currently on 4 L nasal cannula HEAD: Normocephalic/atraumatic. HEENT: PERRLA, EOMI, nonicteric, no neck masses, no JVD, no stridor. CHEST: No chest wall deformity. Symmetrical expansion. LUNGS: Equal air bilateral crackles noted posteriorly. CVS: Regular rate and rhythm, normal S1 and S2, no gallops, no murmurs, no rubs ABDOMEN: Soft, nontender. No hepatosplenomegaly, normal bowel sounds, no guarding or rigidity. EXTREMITIES: No clubbing, no edema, no cyanosis, 2+ pulses and upper and lower extremities. MUSCULOSKELETAL: Muscle strength and tone normal. SPINE: No scoliosis or deformity SKIN: No rashes CENTRAL NERVOUS SYSTEM: Alert and oriented 3 focal deficits. PSYCHIATRIC: Normal mood, affect and normal mental status examination - Labs CBC & Chem 7: 06/10/20 06:45 06/11/20 07:04 Labs: Abnormal Lab Results - Last 24 Hours (Table) 06/11/20 06/11/20 06/11/20 Range/Units 12:06 16:44 22:05 POC Glucose (mg/dL) 252 H 227 H 180 H (75-99) mg/dL 06/12/20 06/12/20 Range/Units 07:19 11:37 POC Glucose (mg/dL) 174 H 241 H (75-99) mg/dL Assessment and Plan Assessment: Impression: Acute hypoxic respiratory failure secondary to covid 19 pneumonia Type 2 diabetes. Benign essential hypertension. History of bowel resection for diverticulitis. Lower GI bleeding, anticoagulation is presently on hold. Being addressed by gastroenterology. Recommendation: Continue present supportive care measures Continue option at 4 L/m via nasal cannula GI to evaluate for his GI bleeding. Continue DVT prophylaxis. Continue Decadron. Possibly one more week of Decadron. Orally upon discharge From my perspective for discharge planning and follow-up on outpatient basis. Time with Patient: Less than 30
--- NOTE | 2020-06-12 12:08 | P.DS ---
Providers Date of admission: 05/20/20 21:07 Expected date of discharge: 06/12/20 Attending physician: Fidencio Jolley MD Consults: 05/20/20 21:07 Consult Physician Urgent Consulting Provider: Al Koenig Consult Reason/Comments: COVID pneumonia Do you want consulting provider notified?: Yes 06/08/20 16:06 Consult Physician Urgent Consulting Provider: Julissa Enciso Consult Reason/Comments: bright red blood in stool Do you want consulting provider notified?: Yes Primary care physician: Physician Nonstaff Hospital Course: Final diagnosis -acute hypoxic respiratory failure: Secondary to covid 19 pneumonia has received 2 doses of Tocilizumab -Possible hemorrhoids with blood noted in the stool, resolved -Type 2 diabetes mellitus uncontrolled elevated blood sugars secondary to systemic steroids -Hyperkalemia, improved -Hypotonic hyponatremia, improved -Acute renal failure secondary to Covid 19 -Hypertension -DVT prophylaxis -Full code Discharge disposition Patient is being discharged in a stable condition with guarded prognosis to extended care facility for continued PT/OT therapy. Patient will follow-up with primary care provider in the outpatient setting upon discharge. Patient also instructed to follow-up with pulmonary outpatient once discharged from [facility]. Patient is to continue with vitamin and zinc supplements along with a prednisone taper upon discharge. Total time taken is greater than 35 minutes. Hospital course This is an 80-year-old male who was recently admitted with shortness of breath and generalized weakness and fatigue with recent exposure to Covid 19 and was found to be positive himself. Patient was having multiple episodes of diarrhea which is since resolved and was maintained on high flow oxygen and recently titrated and maintaining high 90% oxygen saturations on 4 L via nasal cannula. Continue to be weak and was seen and evaluated by PT/OT therapy recommending subacute rehab for strength and mobility. Patient needs aggressive daily physical therapy as he tends to lay in the bed if not instructed and enforce to get up and move around. Patient's blood sugars have been variable and maintained on pre-meal, sliding scale, and long acting and will continue. Recommend Accu-Cheks before meals and at bedtime with possible titration of insulins once prednisone taper has finished. Patient was out of the window for Remdesivir although did receive Tocilizumab. Patient was also maintained on IV steroids and has transitioned oral prednisone. Currently no reports of chest pain, worsening shortness of breath, or palpitations. Patient is afebrile. No reports of nausea or vomiting and patient is tolerating diet. Patient will be going to [facility] today. On exam vital signs are stable. Temp is 97.6F, pulse is 75, respirations are 20, blood pressure is 117/50, oxygen saturation is 99% on 4 L via nasal cannula. Cardio S1, S2 are muffled. Respiratory system shows diminished breath sounds at the bases with no wheezing or rhonchi noted. Abdomen is soft and obese, and nontender. Nervous system shows diffuse weakness. Please refer to medication reconciliation sheet for a list of medications. Patient Condition at Discharge: Fair Plan - Discharge Summary Discharge Rx Participant: No New Discharge Prescriptions: New Insulin Detemir (Levemir) [Levemir] 60 unit SQ HS syr Famotidine [Pepcid] 40 mg PO DAILY tab predniSONE 10 mg PO DIRECTED #30 tab Hydrocortisone Pr Cream [Proctosol-Hc 2.5%] 1 applic RECTAL BID applic Ascorbic Acid [Vitamin C] 1,000 mg PO DAILY tab INSULIN ASPART (NovoLOG) [NovoLOG (formulary)] 10 unit SQ AC-TID vial INSULIN ASPART (NovoLOG) [NovoLOG (formulary)] 0 unit SQ ACHS vial Zinc Sulfate [Orazinc] 220 mg PO DAILY cap Acetaminophen Tab [Tylenol] 650 mg PO Q6HR PRN tab PRN Reason: Fever And/ Or Pain Continue glipiZIDE [Glipizide] 20 mg PO BID Pioglitazone [Actos] 30 mg PO DAILY Atorvastatin [Lipitor] 80 mg PO DAILY #30 tab Metoprolol Succinate (ER) [Toprol XL] 50 mg PO DAILY Clopidogrel Bisulfate [Plavix] 75 mg PO DAILY Discontinued metFORMIN HCL 1,000 mg PO BID Aspirin [Adult Low Dose Aspirin EC] 81 mg PO DAILY #30 tab Furosemide [Lasix] 20 mg PO DAILY #30 tab Losartan [Cozaar] 50 mg PO DAILY Discharge Medication List glipiZIDE [Glipizide] 20 mg PO BID 01/29/15 [History] Pioglitazone [Actos] 30 mg PO DAILY 07/20/19 [History] Atorvastatin [Lipitor] 80 mg PO DAILY #30 tab 07/27/19 [Rx] Clopidogrel Bisulfate [Plavix] 75 mg PO DAILY 05/20/20 [History] Metoprolol Succinate (ER) [Toprol XL] 50 mg PO DAILY 05/20/20 [History] Acetaminophen Tab [Tylenol] 650 mg PO Q6HR PRN tab 06/12/20 [Rx] Ascorbic Acid [Vitamin C] 1,000 mg PO DAILY tab 06/12/20 [Rx] Famotidine [Pepcid] 40 mg PO DAILY tab 06/12/20 [Rx] Hydrocortisone Pr Cream [Proctosol-Hc 2.5%] 1 applic RECTAL BID applic 06/12/20 [Rx] INSULIN ASPART (NovoLOG) [NovoLOG (formulary)] 0 unit SQ ACHS vial 06/12/20 [Rx] INSULIN ASPART (NovoLOG) [NovoLOG (formulary)] 10 unit SQ AC-TID vial 06/12/20 [Rx] Insulin Detemir (Levemir) [Levemir] 60 unit SQ HS syr 06/12/20 [Rx] Zinc Sulfate [Orazinc] 220 mg PO DAILY cap 06/12/20 [Rx] predniSONE 10 mg PO DIRECTED #30 tab 06/12/20 [Rx] Follow up Appointment(s)/Referral(s): Al Koenig DO [Doctor of Osteopathic Medicine] - 2 Weeks [facility], [NON-STAFF] - As Needed Nonstaff,Physician [Primary Care Provider] - 1-2 days Patient Instructions/Handouts: Coronavirus Disease 2019 (COVID-19) Activity/Diet/Wound Care/Special Instructions: Patient is going to F today Activity as tolerated Needs aggressive daily physical therapy Continue with oxygen therapy and titrate as tolerated Continue with prednisone taper Continue to monitor blood sugars before meals and at bedtime and treat accordingly with sliding scale along with long-acting and pre-meal insulins Adjust insulins once patient has completed prednisone taper NovoLog sliding scale 0-150 equals 0 units 151-200 equals 2 units 201-250 equals 4 units 251-300 equals 6 units 301-350 equals 8 units 351-400 equals 10 units Please notify provider if blood sugar is 400 or above Continue with consistent carb low potassium low phosphorus diet Discharge Disposition: TRANSFER TO SNF/ECF
[2020-06-12] MEDS: HYDROCORTISONE 2.5% RECTAL CREAM 30 GM TUBE RECTAL SCH (12:45)
== END 2020-06-12 14:08 | DRG 177 ==
LOC: EC 18:34 → 4SSUR 21:07
PROVIDERS: ADMIT Internal Medicine; ATTEND Internal Medicine
PROC: 5A0955A Assistance with Respiratory Ventilation, Greater than 96 Consecutive Hours, High Flow/Velocity Cannula (ICD-10-PCS; principal; 2020-05-26)
PROC: XW033H5 Introduction of Tocilizumab into Peripheral Vein, Percutaneous Approach, New Technology Group 5 (ICD-10-PCS; 2020-05-26)
DX: U07.1 COVID-19 (principal); J12.82 Pneumonia due to coronavirus disease 2019; J96.01 Acute respiratory failure with hypoxia; N17.9 Acute kidney failure, unspecified; E87.1 Hypo-osmolality and hyponatremia; D62 Acute posthemorrhagic anemia; K92.1 Melena; E11.65 Type 2 diabetes mellitus with hyperglycemia; E86.1 Hypovolemia; E87.5 Hyperkalemia; R19.7 Diarrhea, unspecified; K64.9 Unspecified hemorrhoids; I10 Essential (primary) hypertension; E78.5 Hyperlipidemia, unspecified; T38.0X5A Adverse effect of glucocorticoids and synthetic analogues, initial encounter; K57.90 Diverticulosis of intestine, part unspecified, without perforation or abscess without bleeding; E66.9 Obesity, unspecified; Z68.39 Body mass index [BMI] 39.0-39.9, adult; Z79.82 Long term (current) use of aspirin; Z79.02 Long term (current) use of antithrombotics/antiplatelets; Z79.84 Long term (current) use of oral hypoglycemic drugs; Z79.899 Other long term (current) drug therapy; Z95.0 Presence of cardiac pacemaker; Z71.3 Dietary counseling and surveillance; Z88.0 Allergy status to penicillin; Z91.018 Allergy to other foods; Z90.49 Acquired absence of other specified parts of digestive tract; Z87.19 Personal history of other diseases of the digestive system; Z87.891 Personal history of nicotine dependence; Z87.09 Personal history of other diseases of the respiratory system; Z98.890 Other specified postprocedural states; Z83.3 Family history of diabetes mellitus; Z80.49 Family history of malignant neoplasm of other genital organs
CPT/HCPCS: 36415; 71045; 80048; 80053; 82607; 82728; 82746; 83540; 83550; 83605; 83615; 83735; 84145; 85025; 85027; 85379; 85610; 85730; 86140; 87040; 87635; 93005; 94760; 99285

== ENCOUNTER 2020-06-30 21:17 | Inpatient (IN) | payer MEDICARE, BC ==
[2020-06-30] MEDS ORDERED: ALBUTEROL HFA INHALER INHALATION STA (21:47)
[2020-06-30] MEDS ORDERED: IBUPROFEN 800 MG TAB PO STA (21:51)
[2020-06-30] MEDS ORDERED: ACETAMINOPHEN TAB 500 MG TAB PO STA (21:51)
--- NOTE | 2020-06-30 22:08 | ED ---
SOB HPI - General Chief Complaint: Shortness of Breath Stated Complaint: ZAK Time Seen by Provider: 06/30/20 21:38 Source: EMS, RN notes reviewed, old records reviewed Mode of arrival: EMS Limitations: no limitations - History of Present Illness Initial Comments: This is an 80-year-old male DF for evaluation of shortness of breath diagnosis of covert about 5 weeks ago UT about a year ago. Patient comes in with diabetes high blood pressure is significant shortness of breath. Peter worsening hypoxia. Patient denies any current chest pain. He is awake and alert. No other significant complaints MD Complaint: shortness of breath, cough -: days(s) Severity: moderate Severity scale (1-10): 7 (Shortness of breath) Quality: other (No pain) Consistency: constant Improves With: nothing Worsens With: exertion, movement Known History Of: congestive heart failure, recurrent pneumonia Context: recent URI, recent illness, other (Covert 1 month ago) Associated Symptoms: denies other symptoms - Related Data Home Medications Medication Instructions Recorded Confirmed glipiZIDE [Glipizide] 20 mg PO BID@899,209901/29/15 06/30/20 Pioglitazone [Actos] 30 mg PO DAILY@89907/20/19 06/30/20 Clopidogrel Bisulfate [Plavix] 75 mg PO DAILY@89905/20/20 06/30/20 Metoprolol Succinate (ER) [Toprol 50 mg PO DAILY@89905/20/20 06/30/20 XL] Ascorbic Acid [Vitamin C] 1,000 mg PO DAILY@89906/30/20 06/30/20 Atorvastatin [Lipitor] 80 mg PO HS@209906/30/20 06/30/20 Famotidine [Pepcid] 40 mg PO DAILY@89906/30/20 06/30/20 Ferrous Sulfate [Feosol] 325 mg PO DAILY@89906/30/20 06/30/20 Furosemide [Lasix] 40 mg PO DAILY@89906/30/20 06/30/20 Insulin Glargine,Hum.rec.anlog 60 units SQ HS@209906/30/20 06/30/20 [Semglee Pen] Insulin Lispro [humaLOG Kwikpen] 10 unit SQ AC-TID 06/30/20 06/30/20 Insulin Lispro [humaLOG Kwikpen] See Protocol SQ ACHS 06/30/20 06/30/20 Levofloxacin [Levaquin] 750 mg PO DAILY 06/30/20 06/30/20 Potassium Chloride ER [K-Dur 20] 20 meq PO DAILY@0900 06/30/20 06/30/20 Zinc 50 mg PO DAILY@0900 06/30/20 06/30/20 Previous Rx's Medication Instructions Recorded Acetaminophen Tab [Tylenol] 650 mg PO Q6HR PRN tab 06/12/20 Allergies Allergy/AdvReac Type Severity Reaction Status Date / Time Mushroom Allergy Vomiting Verified 06/30/20 22:27 Penicillins Allergy Unknown Verified 06/30/20 22:27 Review of Systems ROS Statement: Those systems with pertinent positive or pertinent negative responses have been documented in the HPI. ROS Other: All systems not noted in ROS Statement are negative. Past Medical History Past Medical History: Diabetes Mellitus, Hypertension Additional Past Medical History / Comment(s): sinusitis, diverticulits History of Any Multi-Drug Resistant Organisms: None Reported Past Surgical History: Bowel Resection, Cholecystectomy Additional Past Surgical History / Comment(s): bowel resection d/t diverticulitis, colonoscopy Past Anesthesia/Blood Transfusion Reactions: No Reported Reaction Past Psychological History: No Psychological Hx Reported Smoking Status: Former smoker Past Alcohol Use History: Occasional Past Drug Use History: None Reported - Past Family History Mother Additional Family Medical History / Comment(s): reproductive cancer Father Family Medical History: Diabetes Mellitus General Exam Limitations: no limitations General appearance: alert, in no apparent distress Head exam: Present: atraumatic, normocephalic, normal inspection Eye exam: Present: normal appearance, PERRL, EOMI. Absent: scleral icterus, conjunctival injection, periorbital swelling ENT exam: Present: normal exam, mucous membranes moist Neck exam: Present: normal inspection. Absent: tenderness, meningismus, lymphadenopathy Respiratory exam: Present: respiratory distress, rhonchi, accessory muscle use, decreased breath sounds, prolonged expiratory. Absent: wheezes, rales, stridor Cardiovascular Exam: Present: normal rhythm, tachycardia, normal heart sounds. Absent: systolic murmur, diastolic murmur, rubs, gallop, clicks GI/Abdominal exam: Present: soft, normal bowel sounds. Absent: distended, tenderness, guarding, rebound, rigid Extremities exam: Present: normal inspection, full ROM, normal capillary refill. Absent: tenderness, pedal edema, joint swelling, calf tenderness Back exam: Present: normal inspection Neurological exam: Present: alert, oriented X3, CN II-XII intact Psychiatric exam: Present: normal affect, normal mood Skin exam: Present: warm, dry, intact, normal color. Absent: rash Course Vital Signs 06/30/20 06/30/20 06/30/20 21:21 21:28 21:41 Temperature 100.1 F H Pulse Rate 102 H Respiratory 22 22 Rate Blood Pressure 118/56 O2 Sat by Pulse 94 L 91 L Oximetry 06/30/20 22:16 Temperature Pulse Rate 107 H Respiratory 20 Rate Blood Pressure 120/69 O2 Sat by Pulse 90 L Oximetry - Reevaluation(s) Reevaluation #1: 06/30/20 22:53 Medical records reviewed Reevaluation #2: 06/30/20 22:53 Patient still was is increased a little oxygen, no increased respiratory distress or work of breathing currently. - Consultations Consultation #1: Soap with cardiology aware of this patient Consultation #2: Patient will be admitted to [facility], they're agreeable Medical Decision Making - Medical Decision Making 80 male DF for evaluation one month post covert. She was ARDS on x-ray. Patient be admitted for hypoxia - Lab Data Result diagrams: 06/30/20 21:52 06/30/20 21:52 Lab Results 06/30/20 06/30/20 06/30/20 Range/Units 21:52 21:52 21:52 WBC 7.9 (3.8-10.6) k/uL RBC 2.73 L (4.30-5.90) m/uL Hgb 8.3 L D (13.0-17.5) gm/dL Hct 27.8 L (39.0-53.0) % MCV 102.1 H D (80.0-100.0) fL MCH 30.6 (25.0-35.0) pg MCHC 29.9 L (31.0-37.0) g/dL RDW 17.5 H (11.5-15.5) % Plt Count 281 (150-450) k/uL MPV 8.2 Neutrophils % 49 % Lymphocytes % 30 % Monocytes % 13 % Eosinophils % 3 % Basophils % 1 % Neutrophils # 3.9 (1.3-7.7) k/uL Lymphocytes # 2.4 (1.0-4.8) k/uL Monocytes # 1.1 H (0-1.0) k/uL Eosinophils # 0.2 (0-0.7) k/uL Basophils # 0.1 (0-0.2) k/uL Hypochromasia Marked Anisocytosis Slight Macrocytosis Moderate PT 9.8 (9.0-12.0) sec INR 0.9 (<1.2) APTT 21.6 L (22.0-30.0) sec D-Dimer 1.83 H (<0.60) mg/L FEU Sodium 139 (137-145) mmol/L Potassium 5.4 H (3.5-5.1) mmol/L Chloride 102 (98-107) mmol/L Carbon Dioxide 36 H (22-30) mmol/L Anion Gap 1 mmol/L BUN 24 H (9-20) mg/dL Creatinine 0.98 (0.66-1.25) mg/dL Est GFR (CKD-EPI)AfAm 84 (>60 ml/min/1.73 sqM) Est GFR (CKD-EPI)NonAf 73 (>60 ml/min/1.73 sqM) Glucose 125 H (74-99) mg/dL Plasma Lactic Acid José (0.7-2.0) mmol/L Calcium 8.3 L (8.4-10.2) mg/dL Magnesium 1.9 (1.6-2.3) mg/dL Total Bilirubin 0.4 (0.2-1.3) mg/dL AST 46 (17-59) U/L ALT 55 H (4-49) U/L Alkaline Phosphatase 87 (38-126) U/L Lactate Dehydrogenase 1196 H (313-618) U/L C-Reactive Protein 14.3 H (<1.0) mg/dL Total Protein 5.3 L (6.3-8.2) g/dL Albumin 2.6 L (3.5-5.0) g/dL 06/30/20 Range/Units 21:52 WBC (3.8-10.6) k/uL RBC (4.30-5.90) m/uL Hgb (13.0-17.5) gm/dL Hct (39.0-53.0) % MCV (80.0-100.0) fL MCH (25.0-35.0) pg MCHC (31.0-37.0) g/dL RDW (11.5-15.5) % Plt Count (150-450) k/uL MPV Neutrophils % % Lymphocytes % % Monocytes % % Eosinophils % % Basophils % % Neutrophils # (1.3-7.7) k/uL Lymphocytes # (1.0-4.8) k/uL Monocytes # (0-1.0) k/uL Eosinophils # (0-0.7) k/uL Basophils # (0-0.2) k/uL Hypochromasia Anisocytosis Macrocytosis PT (9.0-12.0) sec INR (<1.2) APTT (22.0-30.0) sec D-Dimer (<0.60) mg/L FEU Sodium (137-145) mmol/L Potassium (3.5-5.1) mmol/L Chloride (98-107) mmol/L Carbon Dioxide (22-30) mmol/L Anion Gap mmol/L BUN (9-20) mg/dL Creatinine (0.66-1.25) mg/dL Est GFR (CKD-EPI)AfAm (>60 ml/min/1.73 sqM) Est GFR (CKD-EPI)NonAf (>60 ml/min/1.73 sqM) Glucose (74-99) mg/dL Plasma Lactic Acid José 1.2 (0.7-2.0) mmol/L Calcium (8.4-10.2) mg/dL Magnesium (1.6-2.3) mg/dL Total Bilirubin (0.2-1.3) mg/dL AST (17-59) U/L ALT (4-49) U/L Alkaline Phosphatase (38-126) U/L Lactate Dehydrogenase (313-618) U/L C-Reactive Protein (<1.0) mg/dL Total Protein (6.3-8.2) g/dL Albumin (3.5-5.0) g/dL - EKG Data -: EKG Interpreted by Me (EKG shows sinus rhythm 100 [place] 240 QRS [address] depression v2v3) - Radiology Data Radiology results: report reviewed (Chest x-ray shows CHF versus ARDS), image reviewed Critical Care Time Critical Care Time: Yes Total Critical Care Time: 31 Disposition Clinical Impression: Acute pulmonary edema, Congestive heart failure, Anemia, Hypoxia Disposition: ADMITTED IP TO THIS HOSP Condition: Serious
--- NOTE | 2020-06-30 22:14 | XR ---
EXAMINATION TYPE: XR chest 1V portable DATE OF EXAM: 06/30/2020 COMPARISON: 06/10/2020 HISTORY: Short of breath TECHNIQUE: Single view FINDINGS: There is pulmonary interstitial and airspace edema. There is left axillary pacemaker. Heart is enlarged. IMPRESSION: Pulmonary edema is slightly worse than last exam and consistent with congestive heart shanti lure or RDS.
[2020-06-30 22:18] LABS: Anisocytosis Slight; Basophils # (A) 0.1 k/uL (0-0.2); Basophils % (A) 1 %; Eosinophils # (A) 0.2 k/uL (0-0.7); Eosinophils % (A) 3 %; HCT 27.8 % (39.0-53.0); Hypochromasia Marked; Lymphocytes # (A) 2.4 k/uL (1.0-4.8); Lymphocytes % (A) 30 %; MCH 30.6 pg (25.0-35.0); MCHC 29.9 g/dL (31.0-37.0); Macrocytosis Moderate; Mean Platelet Volume 8.2; Monocytes # (A) 1.1 k/uL (0-1.0); Monocytes % (A) 13 %; Neutrophils # (A) 3.9 k/uL (1.3-7.7); Neutrophils % (A) 49 %; Platelet Count 281 k/uL (150-450); RBC 2.73 m/uL (4.30-5.90); RDW 17.5 % (11.5-15.5); WBC 7.9 k/uL (3.8-10.6)
[2020-06-30 22:19] LABS: HGB 8.3 gm/dL (13.0-17.5); MCV 102.1 fL (80.0-100.0)
[2020-06-30 22:27] LABS: Albumin 2.6 g/dL (3.5-5.0); Calcium 8.3 mg/dL (8.4-10.2); Magnesium 1.9 mg/dL (1.6-2.3); Potassium 5.4 mmol/L (3.5-5.1); Total Bilirubin 0.4 mg/dL (0.2-1.3); Total Protein 5.3 g/dL (6.3-8.2)
[2020-06-30 22:33] LABS: INR 0.9 (<1.2); Partial Thromboplastin Time 21.6 sec (22.0-30.0); Prothrombin Time 9.8 sec (9.0-12.0)
[2020-06-30 22:41] LABS: D-Dimer 1.83 mg/L FEU (<0.60)
[2020-06-30 22:42] LABS: C Reactive Protein 14.3 mg/dL (<1.0)
[2020-06-30] MEDS: FUROSEMIDE 10 MG/ML 4 ML VIAL IV SCH (23:55)
[2020-07-01] MEDS ORDERED: lisinopriL 5 MG TAB PO SCH (09:00)
[2020-07-01] MEDS: hydrALAZINE HCL 25 MG TAB PO SCH ×2 (09:14→22:01)
[2020-07-01] MEDS: ISOSORBIDE MONONITRATE ER 30 MG TAB.ER.24H PO SCH (09:14)
[2020-07-01] MEDS: carvediloL 6.25 MG TAB PO SCH ×2 (09:14→18:48)
--- NOTE | 2020-07-01 09:41 | P.CNPUL ---
History of Present Illness Consult date: 07/01/20 Requesting physician: Gama Coles Reason for consult: dyspnea, abnormal CXR/CT Chief complaint: Fever, and shortness of breath History of present illness: This is a 80-year-old white male patient who was recently hospitalized from 05/20/2020 through 06/12/2020 for COVID-19 pneumonia, and patient had a prolonged hospitalization course, with the severe hypoxemic respiratory failure related to COVID-19 pneumonia. Patient was treated with steroids, he received 2 doses of Tocilizumab while in the hospital, and was [facility]. His hospitalization was complicated by lower GI bleeding and acute kidney injury. The GI bleeding reso lved on its own. He is currently not on any anticoagulation. His past medical history is positive for hypertension, type 2 diabetes mellitus and his sugars have been poorly controlled related to systemic steroids, patient is a former smoker. Patient was brought into the emergency department on 06/30/2020 at 2100 by EMS for evaluation of worsening shortness of breath and fever. he is very hard of hearing, he is a poor historian, but chest x-ray in the emergency department showed pulmonary interstitial and airspace edema, left basilar pacemaker in place. Denies any coughing, denies any chest congestion or phlegm production. Her low-grade fever in the emergency department with a temp of 1 00.1F. On 5 L of oxygen pulse ox is 93%. His blood work showed normal white count of 7.9, hemoglobin is 8.3, his platelet count is 281, d-dimer is 1.83, INR 0.9, sodium is 139, potassium is 5.4, chloride is 102, CO2 is 26, B1 is 24, creatinine 0.9, lactic acid was 1.2, LDH was 1196, patient had troponin elevation of 0.110, 0.122, and 0.117, his proBNP came back elevated at 8220, and pro-calcitonin level is pending right now, patient was retested for COVID-19 and was found to be negative, RSV, influenza A and B PCR were negative. Review of Systems All systems: negative Constitutional: Denies chills, Denies fever Eyes: denies blurred vision, denies pain Ears, nose, mouth and throat: Denies headache, Denies sore throat Cardiovascular: Reports leg edema, Reports shortness of breath, Denies chest pain Respiratory: Denies cough Gastrointestinal: Denies abdominal pain, Denies diarrhea, Denies nausea, Denies vomiting Musculoskeletal: Denies myalgias Integumentary: Denies pruritus, Denies rash Neurological: Denies numbness, Denies weakness Psychiatric: Denies anxiety, Denies depression Endocrine: Denies fatigue, Denies weight change Past Medical History Past Medical History: Diabetes Mellitus, Hypertension Additional Past Medical History / Comment(s): sinusitis, diverticulits History of Any Multi-Drug Resistant Organisms: None Reported Past Surgical History: Bowel Resection, Cholecystectomy Additional Past Surgical History / Comment(s): bowel resection d/t diverticulitis, colonoscopy Past Anesthesia/Blood Transfusion Reactions: No Reported Reaction Past Psychological History: No Psychological Hx Reported Additional Psychological History / Comment(s): pt lives with his girlfriend jose, is independant, no assistive devices.no outside services. 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 Smoking Status: Never smoker Past Alcohol Use History: Occasional Past Drug Use History: None Reported - Past Family History Mother Additional Family Medical History / Comment(s): reproductive cancer Father Family Medical History: Diabetes Mellitus Medications and Allergies Home Medications Medication Instructions Recorded Confirmed Type glipiZIDE [Glipizide] 20 mg PO BID@09,209901/29/15 06/30/20 History Pioglitazone [Actos] 30 mg PO DAILY@89907/20/19 06/30/20 History Clopidogrel Bisulfate [Plavix] 75 mg PO DAILY@89905/20/20 06/30/20 History Metoprolol Succinate (ER) [Toprol 50 mg PO DAILY@89905/20/20 06/30/20 History XL] Acetaminophen Tab [Tylenol] 650 mg PO Q6HR PRN tab 06/12/20 06/30/20 Rx Ascorbic Acid [Vitamin C] 1,000 mg PO DAILY@89906/30/20 06/30/20 History Atorvastatin [Lipitor] 80 mg PO HS@209906/30/20 06/30/20 History Famotidine [Pepcid] 40 mg PO DAILY@89906/30/20 06/30/20 History Ferrous Sulfate [Feosol] 325 mg PO DAILY@89906/30/20 06/30/20 History Furosemide [Lasix] 40 mg PO DAILY@0900 06/30/20 06/30/20 History Insulin Glargine,Hum.rec.anlog 60 units SQ HS@2100 06/30/20 06/30/20 History [Semglee Pen] Insulin Lispro [humaLOG Kwikpen] 10 unit SQ AC-TID 06/30/20 06/30/20 History Insulin Lispro [humaLOG Kwikpen] See Protocol SQ ACHS 06/30/20 06/30/20 History Levofloxacin [Levaquin] 750 mg PO DAILY 06/30/20 06/30/20 History Potassium Chloride ER [K-Dur 20] 20 meq PO DAILY@0906/30/20 06/30/20 History Zinc 50 mg PO DAILY@0906/30/20 06/30/20 History Allergies Allergy/AdvReac Type Severity Reaction Status Date / Time Mushroom Allergy Vomiting Verified 06/30/20 22:27 Penicillins Allergy Unknown Verified 06/30/20 22:27 Physical Exam Vitals: Vital Signs Temp Pulse Resp BP Pulse Ox 07/01/20 08:00 98.0 F 89 18 134/79 93 L 07/01/20 06:02 18 07/01/20 01:00 84 18 142/82 89 L 06/30/20 22:16 107 H 20 120/69 90 L 06/30/20 21:41 91 L 06/30/20 21:28 22 06/30/20 21:21 100.1 F H 102 H 22 118/56 94 L Intake and Output 06/30/20 07/01/20 07/01/20 22:59 06:59 14:59 Output Total 800 Balance -800 Output: Urine 800 Other: Voiding Method Urinal # Voids 1 Weight 138.346 kg 138.346 kg GENERAL EXAM: Alert, very pleasant, hard of hearing, 80-year-old white male, on 4 L of oxygen with a pulse ox of 93%, comfortable in no apparent distress. HEAD: Normocephalic/atraumatic. EYES: Normal reaction of pupils, equal size. Conjunctiva pink, sclera white. NOSE: Clear with pink turbinates. THROAT: No erythema or exudates. NECK: No masses, no JVD, no thyroid enlargement, no adenopathy. CHEST: No chest wall deformity. Symmetrical expansion. LUNGS: Equal air entry with bilateral crackles CVS: Regular rate and rhythm, normal S1 and S2, no gallops, no murmurs, no rubs ABDOMEN: Soft, nontender. No hepatosplenomegaly, normal bowel sounds, no gua rding or rigidity. EXTREMITIES: No clubbing, plus lower extremity edema, no cyanosis, 2+ pulses and upper and lower extremities. MUSCULOSKELETAL: Muscle strength and tone normal. SPINE: No scoliosis or deformity SKIN: No rashes CENTRAL NERVOUS SYSTEM: Alert and oriented -3. No focal deficits, tone is normal in all 4 extremities. PSYCHIATRIC: Alert and oriented -3. Appropriate affect. Intact judgment and insight. Results - Laboratory Findings CBC and BMP: 06/30/20 21:52 06/30/20 21:52 PT/INR, D-dimer PT 9.8 sec (9.0-12.0) 06/30/20 21:52 INR 0.9 (<1.2) 06/30/20 21:52 D-Dimer 1.83 mg/L FEU (<0.60) H 06/30/20 21:52 Abnormal lab findings: Abnormal Labs 06/30/20 06/30/20 06/30/20 21:52 21:52 21:52 RBC 2.73 L Hgb 8.3 L D Hct 27.8 L MCV 102.1 H D MCHC 29.9 L RDW 17.5 H Monocytes # 1.1 H APTT 21.6 L D-Dimer 1.83 H Potassium 5.4 H Carbon Dioxide 36 H BUN 24 H Glucose 125 H Calcium 8.3 L ALT 55 H Lactate Dehydrogenase 1196 H Troponin I C-Reactive Protein 14.3 H Total Protein 5.3 L Albumin 2.6 L 06/30/20 07/01/20 07/01/20 21:52 00:05 04:41 RBC Hgb Hct MCV MCHC RDW Monocytes # APTT D-Dimer Potassium Carbon Dioxide BUN Glucose Calcium ALT Lactate Dehydrogenase Troponin I 0.110 H* 0.122 H* 0.117 H* C-Reactive Protein Total Protein Albumin - Diagnostic Findings Chest x-ray: report reviewed, image reviewed Assessment and Plan Plan: Assessment: #1. Acute on chronic dyspnea and acute on chronic hypoxic respiratory failure, multifactorial related to acute exacerbation of CHF with systolic dysfunction #2. Recent hospitalization for COVID-19 pneumonia, patient was discharged to ECF #3. Rule out possibility of ACS, patient came in with elevated troponins #4. Very artery disease with previous stenting #5. Previous history of ischemic cardiomyopathy with placement of AICD #6. History of moderate to severe pulmonary hypertension #7. Diabetes mellitus type 2 #8. Anemia, the patient has a recent history of rectal bleeding while in the hospital, currently not on any anticoagulation #9. Former smoker #10. General medical debility Plan: Continue with Lasix, we'll send a pro-calcitonin level, continue empiric antibiotics in the form of Rocephin, cardiology consultation, echocardiogram, restart patient's home medications, cardiology consultation, accurate intake and output, daily weights, follow up labs in the morning, continue Rocephin for empiric antibiotic coverage. We'll continue to follow and make further recommendations I performed a history & physical examination of the patient and discussed their management with my nurse practitioner, Kay Buchanan. I reviewed the nurse practitioner's note and agree with the documented findings and plan of care. Lung sounds are positive for bibasilar crackles. The findings and the impression was discussed with the patient. I attest to the documentation by the nurse practitioner. Time with Patient: Greater than 30
[2020-07-01] MEDS: FUROSEMIDE 10 MG/ML 4 ML VIAL IV SCH ×2 (11:26→23:11)
--- NOTE | 2020-07-01 11:58 | P.CRDCN ---
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 Follows in the office with Dr. Stephenson. We are being consulted for congestive heart failure and elevated troponin. Patient presents to the emergency department with shortness of breath and fever. Patient is a poor historian, very hard of hearing. Patient recently hospitalized on 05/20/20-06/12/20 with COVID-19 pneumonia. Patient denies chest pain, palpitations, syncope or near syncope. DIAGNOSTICS EKG: sinus rhythm with first degree AV block, Twave inversions, leads I, aVL, ST depression in leads V2, V3. Echo 04/2020 in the office- EF 35-40%, mild TR, mild MR, grade 1 diastolic dysfunction Chest x-ray- pulmonary edema is slightly worse than last exam Laboratory data reviewed, Troponin 0.11, 0.12, 0.11, BNP 8,220, d-dimer 1.83, Sodium 139, K 5.4, sCr 0.98, magnesium 1.9, LDH elevated, CRP elevated, total protein 5.3, Albumin 2.6, Viral PCR negative, Covid-19 negative, Hgb 8.3, WBC 7.9, Plt 281 REVIEW OF SYSTEMS: At the time of my exam: CONSTITUTIONAL: +fever Denies chills. HEENT: Denies blurred vision, vision changes, or eye pain. Denies hemoptysis CARDIOVASCULAR: Denies chest pain. Reports orthopnea. Denies PND. Denies palpitations RESPIRATORY: Reports shortness of breath. GASTROINTESTINAL: Denies abdominal pain. Denies nausea or vomiting. HEMATOLOGIC: Denies bleeding disorders. GENITOURINARY: Denies any blood in urine. SKIN: Denies pruitis. Denies rash. PHYSICAL EXAM: VITAL SIGNS: BP 134/79 HR 89, SpO2 93% requiring 5L nasal cannula, afebrile. GENERAL: No acute distress. HEENT: Head is normocephalic. Pupils are equal, round. Sclerae anicteric. Mucous membranes of the mouth are moist. Neck supple. No JVD or thyromegaly LUNGS: Respirations even and unlabored. Lungs bibasilar crackles HEART: Regular rate and rhythm. S1 and S2 heard. ABDOMEN: Soft. Nondistended. Nontender. EXTREMITIES: Normal range of motion. No clubbing or cyanosis. Peripheral pulses intact. NEUROLOGIC: Awake and alert. Oriented x 3. ASSESSMENT: Coronary artery disease s/p PCI mid RCA, proximal RCA in 07/2019, Acute on chronic heart failure with reduced ejection fraction Mildly elevated troponin- not likely acute coronary syndrome, troponin not increasing, patient denies chest discomfort Ischemic cardiomyopathy EF 35-40% Permanent cardiac pacemaker Type 2 Diabetes HTN Dyslipidemia PLAN: Obtain repeat 2D echocardiogram Continue dual antiplatelet therapy- plavix and aspirin. Continue statin Discontinue metoprolol succinate and start carvedilol 6.25mg BID Continue IV Lasix 40mg BID Patient was on losartan 50mg daily, however, has been held due to hyperkalemia, Will start hydralazine 25mg BID Continue to monitor renal function and electrolytes I/Os, daily weights Pulmonary is following - is on empiric IV Rocephin Further recommendations based on clinical course. Nurse practitioner note has been reviewed by physician. Signing provider agrees with the documented findings, assessment, and plan of care. Past Medical History Past Medical History: Diabetes Mellitus, Hypertension Additional Past Medical History / Comment(s): sinusitis, diverticulits History of Any Multi-Drug Resistant Organisms: None Reported Past Surgical History: Bowel Resection, Cholecystectomy Additional Past Surgical History / Comment(s): bowel resection d/t diver ticulitis, colonoscopy Past Anesthesia/Blood Transfusion Reactions: No Reported Reaction Past Psychological History: No Psychological Hx Reported Additional Psychological History / Comment(s): pt lives with his girlfriend brandy ontiveros, is independant, no assistive devices.no outside services. 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 Smoking Status: Never smoker Past Alcohol Use History: Occasional Past Drug Use History: None Reported - Past Family History Mother Additional Family Medical History / Comment(s): reproductive cancer Father Family Medical History: Diabetes Mellitus Medications and Allergies Home Medications Medication Instructions Recorded Confirmed Type glipiZIDE [Glipizide] 20 mg PO BID@0900,2100 01/29/15 06/30/20 History Pioglitazone [Actos] 30 mg PO DAILY@0900 07/20/19 06/30/20 History Clopidogrel Bisulfate [Plavix] 75 mg PO DAILY@0900 05/20/20 06/30/20 History Metoprolol Succinate (ER) [Toprol 50 mg PO DAILY@0905/20/20 06/30/20 History XL] Acetaminophen Tab [Tylenol] 650 mg PO Q6HR PRN tab 06/12/20 06/30/20 Rx Ascorbic Acid [Vitamin C] 1,000 mg PO DAILY@0906/30/20 06/30/20 History Atorvastatin [Lipitor] 80 mg PO HS@209906/30/20 06/30/20 History Famotidine [Pepcid] 40 mg PO DAILY@0906/30/20 06/30/20 History Ferrous Sulfate [Feosol] 325 mg PO DAILY@89906/30/20 06/30/20 History Furosemide [Lasix] 40 mg PO DAILY@89906/30/20 06/30/20 History Insulin Glargine,Hum.rec.anlog 60 units SQ HS@209906/30/20 06/30/20 History [Semglee Pen] Insulin Lispro [humaLOG Kwikpen] 10 unit SQ AC-TID 06/30/20 06/30/20 History Insulin Lispro [humaLOG Kwikpen] See Protocol SQ ACHS 06/30/20 06/30/20 History Levofloxacin [Levaquin] 750 mg PO DAILY 06/30/20 06/30/20 History Potassium Chloride ER [K-Dur 20] 20 meq PO DAILY@0906/30/20 06/30/20 History Zinc 50 mg PO DAILY@0906/30/20 06/30/20 History Allergies Allergy/AdvReac Type Severity Reaction Status Date / Time Mushroom Allergy Vomiting Verified 06/30/20 22:27 Penicillins Allergy Unknown Verified 06/30/20 22:27 Physical Exam Vitals: Vital Signs Temp Pulse Resp BP Pulse Ox 07/01/20 06:02 18 07/01/20 01:00 84 18 142/82 89 L 06/30/20 22:16 107 H 20 120/69 90 L 06/30/20 21:41 91 L 06/30/20 21:28 22 06/30/20 21:21 100.1 F H 102 H 22 118/56 94 L Intake and Output 06/30/20 07/01/20 07/01/20 22:59 06:59 14:59 Output Total 800 Balance -800 Output: Urine 800 Other: Voiding Method Urinal # Voids 1 Weight 138.346 kg 138.346 kg Results 06/30/20 21:52 06/30/20 21:52 Cardiac Enzymes 06/30/20 06/30/20 07/01/20 Range/Units 21:52 21:52 00:05 AST 46 (17-59) U/L Lactate Dehydrogenase 1196 H (313-618) U/L Troponin I 0.110 H* 0.122 H* (0.000-0.034) ng/mL 07/01/20 Range/Units 04:41 AST (17-59) U/L Lactate Dehydrogenase (313-618) U/L Troponin I 0.117 H* (0.000-0.034) ng/mL Coagulation 06/30/20 Range/Units 21:52 PT 9.8 (9.0-12.0) sec APTT 21.6 L (22.0-30.0) sec CBC 06/30/20 Range/Units 21:52 WBC 7.9 (3.8-10.6) k/uL RBC 2.73 L (4.30-5.90) m/uL Hgb 8.3 L D (13.0-17.5) gm/dL Hct 27.8 L (39.0-53.0) % Plt Count 281 (150-450) k/uL Comprehensive Metabolic Panel 06/30/20 Range/Units 21:52 Sodium 139 (137-145) mmol/L Potassium 5.4 H (3.5-5.1) mmol/L Chloride 102 (98-107) mmol/L Carbon Dioxide 36 H (22-30) mmol/L BUN 24 H (9-20) mg/dL Creatinine 0.98 (0.66-1.25) mg/dL Glucose 125 H (74-99) mg/dL Calcium 8.3 L (8.4-10.2) mg/dL AST 46 (17-59) U/L ALT 55 H (4-49) U/L Alkaline Phosphatase 87 (38-126) U/L Total Protein 5.3 L (6.3-8.2) g/dL Albumin 2.6 L (3.5-5.0) g/dL Current Medications Generic Name Dose Route Start Last Admin Trade Name Sebastianq PRN Reason Stop Dose Admin Furosemide 40 mg 06/30/20 23:00 06/30/20 23:55 Furosemide 10 Mg/Ml 4 Ml Vial IV 40 mg Q12H PRIYA Administration Ceftriaxone Sodium 1 gm/ 50 mls @ 100 mls/hr 07/01/20 09:00 Sodium Chloride IVPB Q12HR PRIYA Intake and Output 06/30/20 07/01/20 07/01/20 22:59 06:59 14:59 Output Total 800 Balance -800 Output: Urine 800 Other: Voiding Method Urinal # Voids 1 Weight 138.346 kg 138.346 kg 06/30/20 21:52 06/30/20 21:52
[2020-07-01] MEDS ORDERED: ENOXAPARIN 30 MG/0.3 ML SYRINGE SQ SCH (12:00)
--- NOTE | 2020-07-01 12:00 | ECHOF ---
Referral Reason:Heart Failure MEASUREMENTS -------- HEIGHT: 182.9 cm WEIGHT: 138.3 kg BP: RVIDd: 3.7 cm (< 3.3) IVSd: 1.4 cm (0.6 - 1.1) LVIDd: 5.1 cm (3.9 - 5.3) LVPWd: 1.3 cm (0.6 - 1.1) IVSs: 2.0 cm LVIDs: 3.8 cm LVPWs: 1.8 cm Ao Diam: 3.3 cm (2.0 - 3.7) AV Cusp: 1.6 cm (1.5 - 2.6) LA Diam: 4.6 cm (2.7 - 3.8) MV EXCURSION: 23.492 mm (> 18.000) MV EF SLOPE: 75 mm/s (70 - 150) EPSS: 0.5 cm MV E Daryl: 0.78 m/s MV DecT: 185 ms MV A Daryl: 1.08 m/s MV E/A Ratio: 0.72 RAP: 5.00 mmHg RVSP: 43.86 mmHg FINDINGS -------- Pacerwire seen in RV and RA. This was a technically difficult study with suboptimal views. Morbid Obesity The left ventricular size is normal. There is moderate concentric left ventricular hypertrophy. O verall left ventricular systolic function is mild-moderately impaired with, an EF between 40 - 45 %. Basal inferior LV wall motion is hypokinetic. Basal inferoseptal LV wall motion is hypokinetic. Mid inferior LV wall motion is hypokinetic. Apical inferior LV wall motion is hypokinetic. The right ventricle is mild to moderately enlarged. The left atrial size is normal. The right atrial size is normal. 5.0mg OF Lumason UTLIZED: 2 OR MORE WALL SEGMENTS NOT VISUALIZED. There is mild aortic valve sclerosis. There is no evidence of aortic regurgitation. Mild mitral annular calcification present. Mild mitral regurgitation is present. Mild tricuspid regurgitation present. There is mild to moderate pulmonary hypertension. The right ventricular systolic pressure, as measured by Doppler, is 43.86mmHg. Trace/mild (physiologic) pulmonic regurgitation. The aortic root size is normal. There is no pericardial effusion. CONCLUSIONS -------- 1. Pacerwire seen in RV and RA. 2. This was a technically difficult study with suboptimal views. 3. Morbid Obesity 4. There is moderate concentric left ventricular hypertrophy. 5. Overall left ventricular systolic function is mild-moderately impaired with, an EF between 40 - 45 %. 6. Basal inferior LV wall motion is hypokinetic. 7. Basal inferoseptal LV wall motion is hypokinetic. 8. Mid inferior LV wall motion is hypokinetic. 9. Apical inferior LV wall motion is hypokinetic. 10. The right ventricle is mild to moderately enlarged. 11. The left atrial size is normal. 12. 5.0mg OF Lumason UTLIZED: 2 OR MORE WALL SEGMENTS NOT VISUALIZED. 13. There is mild aortic valve sclerosis. 14. Mild mitral regurgitation is present. 15. Mild tricuspid regurgitation present. 16. There is mild to moderate pulmonary hypertension. 17. There is no pericardial effusion. STONE MASON: Leela Davies RDCS
--- NOTE | 2020-07-01 12:53 | P.HPIM ---
History of Present Illness This is a pleasant 80 years old male who was recently discharged from the hospital 05/20-06/12 for bilateral covid Pneumonia. He was discharge to rehab that time on 4 L/m via nasal cannula. His hospital course was complicated by lower GI bleed and GI team, thought local humerus contributing, and the recommended conservative therapy.Other chronic medical problems including diabetes mellitus, hypertension This time he was sent to ER from [facility] for increasing dyspnea his saturation were 89-93% on 5 L oxygen via nasal cannula, rest of vital signs stable and patient had fever of 100.1 Patient states that he has dyspnea for a few days but he could not specify however he denies chest pain. No coughing. Fever was documented in the emergency room. No GI or urinary symptoms. WBC is within the reference range 7.9K, hemoglobin 8.3, compared to 10.0 last time. Platelets are normal. INR is 0.9 and d-dimer 1.8. Creatinine is normal 0.9, GFR is 73, potassium is 5.4, liver enzymes are not remarkable Lactate dehydrogenase elevated 1196 as well as C-reactive protein 14.3. Troponin is elevated 0.11, 0.12, 0.11 ProBNP is 8220 Coronal virus not detected, influenza virus not detected, SV PCR not detected Chest x-ray: Pulmonary edema slightly worse than last time with evidence of congestive heart failure or RVS Recent echo on 07/22/19: Ejection fraction 45-50% with wall hypokinesia In the emergency room patient was started on ceftriaxone and Lasix 40 mg twice daily. Ceftriaxone was continued by director trust Review of Systems CONSTITUTIONAL: No fever, no malaise, no fatigue. HEENT: No recent visual problems or hearing problems. Denied any sore throat. CARDIOVASCULAR: No orthopnea, PND, no palpitations, no syncope. PULMONARY: No shortness of breath, no cough, no hemoptysis. GASTROINTESTINAL: No diarrhea, no nausea, no vomiting, no abdominal pain. Normoactive bowel sounds. NEUROLOGICAL: No headaches, no weakness, no numbness. HEMATOLOGICAL: Denies any bleeding or petechiae. GENITOURINARY: Denies any burning micturition, frequency, or urgency. MUSCULOSKELETAL/RHEUMATOLOGICAL: Denies any joint pain, swelling, or any muscle pain. ENDOCRINE: Denies any polyuria or polydipsia. Past Medical History Past Medical History: Diabetes Mellitus, Hypertension Additional Past Medical History / Comment(s): sinusitis, diverticulits History of Any Multi-Drug Resistant Organisms: None Reported Past Surgical History: Bowel Resection, Cholecystectomy Additional Past Surgical History / Comment(s): bowel resection d/t diverticulitis, colonoscopy Past Anesthesia/Blood Transfusion Reactions: No Reported Reaction Past Psychological History: No Psychological Hx Reported Additional Psychological History / Comment(s): pt lives with his girlfriend jose, is independant, no assistive devices.no outside services. 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 Smoking Status: Never smoker Past Alcohol Use History: Occasional Past Drug Use History: None Reported - Past Family History Mother Additional Family Medical History / Comment(s): reproductive cancer Father Family Medical History: Diabetes Mellitus Medications and Allergies Home Medications Medication Instructions Recorded Confirmed Type glipiZIDE [Glipizide] 20 mg PO BID@0900,209901/29/15 06/30/20 History Pioglitazone [Actos] 30 mg PO DAILY@0907/20/19 06/30/20 History Clopidogrel Bisulfate [Plavix] 75 mg PO DAILY@89905/20/20 06/30/20 History Metoprolol Succinate (ER) [Toprol 50 mg PO DAILY@89905/20/20 06/30/20 History XL] Acetaminophen Tab [Tylenol] 650 mg PO Q6HR PRN tab 06/12/20 06/30/20 Rx Ascorbic Acid [Vitamin C] 1,000 mg PO DAILY@0906/30/20 06/30/20 History Atorvastatin [Lipitor] 80 mg PO HS@209906/30/20 06/30/20 History Famotidine [Pepcid] 40 mg PO DAILY@89906/30/20 06/30/20 History Ferrous Sulfate [Feosol] 325 mg PO DAILY@89906/30/20 06/30/20 History Furosemide [Lasix] 40 mg PO DAILY@89906/30/20 06/30/20 History Insulin Glargine,Hum.rec.anlog 60 units SQ HS@209906/30/20 06/30/20 History [Semglee Pen] Insulin Lispro [humaLOG Kwikpen] 10 unit SQ AC-TID 06/30/20 06/30/20 History Insulin Lispro [humaLOG Kwikpen] See Protocol SQ ACHS 06/30/20 06/30/20 History Levofloxacin [Levaquin] 750 mg PO DAILY 06/30/20 06/30/20 History Potassium Chloride ER [K-Dur 20] 20 meq PO DAILY@0900 06/30/20 06/30/20 History Zinc 50 mg PO DAILY@0900 06/30/20 06/30/20 History Allergies Allergy/AdvReac Type Severity Reaction Status Date / Time Mushroom Allergy Vomiting Verified 06/30/20 22:27 Penicillins Allergy Unknown Verified 06/30/20 22:27 Physical Exam Vitals: Vital Signs Temp Pulse Resp BP Pulse Ox 07/01/20 08:00 98.0 F 89 18 134/79 93 L 07/01/20 06:02 18 07/01/20 01:00 84 18 142/82 89 L 06/30/20 22:16 107 H 20 120/69 90 L 06/30/20 21:41 91 L 06/30/20 21:28 22 06/30/20 21:21 100.1 F H 102 H 22 118/56 94 L Intake and Output 06/30/20 07/01/20 07/01/20 22:59 06:59 14:59 Output Total 1450 Balance -1450 Output: Urine 1450 Other: Voiding Method Urinal # Voids 1 Weight 138.346 kg 138.346 kg GENERAL: The patient is alert and oriented x3, not in any acute distress. Well developed, well nourished. HEENT: Pupils are round and equally reacting to light. EOMI. No scleral icterus. No conjunctival pallor. Normocephalic, atraumatic. No pharyngeal erythema. No thyromegaly. CARDIOVASCULAR: S1 and S2 present. No murmurs, rubs, or gallops. PULMONARY: Chest is clear to auscultation, no wheezing or crackles. ABDOMEN: Soft, nontender, nondistended, normoactive bowel sounds. No palpable organomegaly. MUSCULOSKELETAL: No joint swelling or deformity. EXTREMITIES: No cyanosis, clubbing, or pedal edema. NEUROLOGICAL: Gross neurological examination did not reveal any focal deficits. SKIN: No rashes. No petechiae Results CBC & Chem 7: 06/30/20 21:52 06/30/20 21:52 Labs: Abnormal Lab Results - Last 24 Hours (Table) 06/30/20 06/30/20 06/30/20 Range/Units 21:52 21:52 21:52 RBC 2.73 L (4.30-5.90) m/uL Hgb 8.3 L D (13.0-17.5) gm/dL Hct 27.8 L (39.0-53.0) % MCV 102.1 H D (80.0-100.0) fL MCHC 29.9 L (31.0-37.0) g/dL RDW 17.5 H (11.5-15.5) % Monocytes # 1.1 H (0-1.0) k/uL APTT 21.6 L (22.0-30.0) sec D-Dimer 1.83 H (<0.60) mg/L FEU Potassium 5.4 H (3.5-5.1) mmol/L Carbon Dioxide 36 H (22-30) mmol/L BUN 24 H (9-20) mg/dL Glucose 125 H (74-99) mg/dL Calcium 8.3 L (8.4-10.2) mg/dL ALT 55 H (4-49) U/L Lactate Dehydrogenase 1196 H (313-618) U/L Troponin I (0.000-0.034) ng/mL C-Reactive Protein 14.3 H (<1.0) mg/dL Total Protein 5.3 L (6.3-8.2) g/dL Albumin 2.6 L (3.5-5.0) g/dL 06/30/20 07/01/20 07/01/20 Range/Units 21:52 00:05 04:41 RBC (4.30-5.90) m/uL Hgb (13.0-17.5) gm/dL Hct (39.0-53.0) % MCV (80.0-100.0) fL MCHC (31.0-37.0) g/dL RDW (11.5-15.5) % Monocytes # (0-1.0) k/uL APTT (22.0-30.0) sec D-Dimer (<0.60) mg/L FEU Potassium (3.5-5.1) mmol/L Carbon Dioxide (22-30) mmol/L BUN (9-20) mg/dL Glucose (74-99) mg/dL Calcium (8.4-10.2) mg/dL ALT (4-49) U/L Lactate Dehydrogenase (313-618) U/L Troponin I 0.110 H* 0.122 H* 0.117 H* (0.000-0.034) ng/mL C-Reactive Protein (<1.0) mg/dL Total Protein (6.3-8.2) g/dL Albumin (3.5-5.0) g/dL Thrombosis Risk Factor Assmnt - Choose All That Apply Any of the Below Risk Factors Present?: No Other Risk Factors: Yes Each Risk Factor Represents 3 Points: Age 75 years or older Other congenital or acquired thrombophilia - If yes, enter type in comment: No Thrombosis Risk Factor Assessment Total Risk Factor Score: 3 Thrombosis Risk Factor Assessment Level: Moderate Risk Assessment and Plan Assessment: Acute pulmonary edema with acute on chronic CHF with ejection fraction 45-50% Acute hypoxic respiratory failure Elevated troponin, could be due to renal disease versus coronary artery disease Fever on admission, possible due to pneumonia Recent covid infection (hospitalized 05/20-06/12) Chronic kidney disease stage III Plan: This is a pleasant 80 years old male who presents with systolic CHF, possible pneumonia and elevated troponin. Continue with Lasix, continue with ceftriaxone. Follow-up sputum culture and broughtcalcitonin. Cardiology consult. Pulmonary team were already consulted. Continue with Plavix. Labs and medication were reviewed.. Continue same treatment. Continue with symptomatic treatment. Resume home medication. Monitor lytes and vitals. DVT and GI prophylaxis. Further recommendations depends on the clinical course of the patient DVT prophylaxis: Subcutaneous Lovenox GI Prophylaxis: Pepcid Prognosis is guarded
[2020-07-01] MEDS: ENOXAPARIN 40 MG/0.4 ML SYRINGE SQ SCH (17:25)
[2020-07-01] MEDS: glipiZIDE 10 MG TAB PO SCH (22:01)
[2020-07-01] MEDS: ATORVASTATIN 80 MG TAB PO SCH (22:01)
[2020-07-02 04:25] LABS: Calcium 8.4 mg/dL (8.4-10.2)
[2020-07-02 05:51] LABS: Anisocytosis Slight; Basophils # (A) 0.1 k/uL (0-0.2); Basophils % (A) 1 %; Eosinophils # (A) 0.1 k/uL (0-0.7); Eosinophils % (A) 1 %; HCT 27.8 % (39.0-53.0); HGB 8.4 gm/dL (13.0-17.5); Hypochromasia Marked; Lymphocytes # (A) 1.6 k/uL (1.0-4.8); Lymphocytes % (A) 24 %; MCH 30.9 pg (25.0-35.0); MCV 102.9 fL (80.0-100.0); Macrocytosis Moderate; Mean Platelet Volume 9.2; Monocytes % (A) 14 %; Neutrophils # (A) 3.9 k/uL (1.3-7.7); Neutrophils % (A) 56 %; Platelet Count 303 k/uL (150-450); RDW 17.3 % (11.5-15.5)
[2020-07-02] MEDS: carvediloL 6.25 MG TAB PO SCH ×2 (06:56→17:13)
[2020-07-02] MEDS ORDERED: POTASSIUM CHLORIDE ER 20 MEQ TAB.ER PO SCH (09:00)
[2020-07-02] MEDS ORDERED: METOPROLOL SUCCINATE (ER) 50 MG TAB.ER.24H PO SCH (09:00)
[2020-07-02] MEDS: ASCORBIC ACID 500 MG TAB PO SCH (09:13)
[2020-07-02] MEDS: ASPIRIN 81 MG PO SCH (09:13)
[2020-07-02] MEDS: glipiZIDE 10 MG TAB PO SCH ×2 (09:13→20:07)
[2020-07-02] MEDS: FAMOTIDINE 20 MG TAB PO SCH (09:13)
[2020-07-02] MEDS: ISOSORBIDE MONONITRATE ER 30 MG TAB.ER.24H PO SCH (09:13)
[2020-07-02] MEDS: ZINC SULFATE 220 MG CAP PO SCH (09:14)
[2020-07-02] MEDS: FERROUS SULFATE 325 MG TAB PO SCH (09:14)
[2020-07-02] MEDS: hydrALAZINE HCL 25 MG TAB PO SCH ×2 (09:14→20:07)
[2020-07-02] MEDS: ENOXAPARIN 40 MG/0.4 ML SYRINGE SQ SCH (09:14)
[2020-07-02] MEDS: CLOPIDOGREL 75 MG TAB PO SCH (09:15)
[2020-07-02] MEDS: FUROSEMIDE 10 MG/ML 4 ML VIAL IV SCH ×2 (11:10→23:27)
[2020-07-02 13:55] VITALS: BMI 39.1
--- NOTE | 2020-07-02 15:22 | P.PN ---
Subjective Progress Note Date: 07/02/20 Principal diagnosis: Shortness of breath. This is a 80-year-old white male patient who was recently hospitalized from 05/20/2020 through 06/12/2020 for COVID-19 pneumonia, and patient had a prolonged hospitalization course, with the severe hypoxemic respiratory failure related to COVID-19 pneumonia. Patient was treated with steroids, he received 2 doses of Tocilizumab while in the hospital, and was discharged to a rehabilitation facility the senior care home. His hospitalization was complicated by lower GI bleeding and acute kidney injury. The GI bleeding resolved on its own. He is currently not on any anticoagulation. His past medical history is positive for hypertension, type 2 diabetes mellitus and his sugars have been poorly controlled related to systemic steroids, patient is a former smoker. Patient was brought into the emergency department on 06/30/2020 at 2100 by EMS for evaluation of worsening shortness of breath and fever. he is very hard of hearing, he is a poor historian, but chest x-ray in the emergency department showed pulmonary interstitial and airspace edema, left basilar pacemaker in place. Denies any coughing, denies any chest congestion or phlegm production. Her low-grade fever in the emergency department with a temp of 100.1F. On 5 L of oxygen pulse ox is 93%. His blood work showed normal white count of 7.9, hemoglobin is 8.3, his platelet count is 281, d-dimer is 1.83, INR 0.9, sodium is 139, potassium is 5.4, chloride is 102, CO2 is 26, B1 is 24, creatinine 0.9, lactic acid was 1.2, LDH was 1196, patient had troponin elevation of 0.110, 0.122, and 0.117, his proBNP came back elevated at 8220, and pro-calcitonin level is pending right now, patient was retested for COVID-19 and was found to be negative, RSV, influenza A and B PCR were negative. Progress note dated 07/02/2020. 80-year-old male, admitted with a diagnosis of acute on chronic shortness of breath, and respiratory failure, secondary to CHF exacerbation. The patient also has a history of recent COVID 19 pneumonia, emphysema discharged to a [facility]. Other medical problems including acute coronary syndrome, ischemic cardiomyopathy, severe pulmonary hypertension, obesity, diabetes, anemia, and general medical ability. The patient's currently on 5 L nasal cannula. Saturations are 9092%. He is not receiving any IV fluids. He is getting Rocephin. The patient is lying on his right side. He's extremely deaf. He apparently is telling his nurse all he wants to do his diet. He seems not very motivated to get better. Labs today include a white count 7, hemoglobin 8.4, hematocrit 27.8, and platelet count 303,000. D-dimer from 2 days ago was 1.83. Sodium, potassium, chlorides are all normal. CO2 is 37, anion gap is 1, BUN is 29 with a creatinine of 1.04. Troponins were 0.110, 0.122, and 0.117. N- terminal proBNP was 8220. Pro-calcitonin was 0.13. Objective - Vital Signs Vital signs: Vital Signs Temp 98.7 F 07/02/20 15:01 Pulse 85 07/02/20 15:01 Resp 16 07/02/20 15:01 BP 120/60 07/02/20 15:01 Pulse Ox 95 07/02/20 15:01 Intake & Output 07/01/20 07/02/20 07/02/20 18:59 06:59 18:59 Intake Total 480 Output Total 1450 725 825 Balance -1450 -725 -345 Weight 138.346 kg Intake: Oral 480 Output: Urine 1450 725 825 Other: Voiding Method Urinal Urinal # Voids 1 1 - Exam No acute distress, oriented 3. No acute distress, currently on 5 L, saturations 90-92%. HEENT examination is grossly unremarkable. Mucous membranes are moist. No oral lesions. Neck supple. Full range of motion. No adenopathy thyromegaly or neck vein distention. Cardiovascular examination reveals regular rhythm rate. S1-S2 normal. No S3 or S4. No discernible murmur noted. Heart rate is 82 bpm. Lungs reveal bibasilar crackles. No rhonchi or wheezes. Breath sounds equal bilaterally. Abdomen soft bowel sounds are heard. No masses or tenderness. Extremities are intact. No cyanosis or clubbing. There is peripheral edema. Skin is without rash or lesion. Neurologic examination is brief but nonfocal. - Labs CBC & Chem 7: 07/02/20 03:14 07/02/20 03:14 Labs: Abnormal Lab Results - Last 24 Hours (Table) 07/01/20 07/02/20 07/02/20 Range/Units 04:41 03:14 03:14 RBC 2.70 L (4.30-5.90) m/uL Hgb 8.4 L (13.0-17.5) gm/dL Hct 27.8 L (39.0-53.0) % MCV 102.9 H (80.0-100.0) fL MCHC 30.0 L (31.0-37.0) g/dL RDW 17.3 H (11.5-15.5) % Carbon Dioxide 37 H (22-30) mmol/L BUN 29 H (9-20) mg/dL Glucose 173 H (74-99) mg/dL Procalcitonin 0.13 H (0.02-0.09) ng/mL Assessment and Plan Assessment: Acute on chronic shortness breath, with hypoxemic respiratory failure, secondary to CHF exacerbation, with systolic dysfunction. Recent hospitalization for COVID 19 pneumonia, status post discharged to a nursing facility. Rule out non-ST segment elevation myocardial infarction. Coronary artery disease, with previous stenting. History of ischemic cardiomyopathy, status post AICD. History of moderate to severe pulmonary hypertension. Type 2 diabetes mellitus. History of chronic anemia. Previous history of tobacco use. General medical debility. Plan: Plan dated 07/02/2020. The patient will continue with Lasix therapy. In addition, I try to motivate him to get better. He is lying on his side, stating that he wishes to , and I told him that he wants to get better, he needs to be more motivated. Medi cations, ALLERGIES, problem list, and x-ray reports and radiographic picture are all reviewed. Current microbiology is negative are pending. Currently, the patient's on vitamin C, Lovenox, zinc, and usual medications. No additional recommendations are made. Prognosis is guarded. Time with Patient: Less than 30
--- NOTE | 2020-07-02 16:49 | P.PN ---
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 Follows in the office with Dr. Stephenson. We are being consulted for congestive heart failure and elevated troponin. Patient presents to the emergency department with shortness of breath and fever. Patient is a poor historian, very hard of hearing. Patient recently hospitalized on 05/20/20- 06/12/20 with COVID-19 pneumonia. Patient denies chest pain, palpitations, syncope or near syncope. DIAGNOSTICS EKG: sinus rhythm with first degree AV block, Twave inversions, leads I, aVL, ST depression in leads V2, V3. Echo 04/2020 in the office- EF 35-40%, mild TR, mild MR, grade 1 diastolic dysfunction Chest x-ray- pulmonary edema is slightly worse than last exam Laboratory data reviewed, Troponin 0.11, 0.12, 0.11, BNP 8,220, d-dimer 1.83, Sodium 139, K 5.4, sCr 0.98, magnesium 1.9, LDH elevated, CRP elevated, total protein 5.3, Albumin 2.6, Viral PCR negative, Covid-19 negative, Hgb 8.3, WBC 7.9, Plt 281 07/02/20: 2-D echo obtained revealed EF between 40-45%, with wall motion abnormalities, mild MR, mild TR, mild to moderate pulmonary hypertension, no pericardial effusion. Patient with 2 L of urine output yesterday. No change in weight today. Laboratory data reviewed. Sodium 140, potassium 5.0, serum creatinine 1.04, BUN 29, magnesium 2.0, BNP 8220 PHYSICAL EXAM: VITAL SIGNS: Reviewed, still requiring 5L nasal cannula GENERAL: No acute distress. HEENT: Head is normocephalic. No JVD or thyromegaly LUNGS: Respirations even and unlabored. Lungs bibasilar crackles HEART: Regular rate and rhythm. S1 and S2 heard. ABDOMEN: Soft. Nondistended. Nontender. EXTREMITIES: Normal range of motion. No clubbing or cyanosis. Peripheral pulses intact. NEUROLOGIC: Awake and alert. Oriented x 3. ASSESSMENT: Coronary artery disease s/p PCI mid RCA, proximal RCA in 07/2019, Acute on chronic heart failure with reduced ejection fraction Mildly elevated troponin- not likely acute coronary syndrome, troponin not increasing, patient denies chest discomfort Ischemic cardiomyopathy Permanent cardiac pacemaker Type 2 Diabetes HTN Dyslipidemia Recent hospitalization for COVID-19, was discharged to a nursing facility. PLAN: Continue IV Lasix 40mg BID for 24 more hours Continue dual antiplatelet therapy- plavix and aspirin. Continue statin Continue carvedilol 6.25mg BID Patient was on losartan 50mg daily, however, has been held due to hyperkalemia, Will continue hydralazine 25mg BID, Hyperkalemia is improving. Will check BMP tomorrow Continue to monitor renal function and electrolytes I/Os, daily weights Pulmonary is following - is on empiric IV Rocephin Further recommendations based on clinical course. Nurse practitioner note has been reviewed by physician. Signing provider agrees with the documented findings, assessment, and plan of care. Objective - Vital Signs Vital signs: Vital Signs Temp 98.7 F 07/02/20 15:01 Pulse 85 07/02/20 15:01 Resp 16 07/02/20 15:01 BP 120/60 07/02/20 15:01 Pulse Ox 95 07/02/20 15:01 Intake & Output 07/01/20 07/02/20 07/02/20 18:59 06:59 18:59 Intake Total 480 Output Total 1450 725 825 Balance -1450 -725 -345 Weight 138.346 kg Intake: Oral 480 Output: Urine 1450 725 825 Other: Voiding Method Urinal Urinal # Voids 1 1 - Labs CBC & Chem 7: 07/02/20 03:14 07/02/20 03:14 Labs: Abnormal Lab Results - Last 24 Hours (Table) 07/01/20 07/02/20 07/02/20 Range/Units 04:41 03:14 03:14 RBC 2.70 L (4.30-5.90) m/uL Hgb 8.4 L (13.0-17.5) gm/dL Hct 27.8 L (39.0-53.0) % MCV 102.9 H (80.0-100.0) fL MCHC 30.0 L (31.0-37.0) g/dL RDW 17.3 H (11.5-15.5) % Carbon Dioxide 37 H (22-30) mmol/L BUN 29 H (9-20) mg/dL Glucose 173 H (74-99) mg/dL Procalcitonin 0.13 H (0.02-0.09) ng/mL
[2020-07-02 16:54] LABS: Glucose,Whole Blood 231 mg/dL (75-99)
[2020-07-02 20:03] LABS: Glucose,Whole Blood 288 mg/dL (75-99)
[2020-07-02] MEDS: ATORVASTATIN 80 MG TAB PO SCH (20:07)
--- NOTE | 2020-07-02 22:22 | P.PN ---
Subjective This is a pleasant 80 years old male who was recently discharged from the hospital 05/20-06/12 for bilateral covid Pneumonia. He was discharge to rehab that time on 4 L/m via nasal cannula. His hospital course was complicated by lower GI bleed and GI team, thought local humerus contributing, and the recommended conservative therapy.Other chronic medical problems including diabetes mellitus, hypertension This time he was sent to ER from [facility] for increasing dyspnea his saturation were 89-93% on 5 L oxygen via nasal cannula, rest of vital signs stable and patient had fever of 100.1 Patient states that he has dyspnea for a few days but he could not specify however he denies chest pain. No coughing. Fever was documented in the emergency room. No GI or urinary symptoms. WBC is within the reference range 7.9K, hemoglobin 8.3, compared to 10.0 last time. Platelets are normal. INR is 0.9 and d-dimer 1.8. Creatinine is normal 0.9, GFR is 73, potassium is 5.4, liver enzymes are not remarkable Lactate dehydrogenase elevated 1196 as well as C-reactive protein 14.3. Troponin is elevated 0.11, 0.12, 0.11 ProBNP is 8220 Coronal virus not detected, influenza virus not detected, SV PCR not detected Chest x-ray: Pulmonary edema slightly worse than last time with evidence of congestive heart failure or RVS Recent echo on 07/22/19: Ejection fraction 45-50% with wall hypokinesia In the emergency room patient was started on ceftriaxone and Lasix 40 mg twice daily. Ceftriaxone was continued by simulation analyst 07/02/2020 Patient dyspnea is improving and today he was sitting at bedside however he still gets short of breath with exertion. He remains on 5 L of oxygen via nasal cannula. On exam he still have bilateral basal and mid plunk amputation. Patient is hemodynamically stable, labs reviewed and hemoglobin is stable. He remains on ceftriaxone as he has fever on admission and pneumonia is suspected Also he remains on Lasix 40 mg IV twice daily. Aspirin is admitted today to have his Plavix which is home medication per cardiology team recommendation Triamcinolone 0.1% topical is admitted to both legs for dermatitis with scaling Objective - Vital Signs Vital signs: Vital Signs Temp 98.3 F 07/02/20 19:40 Pulse 69 07/02/20 19:40 Resp 22 07/02/20 19:40 BP 123/58 07/02/20 19:40 Pulse Ox 90 L 07/02/20 19:40 Intake & Output 07/02/20 07/02/20 07/03/20 06:59 18:59 06:59 Intake Total 480 240 Output Total 497 568 2521 Balance -725 -345 -860 Weight 138.346 kg Intake: Oral 480 240 Output: Urine 551 017 9995 Other: Voiding Method Urinal Urinal # Voids 1 - Exam -GENERAL: The patient is alert and oriented x3, not in any acute distress. Obes e HEENT: Pupils are round and equally reacting to light. EOMI. No scleral icterus. No conjunctival pallor. Normocephalic, atraumatic. No pharyngeal erythema. No thyromegaly. CARDIOVASCULAR: S1 and S2 present. No murmurs, rubs, or gallops. -PULMONARY: Chest is clear to auscultation, no bilateral basal crepitation. No wheezing ABDOMEN: Soft, nontender, nondistended, normoactive bowel sounds. No palpable organomegaly. MUSCULOSKELETAL: No joint swelling or deformity. -EXTREMITIES: No cyanosis, clubbing, or pedal edema. Bilateral leg redness and scaling from dermatitis NEUROLOGICAL: Gross neurological examination did not reveal any focal deficits. SKIN: No rashes. no petechiae. - Labs CBC & Chem 7: 07/02/20 03:14 07/02/20 03:14 Labs: Abnormal Lab Results - Last 24 Hours (Table) 07/02/20 07/02/20 07/02/20 Range/Units 03:14 03:14 16:52 RBC 2.70 L (4.30-5.90) m/uL Hgb 8.4 L (13.0-17.5) gm/dL Hct 27.8 L (39.0-53.0) % MCV 102.9 H (80.0-100.0) fL MCHC 30.0 L (31.0-37.0) g/dL RDW 17.3 H (11.5-15.5) % Carbon Dioxide 37 H (22-30) mmol/L BUN 29 H (9-20) mg/dL Glucose 173 H (74-99) mg/dL POC Glucose (mg/dL) 231 H (75-99) mg/dL 07/02/20 Range/Units 20:01 RBC (4.30-5.90) m/uL Hgb (13.0-17.5) gm/dL Hct (39.0-53.0) % MCV (80.0-100.0) fL MCHC (31.0-37.0) g/dL RDW (11.5-15.5) % Carbon Dioxide (22-30) mmol/L BUN (9-20) mg/dL Glucose (74-99) mg/dL POC Glucose (mg/dL) 288 H (75-99) mg/dL Assessment and Plan Assessment: Acute pulmonary edema with acute on chronic CHF with ejection fraction 45-50% Acute hypoxic respiratory failure Elevated troponin, could be due to renal disease versus coronary artery disease Fever on admission, possible due to pneumonia Bilateral leg dermatitis Recent covid infection (hospitalized 05/20-06/12) Chronic kidney disease stage III Plan: This is a pleasant 80 years old male who presents with systolic CHF, possible pneumonia and elevated troponin. Continue with Lasix, continue with ceftriaxone. Follow-up sputum culture , Cardiology consult. Pulmonary team were already consulted. Continue with Plavix. Aspirin added. Start triamcinolone ointment Labs and medication were reviewed.. Continue same treatment. Continue with symptomatic treatment. Resume home medication. Monitor lytes and vitals. DVT and GI prophylaxis. Further recommendations depends on the clinical course of the patient DVT prophylaxis: Subcutaneous Lovenox GI Prophylaxis: Pepcid Prognosis is guarded
[2020-07-03] MEDS: TRIAMCINOLONE ACET 0.1% OINTMENT 15 GM TUBE TOPICAL SCH ×4 (03:17→20:40)
[2020-07-03 06:20] LABS: Glucose,Whole Blood 212 mg/dL (75-99)
[2020-07-03] MEDS: carvediloL 6.25 MG TAB PO SCH ×2 (06:38→16:20)
--- NOTE | 2020-07-03 07:29 | XR ---
EXAMINATION TYPE: XR chest 1V DATE OF EXAM: 07/03/2020 COMPARISON: 06/30/2020 HISTORY: Shortness of breath TECHNIQUE: Single frontal view of the chest is obtained. FINDINGS: Diffuse bilateral airspace disease stable. Cardiac device stable. Small bilateral pleural effusions. No pneumothorax. Heart size stable. IMPRESSION: Diffuse bilateral airspace disease stable
--- NOTE | 2020-07-03 08:54 | P.PN ---
Subjective This is a pleasant 80 years old male who was recently discharged from the hospital 05/20-06/12 for bilateral covid Pneumonia. He was discharge to rehab that time on 4 L/m via nasal cannula. His hospital course was complicated by lower GI bleed and GI team, thought local humerus contributing, and the recommended conservative therapy.Other chronic medical problems including diabetes mellitus, hypertension This time he was sent to ER from [facility] for increasing dyspnea his saturation were 89-93% on 5 L oxygen via nasal cannula, rest of vital signs stable and patient had fever of 100.1 Patient states that he has dyspnea for a few days but he could not specify however he denies chest pain. No coughing. Fever was documented in the emergency room. No GI or urinary symptoms. WBC is within the reference range 7.9K, hemoglobin 8.3, compared to 10.0 last time. Platelets are normal. INR is 0.9 and d-dimer 1.8. Creatinine is normal 0.9, GFR is 73, potassium is 5.4, liver enzymes are not remarkable Lactate dehydrogenase elevated 1196 as well as C-reactive protein 14.3. Troponin is elevated 0.11, 0.12, 0.11 ProBNP is 8220 Coronal virus not detected, influenza virus not detected, SV PCR not detected Chest x-ray: Pulmonary edema slightly worse than last time with evidence of congestive heart failure or RVS Recent echo on 07/22/19: Ejection fraction 45-50% with wall hypokinesia In the emergency room patient was started on ceftriaxone and Lasix 40 mg twice daily. Ceftriaxone was continued by blanket maker 07/02/2020 Patient dyspnea is improving and today he was sitting at bedside however he still gets short of breath with exertion. He remains on 5 L of oxygen via nasal cannula. On exam he still have bilateral basal and mid plunk amputation. Patient is hemodynamically stable, labs reviewed and hemoglobin is stable. He remains on ceftriaxone as he has fever on admission and pneumonia is suspected Also he remains on Lasix 40 mg IV twice daily. Aspirin is admitted today to have his Plavix which is home medication per cardiology team recommendation Triamcinolone 0.1% topical is admitted to both legs for dermatitis with scaling 07/03/2020 Patient oxygen requirement increased last night to 15 L/m to keep oxygen saturation in the low 90s, he was slightly placed on BiPAP overnight and this morning, patient looks tired while as on BiPAP. With setting of 12/6 and FiO2 of 60%. Labs from today are still pending He had fever on admission and subsided. Repeat chest x-ray today showing bilateral infiltrates, similar to yesterday. Pulmonary and cardiology teams on the case Echocardiogram showed ejection fraction of 40-45% with moderate LVH and hypokinesia. patient remains on Lasix 40 mg twice daily, and ceftriaxone for fever on admission. Also he is on Plavix at home while aspirin 81 mg is added yesterday. coronavirus was not detected on admission Review of systems: N/a, patient currently on BiPAP and tired Active Medications Generic Name Dose Route Start Last Admin Trade Name Freq PRN Reason Stop Dose Admin Ascorbic Acid 1,000 mg 07/02/20 09:00 07/02/20 09:13 Ascorbic Acid 500 Mg Tab PO 1,000 mg DAILY@0900 PRIYA Administration Aspirin 81 mg 07/02/20 09:00 07/02/20 09:13 Aspirin 81 Mg PO 81 mg DAILY PRIYA Administration Atorvastatin Calcium 80 mg 07/01/20 21:00 07/02/20 20:07 Atorvastatin 80 Mg Tab PO 80 mg HS@2100 PRIYA Administration Carvedilol 6.25 mg 07/01/20 08:45 07/03/20 06:38 Carvedilol 6.25 Mg Tab PO 6.25 mg BID-W/MEALS PRIYA Administration Clopidogrel Bisulfate 75 mg 07/02/20 09:00 07/02/20 09:15 Clopidogrel 75 Mg Tab PO 75 mg DAILY@0900 PRIYA Administration Enoxaparin Sodium 40 mg 07/01/20 12:00 07/02/20 09:14 Enoxaparin 40 Mg/0.4 Ml Syringe SQ 40 mg DAILY PRIYA Administration Famotidine 40 mg 07/02/20 09:00 07/02/20 09:13 Famotidine 20 Mg Tab PO 40 mg DAILY@0900 PRIYA Administration Ferrous Sulfate 325 mg 07/02/20 09:00 07/02/20 09:14 Ferrous Sulfate 325 Mg Tab PO 325 mg DAILY@0900 PRIYA Administration Furosemide 40 mg 06/30/20 23:00 07/02/20 23:27 Furosemide 10 Mg/Ml 4 Ml Vial IV 40 mg Q12H PRIYA Administration Glipizide 20 mg 07/01/20 21:00 07/02/20 20:07 Glipizide 10 Mg Tab PO 20 mg BID@0900,2100 PRIYA Administration Hydralazine HCl 25 mg 07/01/20 09:00 07/02/20 20:07 Hydralazine Hcl 25 Mg Tab PO 25 mg BID PRIYA Administration Ceftriaxone Sodium 1 gm/ 50 mls @ 100 mls/hr 07/02/20 09:00 07/02/20 09:14 Sodium Chloride IVPB 100 mls/hr Q24HR PRIYA Administration Isosorbide Mononitrate 30 mg 07/01/20 09:00 07/02/20 09:13 Isosorbide Mononitrate Er 30 Mg Tab.Er.24h PO 30 mg DAILY PRIYA Administration Triamcinolone Acetonide 1 applic 07/02/20 22:30 07/03/20 03:17 Triamcinolone Acet 0.1% Ointment 15 Gm Tube TOPICAL Not Given TID PRIYA Zinc Sulfate 220 mg 07/02/20 09:00 07/02/20 09:14 Zinc Sulfate 220 Mg Cap PO 220 mg DAILY@0900 PRIYA Administration Objective - Vital Signs Vital signs: Vital Signs Temp 97.8 F 07/03/20 08:12 Pulse 62 07/03/20 08:12 Resp 17 07/03/20 08:12 BP 129/63 07/03/20 08:12 Pulse Ox 98 07/03/20 08:12 Intake & Output 07/02/20 07/03/20 07/03/20 18:59 06:59 18:59 Intake Total 480 240 Output Total 825 1880 Balance -345 -1640 Weight 138.346 kg 145 kg Intake: Oral 480 240 Output: Urine 825 1880 Other: Voiding Method Urinal Urinal # Voids 1 - Exam -GENERAL: The patient is alert and oriented x3, not in any acute distress. Obese HEENT: Pupils are round and equally reacting to light. EOMI. No scleral icterus. No conjunctival pallor. Normocephalic, atraumatic. No pharyngeal erythema. No thyromegaly. CARDIOVASCULAR: S1 and S2 present. No murmurs, rubs, or gallops. -PULMONARY: Chest is clear to auscultation, no bilateral basal crepitation. No wheezing ABDOMEN: Soft, nontender, nondistended, normoactive bowel sounds. No palpable organomegaly. MUSCULOSKELETAL: No joint swelling or deformity. -EXTREMITIES: No cyanosis, clubbing, or pedal edema. Bilateral leg redness and scaling from dermatitis NEUROLOGICAL: Gross neurological examination did not reveal any focal deficits. SKIN: No rashes. no petechiae. - Labs CBC & Chem 7: 07/02/20 03:14 07/02/20 03:14 Labs: Abnormal Lab Results - Last 24 Hours (Table) 07/02/20 07/02/20 07/03/20 Range/Units 16:52 20:01 06:15 POC Glucose (mg/dL) 231 H 288 H 212 H (75-99) mg/dL Assessment and Plan Assessment: Acute pulmonary edema with acute on chronic CHF with ejection fraction 45-50% Acute hypoxic respiratory failure Elevated troponin, could be due to renal disease versus coronary artery disease Fever on admission, possible due to pneumonia Bilateral leg dermatitis Recent covid infection (hospitalized 05/20-06/12) Chronic kidney disease stage III Plan: This is a pleasant 80 years old male who presents with systolic CHF, possible pneumonia and elevated troponin. Continue with Lasix, continue with ceftriaxone. Follow-up sputum culture , Cardiology consult. Pulmonary team were already consulted. Continue with Plavix. Aspirin added. Start triamcinolone ointment. Continue with oxygen supplementation to keep saturating above 90% Labs and medication were reviewed.. Continue same treatment. Continue with symptomatic treatment. Resume home medication. Monitor lytes and vitals. DVT and GI prophylaxis. Further recommendations depends on the clinical course of the patient DVT prophylaxis: Subcutaneous Lovenox GI Prophylaxis: Pepcid Prognosis is guarded
[2020-07-03 09:04] LABS: Calcium 8.4 mg/dL (8.4-10.2); Magnesium 2.1 mg/dL (1.6-2.3); Potassium 4.6 mmol/L (3.5-5.1)
[2020-07-03 09:07] LABS: Anisocytosis Slight; HCT 26.2 % (39.0-53.0); HGB 7.8 gm/dL (13.0-17.5); Hypochromasia Marked; MCH 30.2 pg (25.0-35.0); MCHC 29.6 g/dL (31.0-37.0); MCV 101.9 fL (80.0-100.0); Macrocytosis Moderate; Mean Platelet Volume 8.1; Platelet Count 378 k/uL (150-450); RBC 2.57 m/uL (4.30-5.90); RDW 17.1 % (11.5-15.5); WBC 6.8 k/uL (3.8-10.6)
[2020-07-03] MEDS: ASCORBIC ACID 500 MG TAB PO SCH (09:27)
[2020-07-03] MEDS: FERROUS SULFATE 325 MG TAB PO SCH (09:28)
[2020-07-03] MEDS: CLOPIDOGREL 75 MG TAB PO SCH (09:28)
[2020-07-03] MEDS: ASPIRIN 81 MG PO SCH (09:28)
[2020-07-03] MEDS: hydrALAZINE HCL 25 MG TAB PO SCH ×2 (09:28→19:53)
[2020-07-03] MEDS: ZINC SULFATE 220 MG CAP PO SCH (09:28)
[2020-07-03] MEDS: FAMOTIDINE 20 MG TAB PO SCH (09:28)
[2020-07-03] MEDS: ISOSORBIDE MONONITRATE ER 30 MG TAB.ER.24H PO SCH (09:28)
[2020-07-03] MEDS: ENOXAPARIN 40 MG/0.4 ML SYRINGE SQ SCH (09:29)
[2020-07-03] MEDS: glipiZIDE 10 MG TAB PO SCH ×2 (09:29→19:53)
[2020-07-03 09:34] LABS: Basophils # (M) 0.07 k/uL (0-0.2); Eosinophils # (M) 0.14 k/uL (0-0.7); Lymphocytes # (M) 1.56 k/uL (1.0-4.8); Monocytes # (M) 1.16 k/uL (0-1.0); Neutrophils # (M) 3.88 k/uL (1.3-7.7); Neutrophils % (M) 57 %; Nucleated Red Blood Cells 0 /100 WBC (0-0); Total Cells Counted 100
[2020-07-03 11:46] LABS: Glucose,Whole Blood 210 mg/dL (75-99)
[2020-07-03] MEDS: FUROSEMIDE 10 MG/ML 4 ML VIAL IV SCH ×2 (13:07→15:15)
--- NOTE | 2020-07-03 13:22 | P.PN ---
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 Follows in the office with Dr. Stephenson. We are being consulted for congestive heart failure and elevated troponin. Patient presents to the emergency department with shortness of breath and fever. Patient is a poor historian, very hard of hearing. Patient recently hospitalized on 05/20/20- 06/12/20 with COVID-19 pneumonia. Patient denies chest pain, palpitations, syncope or near syncope. DIAGNOSTICS EKG: sinus rhythm with first degree AV block, Twave inversions, leads I, aVL, ST depression in leads V2, V3. Echo 04/2020 in the office- EF 35-40%, mild TR, mild MR, grade 1 diastolic dysfunction Chest x-ray- pulmonary edema is slightly worse than last exam Laboratory data reviewed, Troponin 0.11, 0.12, 0.11, BNP 8,220, d-dimer 1.83, Viral PCR negative, Covid-19 negative 07/02/20: 2-D echo obtained revealed EF between 40-45%, with hypokinesis, mild MR, mild TR, mild to moderate pulmonary hypertension, no pericardial effusion. 07/03/20: Patient seen and examined at bedside, no acute distress. He states his breathing has improved however continues to be short of breath with ambulation. Overnight patient requiring increased oxygen requirements up to 15 L high flow nasal cannula. Patient requiring BiPAP last night. Repeat chest x-ray shows diffuse bilateral infiltrates, heart size is stable. Patient's laboratory data reviewed, hemoglobin 7.8 (8.4 yesterday), sodium 140, potassium 4.6, serum creatinine increased 1.31 (1.04 yesterday), magnesium 2.1. PHYSICAL EXAM: VITAL SIGNS: Reviewed GENERAL: No acute distress. Appears debilitated. HEENT: Head is normocephalic. No JVD or thyromegaly LUNGS: Respirations even and unlabored. Lungs bibasilar crackles HEART: Regular rate and rhythm. S1 and S2 heard. ABDOMEN: Soft. Nondistended. Nontender. EXTREMITIES: 3+ pitting Bilateral pedal edema. NEUROLOGIC: Awake and alert. Oriented x 3. ASSESSMENT: Acute Hypoxic Respiratory failure - Patient was started on rocephin for possible pneumonia Coronary artery disease s/p PCI mid RCA, proximal RCA in 07/2019, Acute on chronic heart failure with reduced ejection fraction Mildly elevated troponin- not likely acute coronary syndrome, troponin not increasing, patient denies chest discomfort. most likely realted to patient's CKD and hypoxia Ischemic cardiomyopathy Permanent cardiac pacemaker Type 2 Diabetes HTN Dyslipidemia Recent hospitalization for COVID-19, was discharged to a nursing facility. Acute Kidney Injury - sCr increased 1.31 today PLAN: Pulmonary is following patient is on empiric IV Rocephin Patient's respiratory status and repeat chest x-ray today, appears more pulmonary then congestive heart failure at this time. With increased creatinine Will transition to PO Lasix today Continue to monitor renal function and electrolytes Continue carvedilol 6.25mg BID, aspirin, plavix and statin Patient was on losartan 50mg daily, however, has been held due to hyperkalemia and renal function, Will continue hydralazine 25mg BID. Will continue to monitor BMP I/Os, daily weights Further recommendations based on clinical course. Nurse practitioner note has been reviewed by physician. Signing provider agrees with the documented findings, assessment, and plan of care. Objective - Vital Signs Vital signs: Vital Signs Temp 97.4 F L 07/03/20 12:32 Pulse 62 07/03/20 12:32 Resp 17 07/03/20 12:32 BP 120/67 07/03/20 12:32 Pulse Ox 99 07/03/20 12:32 Intake & Output 07/02/20 07/03/20 07/03/20 18:59 06:59 18:59 Intake Total 480 240 Output Total 825 1880 Balance -345 -1640 Weight 138.346 kg 145 kg Intake: Oral 480 240 Output: Urine 825 1880 Other: Voiding Method Urinal Urinal Urinal # Voids 1 - Labs CBC & Chem 7: 07/03/20 08:37 07/03/20 08:37 Labs: Abnormal Lab Results - Last 24 Hours (Table) 07/02/20 07/02/20 07/03/20 Range/Units 16:52 20:01 06:15 RBC (4.30-5.90) m/uL Hgb (13.0-17.5) gm/dL Hct (39.0-53.0) % MCV (80.0-100.0) fL MCHC (31.0-37.0) g/dL RDW (11.5-15.5) % Monocytes # (Manual) (0-1.0) k/uL Carbon Dioxide (22-30) mmol/L BUN (9-20) mg/dL Creatinine (0.66-1.25) mg/dL Glucose (74-99) mg/dL POC Glucose (mg/dL) 231 H 288 H 212 H (75-99) mg/dL 07/03/20 07/03/20 07/03/20 Range/Units 08:37 08:37 11:44 RBC 2.57 L (4.30-5.90) m/uL Hgb 7.8 L (13.0-17.5) gm/dL Hct 26.2 L (39.0-53.0) % MCV 101.9 H (80.0-100.0) fL MCHC 29.6 L (31.0-37.0) g/dL RDW 17.1 H (11.5-15.5) % Monocytes # (Manual) 1.16 H (0-1.0) k/uL Carbon Dioxide 38 H (22-30) mmol/L BUN 34 H (9-20) mg/dL Creatinine 1.31 H (0.66-1.25) mg/dL Glucose 180 H (74-99) mg/dL POC Glucose (mg/dL) 210 H (75-99) mg/dL
--- NOTE | 2020-07-03 13:48 | P.PN ---
Subjective Progress Note Date: 07/03/20 Principal diagnosis: Shortness of breath. This is a 80-year-old white male patient who was recently hospitalized from 05/20/2020 through 06/12/2020 for COVID-19 pneumonia, and patient had a prolonged hospitalization course, with the severe hypoxemic respiratory failure related to COVID-19 pneumonia. Patient was treated with steroids, he received 2 doses of Tocilizumab while in the hospital, and was discharged to a rehabilitation facility the group home home. His hospitalization was complicated by lower GI bleeding and acute kidney injury. The GI bleeding resolved on its own. He is currently not on any anticoagulation. His past medical history is positive for hypertension, type 2 diabetes mellitus and his sugars have been poorly controlled related to systemic steroids, patient is a former smoker. Patient was brought into the emergency department on 06/30/2020 at 2100 by EMS for evaluation of worsening shortness of breath and fever. he is very hard of hearing, he is a poor historian, but chest x-ray in the emergency department showed pulmonary interstitial and airspace edema, left basilar pacemaker in place. Denies any coughing, denies any chest congestion or phlegm production. Her low-grade fever in the emergency department with a temp of 100.1F. On 5 L of oxygen pulse ox is 93%. His blood work showed normal white count of 7.9, hemoglobin is 8.3, his platelet count is 281, d-dimer is 1.83, INR 0.9, sodium is 139, potassium is 5.4, chloride is 102, CO2 is 26, B1 is 24, creatinine 0.9, lactic acid was 1.2, LDH was 1196, patient had troponin elevation of 0.110, 0.122, and 0.117, his proBNP came back elevated at 8220, and pro-calcitonin level is pending right now, patient was retested for COVID-19 and was found to be negative, RSV, influenza A and B PCR were negative. Progress note dated 07/02/2020. 80-year-old male, admitted with a diagnosis of acute on chronic shortness of breath, and respiratory failure, secondary to CHF exacerbation. The patient also has a history of recent COVID 19 pneumonia, emphysema [facility]. Other medical problems including acute coronary syndrome, ischemic cardiomyopathy, severe pulmonary hypertension, obesity, diabetes, anemia, and general medical ability. The patient's currently on 5 L nasal cannula. Saturations are 9092%. He is not receiving any IV fluids. He is getting Rocephin. The patient is lying on his right side. He's extremely deaf. He apparently is telling his nurse all he wants to do his diet. He seems not very motivated to get better. Labs today include a white count 7, hemoglobin 8.4, hematocrit 27.8, and platelet count 303,000. D-dimer from 2 days ago was 1.83. Sodium, potassium, chlorides are all normal. CO2 is 37, anion gap is 1, BUN is 29 with a creatinine of 1.04. Troponins were 0.110, 0.122, and 0.117. N- terminal proBNP was 8220. Pro-calcitonin was 0.13. Progress note dated 07/03/2020. 80-year-old male, seen 2 days ago in consultation. The patient was hospitalized from May 20 through June 12 for COVID 19 pneumonia. The [facility] a [facility]. The patient came back into the hospital on the , with increasing shortness of breath. The patient has a history of acute coronary syndrome, ischemic cardiomyopathy, severe pulmonary hypertension, diabetes, anemia, and general medical debility. Currently, the patient is on BiPAP, with settings of IPAP 12, EPAP 6, and 60%. Saturations are 97%. The shawn aldrich is not receiving any IV fluids. He is currently sleeping and appears to be in no distress. He is nearly flat on his back. Current labs include a white count 6.8, hemoglobin 7.8, hematocrit 26.2, and platelet count 378,000. Sodium 140, potassium 4.6, chloride 99, CO2 38, anion gap 3, BUN 34, creatinine 1.31. Chest x-ray from the shows diffuse bilateral airspace disease. Objective - Vital Signs Vital signs: Vital Signs Temp 97.4 F L 07/03/20 12:32 Pulse 62 07/03/20 12:32 Resp 17 07/03/20 12:32 BP 120/67 07/03/20 12:32 Pulse Ox 99 07/03/20 12:32 Intake & Output 07/02/20 07/03/20 07/03/20 18:59 06:59 18:59 Intake Total 480 240 Output Total 825 1880 Balance -345 -1640 Weight 138.346 kg 145 kg Intake: Oral 480 240 Output: Urine 825 1880 Other: Voiding Method Urinal Urinal Urinal # Voids 1 - Exam No acute distress, sleeping, currently on BiPAP, with saturations of 97%. HEENT examination is grossly unremarkable. Neck supple. Full range of motion. No adenopathy thyromegaly or neck vein distention. Cardiovascular examination reveals regular rhythm rate. S1-S2 normal. No S3 or S4. No discernible murmur noted. Heart rate is 62 bpm. Lungs reveal bibasilar crackles. No rhonchi or wheezes. Breath sounds equal bilaterally. Abdomen soft bowel sounds are heard. No masses or tenderness. Extremities are intact. No cyanosis or clubbing. There is peripheral edema. Skin is without rash or lesion. Neurologic examination is brief but nonfocal. - Labs CBC & Chem 7: 07/03/20 08:37 07/03/20 08:37 Labs: Abnormal Lab Results - Last 24 Hours (Table) 07/02/20 07/02/20 07/03/20 Range/Units 16:52 20:01 06:15 RBC (4.30-5.90) m/uL Hgb (13.0-17.5) gm/dL Hct (39.0-53.0) % MCV (80.0-100.0) fL MCHC (31.0-37.0) g/dL RDW (11.5-15.5) % Monocytes # (Manual) (0-1.0) k/uL Carbon Dioxide (22-30) mmol/L BUN (9-20) mg/dL Creatinine (0.66-1.25) mg/dL Glucose (74-99) mg/dL POC Glucose (mg/dL) 231 H 288 H 212 H (75-99) mg/dL 07/03/20 07/03/20 07/03/20 Range/Units 08:37 08:37 11:44 RBC 2.57 L (4.30-5.90) m/uL Hgb 7.8 L (13.0-17.5) gm/dL Hct 26.2 L (39.0-53.0) % MCV 101.9 H (80.0-100.0) fL MCHC 29.6 L (31.0-37.0) g/dL RDW 17.1 H (11.5-15.5) % Monocytes # (Manual) 1.16 H (0-1.0) k/uL Carbon Dioxide 38 H (22-30) mmol/L BUN 34 H (9-20) mg/dL Creatinine 1.31 H (0.66-1.25) mg/dL Glucose 180 H (74-99) mg/dL POC Glucose (mg/dL) 210 H (75-99) mg/dL Assessment and Plan Assessment: Acute on chronic shortness breath, with hypoxemic respiratory failure, secondary to CHF exacerbation, with systolic dysfunction. Recent hospitalization for COVID 19 pneumonia, status post discharged to a nursing facility. Rule out non-ST segment elevation myocardial infarction. Coronary artery disease, with previous stenting. History of ischemic cardiomyopathy, status post AICD. History of moderate to severe pulmonary hypertension. Type 2 diabetes mellitus. History of chronic anemia. Previous history of tobacco use. General medical debility. Plan: Plan dated 07/02/2020. The patient will continue with Lasix therapy. In addition, I try to motivate him to get better. He is lying on his side, stating that he wishes to , and I told him that he wants to get better, he needs to be more motivated. Medications, ALLERGIES, problem list, and x-ray reports and radiographic picture are all reviewed. Current microbiology is negative are pending. Currently, the patient's on vitamin C, Lovenox, zinc, and usual medications. No additional recommendations are made. Prognosis is guarded. Plan dated 07/03/2020. The patient's N-terminal proBNP was 8220. Certainly some of his abnormalities on chest x-ray could in fact, be fluid overload. The patient clinically looks reasonably well on BiPAP, with settings of IPAP 12, EPAP 6, and 60%. Satur ations are 97%. He's not receiving any IV fluids. The patient's on vitamin C, Lovenox, zinc, and his usual medications. We'll continue to follow. He's been seen by cardiology. His pro-calcitonin level is only 0.13. I will stop the antibiotics. Additional recommendations and suggestions are forthcoming. Time with Patient: Less than 30
[2020-07-03] MEDS: FUROSEMIDE 40 MG TAB PO SCH (16:20)
[2020-07-03 16:50] LABS: Glucose,Whole Blood 176 mg/dL (75-99)
[2020-07-03 19:53] LABS: Glucose,Whole Blood 179 mg/dL (75-99)
[2020-07-03] MEDS: ATORVASTATIN 80 MG TAB PO SCH (19:53)
[2020-07-04 06:25] LABS: Glucose,Whole Blood 143 mg/dL (75-99)
[2020-07-04] MEDS: carvediloL 6.25 MG TAB PO SCH ×2 (06:28→16:03)
[2020-07-04 08:24] LABS: Calcium 8.4 mg/dL (8.4-10.2); Potassium 4.9 mmol/L (3.5-5.1)
[2020-07-04] MEDS: CLOPIDOGREL 75 MG TAB PO SCH (09:09)
[2020-07-04] MEDS: ENOXAPARIN 40 MG/0.4 ML SYRINGE SQ SCH (09:09)
[2020-07-04] MEDS: ASPIRIN 81 MG PO SCH (09:09)
[2020-07-04] MEDS: FERROUS SULFATE 325 MG TAB PO SCH (09:09)
[2020-07-04] MEDS: ZINC SULFATE 220 MG CAP PO SCH (09:09)
[2020-07-04] MEDS: FAMOTIDINE 20 MG TAB PO SCH (09:10)
[2020-07-04] MEDS: glipiZIDE 10 MG TAB PO SCH ×2 (09:10→20:41)
[2020-07-04] MEDS: hydrALAZINE HCL 25 MG TAB PO SCH ×2 (09:10→20:41)
[2020-07-04] MEDS: ASCORBIC ACID 500 MG TAB PO SCH (09:10)
[2020-07-04] MEDS: FUROSEMIDE 40 MG TAB PO SCH ×2 (09:10→16:03)
[2020-07-04] MEDS: ISOSORBIDE MONONITRATE ER 30 MG TAB.ER.24H PO SCH (09:10)
[2020-07-04] MEDS: TRIAMCINOLONE ACET 0.1% OINTMENT 15 GM TUBE TOPICAL SCH ×3 (09:27→20:41)
[2020-07-04 12:16] LABS: Glucose,Whole Blood 300 mg/dL (75-99)
[2020-07-04] MEDS: INSULIN ASPART (NovoLOG) 100 UNIT/ML VIAL SQ SCH ×3 (12:16→20:41)
--- NOTE | 2020-07-04 12:39 | P.PN ---
Subjective Progress Note Date: 07/04/20 Principal diagnosis: Shortness of breath. This is a 80-year-old white male patient who was recently hospitalized from 05/20/2020 through 06/12/2020 for COVID-19 pneumonia, and patient had a prolonged hospitalization course, with the severe hypoxemic respiratory failure related to COVID-19 pneumonia. Patient was treated with steroids, he received 2 doses of Tocilizumab while in the hospital, and was discharged to a rehabilitation facility the snf home. His hospitalization was complicated by lower GI bleeding and acute kidney injury. The GI bleeding resolved on its own. He is currently not on any anticoagulation. His past medical history is positive for hypertension, type 2 diabetes mellitus and his sugars have been poorly controlled related to systemic steroids, patient is a former smoker. Patient was brought into the emergency department on 06/30/2020 at 2100 by EMS for evaluation of worsening shortness of breath and fever. he is very hard of hearing, he is a poor historian, but chest x-ray in the emergency department showed pulmonary interstitial and airspace edema, left basilar pacemaker in place. Denies any coughing, denies any chest congestion or phlegm production. Her low-grade fever in the emergency department with a temp of 100.1F. On 5 L of oxygen pulse ox is 93%. His blood work showed normal white count of 7.9, hemoglobin is 8.3, his platelet count is 281, d-dimer is 1.83, INR 0.9, sodium is 139, potassium is 5.4, chloride is 102, CO2 is 26, B1 is 24, creatinine 0.9, lactic acid was 1.2, LDH was 1196, patient had troponin elevation of 0.110, 0.122, and 0.117, his proBNP came back elevated at 8220, and pro-calcitonin level is pending right now, patient was retested for COVID-19 and was found to be negative, RSV, influenza A and B PCR were negative. Progress note dated 07/02/2020. 80-year-old male, admitted with a diagnosis of acute on chronic shortness of breath, and respiratory failure, secondary to CHF exacerbation. The patient also has a history of recent COVID 19 pneumonia, emphysema discharged to a [facility] home. Other medical problems including acute coronary syndrome, ischemic cardiomyopathy, severe pulmonary hypertension, obesity, diabetes, anemia, and general medical ability. The patient's currently on 5 L nasal cannula. Saturations are 9092%. He is not receiving any IV fluids. He is getting Rocephin. The patient is lying on his right side. He's extremely deaf. He apparently is telling his nurse all he wants to do his diet. He seems not very motivated to get better. Labs today include a white count 7, hemoglobin 8.4, hematocrit 27.8, and platelet count 303,000. D-dimer from 2 days ago was 1.83. Sodium, potassium, chlorides are all normal. CO2 is 37, anion gap is 1, BUN is 29 with a creatinine of 1.04. Troponins were 0.110, 0.122, and 0.117. N- terminal proBNP was 8220. Pro-calcitonin was 0.13. Progress note dated 07/03/2020. 80-year-old male, seen 2 days ago in consultation. The patient was hospitalized from May 20 through June 12 for COVID 19 pneumonia. The patient was discharged to a halfway. The patient came back into the hospital on the , with increasing shortness of breath. The patient has a history of acute coronary syndrome, ischemic cardiomyopathy, severe pulmonary hypertension, diabetes, anemia, and general medical debility. Currently, the patient is on BiPAP, with settings of IPAP 12, EPAP 6, and 60%. Saturations are 97%. The pa elinor is not receiving any IV fluids. He is currently sleeping and appears to be in no distress. He is nearly flat on his back. Current labs include a white count 6.8, hemoglobin 7.8, hematocrit 26.2, and platelet count 378,000. Sodium 140, potassium 4.6, chloride 99, CO2 38, anion gap 3, BUN 34, creatinine 1.31. Chest x-ray from the shows diffuse bilateral airspace disease. Progress note dated 07/04/2020. 80-year-old male, seen a couple days ago in consultation. The patient remains on 15 L high flow O2. The patient is not receiving any IV fluids. The patient is a DO NOT RESUSCITATE. The patient openly states that he wants to . He is going to speak to his son about that later today. He has a history of acute coronary syndrome, ischemic cardiomyopathy, pulmonary hypertension, diabetes, anemia, and general medical debility. The patient was hospitalized from May 20 through June 12 for COVID 19 pneumonia. Labs today include a sodium 139, potassium 4.9, chlorides 97, CO2 40, anion gap 2, BUN 32, creatinine 1.08. Objective - Vital Signs Vital signs: Vital Signs Temp 97.5 F L 07/04/20 07:39 Pulse 71 07/04/20 10:13 Resp 20 07/04/20 10:13 BP 128/74 07/04/20 07:39 Pulse Ox 96 07/04/20 07:39 Intake & Output 07/03/20 07/04/20 07/04/20 18:59 06:59 18:59 Intake Total 50 195 Output Total 275 1325 Balance -225 -1130 Weight 144 kg Intake: Intake, IV Titration 50 Amount cefTRIAXone 1 gm In 50 Sodium Chloride 0.9% 50 ml @ 100 mls/hr IVPB Q24HR [facility] Rx#:[id number] Oral 195 Output: Urine 275 1325 Other: Voiding Method Urinal Urinal Urinal # Voids 1 1 - Exam No acute distress, sleeping, currently on 15 L high flow oxygen, with s aturations of 96 %. HEENT examination is grossly unremarkable. Extremely hard of hearing. Neck supple. Full range of motion. No adenopathy thyromegaly or neck vein distention. Cardiovascular examination reveals regular rhythm rate. S1-S2 normal. No S3 or S4. No discernible murmur noted. Heart rate is 71 bpm. Lungs reveal bibasilar crackles. No rhonchi or wheezes. Breath sounds equal b ilaterally. Abdomen soft bowel sounds are heard. No masses or tenderness. Extremities are intact. No cyanosis or clubbing. There is peripheral edema. Skin is without rash or lesion. Neurologic examination is brief but nonfocal. - Labs CBC & Chem 7: 07/03/20 08:37 07/04/20 07:46 Labs: Abnormal Lab Results - Last 24 Hours (Table) 07/03/20 07/03/20 07/04/20 Range/Units 16:47 19:52 06:23 Chloride (98-107) mmol/L Carbon Dioxide (22-30) mmol/L BUN (9-20) mg/dL Glucose (74-99) mg/dL POC Glucose (mg/dL) 176 H 179 H 143 H (75-99) mg/dL 07/04/20 07/04/20 Range/Units 07:46 12:00 Chloride 97 L (98-107) mmol/L Carbon Dioxide 40 H (22-30) mmol/L BUN 32 H (9-20) mg/dL Glucose 143 H (74-99) mg/dL POC Glucose (mg/dL) 300 H (75-99) mg/dL Assessment and Plan Assessment: Acute on chronic shortness breath, with hypoxemic respiratory failure, secondary to CHF exacerbation, with systolic dysfunction. Recent hospitalization for COVID 19 pneumonia, status post discharged to a [facility] facility. Rule out non-ST segment elevation myocardial infarction. Coronary artery disease, with previous stenting. History of ischemic cardiomyopathy, status post AICD. History of moderate to severe pulmonary hypertension. Type 2 diabetes mellitus. History of chronic anemia. Previous history of tobacco use. General medical debility. Plan: Plan dated 07/02/2020. The patient will continue with Lasix therapy. In addition, I try to motivate him to get better. He is lying on his side, stating that he wishes to , and I told him that he wants to get better, he needs to be more motivated. Medications, ALLERGIES, problem list, and x-ray reports and radiographic picture are all reviewed. Current microbiology is negative are pending. Currently, the patient's on vitamin C, Lovenox, zinc, and usual medications. No additional recommendations are made. Prognosis is guarded. Plan dated 07/03/2020. The patient's N-terminal proBNP was 8220. Certainly some of his abnormalities on chest x-ray could in fact, be fluid overload. The patient clinically looks reasonably well on BiPAP, with settings of IPAP 12, EPAP 6, and 60%. Saturations are 97%. He's not receiving any IV fluids. The patient's on vitamin C, Lovenox, zinc, and his usual medications. We'll continue to follow. He's been seen by cardiology. His pro-calcitonin level is only 0.13. I will st op the antibiotics. Additional recommendations and suggestions are forthcoming. Plan dated 07/04/2020. The patient continues to verbalize that he wants to . The patient is a DO NOT RESUSCITATE. He is going to speak to his son today. I think would be very appropriate to get a palliative care consult hospice consult on this patient. The patient's on high flow nasal cannula at 15 L. He is not receiving any IV fluids. His prognosis is very poor. Additional recommendations and suggestions are forthcoming. The patient remains on vitamin C, Lovenox, zinc, and other usual medications. Time with Patient: Less than 30
--- NOTE | 2020-07-04 15:11 | P.PN ---
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 Follows in the office with Dr. Stephenson. We are being consulted for congestive heart failure and elevated troponin. Patient presents to the emergency department with shortness of breath and fever. Patient is a poor historian, very hard of hearing. Patient recently hospitalized on 05/20/20- 06/12/20 with COVID-19 pneumonia. Patient denies chest pain, palpitations, syncope or near syncope. DIAGNOSTICS EKG: sinus rhythm with first degree AV block, Twave inversions, leads I, aVL, ST depression in leads V2, V3. Echo 04/2020 in the office- EF 35-40%, mild TR, mild MR, grade 1 diastolic dysfunction Chest x-ray- pulmonary edema is slightly worse than last exam Laboratory data reviewed, Troponin 0.11, 0.12, 0.11, BNP 8,220, d-dimer 1.83, Viral PCR negative, Covid-19 negative 07/02/20: 2-D echo obtained revealed EF between 40-45%, with hypokinesis, mild MR, mild TR, mild to moderate pulmonary hypertension, no pericardial effusion. 07/04/20: Patient seen and examined at bedside, no acute distress. He states his breathing has improved however continues to be short of breath with ambulation. Overnight patient requiring increased oxygen requirements up to 15 L high flow nasal cannula. Patient requiring BiPAP last night. Repeat chest x-ray shows diffuse bilateral infiltrates, heart size is stable. Patient's laboratory data reviewed, hemoglobin 7.8 (8.4 yesterday), sodium 140, potassium 4.6, serum creatinine increased 1.31 (1.04 yesterday), magnesium 2.1. 07/04/20: Patient is maintained on 15L high flow nasal cannula and still requiring BiPAP. Patient does seem depressed about his current health state. Blood pressure 120/74, heart rate 71, 96% on BiPAP sodium 139, potassium 4.9, acute kidney injury improving with serum creatinine 1.08, magnesium 2.0. Patient is currently being maintained on aspirin 81 mg daily, Coreg 6.25 mg twice a day, Plavix 75 mg daily, Lasix 40 mg twice a day, Imdur 30 mg daily. Patient continues to have good urine output 1.6L out in the past 24 hours. Also with 1Kg weight loss today. PHYSICAL EXAM: VITAL SIGNS: Reviewed GENERAL: No acute distress. Appears debilitated. HEENT: Head is normocephalic. No JVD or thyromegaly LUNGS: Respirations even and unlabored. Lungs bibasilar crackles HEART: Regular rate and rhythm. S1 and S2 heard. ABDOMEN: Soft. Nondistended. Nontender. EXTREMITIES: 3+ pitting Bilateral pedal edema. NEUROLOGIC: Awake and alert. Oriented x 3. ASSESSMENT: Acute Hypoxic Respiratory failure - Patient was started on rocephin for possible pneumonia Coronary artery disease s/p PCI mid RCA, proximal RCA in 07/2019, Acute on chronic heart failure with reduced ejection fraction Mildly elevated troponin- not likely acute coronary syndrome, troponin not increasing, patient denies chest discomfort. most likely realted to patient's CKD and hypoxia Ischemic cardiomyopathy Permanent cardiac pacemaker Type 2 Diabetes HTN Dyslipidemia Recent hospitalization for COVID-19, was discharged to a nursing facility. Acute Kidney Injury - improving 1.08 today PLAN: No changes today Switched to PO Lasix- will adjust as needed Pulmonary is following patient is on empiric IV Rocephin Patient's respiratory status appears more pulmonary then congestive heart failure at this time. Pulmonary is following Continue to monitor renal function and electrolytes Continue carvedilol 6.25mg BID, aspirin, plavix and statin Patient was on losartan 50mg daily, however, has been held due to hyperkalemia and renal function, Will continue hydralazine 25mg BID. Will continue to monitor BMP I/Os, daily weights Further recommendations based on clinical course. Prognosis is guarded Nurse practitioner note has been reviewed by physician. Signing provider agrees with the documented findings, assessment, and plan of care. Objective - Vital Signs Vital signs: Vital Signs Temp 98.0 F 07/04/20 12:58 Pulse 74 07/04/20 13:52 Resp 20 07/04/20 13:52 BP 138/67 07/04/20 12:58 Pulse Ox 97 07/04/20 12:58 Intake & Output 07/03/20 07/04/20 07/04/20 18:59 06:59 18:59 Intake Total 50 195 230 Output Total 275 1325 550 Balance -175 -0232 -491 Weight 144 kg Intake: Intake, IV Titration 50 Amount cefTRIAXone 1 gm In 50 Sodium Chloride 0.9% 50 ml @ 100 mls/hr IVPB Q24HR [facility] Rx#:[id number] Oral 195 230 Output: Urine 275 1325 550 Other: Voiding Method Urinal Urinal Urinal # Voids 1 1 1 - Labs CBC & Chem 7: 07/03/20 08:37 07/04/20 07:46 Labs: Abnormal Lab Results - Last 24 Hours (Table) 07/03/20 07/03/20 07/04/20 Range/Units 16:47 19:52 06:23 Chloride (98-107) mmol/L Carbon Dioxide (22-30) mmol/L BUN (9-20) mg/dL Glucose (74-99) mg/dL POC Glucose (mg/dL) 176 H 179 H 143 H (75-99) mg/dL 07/04/20 07/04/20 Range/Units 07:46 12:00 Chloride 97 L (98-107) mmol/L Carbon Dioxide 40 H (22-30) mmol/L BUN 32 H (9-20) mg/dL Glucose 143 H (74-99) mg/dL POC Glucose (mg/dL) 300 H (75-99) mg/dL
--- NOTE | 2020-07-04 15:56 | P.PN ---
Subjective This is a pleasant 80 years old male who was recently discharged from the hospital 05/20-06/12 for bilateral covid Pneumonia. He was discharge to rehab that time on 4 L/m via nasal cannula. His hospital course was complicated by lower GI bleed and GI team, thought local humerus contributing, and the recommended conservative therapy.Other chronic medical problems including diabetes mellitus, hypertension This time he was sent to ER from [facility] for increasing dyspnea his saturation were 89-93% on 5 L oxygen via nasal cannula, rest of vital signs stable and patient had fever of 100.1 Patient states that he has dyspnea for a few days but he could not specify however he denies chest pain. No coughing. Fever was documented in the emergency room. No GI or urinary symptoms. WBC is within the reference range 7.9K, hemoglobin 8.3, compared to 10.0 last time. Platelets are normal. INR is 0.9 and d-dimer 1.8. Creatinine is normal 0.9, GFR is 73, potassium is 5.4, liver enzymes are not remarkable Lactate dehydrogenase elevated 1196 as well as C-reactive protein 14.3. Troponin is elevated 0.11, 0.12, 0.11 ProBNP is 8220 Coronal virus not detected, influenza virus not detected, SV PCR not detected Chest x-ray: Pulmonary edema slightly worse than last time with evidence of congestive heart failure or RVS Recent echo on 07/22/19: Ejection fraction 45-50% with wall hypokinesia In the emergency room patient was started on ceftriaxone and Lasix 40 mg twice daily. Ceftriaxone was continued by director power 07/02/2020 Patient dyspnea is improving and today he was sitting at bedside however he still gets short of breath with exertion. He remains on 5 L of oxygen via nasal cannula. On exam he still have bilateral basal and mid plunk amputation. Patient is hemodynamically stable, labs reviewed and hemoglobin is stable. He remains on ceftriaxone as he has fever on admission and pneumonia is suspected Also he remains on Lasix 40 mg IV twice daily. Aspirin is admitted today to have his Plavix which is home medication per cardiology team recommendation Triamcinolone 0.1% topical is admitted to both legs for dermatitis with scaling 07/03/2020 Patient oxygen requirement increased last night to 15 L/m to keep oxygen saturation in the low 90s, he was slightly placed on BiPAP overnight and this morning, patient looks tired while as on BiPAP. With setting of 12/6 and FiO2 of 60%. Labs from today are still pending He had fever on admission and subsided. Repeat chest x-ray today showing bilateral infiltrates, similar to yesterday. Pulmonary and cardiology teams on the case Echocardiogram showed ejection fraction of 40-45% with moderate LVH and hypokinesia. patient remains on Lasix 40 mg twice daily, and ceftriaxone for fever on admission. Also he is on Plavix at home while aspirin 81 mg is added yesterday. coronavirus was not detected on admission 07/04/2020 Patient still significantly hypoxic, this morning was still on BiPAP and later on for the day he was on 15 L of oxygen per minute. However he was able to sit upright in chair. And that he is hemodynamically stable. His creatinine is better today at 1.0, because of that his Lasix was increased to twice daily. Continue with fluid restriction about 1000 per day. He remains on hydralazine, as well as aspirin and Plavix. Triamcinolone. Antibiotics were discontinued as per gastroscopy and was low by pulmonary team Pulmonary team also recommending palliative care consults, we will discuss with family and patient. Objective - Vital Signs Vital signs: Vital Signs Temp 98.0 F 07/04/20 12:58 Pulse 74 07/04/20 13:52 Resp 20 07/04/20 13:52 BP 138/67 07/04/20 12:58 Pulse Ox 97 07/04/20 12:58 Intake & Output 07/03/20 07/04/20 07/04/20 18:59 06:59 18:59 Intake Total 50 195 230 Output Total 275 1325 550 Balance -225 -1130 -320 Weight 144 kg Intake: Intake, IV Titration 50 Amount cefTRIAXone 1 gm In 50 Sodium Chloride 0.9% 50 ml @ 100 mls/hr IVPB Q24HR [facility] Rx#:[id number] Oral 195 230 Output: Urine 275 1325 550 Other: Voiding Method Urinal Urinal Urinal # Voids 1 1 1 - Exam -GENERAL: The patient is alert and oriented x3, not in any acute distress. Obese HEENT: Pupils are round and equally reacting to light. EOMI. No scleral icterus. No conjunctival pallor. Normocephalic, atraumatic. No pharyngeal erythema. No thyromegaly. CARDIOVASCULAR: S1 and S2 present. No murmurs, rubs, or gallops. -PULMONARY: Chest is clear to auscultation, no bilateral basal crepitation. No wheezing ABDOMEN: Soft, nontender, nondistended, normoactive bowel sounds. No palpable organomegaly. MUSCULOSKELETAL: No joint swelling or deformity. -EXTREMITIES: No cyanosis, clubbing, or pedal edema. Bilateral leg redness and scaling from dermatitis NEUROLOGICAL: Gross neurological examination did not reveal any focal deficits. SKIN: No rashes. no petechiae. - Labs CBC & Chem 7: 07/03/20 08:37 07/04/20 07:46 Labs: Abnormal Lab Results - Last 24 Hours (Table) 07/03/20 07/03/20 07/04/20 Range/Units 16:47 19:52 06:23 Chloride (98-107) mmol/L Carbon Dioxide (22-30) mmol/L BUN (9-20) mg/dL Glucose (74-99) mg/dL POC Glucose (mg/dL) 176 H 179 H 143 H (75-99) mg/dL 07/04/20 07/04/20 Range/Units 07:46 12:00 Chloride 97 L (98-107) mmol/L Carbon Dioxide 40 H (22-30) mmol/L BUN 32 H (9-20) mg/dL Glucose 143 H (74-99) mg/dL POC Glucose (mg/dL) 300 H (75-99) mg/dL Assessment and Plan Assessment: Acute pulmonary edema with acute on chronic CHF, combined diastolic and systolic dysfunction is suspected with ejection fraction 45-50% Severe Acute hypoxic respiratory failure Elevated troponin, could be due to renal disease versus coronary artery disease Fever on admission, possible due to pneumonia Bilateral leg dermatitis Recent covid infection (hospitalized 05/20-06/12) Chronic kidney disease stage III Plan: This is a pleasant 80 years old male who presents with systolic and diastolic CHF, . Continue with Lasix, BiPAP as needed, otherwise high flow oxygen.Cardiology consult. Pulmonary team were already consulted. Continue with Plavix. Aspirin added. Start triamcinolone ointment. Pulmonary team r ecommended palliative consults, we will discuss with familyontinue with symptomatic treatment. Resume home medication. Monitor lytes and vitals. DVT and GI prophylaxis. Further recommendations depends on the clinical course of the patient DVT prophylaxis: Subcutaneous Lovenox GI Prophylaxis: Pepcid Prognosis is guarded
[2020-07-04 17:05] LABS: Glucose,Whole Blood 303 mg/dL (75-99)
[2020-07-04 20:08] LABS: Glucose,Whole Blood 240 mg/dL (75-99)
[2020-07-04] MEDS: ATORVASTATIN 80 MG TAB PO SCH (20:41)
[2020-07-05 06:07] LABS: Glucose,Whole Blood 195 mg/dL (75-99)
[2020-07-05] MEDS: INSULIN ASPART (NovoLOG) 100 UNIT/ML VIAL SQ SCH ×4 (06:32→20:33)
[2020-07-05] MEDS: carvediloL 6.25 MG TAB PO SCH ×2 (06:32→16:41)
[2020-07-05 08:24] LABS: Anisocytosis Slight; Basophils # (A) 0.1 k/uL (0-0.2); Basophils % (A) 1 %; Eosinophils # (A) 0.2 k/uL (0-0.7); Eosinophils % (A) 2 %; HCT 27.9 % (39.0-53.0); HGB 8.4 gm/dL (13.0-17.5); Hypochromasia Marked; Lymphocytes # (A) 1.5 k/uL (1.0-4.8); Lymphocytes % (A) 22 %; MCH 30.6 pg (25.0-35.0); MCHC 30.1 g/dL (31.0-37.0); MCV 101.5 fL (80.0-100.0); Macrocytosis Moderate; Mean Platelet Volume 7.8; Monocytes # (A) 0.9 k/uL (0-1.0); Monocytes % (A) 13 %; Neutrophils # (A) 4.1 k/uL (1.3-7.7); Neutrophils % (A) 58 %; Platelet Count 420 k/uL (150-450); RBC 2.74 m/uL (4.30-5.90); RDW 17.3 % (11.5-15.5)
[2020-07-05 08:40] LABS: Calcium 8.3 mg/dL (8.4-10.2); Potassium 4.2 mmol/L (3.5-5.1)
[2020-07-05] MEDS: ZINC SULFATE 220 MG CAP PO SCH (10:01)
[2020-07-05] MEDS: ENOXAPARIN 40 MG/0.4 ML SYRINGE SQ SCH (10:01)
[2020-07-05] MEDS: hydrALAZINE HCL 25 MG TAB PO SCH ×2 (10:01→20:33)
[2020-07-05] MEDS: FUROSEMIDE 40 MG TAB PO SCH ×2 (10:02→16:40)
[2020-07-05] MEDS: ISOSORBIDE MONONITRATE ER 30 MG TAB.ER.24H PO SCH (10:02)
[2020-07-05] MEDS: glipiZIDE 10 MG TAB PO SCH ×2 (10:02→20:33)
[2020-07-05] MEDS: ASCORBIC ACID 500 MG TAB PO SCH (10:02)
[2020-07-05] MEDS: FAMOTIDINE 20 MG TAB PO SCH (10:02)
[2020-07-05] MEDS: ASPIRIN 81 MG PO SCH (10:02)
[2020-07-05] MEDS: CLOPIDOGREL 75 MG TAB PO SCH (10:02)
[2020-07-05] MEDS: FERROUS SULFATE 325 MG TAB PO SCH (10:02)
[2020-07-05] MEDS: TRIAMCINOLONE ACET 0.1% OINTMENT 15 GM TUBE TOPICAL SCH ×3 (10:03→20:33)
[2020-07-05 11:55] LABS: Glucose,Whole Blood 173 mg/dL (75-99)
--- NOTE | 2020-07-05 13:03 | P.PN ---
Subjective Progress Note Date: 07/05/20 Principal diagnosis: Shortness of breath. This is a 80-year-old white male patient who was recently hospitalized from 05/20/2020 through 06/12/2020 for COVID-19 pneumonia, and patient had a prolonged hospitalization course, with the severe hypoxemic respiratory failure related to COVID-19 pneumonia. Patient was treated with steroids, he received 2 doses of Tocilizumab while in the hospital, and was discharged to a rehabilitation facility [facility]. His hospitalization was complicated by lower GI bleeding and acute kidney injury. The GI bleeding resolved on its own. He is currently not on any anticoagulation. His past medical history is positive for hypertension, type 2 diabetes mellitus and his sugars have been poorly controlled related to systemic steroids, patient is a former smoker. Patient was brought into the emergency department on 06/30/2020 at 2100 by EMS for evaluation of worsening shortness of breath and fever. he is very hard of hearing, he is a poor historian, but chest x-ray in the emergency department showed pulmonary interstitial and airspace edema, left basilar pacemaker in place. Denies any coughing, denies any chest congestion or phlegm production. Her low-grade fever in the emergency department with a temp of 100.1F. On 5 L of oxygen pulse ox is 93%. His blood work showed normal white count of 7.9, hemoglobin is 8.3, his platelet count is 281, d-dimer is 1.83, INR 0.9, sodium is 139, potassium is 5.4, chloride is 102, CO2 is 26, B1 is 24, creatinine 0.9, lactic acid was 1.2, LDH was 1196, patient had troponin elevation of 0.110, 0.122, and 0.117, his proBNP came back elevated at 8220, and pro-calcitonin level is pending right now, patient was retested for COVID-19 and was found to be negative, RSV, influenza A and B PCR were negative. Progress note dated 07/02/2020. 80-year-old male, admitted with a diagnosis of acute on chronic shortness of breath, and respiratory failure, secondary to CHF exacerbation. The patient also has a history of recent COVID 19 pneumonia, emphysema discharged to a [facility] home. Other medical problems including acute coronary syndrome, ischemic cardiomyopathy, severe pulmonary hypertension, obesity, diabetes, anemia, and general medical ability. The patient's currently on 5 L nasal cannula. Saturations are 9092%. He is not receiving any IV fluids. He is getting Rocephin. The patient is lying on his right side. He's extremely deaf. He apparently is telling his nurse all he wants to do his diet. He seems not very motivated to get better. Labs today include a white count 7, hemoglobin 8.4, hematocrit 27.8, and platelet count 303,000. D-dimer from 2 days ago was 1.83. Sodium, potassium, chlorides are all normal. CO2 is 37, anion gap is 1, BUN is 29 with a creatinine of 1.04. Troponins were 0.110, 0.122, and 0.117. N- terminal proBNP was 8220. Pro-calcitonin was 0.13. Progress note dated 07/03/2020. 80-year-old male, seen 2 days ago in consultation. The patient was hospitalized from May 20 through June 12 for COVID 19 pneumonia. The patient was discharged to a snf. The patient came back into the hospital on the , with increasing shortness of breath. The patient has a history of acute coronary syndrome, ischemic cardiomyopathy, severe pulmonary hypertension, diabetes, anemia, and general medical debility. Currently, the patient is on BiPAP, with settings of IPAP 12, EPAP 6, and 60%. Saturations are 97%. The pa elinor is not receiving any IV fluids. He is currently sleeping and appears to be in no distress. He is nearly flat on his back. Current labs include a white count 6.8, hemoglobin 7.8, hematocrit 26.2, and platelet count 378,000. Sodium 140, potassium 4.6, chloride 99, CO2 38, anion gap 3, BUN 34, creatinine 1.31. Chest x-ray from the shows diffuse bilateral airspace disease. Progress note dated 07/04/2020. 80-year-old male, seen a couple days ago in consultation. The patient remains on 15 L high flow O2. The patient is not receiving any IV fluids. The patient is a DO NOT RESUSCITATE. The patient openly states that he wants to . He is going to speak to his son about that later today. He has a history of acute coronary syndrome, ischemic cardiomyopathy, pulmonary hypertension, diabetes, anemia, and general medical debility. The patient was hospitalized from May 20 through June 12 for COVID 19 pneumonia. Labs today include a sodium 139, potassium 4.9, chlorides 97, CO2 40, anion gap 2, BUN 32, creatinine 1.08. Progress note dated 07/05/2020. 80-year-old male, currently on 15 L high flow O2. The patient is a DO NOT RESUSCITATE. He's not receiving any IV fluids. He's been saying all along, that he just wants to . He apparently had a conversation with his son yesterday about it according to the nurse. The patient is extremely deaf. Very hard to communicate with. His legs are quite swollen. His bicarbonate concentration today on the electrolyte profile is 44. He does have history of chronic hypercapnic respiratory failure. White count 7, hemoglobin 8.4, hematocrit 27.9, and platelet count 420,000. Sodium 142, potassium 4.2, chlorides 96, CO2 44, anion gap 2, BUN 27, and creatinine 1. No recent chest x- ray to report. The patient was hospitalized between May 20 of June 12 for COVID 19 pneumonia. Objective - Vital Signs Vital signs: Vital Signs Temp 97.7 F 07/05/20 11:41 Pulse 59 L 07/05/20 11:41 Resp 18 07/05/20 11:41 BP 131/88 07/05/20 11:41 Pulse Ox 95 07/05/20 11:41 Intake & Output 07/04/20 07/05/20 07/05/20 18:59 06:59 18:59 Intake Total 470 145 0 Output Total 550 1025 Balance -80 -880 0 Weight 134.5 kg Intake: Oral 470 145 0 Output: Urine 550 1025 Other: Voiding Method Urinal Urinal Urinal # Voids 1 1 1 # Bowel Movements 1 - Exam No acute distress, sleeping, currently on 15 L high flow oxygen, with saturations of 95 %. HEENT examination is grossly unremarkable. Extremely hard of hearing. Neck supple. Full range of motion. No adenopathy thyromegaly or neck vein distention. Cardiovascular examination reveals regular rhythm rate. S1-S2 normal. No S3 or S4. No discernible murmur noted. Heart rate is 59 bpm. Lungs reveal bibasilar crackles. No rhonchi or wheezes. Breath sounds equal bilaterally. Abdomen soft bowel sounds are heard. No masses or tenderness. Extremities are intact. No cyanosis or clubbing. There is peripheral edema. Skin reveals chronic venous stasis changes. Neurologic examination is brief but nonfocal. - Labs CBC & Chem 7: 07/05/20 07:41 07/05/20 07:41 Labs: Abnormal Lab Results - Last 24 Hours (Table) 07/04/20 07/04/20 07/05/20 Range/Units 17:04 20:06 06:05 RBC (4.30-5.90) m/uL Hgb (13.0-17.5) gm/dL Hct (39.0-53.0) % MCV (80.0-100.0) fL MCHC (31.0-37.0) g/dL RDW (11.5-15.5) % Chloride (98-107) mmol/L Carbon Dioxide (22-30) mmol/L BUN (9-20) mg/dL Glucose (74-99) mg/dL POC Glucose (mg/dL) 303 H 240 H 195 H (75-99) mg/dL Calcium (8.4-10.2) mg/dL 07/05/20 07/05/20 07/05/20 Range/Units 07:41 07:41 11:53 RBC 2.74 L (4.30-5.90) m/uL Hgb 8.4 L (13.0-17.5) gm/dL Hct 27.9 L (39.0-53.0) % MCV 101.5 H (80.0-100.0) fL MCHC 30.1 L (31.0-37.0) g/dL RDW 17.3 H (11.5-15.5) % Chloride 96 L (98-107) mmol/L Carbon Dioxide 44 H* (22-30) mmol/L BUN 27 H (9-20) mg/dL Glucose 179 H (74-99) mg/dL POC Glucose (mg/dL) 173 H (75-99) mg/dL Calcium 8.3 L (8.4-10.2) mg/dL Assessment and Plan Assessment: Acute on chronic shortness breath, with hypoxemic respiratory failure, secondary to CHF exacerbation, with systolic dysfunction. Recent hospitalization for COVID 19 pneumonia, status post discharged to a nursing facility. Rule out non-ST segment elevation myocardial infarction. Coronary artery disease, with previous stenting. History of ischemic cardiomyopathy, status post AICD. History of moderate to severe pulmonary hypertension. Type 2 diabetes mellitus. History of chronic anemia. Previous history of tobacco use. General medical debility. Extremely hard of hearing. Plan: Plan dated 07/02/2020. The patient will continue with Lasix therapy. In addition, I try to motivate him to get better. He is lying on his side, stating that he wishes to , and I told him that he wants to get better, he needs to be more motivated. Medications, ALLERGIES, problem list, and x-ray reports and radiographic picture are all reviewed. Current microbiology is negative are pending. Currently, the patient's on vitamin C, Lovenox, zinc, and usual medications. No additional recommendations are made. Prognosis is guarded. Plan dated 07/03/2020. The patient's N-terminal proBNP was 8220. Certainly some of his abnormalities on chest x-ray could in fact, be fluid overload. The patient clinically looks reasonably well on BiPAP, with settings of IPAP 12, EPAP 6, and 60%. Saturations are 97%. He's not receiving any IV fluids. The patient's on vitamin C, Lovenox, zinc, and his usual medications. We'll continue to follow. He's been seen by cardiology. His pro-calcitonin level is only 0.13. I will stop the antibiotics. Additional recommendations and suggestions are forthcoming. Plan dated 07/04/2020. The patient continues to verbalize that he wants to . The patient is a DO NOT RESUSCITATE. He is going to speak to his son today. I think would be very appropriate to get a palliative care consult hospice consult on this patient. The patient's on high flow nasal cannula at 15 L. He is not receiving any IV fluids. His prognosis is very poor. Additional recommendations and suggestions are forthcoming. The patient remains on vitamin C, Lovenox, zinc, and other usual medications. Plan dated 07/05/2020. The patient's currently on 15 L high flow oxygen. He was actually sleeping when I first came into the room. He was in no distress. The patient is a DO NOT RESUSCITATE/DO NOT INTUBATE. He apparently had a discussion with the son about possible palliative care, or hospice. The patient is not receiving any IV fluids. The patient's overall prognosis is extremely poor. The patient's medications are reviewed. Labs and x-rays are reviewed. Time with Patient: Less than 30
--- NOTE | 2020-07-05 13:37 | P.PN ---
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 Follows in the office with Dr. Stephenson. We are being consulted for congestive heart failure and elevated troponin. Patient presents to the emergency department with shortness of breath and fever. Patient is a poor historian, very hard of hearing. Patient recently hospitalized on 05/20/20-06/12/20 with COVID-19 pneumonia. Patient denies chest pain, palpitations, syncope or near syncope. DIAGNOSTICS EKG: sinus rhythm with first degree AV block, Twave inversions, leads I, aVL, ST depression in leads V2, V3. Echo 04/2020 in the office- EF 35-40%, mild TR, mild MR, grade 1 diastolic dysfunction Chest x-ray- pulmonary edema is slightly worse than last exam Laboratory data reviewed, Troponin 0.11, 0.12, 0.11, BNP 8,220, d-dimer 1.83, Viral PCR negative, Covid-19 negative 07/02/20: 2-D echo obtained revealed EF between 40-45%, with hypokinesis, mild MR, mild TR, mild to moderate pulmonary hypertension, no pericardial effusion. 07/04/20: Patient seen and examined at bedside, no acute distress. He states his breathing has improved however continues to be short of breath with ambulation. Overnight patient requiring increased oxygen requirements up to 15 L high flow nasal cannula. Patient requiring BiPAP last night. Repeat chest x-ray shows diffuse bilateral infiltrates, heart size is stable. Patient's laboratory data reviewed, hemoglobin 7.8 (8.4 yesterday), sodium 140, potassium 4.6, serum creatinine increased 1.31 (1.04 yesterday), magnesium 2.1. 07/04/20: Patient is maintained on 15L high flow nasal cannula and still requiring BiPAP. Patient does seem depressed about his current health state. Blood pressure 120/74, heart rate 71, 96% on BiPAP sodium 139, potassium 4.9, acute kidney inju ry improving with serum creatinine 1.08, magnesium 2.0. Patient is currently being maintained on aspirin 81 mg daily, Coreg 6.25 mg twice a day, Plavix 75 mg daily, Lasix 40 mg twice a day, Imdur 30 mg daily. Patient continues to have good urine output 1.6L out in the past 24 hours. Also with 1Kg weight loss today. 07/05: Patient is currently on Lasix 40 mg po twice daily. He has been afebrile, H R 73, BP 131/59, PO 97% on 15L HF nasal cannula. Patient is stable from yesterday. Repeat blood work reveals WBC 7.0, HGB 8.4, PLT 420. He 142, potassium 4.2, chloride 96, CO2 44, BUN 27 and creatinine 1. PHYSICAL EXAM: VITAL SIGNS: Reviewed GENERAL: No acute distress. Appears debilitated. HEENT: Head is normocephalic. No JVD or thyromegaly LUNGS: Respirations even and unlabored. Lungs bibasilar crackles HEART: Regular rate and rhythm. S1 and S2 heard. ABDOMEN: Soft. Nondistended. Nontender. EXTREMITIES: 3+ pitting Bilateral pedal edema. NEUROLOGIC: Awake and alert. Oriented x 3. ASSESSMENT: Acute Hypoxic Respiratory failure - Patient was started on rocephin for possible pneumonia Coronary artery disease s/p PCI mid RCA, proximal RCA in 07/2019, Acute on chronic heart failure with reduced ejection fraction Mildly elevated troponin- not likely acute coronary syndrome, troponin not increasing, patient denies chest discomfort. most likely realted to patient's CKD and hypoxia Ischemic cardiomyopathy Permanent cardiac pacemaker Type 2 Diabetes HTN Dyslipidemia Recent hospitalization for COVID-19, was discharged to a nursing facility. Acute Kidney Injury - improving 1.08 today PLAN: No changes today Continue Lasix 40 mg oral twice daily Pulmonary is following patient is on empiric IV Rocephin Patient's respiratory status appears more pulmonary then congestive heart failure at this time. Pulmonary is following Continue to monitor renal function and electrolytes Continue carvedilol 6.25mg BID, aspirin, plavix and statin Patient was on losartan 50mg daily, however, has been held due to hyperkalemia and renal function, Will continue hydralazine 25mg BID. Will continue to monitor BMP I/Os, daily weights Further recommendations based on clinical course. Prognosis is guarded Nurse practitioner note has been reviewed by physician. Signing provider agrees with the documented findings, assessment, and plan of care. Objective - Vital Signs Vital signs: Vital Signs Temp 98.3 F 07/05/20 10:00 Pulse 73 07/05/20 10:00 Resp 20 07/05/20 10:00 BP 131/59 07/05/20 10:00 Pulse Ox 97 07/05/20 10:00 Intake & Output 07/04/20 07/05/20 07/05/20 18:59 06:59 18:59 Intake Total 470 145 0 Output Total 550 1025 Balance -80 -880 0 Weight 134.5 kg Intake: Oral 470 145 0 Output: Urine 550 1025 Other: Voiding Method Urinal Urinal Urinal # Voids 1 1 # Bowel Movements 1 - Labs CBC & Chem 7: 07/05/20 07:41 07/05/20 07:41 Labs: Abnormal Lab Results - Last 24 Hours (Table) 07/04/20 07/04/20 07/04/20 Range/Units 12:00 17:04 20:06 RBC (4.30-5.90) m/uL Hgb (13.0-17.5) gm/dL Hct (39.0-53.0) % MCV (80.0-100.0) fL MCHC (31.0-37.0) g/dL RDW (11.5-15.5) % Chloride (98-107) mmol/L Carbon Dioxide (22-30) mmol/L BUN (9-20) mg/dL Glucose (74-99) mg/dL POC Glucose (mg/dL) 300 H 303 H 240 H (75-99) mg/dL Calcium (8.4-10.2) mg/dL 07/05/20 07/05/20 07/05/20 Range/Units 06:05 07:41 07:41 RBC 2.74 L (4.30-5.90) m/uL Hgb 8.4 L (13.0-17.5) gm/dL Hct 27.9 L (39.0-53.0) % MCV 101.5 H (80.0-100.0) fL MCHC 30.1 L (31.0-37.0) g/dL RDW 17.3 H (11.5-15.5) % Chloride 96 L (98-107) mmol/L Carbon Dioxide 44 H* (22-30) mmol/L BUN 27 H (9-20) mg/dL Glucose 179 H (74-99) mg/dL POC Glucose (mg/dL) 195 H (75-99) mg/dL Calcium 8.3 L (8.4-10.2) mg/dL
[2020-07-05 16:42] LABS: Glucose,Whole Blood 249 mg/dL (75-99)
[2020-07-05 19:53] LABS: Glucose,Whole Blood 352 mg/dL (75-99)
[2020-07-05] MEDS: ATORVASTATIN 80 MG TAB PO SCH (20:33)
--- NOTE | 2020-07-05 21:44 | P.PN ---
Subjective This is a pleasant 80 years old male who was recently discharged from the hospital 05/20-06/12 for bilateral covid Pneumonia. He was discharge to rehab that time on 4 L/m via nasal cannula. His hospital course was complicated by lower GI bleed and GI team, thought local humerus contributing, and the recommended conservative therapy.Other chronic medical problems including diabetes mellitus, hypertension This time he was sent to ER from [facility] for increasing dyspnea his saturation were 89-93% on 5 L oxygen via nasal cannula, rest of vital signs stable and patient had fever of 100.1 Patient states that he has dyspnea for a few days but he could not specify however he denies chest pain. No coughing. Fever was documented in the emergency room. No GI or urinary symptoms. WBC is within the reference range 7.9K, hemoglobin 8.3, compared to 10.0 last time. Platelets are normal. INR is 0.9 and d-dimer 1.8. Creatinine is normal 0.9, GFR is 73, potassium is 5.4, liver enzymes are not remarkable Lactate dehydrogenase elevated 1196 as well as C-reactive protein 14.3. Troponin is elevated 0.11, 0.12, 0.11 ProBNP is 8220 Coronal virus not detected, influenza virus not detected, SV PCR not detected Chest x-ray: Pulmonary edema slightly worse than last time with evidence of congestive heart failure or RVS Recent echo on 07/22/19: Ejection fraction 45-50% with wall hypokinesia In the emergency room patient was started on ceftriaxone and Lasix 40 mg twice daily. Ceftriaxone was continued by java lead architect 07/02/2020 Patient dyspnea is improving and today he was sitting at bedside however he still gets short of breath with exertion. He remains on 5 L of oxygen via nasal cannula. On exam he still have bilateral basal and mid plunk amputation. Patient is hemodynamically stable, labs reviewed and hemoglobin is stable. He remains on ceftriaxone as he has fever on admission and pneumonia is suspected Also he remains on Lasix 40 mg IV twice daily. Aspirin is admitted today to have his Plavix which is home medication per cardiology team recommendation Triamcinolone 0.1% topical is admitted to both legs for dermatitis with scaling 07/03/2020 Patient oxygen requirement increased last night to 15 L/m to keep oxygen saturation in the low 90s, he was slightly placed on BiPAP overnight and this morning, patient looks tired while as on BiPAP. With setting of 12/6 and FiO2 of 60%. Labs from today are still pending He had fever on admission and subsided. Repeat chest x-ray today showing bilateral infiltrates, similar to yesterday. Pulmonary and cardiology teams on the case Echocardiogram showed ejection fraction of 40-45% with moderate LVH and hypokinesia. patient remains on Lasix 40 mg twice daily, and ceftriaxone for fever on admission. Also he is on Plavix at home while aspirin 81 mg is added yesterday. coronavirus was not detected on admission 07/04/2020 Patient still significantly hypoxic, this morning was still on BiPAP and later on for the day he was on 15 L of oxygen per minute. However he was able to sit upright in chair. And that he is hemodynamically stable. His creatinine is better today at 1.0, because of that his Lasix was increased to twice daily. Continue with fluid restriction about 1000 per day. He remains on hydralazine, as well as aspirin and Plavix. Triamcinolone. Antibiotics were discontinued as per gastroscopy and was low by pulmonary team Pulmonary team also recommending palliative care consults, we will discuss with family and patient. 07/05/2020 Patient remains tired and lethargic and remains on 15 L oxygen via nasal cannula. No much improvement while he is on oral Lasix. Patient remains in respiratory distress, he told tenderness of his son that he is tired and he cannot keep doing this intake and he wants to go. Today I had discussion with his son anuj, he did not have final decision about pursuing palliative consult or hospice care, he wanted to discuss it with his father again tomorrow and review his illness with me. I explained for the patient's poor prognosis of his diagnoses. Patient is currently DO NOT RESUSCITATE/DO NOT INTUBATE Objective - Vital Signs Vital signs: Vital Signs Temp 97.7 F 07/05/20 11:41 Pulse 69 07/05/20 16:40 Resp 20 07/05/20 16:40 BP 128/57 07/05/20 16:40 Pulse Ox 90 L 07/05/20 16:40 Intake & Output 07/05/20 07/05/20 07/06/20 06:59 18:59 06:59 Intake Total 145 118 Output Total 1025 400 Balance -880 -282 Weight 134.5 kg Intake: Oral 145 118 Output: Urine 1025 400 Other: Voiding Method Urinal Urinal # Voids 1 1 - Exam -GENERAL: The patient is alert and oriented x3, not in any acute distress. Obese HEENT: Pupils are round and equally reacting to light. EOMI. No scleral icterus. No conjunctival pallor. Normocephalic, atraumatic. No pharyngeal erythema. No thyromegaly. CARDIOVASCULAR: S1 and S2 present. No murmurs, rubs, or gallops. -PULMONARY: Chest is clear to auscultation, no bilateral basal crepitation. No wheezing ABDOMEN: Soft, nontender, nondistended, normoactive bowel sounds. No palpable organomegaly. MUSCULOSKELETAL: No joint swelling or deformity. -EXTREMITIES: No cyanosis, clubbing, or pedal edema. Bilateral leg redness and scaling from dermatitis NEUROLOGICAL: Gross neurological examination did not reveal any focal deficits. SKIN: No rashes. no petechiae. - Labs CBC & Chem 7: 07/05/20 07:41 07/05/20 07:41 Labs: Abnormal Lab Results - Last 24 Hours (Table) 07/05/20 07/05/20 07/05/20 Range/Units 06:05 07:41 07:41 RBC 2.74 L (4.30-5.90) m/uL Hgb 8.4 L (13.0-17.5) gm/dL Hct 27.9 L (39.0-53.0) % MCV 101.5 H (80.0-100.0) fL MCHC 30.1 L (31.0-37.0) g/dL RDW 17.3 H (11.5-15.5) % Chloride 96 L (98-107) mmol/L Carbon Dioxide 44 H* (22-30) mmol/L BUN 27 H (9-20) mg/dL Glucose 179 H (74-99) mg/dL POC Glucose (mg/dL) 195 H (75-99) mg/dL Calcium 8.3 L (8.4-10.2) mg/dL 07/05/20 07/05/20 07/05/20 Range/Units 11:53 16:41 19:52 RBC (4.30-5.90) m/uL Hgb (13.0-17.5) gm/dL Hct (39.0-53.0) % MCV (80.0-100.0) fL MCHC (31.0-37.0) g/dL RDW (11.5-15.5) % Chloride (98-107) mmol/L Carbon Dioxide (22-30) mmol/L BUN (9-20) mg/dL Glucose (74-99) mg/dL POC Glucose (mg/dL) 173 H 249 H 352 H (75-99) mg/dL Calcium (8.4-10.2) mg/dL Assessment and Plan Assessment: Acute pulmonary edema with acute on chronic CHF, combined diastolic and systolic dysfunction is suspected with ejection fraction 35-40% Severe Acute hypoxic respiratory failure Elevated troponin, could be due to renal disease versus coronary artery disease Fever on admission, possible due to pneumonia Bilateral leg dermatitis Recent covid infection (hospitalized 05/20-06/12) Chronic kidney disease stage III Plan: This is a pleasant 80 years old male who presents with systolic and diastolic CHF, . Continue with Lasix, BiPAP as needed, otherwise high flow oxygen.Cardiology consult. Pulmonary team were already consulted. Continue with Plavix. Aspirin added. Start triamcinolone ointment. Pulmonary team recommended palliative consults,Case discussed with the son, he has faint decision if he wants and his father to pursue with palliative consults or not. Resume home medication. Monitor lytes and vitals. DVT and GI prophylaxis. Further recommendations depends on the clinical course of the patient DVT prophylaxis: Subcutaneous Lovenox GI Prophylaxis: Pepcid Prognosis is guarded
[2020-07-06 05:56] LABS: Glucose,Whole Blood 198 mg/dL (75-99)
[2020-07-06] MEDS: carvediloL 6.25 MG TAB PO SCH ×2 (06:26→16:44)
[2020-07-06] MEDS: INSULIN ASPART (NovoLOG) 100 UNIT/ML VIAL SQ SCH ×4 (06:26→21:17)
[2020-07-06 08:43] LABS: Anisocytosis Slight; HCT 26.5 % (39.0-53.0); HGB 8.4 gm/dL (13.0-17.5); Hypochromasia Marked; MCH 31.5 pg (25.0-35.0); MCHC 31.5 g/dL (31.0-37.0); Macrocytosis Slight; Mean Platelet Volume 7.8; Platelet Count 429 k/uL (150-450); RBC 2.65 m/uL (4.30-5.90); WBC 7.1 k/uL (3.8-10.6)
[2020-07-06 08:48] LABS: Calcium 8.3 mg/dL (8.4-10.2); Potassium 3.9 mmol/L (3.5-5.1)
[2020-07-06] MEDS: ENOXAPARIN 40 MG/0.4 ML SYRINGE SQ SCH (10:11)
[2020-07-06] MEDS: ASPIRIN 81 MG PO SCH (10:11)
[2020-07-06] MEDS: ISOSORBIDE MONONITRATE ER 30 MG TAB.ER.24H PO SCH (10:12)
[2020-07-06] MEDS: FERROUS SULFATE 325 MG TAB PO SCH (10:12)
[2020-07-06] MEDS: FUROSEMIDE 40 MG TAB PO SCH ×2 (10:12→16:44)
[2020-07-06] MEDS: glipiZIDE 10 MG TAB PO SCH ×2 (10:12→21:17)
[2020-07-06] MEDS: hydrALAZINE HCL 25 MG TAB PO SCH ×2 (10:12→21:17)
[2020-07-06] MEDS: CLOPIDOGREL 75 MG TAB PO SCH (10:12)
[2020-07-06] MEDS: FAMOTIDINE 20 MG TAB PO SCH (10:12)
[2020-07-06] MEDS: TRIAMCINOLONE ACET 0.1% OINTMENT 15 GM TUBE TOPICAL SCH ×3 (10:12→21:17)
[2020-07-06 11:55] LABS: Glucose,Whole Blood 195 mg/dL (75-99)
[2020-07-06 16:53] LABS: Glucose,Whole Blood 122 mg/dL (75-99)
[2020-07-06 19:53] LABS: Glucose,Whole Blood 277 mg/dL (75-99)
[2020-07-06] MEDS: ATORVASTATIN 80 MG TAB PO SCH (21:18)
[2020-07-06] MEDS ORDERED: FUROSEMIDE 10 MG/ML 4 ML VIAL IV STA (23:11)
--- NOTE | 2020-07-06 23:13 | P.PN ---
Subjective This is a pleasant 80 years old male who was recently discharged from the hospital 05/20-06/12 for bilateral covid Pneumonia. He was discharge to rehab that time on 4 L/m via nasal cannula. His hospital course was complicated by lower GI bleed and GI team, thought local humerus contributing, and the recommended conservative therapy.Other chronic medical problems including diabetes mellitus, hypertension This time he was sent to ER from [facility] for increasing dyspnea his saturation were 89-93% on 5 L oxygen via nasal cannula, rest of vital signs stable and patient had fever of 100.1 Patient states that he has dyspnea for a few days but he could not specify however he denies chest pain. No coughing. Fever was documented in the emergency room. No GI or urinary symptoms. WBC is within the reference range 7.9K, hemoglobin 8.3, compared to 10.0 last time. Platelets are normal. INR is 0.9 and d-dimer 1.8. Creatinine is normal 0.9, GFR is 73, potassium is 5.4, liver enzymes are not remarkable Lactate dehydrogenase elevated 1196 as well as C-reactive protein 14.3. Troponin is elevated 0.11, 0.12, 0.11 ProBNP is 8220 Coronal virus not detected, influenza virus not detected, SV PCR not detected Chest x-ray: Pulmonary edema slightly worse than last time with evidence of congestive heart failure or RVS Recent echo on 07/22/19: Ejection fraction 45-50% with wall hypokinesia In the emergency room patient was started on ceftriaxone and Lasix 40 mg twice daily. Ceftriaxone was continued by supervisory it specialist 07/02/2020 Patient dyspnea is improving and today he was sitting at bedside however he still gets short of breath with exertion. He remains on 5 L of oxygen via nasal cannula. On exam he still have bilateral basal and mid plunk amputation. Patient is hemodynamically stable, labs reviewed and hemoglobin is stable. He remains on ceftriaxone as he has fever on admission and pneumonia is suspected Also he remains on Lasix 40 mg IV twice daily. Aspirin is admitted today to have his Plavix which is home medication per cardiology team recommendation Triamcinolone 0.1% topical is admitted to both legs for dermatitis with scaling 07/03/2020 Patient oxygen requirement increased last night to 15 L/m to keep oxygen saturation in the low 90s, he was slightly placed on BiPAP overnight and this morning, patient looks tired while as on BiPAP. With setting of 12/6 and FiO2 of 60%. Labs from today are still pending He had fever on admission and subsided. Repeat chest x-ray today showing bilateral infiltrates, similar to yesterday. Pulmonary and cardiology teams on the case Echocardiogram showed ejection fraction of 40-45% with moderate LVH and hypokinesia. patient remains on Lasix 40 mg twice daily, and ceftriaxone for fever on admission. Also he is on Plavix at home while aspirin 81 mg is added yesterday. coronavirus was not detected on admission 07/04/2020 Patient still significantly hypoxic, this morning was still on BiPAP and later on for the day he was on 15 L of oxygen per minute. However he was able to sit upright in chair. And that he is hemodynamically stable. His creatinine is better today at 1.0, because of that his Lasix was increased to twice daily. Continue with fluid restriction about 1000 per day. He remains on hydralazine, as well as aspirin and Plavix. Triamcinolone. Antibiotics were discontinued as per gastroscopy and was low by pulmonary team Pulmonary team also recommending palliative care consults, we will discuss with family and patient. 07/05/2020 Patient remains tired and lethargic and remains on 15 L oxygen via nasal cannula. No much improvement while he is on oral Lasix. Patient remains in respiratory distress, he told tenderness of his son that he is tired and he cannot keep doing this intake and he wants to go. Today I had discussion with his son anuj, he did not have final decision about pursuing palliative consult or hospice care, he wanted to discuss it with his father again tomorrow and review his illness with me. I explained for the patient's poor prognosis of his diagnoses. Patient is currently DO NOT RESUSCITATE/DO NOT INTUBATE 07/06/20 Patient remains on 15 L oxygen and with some dyspnea. Pulmonary team on the case and they recommend palliative care consult, his prognosis is poor. Today I have a lengthy discussion with the patient and nurse at bedside and all his questions were answered to his satisfaction. I talked to him and explained to his illness, and his poor prognosis. He still wants to talk to his son's to decide whether to call palliative consult. That is still tachypneic at 25, needing BiPAP at bedtime Hemoglobin is 8.4 today. And after last normal. Creatinine 1.0. He is on oral Lasix 40 mg twice daily. We'll give him another IV dose of Lasix today. Monitor creatinine and electrolytes Objective - Vital Signs Vital signs: Vital Signs Temp 98.1 F 07/06/20 12:25 Pulse 79 07/06/20 12:25 Resp 20 07/06/20 12:25 BP 151/67 07/06/20 12:25 Pulse Ox 95 07/06/20 12:25 Intake & Output 07/05/20 07/06/20 07/06/20 18:59 06:59 18:59 Intake Total 118 120 0 Output Total 906 644 0877 Balance -571 -163 -1000 Weight 133 kg Intake: Oral 118 120 0 Output: Urine 019 [id number] Other: Voiding Method Urinal Urinal Urinal # Voids 1 2 - Exam -GENERAL: The patient is alert and oriented x3, not in any acute distress. Obese HEENT: Pupils are round and equally reacting to light. EOMI. No scleral icterus. No conjunctival pallor. Normocephalic, atraumatic. No pharyngeal erythema. No thyromegaly. CARDIOVASCULAR: S1 and S2 present. No murmurs, rubs, or gallops. -PULMONARY: Chest is clear to auscultation, no bilateral basal crepitation. No wheezing ABDOMEN: Soft, nontender, nondistended, normoactive bowel sounds. No palpable organomegaly. MUSCULOSKELETAL: No joint swelling or deformity. -EXTREMITIES: No cyanosis, clubbing, or pedal edema. Bilateral leg redness and scaling from dermatitis NEUROLOGICAL: Gross neurological examination did not reveal any focal deficits. SKIN: No rashes. no petechiae. - Labs CBC & Chem 7: 07/06/20 07:39 07/06/20 07:39 Labs: Abnormal Lab Results - Last 24 Hours (Table) 07/05/20 07/05/20 07/06/20 Range/Units 16:41 19:52 05:54 RBC (4.30-5.90) m/uL Hgb (13.0-17.5) gm/dL Hct (39.0-53.0) % RDW (11.5-15.5) % Chloride (98-107) mmol/L Carbon Dioxide (22-30) mmol/L BUN (9-20) mg/dL Glucose (74-99) mg/dL POC Glucose (mg/dL) 249 H 352 H 198 H (75-99) mg/dL Calcium (8.4-10.2) mg/dL 07/06/20 07/06/20 07/06/20 Range/Units 07:39 07:39 11:54 RBC 2.65 L (4.30-5.90) m/uL Hgb 8.4 L (13.0-17.5) gm/dL Hct 26.5 L (39.0-53.0) % RDW 17.0 H (11.5-15.5) % Chloride 94 L (98-107) mmol/L Carbon Dioxide 47 H* (22-30) mmol/L BUN 25 H (9-20) mg/dL Glucose 167 H (74-99) mg/dL POC Glucose (mg/dL) 195 H (75-99) mg/dL Calcium 8.3 L (8.4-10.2) mg/dL Assessment and Plan Assessment: Acute pulmonary edema with acute on chronic CHF, combined diastolic and systolic dysfunction is suspected with ejection fraction 35-40% Severe Acute hypoxic respiratory failure Elevated troponin, could be due to renal disease versus coronary artery disease Fever on admission, possible due to pneumonia Bilateral leg dermatitis Recent covid infection (hospitalized 05/20-06/12) Chronic kidney disease stage III Plan: This is a pleasant 80 years old male who presents with systolic and diastolic CHF, . Continue with Lasix, BiPAP as needed, otherwise high flow oxygen.Cardiology consult. Pulmonary team were already consulted. Continue with Plavix. Aspirin added. Start triamcinolone ointment. Pulmonary team recommended palliative consults,Case discussed with the patient and his son, they haven't decided. if he wants and his father to pursue with palliative consults or not. Resume home medication. Monitor lytes and vitals. DVT and GI prophylaxis. Further recommendations depends on the clinical course of the patient DVT prophylaxis: Subcutaneous Lovenox GI Prophylaxis: Pepcid Prognosis is guarded
[2020-07-07 06:21] LABS: Glucose,Whole Blood 217 mg/dL (75-99)
[2020-07-07] MEDS: INSULIN ASPART (NovoLOG) 100 UNIT/ML VIAL SQ SCH ×4 (06:28→21:07)
[2020-07-07] MEDS: carvediloL 6.25 MG TAB PO SCH ×2 (06:28→18:00)
[2020-07-07 08:25] LABS: Calcium 8.2 mg/dL (8.4-10.2); Potassium 3.5 mmol/L (3.5-5.1)
[2020-07-07] MEDS: FAMOTIDINE 20 MG TAB PO SCH (09:07)
[2020-07-07] MEDS: CLOPIDOGREL 75 MG TAB PO SCH (09:08)
[2020-07-07] MEDS: hydrALAZINE HCL 25 MG TAB PO SCH ×2 (09:08→21:06)
[2020-07-07] MEDS: glipiZIDE 10 MG TAB PO SCH ×2 (09:08→21:07)
[2020-07-07] MEDS: FUROSEMIDE 40 MG TAB PO SCH (09:08)
[2020-07-07] MEDS: ASPIRIN 81 MG PO SCH (09:08)
[2020-07-07] MEDS: FERROUS SULFATE 325 MG TAB PO SCH (09:08)
[2020-07-07] MEDS: ISOSORBIDE MONONITRATE ER 30 MG TAB.ER.24H PO SCH (09:08)
[2020-07-07] MEDS: ENOXAPARIN 40 MG/0.4 ML SYRINGE SQ SCH (09:08)
[2020-07-07] MEDS: TRIAMCINOLONE ACET 0.1% OINTMENT 15 GM TUBE TOPICAL SCH ×3 (09:44→21:07)
[2020-07-07 12:43] LABS: Glucose,Whole Blood 333 mg/dL (75-99)
[2020-07-07 14:39] LABS: Glucose,Whole Blood 277 mg/dL (75-99)
[2020-07-07 17:00] LABS: Glucose,Whole Blood 267 mg/dL (75-99)
[2020-07-07] MEDS: FUROSEMIDE 10 MG/ML 4 ML VIAL IV SCH (18:00)
[2020-07-07 20:30] LABS: Glucose,Whole Blood 191 mg/dL (75-99)
[2020-07-07] MEDS: ATORVASTATIN 80 MG TAB PO SCH (21:06)
[2020-07-08] MEDS: FUROSEMIDE 10 MG/ML 4 ML VIAL IV SCH (04:00)
[2020-07-08 04:46] VITALS: RESP 24
[2020-07-08 06:35] LABS: Glucose,Whole Blood 162 mg/dL (75-99)
[2020-07-08] MEDS: INSULIN ASPART (NovoLOG) 100 UNIT/ML VIAL SQ SCH ×2 (07:12→12:43)
[2020-07-08] MEDS: carvediloL 6.25 MG TAB PO SCH (07:12)
--- NOTE | 2020-07-08 07:20 | P.PN ---
Subjective This is a pleasant 80 years old male who was recently discharged from the hospital 05/20-06/12 for bilateral covid Pneumonia. He was discharge to rehab that time on 4 L/m via nasal cannula. His hospital course was complicated by lower GI bleed and GI team, thought local humerus contributing, and the recommended conservative therapy.Other chronic medical problems including diabetes mellitus, hypertension This time he was sent to ER from [facility] for increasing dyspnea his saturation were 89-93% on 5 L oxygen via nasal cannula, rest of vital signs stable and patient had fever of 100.1 Patient states that he has dyspnea for a few days but he could not specify however he denies chest pain. No coughing. Fever was documented in the emergency room. No GI or urinary symptoms. WBC is within the reference range 7.9K, hemoglobin 8.3, compared to 10.0 last time. Platelets are normal. INR is 0.9 and d-dimer 1.8. Creatinine is normal 0.9, GFR is 73, potassium is 5.4, liver enzymes are not remarkable Lactate dehydrogenase elevated 1196 as well as C-reactive protein 14.3. Troponin is elevated 0.11, 0.12, 0.11 ProBNP is 8220 Coronal virus not detected, influenza virus not detected, SV PCR not detected Chest x-ray: Pulmonary edema slightly worse than last time with evidence of congestive heart failure or RVS Recent echo on 07/22/19: Ejection fraction 45-50% with wall hypokinesia In the emergency room patient was started on ceftriaxone and Lasix 40 mg twice daily. Ceftriaxone was continued by logistics intern 07/02/2020 Patient dyspnea is improving and today he was sitting at bedside however he still gets short of breath with exertion. He remains on 5 L of oxygen via nasal cannula. On exam he still have bilateral basal and mid plunk amputation. Patient is hemodynamically stable, labs reviewed and hemoglobin is stable. He remains on ceftriaxone as he has fever on admission and pneumonia is suspected Also he remains on Lasix 40 mg IV twice daily. Aspirin is admitted today to have his Plavix which is home medication per cardiology team recommendation Triamcinolone 0.1% topical is admitted to both legs for dermatitis with scaling 07/03/2020 Patient oxygen requirement increased last night to 15 L/m to keep oxygen saturation in the low 90s, he was slightly placed on BiPAP overnight and this morning, patient looks tired while as on BiPAP. With setting of 12/6 and FiO2 of 60%. Labs from today are still pending He had fever on admission and subsided. Repeat chest x-ray today showing bilateral infiltrates, similar to yesterday. Pulmonary and cardiology teams on the case Echocardiogram showed ejection fraction of 40-45% with moderate LVH and hypokinesia. patient remains on Lasix 40 mg twice daily, and ceftriaxone for fever on admission. Also he is on Plavix at home while aspirin 81 mg is added . coronavirus was not detected on admission 07/04/2020 Patient still significantly hypoxic, this morning was still on BiPAP and later on for the day he was on 15 L of oxygen per minute. However he was able to sit upright in chair. And that he is hemodynamically stable. His creatinine is better today at 1.0, because of that his Lasix was increased to twice daily. Continue with fluid restriction about 1000 per day. He remains on hydralazine, as well as aspirin and Plavix. Triamcinolone. Antibiotics were discontinued as per gastroscopy and was low by pulmonary team Pulmonary team also recommending palliative care consults, we will discuss with family and patient. 07/05/2020 Patient remains tired and lethargic and remains on 15 L oxygen via nasal cannula. No much improvement while he is on oral Lasix. Patient remains in respiratory distress, he told tenderness of his son that he is tired and he cannot keep doing this intake and he wants to go. Today I had discussion with his son anuj, he did not have final decision about pursuing palliative consult or hospice care, he wanted to discuss it with his father again tomorrow and review his illness with me. I explained for the patient's poor prognosis of his diagnoses. Patient is currently DO NOT RESUSCITATE/DO NOT INTUBATE 07/06/20 Patient remains on 15 L oxygen and with some dyspnea. Pulmonary team on the case and they recommend palliative care consult, his prognosis is poor. Today I have a lengthy discussion with the patient and nurse at bedside and all his questions were answered to his satisfaction. I talked to him and explained to his illness, and his poor prognosis. He still wants to talk to his son's to decide whether to call palliative consult. That is still tachypneic at 25, needing BiPAP at bedtime Hemoglobin is 8.4 today. And after last normal. Creatinine 1.0. He is on oral Lasix 40 mg twice daily. We'll give him another IV dose of Lasix today. Monitor creatinine and electrolytes 07/07/2020 This is a pleasant 80 years old male presents with CHF exacerbation with ejection fraction 40-45%. On the top of his chronic kidney disease. Stage III. Echocardiogram showing 40-45% ejection fraction with moderate LVH and hypokinesia. 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 Patient was placed on IV Lasix earlier on admission and his creatinine went up so dose was lowered to 40 mg daily and twice a day. However he is BiPAP dependent most of the time and sometimes goes to nasal cannula with 50 L of oxygen. Chest x-ray showing bilateral infiltrate most likely fluid. Patient keeps saying he wants to and he does not want to continue like this. Dr. Sinha of the logistics intern thought that this is appropriate and he has very poor prognosis for his evaluation. Today I had a conference with the patient and son agata, I explained his illness and recommendation of the logistics intern, and they wanted to talk to hospice care team for more information but he hasn't chose to go for hospice yet. Today oral Lasix discharged to IV Lasix 40 mg twice daily with monitoring creatinine and electrolytes again. Solutions Sales Consultant saw patient as well Also we will add Solu-Medrol 60 mg Review of systems CONSTITUTIONAL: No fever, no malaise, no fatigue. HEENT: No recent visual problems or hearing problems. Denied any sore throat. CARDIOVASCULAR: No orthopnea, PND, no palpitations, no syncope. PULMONARY: No chest wall tenderness, no hemoptysis. GASTROINTESTINAL: No diarrhea, no nausea, no vomiting, no abdominal pain. Normoactive bowel sounds. Active Medications Generic Name Dose Route Start Last Admin Trade Name Freq PRN Reason Stop Dose Admin Aspirin 81 mg 07/02/20 09:00 07/07/20 09:08 Aspirin 81 Mg PO 81 mg DAILY PRIYA Administration Atorvastatin Calcium 80 mg 07/01/20 21:00 07/07/20 21:06 Atorvastatin 80 Mg Tab PO 80 mg HS@2100 PRIYA Administration Carvedilol 6.25 mg 07/01/20 08:45 07/08/20 07:12 Carvedilol 6.25 Mg Tab PO 6.25 mg BID-W/MEALS PRIYA Administration Clopidogrel Bisulfate 75 mg 07/02/20 09:00 07/07/20 09:08 Clopidogrel 75 Mg Tab PO 75 mg DAILY@0900 PRIYA Administration Enoxaparin Sodium 40 mg 07/01/20 12:00 07/07/20 09:08 Enoxaparin 40 Mg/0.4 Ml Syringe SQ 40 mg DAILY PRIYA Administration Famotidine 40 mg 07/02/20 09:00 07/07/20 09:07 Famotidine 20 Mg Tab PO 40 mg DAILY@0900 PRIYA Administration Ferrous Sulfate 325 mg 07/02/20 09:00 07/07/20 09:08 Ferrous Sulfate 325 Mg Tab PO 325 mg DAILY@0900 PRIYA Administration Furosemide 40 mg 07/07/20 15:52 07/08/20 04:00 Furosemide 10 Mg/Ml 4 Ml Vial IV 40 mg Q12H PRIYA Administration Glipizide 20 mg 07/01/20 21:00 07/07/20 21:07 Glipizide 10 Mg Tab PO 20 mg BID@0900,2100 PRIYA Administration Hydralazine HCl 25 mg 07/01/20 09:00 07/07/20 21:06 Hydralazine Hcl 25 Mg Tab PO 25 mg BID PRIYA Administration Insulin Aspart 0 unit 07/04/20 12:30 07/08/20 07:12 Insulin Aspart (Novolog) 100 Unit/Ml Vial SQ 2 unit ACHS PRIYA Administration Protocol Isosorbide Mononitrate 30 mg 07/01/20 09:00 07/07/20 09:08 Isosorbide Mononitrate Er 30 Mg Tab.Er.24h PO 30 mg DAILY PRIYA Administration Triamcinolone Acetonide 1 applic 07/02/20 22:30 07/07/20 21:07 Triamcinolone Acet 0.1% Ointment 15 Gm Tube TOPICAL 1 applic TID PRIYA Administration Objective - Vital Signs Vital signs: Vital Signs Temp 97.6 F 07/07/20 11:00 Pulse 77 07/07/20 11:00 Resp 18 07/07/20 11:00 BP 135/49 07/07/20 11:00 Pulse Ox 95 07/07/20 11:00 Intake & Output 07/06/20 07/07/20 07/07/20 18:59 06:59 18:59 Intake Total 230 180 Output Total 1000 1900 Balance -770 -1900 180 Weight 132.5 kg Intake: Oral 230 180 Output: Urine 1000 1900 Other: Voiding Method Urinal Urinal # Voids 1 - Exam -GENERAL: The patient is alert and oriented x3, not in any acute distress. Obese. He is on BiPAP most of the time HEENT: Pupils are round and equally reacting to light. EOMI. No scleral icterus. No conjunctival pallor. Normocephalic, atraumatic. No pharyngeal erythema. No thyromegaly. CARDIOVASCULAR: S1 and S2 present. No murmurs, rubs, or gallops. -PULMONARY: Chest is clear to auscultation, no bilateral basal crepitation. No wheezing ABDOMEN: Soft, nontender, nondistended, normoactive bowel sounds. No palpable organomegaly. MUSCULOSKELETAL: No joint swelling or deformity. -EXTREMITIES: No cyanosis, clubbing, or pedal edema. Bilateral leg redness and scaling from dermatitis NEUROLOGICAL: Gross neurological examination did not reveal any focal deficits. SKIN: No rashes. no petechiae. - Labs CBC & Chem 7: 07/06/20 07:39 07/07/20 07:57 Labs: Abnormal Lab Results - Last 24 Hours (Table) 07/06/20 07/06/20 07/07/20 Range/Units 16:52 19:52 06:20 Chloride (98-107) mmol/L Carbon Dioxide (22-30) mmol/L BUN (9-20) mg/dL Glucose (74-99) mg/dL POC Glucose (mg/dL) 122 H 277 H 217 H (75-99) mg/dL Calcium (8.4-10.2) mg/dL 07/07/20 07/07/20 Range/Units 07:57 12:01 Chloride 90 L (98-107) mmol/L Carbon Dioxide 48 H* (22-30) mmol/L BUN 24 H (9-20) mg/dL Glucose 165 H (74-99) mg/dL POC Glucose (mg/dL) 333 H (75-99) mg/dL Calcium 8.2 L (8.4-10.2) mg/dL Assessment and Plan Assessment: Acute pulmonary edema with acute on chronic CHF, combined diastolic and systolic dysfunction is suspected with ejection fraction 40-45% Possible COPD exacerbation Severe Acute hypoxic respiratory failure Elevated troponin, could be due to renal disease versus coronary artery disease Fever on admission, possible due to pneumonia Bilateral leg dermatitis Recent covid infection (hospitalized 05/20-06/12) Chronic kidney disease stage III Plan: This is a pleasant 80 years old male who presents with systolic and diastolic CHF, . Continue with Lasix, BiPAP as needed, otherwise high flow oxygen.Cardiology consult. Pulmonary team were already consulted. Continue with Plavix. Aspirin added. Start triamcinolone ointment. Pulmonary team recommended palliative consults,Case discussed with the patient and his son, they haven't decided. But they want to talk to hospice people Resume home medication. Monitor lytes and vitals. DVT and GI prophylaxis. Further recommendations depends on the clinical course of the patient DVT prophylaxis: Subcutaneous Lovenox GI Prophylaxis: Pepcid Prognosis is guarded
[2020-07-08] MEDS: ASPIRIN 81 MG PO SCH (10:28)
[2020-07-08] MEDS: ENOXAPARIN 40 MG/0.4 ML SYRINGE SQ SCH (10:28)
[2020-07-08] MEDS: FAMOTIDINE 20 MG TAB PO SCH (10:28)
[2020-07-08] MEDS: FERROUS SULFATE 325 MG TAB PO SCH (10:29)
[2020-07-08] MEDS: TRIAMCINOLONE ACET 0.1% OINTMENT 15 GM TUBE TOPICAL SCH (10:29)
[2020-07-08] MEDS: CLOPIDOGREL 75 MG TAB PO SCH (10:29)
[2020-07-08] MEDS: ISOSORBIDE MONONITRATE ER 30 MG TAB.ER.24H PO SCH (10:29)
[2020-07-08] MEDS: methylPREDNISolone SOD SUCCI 125 MG/2 ML VIAL IV SCH ×2 (10:32→12:44)
[2020-07-08] MEDS: hydrALAZINE HCL 25 MG TAB PO SCH (10:32)
[2020-07-08] MEDS: glipiZIDE 10 MG TAB PO SCH (10:32)
[2020-07-08 11:56] LABS: Glucose,Whole Blood 241 mg/dL (75-99)
[2020-07-08 12:41] VITALS: BP 111/69; PULSE 72; TEMP 99.1
== END 2020-07-08 15:52 | disposition hospice, inpatient (51) | DRG 291 ==
LOC: EC 21:17 → SUPCPDRO 21:17 → 3SCARD 22:41
PROVIDERS: ADMIT Hospitalist; ATTEND Hospitalist
PROC: 5A0935A Assistance with Respiratory Ventilation, Less than 24 Consecutive Hours, High Flow/Velocity Cannula (ICD-10-PCS; principal; 2020-07-03)
PROC: 5A09457 Assistance with Respiratory Ventilation, 24-96 Consecutive Hours, Continuous Positive Airway Pressure (ICD-10-PCS; 2020-07-06)
DX: I13.0 Hypertensive heart and chronic kidney disease with heart failure and stage 1 through stage 4 chronic kidney disease, or unspecified chronic kidney disease (principal); J96.21 Acute and chronic respiratory failure with hypoxia; J18.9 Pneumonia, unspecified organism; I50.43 Acute on chronic combined systolic (congestive) and diastolic (congestive) heart failure; J96.22 Acute and chronic respiratory failure with hypercapnia; N17.9 Acute kidney failure, unspecified; K62.5 Hemorrhage of anus and rectum; I24.9 Acute ischemic heart disease, unspecified; Z86.16 Personal history of COVID-19; Z87.01 Personal history of pneumonia (recurrent); H91.90 Unspecified hearing loss, unspecified ear; R50.9 Fever, unspecified; E11.9 Type 2 diabetes mellitus without complications; I11.0 Hypertensive heart disease with heart failure; Z79.02 Long term (current) use of antithrombotics/antiplatelets; Z79.899 Other long term (current) drug therapy; Z79.4 Long term (current) use of insulin; I25.5 Ischemic cardiomyopathy; I27.20 Pulmonary hypertension, unspecified; D64.9 Anemia, unspecified; Z87.891 Personal history of nicotine dependence; R53.81 Other malaise; E11.22 Type 2 diabetes mellitus with diabetic chronic kidney disease; N18.30 Chronic kidney disease, stage 3 unspecified; T38.0X5A Adverse effect of glucocorticoids and synthetic analogues, initial encounter; I25.10 Atherosclerotic heart disease of native coronary artery without angina pectoris; Z95.810 Presence of automatic (implantable) cardiac defibrillator; E78.5 Hyperlipidemia, unspecified; I25.2 Old myocardial infarction; Z98.61 Coronary angioplasty status; I44.0 Atrioventricular block, first degree; Z20.822 Contact with and (suspected) exposure to COVID-19; L30.9 Dermatitis, unspecified; Z66 Do not resuscitate; Z51.5 Encounter for palliative care; E66.9 Obesity, unspecified; J43.9 Emphysema, unspecified; Z83.3 Family history of diabetes mellitus; Z79.82 Long term (current) use of aspirin
CPT/HCPCS: 36415; 71045; 80048; 80053; 83605; 83615; 83735; 83880; 84145; 84484; 85025; 85027; 85379; 85610; 85730; 86140; 87636; 93005; 93306; 94660; 94760; 99285

== ENCOUNTER 2020-07-08 15:09 | Inpatient (IN) | payer MEDICAID ==
[2020-07-08] MEDS ORDERED: ACETAMINOPHEN TAB 325 MG TAB PO PRN (15:18)
[2020-07-08] MEDS ORDERED: LORazepam 0.5 MG TAB PO PRN (15:18)
[2020-07-08] MEDS: MORPHINE CONC SOLN 10mg/0.5mL ORAL SYRG PO SCH ×3 (16:28→23:24)
[2020-07-08] MEDS: TRIAMCINOLONE 0.1% CREAM 80 GM TUBE TOPICAL SCH ×2 (16:31→21:20)
[2020-07-08 16:46] LABS: Glucose,Whole Blood 410 mg/dL (75-99)
[2020-07-08] MEDS: INSULIN ASPART (NovoLOG) 100 UNIT/ML VIAL SQ SCH ×2 (17:50→21:19)
[2020-07-08] MEDS: methylPREDNISolone SOD SUCCI 125 MG/2 ML VIAL IV SCH ×2 (17:50→23:21)
[2020-07-08] MEDS: carvediloL 6.25 MG TAB PO SCH (17:50)
[2020-07-08 20:20] LABS: Glucose,Whole Blood 429 mg/dL (75-99)
[2020-07-08] MEDS: hydrALAZINE HCL 25 MG TAB PO SCH (21:18)
[2020-07-08] MEDS: ATORVASTATIN 80 MG TAB PO SCH (21:18)
[2020-07-08] MEDS: glipiZIDE 10 MG TAB PO SCH (21:18)
[2020-07-09] MEDS: MORPHINE CONC SOLN 10mg/0.5mL ORAL SYRG PO SCH ×5 (04:43→20:40)
[2020-07-09 06:27] LABS: Glucose,Whole Blood 388 mg/dL (75-99)
[2020-07-09] MEDS: carvediloL 6.25 MG TAB PO SCH ×2 (06:36→16:57)
[2020-07-09] MEDS: methylPREDNISolone SOD SUCCI 125 MG/2 ML VIAL IV SCH ×3 (06:36→16:57)
[2020-07-09] MEDS: INSULIN ASPART (NovoLOG) 100 UNIT/ML VIAL SQ SCH ×4 (06:37→20:39)
[2020-07-09] MEDS: FAMOTIDINE 20 MG TAB PO SCH (08:46)
[2020-07-09] MEDS: hydrALAZINE HCL 25 MG TAB PO SCH ×2 (08:46→20:39)
[2020-07-09] MEDS: CLOPIDOGREL 75 MG TAB PO SCH (08:46)
[2020-07-09] MEDS: ISOSORBIDE MONONITRATE ER 30 MG TAB.ER.24H PO SCH (08:46)
[2020-07-09] MEDS: ASPIRIN 81 MG PO SCH (08:46)
[2020-07-09] MEDS: FUROSEMIDE 40 MG TAB PO SCH (08:46)
[2020-07-09] MEDS: ENOXAPARIN 40 MG/0.4 ML SYRINGE SQ SCH (08:46)
[2020-07-09] MEDS: glipiZIDE 10 MG TAB PO SCH ×2 (08:46→20:39)
[2020-07-09] MEDS: FERROUS SULFATE 325 MG TAB PO SCH (08:46)
[2020-07-09] MEDS: TRIAMCINOLONE 0.1% CREAM 80 GM TUBE TOPICAL SCH ×3 (09:21→21:55)
[2020-07-09 11:56] LABS: Glucose,Whole Blood 488 mg/dL (75-99)
[2020-07-09 16:43] LABS: Glucose,Whole Blood 440 mg/dL (75-99)
[2020-07-09 19:45] LABS: Glucose,Whole Blood 393 mg/dL (75-99)
[2020-07-09] MEDS: ATORVASTATIN 80 MG TAB PO SCH (20:39)
[2020-07-10] MEDS: MORPHINE CONC SOLN 10mg/0.5mL ORAL SYRG PO SCH ×4 (00:03→12:49)
[2020-07-10] MEDS: methylPREDNISolone SOD SUCCI 125 MG/2 ML VIAL IV SCH ×3 (00:03→12:46)
[2020-07-10 00:19] VITALS: RESP 18
[2020-07-10 03:43] VITALS: TEMP 97.7
[2020-07-10 06:03] LABS: Glucose,Whole Blood 370 mg/dL (75-99)
[2020-07-10] MEDS: carvediloL 6.25 MG TAB PO SCH (06:44)
[2020-07-10] MEDS: INSULIN ASPART (NovoLOG) 100 UNIT/ML VIAL SQ SCH ×2 (06:44→12:49)
[2020-07-10] MEDS: CLOPIDOGREL 75 MG TAB PO SCH (08:58)
[2020-07-10] MEDS: FUROSEMIDE 40 MG TAB PO SCH (08:58)
[2020-07-10] MEDS: hydrALAZINE HCL 25 MG TAB PO SCH (08:58)
[2020-07-10] MEDS: FAMOTIDINE 20 MG TAB PO SCH (08:59)
[2020-07-10] MEDS: ASPIRIN 81 MG PO SCH (08:59)
[2020-07-10] MEDS: ENOXAPARIN 40 MG/0.4 ML SYRINGE SQ SCH (08:59)
[2020-07-10] MEDS: ISOSORBIDE MONONITRATE ER 30 MG TAB.ER.24H PO SCH (08:59)
[2020-07-10] MEDS: FERROUS SULFATE 325 MG TAB PO SCH (08:59)
[2020-07-10] MEDS: glipiZIDE 10 MG TAB PO SCH (08:59)
[2020-07-10] MEDS: TRIAMCINOLONE 0.1% CREAM 80 GM TUBE TOPICAL SCH (09:01)
[2020-07-10 12:37] VITALS: BP 141/49; PULSE 67
[2020-07-10 12:47] LABS: Glucose,Whole Blood 399 mg/dL (75-99)
--- NOTE | 2020-07-10 13:38 | P.HPIM ---
History of Present Illness H&P Date: 07/09/20 Chief Complaint: Shortness of breath This is a pleasant 80 years old male who was recently discharged from the hospital 05/20-06/12 for bilateral covid Pneumonia. He was discharge to rehab that time on 4 L/m via nasal cannula. His hospital course was complicated by lower GI bleed and GI team, thought local humerus contributing, and the recommended conservative therapy.Other chronic medical problems including diabetes mellitus, hypertension This time he was sent to ER from [facility] for increasing dyspnea his saturation were 89-93% on 5 L oxygen via nasal cannula, rest of vital signs stable and patient had fever of 100.1 Patient states that he has dyspnea for a few days but he could not specify however he denies chest pain. No coughing. Fever was documented in the emergency room. No GI or urinary symptoms. WBC is within the reference range 7.9K, hemoglobin 8.3, compared to 10.0 last time. Platelets are normal. INR is 0.9 and d-dimer 1.8. Creatinine is normal 0.9, GFR is 73, potassium is 5.4, liver enzymes are not remarkable Lactate dehydrogenase elevated 1196 as well as C-reactive protein 14.3. Troponin is elevated 0.11, 0.12, 0.11 ProBNP is 8220 Coronal virus not detected, influenza virus not detected, SV PCR not detected Chest x-ray: Pulmonary edema slightly worse than last time with evidence of congestive heart failure or RVS Recent echo on 07/22/19: Ejection fraction 45-50% with wall hypokinesia In the emergency room patient was started on ceftriaxone and Lasix 40 mg twice daily. Ceftriaxone was continued by delivery specialist 07/02/2020 Patient dyspnea is improving and today he was sitting at bedside however he still gets short of breath with exertion. He remains on 5 L of oxygen via nasal cannula. On exam he still have bilateral basal and mid plunk amputation. Patient is hemodynamically stable, labs reviewed and hemoglobin is stable. He remains on ceftriaxone as he has fever on admission and pneumonia is suspected Also he remains on Lasix 40 mg IV twice daily. Aspirin is admitted today to have his Plavix which is home medication per cardiology team recommendation Triamcinolone 0.1% topical is admitted to both legs for dermatitis with scaling 07/03/2020 Patient oxygen requirement increased last night to 15 L/m to keep oxygen saturation in the low 90s, he was slightly placed on BiPAP overnight and this morning, patient looks tired while as on BiPAP. With setting of 12/6 and FiO2 of 60%. Labs from today are still pending He had fever on admission and subsided. Repeat chest x-ray today showing bilateral infiltrates, similar to yesterday. Pulmonary and cardiology teams on the case Echocardiogram showed ejection fraction of 40-45% with moderate LVH and hypokinesia. patient remains on Lasix 40 mg twice daily, and ceftriaxone for fever on admission. Also he is on Plavix at home while aspirin 81 mg is added . coronavirus was not detected on admission 07/04/2020 Patient still significantly hypoxic, this morning was still on BiPAP and later on for the day he was on 15 L of oxygen per minute. However he was able to sit upright in chair. And that he is hemodynamically stable. His creatinine is better today at 1.0, because of that his Lasix was increased to twice daily. Continue with fluid restriction about 1000 per day. He remains on hydralazine, as well as aspirin and Plavix. Triamcinolone. Antibiotics were discontinued as per gastroscopy and was low by pulmonary team Pulmonary team also recommending palliative care consults, we will discuss with family and patient. 07/05/2020 Patient remains tired and lethargic and remains on 15 L oxygen via nasal cannula. No much improvement while he is on oral Lasix. Patient remains in respiratory distress, he told tenderness of his son that he is tired and he cannot keep doing this intake and he wants to go. Today I had discussion with his son anuj, he did not have final decision about pursuing palliative consult or hospice care, he wanted to discuss it with his father again tomorrow and review his illness with me. I explained for the patient's poor prognosis of his diagnoses. Patient is currently DO NOT RESUSCITATE/DO NOT INTUBATE 07/06/20 Patient remains on 15 L oxygen and with some dyspnea. Pulmonary team on the case and they recommend palliative care consult, his prognosis is poor. Today I have a lengthy discussion with the patient and nurse at bedside and all his questions were answered to his satisfaction. I talked to him and explained to his illness, and his poor prognosis. He still wants to talk to his son's to decide whether to call palliative consult. That is still tachypneic at 25, needing BiPAP at bedtime Hemoglobin is 8.4 today. And after last normal. Creatinine 1.0. He is on oral Lasix 40 mg twice daily. We'll give him another IV dose of Lasix today. Monitor creatinine and electrolytes 07/07/2020 This is a pleasant 80 years old male presents with CHF exacerbation with ejection fraction 40-45%. On the top of his chronic kidney disease. Stage III. Echocardiogram showing 40-45% ejection fraction with moderate LVH and hypokinesia. 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 Patient was placed on IV Lasix earlier on admission and his creatinine went up so dose was lowered to 40 mg daily and twice a day. However he is BiPAP dependent most of the time and sometimes goes to nasal cannula with 50 L of oxygen. Chest x-ray showing bilateral infiltrate most likely fluid. Patient keeps saying he wants to and he does not want to continue like this. Dr. Sinha of the delivery specialist thought that this is appropriate and he has very poor prognosis for his evaluation. Today I had a conference with the patient and son agata, I explained his illness and recommendation of the delivery specialist, and they wanted to talk to hospice care team for more information but he hasn't chose to go for hospice yet. Today oral Lasix discharged to IV Lasix 40 mg twice daily with monitoring creatinine and electrolytes again. Weatherization Specialist saw patient as well Also we will add Solu-Medrol 60 mg 07/09/2020 Patient is currently lying in the bed awake alert still requiring oxygen at 10 L via nasal cannula. Patient has been afebrile. Continue with palliative care and comfort measures. Hospice service is following. Possible transfer to hospice facility once bed is available. Continue the current management. IV steroids will be changed to prednisone by mouth. No nausea vomiting. Patient is not tolerating oral diet very well. No diarrhea. Current medications reviewed. Review of Systems As per HPI Past Medical History Past Medical History: Diabetes Mellitus, Hypertension Additional Past Medical History / Comment(s): sinusitis, diverticulits History of Any Multi-Drug Resistant Organisms: None Reported Past Surgical History: Bowel Resection, Cholecystectomy Additional Past Surgical History / Comment(s): bowel resection d/t d iverticulitis, colonoscopy Past Anesthesia/Blood Transfusion Reactions: No Reported Reaction Past Psychological History: No Psychological Hx Reported Additional Psychological History / Comment(s): pt lives with his girlfriend jose, is independant, no assistive devices.no outside services. 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 Smoking Status: Never smoker Past Alcohol Use History: Occasional Past Drug Use History: None Reported - Past Family History Mother Additional Family Medical History / Comment(s): reproductive cancer Father Family Medical History: Diabetes Mellitus Medications and Allergies Home Medications Medication Instructions Recorded Confirmed Type glipiZIDE [Glipizide] 20 mg PO BID@899,209901/29/15 07/08/20 History Pioglitazone [Actos] 30 mg PO DAILY@89907/20/19 07/08/20 History Clopidogrel Bisulfate [Plavix] 75 mg PO DAILY@89905/20/20 07/08/20 History Metoprolol Succinate (ER) [Toprol 50 mg PO DAILY@89905/20/20 07/08/20 History XL] Acetaminophen Tab [Tylenol] 650 mg PO Q6HR PRN tab 06/12/20 07/08/20 Rx Ascorbic Acid [Vitamin C] 1,000 mg PO DAILY@89906/30/20 07/08/20 History Atorvastatin [Lipitor] 80 mg PO HS@209906/30/20 07/08/20 History Famotidine [Pepcid] 40 mg PO DAILY@89906/30/20 07/08/20 History Ferrous Sulfate [Feosol] 325 mg PO DAILY@89906/30/20 07/08/20 History Furosemide [Lasix] 40 mg PO DAILY@89906/30/20 07/08/20 History Insulin Glargine,Hum.rec.anlog 60 units SQ HS@209906/30/20 07/08/20 History [Semglee Pen] Insulin Lispro [humaLOG Kwikpen] 10 unit SQ AC-TID 06/30/20 07/08/20 History Insulin Lispro [humaLOG Kwikpen] See Protocol SQ ACHS 06/30/20 07/08/20 History Levofloxacin [Levaquin] 750 mg PO DAILY 06/30/20 07/08/20 History Potassium Chloride ER [K-Dur 20] 20 meq PO DAILY@89906/30/20 07/08/20 History Zinc 50 mg PO DAILY@89906/30/2021 History Allergies Allergy/AdvReac Type Severity Reaction Status Date / Time Mushroom Allergy Vomiting Verified 06/30/20 22:27 Penicillins Allergy Unknown Verified 06/30/20 22:27 Physical Exam Vitals: Vital Signs Temp Pulse Resp BP Pulse Ox 07/09/20 13:21 85 20 07/09/20 12:00 98 F 85 20 145/54 87 L 07/09/20 08:00 97.7 F 87 18 134/63 85 L 07/09/20 04:00 71 18 90 L 07/09/20 00:00 98.1 F 80 18 147/59 89 L 07/08/20 20:00 98.3 F 85 19 155/63 89 L 07/08/20 18:39 99.1 F 68 19 147/62 94 L Intake and Output 07/08/20 07/09/20 07/09/20 22:59 06:59 14:59 Intake Total 220 240 Output Total 225 500 150 Balance -5 -500 90 Intake: Oral 220 240 Output: Urine 225 500 150 Other: Voiding Method Indwelling Catheter Indwelling Catheter Indwelling Catheter Weight 127 kg 128.3 kg -GENERAL: The patient is alert and oriented x3, not in any acute distress. Obese HEENT: Pupils are round and equally reacting to light. EOMI. No scleral icterus. No conjunctival pallor. Normocephalic, atraumatic. No pharyngeal erythema. No thyromegaly. CARDIOVASCULAR: S1 and S2 present. No murmurs, rubs, or gallops. -PULMONARY: Chest is clear to auscultation, no bilateral basal crepitation. No wheezing ABDOMEN: Soft, nontender, nondistended, normoactive bowel sounds. No palpable organomegaly. MUSCULOSKELETAL: No joint swelling or deformity. -EXTREMITIES: No cyanosis, clubbing, or pedal edema. Bilateral leg redness and scaling from dermatitis NEUROLOGICAL: Gross neurological examination did not reveal any focal deficits. SKIN: No rashes. no petechiae. Results Labs: Abnormal Lab Results - Last 24 Hours (Table) 07/08/20 07/08/20 07/09/20 Range/Units 16:44 20:19 06:25 POC Glucose (mg/dL) 410 H 429 H 388 H (75-99) mg/dL 07/09/20 Range/Units 11:54 POC Glucose (mg/dL) 488 H (75-99) mg/dL Assessment and Plan Assessment: Acute pulmonary edema with acute on chronic CHF, combined diastolic and systolic dysfunction with ejection fraction 40-45% COPD exacerbation Severe Acute on chronic hypoxic respiratory failure requiring oxygen at 10 L via nasal cannula. Elevated troponin, could be due to renal disease versus coronary artery disease. Ischemic cardiomyopathy status post AICD placement Fever on admission, possible due to pneumonia Bilateral leg dermatitis Recent covid infection (hospitalized 05/20-06/12) Chronic kidney disease stage III Diabetes type 2 Anemia of chronic disease Medical debility and bedridden Extremely hard of hearing Plan: This is a pleasant 80 years old male who presents with systolic and diastolic CHF, Lasix changed to by mouth.. Continue with Lasix, BiPAP as needed and high flow oxygen. Continue with Plavix. Aspirin added. Start triamcinolone ointment. Patient was seen by cardiology and pulmonary. Case discussed with the patient and his son. Patient's son requested hospice care consult. Currently under hospice care. DVT prophylaxis: Subcutaneous Lovenox GI Prophylaxis: Pepcid Prognosis is poor at this time Time with Patient: Greater than 30
--- NOTE | 2020-08-06 21:46 | P.DS ---
Providers Date of admission: 07/08/20 15:58 Expected date of discharge: 07/10/20 Attending physician: Zoey Pacheco Primary care physician: Zoey Pacheco Hospital Course: Discharge Diagnosis. Acute pulmonary edema with acute on chronic CHF, combined diastolic and systolic dysfunction with ejection fraction 40-45% COPD exacerbation Severe Acute on chronic hypoxic respiratory failure requiring oxygen at 10 L via nasal cannula. Elevated troponin, could be due to renal disease versus coronary artery disease. Ischemic cardiomyopathy status post AICD placement Fever on admission, possible due to pneumonia Bilateral leg dermatitis Recent covid infection (hospitalized 05/20-06/12) Chronic kidney disease stage III Diabetes type 2 Anemia of chronic disease Medical debility and bedridden Extremely hard of hearing Hospital course This is a pleasant 80 years old male who presents with systolic and diastolic CHF, was continued with Lasix, BiPAP as needed and high flow oxygen. Continue with Plavix. Aspirin added. Start triamcinolone ointment. Patient was seen by cardiology and pulmonary. Case discussed with the patient and his son. Patient's son requested hospice care consult. Patient was continued on comfort measures. Patient was discharged home with home hospice care.. Patient Condition at Discharge: Critical Plan - Discharge Summary New Discharge Prescriptions: New Aspirin 81 mg PO DAILY chew carvediloL [Coreg] 6.25 mg PO BID-W/MEALS #0 tab Isosorbide Mononitrate ER [Imdur] 30 mg PO DAILY tab.er.24h Triamcinolone 0.1% Cream [Kenalog 0.1% Cream] 1 applic TOPICAL TID applic INSULIN ASPART (NovoLOG) [NovoLOG (formulary)] 0 unit SQ ACHS vial predniSONE 0 mg PO DIRECTED #30 tab hydrALAZINE HCL [Apresoline] 25 mg PO BID #0 tab LORazepam [Ativan] 0.5 mg PO Q4HR PRN #12 tab PRN Reason: Anxiety Continue glipiZIDE [Glipizide] 20 mg PO BID@0900,2100 Clopidogrel Bisulfate [Plavix] 75 mg PO DAILY@0900 Insulin Glargine,Hum.rec.anlog [Semglee Pen] 60 units SQ HS@2100 Potassium Chloride ER [K-Dur 20] 20 meq PO DAILY@0900 Furosemide [Lasix] 40 mg PO DAILY@0900 Acetaminophen Tab [Tylenol] 650 mg PO Q6HR PRN tab PRN Reason: Fever And/ Or Pain Atorvastatin [Lipitor] 80 mg PO HS@2099 Ferrous Sulfate [Iron (65 MG Elemental)] 325 mg PO DAILY@0900 Famotidine [Pepcid] 40 mg PO DAILY@0900 Ascorbic Acid [Vitamin C] 1,000 mg PO DAILY@0900 Discontinued Pioglitazone [Actos] 30 mg PO DAILY@0900 Metoprolol Succinate (ER) [Toprol XL] 50 mg PO DAILY@0900 Insulin Lispro [humaLOG Kwikpen] See Protocol SQ ACHS Insulin Lispro [humaLOG Kwikpen] 10 unit SQ AC-TID Zinc 50 mg PO DAILY@0900 Levofloxacin [Levaquin] 750 mg PO DAILY Discharge Medication List glipiZIDE [Glipizide] 20 mg PO BID@899,209901/29/15 [History] Clopidogrel Bisulfate [Plavix] 75 mg PO DAILY@0900 05/20/20 [History] Acetaminophen Tab [Tylenol] 650 mg PO Q6HR PRN tab 06/12/20 [Rx] Ascorbic Acid [Vitamin C] 1,000 mg PO DAILY@0906/30/20 [History] Atorvastatin [Lipitor] 80 mg PO HS@209906/30/20 [History] Famotidine [Pepcid] 40 mg PO DAILY@89906/30/20 [History] Ferrous Sulfate [Iron (65 MG Elemental)] 325 mg PO DAILY@0906/30/20 [History] Furosemide [Lasix] 40 mg PO DAILY@0906/30/20 [History] Insulin Glargine,Hum.rec.anlog [Semglee Pen] 60 units SQ HS@209906/30/20 [History] Potassium Chloride ER [K-Dur 20] 20 meq PO DAILY@0906/30/20 [History] Aspirin 81 mg PO DAILY chew 07/10/20 [Rx] INSULIN ASPART (NovoLOG) [NovoLOG (formulary)] 0 unit SQ ACHS vial 07/10/20 [Rx] Isosorbide Mononitrate ER [Imdur] 30 mg PO DAILY tab.er.24h 07/10/20 [Rx] LORazepam [Ativan] 0.5 mg PO Q4HR PRN #12 tab 07/10/20 [Rx] Triamcinolone 0.1% Cream [Kenalog 0.1% Cream] 1 applic TOPICAL TID applic 07/10/20 [Rx] carvediloL [Coreg] 6.25 mg PO BID-W/MEALS #0 tab 07/10/20 [Rx] hydrALAZINE HCL [Apresoline] 25 mg PO BID #0 tab 07/10/20 [Rx] predniSONE 0 mg PO DIRECTED #30 tab 07/10/20 [Rx] Discharge Disposition: HOME WITH HOSPICE
== END 2020-07-10 14:28 | disposition hospice, home (50) | DRG 951 ==
LOC: 3SCARD 15:58
PROVIDERS: ADMIT Hospitalist; ATTEND Hospitalist
DX: Z51.5 Encounter for palliative care (principal); I50.43 Acute on chronic combined systolic (congestive) and diastolic (congestive) heart failure; J96.21 Acute and chronic respiratory failure with hypoxia; I13.0 Hypertensive heart and chronic kidney disease with heart failure and stage 1 through stage 4 chronic kidney disease, or unspecified chronic kidney disease; J44.0 Chronic obstructive pulmonary disease with (acute) lower respiratory infection; J44.1 Chronic obstructive pulmonary disease with (acute) exacerbation; I25.5 Ischemic cardiomyopathy; H91.90 Unspecified hearing loss, unspecified ear; E11.22 Type 2 diabetes mellitus with diabetic chronic kidney disease; D63.8 Anemia in other chronic diseases classified elsewhere; L30.9 Dermatitis, unspecified; N18.30 Chronic kidney disease, stage 3 unspecified; Z66 Do not resuscitate; Z74.01 Bed confinement status; Z79.02 Long term (current) use of antithrombotics/antiplatelets; Z79.4 Long term (current) use of insulin; Z79.899 Other long term (current) drug therapy; Z83.3 Family history of diabetes mellitus; Z86.16 Personal history of COVID-19; Z87.01 Personal history of pneumonia (recurrent); Z95.810 Presence of automatic (implantable) cardiac defibrillator
CPT/HCPCS: 94760